=== PATIENT | female | born 1945 | race Caucasian/White ===

== ENCOUNTER 2017-07-07 05:32 | Day surgery (SDC) | payer OTHER ==
[2017-07-04 12:53] VITALS: BMI 31.0
[~2017-07-07] VITALS: Ht 172.7 cm; Wt 91.8 kg
[~2017-07-07 05:32] MED LIST: CITA20TA9 PO; FLUT0.15; LANS30CA12 PO; LEVO112T2 PO; LINA1CAP PO; LISI20TA55 PO; LORA-741 PO; METO50TA7 PO; OMEP20CA9 PO; ONDA8TAB12 PO; POLY335040 PO; VNTHFA/IN INH; WARF5TAB90 PO
[2017-07-07 05:52] VITALS: BP 165/85; PULSE 85; TEMP 36.7; O2SAT 92; Ht 172.7 cm; Wt 91.8 kg
[2017-07-07] MEDS ORDERED: LACTATED RINGER'S 1000ML 1,000 ML IV SCH (06:00)
[2017-07-07 06:28] LABS: INR 1.3 (0.9-1.1); PARTIAL THROMBOPLASTIN RATIO 1.1; PROTHROMBIN TIME (PATIENT) 13.8 SECONDS (9.0-12.0)
[2017-07-07] MEDS ORDERED: PROPOFOL IV EMULSION 10 MG/ML 20 ML VIAL IV ONE (06:51)
[2017-07-07] MEDS ORDERED: MIDAZOLAM HCL 1 MG/ML 2ML VIAL ONE (06:52)
[2017-07-07] MEDS ORDERED: FENTANYL CITRATE INJ 50 MCG/1 ML 2 ML VIAL ONE (06:52)
[2017-07-07] MEDS ORDERED: BUPIVACAINE 0.5 % 5 MG/1 ML MPF 30ML VIAL ONE (07:02)
--- NOTE | 2017-07-07 07:13 | History & Physical Bridge Note ---
H&P Re-Evaluation Bridge Note: I have examined the patient, reviewed the History & Physical and in the interval since the performance of the History & Physical I have noted the following changes of clinical significance: No changes noted
[2017-07-07] MEDS ORDERED: DEXAMETHASONE SOD INJ 4 MG/ML VIAL ONE (07:58)
[2017-07-07] MEDS ORDERED: ONDANSETRON INJ 2 MG/ML 2 ML VIAL ONE (07:58)
[2017-07-07] MEDS ORDERED: SODIUM CHLORIDE 0.9% 1000ML 1,000 ML IV SCH (08:44)
[2017-07-07] MEDS ORDERED: EpHEDrine SULFATE INJ 50 MG/ML AMP IV PRN (08:45)
[2017-07-07] MEDS ORDERED: LABETALOL HCL IV 5 MG/ML 20ML IV PRN (08:45)
[2017-07-07] MEDS ORDERED: ATROPINE SULFATE 0.1 MG/ML 5ML SYR IV PRN (08:45)
[2017-07-07] MEDS ORDERED: FENTANYL CITRATE INJ 50 MCG/1 ML 2 ML VIAL IV PRN (08:45)
[2017-07-07] MEDS ORDERED: MoRPHine SULFATE 4 MG/ML 1 ML CARP\\VIAL IV PRN (08:45)
[2017-07-07] MEDS ORDERED: PROMETHAZINE HCL INJ 12.5 MG in SODIUM CHLORIDE 0.9% 50ML 50 ML IV PRN (08:45)
[2017-07-07] MEDS ORDERED: OXYCODONE/ACETAMINOPHEN 5-325 TAB PO PRN (08:45)
[2017-07-07] MEDS ORDERED: NALOXONE HCL 0.4 MG/1 ML VIAL/CARP IV PRN (08:45)
[2017-07-07] MEDS ORDERED: ONDANSETRON INJ 2 MG/ML 2 ML VIAL IV PRN ×2 (08:45)
[2017-07-07] MEDS ORDERED: FLUMAZENIL 0.1 MG/1 ML 10 ML VIAL IV PRN (08:45)
--- NOTE | 2017-07-07 08:45 | [facility] Post Operative Brief Note ---
Immediate Operative Summary Operative Date Jul 07, 2017. Pre-Operative Diagnosis History of lymphoma, lymphadenopathy inguinal Post-Operative Diagnosis same as pre-operative Procedure(s) Performed Left Excisional Inguinal Lymph Node Biopsy Surgeon Dr. Leonel Anderson Qa Software Tester Surgeon(s) GENIE Hagen Estimated Blood Loss 5ml Findings See dictation Specimens A: Left inguinal lymph node Drains None Anesthesia General Complication(s) None Disposition Recovery Room / PACU
--- NOTE | 2017-07-07 09:00 | OPERATIVE REPORT ---
DATE OF OPERATION: 07/07/2017 PREOPERATIVE DIAGNOSIS: Left inguinal adenopathy. POSTOPERATIVE DIAGNOSIS: Same. PROCEDURE: Excisional biopsy of left inguinal lymph node. SURGEON: Dr. Anderson. EXTENSION WORK INSTRUCTOR: Gloria Gruber PA-C FINDINGS: The patient had a lymph node that measured approximately 4-5 cm x 3-4 cm in the left inguinal area. There were other lymph nodes in the surrounding tissue that were smaller. TECHNIQUE: The patient was given general anesthesia and the area was prepped and draped in the usual sterile fashion. Incision was made over the previously marked area, carried down through the subcutaneous tissue to the lymph node could be palpated. The lymph node was then away from the surrounding tissues. They were densely adherent in some areas to the wall for lymph node. I was able to bluntly dissect it away in some areas, but others areas I had used the LigaSure to divide the attachments, especially the vascular and lymphatic feeding and draining vessels. Once it was completely freed, it was removed. The wound was irrigated. There was one area with some mild oozing that was easily controlled with cautery. The deep tissues were approximated with interrupted 2-0 Vicryl. The deep subcutaneous tissue was closed with running 2-0 Vicryl. The superficial subcutaneous tissue was closed with running 3-0 Vicryl and the skin was closed with 4-0 Monocryl in a running subcuticular fashion. The skin was cleansed, dried after being anesthetized with 0.5% Marcaine. Benzoin was placed and Steri-Strips applied. The estimated blood loss was 5 mL. Sponge, needle and instrument counts were correct prior to closure. The patient tolerated the surgical procedure without complication and was transferred to recovery. I attest to the content of the Intraoperative Record and any orders documented therein. Any exception s are noted below.
--- NOTE | 2017-07-07 09:02 | Discharge Instructions ---
Discharge Instructions Date of Service Jul 07, 2017. Admission Reason for Admission: Lymph Node Enlargement Discharge Discharge Diagnosis / Problem: Same Discharge Goals Goal(s): Decrease discomfort, Diagnostic testing Activity Recommendations Activity Limitations: per Instructions/Follow-up section Exercise/Sports Limitations: as tolerated Shower/Bathe: tomorrow (Shower only) . Instructions / Follow-Up Instructions / Follow-Up ACTIVITY RECOMMENDATIONS: * Walk as much as possible. * No heavy lifting (>10 lbs.) for 1 week. SPECIAL CARE INSTRUCTIONS: * Ice to surgical site on and off until bedtime tonight. * May shower in 24 hours. Let water run over area and pat dry. * Leave steri strips on for one week. * Call the surgeon's office with any questions or concerns - (ex. temperature higher than 101 degrees F, excessive bleeding or pain). MEDICATIONS: Resume previous medications unless instructed otherwise by your surgeon. * Ibuprofen 600 mg every 6 hours with food * Percocet 1 every 4 hours, as needed for pain FOLLOW UP VISIT: If not already scheduled, please call the office to schedule a two week follow- up appointment. Office number Current Hospital Diet Patient's current hospital diet: Discharge Diet Recommended Diet: Regular Diet Procedures Procedures Performed: Left Excisional Inguinal Lymph Node Biopsy Pending Studies Studies pending at discharge: yes List of pending studies: Pathology Medical Emergencies . Who to Call and When: Medical Emergencies: If at any time you feel your situation is an emergency, please call 911 immediately. . Non-Emergent Contact Non-Emergency issues call your: Primary Care Provider, Surgeon Call Non-Emergent contact if: your pain is worsening, wound has increased redness, wound has increased pain . "Provider Documentation" section prepared by Leonel Anderson. . VTE Core Measure Inpt VTE Proph given/why not?: Warfarin (Coumadin) (Resume today)
--- NOTE | 2017-07-07 09:11 | Anesthesiology Progress Note ---
Anesthesia Post Op Note Date & Time Jul 07, 2017 at 09:11 Vital Signs Pain Intensity: 0 Vital Signs Past 12 Hours Date Time Temp Pulse Resp B/P (MAP) Pulse Ox O2 Delivery O2 Flow Rate FiO2 07/07/17 08:55 36.2 62 18 128/67 96 Room Air 07/07/17 08:45 68 18 126/66 92 Room Air 07/07/17 08:35 68 18 125/69 93 Room Air 07/07/17 08:26 36.2 71 20 122/79 93 Room Air 07/07/17 05:52 36.7 85 20 165/85 (111) 92 Room Air Notes Mental Status: alert / awake / arousable, participated in evaluation Pt Amnestic to Procedure: Yes Nausea / Vomiting: adequately controlled Pain: adequately controlled Airway Patency, RR, SpO2: stable & adequate BP & HR: stable & adequate Hydration State: stable & adequate Anesthetic Complications: no major complications apparent
[2017-07-07 09:15] VITALS: BP 126/59; PULSE 62; TEMP 36.6; O2SAT 93
[2017-07-07 09:45] VITALS: BP 143/74; PULSE 68; TEMP 36.7; O2SAT 94
[2017-07-14 09:27] LABS: NEO FISH BCL1(CCND)IgH t(11;14 See Separate Report; NEO FISH IgH BCL2 t(14;18) See Separate Report
== END 2017-07-07 10:17 | disposition home or self-care (01) ==
LOC: C.ACU 05:32
PROVIDERS: ATTEND Surgery
DX: C82.15 Follicular lymphoma grade II, lymph nodes of inguinal region and lower limb (principal); Z85.72 Personal history of non-Hodgkin lymphomas; J44.9 Chronic obstructive pulmonary disease, unspecified; E03.9 Hypothyroidism, unspecified; K31.84 Gastroparesis; M81.0 Age-related osteoporosis without current pathological fracture; Z86.718 Personal history of other venous thrombosis and embolism; Z79.01 Long term (current) use of anticoagulants; Z79.899 Other long term (current) drug therapy

== ENCOUNTER 2019-08-03 13:44 | Inpatient (IN) ==
--- OUTSIDE RECORDS SUMMARY | 2019-08-03 13:47 | External Medical Summary | Continuity of Care Document ---
:1945 Author Name Vladislav Khan Address Unavailable Unavailable , Care Team Providers Name Role Phone Maverick Khan Unavailable [email or web address]. [email or web address] [email or web address] Llanos [email or web address]. Unavailable [email or web address] 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 Refills: 0 Metoclopramide HCl - 10 MG Oral Tablet; TAKE 1 TABLET 30 MINUTES BEFORE MEALS AND AT BEDTIME. Erin Adams Start: 17-Apr-2011 Refills: 0 Zenpep [id number] UNIT CPEP; 2 with meals and before bedtime Erin Adams Start: 17-Apr-2011 Refills: 0 Warfarin Sodium 5 MG Oral Tablet; TAKE 1 AND 1/2 TABLE TS DAILY. Erin Adams Start: 24-Oct-2010 Quantity: 45 Refills: 5 hydroCHLOROthiazide 12.5 MG Oral Tablet; TAKE 1 TABLET DAILY NEEDED. Erin Llanos Start: 07-Oct-2011 Quantity: 90 Refills: 10 Atenolol 50 MG Oral Tablet; TAKE ONE TABLET BY MOUTH E VERY DAY DIRECTED Erin Adams Start: 13-Aug-2011 Quantity: 30 Refills: 12 Omeprazole 20 MG Oral Capsule Delayed Release; TAKE 1 CAPSUL E Daily Refills: 0 LORazepam 0.5 MG Oral Tablet; TAKE 1 TABLET TWICE DAILY N EEDED. 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) Status: Completed History of Sinus Surgery Status: Complet ed Immunizations Immunizations not documented Family History Mother Family history of Malignant Pancreatic Neoplasm Status: Acti ve Father Family history of Malignant Lung Neoplasm (V16.1) Status: Ac tive Unknown Family Member Family history of Hypertension (V17.49) Status: Active Comments: Family History Family history of Diabetes Mellitus (V18.0) Status: Active Comments: Family History Social History - Smoking Status Never smoker Plan of Treatment Planned Observations Planned Goals not documented Results No Known Results Results not documented
[2019-08-03] MEDS ORDERED: SODIUM CHLORIDE 0.9% 1000ML 1,000 ML IV ONE (14:27)
[2019-08-03] MEDS ORDERED: OPTIRAY 320 125ml IV PRN (14:28)
--- NOTE | 2019-08-03 14:34 | CT Scan Report ---
CT head/brain wo con CLINICAL HISTORY: left facial droop HISTORY OF LYMPHOMA COMPARISON STUDY: 01/05/2011 TECHNIQUE: Axial CT of the brain is performed from the vertex to the skull base. IV contrast was not administered for this examination. A dose lowering technique was utilized adhering to the principles of ALARA. CT DOSE: FINDINGS: No intra or extra-axial mass lesions are visualized. There is no CT evidence of acute cortical infarc tion. There is no evidence of midline shift. There is no acute hemorrhage. No calvarial fractures ar e visualized. There are patchy white matter hypodensities likely on a small vessel basis. There is no evidence of pathologic ventricular dilatation. There is a small right mastoid effusion. IMPRESSION: No acute intracranial findings Electronically signed by: Ronnie Lenz M.D. 08/03/2019 2:32 PM
--- NOTE | 2019-08-03 14:44 | CT Scan Report ---
CT angio head w con CLINICAL HISTORY: left facial droop TECHNIQUE: CT angiography of the head was performed in a dynamic helical fashion during intravenous a dministration of 120 cc of Optiray 320. MIP imaging was performed. A dose lowering technique was util ized adhering to the principles of ALARA. CT DOSE: 1063.54 mGy.cm COMPARISON STUDY: No previous studies for comparison. FINDINGS: There are no lesion suspicious for aneurysm. There are no major intracranial branch occlusi ons. The dural venous sinuses appear patent. Note incidental note is made of a mildly expanded sella which appears "empty". IMPRESSION: No significant vascular abnormalities identified Electronically signed by: Ronnie Lenz M.D. 08/03/2019 2:42 PM
--- NOTE | 2019-08-03 14:48 | Emergency Department Note ---
Entered by Stacie Oliver acting as a scribe for Winston Crowell MD History of Present Illness General Chief complaint: Syncope (Near Syncope) Time Seen by Provider: 08/03/19 14:06 Source: patient History of Present Illness Onset (ago): minute(s) (68 minutes) Location: head Pain Consistency: + other (episode) Quality: + other (near-syncopal event) Associated symptoms: + denies other symptoms (changes in speech patterns, difficulty finding words) and + other (bilateral leg weakness, left sided facial droop, decreased sensation in left side of face and left arm, pain in left leg) The patient is a 73 year old female that is presenting to the Emergency Room with complaints of a near syncopal episode that occurred this afternoon around 1300. The patient reports that she was eating lunch when she started to feel weird. She states that she is unsure of the exact time of onset for her symptoms. She notes that she went to the bathroom as she felt she had to have a bowel movement. She states that she had diarrhea at that time. She reports that she then had to grab onto a bar to stand up from the toilet. She states that she started to fall down slowly because she felt weak in her legs and so she sat down on the ground. She denies hitting her head or any other trauma down the fall. The patient states that she lost some control of her bowels during the fall. She reports that she currently feels weak in her bilateral legs. She notes some decreased sensation in the left side of her face but states that it is slowly returning. She reports that the left side of her face feels funny. She states that she has decreased sensation in her left arm. The patient notes some mild left sided facial drooping but states that she has some facial drooping at baseline secondary to bilateral parotid surgeries. She denies any changes in her speech of any difficulty getting her words out. She notes that she was feeling shaky and hot but states that these symptoms have decreased since arriving in the ED. She reports that she has intermittent pain in her left leg while in the ED. She reports that she has tremor on the right side at her baseline. The pat ient states that she has a history of complete parotidectomy on the left side and a partial parotidectomy on the right side. She notes that she was thought to have had a possible stroke after her first surgery but states that it was ruled out via CT. The patient reports that she has a history of blood clots in her leg in 2007 and notes that she takes Coumadin. She notes that her INR was 5.3 yester day and states that she did not take her Coumadin yesterday as a result. She states that she has an IV filter in place. She states that she is unsure if she has a clotting disorder. She reports that she has a history of neuralgia in her left temporal region but she denies that this resembles her current symptoms. Home Medications Home Medications Medication Instructions Recorded Confirmed Type acyclovir 400 mg PO BID 08/03/19 08/03/19 History benzonatate 100 mg PO TID PRN 08/03/19 08/03/19 History cholecalciferol (vitamin D3) 1,000 unit PO DAILY 08/03/19 08/03/19 History cyanocobalamin (vitamin B-12) 100 mcg PO DAILY 08/03/19 08/03/19 History fluticasone propionate [Flonase 2 spray INTRANASAL DAILY 08/03/19 08/03/19 History Allergy Relief] gabapentin 300 mg PO QID 08/03/19 08/03/19 History levothyroxine 112 mcg PO QAM 08/03/19 08/03/19 History losartan-hydrochlorothiazide 1 tab PO DAILY 08/03/19 08/03/19 History metoprolol succinate 100 mg PO DAILY 08/03/19 08/03/19 History oxcarbazepine 150 mg PO HS 08/03/19 08/03/19 History oxcarbazepine 300 mg PO DAILY 08/03/19 08/03/19 History pantoprazole 40 mg PO DAILY 08/03/19 08/03/19 History rosuvastatin 40 mg PO HS 08/03/19 08/03/19 History venlafaxine 75 mg PO DAILY 08/03/19 08/03/19 History warfarin 5 mg PO SUTUWETHSA@1600 08/03/19 08/03/19 History warfarin 7.5 mg PO MOFR@1600 08/03/19 08/03/19 History Allergies Allergy/AdvReac Type Severity Reaction Status Date / Time No Known Allergies Allergy Unverified 08/03/19 14:25 Past Med/Surg History Medical History Thoracic aortic aneurysm without rupture (Chronic) Follicular lymphoma grade I (Chronic) Post-herpetic trigeminal neuralgia (Chronic) CKD (chronic kidney disease), stage III (Chronic) Esophageal reflux (Chronic) COPD (chronic obstructive pulmonary disease) (Chronic) Gastroparesis (Chronic) Hypothyroidism (Chronic) Essential tremor (Chronic) H/O: hysterectomy (Chronic) HLD (hyperlipidemia) (Chronic) HTN (hypertension) (Chronic) Surgical History H/O parotidectomy (Chronic) History of parotid gland removal (Chronic) S/P insertion of IVC (inferior vena caval) filter (Chronic) S/P cholecystectomy (Chronic) Family History Other Cancer Hypertension Social History Preferred Language: Thai Communication Ability: Effective 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 and A total of 10 systems reviewed and were otherwise negative Physical Exam Vital Signs Vital Signs - 24 hr 08/03/19 13:59 08/03/19 14:00 08/03/19 16:02 Temperature 37.1 C Temperature Source Oral Sepsis Recent Fever Within 48 Hours No Sepsis Action Taken by Nursing No Action Required No Action Required Pulse Rate 67 Pulse Rate [Left] 64 Pulse Rhythm Regular Pulse Strength Normal Respiratory Rate 24 18 Respiratory Effort / Characteristics Non-Labored Spontaneous Non-Labored Spontaneous Respiratory Depth Normal Normal Respiratory Pattern Regular Blood Pressure 106/50 L Blood Pressure [Right Arm] 129/74 Blood Pressure Mean 68 Blood Pressure Mean [Right Arm] 92 Blood Pressure Position Sitting Blood Pressure Position [Right Arm] Lying Pulse Oximetry 94 96 Oxygen Delivery Method Room Air Room Air 08/03/19 16:48 Temperature Temperature Source Sepsis Recent Fever Within 48 Hours Sepsis Action Taken by Nursing Pulse Rate Pulse Rate [Left] 67 Pulse Rhythm Pulse Strength Respiratory Rate 18 Respiratory Effort / Characteristics Spontaneous Respiratory Depth Respiratory Pattern Blood Pressure Blood Pressure [Right Arm] 129/74 Blood Pressure Mean Blood Pressure Mean [Right Arm] 92 Blood Pressure Position Blood Pressure Position [Right Arm] Lying Pulse Oximetry 95 Oxygen Delivery Method Room Air GENERAL: Awake, alert, fatigued-appearing, in no distress HENT: Normocephalic, atraumatic. Oropharynx with dry mucous membranes and otherwise unremarkable. EYES: Normal conjunctiva. Sclera non-icteric. EOMI. No nystamgus. PEARRL. NECK: Supple. No nuchal rigidity. FROM. No JVD. RESPIRATORY: CTA bilaterally. CARDIAC: Regular rate, normal rhythm. Extremities warm and well perfused. Pulses equal. ABDOMEN: Soft, non-distended. No tenderness to palpation. No rebound or guarding. No masses. RECTAL: Deferred. MUSCULOSKELETAL: Chest examination reveals no tenderness. The back is symmetrical on inspection without obvious abnormality. There is no CVA tenderness to palpation. No joint edema. LOWER EXTREMITIES: Calves are equal size bilaterally and non-tender. No edema. No discoloration. NEURO: Mild blunting of left labionasal fold. Symmetric face with smile. Intention tremor of bilateral upper extremities with left greater than right. No pronator drift. Slight symmetrical weakness of bilateral lower extremities. Fluent speech. No word finding difficulty. SKIN: No rash or jaundice noted. Course 1408:The patient was evaluated in room B06. A complete history and physical examination was performed. A stroke alert was called at this time and the patient was moved to B01. 1430: I discussed the patient's case with Dr. Glasgow, [facility], who states that she has a low suspicion of a stroke at this time given patient's INR level and her equivocal exam findings. She does not recommend tPA be given. She states that she does not feel an evaluation by her is necessary given her exam findings and recommends an MRI. She will evaluate the MRI and decide on further treatment at that time. 1441: I reviewed the patient's notes from a neurology visit at [facility]. She has a history of parathesias in the bilateral neck and mild difficult with left brow elevation. She has chronic right facial contractions status post the surgery on her paratoid in 2013. Mastoid strength deviates the jaw to the right. 1448: INR is 4.6 at this time. 1453 I reevaluated the patient at this time. She is resting comfortably. 1514: The patient was moved from B01 at this time and stroke alert was removed. 1521: I discussed the patients case with ALBINO Chamorro, who will evaluate the patient for further management and care with Dr. Martel as the attending physician. 1530: Upon reevaluation, the patient is resting comfortably. I discussed laboratory and radiographic results with the patient. She verbalized agreement of the treatment plan. The patient will be evaluated for further management and care. Administered Medications Acetaminophen (Tylenol) 650 mg PO Q4H PRN PRN Reason: Pain or Fever Stop: 09/02/19 17:58 Last Admin: 08/03/19 20:51 Dose: 650 mg Documented by: [id number] Acyclovir (Zovirax) 400 mg PO BID AJAY Stop: 09/02/19 20:59 Last Admin: 08/03/19 20:42 Dose: 400 mg Documented by: [id number] Gabapentin (Neurontin) 300 mg PO QID AJAY Stop: 09/02/19 18:59 Last Admin: 08/03/19 23:14 Dose: Not Given Documented by: [id number] Admin: 08/03/19 20:44 Dose: 300 mg Documented by: [id number] Gadobutrol (Gadavist 65ml) 9 ml IV ONCE PRN PRN Reason: Interaction Checking Stop: 08/07/19 20:19 Last Admin: 08/03/19 20:21 Dose: 9 ml Documented by: [id number] Potassium Chloride 40 meq/ (Sodium Chloride) 1,020 mls @ 60 mls/hr IV .Q17H AJAY Stop: 08/04/19 11:59 Last Infusion: 08/03/19 23:18 Dose: 60 mls/hr Documented by: [id number] Admin: 08/03/19 20:41 Dose: 100 mls/hr Documented by: [id number] Oxcarbazepine (Trileptal) 150 mg PO HS AJAY Stop: 09/02/19 20:59 Last Admin: 08/03/19 20:43 Dose: 150 mg Documented by: [id number] Rosuvastatin Calcium (Crestor) 40 mg PO HS AJAY Stop: 09/02/19 20:59 Last Admin: 08/03/19 20:44 Dose: 40 mg Documented by: [id number] Discontinued Medications Sodium Chloride (Nss 1000ml) 1,000 mls @ 999 mls/hr IV .Q1H1M ONE Stop: 08/03/19 15:27 Last Infusion: 08/03/19 15:53 Dose: 0 mls/hr Documented by: [id number] Admin: 08/03/19 14:51 Dose: 999 mls/hr Documented by: [id number] Magnesium Sulfate/Dextrose (Magnesium Sulfate / D5w) 1 gm in 100 mls @ 100 mls/hr IV ONE ONE Stop: 08/04/19 00:13 Last Infusion: 08/04/19 00:51 Dose: 0 mls/hr Documented by: [id number] Admin: 08/03/19 23:43 Dose: 100 mls/hr Documented by: [id number] Ioversol (Optiray 320 125ml) 120 ml IV ONCE PRN PRN Reason: Interaction Checking Stop: 08/07/19 14:27 Last Admin: 08/03/19 14:29 Dose: 120 ml Documented by: [id number] Potassium Chloride (Klor-Con M20) 40 meq PO NOW STA Stop: 08/03/19 23:15 Last Admin: 08/03/19 23:43 Dose: 40 meq Documented by: [id number] Medical Decision Making Differential Diagnosis Differential diagnosis: Etiologies such as metabolic, infection, hypo/hyperglycemia, electrolyte abnormalities, cardiac sources, intracerebral event, toxicologic, neurologic, as well as others were entertained. Medical Records Attestation: I reviewed the patient's medical records. Home Medications Current Medication List: was personally reviewed by me Laboratory Data Attestation: I reviewed the patient's lab results. Result diagrams: 08/03/19 14:40 08/03/19 21:20 Lab Results 08/03/19 08/03/19 08/03/19 Range/Units 14:37 14:40 14:40 WBC 7.89 (4.8-10.8) K/uL RBC 3.65 L (4.2-5.4) M/uL Hgb 11.1 L (12.0-16.0) g/dL POC Hgb (12.0-16.0) g/dl Hct 30.9 L (37-47) % POC Hct (37-47) % MCV 84.7 (80-100) fL MCH 30.4 (25-34) pg MCHC 35.9 (32-36) g/dL RDW Std Deviation 42.1 (36.4-46.3) fL RDW Coeff of Rosamaria 13.7 (11.5-14.5) % Plt Count 226 (130-400) K/uL MPV 8.5 (7.4-10.4) fL Immature Gran % (Auto) 0.1 % Neut % (Auto) 83.7 % Lymph % (Auto) 7.0 % Graves % (Auto) 8.6 % Eos % (Auto) 0.5 % Baso % (Auto) 0.1 % Immature Gran # (Auto) 0.01 (0.00-0.02) K/uL Neut # (Auto) 6.60 H (1.4-6.5) K/uL Lymph # (Auto) 0.55 L (1.2-3.4) K/uL Graves # (Auto) 0.68 H (0.11-0.59) K/uL Eos # (Auto) 0.04 (0-0.5) K/uL Baso # (Auto) 0.01 (0-0.2) K/uL PT 44.7 H (9.0-12.0) Seconds INR 4.9 H (0.9-1.1) APTT 43.0 H (21.0-31.0) Seconds PTT Ratio 1.6 POC Sodium (135-144) mEq/L Sodium (136-145) mmol/L POC Potassium (3.3-5.0) mEq/L Potassium (3.5-5.1) mmol/L POC Chloride (101-112) mEq/L Chloride (98-107) mmol/L Carbon Dioxide (21-32) mmol/L POC Total CO2 (24-31) mEq/l Anion Gap (3-11) POC Anion Gap (16-25) mmol/L POC BUN (7-18) mg/dl BUN (7-18) mg/dl Creatinine (0.6-1.2) mg/dl POC Creatinine (0.6-1.3) mg/dl Est Cr Clr Drug Dosing ml/min Est GFR ( Amer) Est GFR (Non-Af Amer) BUN/Creatinine Ratio (10-20) Glucose (70-99) mg/dl POC Glucose 136 H (70-99) POC Glucose (other) (70-99) mg/dl Osmolality (280-300) mOsm/kg Calcium (8.5-10.1) mg/dl POC Ioniz Calcium Mike (1.12-1.32) mmol/l Magnesium (1.8-2.4) mg/dl Total Bilirubin (0.2-1) mg/dl AST (15-37) U/L ALT (12-78) U/L Alkaline Phosphatase (45-117) U/L Troponin I (0-0.045) ng/ml Total Protein (6.4-8.2) gm/dl Albumin (3.4-5.0) gm/dl Globulin (2.5-4.0) gm/dl Albumin/Globulin Ratio (0.9-2) Blood Type Antibody Screen 08/03/19 08/03/19 08/03/19 Range/Units 14:40 14:40 14:44 WBC (4.8-10.8) K/uL RBC (4.2-5.4) M/uL Hgb (12.0-16.0) g/dL POC Hgb (12.0-16.0) g/dl Hct (37-47) % POC Hct (37-47) % MCV (80-100) fL MCH (25-34) pg MCHC (32-36) g/dL RDW Std Deviation (36.4-46.3) fL RDW Coeff of Rosamaria (11.5-14.5) % Plt Count (130-400) K/uL MPV (7.4-10.4) fL Immature Gran % (Auto) % Neut % (Auto) % Lymph % (Auto) % Graves % (Auto) % Eos % (Auto) % Baso % (Auto) % Immature Gran # (Auto) (0.00-0.02) K/uL Neut # (Auto) (1.4-6.5) K/uL Lymph # (Auto) (1.2-3.4) K/uL Graves # (Auto) (0.11-0.59) K/uL Eos # (Auto) (0-0.5) K/uL Baso # (Auto) (0-0.2) K/uL PT (9.0-12.0) Seconds INR (0.9-1.1) APTT (21.0-31.0) Seconds PTT Ratio POC Sodium (135-144) mEq/L Sodium 122 L (136-145) mmol/L POC Potassium (3.3-5.0) mEq/L Potassium 3.3 L (3.5-5.1) mmol/L POC Chloride (101-112) mEq/L Chloride 86 L (98-107) mmol/L Carbon Dioxide 27 (21-32) mmol/L POC Total CO2 (24-31) mEq/l Anion Gap 9.0 (3-11) POC Anion Gap (16-25) mmol/L POC BUN (7-18) mg/dl BUN 11 (7-18) mg/dl Creatinine 1.06 (0.6-1.2) mg/dl POC Creatinine (0.6-1.3) mg/dl Est Cr Clr Drug Dosing 57.1 ml/min Est GFR ( Amer) 59.9 Est GFR (Non-Af Amer) 51.7 BUN/Creatinine Ratio 10.3 (10-20) Glucose 123 H (70-99) mg/dl POC Glucose (70-99) POC Glucose (other) (70-99) mg/dl Osmolality 265 L (280-300) mOsm/kg Calcium 8.0 L (8.5-10.1) mg/dl POC Ioniz Calcium Mike (1.12-1.32) mmol/l Magnesium 1.9 (1.8-2.4) mg/dl Total Bilirubin 0.3 (0.2-1) mg/dl AST 14 L (15-37) U/L ALT 20 (12-78) U/L Alkaline Phosphatase 137 H (45-117) U/L Troponin I < 0.015 (0-0.045) ng/ml Total Protein 6.3 L (6.4-8.2) gm/dl Albumin 3.2 L (3.4-5.0) gm/dl Globulin 3.1 (2.5-4.0) gm/dl Albumin/Globulin Ratio 1.0 (0.9-2) Blood Type A Positive Antibody Screen NEGATIVE 08/03/19 Range/Units 14:47 WBC (4.8-10.8) K/uL RBC (4.2-5.4) M/uL Hgb (12.0-16.0) g/dL POC Hgb 10.5 L (12.0-16.0) g/dl Hct (37-47) % POC Hct 31 L (37-47) % MCV (80-100) fL MCH (25-34) pg MCHC (32-36) g/dL RDW Std Deviation (36.4-46.3) fL RDW Coeff of Rosamaria (11.5-14.5) % Plt Count (130-400) K/uL MPV (7.4-10.4) fL Immature Gran % (Auto) % Neut % (Auto) % Lymph % (Auto) % Graves % (Auto) % Eos % (Auto) % Baso % (Auto) % Immature Gran # (Auto) (0.00-0.02) K/uL Neut # (Auto) (1.4-6.5) K/uL Lymph # (Auto) (1.2-3.4) K/uL Graves # (Auto) (0.11-0.59) K/uL Eos # (Auto) (0-0.5) K/uL Baso # (Auto) (0-0.2) K/uL PT (9.0-12.0) Seconds INR (0.9-1.1) APTT (21.0-31.0) Seconds PTT Ratio POC Sodium 121 L (135-144) mEq/L Sodium (136-145) mmol/L POC Potassium 3.6 (3.3-5.0) mEq/L Potassium (3.5-5.1) mmol/L POC Chloride 83 L (101-112) mEq/L Chloride (98-107) mmol/L Carbon Dioxide (21-32) mmol/L POC Total CO2 29 (24-31) mEq/l Anion Gap (3-11) POC Anion Gap 13.0 L (16-25) mmol/L POC BUN 12 (7-18) mg/dl BUN (7-18) mg/dl Creatinine (0.6-1.2) mg/dl POC Creatinine 1.1 (0.6-1.3) mg/dl Est Cr Clr Drug Dosing ml/min Est GFR ( Amer) Est GFR (Non-Af Amer) BUN/Creatinine Ratio (10-20) Glucose (70-99) mg/dl POC Glucose (70-99) POC Glucose (other) 123 H (70-99) mg/dl Osmolality (280-300) mOsm/kg Calcium (8.5-10.1) mg/dl POC Ioniz Calcium Mike 1.05 L (1.12-1.32) mmol/l Magnesium (1.8-2.4) mg/dl Total Bilirubin (0.2-1) mg/dl AST (15-37) U/L ALT (12-78) U/L Alkaline Phosphatase (45-117) U/L Troponin I (0-0.045) ng/ml Total Protein (6.4-8.2) gm/dl Albumin (3.4-5.0) gm/dl Globulin (2.5-4.0) gm/dl Albumin/Globulin Ratio (0.9-2) Blood Type Antibody Screen Imaging Data Radiologist's Impression: Radiology results as stated below per my review and the radiologist's interpretation: CT head/brain wo con CLINICAL HISTORY: left facial droop HISTORY OF LYMPHOMA COMPARISON STUDY: 01/05/2011 TECHNIQUE: Axial CT of the brain is performed from the vertex to the skull base. IV contrast was not administered for this examination. A dose lowering technique was utilized adhering to the principles of ALARA. CT DOSE: FINDINGS: No intra or extra-axial mass lesions are visualized. There is no CT evidence of acute cortical infarction. There is no evidence of midline shift. There is no acute hemorrhage. No calvarial fractures are visualized. There are patchy white matter hypodensities likely on a small vessel basis. There is no evidence of pathologic ventricular dilatation. There is a small right mastoid effusion. IMPRESSION: No acute intracranial findings Electronically signed by: Ronnie Lenz M.D. 08/03/2019 2:[address] angio head w con CLINICAL HISTORY: left facial droop TECHNIQUE: CT angiography of the head was performed in a dynamic helical fashion during intravenous administration of 120 cc of Optiray 320. MIP imaging was performed. A dose lowering technique was utilized adhering to the principles of ALARA. CT DOSE: 1063.54 mGy.cm COMPARISON STUDY: No previous studies for comparison. FINDINGS: There are no lesion suspicious for aneurysm. There are no major intracranial branch occlusions. The dural venous sinuses appear patent. Note incidental note is made of a mildly expanded sella which appears "empty". IMPRESSION: No significant vascular abnormalities identified Electronically signed by: Ronnie Lenz M.D. 08/03/2019 2:[address] angio neck with con CLINICAL HISTORY: left facial droop COMPARISON STUDY: No previous studies for comparison. TECHNIQUE: CT angiography was performed from the aortic arch to the skull base. MIP imaging was performed. The patient was scanned in a dynamic helical fashion during intravenous administration of 120 cc of Optiray 320. A dose lowering technique was utilized adhering to the principles of ALARA. CT DOSE: Technique: CT angiogram of the carotid and vertebral arteries was obtained using intravenous contrast and 3-D reconstruction. NASCET criteria was utilized. Findings: There is a left aortic arch with an aberrant right subclavian artery. The right carotid revealed no evidence of aneurysm and no evidence of dissection. There is no evidence of hemodynamic significant stenosis. The left carotid revealed no evidence of hemodynamic significant stenosis. There is no evidence of aneurysm. There is no evidence of dissection. There is no evidence of hemodynamically significant vertebral stenosis. There is no evidence of vertebral dissection. There is a 70% diameter stenosis of the left subclavian artery origin. IMPRESSION: 1. No evidence of hemodynamically significant carotid or vertebral artery stenosis. No evidence of dissection. 2. 70% diameter stenosis of the left subclavian artery origin 3. Left aortic arch with an aberrant right subclavian artery Electronically signed by: Ronnie Lenz M.D. 08/03/2019 2:50 PM XR chest 1V portable CLINICAL HISTORY: 73 years-old Female presenting with syncope. TECHNIQUE: Portable upright AP view of the chest was obtained. COMPARISON: 07/30/2013. FINDINGS: Atherosclerosis of the aortic arch. Cardiac silhouette mildly enlarged. Mild pul monary vascular prominence. Coarsened lung markings. No focal opacity. No large effusion or pneumothorax. Degenerative changes of the thoracic spine. Upper abdomen normal. IMPRESSION: 1. Mild cardiomegaly and mild volume overload. No advanced congestive change or genaro pulmonary edema. Electronically signed by: Mandeep Paul M.D. 08/03/2019 3:27 PM ECG Data Attestation: I personally reviewed and interpreted this ECG as follows: Indication: weakness Rate (beats per minute): 68 Rhythm: normal sinus Findings: + RBBB; no PAC, no PVC, no ST depression, no ST elevation, no acute ischemic change and no ectopy Comparison ECG Date: from (07/30/2013) Change: the following changes noted (RBBB now present) Blood Pressure Blood Pressure Findings: Low blood pressure MDM Narrative The patient is a pleasant 73-year-old woman with a past medical history of grade 1 follicular lymphoma, COPD, CKD, hypertension, tremor, postherpetic trigeminal neuralgia after zoster in 2018, history of DVT on Coumadin status post IVC filter, chronic constipation, hypothyroidism, gastroparesis, esophageal reflux who presents emergency department after having acute onset generalized weakness that have been after eating lunch today where she reports feeling "unwell" around 1300 subsequently walking to the bathroom to have a bowel movement but was overwhelmed with weakness per hpi. Of note, the patient reports she did have diarrhea. On arrival the patient is fatigued appearing but no acute distress, afebrile stable vital signs. On exam the patient has notable asymmetry to her face at rest for which the patient is very poor historian regarding the chronicity of this despite having bilateral neck surgeries. I showed the patient and image of her on a phone and she initially reported that her face looked like it usually does however when I pointed out the blunting of her left nasolabial fold compared to her right she did feel as though this was a new. On exam the patient has intention tremor of bilateral upper extremities but otherwise no overt pronator drift or upper extremity weakness. She has generalized weakness in the bilateral lower extremities that is symmetric. Despite the patient's facial asymmetry, she does have symmetry with smile and is able to close her lips and blow leaking of air. She has fluent speech and no word finding difficulty. Given patient's equivocal history/exam stroke alert was activated. I did review the case with tele-stroke neurologist Dr. Glasgwo and we agreed that given she had an supratherapeutic INR yesterday of 5, her equivocal exam, and her history of lymphoma she would not be a TPA candidate. She does recommend an MRI for further evaluation of the patient's symptoms and it would be most effective to evaluate the patient at that time with more imaging information. In the interim we were able to obtain outpatient notes from [facility] which does report a neurology visit yesterday where it was documented that the patient likely had a right facial contracture chronically from her neck surgeries and it was commented that she had fluent speech and therefore there were no concerns at that time. EKG without overt acute ischemia. Chest x-ray negative for acute process, unlikely to be overload given lack of respiratory sx and normal saturation on RA. CTA of the head and neck was performed and did not demonstrate any areas of ischemia or ICH. There is 70% stenosis of the left oden bclavian artery at its origin and otherwise no severe narrowing or occlusion of large vessels. However, patient's sx not c/w subclavian steal. WBC within normal limits. H/H 1130.9 without prior values for comparison. Platelets within normal limits. INR supratherapeutic at 4.9. Sodium 124 in the setting of prior value yesterday of 127. Troponin negative/undetectable. UA without evidence of infection. Patient agreeable with admission. Case was discussed with Mike Chamorro PA-C, who evaluate the patient for admission. Impression & Plan Hyponatremia, Near syncope, Generalized weakness, Tremor Discharge Plan Visit Data *Final* Discharge Date/Time: 08/03/19 17:42 Chief Complaint: Syncope (Near Syncope) ED Provider: Winston Crowell Discharge Problem: Hyponatremia, Near syncope, Generalized weakness, Tremor Patient Disposition: Admitted As Inpatient Discharge Instructions Interventions: ED Discharge Assessment Last Done: 08/03/19 17:42 The scribe's documentation has been prepared under my direction and personally reviewed by me in its entirety. I confirm that the note above accurately reflects all work, treatment, procedures, and medical decision making performed by me.
[2019-08-03 14:51] LABS: Basophils # (auto) 0.01 K/uL (0-0.2); Basophils % (auto) 0.1 %; Eosinophils # (auto) 0.04 K/uL (0-0.5); Eosinophils % (auto) 0.5 %; Hematocrit (blood only) 30.9 % (37-47); Hemoglobin 11.1 g/dL (12.0-16.0); Immature Granulocytes # (auto) 0.01 K/uL (0.00-0.02); Immature Granulocytes % (auto) 0.1 %; Lymphocytes # (auto) 0.55 K/uL (1.2-3.4); Mean Corpuscular Hemoglobin 30.4 pg (25-34); Mean Corpuscular Hgb Conc 35.9 g/dL (32-36); Mean Corpuscular Volume 84.7 fL (80-100); Mean Platelet Volume 8.5 fL (7.4-10.4); Monocytes # (auto) 0.68 K/uL (0.11-0.59); Monocytes % (auto) 8.6 %; Neutrophils % (auto) 83.7 %; Platelet Count 226 K/uL (130-400); RDW Coefficient of Variation 13.7 % (11.5-14.5); RDW Standard Deviation 42.1 fL (36.4-46.3); Red Blood Count 3.65 M/uL (4.2-5.4); White Blood Count 7.89 K/uL (4.8-10.8)
--- NOTE | 2019-08-03 14:51 | CT Scan Report ---
CT angio neck with con CLINICAL HISTORY: left facial droop COMPARISON STUDY: No previous studies for comparison. TECHNIQUE: CT angiography was performed from the aortic arch to the skull base. MIP imaging was perfo rmed. The patient was scanned in a dynamic helical fashion during intravenous administration of 120 c c of Optiray 320. A dose lowering technique was utilized adhering to the principles of ALARA. CT DOSE: Technique: CT angiogram of the carotid and vertebral arteries was obtained using intravenous contrast and 3-D reconstruction. NASCET criteria was utilized. Findings: There is a left aortic arch with an aberrant right subclavian artery. The right carotid revealed no evidence of aneurysm and no evidence of dissection. There is no evidenc e of hemodynamic significant stenosis. The left carotid revealed no evidence of hemodynamic significant stenosis. There is no evidence of an eurysm. There is no evidence of dissection. There is no evidence of hemodynamically significant vertebral stenosis. There is no evidence of verte bral dissection. There is a 70% diameter stenosis of the left subclavian artery origin. IMPRESSION: 1. No evidence of hemodynamically significant carotid or vertebral artery stenosis. No evidence of di ssection. 2. 70% diameter stenosis of the left subclavian artery origin 3. Left aortic arch with an aberrant right subclavian artery Electronically signed by: Ronnie Lenz M.D. 08/03/2019 2:50 PM
[2019-08-03 15:02] LABS: iSTAT Creatinine 1.1 mg/dl (0.6-1.3); iSTAT Hemoglobin 10.5 g/dl (12.0-16.0); iSTAT Ionized Calcium 1.05 mmol/l (1.12-1.32); iSTAT Potassium 3.6 mEq/L (3.3-5.0)
[2019-08-03 15:09] LABS: Partial Thromboplastin Ratio 1.6; Prothrombin Time 44.7 Seconds (9.0-12.0)
[2019-08-03 15:12] LABS: Alanine Aminotransferase 20 U/L (12-78); Albumin Level 3.2 gm/dl (3.4-5.0); Aspartate Aminotransferase 14 U/L (15-37); BUN Creatinine Ratio 10.3 (10-20); Blood Urea Nitrogen 11 mg/dl (7-18); Carbon Dioxide 27 mmol/L (21-32); Chloride 86 mmol/L (98-107); Creatinine Clr Calc Pharmacy 57.1 ml/min; Est GFR (African American) 59.9; Est GFR (Non-African American) 51.7; Glucose 123 mg/dl (70-99); Magnesium 1.9 mg/dl (1.8-2.4); Potassium 3.3 mmol/L (3.5-5.1); Sodium 122 mmol/L (136-145)
[2019-08-03 15:17] LABS: Alkaline Phosphatase 137 U/L (45-117); Bilirubin,Total 0.3 mg/dl (0.2-1); Globulin 3.1 gm/dl (2.5-4.0); Total Protein 6.3 gm/dl (6.4-8.2); Troponin I < 0.015 ng/ml (0-0.045)
[2019-08-03 15:22] LABS: INR 4.9 (0.9-1.1)
--- NOTE | 2019-08-03 15:28 | XRay Report ---
XR chest 1V portable CLINICAL HISTORY: 73 years-old Female presenting with syncope. TECHNIQUE: Portable upright AP view of the chest was obtained. COMPARISON: 07/30/2013. FINDINGS: Atherosclerosis of the aortic arch. Cardiac silhouette mildly enlarged. Mild pulmonary vascular promi nence. Coarsened lung markings. No focal opacity. No large effusion or pneumothorax. Degenerative gladys nges of the thoracic spine. Upper abdomen normal. IMPRESSION: 1. Mild cardiomegaly and mild volume overload. No advanced congestive change or genaro pulmonary sabina a. Electronically signed by: Mandeep Paul M.D. 08/03/2019 3:27 PM
--- NOTE | 2019-08-03 17:18 | History & Physical Report ---
Date of Service August 03, 2019 Assessment & Plan (1) Near syncope: This is a 73yo F with a PMH of follicular lymphoma (last chemo in May 2018), post-herpetic trigeminal neuralgia, h/o DVT with IVC filter on coumadin, HTN and HLD who presents after pre-syncopal episode earlier this afternoon. -Pre-syncopal episode following diarrhea, considering vasovagal episode -Also presenting with generalized weakness and left facial droop. Unclear if droop is acute or chronic in setting of chronic facial contracture following surgeries -Strokealert called, telestroke recommending further work-up -CT head, CTA head and neck without acute abnormalities. Neck CTA with 70% diameter stenosis of left subclavian artery -Ordered MRI brain with/without contrast and echo with bubble study for further CVA rule out -Routine neurology consult. PT/OT/speech evaluations, neuro checks -Orthostatic vital repeat, gentle fluid resuscitation, holding losartan/hctz for now (2) Hyponatremia: Sodium of 122 today. Na ~ 127-135 per outpatient lab review -In setting of hctz use, possible SIADH in setting of ongoing follicular lymphoma -Serum osm 265, urine osm pending -Gentle IV fluids. Repeat BMP to monitor sodium (3) Follicular lymphoma grade I: S/p 2 cycles of Rituxin and Bendamustine, last chemo 06/06, s/p bilateral parotidectomy -Follows with Dr. Saucedo. 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 Hold coumadin for now -Daily INR DVT Ppx: Holding coumadin while INR is supratherapeutic Code status: FULL per discussion with patient PCP: Joanne Dispo: Admit to telemetry. Plan to return home once medically stable. Patient seen in collaboration with Dr. Martel. Please see addendum. History of Present Illness Chief Complaint: pre syncopal event Primary Care Provider: Augustina Matthews DO This is a 73yo F with a PMH of follicular lymphoma (last chemo in May 2018), post-herpetic trigeminal neuralgia, h/o DVT with IVC filter on coumadin, HTN and HLD who presents after pre-syncopal episode earlier this afternoon. Patient woke up feeling generally weak but otherwise in normal state of health. Was out to lunch this afternoon around 1300 and had an episode of diarrhea, followed by lightheadedness, sweating and a fall. Denies loss of consciousness or head trauma. Was helped off the ground by a friend. Continued to feel generally weak and was brought to ED for further evaluation by ambulance. Stroke alert was called and tele-stroke recommended further work-up with brain MRI. INR is supratherapeutic at 4.9 so tpa was contraindicated. Currently feeling fatigued and generally weak. Endorsing tingling feeling in left cheek. Denies confusion, difficulty speaking or swallowing or focal weakness or sensory deficits. Has heightened sensation above left eyebrow as a result of postherpetic trigeminal neuralgia for which she follows neurology. Follows with Dr. Saucedo of [facility] for follicular lymphoma with most recent chemo tx in May 2018. Also s/p removal of bilateral parotid glands. Due for PET scan later this week. Denies fever, chills, headache, lightheadedness, visual changes, chest pain, palpitations, shortness of breath, abdominal pain, nausea, vomiting, dysuria or constipation. Allergies Allergy/AdvReac Type Severity Reaction Status Date / Time No Known Allergies Allergy Unverified 08/03/19 14:25 Home Medications Home Medications Medication Instructions Recorded Confirmed Type acyclovir 400 mg PO BID 08/03/19 08/03/19 History benzonatate 100 mg PO TID PRN 08/03/19 08/03/19 History cholecalciferol (vitamin D3) 1,000 unit PO DAILY 08/03/19 08/03/19 History cyanocobalamin (vitamin B-12) 100 mcg PO DAILY 08/03/19 08/03/19 History fluticasone propionate [Flonase 2 spray INTRANASAL DAILY 08/03/19 08/03/19 History Allergy Relief] gabapentin 300 mg PO QID 08/03/19 08/03/19 History levothyroxine 112 mcg PO QAM 08/03/19 08/03/19 History losartan-hydrochlorothiazide 1 tab PO DAILY 08/03/19 08/03/19 History metoprolol succinate 100 mg PO DAILY 08/03/19 08/03/19 History oxcarbazepine 150 mg PO HS 08/03/19 08/03/19 History oxcarbazepine 300 mg PO DAILY 08/03/19 08/03/19 History pantoprazole 40 mg PO DAILY 08/03/19 08/03/19 History rosuvastatin 40 mg PO HS 08/03/19 08/03/19 History venlafaxine 75 mg PO DAILY 08/03/19 08/03/19 History warfarin 5 mg PO SUTUWETHSA@1600 08/03/19 08/03/19 History warfarin 7.5 mg PO MOFR@1600 08/03/19 08/03/19 History Past Med/Surg History Medical History Thoracic aortic aneurysm without rupture (Chronic) Follicular lymphoma grade I (Chronic) Post-herpetic trigeminal neuralgia (Chronic) CKD (chronic kidney disease), stage III (Chronic) Esophageal reflux (Chronic) COPD (chronic obstructive pulmonary disease) (Chronic) Gastroparesis (Chronic) Hypothyroidism (Chronic) Essential tremor (Chronic) H/O: hysterectomy (Chronic) HLD (hyperlipidemia) (Chronic) HTN (hypertension) (Chronic) Surgical History H/O parotidectomy (Chronic) History of parotid gland removal (Chronic) S/P insertion of IVC (inferior vena caval) filter (Chronic) S/P cholecystectomy (Chronic) Family History Other Cancer Hypertension Social History Preferred Language: Urdu Communication Ability: Effective Calculation Clerk Required: No Beliefs That Will Affect Care: None marital status: / Current Living Situation: Alone current occupational status: retired Other Information That Helps Us Care for You: No Feels Safe at Home: Yes Safety Concerns: Feels Safe At This Time Smoking Status: Never smoker Hx Alcohol Use: No Hx Substance Use: No Review of Systems Review of Systems: At least ten systems reviewed and negative except as noted in the HPI. Physical Exam Physical Exam: General Appearance: WD/WN, vitals as above, NAD, sitting up in bed, pleasant, conversing easily Head: normocephalic, atraumatic Eyes: normal inspection, PERRL, conjunctivae normal, anicteric sclerae ENT: external ear and nose normal, oropharynx normal Neck: trachea midline, no thyromegaly normal visual inspection Respiratory: normal respiratory effort, lungs clear to auscultation, no wheeze, rales, rhonchi. Normal insp/exp effort, no accessory muscle use Cardiovascular: regular rate, rhythm, no murmur, normal peripheral pulses. Vessels: no JVD or carotid bruit Chest: normal inspection of chest Abdomen/GI: normal bowel sounds, soft, nontender, no hepatosplenomegaly Extremities/Musculoskelatal: no cyanosis or clubbing, extremities motor strengt h 02/21 Neurologic: PERRL, EOMI, accommodation nl, no dysarthria. + Left sided facial droop, R facial contracture (chronic), CN's II-XI intact bilaterally, + BUE essential tremor, moves all extremities Psychiatric: A+Ox3, euthymic affect Skin: no rashes, normal color, warm/dry Results & Data Vital Signs (Past 12 Hours) Vital Signs Temp Pulse Pulse Resp BP BP Pulse Ox 08/03/19 16:48 67 18 129/74 95 08/03/19 16:02 64 18 129/74 96 08/03/19 14:00 37.1 C 67 24 106/50 L 94 Laboratory Results Short CBC 08/03/19 Range/Units 14:40 WBC 7.89 (4.8-10.8) K/uL Hgb 11.1 L (12.0-16.0) g/dL Hct 30.9 L (37-47) % Plt Count 226 (130-400) K/uL BMP 08/03/19 14:40 Sodium 122 L Potassium 3.3 L Chloride 86 L Carbon Dioxide 27 BUN 11 Creatinine 1.06 Glucose 123 H Calcium 8.0 L Cardiac Enzymes 08/03/19 Range/Units 14:40 Troponin I < 0.015 (0-0.045) ng/ml Liver Function 08/03/19 Range/Units 14:40 Total Bilirubin 0.3 (0.2-1) mg/dl AST 14 L (15-37) U/L ALT 20 (12-78) U/L Alkaline Phosphatase 137 H (45-117) U/L Albumin 3.2 L (3.4-5.0) gm/dl Code Status & VTE Plan VTE Prophylaxis Plan VTE Prophylaxis will be ordered: Yes Supervising Physician Co-Signing Physician Notes HISTORY: Record reviewed. Patient interviewed and examined. Care coordinated with Bria Torres PA-C. Please refer to her documentation for patient's history. Briefly, 73-year-old female with history of lymphoma, hypertension, and other problems noted below. Episode of near syncope in a restaurant today after having loose stools. No associated headache, focal neurologic symptoms, chest pain, palpitations, dyspnea. EXAM: General- no distress Lungs- clear to auscultation; no respiratory distress Cardiovascular- RRR; no murmur; no gallop; no JVD; no pretibial edema Abdomen- + bowel sounds, soft, nontender Extremities- no cyanosis; no calf tenderness Neuro- alert, oriented; PERRL, EOMI; no facial palsy appreciated; tongue midline; no dysarthria or aphasia; motor 5/5 bilat; patellar DTR's 1/2; plantar reflexes downgoing; mild difficulty with left finger to nose which pt attributes to essential tremor Skin- warm & dry DATA: Hemoglobin 11.1, white count 7890, platelet count 226,000. INR 4.9. Sodium 122, potassium 3.3, chloride 86, CO2 22, BUN 11, creatinine 1.06, random glucose 123. Other lab studies as noted. Chest x-ray reviewed the undersigned and formally interpreted by Radiology. Mild cardiomegaly. ? mild volume overload without genaro pulmonary edema. EKG performed at 1353 reviewed and demonstrated normal sinus rhythm at 70/ minute, right bundle branch block. ASSESSMENT AND PLAN: Near syncope and fall after experiencing diarrhea. Brought to the ED for evaluation. Stroke alert and neurology consultation with [facility]-stroke program obtained. Head CT negative for acute vascular event. TPA not administered due to (1) low NH stroke scale (? mild left facial palsy at time of admission) and (2) anticoagulation with warfarin with a supratherapeutic INR. Patient is orthostatic. Episode was preceded by an episode of diarrhea. Suspect that event was secondary to combination of vasovagal episode and orthostasis. MRI of brain pending to rule out acute vascular event. Serum sodium 122. Hyponatremia most likely secondary to diuretic therapy with hydrochlorothiazide, but consider SIADH. Discontinue hydrochlorothiazide, fluid restriction 1500 cc's, follow. Hyperkalemia prior secondary to hydrochlorothiazide. Replace, follow. Follow-up for lymphoma with Hematology/Oncology. History of VTE. On warfarin with supratherapeutic INR. Hold warfarin and titrate dose. Please refer to GENIE Torres's documentation for discussion of other issues.
[2019-08-03] MEDS ORDERED: PHARMACIST DISCHARGE MED REC CONSULT PRN (17:59)
[2019-08-03] MEDS ORDERED: ONDANSETRON INJ 2 MG/ML 2 ML VIAL IV PRN (17:59)
[2019-08-03] MEDS ORDERED: POTASSIUM CHLORIDE 40 MEQ in SODIUM CHLORIDE 0.9% 1000ML 1,000 ML IV SCH (19:00)
[2019-08-03] MEDS ORDERED: GADOBUTROL 65ML VIAL IV PRN (20:20)
[2019-08-03] MEDS: ACYCLOVIR 200 MG CAP PO SCH (20:42)
[2019-08-03] MEDS: GABAPENTIN 300 MG CAP PO SCH ×2 (20:44→23:14)
[2019-08-03] MEDS: ROSUVASTATIN CALCIUM 20 MG TAB PO SCH (20:44)
[2019-08-03] MEDS: ACETAMINOPHEN 325 MG TAB PO PRN (20:51)
[2019-08-03] MEDS ORDERED: OXcarbazepine 150 MG TABLET PO SCH (21:00)
[2019-08-03 21:20] LABS: Appearance Urine Clear (Clear); Bacteria Urine Automated Negative (Negative); Bilirubin Urine Negative (Negative); Blood Urine 1+ (Negative); Color Urine Yellow; Epithelial Cell Urine Auto 20-30 /lpf (0-5); Glucose Urine UA Negative (Negative); Ketones Urine Negative (Negative); Leukocyte Esterase Urine Negative (Negative); Nitrite Urine Negative (Negative); Protein Urine Negative (Negative); Specific Gravity Urine 1.042 (1.000-1.030); Urobilinogen Urine Negative (Negative)
--- NOTE | 2019-08-03 21:44 | Magnetic Resonance Report ---
MR brain wo/w con HISTORY: 73 years-old Female stroke eval acute strokelike symptoms. History of lymphoma. COMPARISON: CT head, CTA head and neck studies of same day, brain MRI 08/09/2013 TECHNIQUE: Multiplanar multisequence MRI of the brain was obtained both with and without the use of 9 .0 mL Gadavist FINDINGS: Residential Sales Associate localizer images demonstrate no gross extracranial abnormality. There is no restricted diffusio n to suggest acute or subacute infarction. The midline structures including the corpus callosum, brai nstem, optic chiasm, pituitary and pineal glands appear unremarkable on the sagittal T1 series. There is no cerebellar tonsillar herniation. Degenerative changes noted about the imaged cervical spine. T here is no acute intracranial hemorrhage, midline shift, abnormal extra-axial collection, hydrocephal us or intracranial mass. Age-related involutional changes. Moderate patchy T2/FLAIR hyperintensities about the white matter of the cerebral hemispheres suggest chronic microvascular ischemic disease, pr ogressively worsened from 2010. There is no abnormal intra-axial or extra-axial enhancement. Major fl ow voids at the level of the skull base appear patent. Mastoid air cells are generally clear. Minimal mucosal thickening of the ethmoid sinuses. The orbits, skull and soft tissues are unremarkable. IMPRESSION: 1. No acute intracranial abnormality, specifically no acute or subacute infarction. 2. No abnormal enhancement. 3. Moderate T2/FLAIR hyperintensities of the white matter suggest chronic microvascular ischemic dise ase, progressively worsened from 2010. The above report was generated using voice recognition software. It may contain grammatical, syntax o r spelling errors. Electronically signed by: Sanchez Rebolledo M.D. 08/03/2019 9:43 PM
[2019-08-03 21:57] LABS: BUN Creatinine Ratio 9.8 (10-20); Creatinine Clr Calc Pharmacy 57.3 ml/min; Est GFR (Non-African American) 53.5; Potassium 3.3 mmol/L (3.5-5.1)
[2019-08-03] MEDS ORDERED: POTASSIUM CHLORIDE 20 MEQ TABCR PO STA (23:14)
[2019-08-03] MEDS ORDERED: MAGNESIUM SULFATE / D5W 1 GM/100 ML BAG IV ONE (23:14)
[2019-08-04 04:29] LABS: Basophils # (auto) 0.01 K/uL (0-0.2); Basophils % (auto) 0.2 %; Eosinophils # (auto) 0.09 K/uL (0-0.5); Eosinophils % (auto) 1.9 %; Hematocrit (blood only) 31.2 % (37-47); Lymphocytes # (auto) 1.14 K/uL (1.2-3.4); Lymphocytes % (auto) 24.6 %; Mean Corpuscular Hemoglobin 30.1 pg (25-34); Mean Corpuscular Hgb Conc 35.3 g/dL (32-36); Mean Corpuscular Volume 85.5 fL (80-100); Mean Platelet Volume 8.5 fL (7.4-10.4); Monocytes # (auto) 0.53 K/uL (0.11-0.59); Monocytes % (auto) 11.4 %; Neutrophils # (auto) 2.86 K/uL (1.4-6.5); Neutrophils % (auto) 61.9 %; Platelet Count 202 K/uL (130-400); RDW Coefficient of Variation 13.9 % (11.5-14.5); RDW Standard Deviation 43.2 fL (36.4-46.3); Red Blood Count 3.65 M/uL (4.2-5.4); White Blood Count 4.63 K/uL (4.8-10.8)
[2019-08-04] MEDS: ACETAMINOPHEN 325 MG TAB PO PRN ×2 (04:37→18:58)
[2019-08-04] MEDS: LEVOTHYROXINE SODIUM 112 MCG TABLET PO SCH (04:38)
[2019-08-04 04:46] LABS: Prothrombin Time 34.2 Seconds (9.0-12.0)
[2019-08-04 04:50] LABS: BUN Creatinine Ratio 10.9 (10-20); Calcium 8.4 mg/dl (8.5-10.1); Creatinine Clr Calc Pharmacy 61.7 ml/min; Est GFR (African American) 67.5; Est GFR (Non-African American) 58.3; Potassium 3.9 mmol/L (3.5-5.1)
[2019-08-04 04:51] LABS: INR 3.7 (0.9-1.1)
[2019-08-04 06:11] LABS: Estimated Average Glucose 126 mg/dl
[2019-08-04] MEDS ORDERED: PERFLUTREN LIPID MICROSPHERE (DEFINITY) IV ONE (07:25)
[2019-08-04] MEDS: VENLAFAXINE HCL XR 75 MG CAPXR PO SCH (08:31)
[2019-08-04] MEDS: METOPROLOL SUCC 50MG EXT REL TAB PO SCH (08:31)
[2019-08-04] MEDS: PANTOprazole 40 MG TAB PO SCH (08:31)
[2019-08-04] MEDS: CYANOCOBALAMIN (VITAMIN B-12) 100 MCG TABLET PO SCH (08:31)
[2019-08-04] MEDS: CHOLECALCIFEROL 1,000 UNITS TAB PO SCH (08:32)
[2019-08-04] MEDS: ACYCLOVIR 200 MG CAP PO SCH ×2 (08:32→20:18)
[2019-08-04] MEDS: GABAPENTIN 300 MG CAP PO SCH ×4 (08:32→20:18)
[2019-08-04] MEDS: FLUTICASONE PROPIONATE NA SPR 16 GM BTL NAE SCH (08:33)
[2019-08-04] MEDS ORDERED: OXcarbazepine 150 MG TABLET PO SCH ×2 (09:00→21:00)
[2019-08-04] MEDS: BENZONATATE 100 MG CAPSULE PO PRN ×2 (11:15→16:52)
--- NOTE | 2019-08-04 15:18 | Neurology Consultation ---
Date of Consultation August 04, 2019 Assessment & Plan (1) Generalized weakness: 1. MRI no stroke 2. CTA head and neck - needs follow up with vascular for 70% L subclavian 3. TTE- 60-65% EF no ASD 4. continue trileptal 300 mg am and 150 mg hs, gabepentin 300 mg QID 5. correct any correctable issues aka sodium, INR 6. follow up with Dr Wagoner as scheduled in out patient will sign off for now. Supervising Physician Co-Signing Physician Notes Patient was seen and examined. Agree with Daphne Bazan PA-C as noted below. A 73 year old woman with Hx of DVT on Coumadin with supratheraputic INR and history of lymphoma admitted with presyncopal or vasovagal episode while using the restroom yesterday. She denies LOC or awareness. Denies weakness, speech changes, or numbness. MRI brain reviewed and shows chronic microvascular ischemic changes. On admission noted to have hyponatremia which is new. Likely related to HCTZ and Trileptal which she takes for post herpetic neuralgia. - I do not believe this patient had a TIA. Presyncopal episode likely micturition induced / vasovagal - Recommend stopping Trileptal due to hyponatremia. Patient agreeable and plans to used CBD oil for pain. - Agree with trending sodium's. Consider nephrology consult if does not improve. Patient can follow up with Dr. Wagoner as outpatient. Please call me with any further questions. History of Present Illness Reason for Consultation: Pre sycnope Requesting Physician: Thea Francisco DO Attending Physician: Thea Francisco DO History of Present Illness Alisha is a 73 year old female with PMH follicular lymphoma (last chemo 05/2018), post herpetic trigeminal neuralgia, h/o DVT with IVC filter on coumadin, HTN, HLD, who presents after a pre-syncopal episode. She was not feeling well but went to [employer] for lunch. She started felling diphoretic and weak hand a episode of diarrhea, light headed and sweating and then fell. She was brought to the ED for stroke alert but no tPa was given due to supra therapeutic INR. She had her normal headache on the left side of her forehead, from her trigeminal neuralgia which she is taking Trileptal and gabepentin. She recently saw Dr Wagoner in neurology for her scheduled appointment. She states she was overall weak denies one sided weakness, numbness tingling, vision changes, CP, SOB, N, V. Allergies Allergy/AdvReac Type Severity Reaction Status Date / Time No Known Allergies Allergy Unverified 08/03/19 14:25 Home Medications Home Medications Medication Instructions Recorded Confirmed Type acyclovir 400 mg PO BID 08/03/19 08/03/19 History benzonatate 100 mg PO TID PRN 08/03/19 08/03/19 History cholecalciferol (vitamin D3) 1,000 unit PO DAILY 08/03/19 08/03/19 History cyanocobalamin (vitamin B-12) 100 mcg PO DAILY 08/03/19 08/03/19 History fluticasone propionate [Flonase 2 spray INTRANASAL DAILY 08/03/19 08/03/19 History Allergy Relief] gabapentin 300 mg PO QID 08/03/19 08/03/19 History levothyroxine 112 mcg PO QAM 08/03/19 08/03/19 History losartan-hydrochlorothiazide 1 tab PO DAILY 08/03/19 08/03/19 History metoprolol succinate 100 mg PO DAILY 08/03/19 08/03/19 History oxcarbazepine 150 mg PO HS 08/03/19 08/03/19 History oxcarbazepine 300 mg PO DAILY 08/03/19 08/03/19 History pantoprazole 40 mg PO DAILY 08/03/19 08/03/19 History rosuvastatin 40 mg PO HS 08/03/19 08/03/19 History venlafaxine 75 mg PO DAILY 08/03/19 08/03/19 History warfarin 5 mg PO SUTUWETHSA@1600 08/03/19 08/03/19 History warfarin 7.5 mg PO MOFR@1600 08/03/19 08/03/19 History Patient History Medical History Thoracic aortic aneurysm without rupture (Chronic) Follicular lymphoma grade I (Chronic) Post-herpetic trigeminal neuralgia (Chronic) CKD (chronic kidney disease), stage III (Chronic) Esophageal reflux (Chronic) COPD (chronic obstructive pulmonary disease) (Chronic) Gastroparesis (Chronic) Hypothyroidism (Chronic) Essential tremor (Chronic) H/O: hysterectomy (Chronic) HLD (hyperlipidemia) (Chronic) HTN (hypertension) (Chronic) Surgical History H/O parotidectomy (Chronic) History of parotid gland removal (Chronic) S/P insertion of IVC (inferior vena caval) filter (Chronic) S/P cholecystectomy (Chronic) Family History Other Cancer Hypertension Social History Preferred Language: Citizen Of [place] Communication Ability: Effective [employer] Required: No Beliefs That Will Affect Care: None marital status: / Current Living Situation: Alone current occupational status: retired Other Information That Helps Us Care for You: No Feels Safe at Home: Yes Safety Concerns: Feels Safe At This Time Smoking Status: Never smoker Hx Alcohol Use: No Hx Substance Use: No Physical Exam Physical Exam: Physical Exam: Constitutional: appearance over nourished, healthy Ears, Nose, Mouth and Throat: mucous membranes moist, no injection and skin normal, eyes normal Cardiovascular: normal S-1 and S-2 and regular rate and rhythm Respiratory: course breath sounds Musculoskeletal: no peripheral edema and good distal pulses Skin: no stigmata of neurocutaneous disease noted and normal and intact Eyes: extraocular muscles intact (EOMI) and pupils equal, round and reactive to light (PERRL) NEUROLOGIC EXAMINATION: Mental status: Alert and interactive Oriented to full date and location Oriented to person Speech fluent with no evidence of aphasia Cranial Nerves slight asymmetry of smile Reflexes: Deep tendon reflexes were symmetrical and graded 2/5. Sensory: hyper sensation to touch to left forehead Coordination: Romberg absent Gait/Stance: Posture normal. Gait normal: with steady with steps, base, turning, tandem gait. Motor: Negative for pronator drift of out stretched arms with eyes closed. Strength: biceps triceps hand claim inspector 5/5, hip flex plantar flex ext 5/5 Results & Data Vital Signs (Past 12 Hours) Vital Signs Temp Pulse Pulse Resp BP Pulse Ox 08/04/19 11:14 36.7 C 64 20 126/76 95 08/04/19 08:30 36.6 C 67 16 131/80 98 08/04/19 06:20 60 08/04/19 03:33 36.5 C 63 18 160/81 H 96 Laboratory Results Abnormal lab results 08/03/19 08/03/19 08/03/19 Range/Units 14:40 14:40 14:40 WBC (4.8-10.8) K/uL RBC (4.2-5.4) M/uL Hgb (12.0-16.0) g/dL Hct (37-47) % Lymph # (Auto) (1.2-3.4) K/uL PT 44.7 H (9.0-12.0) Seconds POC INR (0.9-1.1) INR 4.9 H (0.9-1.1) APTT 43.0 H (21.0-31.0) Seconds Sodium (136-145) mmol/L Potassium (3.5-5.1) mmol/L Chloride (98-107) mmol/L BUN/Creatinine Ratio (10-20) Glucose (70-99) mg/dl Hemoglobin A1c 6.0 H (4.5-5.6) % Osmolality (280-300) mOsm/kg Calcium (8.5-10.1) mg/dl Alkaline Phosphatase 137 H (45-117) U/L Total Protein 6.3 L (6.4-8.2) gm/dl Ur Specific [place] (1.000-1.030) Urine Blood (Negative) Urine RBC (Auto) (0-4) /hpf U Epithel Cells (Auto) (0-5) /lpf Urine Osmolality (500-800) mOsm/kg 08/03/19 08/03/19 08/03/19 Range/Units 14:44 14:44 20:15 WBC (4.8-10.8) K/uL RBC (4.2-5.4) M/uL Hgb (12.0-16.0) g/dL Hct (37-47) % Lymph # (Auto) (1.2-3.4) K/uL PT (9.0-12.0) Seconds POC INR 4.6 H (0.9-1.1) INR (0.9-1.1) APTT (21.0-31.0) Seconds Sodium (136-145) mmol/L Potassium (3.5-5.1) mmol/L Chloride (98-107) mmol/L BUN/Creatinine Ratio (10-20) Glucose (70-99) mg/dl Hemoglobin A1c (4.5-5.6) % Osmolality 265 L (280-300) mOsm/kg Calcium (8.5-10.1) mg/dl Alkaline Phosphatase (45-117) U/L Total Protein (6.4-8.2) gm/dl Ur Specific [place] 1.042 H (1.000-1.030) Urine Blood 1+ H (Negative) Urine RBC (Auto) 5-10 H (0-4) /hpf U Epithel Cells (Auto) 20-30 H (0-5) /lpf Urine Osmolality (500-800) mOsm/kg 08/03/19 08/03/19 08/04/19 Range/Units 20:15 21:20 04:14 WBC 4.63 L (4.8-10.8) K/uL RBC 3.65 L (4.2-5.4) M/uL Hgb 11.0 L (12.0-16.0) g/dL Hct 31.2 L (37-47) % Lymph # (Auto) 1.14 L (1.2-3.4) K/uL PT (9.0-12.0) Seconds POC INR (0.9-1.1) INR (0.9-1.1) APTT (21.0-31.0) Seconds Sodium 124 L (136-145) mmol/L Potassium 3.3 L (3.5-5.1) mmol/L Chloride 89 L (98-107) mmol/L BUN/Creatinine Ratio 9.8 L (10-20) Glucose 112 H (70-99) mg/dl Hemoglobin A1c (4.5-5.6) % Osmolality (280-300) mOsm/kg Calcium (8.5-10.1) mg/dl Alkaline Phosphatase (45-117) U/L Total Protein (6.4-8.2) gm/dl Ur Specific [place] (1.000-1.030) Urine Blood (Negative) Urine RBC (Auto) (0-4) /hpf U Epithel Cells (Auto) (0-5) /lpf Urine Osmolality 378 L (500-800) mOsm/kg 08/04/19 08/04/19 08/04/19 Range/Units 04:14 04:14 10:00 WBC (4.8-10.8) K/uL RBC (4.2-5.4) M/uL Hgb (12.0-16.0) g/dL Hct (37-47) % Lymph # (Auto) (1.2-3.4) K/uL PT 34.2 H (9.0-12.0) Seconds POC INR (0.9-1.1) INR 3.7 H (0.9-1.1) APTT (21.0-31.0) Seconds Sodium 126 L 127 L (136-145) mmol/L Potassium (3.5-5.1) mmol/L Chloride 90 L (98-107) mmol/L BUN/Creatinine Ratio (10-20) Glucose (70-99) mg/dl Hemoglobin A1c (4.5-5.6) % Osmolality (280-300) mOsm/kg Calcium 8.4 L (8.5-10.1) mg/dl Alkaline Phosphatase (45-117) U/L Total Protein (6.4-8.2) gm/dl Ur Specific [place] (1.000-1.030) Urine Blood (Negative) Urine RBC (Auto) (0-4) /hpf U Epithel Cells (Auto) (0-5) /lpf Urine Osmolality (500-800) mOsm/kg Diagnostic Findings CT head- No acute intracranial findings CTA head- No significant vascular abnormalities identified CTA neck- No evidence of hemodynamically significant carotid or vertebral artery stenosis. No evidence of dissection. 70% diameter stenosis of the left subclavian artery origin Left aortic arch with an aberrant right subclavian artery ELISE- 60-65% no ASD
--- NOTE | 2019-08-04 16:05 | Hospitalist Progress Note ---
Date of Service August 04, 2019 Assessment & Plan (1) Vasovagal episode: Related to positional change after episode of diarrhea in the setting of sodium of 121. She is improved today. Telemetry review reveals no evidence of arrhythmias. Neurology has seen her and based on MRI findings and clinical appearance as determined she did not have a stroke. She does have a 70% left subclavian stenosis seen on the head neck CTA that will need to be addressed by vascular surgery as an outpatient. Echo was reviewed and normal. (2) Hyponatremia: IV fluid resuscitation overnight with sodium increasing 121-127. Will take off her fluid restriction and allow her to eat and drink to thirst. Repeat sodium in the morning. Continue to hold lisinopril/HCTZ for now (3) Post-herpetic trigeminal neuralgia: Continue acyclovir, however carbamazepine which was recently increased to 450 mg daily, will be stopped as it can cause dangerous hyponatremia in patients. A review of her outpatient lab work reveals this trend after her being started on this in May 2019. Neurology has now discontinued this medication. She will need to work with them as outpatient for a substitute for persistent trigeminal neuralgia. (4) Follicular lymphoma grade I: S/p 2 cycles of Rituxin and Bendamustine, last chemo 06/06, s/p bilateral parotidectomy -Follows with Dr. Saucedo. Due for PET scan later this week (5) CKD (chronic kidney disease), stage III: Kidney function at baseline -Daily BMP (6) Hypothyroidism: Continue levothyroxine (7) History of DVT (deep vein thrombosis): Status post IVC filter, also on Coumadin with supratherapeutic INR on a dmission. Trend INR daily and hold Coumadin today. (8) DVT prophylaxis: INR therapeutic-no chemoprophylaxis indicated. Full code Disposition-plan for home in a.m. Thea Francisco DO [facility] hospitalist Subjective Doing well overall. Reports a resolution and generalized weakness overnight. Denies nausea, vomiting. She is tolerating p.o. Reports one loose stool today but otherwise no issues. She has some chronic lower abdominal pain which is unchanged but no new abdominal pain present. Review of Systems Review of Systems: All systems reviewed & are unremarkable except as noted in HPI & below Physical Exam Physical Exam: CONSTITUTIONAL: WNWD, vitals as above, generally well- appearing EYES: EOMI bilaterally, PERRL, normal conjunctivae, no scleral icterus ENT: MMM RESPIRATORY: clear to auscultation bilaterally, no crackles, rales or wheezes, normal respiratory effort CARDIOVASCULAR: regular rate and rhythm, S1 and 2 heard without murmurs, gallops or rubs, no JVD, no peripheral edema GASTROINTESTINAL: normal bowel sounds, soft, nontender, nondistended MUSCULOSKELETAL: strength 5/5 throughout, head is normocephalic and atraumatic, neck supple, normal palpation of chest wall without tenderness SKIN: warm and dry NEUROLOGIC: PERRL, EOMI, no facial palsy, no dysarthria. CN 2-12 grossly intact, no sensory deficit, normal cognition, normal speech, no focal deficits. PSYCHIATRIC: alert cooperative and oriented to person, place and time. Results & Data Vital Signs (Past 12 Hours) Vital Signs Temp Pulse Pulse Resp BP Pulse Ox 08/04/19 15:31 36.8 C 66 17 142/71 H 99 08/04/19 15:07 60 08/04/19 11:14 36.7 C 64 20 126/76 95 08/04/19 08:30 36.6 C 67 16 131/80 98 08/04/19 06:20 60 Laboratory Results Short CBC 08/04/19 Range/Units 04:14 WBC 4.63 L (4.8-10.8) K/uL Hgb 11.0 L (12.0-16.0) g/dL Hct 31.2 L (37-47) % Plt Count 202 (130-400) K/uL BMP 08/03/19 08/04/19 08/04/19 21:20 04:14 10:00 Sodium 124 L 126 L 127 L Potassium 3.3 L 3.9 D Chloride 89 L 90 L Carbon Dioxide 30 30 BUN 10 11 Creatinine 1.03 0.96 Glucose 112 H 99 Calcium 9.0 8.4 L Urine 08/03/19 Range/Units 20:15 Urine Color Yellow Urine Appearance Clear (Clear) Urine pH 7.0 (4.5-7.5) Ur Specific [place] 1.042 H (1.000-1.030) Urine Protein Negative (Negative) Urine Glucose (UA) Negative (Negative) Medications Administered Current Inpatient Medications Acetaminophen (Tylenol) 650 mg PO Q4H PRN PRN Reason: Pain or Fever Stop: 09/02/19 17:58 Last Admin: 08/04/19 04:37 Dose: 650 mg Documented by: Acyclovir (Zovirax) 400 mg PO BID [facility] Stop: 09/02/19 20:59 Last Admin: 08/04/19 08:32 Dose: 400 mg Documented by: Benzonatate (Tessalon Perle) 100 mg PO TID PRN PRN Reason: Cough Stop: 09/02/19 17:58 Last Admin: 08/04/19 11:15 Dose: 100 mg Documented by: Cyanocobalamin (Vitamin B-12) 100 mcg PO DAILY [facility] Stop: 09/03/19 08:59 Last Admin: 08/04/19 08:31 Dose: 100 mcg Documented by: Fluticasone Propionate (Flonase) 2 sprays [place]LEY DAILY [facility] Stop: 09/03/19 08:59 Last Admin: 08/04/19 08:33 Dose: 2 sprays Documented by: Gabapentin (Neurontin) 300 mg PO QID [facility] Stop: 09/02/19 18:59 Last Admin: 08/04/19 12:34 Dose: 300 mg Documented by: Gadobutrol (Gadavist 65ml) 9 ml IV ONCE PRN PRN Reason: Interaction Checking Stop: 08/07/19 20:19 Last Admin: 08/03/19 20:21 Dose: 9 ml Documented by: Potassium Chloride 40 meq/ (Sodium Chloride) 1,020 mls @ 60 mls/hr IV .Q17H [facility] Last Infusion: 08/04/19 12:41 Dose: Infused Documented by: Levothyroxine Sodium (Synthroid) [facility] Stop: 09/03/19 06:29 Last Admin: 08/04/19 04:38 Dose: 112 mcg Documented by: Metoprolol Succinate (Toprol Xl) 100 mg PO DAILY [facility] Stop: 09/03/19 08:59 Last Admin: 08/04/19 08:31 Dose: 100 mg Documented by: Miscellaneous Information (Pharmacist Discharge Med Rec Consult) 1 ea N/A UD PRN PRN Reason: Consult Stop: 09/02/19 17:58 Ondansetron HCl (Zofran) 4 mg IV Q6H PRN PRN Reason: Nausea Stop: 09/02/19 17:58 Oxcarbazepine (Trileptal) 150 mg PO BID [facility] Stop: 09/03/19 20:59 Pantoprazole Sodium (Protonix) 40 mg PO DAILY [facility] Stop: 09/03/19 08:59 Last Admin: 08/04/19 08:31 Dose: 40 mg Documented by: Rosuvastatin Calcium (Crestor) 40 mg PO HS [facility] Stop: 09/02/19 20:59 Last Admin: 08/03/19 20:44 Dose: 40 mg Documented by: Venlafaxine HCl (Effexor Extended Release) 75 mg PO DAILY [facility] Stop: 09/03/19 08:59 Last Admin: 08/04/19 08:31 Dose: 75 mg Documented by: Vitamin D (Vitamin D3) 1,000 units PO DAILY [facility] Stop: 09/03/19 08:59 Last Admin: 08/04/19 08:32 Dose: 1,000 units Documented by:
[2019-08-04] MEDS: ROSUVASTATIN CALCIUM 20 MG TAB PO SCH (21:10)
[2019-08-05] MEDS: LEVOTHYROXINE SODIUM 112 MCG TABLET PO SCH (05:49)
[2019-08-05 05:55] LABS: Hematocrit (blood only) 32.8 % (37-47); Hemoglobin 11.4 g/dL (12.0-16.0); Mean Corpuscular Hemoglobin 29.8 pg (25-34); Mean Corpuscular Hgb Conc 34.8 g/dL (32-36); Mean Corpuscular Volume 85.9 fL (80-100); Mean Platelet Volume 8.5 fL (7.4-10.4); Platelet Count 221 K/uL (130-400); RDW Standard Deviation 44.1 fL (36.4-46.3); Red Blood Count 3.82 M/uL (4.2-5.4); White Blood Count 4.71 K/uL (4.8-10.8)
[2019-08-05 06:06] LABS: Prothrombin Time 19.9 Seconds (9.0-12.0)
[2019-08-05 06:27] LABS: BUN Creatinine Ratio 13.8 (10-20); Creatinine Clr Calc Pharmacy 65.2 ml/min; Est GFR (Non-African American) 62.2; Magnesium 2.1 mg/dl (1.8-2.4); Potassium 4.1 mmol/L (3.5-5.1)
[2019-08-05] MEDS: ACETAMINOPHEN 325 MG TAB PO PRN (08:04)
[2019-08-05] MEDS: CYANOCOBALAMIN (VITAMIN B-12) 100 MCG TABLET PO SCH (08:05)
[2019-08-05] MEDS: PANTOprazole 40 MG TAB PO SCH (08:05)
[2019-08-05] MEDS: VENLAFAXINE HCL XR 75 MG CAPXR PO SCH (08:05)
[2019-08-05] MEDS: METOPROLOL SUCC 50MG EXT REL TAB PO SCH (08:05)
[2019-08-05] MEDS: GABAPENTIN 300 MG CAP PO SCH ×2 (08:05→12:28)
[2019-08-05] MEDS: ACYCLOVIR 200 MG CAP PO SCH (08:06)
[2019-08-05] MEDS: FLUTICASONE PROPIONATE NA SPR 16 GM BTL NAE SCH (08:06)
[2019-08-05] MEDS: CHOLECALCIFEROL 1,000 UNITS TAB PO SCH (08:19)
[2019-08-05] MEDS: BENZONATATE 100 MG CAPSULE PO PRN (10:28)
--- NOTE | 2019-08-05 12:06 | Discharge Summary ---
Date of Service August 05, 2019 Admission HPI Per Admitting Provider This is a 73yo F with a PMH of follicular lymphoma (last chemo in May 2018), post-herpetic trigeminal neuralgia, h/o DVT with IVC filter on coumadin, HTN and HLD who presents after pre-syncopal episode earlier this afternoon. Patient woke up feeling generally weak but otherwise in normal state of health. Was out to lunch this afternoon around 1300 and had an episode of diarrhea, followed by lightheadedness, sweating and a fall. Denies loss of consciousness or head trauma. Was helped off the ground by a friend. Continued to feel generally weak and was brought to ED for further evaluation by ambulance. Stroke alert was called and tele-stroke recommended further work-up with brain MRI. INR is supratherapeutic at 4.9 so tpa was contraindicated. Currently feeling fatigued and generally weak. Endorsing tingling feeling in left cheek. Denies confusion, difficulty speaking or swallowing or focal weakness or sensory deficits. Has heightened sensation above left eyebrow as a result of postherpetic trigeminal neuralgia for which she follows neurology. Follows with Dr. Saucedo of [facility] for follicular lymphoma with most recent chemo tx in May 2018. Also s/p removal of bilateral parotid glands. Due for PET scan later this week. Denies fever, chills, headache, lightheadedness, visual changes, chest pain, palpitations, shortness of breath, abdominal pain, nausea, vomiting, dysuria or constipation. Admission Exam Per Admitting Provider General Appearance: WD/WN, vitals as above, NAD, sitting up in bed, pleasant, conversing easily Head: normocephalic, atraumatic Eyes: normal inspection, PERRL, conjunctivae normal, anicteric sclerae ENT: external ear and nose normal, oropharynx normal Neck: trachea midline, no thyromegaly normal visual inspection Respiratory: normal respiratory effort, lungs clear to auscultation, no wheeze, rales, rhonchi. Normal insp/exp effort, no accessory muscle use Cardiovascular: regular rate, rhythm, no murmur, normal peripheral pulses. Vessels: no JVD or carotid bruit Chest: normal inspection of chest Abdomen/GI: normal bowel sounds, soft, nontender, no hepatosplenomegaly Extremities/Musculoskelatal: no cyanosis or clubbing, extremities motor strength 5/5 Neurologic: PERRL, EOMI, accommodation nl, no dysarthria. + Left sided facial droop, R facial contracture (chronic), CN's II-XI intact bilaterally, + BUE essential tremor, moves all extremities Psychiatric: A+Ox3, euthymic affect Skin: no rashes, normal color, warm/dry Principal Diagnosis Hyponatremia Vasovagal presyncope Discharge Data Allergies Allergy/AdvReac Type Severity Reaction Status Date / Time No Known Allergies Allergy Unverified 08/03/19 14:25 Consultations 08/03/19 15:15 ED Decision to Admit Stat 08/03/19 17:59 Consult Case Management - Discharge Planning Routine 08/04/19 08:00 Consult Neurology Routine Ordered Studies 08/03/19 14:23 CT angio head w con Stat CT angio neck with con Stat CT head/brain wo con Stat 08/03/19 17:59 MR brain wo/w con Routine Hospital Course (1) Vasovagal episode: Related to positional change after episode of diarrhea in the setting of sodium of 121. She is improved today. Telemetry review revealed no evidence of arrhythmias throughout her hospitalization. Neurology has seen her and based on MRI findings and clinical appearance as determined she did not have a stroke. She does have a 70% left subclavian stenosis seen on the head neck CTA that will need to be addressed by vascular surgery as an outpatient. Echo was reviewed and normal. (2) Hyponatremia: IV fluid resuscitation with sodium increasing 121-127. Fluids were stopped and fluid restriction was lifted. Na was 130 the following morning. She was feeling well. Expected rise now that she is off Trileptal, and has been counseled to avoid taking lisinopril/HCTZ with her other BP medications, including losartan/HCTZ (3) Post-herpetic trigeminal neuralgia: Continue acyclovir which she was put on at the time of chemotherapy and has continued. Trileptal which was recently increased to 450 mg daily, will be stopped as it can cause dangerous hyponatremia in patients and was thought to contribute to her hyponatremia and event above. A review of her outpatient lab work reveals this trend after her being started on this in May 2019. This was about the same time her blood pressure medications were switched. Of note, she did admit to me that she was still taking her old BP medication in addition to the newly prescribed medications, which is also part of the issue as there is redundancy here. Neurology has now discontinued this medication. She will need to work with them as outpatient for a substitute for persistent trigeminal neuralgia. (4) Follicular lymphoma grade I: S/p 2 cycles of Rituxin and Bendamustine, last chemo 06/06, s/p bilateral parotidectomy -Follows with Dr. Saucedo. Due for PET scan later this week AT time of discharge a face to face examination was performed revealing a hemodynamically stable and afebrile patient in no acute distress. She was ambulating and mentating at baseline and was tolerating food without issue. Skin was warm and dry, she was WNWD. She was neurologically intact without deficits. Lungs were clear to auscultation bilaterally. S1/2 was heard without evidence of murmurs, gallops or rubs. Abdomen was soft, nontender and nondistended. She was sent home in stable condition with close primary care follow-up recommended and vascular surgery consult recommended to address her PAD. Total Time Total Time Spent Total Time Spent (In Minutes): 60 Discharge Plan Discharge Items Patient Disposition: Home - Self-Care Reason For Visit: STROKE WORK UP,HYPONATREMIA Discharge Diagnosis: Hyponatremia Vasovagal presyncope Condition on Discharge: Good Activity: Resume your previous activity Non-emergency contact: Primary Care Provider Call non-emergency contact if: you have any medication questions, your symptoms worsen, your pain is not controlled, your pain is worsening, your pain is unu sual for you, your pain is concerning for you and you have a fever Follow-up/Referrals: Wellington Thibodeaux MD [Physician] - Diet: Heart Healthy Addtl Attending Provider Instructions: Please take all medications as instructed on discharge list below. You are being given a prescription for non-fasting labwork to get early next week. This will monitor your sodium and electrolytes. Please review results with your primary care provider. Please follow-up with your primary care provider within one week of discharge for a repeat BP check, and to review nonfasting labwork. Date & Time 08/11/2019 2:00 PM Provider Wellington Thibodeaux III, MD Department [facility] It was a pleasure taking care of you! Please call if you have any questions or problems. You can reach a [facility] hospitalist on duty at [facility] 24 hours a day by calling [phone]. Take care of yourself. Thea Francisco DO [facility] Hospitalist Pending Studies at Discharge: No Stand-Alone Forms: My [facility] Medications and DC Order Prescriptions: New losartan 100 mg tablet 100 mg PO DAILY Qty: 30 RF: 1 Continued venlafaxine 75 mg capsule,extended release 24hr 75 mg PO DAILY RF: 0 metoprolol succinate 100 mg tablet extended release 24 hr 100 mg PO DAILY RF: 0 pantoprazole 40 mg tablet,delayed release (DR/EC) 40 mg PO DAILY RF: 0 warfarin 5 mg tablet 7.5 mg PO MOFR@1600 RF: 0 levothyroxine 112 mcg tablet 112 mcg PO QAM RF: 0 rosuvastatin 40 mg tablet 40 mg PO HS RF: 0 cyanocobalamin (vitamin B-12) 100 mcg Tablet 100 mcg PO DAILY RF: 0 benzonatate 100 mg capsule 100 mg PO TID PRN (Reason: Cough) RF: 0 warfarin 5 mg Tablet 5 mg PO SUTUWETHSA@1600 RF: 0 gabapentin 300 mg capsule 300 mg PO QID RF: 0 acyclovir 200 mg capsule 400 mg PO BID RF: 0 fluticasone propionate [Flonase Allergy Relief] 50 mcg/actuation [place],Suspension 2 spray INTRANASAL DAILY RF: 0 cholecalciferol (vitamin D3) 1,000 unit Capsule 1,000 unit PO DAILY RF: 0 Discontinued oxcarbazepine 150 mg tablet 300 mg PO DAILY RF: 0 losartan-hydrochlorothiazide 100-25 mg tablet 1 tab PO DAILY RF: 0 oxcarbazepine 150 mg tablet 150 mg PO HS RF: 0 lisinopril-hydrochlorothiazide 20-25 mg Tablet 1 tab PO DAILY RF: 0 Discharge Orders: Discharge Order (Routine); Ordered 08/05/19 Ordered By: Thea Tyler/Other Patient Handouts: Diabetes Healthy Meals, Diabetes Exercise Benefits, Diabetes Manage A1C Test Admission Data Admit Date/Time: 08/03/19 17:14 Attending Provider: Thea Francisco Admit Provider: Wellington Martel Primary Care Provider: Augustina Matthews Other Providers: Wellington Martel ; Carlos Abarca Other Interventions: Discharge Summary Assessment (RN) Last Done: 08/05/19 12:35 DC Date/Time DO NOT enter until pt leaves facility: 08/05/19 14:00
== END 2019-08-05 14:00 | disposition home or self-care (01) | DRG 644 ==
LOC: ED 13:44 → 2S 17:14 → SUATTDRO 17:14 → 2S 17:42 → 4W 08-04 18:36

== ENCOUNTER 2021-07-03 11:52 | Inpatient (IN) ==
--- NOTE | 2021-07-03 12:15 | Emergency Department Note ---
Impression & Plan Pancytopenia, Follicular lymphoma grade I ED Provider Note NAME: KELLIE CHRISTOPHER AGE: 75 SEX: F : 1945 ARRIVES VIA: Walk-In INFORMANT: Patient, ED PROVIDER(S): Melvin May MD Chief Complaint: Low hemoglobin, doctor referral HPI: Patient does present at the behest of her cancer physician Dr. Saucedo who stated that the patient had a low hemoglobin is referred here for further evaluation treatment. The patient does have a history of lymphoma for which she has received radiation treatments but no chemo. The patient does take Coumadin and last took it last evening. The patient denies any dark stools or bright red blood per rectum. Patient denies any nausea vomiting or hematemesis. Patient has received 1 dose of Covid vaccine. Patient denies any chest pains or shortness of breath. Patient take other blood thinners other than the Coumadin. Patient is only had mild abdominal discomfort at the site of her radiation treatment which is in the left lower quadrant. ROS: See HPI for pertinent positives and negatives. A total of 10 systems were reviewed and otherwise negative. Past medical history: See below Surgical history: See below Social history: See below Physical Exam: GENERAL: NAD, wearing a mask, non-toxic. EYE EXAM: Normal conjunctiva. PERRL, no anisocoria and EOM's grossly intact w/o pain. NECK: Supple, no nuchal rigidity, no adenopathy, non-tender. No signs of meningi smus. LUNGS: Clear to auscultation. Normal chest wall mechanics. HEART: NSR, no MRG. ABDOMEN: Abdomen soft, non-tender, normo-active bowel sounds, no masses, no rebound or guarding. BACK: No CVA TTP. SKIN: No rashes and no bruising. Rectal: No obvious anal fissures or bleeding hemorrhoids, no bright red blood per rectum or melenic stool, heme-negative. UPPER EXTREMITIES: Upper extremities are grossly normal. LOWER EXTREMITIES: Grossly normal, no edema. NEURO EXAM: A&O x3, cranial nerves II-XII grossly intact, normal speech, moves all 4 extremities on command w/o issue. Differential diagnoses: Diverticulosis, AVM, coagulopathy, colitis, inflammatory bowel disease, malignancy, Orly-[place] tear, esophagitis, peptic ulcer disease, variceal bleed, gastritis, epistaxis, fissure, hemorrhoids, as well as other pathologies. Course: Patient was seen and evaluated the bedside. Full history physical exam was performed. EKG interpreted by me Normal sinus rhythm, rate of 88, wide QRS, right bundle branch block pattern. Imaging Studies: See Below Cardiac monitoring: An order was placed for continuous cardiac monitoring. The monitor shows a rate of 95 with sinus rhythm. MDM: Patient did present concern for anemia. Patient did have blood work completed along with type and screen was consented for blood in the event that she required it. The patient does have pancytopenia. Patient's hemoglobin is 6.4 with platelet count of 50. Patient was ordered to seize. Patient was heme could have on rectal exam. I did speak with the on-call hospitalist BELINDA Bailey. The patient was admitted by Dr. Santos. 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 Critical Care: I have personally spent 57 minutes of critical care time in direct management of this patient. This includes bedside care, interpretation of diagnostic studies, and testing, discussion with consultants, patient, and family members, and other require inpatient management activities. This 57 minutes is in excess of all separately billable procedures. Past Med/Surg History Medical History Asthma CKD (chronic kidney disease), stage III COPD (chronic obstructive pulmonary disease) Diverticulitis Esophageal reflux Essential tremor Gastroparesis History of DVT (deep vein thrombosis) HLD (hyperlipidemia) HTN (hypertension) Hyponatremia Hypothyroidism Neutropenia Pancreatitis Post-herpetic trigeminal neuralgia Thoracic aortic aneurysm without rupture Surgical History H/O parotidectomy (11/2003) H/O: hysterectomy History of bone marrow biopsy (10/2011) History of colonoscopy (08/15/08) History of colonoscopy (01/11/14) History of colonoscopy (02/16/19) History of cystoscopy (06/02/12) History of ERCP (06/21/08) History of esophagogastroduodenoscopy (EGD) (03/06/16) History of excision of lesion (04/02/21) Right Superficial Parotid S/P cholecystectomy S/P insertion of IVC (inferior vena caval) filter (06/26/12) Jordon Filter Placement Right Groin Dr. Srivastava at [facility] Status post excisional biopsy (07/07/17) Left Inguinal Lymph Node Dr. Anderson at [facility] Status post fine needle aspiration (04/05/21) Left External Iliac Lymph Node under USG Dr. Coreas at [facility] Status post fine needle aspiration (02/08/19) Right Parotid Gland Lesion Family History Grandmother (Maternal) , Passed Age 52 due to Colon Cancer No problems noted. Father , Passed Age 72 due to Lung Cancer, occupation related No problems noted. Mother , Passed Age 84 of unknown cancer No problems noted. Brother , Passed Age 70 of unknown cancer No problems noted. Brother No problems noted. Daughter CLL (chronic lymphocytic leukemia) Son No problems noted. Son No problems noted. Son No problems noted. Aunt , Passed Age 70 due to Breast Cancer No problems noted. Other Cancer Hypertension Social History Smoking Status: Never smoker Hx Alcohol Use: No Hx Substance Use: No Preferred Language: Irish Communication Ability: Effective Visual Impairment: Limited Hearing Ability: Normal Documentation Spec Required: No Beliefs That Will Affect Care: None marital status: / Current Living Situation: Alone current occupational status: retired current occupation: Retired [employer] How many Children do You have: 4 Other Information That Helps Us Care for You: No Feels Safe at Home: Yes Safety Concerns: Feels Safe At This Time Childhood Exposure to Second-Hand Smoke: Yes (father smoked in home) caffeine: Yes (cola daily) during the past year weight has: remained stable Dental Care, Regularly: Yes Physical Activity Frequency: Does not Exercise Assistive Devices: Cane and Glasses Allergies Allergies Allergy/AdvReac Type Severity Reaction Status Date / Time No Known Allergies Allergy Verified 07/03/21 13:44 Home Meds Home Medications Medication Instructions Recorded Confirmed fluticasone propionate 50 2 spray INTRANASAL QAM 08/03/19 07/03/21 mcg/actuation nasal spray,suspension (Flonase Allergy Relief) gabapentin 300 mg capsule 300 mg PO QID 08/03/19 07/03/21 (Neurontin) levothyroxine 112 mcg tablet 112 mcg PO QAM 08/03/19 07/03/21 (Synthroid) metoprolol succinate 100 mg 100 mg PO DAILY 08/03/19 07/03/21 tablet,extended release 24 hr (Toprol XL) pantoprazole 40 mg tablet,delayed 40 mg PO QAM 08/03/19 07/03/21 release (Protonix) rosuvastatin 40 mg tablet (Crestor) 40 mg PO HS 08/03/19 07/03/21 venlafaxine 75 mg capsule,extended 75 mg PO HS 08/03/19 07/03/21 release 24 hr (Effexor XR) diclofenac sodium 1 % topical gel 4 g TOPICAL QID PRN 10/21/19 07/03/21 (Voltaren Arthritis Pain) warfarin 5 mg tablet 5 mg PO MOFR 10/21/19 07/03/21 fluticasone furoate 100 1 inh INHALATION QAM PRN 05/02/21 07/03/21 mcg-vilanterol 25 mcg/dose inhalation powder (Breo Ellipta) losartan 100 mg tablet (Cozaar) 100 mg PO DAILY tab 05/21/21 07/03/21 hydrochlorothiazide 12.5 mg capsule 12.5 mg PO DAILY PRN 07/03/21 07/03/21 warfarin 5 mg tablet 2.5 mg PO SUTUWETHSA 07/03/21 07/03/21 Results & Data (ED) Vital Signs Vital Signs - 24 hr 07/03/21 11:58 07/03/21 12:07 Temperature 36.4 C L Temperature Source Temporal Artery Scan Pulse Rate 97 H 93 H Respiratory Rate 20 19 Respiratory Effort / Characteristics Non-Labored Spontaneous Respiratory Depth Normal Respiratory Pattern Regular Blood Pressure 134/68 133/87 Blood Pressure Mean 90 102 Blood Pressure Position Sitting Pulse Oximetry 97 Oxygen Delivery Method Room Air Sepsis Recent Fever Within 48 Hours No Sepsis New/Unexplained Change in Mental Status N/A Sepsis Action Taken by Nursing No Action Required Home Medications Current Medication List: was personally reviewed by me Laboratory Data Attestation: I reviewed the patient's lab results. Result diagrams: 07/03/21 12:22 07/03/21 12:22 Lab Results 09/14/21 09/14/21 09/14/21 Range/Units 12:22 12:22 12:22 WBC 1.32 L (4.8-10.8) K/uL RBC 2.18 L (4.2-5.4) M/uL Hgb 6.4 L* (12.0-16.0) g/dL Hct 19.1 L* (37-47) % MCV 87.6 (80-100) fL MCH 29.4 (25-34) pg MCHC 33.5 (32-36) g/dL RDW Std Deviation 54.4 H (36.4-46.3) fL RDW Coeff of Rosamaria 17.0 H (11.5-14.5) % Plt Count 50 L (130-400) K/uL MPV 9.8 (7.4-10.4) fL Reticulocyte % (Auto) (0.5-2.0) % Reticulocyte # (0.02-0.10) 10^6/uL Absolute Nucleated RBC 0.02 H (0-0) K/uL Nucleated RBC % (auto) 1.7 % Neutrophils % (Manual) 50.4 % Lymphocytes % (Manual) 34.5 % Monocytes % (Manual) 8.0 % Basophils % (Manual) 3.5 % Myelocytes % (Man) 0.9 % Blast Cells % (Manual) 2.7 % Neutrophils # (Manual) 0.67 L (1.4-6.5) K/uL Total Absolute Neuts 0.67 L* (1.4-6.5) K/uL Lymphocytes # (Manual) 0.46 L (1.2-3.4) K/uL Total Abs Lymphocytes 0.46 L (1.2-3.4) K/uL Monocytes # (Manual) 0.11 (0.11-0.59) K/uL Basophils # (Manual) 0.05 (0-0.2) K/uL Myelocytes # (Manual) 0.01 H (0-0) K/uL Blast Cells # (Man) 0.04 H (0-0) K/uL Blood Smear Review Toxic Granulation 1+ Toxic Vacuolation 1+ Dohle Bodies 1+ Platelet Estimate Decreased L (Normal) PT 12.6 H (9.0-12.0) Seconds INR 1.3 H (0.9-1.1) APTT 23.6 (21.0-31.0) Seconds PTT Ratio 0.9 Sodium (136-145) mmol/L Potassium (3.5-5.1) mmol/L Chloride (98-107) mmol/L Carbon Dioxide (21-32) mmol/L Anion Gap (3-11) BUN (7-18) mg/dl Creatinine (0.6-1.2) mg/dl Est Cr Clr Drug Dosing ml/min Est GFR ( Amer) ml/min Est GFR (Non-Af Amer) ml/min BUN/Creatinine Ratio (10-20) Glucose (70-99) mg/dl Calcium (8.5-10.1) mg/dl Magnesium (1.8-2.4) mg/dl Total Bilirubin (0.2-1) mg/dl AST (15-37) U/L ALT (12-78) U/L Alkaline Phosphatase (45-117) U/L Total Protein (6.4-8.2) gm/dl Albumin (3.4-5.0) gm/dl Globulin (2.5-4.0) gm/dl Albumin/Globulin Ratio (0.9-2) Procalcitonin (0-0.5) ng/ml COVID-19 Eval Order SARS-CoV-2 (PCR) (Negative) Blood Type A Positive Antibody Screen NEGATIVE Crossmatch See Detail 07/03/21 07/03/21 07/03/21 Range/Units 12:22 12:22 12:22 WBC (4.8-10.8) K/uL RBC (4.2-5.4) M/uL Hgb (12.0-16.0) g/dL Hct (37-47) % MCV (80-100) fL MCH (25-34) pg MCHC (32-36) g/dL RDW Std Deviation (36.4-46.3) fL RDW Coeff of Rosamaria (11.5-14.5) % Plt Count (130-400) K/uL MPV (7.4-10.4) fL Reticulocyte % (Auto) 1.4 (0.5-2.0) % Reticulocyte # 0.03 (0.02-0.10) 10^6/uL Absolute Nucleated RBC (0-0) K/uL Nucleated RBC % (auto) % Neutrophils % (Manual) % Lymphocytes % (Manual) % Monocytes % (Manual) % Basophils % (Manual) % Myelocytes % (Man) % Blast Cells % (Manual) % Neutrophils # (Manual) (1.4-6.5) K/uL Total Absolute Neuts (1.4-6.5) K/uL Lymphocytes # (Manual) (1.2-3.4) K/uL Total Abs Lymphocytes (1.2-3.4) K/uL Monocytes # (Manual) (0.11-0.59) K/uL Basophils # (Manual) (0-0.2) K/uL Myelocytes # (Manual) (0-0) K/uL Blast Cells # (Man) (0-0) K/uL Blood Smear Review Toxic Granulation Toxic Vacuolation Dohle Bodies Platelet Estimate (Normal) PT (9.0-12.0) Seconds INR (0.9-1.1) APTT (21.0-31.0) Seconds PTT Ratio Sodium 138 (136-145) mmol/L Potassium 3.3 L (3.5-5.1) mmol/L Chloride 104 (98-107) mmol/L Carbon Dioxide 26 (21-32) mmol/L Anion Gap 9.0 (3-11) BUN 16 (7-18) mg/dl Creatinine 1.17 (0.6-1.2) mg/dl Est Cr Clr Drug Dosing 48.4 ml/min Est GFR ( Amer) 52.4 ml/min Est GFR (Non-Af Amer) 45.2 ml/min BUN/Creatinine Ratio 13.6 (10-20) Glucose 122 H (70-99) mg/dl Calcium 8.8 (8.5-10.1) mg/dl Magnesium (1.8-2.4) mg/dl Total Bilirubin 1.0 (0.2-1) mg/dl AST 9 L (15-37) U/L ALT 15 (12-78) U/L Alkaline Phosphatase 80 (45-117) U/L Total Protein 6.7 (6.4-8.2) gm/dl Albumin 3.8 (3.4-5.0) gm/dl Globulin 2.9 (2.5-4.0) gm/dl Albumin/Globulin Ratio 1.3 (0.9-2) Procalcitonin 0.12 (0-0.5) ng/ml COVID-19 Eval Order SARS-CoV-2 (PCR) (Negative) Blood Type Antibody Screen Crossmatch 07/03/21 07/03/21 07/03/21 Range/Units 12:22 12:45 12:45 WBC (4.8-10.8) K/uL RBC (4.2-5.4) M/uL Hgb (12.0-16.0) g/dL Hct (37-47) % MCV (80-100) fL MCH (25-34) pg MCHC (32-36) g/dL RDW Std Deviation (36.4-46.3) fL RDW Coeff of Rosamaria (11.5-14.5) % Plt Count (130-400) K/uL MPV (7.4-10.4) fL Reticulocyte % (Auto) (0.5-2.0) % Reticulocyte # (0.02-0.10) 10^6/uL Absolute Nucleated RBC (0-0) K/uL Nucleated RBC % (auto) % Neutrophils % (Manual) % Lymphocytes % (Manual) % Monocytes % (Manual) % Basophils % (Manual) % Myelocytes % (Man) % Blast Cells % (Manual) % Neutrophils # (Manual) (1.4-6.5) K/uL Total Absolute Neuts (1.4-6.5) K/uL Lymphocytes # (Manual) (1.2-3.4) K/uL Total Abs Lymphocytes (1.2-3.4) K/uL Monocytes # (Manual) (0.11-0.59) K/uL Basophils # (Manual) (0-0.2) K/uL Myelocytes # (Manual) (0-0) K/uL Blast Cells # (Man) (0-0) K/uL Blood Smear Review Toxic Granulation Toxic Vacuolation Dohle Bodies Platelet Estimate (Normal) PT (9.0-12.0) Seconds INR (0.9-1.1) APTT (21.0-31.0) Seconds PTT Ratio Sodium (136-145) mmol/L Potassium (3.5-5.1) mmol/L Chloride (98-107) mmol/L Carbon Dioxide (21-32) mmol/L Anion Gap (3-11) BUN (7-18) mg/dl Creatinine (0.6-1.2) mg/dl Est Cr Clr Drug Dosing ml/min Est GFR ( Amer) ml/min Est GFR (Non-Af Amer) ml/min BUN/Creatinine Ratio (10-20) Glucose (70-99) mg/dl Calcium (8.5-10.1) mg/dl Magnesium 2.1 (1.8-2.4) mg/dl Total Bilirubin (0.2-1) mg/dl AST (15-37) U/L ALT (12-78) U/L Alkaline Phosphatase (45-117) U/L Total Protein (6.4-8.2) gm/dl Albumin (3.4-5.0) gm/dl Globulin (2.5-4.0) gm/dl Albumin/Globulin Ratio (0.9-2) Procalcitonin (0-0.5) ng/ml COVID-19 Eval Order Covid19 at [facility] SARS-CoV-2 (PCR) NEGATIVE (Negative) Blood Type Antibody Screen Crossmatch Administered Medications Discontinued Medications Ioversol (Optiray 320 100ml) 90 ml IV ONCE ONE Stop: 07/03/21 17:19 Last Admin: 07/03/21 17:19 Dose: 90 ml Documented by: [id number] Potassium Chloride (Potassium Chloride Crtab 20 Meq Tabcr) 40 meq PO ONE STA Stop: 07/03/21 14:55 Last Admin: 07/03/21 15:55 Dose: 40 meq Documented by: [id number] Discharge Plan Visit Data Chief Complaint: Weakness Stated Complaint: SENT BY [facility], LOW HEMOGLOBIN,WEAK ED Provider: Melvin May Discharge Problem: Pancytopenia, Follicular lymphoma grade I Patient Disposition: Admitted As Inpatient Discharge Instructions Interventions: ED Discharge Assessment Last Done: 07/03/21 17:46
[2021-07-03 12:39] LABS: INR 1.3 (0.9-1.1); Partial Thromboplastin Ratio 0.9; Partial Thromboplastin Time 23.6 Seconds (21.0-31.0); Prothrombin Time 12.6 Seconds (9.0-12.0)
[2021-07-03 12:50] LABS: Albumin Level 3.8 gm/dl (3.4-5.0); BUN Creatinine Ratio 13.6 (10-20); Calcium 8.8 mg/dl (8.5-10.1); Creatinine Clr Calc Pharmacy 48.4 ml/min; Est GFR (African American) 52.4 ml/min; Est GFR (Non-African American) 45.2 ml/min; Potassium 3.3 mmol/L (3.5-5.1)
[2021-07-03 12:53] LABS: Albumin Globulin Ratio 1.3 (0.9-2); Globulin 2.9 gm/dl (2.5-4.0); Total Protein 6.7 gm/dl (6.4-8.2)
[2021-07-03 13:12] LABS: Hematocrit (blood only) 19.1 % (37-47); Hemoglobin 6.4 g/dL (12.0-16.0); Mean Corpuscular Hemoglobin 29.4 pg (25-34); Mean Corpuscular Hgb Conc 33.5 g/dL (32-36); Mean Corpuscular Volume 87.6 fL (80-100); Mean Platelet Volume 9.8 fL (7.4-10.4); Nucleated RBC # (auto) 0.02 K/uL (0-0); Nucleated RBC % (auto) 1.7 %; Platelet Count 50 K/uL (130-400); RDW Standard Deviation 54.4 fL (36.4-46.3); Red Blood Count 2.18 M/uL (4.2-5.4); White Blood Count 1.32 K/uL (4.8-10.8)
[2021-07-03 13:13] LABS: Dohle Bodies 1+; Platelet Estimate Decreased (Normal); Toxic Granulation 1+; Toxic Vacuolation 1+
[2021-07-03 13:14] LABS: ALC (manual) 0.46 K/uL (1.2-3.4); ANC (manual) 0.67 K/uL (1.4-6.5); Basophils # (manual) 0.05 K/uL (0-0.2); Basophils % (manual) 3.5 %; Blast # (manual) 0.04 K/uL (0-0); Blast Cells % (manual) 2.7 %; Lymphocytes # (manual) 0.46 K/uL (1.2-3.4); Lymphocytes % (manual) 34.5 %; Monocytes # (manual) 0.11 K/uL (0.11-0.59); Myelocytes # (manual) 0.01 K/uL (0-0); Myelocytes % (manual) 0.9 %; Neutrophils # (manual) 0.67 K/uL (1.4-6.5); Neutrophils % (manual) 50.4 %
[2021-07-03] MEDS ORDERED: SODIUM CHLORIDE 0.9% 250 ML IV PRN ×3 (13:22→18:22)
[2021-07-03] MEDS ORDERED: SODIUM CHLORIDE 0.9% 1000ML 1,000 ML IV STA (14:54)
[2021-07-03] MEDS ORDERED: POTASSIUM CHLORIDE CRTAB 20 MEQ TABCR PO STA (14:54)
[2021-07-03 15:10] LABS: Reticulocyte % 1.4 % (0.5-2.0); Reticulocytes # 0.03 10^6/uL (0.02-0.10)
--- NOTE | 2021-07-03 15:39 | History & Physical Report ---
Date of Service July 03, 2021 Assessment & Plan (1) Pancytopenia: (2) Follicular lymphoma grade I: Plan: -Admit to [facility] -Patient presenting by referral of outpatient oncology office for evaluation of pancytopenia -History of follicular lymphoma, dating back to 2003, s/p left parotidectomy, chemotherapy, radiation. Recently had recurrence of disease in the left pelvis and completed radiation therapy on 06/08/2021 -In the ED, labs show WBC 1.3K, Hgb 6.4, platelet 50 K, ANC 670 -no signs of bleeding or infection -Transfuse 2 unit PRBC -Check reticulocyte count and FOBT -Discussed with patient's oncologist, Dr. Saucedo, who recommends CT chest/ABD/pelvis (3) History of DVT (deep vein thrombosis): Plan: -S/p IVC filter, also anticoagulated Coumadin -INR 1.3 -Patient believes last DVT was ~ 2007 -Given new onset pancytopenia, oncology recommends holding Coumadin for now (4) HTN (hypertension): Plan: -Patient self stopped metoprolol, losartan, HCTZ a couple of months ago after monitoring her BP at home. Reports BP has been well controlled -BP acceptable, continue to hold antihypertensives (5) CKD (chronic kidney disease), stage III: Plan: -Baseline creatinine ~ 1.2 -Creatinine 1.1 today -Monitor renal functions (6) Hypothyroidism: Plan: -Continue levothyroxine (7) DVT prophylaxis: Plan: -SCDs due to anemia/thrombocytopenia History of Present Illness Chief Complaint: Anemia Primary Care Provider: Flor Rubio, 75-year-old female with PMH hypothyroidism, thoracic aortic aneurysm, HTN, GERD, CKD stage III, follicular lymphoma s/p left parotidectomy, chemo and radiation, history of DVT anticoagulated on Coumadin, and other problems listed below who presents to the ED by referral of outpatient oncologist for evaluation of pancytopenia. Patient's initial lymphoma diagnosis dates back to 2003. 02/2021 PET/CT showed progression of disease in left pelvis and patient completed radiation therapy on 06/08/2021. Plan was to start Rituxan. Patient had routine labs as an outpatient today that showed a hemoglobin of 6.3. She was then referred to the ED for further evaluation. Patient reports that for the past couple of weeks, she has felt very fatigued and weak. She has had lightheadedness and dizziness however no syncopal event. Reports LLQ abdominal pain for the past couple weeks as well. No fevers or chills. Reports a poor a ppetite however no nausea, vomiting, diarrhea. She denies urinary symptoms. In the ED, labs show WBC 1.3K, Hgb 6.4, platelet 50 K, ANC 670. Patient was typed and crossed for 2 units PRBC. She is hemodynamically stable. There are no obvious signs of bleeding. Allergies Allergy/AdvReac Type Severity Reaction Status Date / Time No Known Allergies Allergy Verified 07/03/21 13:44 Home Medications Medication Instructions Recorded Confirmed Type fluticasone propionate 50 2 spray INTRANASAL QAM 08/03/19 07/03/21 History mcg/actuation nasal spray,suspension (Flonase Allergy Relief) gabapentin 300 mg capsule 300 mg PO QID 08/03/19 07/03/21 History (Neurontin) levothyroxine 112 mcg tablet 112 mcg PO QAM 08/03/19 07/03/21 History (Synthroid) metoprolol succinate 100 mg 100 mg PO DAILY 08/03/19 07/03/21 History tablet,extended release 24 hr (Toprol XL) pantoprazole 40 mg tablet,delayed 40 mg PO QAM 08/03/19 07/03/21 History release (Protonix) rosuvastatin 40 mg tablet (Crestor) 40 mg PO HS 08/03/19 07/03/21 History venlafaxine 75 mg capsule,extended 75 mg PO HS 08/03/19 07/03/21 History release 24 hr (Effexor XR) diclofenac sodium 1 % topical gel 4 g TOPICAL QID PRN 10/21/19 07/03/21 History (Voltaren Arthritis Pain) warfarin 5 mg tablet 5 mg PO MOFR 10/21/19 07/03/21 History fluticasone furoate 100 1 inh INHALATION QAM PRN 05/02/21 07/03/21 History mcg-vilanterol 25 mcg/dose inhalation powder (Breo Ellipta) losartan 100 mg tablet (Cozaar) 100 mg PO DAILY tab 05/21/21 07/03/21 History hydrochlorothiazide 12.5 mg capsule 12.5 mg PO DAILY PRN 07/03/21 07/03/21 His tory warfarin 5 mg tablet 2.5 mg PO SUTUWETHSA 07/03/21 07/03/21 History Past Med/Surg History Medical History Asthma CKD (chronic kidney disease), stage III COPD (chronic obstructive pulmonary disease) Diverticulitis Esophageal reflux Essential tremor Gastroparesis History of DVT (deep vein thrombosis) HLD (hyperlipidemia) HTN (hypertension) Hyponatremia Hypothyroidism Neutropenia Pancreatitis Post-herpetic trigeminal neuralgia Thoracic aortic aneurysm without rupture Surgical History H/O parotidectomy (11/2003) H/O: hysterectomy History of bone marrow biopsy (10/2011) History of colonoscopy (08/15/08) History of colonoscopy (01/11/14) History of colonoscopy (02/16/19) History of cystoscopy (06/02/12) History of ERCP (06/21/08) History of esophagogastroduodenoscopy (EGD) (03/06/16) History of excision of lesion (04/02/21) Right Superficial Parotid S/P cholecystectomy S/P insertion of IVC (inferior vena caval) filter (06/26/12) [place] Filter Placement Right Groin Dr. Srivastava at [facility] Status post excisional biopsy (07/07/17) Left Inguinal Lymph Node Dr. Anderson at [facility] Status post fine needle aspiration (04/05/21) Left External Iliac Lymph Node under USG Dr. Coreas at [facility] Status post fine needle aspiration (02/08/19) Right Parotid Gland Lesion Family History Grandmother (Maternal) , Passed Age 52 due to Colon Cancer No problems noted. Father , Passed Age 72 due to Lung Cancer, occupation related No problems noted. Mother , Passed Age 84 of unknown cancer No problems noted. Brother , Passed Age 70 of unknown cancer No problems noted. Brother No problems noted. Daughter CLL (chronic lymphocytic leukemia) Son No problems noted. Son No problems noted. Son No problems noted. Aunt , Passed Age 70 due to Breast Cancer No problems noted. 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 How many Children do You have: 4 Feels Safe at Home: Yes Childhood Exposure to Second-Hand Smoke: Yes (father smoked in home) caffeine: Yes (cola daily) during the past year weight has: remained stable Dental Care, Regularly: Yes Physical Activity Frequency: Does not Exercise Assistive Devices: Cane and Glasses Review of Systems Review of Systems: ROS per HPI, all other systems reviewed and negative Physical Exam Constitutional: WD/WN, vitals as above Eyes: PERRL, conjunctivae normal, anicteric sclerae ENMT: external ear and nose normal, oropharynx normal Respiratory: normal respiratory effort, lungs clear to auscultation Cardiovascular: Rate/Rhythm: regular rate and regular rhythm Vessels: normal peripheral pulses Extremities: no edema Gastrointestinal (Abdomen): Inspection/Auscultation: normal bowel sounds Percussion/Palpation: + abdomen tender (LLQ, LUQ) and abdomen soft; no hepatosplenomegaly Musculoskeletal: no cyanosis or clubbing, extremities motor strength 5/5 Skin: no rashes, warm and dry Neurologic: PERRL, EOMI, accommodation nl, no face palsy, no dysarthria Psychiatric: A+Ox3, euthymic affect Results & Data Results & Data ([facility]) Vital Signs (Past 12 Hours) Vital Signs Temp Pulse Resp BP Pulse Ox 07/03/21 12:07 93 H 19 133/87 07/03/21 11:58 36.4 C L 97 H 20 134/68 97 Laboratory Results Short CBC 07/03/21 Range/Units 12:22 WBC 1.32 L (4.8-10.8) K/uL Hgb 6.4 L* (12.0-16.0) g/dL Hct 19.1 L* (37-47) % Plt Count 50 L (130-400) K/uL BMP 07/03/21 12:22 Sodium 138 Potassium 3.3 L Chloride 104 Carbon Dioxide 26 BUN 16 Creatinine 1.17 Glucose 122 H Calcium 8.8 Liver Function 07/03/21 Range/Units 12:22 Total Bilirubin 1.0 (0.2-1) mg/dl AST 9 L (15-37) U/L ALT 15 (12-78) U/L Alkaline Phosphatase 80 (45-117) U/L Albumin 3.8 (3.4-5.0) gm/dl Code Status & VTE Plan Code Status Patient is a full code as per my discussion with her. VTE Prophylaxis Plan VTE Prophylaxis will be ordered: Yes Supervising Physician Co-Signing Physician Notes 75-year-old female with PMH of follicular lymphoma 2003 status post left parotidectomy, chemo and radiation [last radiation June 08] and plan for chemo in coming weeks again, thoracis aortic aneurysm, hypothyroidism, hypertension, GERD, CKD stage III, DVT 2007 on Coumadin was sent to our ED 07/03 by outpatient oncologist for pancytopenia and transfusion of blood. Patient second Covid vaccine was in December 2020 She will receive blood products, continue monitor daily labs. FOBT negative in the ED. CT AP and chest sent. Continue with diet. Upon examination: GENERAL: Alert and oriented x3. NAD, on RA. HEENT: No pallor, no icterus. Pupils equal, round and reactive to light. Oral mucosa moist. NECK: No JVD, no neck masses. HEART: S1 and S2 heard. Regular rate and rhythm. No murmur, no gallop. RESPIRATORY SYSTEM: Normal AP diameter. No accessory muscle use. No wheezing, no crackles. ABDOMEN: Soft, bowel sounds present, LLQ minimally tender, no distention. CENTRAL NERVOUS SYSTEM: Alert and oriented x3. No facial droop. Speech is clear. Obeys simple commands. Moves extremities. EXTREMITIES: 1+ edema, no erythema seen. I have seen and examined the patient and have discussed the case with the provider above. I agree with the assessment and plan as stated.
--- NOTE | 2021-07-03 16:32 | Electrocardiogram Report ---
Test Reason : Blood Pressure : / mmHG Vent. Rate : 088 BPM Atrial Rate : 088 BPM P-R Int : 166 ms QRS Dur : 126 ms QT Int : 410 ms P-R-T Axes : 006 -17 004 degrees QTc Int : 496 ms Poor data quality, interpretation may be adversely affected Normal sinus rhythm Right bundle branch block Abnormal ECG When compared with ECG of 21-OCT-2019 17:39, No significant change was found Confirmed by Juan Atkinson ([id number]) on 07/03/2021 4:32:45 PM Referred By: Confirmed By:Juan Atkinson
[2021-07-03] MEDS ORDERED: OPTIRAY 320 100ml IV ONE (17:18)
--- NOTE | 2021-07-03 17:53 | CT Scan Report ---
CHEST CT WITH CONTRAST; CT ABDOMEN PELVIS WITH IV CONTRAST ONLY CT DOSE: 1289.01 mGy.cm HISTORY: Acute chest and abdominal pain in a patient with history of lymphoma pancytopenia, hx lymph parveen TECHNIQUE: Multiaxial CT images of the disc, abdomen and pelvis were performed following the IV admin istration of 90 cc of Optiray. A dose lowering technique was utilized adhering to the principles of ALARA. COMPARISON: CT chest, abdomen and pelvis October 21, 2019, PET CT from outside facility 03/14/2021 FINDINGS: CT CHEST: Unremarkable thyroid. The heart is normal in size. Mild coronary artery calcifications. Moderate athe rosclerosis of the aorta. Aberrant course of the right subclavian artery. Mild fusiform aneurysm dila tion of the ascending thoracic aorta measuring 4.1 x 4.1 cm is unchanged. No dissection. Mild dilatio n of the pulmonary artery. No pulmonary emboli identified. Indeterminate 1.9 cm mass of the mid superior left breast is similar to comparison. Mildly enlarged 1 0 mm right axillary lymph node on image 112 series 6 appears stable from comparison. No new or progre ssive adenopathy of the chest. No pneumothorax, pleural effusion, airspace consolidation or overt pul monary edema. Subsegmental mild bibasilar atelectasis/scarring. There are no suspicious pulmonary nod ules or masses identified. The central airways are patent. 8 mm groundglass nodule of the apical segm ent right upper lobe appears new from prior. Unremarkable soft tissues. No acute fracture. Chronic T1 2 compression deformity with progressive vertebral body height loss. 5 mm retropulsion previously nuha sured 4 mm. Unchanged probable bone island T5. CT ABDOMEN/PELVIS: No pneumatosis or pneumoperitoneum. The spleen is normal in size. Unremarkable pancreas and adrenal g lands. Cholecystectomy is likely postsurgical. Intrahepatic and extrahepatic biliary ductal dilation. Unremarkable liver. The kidneys are within normal limits. There is no hydronephrosis. Equivocal punc [place] nonobstructing calculi of the inferior pole left kidney. Unremarkable urinary bladder. Hysterect edgar. Atherosclerosis of the aorta without aneurysm. Infrarenal IVC filter. 2.1 x 1.3 cm left iliac ch ain lymph node on image 257 series 7 most recently measured approximately 3.4 x 2.4 cm on the 03/14/20 exam. No new or progressive adenopathy. Varices of the mons pubis. No bowel obstruction or bowel wall thickening. Colonic diverticulosis. No ascites or mesenteric infla mmation. Decompressed right hemicolon. Normal appendix. Unremarkable soft tissues. There is no acute fracture. Chronic T12 compression deformity. No suspicious bone lesions. Chronic T12 pars defects wit h 3 mm anterolisthesis L5 on S1. IMPRESSION: 1. No acute intrathoracic, intra-abdominal or intrapelvic abnormality. 2. Unchanged mildly enlarged right axillary lymph node. Mildly enlarged left iliac chain lymph node h as moderately decreased in size from the 03/14/2021 exam compatible with positive treatment response. No new or progressive adenopathy. 3. The spleen is normal in size. 4. Chronic T12 compression deformity with progressively worsened vertebral body height loss and mild retropulsion. 5. Additional findings as above. ACT 112: Negative or not required by law. Electronically signed by: Stephen Rebolledo M.D. 07/03/2021 5:51 PM
[2021-07-03] MEDS: GABAPENTIN 300 MG CAP PO SCH ×2 (20:26→21:27)
[2021-07-03] MEDS: ACETAMINOPHEN 325 MG TAB PO PRN (20:27)
[2021-07-03] MEDS ORDERED: ROSUVASTATIN CALCIUM 20 MG TAB PO SCH (21:00)
[2021-07-03] MEDS ORDERED: VENLAFAXINE HCL XR 75 MG CAPXR PO SCH (21:00)
[2021-07-03 23:49] LABS: Hemoglobin 7.7 g/dL (12.0-16.0); Mean Corpuscular Hemoglobin 28.8 pg (25-34); Mean Corpuscular Hgb Conc 33.5 g/dL (32-36); Mean Corpuscular Volume 86.1 fL (80-100); Nucleated RBC # (auto) 0.02 K/uL (0-0); Nucleated RBC % (auto) 1.1 %; RDW Coefficient of Variation 15.9 % (11.5-14.5); RDW Standard Deviation 49.6 fL (36.4-46.3); Red Blood Count 2.67 M/uL (4.2-5.4); White Blood Count 1.63 K/uL (4.8-10.8)
[2021-07-04 00:12] LABS: Mean Platelet Volume 9.6 fL (7.4-10.4); Platelet Count 44 K/uL (130-400)
[2021-07-04 06:01] LABS: Hematocrit (blood only) 23.9 % (37-47); Hemoglobin 8.1 g/dL (12.0-16.0); Mean Corpuscular Hemoglobin 28.9 pg (25-34); Mean Corpuscular Hgb Conc 33.9 g/dL (32-36); Mean Corpuscular Volume 85.4 fL (80-100); RDW Coefficient of Variation 16.1 % (11.5-14.5); RDW Standard Deviation 50.4 fL (36.4-46.3); White Blood Count 1.42 K/uL (4.8-10.8)
[2021-07-04 06:04] LABS: Mean Platelet Volume 10.1 fL (7.4-10.4); Platelet Count 51 K/uL (130-400)
[2021-07-04 06:29] LABS: BUN Creatinine Ratio 13.8 (10-20); Calcium 8.1 mg/dl (8.5-10.1); Est GFR (African American) 53.5 ml/min; Est GFR (Non-African American) 46.2 ml/min; Potassium 3.7 mmol/L (3.5-5.1)
[2021-07-04] MEDS ORDERED: LEVOTHYROXINE SODIUM 112 MCG TABLET PO SCH (06:30)
[2021-07-04 07:47] VITALS: BP 121/75; PULSE 75; TEMP 98.1; O2SAT 96
[2021-07-04] MEDS: GABAPENTIN 300 MG CAP PO SCH ×2 (08:09→12:28)
[2021-07-04] MEDS ORDERED: PANTOprazole 40 MG TAB PO SCH (09:00)
[2021-07-04] MEDS: ACETAMINOPHEN 325 MG TAB PO PRN (10:36)
[2021-07-04 11:53] LABS: ALC (manual) 0.67 K/uL (1.2-3.4); ANC (manual) 0.47 K/uL (1.4-6.5); Basophils # (manual) 0.01 K/uL (0-0.2); Basophils % (manual) 0.9 %; Blast # (manual) 0.06 K/uL (0-0); Blast Cells % (manual) 4.4 %; Eosinophils # (manual) 0.01 K/uL (0-0.5); Eosinophils % (manual) 0.9 %; Lymphocytes # (manual) 0.67 K/uL (1.2-3.4); Monocytes % (manual) 13.9 %; Neutrophils # (manual) 0.47 K/uL (1.4-6.5)
--- NOTE | 2021-07-04 15:20 | Discharge Summary ---
Date of Service July 04, 2021 Admission HPI Per Admitting Provider 75-year-old female with PMH hypothyroidism, thoracic aortic aneurysm, HTN, GERD, CKD stage III, follicular lymphoma s/p left parotidectomy, chemo and radiation, history of DVT anticoagulated on Coumadin, and other problems listed below who presents to the ED by referral of outpatient oncologist for evaluation of pancytopenia. Patient's initial lymphoma diagnosis dates back to 2003. 02/2021 PET/CT showed progression of disease in left pelvis and patient completed radiation therapy on 06/08/2021. Plan was to start Rituxan. Patient had routine labs as an outpatient today that showed a hemoglobin of 6.3. She was then referred to the ED for further evaluation. Patient reports that for the past couple of weeks, she has felt very fatigued and weak. She has had lightheadedness and dizziness however no syncopal event. Reports LLQ abdominal pain for the past couple weeks as well. No fevers or chills. Reports a poor appetite however no nausea, vomiting, diarrhea. She denies urinary symptoms. In the ED, labs show WBC 1.3K, Hgb 6.4, platelet 50 K, ANC 670. Patient was typed and crossed for 2 units PRBC. She is hemodynamically stable. There are no obvious signs of bleeding. Admission Exam Per Admitting Provider GENERAL: Alert and oriented x3. NAD, on RA. HEENT: No pallor, no icterus. Pupils equal, round and reactive to light. Oral mucosa moist. NECK: No JVD, no neck masses. HEART: S1 and S2 heard. Regular rate and rhythm. No murmur, no gallop. RESPIRATORY SYSTEM: Normal AP diameter. No accessory muscle use. No wheezing, no crackles. ABDOMEN: Soft, bowel sounds present, LLQ minimally tender, no distention. CENTRAL NERVOUS SYSTEM: Alert and oriented x3. No facial droop. Speech is clear. Obeys simple commands. Moves extremities. EXTREMITIES: 1+ edema, no erythema seen. Principal Diagnosis Pancytopenia Symptomatic anemia Discharge Exam GENERAL: Alert and oriented x3. NAD, on RA. HEENT: No pallor, no icterus. Pupils equal, round and reactive to light. Oral mucosa moist. NECK: No JVD, no neck masses. HEART: S1 and S2 heard. Regular rate and rhythm. No murmur, no gallop. RESPIRATORY SYSTEM: Normal AP diameter. No accessory muscle use. No wheezing, no crackles. ABDOMEN: Soft, bowel sounds present, nontender, no distention. CENTRAL NERVOUS SYSTEM: Alert and oriented x3. No facial droop. Speech is clear. Obeys simple commands. Moves extremities. EXTREMITIES: Trace edema, no erythema seen. Discharge Data Allergies Allergy/AdvReac Type Severity Reaction Status Date / Time No Known Allergies Allergy Verified 07/03/21 13:44 Consultations 07/03/21 13:43 ED Decision to Admit Stat Ordered Studies 07/03/21 15:01 CT abd pelvis IV con only Urgent CT chest diagnostic w con Urgent Hospital Course (1) Pancytopenia: 75-year-old female with PMH of follicular lymphoma 2004 status post left parotidectomy, chemo and radiation [last radiation June 08] and plan for chemo in coming weeks again, thoracis aortic aneurysm, hypothyroidism, hypertension, GERD, CKD stage III, DVT 2007 on Coumadin was sent to our ED 07/03 by outpatient oncologist for pancytopenia and transfusion of blood. Patient second Covid vaccine was in December 2020. Patient received 2 unit of PRBC transfusion while inpatient. Patient remained afebrile and has no identifiable source/any concern of infection. Care was coordinated closely with her outpatient oncology Dr. Saucedo who suggested holding her Coumadin because of her ongoing pancytopenia/thrombocytopenia and is okay with her going. FOBT was negative in the ED. Patient is to get done her CBC with differential and INR in 3 days and have the results forwarded to her PCP or oncology doctor. Patient needs to get in touch with her oncology doctor/PCP for concerns regarding resuming of her Coumadin and transition of Care reevaluation/adjustment. Patient was discharged to home with following instruction at the time discharge: Follow-up with your primary care physician within a week time. Follow-up with your oncology doctor within a week time. Get CBC with differential and INR done in 2 to 3 days and have the results forwarded to your oncology doctor. Take medications as prescribed. Avoid sick contacts. Your warfarin has been held because of ongoing low platelet count. Follow-up with your primary care doctor/oncology with regard to resuming the warfarin within a week time. Total Time Total Time Spent Total Time Spent (In Minutes): 50 Discharge Plan Discharge Items Patient Disposition: Home - Self-Care Reason For Visit: ANEMIA Discharge Diagnosis: Pancytopenia Symptomatic anemia Follicular lymphoma Activity: As commented below Activity Comment: Resume your previous activities, avoid contact with sick people. Non-emergency contact: Primary Care Provider Call non-emergency contact if: you have any medication questions, your symptoms worsen and your rectal temperature is above 100.4 Follow-up/Referrals: Flor Rubio DO [Primary Care Provider] - (Date & Time 07/10/2021 11:00 AM Provider Flor Rubio DO Department Family Practice [facility] ) Walter Saucedo MD [Hospitalist] - (Date & Time 07/10/2021 3:00 PM Provider Walter Saucedo MD Department Hematology/Oncology [facility] ) Diet: Heart Healthy Addtl Attending Provider Instructions: Follow-up with your primary care physician within a week time. Follow-up with your oncology doctor within a week time. Get CBC with differential and INR done in 2 to 3 days and have the results forwarded to your oncology doctor. Take medications as prescribed. Avoid sick contacts. Your warfarin has been held because of ongoing low platelet count. Follow-up with your primary care doctor/oncology with regard to resuming the warfarin within a week time. Pending Studies at Discharge: No Stand-Alone Forms: My [facility] [employer], Smoking Cessation Medications and DC Order Prescriptions: Continued Breo Ellipta 100-25 mcg/dose blister with device 1 inh inhalation QAM PRN (Reason: Shortness Of Breath Or Wheezing) RF: 0 losartan [Cozaar] 100 mg tablet 100 mg PO DAILY RF: 0 venlafaxine [Effexor XR] 75 mg capsule,extended release 24hr 75 mg PO HS RF: 0 metoprolol succinate [Toprol XL] 100 mg tablet extended release 24 hr 100 mg PO DAILY RF: 0 pantoprazole [Protonix] 40 mg tablet,delayed release (DR/EC) 40 mg PO QAM RF: 0 levothyroxine [Synthroid] 112 mcg tablet 112 mcg PO QAM RF: 0 rosuvastatin [Crestor] 40 mg tablet 40 mg PO HS RF: 0 gabapentin [Neurontin] 300 mg capsule 300 mg PO QID RF: 0 fluticasone propionate [Flonase Allergy Relief] 50 mcg/actuation [place],Suspension 2 spray INTRANASAL QAM RF: 0 diclofenac sodium [Voltaren Arthritis Pain] 1 % gel 4 g TOPICAL QID PRN (Reason: Pain) RF: 0 hydrochlorothiazide 12.5 mg capsule 12.5 mg PO DAILY PRN (Reason: Edema) RF: 0 Discontinued warfarin 5 mg tablet 5 mg PO MOFR RF: 0 warfarin 5 mg tablet 2.5 mg PO SUTUWETHSA RF: 0 Discharge Orders: Discharge Order (Routine); Ordered 07/04/21 Ordered By: Teresa Santos Admission Data Admit Date/Time: 07/03/21 13:53 Attending Provider: Teresa Santos Admit Provider: Teresa Santos Primary Care Provider: Flor Rubio Other Providers: Teresa Santos
== END 2021-07-04 16:00 | disposition home or self-care (01) | DRG 809 ==
LOC: ED 11:52 → 3E 13:53

== ENCOUNTER 2021-07-13 14:03 | Inpatient (IN) ==
--- NOTE | 2021-07-13 15:27 | Emergency Department Note ---
Impression & Plan Symptomatic anemia ED Provider Note INFORMANT: Patient ED PROVIDER(S): Wellington Manjarrez MD CHIEF COMPLAINT: Anemia PLAN: Disposition: Admitted Condition: Good Outpatient prescription management: none Referral: None MEDICAL DECISION MAKING: Patient presented because of anemia. Laboratory testing confirmed this. She had hemoglobin of 6.6. Vitals are relatively stable. She was generally weak but otherwise doing well. She was consented for packed red blood cell transfusion. This was ordered and begun in the ER. Patient will need further management in the hospital. Consultation was made with the [facility] hospitalist service. Patient was evaluated in the ER and admitted. Triage Nursing notes reviewed and agree them. Vital Signs: reviewed and remarkable for no significant abnormalities Differential diagnosis: Symptomatic anemia, infection, dehydration, metabolic abnormality, hypo/hyperglycemia, electrolyte disturbance, anemia, hypoxia, cardiac sources, intracerebral event, toxicologic, neurologic, as well as other pathologies. Diagnostics interpreted by me: ECG: none Cardiac Monitoring: Cardiac monitoring ordered by me: The patient was placed on continuous cardiac monitoring and observed. It revealed a normal sinus rhythm at 80 beats per minute without ectopy or evidence of dysrhythmia. Imaging studies: Deferred HPI: The patient is a 75 year old female who presents to the Emergency Room with complaints of anemia. This started with previous labs and is found again today with a hemoglobin of 6.8. The patient was admitted on 03 July for anemia. The patient also notes the following associated symptoms, weakness, fatigue. The patient was directed to the ER by [facility] hematology. The patient has taken no medication for relieving factors. Current pain is rated as 0/10. Patient has a history of lymphoma. Pt denies LOC, headache, fevers, chills, diaphoresis, visual changes, neck pain, chest pain, breathing difficulties, nausea, vomiting, abdominal pain, back pain, melena, hematochezia, urinary symptoms, numbness, lymphadenopathy, rash, or other complaints. ROS: See above HPI for pertinent positives & negatives. A total of 10 systems reviewed and were otherwise negative. PAST MEDICAL HISTORY:See Below , lymphoma, anemia, DVT PAST SURGICAL HISTORY:See Below, FAMILY HISTORY:See Below SOCIAL HISTORY:See Below, non-smoker HOME MEDICATIONS:See Below ALLERGIES:See Below VITALS:See Below PHYSICAL EXAMINATION: GENERAL: Awake, alert, well-appearing, in no distress HENT: Normocephalic, atraumatic. Oropharynx unremarkable. EYES: Pale conjunctiva. Sclera non-icteric. NECK: Inspection normal. Non-tender. Supple. No nuchal rigidity. FROM. No masses. RESPIRATORY: Clear to auscultation. No wheezes. No rales. Normal respiratory effort. CARDIAC: Borderline tachycardic rate. Normal rhythm. Holosystolic murmur. No rubs. Extremities warm and well perfused. Pulses equal. No JVD. GI: Soft, non-distended. No tenderness to palpation. No rebound or guarding. No masses. RECTAL: Deferred. MUSCULOSKELETAL: Atraumatic. Chest examination reveals no tenderness. The back is symmetrical on inspection without obvious abnormality. There is no CVA tenderness to palpation. No joint edema. LOWER EXTREMITIES: Calves are equal size bilaterally and non-tender. Trace edema. Chronic discoloration. NEURO: Normal sensorium. No sensory or motor deficits noted. SKIN: No jaundice noted.Petechiae on the lower legs Wellington Manjarrez MD Past Med/Surg History Medical History Asthma CKD (chronic kidney disease), stage III COPD (chronic obstructive pulmonary disease) Diverticulitis Esophageal reflux Essential tremor Gastroparesis History of DVT (deep vein thrombosis) HLD (hyperlipidemia) HTN (hypertension) Hyponatremia Hypothyroidism Neutropenia Pancreatitis Post-herpetic trigeminal neuralgia Thoracic aortic aneurysm without rupture Surgical History H/O parotidectomy (11/2003) H/O: hysterectomy History of bone marrow biopsy (10/2011) History of colonoscopy (08/15/08) History of colonoscopy (01/11/14) History of colonoscopy (02/16/19) History of cystoscopy (06/02/12) History of ERCP (06/21/08) History of esophagogastroduodenoscopy (EGD) (03/06/16) History of excision of lesion (04/02/21) Right Superficial Parotid S/P cholecystectomy S/P insertion of IVC (inferior vena caval) filter (06/26/12) [place] Filter Placement Right Groin Dr. Srivastava at [facility] Status post excisional biopsy (07/07/17) Left Inguinal Lymph Node Dr. Anderson at [facility] Status post fine needle aspiration (04/05/21) Left External Iliac Lymph Node under [facility] Dr. Coreas at [facility] Status post fine needle aspiration (02/08/19) Right Parotid Gland Lesion Family History Grandmother (Maternal) , Passed Age 52 due to Colon Cancer No problems noted. Father , Passed Age 72 due to Lung Cancer, occupation related No problems noted. Mother , Passed Age 84 of unknown cancer No problems noted. Brother , Passed Age 70 of unknown cancer No problems noted. Brother No problems noted. Daughter CLL (chronic lymphocytic leukemia) Son No problems noted. Son No problems noted. Son No problems noted. Aunt , Passed Age 70 due to Breast Cancer No problems noted. 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 How many Children do You have: 4 Feels Safe at Home: Yes Childhood Exposure to Second-Hand Smoke: Yes (father smoked in home) caffeine: Yes (cola daily) during the past year weight has: remained stable Dental Care, Regularly: Yes Physical Activity Frequency: Does not Exercise Assistive Devices: Cane Allergies Allergies Allergy/AdvReac Type Severity Reaction Status Date / Time No Known Allergies Allergy Verified 07/13/21 15:23 Home Meds Home Medications Medication Instructions Recorded Confirmed fluticasone propionate 50 2 spray INTRANASAL QAM 08/03/19 07/13/21 mcg/actuation nasal spray,suspension (Flonase Allergy Relief) gabapentin 300 mg capsule 300 mg PO QID 08/03/19 07/13/21 (Neurontin) levothyroxine 112 mcg tablet 112 mcg PO QAM 08/03/19 07/13/21 (Synthroid) pantoprazole 40 mg tablet,delayed 40 mg PO QAM 08/03/19 07/13/21 release (Protonix) rosuvastatin 40 mg tablet (Crestor) 40 mg PO HS 08/03/19 07/13/21 venlafaxine 75 mg capsule,extended 75 mg PO HS 08/03/19 07/13/21 release 24 hr (Effexor XR) diclofenac sodium 1 % topical gel 4 g TOPICAL QID PRN 10/21/19 07/13/21 (Voltaren Arthritis Pain) fluticasone furoate 100 1 inh INHALATION QAM PRN 05/02/21 07/13/21 mcg-vilanterol 25 mcg/dose inhalation powder (Breo Ellipta) hydrochlorothiazide 12.5 mg capsule 12.5 mg PO DAILY PRN 07/03/21 07/13/21 Results & Data (ED) Vital Signs Vital Signs - 24 hr 07/13/21 14:15 07/13/21 15:12 07/13/21 17:00 Temperature 36.6 C Temperature Source Oral Pulse Rate 104 H Pulse Rate [Left Finger] 98 H 88 Pulse Rhythm Pulse Strength Respiratory Rate 18 18 20 Respiratory Effort / Characteristics Non-Labored Spontaneous Respiratory Depth Normal Blood Pressure 155/72 H Blood Pressure [Left Arm] 106/67 115/76 Blood Pressure Mean 99 Blood Pressure Mean [Left Arm] 80 89 Blood Pressure Position Sitting Blood Pressure Position [Left Arm] Sitting Pulse Oximetry 95 100 98 Oxygen Delivery Method Room Air Sepsis Recent Fever Within 48 Hours No Sepsis New/Unexplained Change in Mental Status N/A Sepsis Action Taken by Nursing No Action Required 07/13/21 17:18 07/13/21 17:30 07/13/21 17:34 Temperature 36.7 C 36.7 C 36.7 C Temperature Source Oral Oral Oral Pulse Rate 80 83 80 Pulse Rate [Left Finger] Pulse Rhythm Regular Regular Pulse Strength Normal Normal Respiratory Rate 20 20 20 Respiratory Effort / Characteristics Respiratory Depth Blood Pressure 138/56 L 161/73 H 125/53 L Blood Pressure [Left Arm] Blood Pressure Mean 83 102 77 Blood Pressure Mean [Left Arm] Blood Pressure Position Sitting Sitting Sitting Blood Pressure Position [Left Arm] Pulse Oximetry 97 94 99 Oxygen Delivery Method Sepsis Recent Fever Within 48 Hours Sepsis New/Unexplained Change in Mental Status Sepsis Action Taken by Nursing Laboratory Data Result diagrams: 07/13/21 15:12 07/13/21 15:12 Lab Results 07/13/21 07/13/21 07/13/21 Range/Units 15:12 15:12 15:12 WBC 1.11 L (4.8-10.8) K/uL RBC 2.27 L (4.2-5.4) M/uL Hgb 6.6 L* (12.0-16.0) g/dL Hct 20.2 L* (37-47) % MCV 89.0 (80-100) fL MCH 29.1 (25-34) pg MCHC 32.7 (32-36) g/dL RDW Std Deviation 50.7 H (36.4-46.3) fL RDW Coeff of Rosamaria 15.7 H (11.5-14.5) % Plt Count 46 L (130-400) K/uL MPV 8.8 (7.4-10.4) fL Immature Gran % (Auto) 0.0 % Neut % (Auto) 33.3 % Lymph % (Auto) 53.2 % [place] % (Auto) 10.8 % Eos % (Auto) 0.9 % Baso % (Auto) 1.8 % Neut # (Auto) 0.37 L* (1.4-6.5) K/uL Lymph # (Auto) 0.59 L (1.2-3.4) K/uL [place] # (Auto) 0.12 (0.11-0.59) K/uL Eos # (Auto) 0.01 (0-0.5) K/uL Baso # (Auto) 0.02 (0-0.2) K/uL Immature Gran # (Auto) 0.00 (0.00-0.02) K/uL Poikilocytosis Present Ovalocytes 1+ PT 10.3 (9.0-12.0) Seconds INR 1.0 (0.9-1.1) APTT 20.4 L (21.0-31.0) Seconds PTT Ratio 0.8 Sodium 139 (136-145) mmol/L Potassium 3.4 L (3.5-5.1) mmol/L Chloride 107 (98-107) mmol/L Carbon Dioxide 26 (21-32) mmol/L Anion Gap 5.0 (3-11) BUN 16 (7-18) mg/dl Creatinine 1.13 (0.6-1.2) mg/dl Est Cr Clr Drug Dosing 50.3 ml/min Est GFR ( Amer) 54.7 ml/min Est GFR (Non-Af Amer) 47.2 ml/min BUN/Creatinine Ratio 14.2 (10-20) Glucose 148 H (70-99) mg/dl Calcium 8.6 (8.5-10.1) mg/dl Total Bilirubin 0.7 (0.2-1) mg/dl AST 7 L (15-37) U/L ALT 12 (12-78) U/L Alkaline Phosphatase 79 (45-117) U/L Total Protein 6.4 (6.4-8.2) gm/dl Albumin 3.7 (3.4-5.0) gm/dl Globulin 2.7 (2.5-4.0) gm/dl Albumin/Globulin Ratio 1.4 (0.9-2) Procalcitonin (0-0.5) ng/ml COVID-19 Eval Order SARS-CoV-2 (PCR) (Negative) Blood Type Antibody Screen Crossmatch 07/13/21 07/13/21 07/13/21 Range/Units 15:12 15:22 16:52 WBC (4.8-10.8) K/uL RBC (4.2-5.4) M/uL Hgb (12.0-16.0) g/dL Hct (37-47) % MCV (80-100) fL MCH (25-34) pg MCHC (32-36) g/dL RDW Std Deviation (36.4-46.3) fL RDW Coeff of Rosamaria (11.5-14.5) % Plt Count (130-400) K/uL MPV (7.4-10.4) fL Immature Gran % (Auto) % Neut % (Auto) % Lymph % (Auto) % [place] % (Auto) % Eos % (Auto) % Baso % (Auto) % Neut # (Auto) (1.4-6.5) K/uL Lymph # (Auto) (1.2-3.4) K/uL [place] # (Auto) (0.11-0.59) K/uL Eos # (Auto) (0-0.5) K/uL Baso # (Auto) (0-0.2) K/uL Immature Gran # (Auto) (0.00-0.02) K/uL Poikilocytosis Ovalocytes PT (9.0-12.0) Seconds INR (0.9-1.1) APTT (21.0-31.0) Seconds PTT Ratio Sodium (136-145) mmol/L Potassium (3.5-5.1) mmol/L Chloride (98-107) mmol/L Carbon Dioxide (21-32) mmol/L Anion Gap (3-11) BUN (7-18) mg/dl Creatinine (0.6-1.2) mg/dl Est Cr Clr Drug Dosing ml/min Est GFR ( Amer) ml/min Est GFR (Non-Af Amer) ml/min BUN/Creatinine Ratio (10-20) Glucose (70-99) mg/dl Calcium (8.5-10.1) mg/dl Total Bilirubin (0.2-1) mg/dl AST (15-37) U/L ALT (12-78) U/L Alkaline Phosphatase (45-117) U/L Total Protein (6.4-8.2) gm/dl Albumin (3.4-5.0) gm/dl Globulin (2.5-4.0) gm/dl Albumin/Globulin Ratio (0.9-2) Procalcitonin 0.07 (0-0.5) ng/ml COVID-19 Eval Order Covid19 at [facility] SARS-CoV-2 (PCR) (Negative) Blood Type A Positive Antibody Screen NEGATIVE Crossmatch See Detail 07/13/21 Range/Units 16:52 WBC (4.8-10.8) K/uL RBC (4.2-5.4) M/uL Hgb (12.0-16.0) g/dL Hct (37-47) % MCV (80-100) fL MCH (25-34) pg MCHC (32-36) g/dL RDW Std Deviation (36.4-46.3) fL RDW Coeff of Rosamaria (11.5-14.5) % Plt Count (130-400) K/uL MPV (7.4-10.4) fL Immature Gran % (Auto) % Neut % (Auto) % Lymph % (Auto) % [place] % (Auto) % Eos % (Auto) % Baso % (Auto) % Neut # (Auto) (1.4-6.5) K/uL Lymph # (Auto) (1.2-3.4) K/uL [place] # (Auto) (0.11-0.59) K/uL Eos # (Auto) (0-0.5) K/uL Baso # (Auto) (0-0.2) K/uL Immature Gran # (Auto) (0.00-0.02) K/uL Poikilocytosis Ovalocytes PT (9.0-12.0) Seconds INR (0.9-1.1) APTT (21.0-31.0) Seconds PTT Ratio Sodium (136-145) mmol/L Potassium (3.5-5.1) mmol/L Chloride (98-107) mmol/L Carbon Dioxide (21-32) mmol/L Anion Gap (3-11) BUN (7-18) mg/dl Creatinine (0.6-1.2) mg/dl Est Cr Clr Drug Dosing ml/min Est GFR ( Amer) ml/min Est GFR (Non-Af Amer) ml/min BUN/Creatinine Ratio (10-20) Glucose (70-99) mg/dl Calcium (8.5-10.1) mg/dl Total Bilirubin (0.2-1) mg/dl AST (15-37) U/L ALT (12-78) U/L Alkaline Phosphatase (45-117) U/L Total Protein (6.4-8.2) gm/dl Albumin (3.4-5.0) gm/dl Globulin (2.5-4.0) gm/dl Albumin/Globulin Ratio (0.9-2) Procalcitonin (0-0.5) ng/ml COVID-19 Eval Order SARS-CoV-2 (PCR) NEGATIVE (Negative) Blood Type Antibody Screen Crossmatch Administered Medications Discontinued Medications Potassium Chloride (Potassium Chloride Crtab 20 Meq Tabcr) 20 meq PO NOW STA Stop: 07/13/21 18:39 Last Admin: 07/13/21 18:44 Dose: 20 meq Documented by: [id number] Discharge Plan Visit Data Chief Complaint: Abnormal Labs/Diagnostic Testing Stated Complaint: BLOOD TRANSFUSION NEEDED-SENT BY [facility] ED Provider: Wellington Manjarrez Discharge Problem: Symptomatic anemia Forms Stand Alone Forms: My [facility] [employer] Prescriptions Prescriptions: No Action Breo Ellipta 100-25 mcg/dose blister with device 1 inh inhalation QAM PRN (Reason: Shortness Of Breath Or Wheezing) RF: 0 venlafaxine [Effexor XR] 75 mg capsule,extended release 24hr 75 mg PO HS RF: 0 pantoprazole [Protonix] 40 mg tablet,delayed release (DR/EC) 40 mg PO QAM RF: 0 levothyroxine [Synthroid] 112 mcg tablet 112 mcg PO QAM RF: 0 rosuvastatin [Crestor] 40 mg tablet 40 mg PO HS RF: 0 gabapentin [Neurontin] 300 mg capsule 300 mg PO QID RF: 0 fluticasone propionate [Flonase Allergy Relief] 50 mcg/actuation [place],Suspension 2 spray INTRANASAL QAM RF: 0 diclofenac sodium [Voltaren Arthritis Pain] 1 % gel 4 g TOPICAL QID PRN (Reason: Pain) RF: 0 hydrochlorothiazide 12.5 mg capsule 12.5 mg PO DAILY PRN (Reason: Edema) RF: 0 Referrals Referrals: Flor Rubio DO [Primary Care Provider] -
[2021-07-13 15:37] LABS: Partial Thromboplastin Ratio 0.8; Partial Thromboplastin Time 20.4 Seconds (21.0-31.0); Prothrombin Time 10.3 Seconds (9.0-12.0)
[2021-07-13 15:42] LABS: Albumin Level 3.7 gm/dl (3.4-5.0); BUN Creatinine Ratio 14.2 (10-20); Calcium 8.6 mg/dl (8.5-10.1); Creatinine Clr Calc Pharmacy 50.3 ml/min; Est GFR (African American) 54.7 ml/min; Est GFR (Non-African American) 47.2 ml/min; Potassium 3.4 mmol/L (3.5-5.1)
[2021-07-13 15:45] LABS: Albumin Globulin Ratio 1.4 (0.9-2); Bilirubin,Total 0.7 mg/dl (0.2-1); Globulin 2.7 gm/dl (2.5-4.0); Total Protein 6.4 gm/dl (6.4-8.2)
[2021-07-13 15:52] LABS: Hematocrit (blood only) 20.2 % (37-47); Hemoglobin 6.6 g/dL (12.0-16.0); Mean Corpuscular Hemoglobin 29.1 pg (25-34); Mean Corpuscular Hgb Conc 32.7 g/dL (32-36); Mean Platelet Volume 8.8 fL (7.4-10.4); Platelet Count 46 K/uL (130-400); RDW Coefficient of Variation 15.7 % (11.5-14.5); RDW Standard Deviation 50.7 fL (36.4-46.3); Red Blood Count 2.27 M/uL (4.2-5.4); White Blood Count 1.11 K/uL (4.8-10.8)
[2021-07-13] MEDS ORDERED: SODIUM CHLORIDE 0.9% 250 ML IV PRN ×3 (15:55→22:09)
[2021-07-13 16:08] LABS: Basophils # (auto) 0.02 K/uL (0-0.2); Basophils % (auto) 1.8 %; Eosinophils # (auto) 0.01 K/uL (0-0.5); Eosinophils % (auto) 0.9 %; Lymphocytes # (auto) 0.59 K/uL (1.2-3.4); Lymphocytes % (auto) 53.2 %; Monocytes # (auto) 0.12 K/uL (0.11-0.59); Monocytes % (auto) 10.8 %; Neutrophils # (auto) 0.37 K/uL (1.4-6.5); Neutrophils % (auto) 33.3 %; Ovalocytes 1+; Poikilocytosis Present
--- NOTE | 2021-07-13 16:12 | History & Physical Report ---
Date of Service July 13, 2021 Assessment & Plan (1) Symptomatic anemia: (2) Pancytopenia: Plan: Follicular lymphoma H/O follicular lymphoma s/p parotidectomy, chemotherapy, radiation. Recently had recurrence of disease in the left pelvis and completed radiation therapy on 06/08/2021. Is scheduled to have bone marrow biopsy next week Patient presenting to ER for outpatient Hgb: 6.8. Having fatigue past couple of days. 07/03 pancytopenia and s/p 2 units PRBCs Today in ER WBC 1.1 Hgb 6.6, platelet 46, ANC 363 No fever/chills, N/V/D, cough, SOB. No melena, hematochezia, hematuria, epistaxis Transfuse 2 unit PRBC Repeat H&H after transfusion Check FOBT Obtain procalcitonin and blood cultures Discussed with patient's oncologist, Dr. Saucedo History of DVT (deep vein thrombosis): S/P IVC filter Was anticoagulated on Coumadin, however this stopped last week secondary to thrombocytopenia HTN (hypertension): Pt self stopped metoprolol, losartan. Uses HCTZ as needed for BLE edema. Repor ts BP has been well controlled Monitor BP CKD (chronic kidney disease), stage III: Cr: 1.13. Baseline creatinine ~ 1.2 Monitor renal functions Hypothyroidism: Continue levothyroxine DVT prophylaxis: SCDs due to anemia/thrombocytopenia Full Code as per discussion with pt Follows with Dr uRbio for routine care Pt was seen and care coordinated with Dr Santos. See addendum History of Present Illness Chief Complaint: Anemia Primary Care Provider: Flor Rubio, DO Pt is 75 y/o F with PMH follicular lymphoma s/p parotidectomy chemo, radiation, now with recurrent lymphoma of inguinal area and completed radiation therapy on 06/08/2021, h/o DVT anticoagulated on Coumadin, however now off Coumadin secondary to thrombocytopenia, HTN, CKD III, hypothyroidism, thoracic aortic aneurysm presented to ER for anemia. Patient with history admission on 07/03/21 for symptomatic anemia, thrombocytopenia and received 2 units PRBCs at that time. Pt states her fatigue was much improved however past couple of days with fatigue and sensation of increased heart rate. Denies SOB, dizziness, syncope, CP, fall. Today outpatient labs with hemoglobin 6.8, PLT: 51. Patient reports she is scheduled for bone marrow biopsy next week. Pt states has HCTZ to use as needed for BLE edema however felt hasn't needed it, but does state has some BLE edema. Pt is off Coumadin secondary to thrombocytopenia. Denies fever/chills, diaphoresis, N/V/D/C, FUNG, vision changes, neck pain, cough, sore throat, choking, otalgia, rhinorrhea, abdominal pain, paresthesias, weakness, extremity weakness, rashes, urinary symptoms. Allergies Allergy/AdvReac Type Severity Reaction Status Date / Time No Known Allergies Allergy Verified 07/13/21 15:23 Home Medications Medication Instructions Recorded Confirmed Type fluticasone propionate 50 2 spray INTRANASAL QAM 08/03/19 07/13/21 History mcg/actuation nasal spray,suspension (Flonase Allergy Relief) gabapentin 300 mg capsule 300 mg PO QID 08/03/19 07/13/21 History (Neurontin) levothyroxine 112 mcg tablet 112 mcg PO QAM 08/03/19 07/13/21 History (Synthroid) pantoprazole 40 mg tablet,delayed 40 mg PO QAM 08/03/19 07/13/21 History release (Protonix) rosuvastatin 40 mg tablet (Crestor) 40 mg PO HS 08/03/19 07/13/21 History venlafaxine 75 mg capsule,extended 75 mg PO HS 08/03/19 07/13/21 History release 24 hr (Effexor XR) diclofenac sodium 1 % topical gel 4 g TOPICAL QID PRN 10/21/19 07/13/21 History (Voltaren Arthritis Pain) fluticasone furoate 100 1 inh INHALATION QAM PRN 05/02/21 07/13/21 History mcg-vilanterol 25 mcg/dose inhalation powder (Breo Ellipta) hydrochlorothiazide 12.5 mg capsule 12.5 mg PO DAILY PRN 07/03/21 07/13/21 History Past Med/Surg History Medical History Asthma CKD (chronic kidney disease), stage III COPD (chronic obstructive pulmonary disease) Diverticulitis Esophageal reflux Essential tremor Gastroparesis History of DVT (deep vein thrombosis) HLD (hyperlipidemia) HTN (hypertension) Hyponatremia Hypothyroidism Neutropenia Pancreatitis Post-herpetic trigeminal neuralgia Thoracic aortic aneurysm without rupture Surgical History H/O parotidectomy (11/2003) H/O: hysterectomy History of bone marrow biopsy (10/2011) History of colonoscopy (08/15/08) History of colonoscopy (01/11/14) History of colonoscopy (02/16/19) History of cystoscopy (06/02/12) History of ERCP (06/21/08) History of esophagogastroduodenoscopy (EGD) (03/06/16) History of excision of lesion (04/02/21) Right Superficial Parotid S/P cholecystectomy S/P insertion of IVC (inferior vena caval) filter (06/26/12) [place] Filter Placement Right Groin Dr. Srivastava at [facility] Status post excisional biopsy (07/07/17) Left Inguinal Lymph Node Dr. Anderson at [facility] Status post fine needle aspiration (04/05/21) Left External Iliac Lymph Node under [facility] Dr. Coreas at [facility] Status post fine needle aspiration (02/08/19) Right Parotid Gland Lesion Family History Grandmother (Maternal) , Passed Age 52 due to Colon Cancer No problems noted. Father , Passed Age 72 due to Lung Cancer, occupation related No problems noted. Mother , Passed Age 84 of unknown cancer No problems noted. Brother , Passed Age 70 of unknown cancer No problems noted. Brother No problems noted. Daughter CLL (chronic lymphocytic leukemia) Son No problems noted. Son No problems noted. Son No problems noted. Aunt , Passed Age 70 due to Breast Cancer No problems noted. 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 How many Children do You have: 4 Feels Safe at Home: Yes Childhood Exposure to Second-Hand Smoke: Yes (father smoked in home) caffeine: Yes (cola daily) during the past year weight has: remained stable Dental Care, Regularly: Yes Physical Activity Frequency: Does not Exercise Assistive Devices: Cane Review of Systems Review of Systems: All systems reviewed & are unremarkable except as noted in HPI & below Physical Exam Physical Exam: General: no distress, WDWN Head: normocephalic, atraumatic Eyes: PERRL, EOM's intact, conjunctiva pale, anicteric ENT: normal inspection external ears, nose, mucous membranes moist Neck: supple, trachea midline Lungs: clear, no respiratory distress, no wheezing/rhonchi/rales CV: RRR, no murmur, 1+ pretibial edema Abd: normal BS, soft, non-tender Ext: no cyanosis, no calf tenderness Neuro: A&O x 3, no focal deficits noted, normal affect Skin: warm, dry Results & Data Results & Data ([facility]) Vital Signs (Past 12 Hours) Vital Signs Temp Pulse Pulse Resp BP BP Pulse Ox 07/13/21 15:12 98 H 18 106/67 100 07/13/21 14:15 36.6 C 104 H 18 155/72 H 95 Laboratory Results Short CBC 07/13/21 Range/Units 15:12 WBC 1.11 L (4.8-10.8) K/uL Hgb 6.6 L* (12.0-16.0) g/dL Hct 20.2 L* (37-47) % Plt Count 46 L (130-400) K/uL BMP 07/13/21 15:12 Sodium 139 Potassium 3.4 L Chloride 107 Carbon Dioxide 26 BUN 16 Creatinine 1.13 Glucose 148 H Calcium 8.6 Liver Function 07/13/21 Range/Units 15:12 Total Bilirubin 0.7 (0.2-1) mg/dl AST 7 L (15-37) U/L ALT 12 (12-78) U/L Alkaline Phosphatase 79 (45-117) U/L Albumin 3.7 (3.4-5.0) gm/dl Supervising Physician Co-Signing Physician Notes 75 y/o F with PMH follicular lymphoma s/p parothyroidectomy , chemo, radiation, now with recurrent lymphoma of inguinal area and completed radiation therapy on 06/08/2021, h/o DVT anticoagulated on Coumadin, however now off Coumadin secondary to thrombocytopenia, HTN, CKD III, hypothyroidism, thoracic aortic aneurysm presented to ER for symptomatic anemia. Patient with history admission on 07/03/21 for symptomatic anemia, thrombocytopenia and received 2 units PRBCs at that time. Patient is found to have pancytopenia. Pro-Raffi negative. FOBT negative. Patient will receive blood transfusion. Upon examination: GENERAL: Alert and oriented x3. NAD, on RA. HEENT: Pallor, no icterus. Pupils equal, round and reactive to light. Oral mucosa moist. NECK: No JVD, no neck masses. HEART: S1 and S2 heard. Regular rate and rhythm. No murmur, no gallop. RESPIRATORY SYSTEM: Normal AP diameter. No accessory muscle use. No wheezing, no crackles. ABDOMEN: Soft, bowel sounds present, nontender, no distention. CENTRAL NERVOUS SYSTEM: Alert and oriented x3. No facial droop. Speech is clear. Obeys simple commands. Moves extremities. EXTREMITIES: No edema, no erythema seen. I have seen and examined the patient and have discussed the case with the pr gina above. I agree with the assessment and plan as stated.
[2021-07-13] MEDS ORDERED: FUROSEMIDE 40 MG/4 ML VIAL IV SCH (17:30)
[2021-07-13] MEDS ORDERED: POTASSIUM CHLORIDE CRTAB 20 MEQ TABCR PO STA (18:38)
[2021-07-13] MEDS ORDERED: ONDANSETRON INJ 2 MG/ML 2 ML VIAL IV PRN (20:41)
[2021-07-13] MEDS: ACETAMINOPHEN 325 MG TAB PO PRN (21:26)
[2021-07-13] MEDS: GABAPENTIN 300 MG CAP PO SCH (21:26)
[2021-07-13] MEDS: ROSUVASTATIN CALCIUM 20 MG TAB PO SCH (21:26)
[2021-07-13] MEDS: VENLAFAXINE HCL XR 75 MG CAPXR PO SCH (21:26)
[2021-07-13] MEDS ORDERED: FUROSEMIDE 20 MG in SYRINGE 0 ML IV STA (21:39)
[2021-07-14 04:19] LABS: Hemoglobin 8.5 g/dL (12.0-16.0); Mean Corpuscular Hemoglobin 28.9 pg (25-34); RDW Coefficient of Variation 15.2 % (11.5-14.5); RDW Standard Deviation 47.5 fL (36.4-46.3); Red Blood Count 2.94 M/uL (4.2-5.4); White Blood Count 1.31 K/uL (4.8-10.8)
[2021-07-14 04:29] LABS: Platelet Count 41 K/uL (130-400)
[2021-07-14 04:37] LABS: BUN Creatinine Ratio 15.4 (10-20); Calcium 8.5 mg/dl (8.5-10.1); Creatinine Clr Calc Pharmacy 48.8 ml/min; Est GFR (African American) 52.4 ml/min; Est GFR (Non-African American) 45.2 ml/min; Potassium 3.7 mmol/L (3.5-5.1)
[2021-07-14 05:14] LABS: Basophils # (auto) 0.01 K/uL (0-0.2); Basophils % (auto) 0.8 %; Eosinophils # (auto) 0.01 K/uL (0-0.5); Eosinophils % (auto) 0.8 %; Lymphocytes # (auto) 0.76 K/uL (1.2-3.4); Monocytes # (auto) 0.16 K/uL (0.11-0.59); Monocytes % (auto) 12.2 %; Neutrophils # (auto) 0.37 K/uL (1.4-6.5); Neutrophils % (auto) 28.2 %; Ovalocytes 1+
[2021-07-14] MEDS: LEVOTHYROXINE SODIUM 112 MCG TABLET PO SCH (06:00)
[2021-07-14] MEDS: GABAPENTIN 300 MG CAP PO SCH ×4 (09:05→20:48)
[2021-07-14] MEDS: PANTOprazole 40 MG TAB PO SCH (09:05)
[2021-07-14] MEDS: hydroCHLOROthiazide 25 MG TAB PO SCH (09:05)
[2021-07-14] MEDS: FLUTICASONE PROPIONATE NA SPR 16 GM BTL NAE SCH (09:06)
[2021-07-14] MEDS: ACETAMINOPHEN 325 MG TAB PO PRN (13:45)
--- NOTE | 2021-07-14 16:10 | Hospitalist Progress Note ---
Date of Service July 14, 2021 Assessment & Plan (1) Symptomatic anemia: (2) Pancytopenia: Plan: 5 y/o F with PMH follicular lymphoma s/p parothyroidectomy , chemo, radiation, now with recurrent lymphoma of inguinal area and completed radiation therapy on 06/08/2021, h/o DVT anticoagulated on Coumadin, however now off Coumadin secondary to thrombocytopenia, HTN, CKD III, hypothyroidism, thoracic aortic aneurysm presented to ER 07/14 for symptomatic anemia. Patient with history admission on 07/03/21 for symptomatic anemia, thrombocytopenia and received 2 units PRBCs at that time. #. Pancytopenia #. H/o Follicular lymphoma #. Symptomatic anemia Pt presented to ER 07/13 (10 days after recent 2 Unit PRBCs transfusion) with fatigue for few days and found to be pancytopenic and Hb of 6.8. No fever/chills, N/V/D, cough, SOB. No melena, hematochezia, hematuria, epistaxis. Pt pancytopenic, ANC 0.37K, no S/S of infection. 07/13 Procal neg; 07/13 Bl Cx pending s/p 2 unit PRBCs 07/13, Hb 8.5, await FOBT Monitor Hb. watch out for s/s of infection Has OP BM biopsy Friday next week. Discussed case with Dr. Saucedo and Dr. Street at different times. Updated. #. h/o DVT s/p IVC filter Was anticoagulated on Coumadin, however this stopped 07/03 secondary to thrombocytopenia in coordination with Oncology #. HTN Pt self stopped metoprolol, losartan. Uses HCTZ as needed for BLE edema. Reports BP has been well controlled BP under goal. Monitor BP #. CKD, Stage III Cr: 1.13. Baseline creatinine ~ 1.2 Monitor renal functions #. Hypothyroidism: Continue levothyroxine #. DVT prophylaxis: SCDs due to anemia/thrombocytopenia Full Code as per discussion with pt Follows with Dr Rubio for routine care Admission and Anticipated Discharge Date Admission Date: July 13, 2021 Subjective Pt sitting up in bed, RA, NAD, no issues overnight. Pt eating well, hasn't moved bowel. Denies fever/chills/sweats/cough/SOB/other ROS. Physical Exam Physical Exam: GENERAL: Alert and oriented x3. NAD, on RA. HEENT: Pallor improved, no icterus. Pupils equal, round and reactive to light. Oral mucosa moist. NECK: No JVD, no neck masses. HEART: S1 and S2 heard. Regular rate and rhythm. No murmur, no gallop. RESPIRATORY SYSTEM: Normal AP diameter. No accessory muscle use. No wheezing, no crackles. ABDOMEN: Soft, bowel sounds present, nontender, no distention. CENTRAL NERVOUS SYSTEM: Alert and oriented x3. No facial droop. Speech is clear. Obeys simple commands. Moves extremities. EXTREMITIES: No edema, no erythema seen. Results & Data Results & Data ([facility]) Vital Signs (Past 12 Hours) Vital Signs Temp Pulse Resp BP Pulse Ox 07/14/21 06:39 36.8 C 81 18 119/73 93
[2021-07-14] MEDS: VENLAFAXINE HCL XR 75 MG CAPXR PO SCH (20:49)
[2021-07-14] MEDS: ROSUVASTATIN CALCIUM 20 MG TAB PO SCH (20:49)
[2021-07-15] MEDS: LEVOTHYROXINE SODIUM 112 MCG TABLET PO SCH (05:13)
[2021-07-15 07:31] LABS: Hematocrit (blood only) 26.1 % (37-47); Hemoglobin 8.5 g/dL (12.0-16.0); Mean Corpuscular Hemoglobin 28.6 pg (25-34); Mean Corpuscular Hgb Conc 32.6 g/dL (32-36); Mean Corpuscular Volume 87.9 fL (80-100); RDW Coefficient of Variation 15.4 % (11.5-14.5); RDW Standard Deviation 49.1 fL (36.4-46.3); Red Blood Count 2.97 M/uL (4.2-5.4); White Blood Count 1.13 K/uL (4.8-10.8)
[2021-07-15 07:37] LABS: Mean Platelet Volume 9.6 fL (7.4-10.4); Platelet Count 47 K/uL (130-400)
[2021-07-15 08:01] LABS: BUN Creatinine Ratio 19.7 (10-20); Creatinine Clr Calc Pharmacy 59.4 ml/min; Est GFR (African American) 66.6 ml/min; Est GFR (Non-African American) 57.4 ml/min; Magnesium 2.1 mg/dl (1.8-2.4); Potassium 4.1 mmol/L (3.5-5.1)
[2021-07-15 08:08] VITALS: BP 133/74; PULSE 95; TEMP 98.6; O2SAT 95
[2021-07-15] MEDS: GABAPENTIN 300 MG CAP PO SCH ×2 (09:10→12:55)
[2021-07-15] MEDS: FLUTICASONE PROPIONATE NA SPR 16 GM BTL NAE SCH (09:10)
[2021-07-15] MEDS: hydroCHLOROthiazide 25 MG TAB PO SCH (10:32)
[2021-07-15] MEDS: PANTOprazole 40 MG TAB PO SCH (10:33)
[2021-07-15] MEDS ORDERED: MUPIROCIN 2% OINT 22 GM TUBE EXT SCH (10:45)
[2021-07-15] MEDS: ACETAMINOPHEN 325 MG TAB PO PRN (12:54)
--- NOTE | 2021-07-15 16:01 | Discharge Summary ---
Date of Service July 15, 2021 Admission HPI Per Admitting Provider Pt is 75 y/o F with PMH follicular lymphoma s/p parotidectomy chemo, radiation, now with recurrent lymphoma of inguinal area and completed radiation therapy on 06/08/2021, h/o DVT anticoagulated on Coumadin, however now off Coumadin secondary to thrombocytopenia, HTN, CKD III, hypothyroidism, thoracic aortic aneurysm presented to ER for anemia. Patient with history admission on 07/03/21 for symptomatic anemia, thrombocytopenia and received 2 units PRBCs at that time. Pt states her fatigue was much improved however past couple of days with fatigue and sensation of increased heart rate. Denies SOB, dizziness, syncope, CP, fall. Today outpatient labs with hemoglobin 6.8, PLT: 51. Patient reports she is scheduled for bone marrow biopsy next week. Pt states has HCTZ to use as needed for BLE edema however felt hasn't needed it, but does state has some BLE edema. Pt is off Coumadin secondary to thrombocytopenia. Denies fever/chills, diaphoresis, N/V/D/C, FUNG, vision changes, neck pain, cough, sore throat, choking, otalgia, rhinorrhea, abdominal pain, paresthesias, weakness, extremity weakness, rashes, urinary symptoms. Admission Exam Per Admitting Provider GENERAL: Alert and oriented x3. NAD, on RA. HEENT: Pallor, no icterus. Pupils equal, round and reactive to light. Oral mucosa moist. NECK: No JVD, no neck masses. HEART: S1 and S2 heard. Regular rate and rhythm. No murmur, no gallop. RESPIRATORY SYSTEM: Normal AP diameter. No accessory muscle use. No wheezing, no crackles. ABDOMEN: Soft, bowel sounds present, nontender, no distention. CENTRAL NERVOUS SYSTEM: Alert and oriented x3. No facial droop. Speech is clear. Obeys simple commands. Moves extremities. EXTREMITIES: No edema, no erythema seen. Principal Diagnosis Symptomatic anemia Discharge Exam GENERAL: Alert and oriented x3. NAD, on RA. HEENT: Pallor improved, no icterus. Pupils equal, round and reactive to light. Oral mucosa moist. NECK: No JVD, no neck masses. HEART: S1 and S2 heard. Regular rate and rhythm. No murmur, no gallop. RESPIRATORY SYSTEM: Normal AP diameter. No accessory muscle use. No wheezing, no crackles. ABDOMEN: Soft, bowel sounds present, nontender, no distention. CENTRAL NERVOUS SYSTEM: Alert and oriented x3. No facial droop. Speech is clear. Obeys simple commands. Moves extremities. EXTREMITIES: No edema, no erythema seen. Discharge Data Allergies Allergy/AdvReac Type Severity Reaction Status Date / Time No Known Allergies Allergy Verified 07/13/21 15:23 Consultations 07/13/21 16:11 ED Decision to Admit Stat Hospital Course (1) Symptomatic anemia: (2) Pancytopenia: 5 y/o F with PMH follicular lymphoma s/p parothyroidectomy , chemo, radiation, now with recurrent lymphoma of inguinal area and completed radiation therapy on 06/08/2021, h/o DVT anticoagulated on Coumadin, however now off Coumadin secondary to thrombocytopenia, HTN, CKD III, hypothyroidism, thoracic aortic aneurysm presented to ER 07/14 for symptomatic anemia. Patient with history admission on 07/03/21 for symptomatic anemia, thrombocytopenia and received 2 units PRBCs at that time. #. Pancytopenia #. H/o Follicular lymphoma #. Symptomatic anemia Pt presented to ER 07/13 (10 days after recent 2 Unit PRBCs transfusion) with fatigue for few days and found to be pancytopenic and Hb of 6.8. No fever/chills, N/V/D, cough, SOB. No melena, hematochezia, hematuria, epistaxis. Pt pancytopenic, ANC 0.37K, no S/S of infection. 07/13 Procal neg; 07/13 Bl Cx pending at the time of discharge. s/p 2 unit PRBCs 07/13, Hb 8.5, hemoglobin stayed stable. Has OP BM biopsy Friday this week. Discussed case with Dr. Saucedo and Dr. Street at different times. Patient advised to follow-up with her PCP within 1 week time, and advised to keep up her already scheduled bone marrow biopsy. #. h/o DVT s/p IVC filter Was anticoagulated on Coumadin, however this stopped 07/03 secondary to thrombocytopenia in coordination with Oncology #. HTN Pt self stopped metoprolol, losartan. Uses HCTZ as needed for BLE edema. Reports BP has been well controlled BP under goal. Monitor BP #. CKD, Stage III Cr: 1.13. Baseline creatinine ~ 1.2 Monitor renal functions #. Hypothyroidism: Continue levothyroxine #. DVT prophylaxis: SCDs due to anemia/thrombocytopenia Full Code as per discussion with pt Follows with Dr Rubio for routine care Patient developed some erythema over her left medial elbow at the site of IV cannula, IV cannula removed, patient discharged with 5 days worth of mupirocin ointment, patient advised to contact PCP or emergency in case she develops fever or infection in the area. Patient discharged home with following instruction at time of discharge: Follow-up with your primary care physician within a week time as discussed at bedside. Maintain your scheduled bone marrow biopsy coming Friday and follow-up with your hematology/oncology doctor. If you develop any fever/wound, contact your PCP or ER immediately. Take medications as prescribed. Total Time Total Time Spent Total Time Spent (In Minutes): 40 Discharge Plan Discharge Items Patient Disposition: Home - Self-Care Reason For Visit: ANEMIA Discharge Diagnosis: Symptomatic anemia Activity: Resume your previous activity Non-emergency contact: Primary Care Provider Call non-emergency contact if: you have any medication questions, your symptoms worsen and your rectal temperature is above 100.4 Follow-up/Referrals: Flor Rubio DO [Primary Care Provider] - Diet: Regular Addtl Attending Provider Instructions: Follow-up with your primary care physician within a week time as discussed at bedside. Maintain your scheduled bone marrow biopsy coming Friday and follow-up with your hematology/oncology doctor. If you develop any fever/wound, contact your PCP or ER immediately. Take medications as prescribed. Pending Studies at Discharge: Yes (07/13 blood culture final results.) Stand-Alone Forms: My [employer], Smoking Cessation Medications and DC Order Prescriptions: New mupirocin 2 % ointment 1 applic topical BID 5 Days Qty: 15 RF: 0 Continued Breo Ellipta 100-25 mcg/dose blister with device 1 inh inhalation QAM PRN (Reason: Shortness Of Breath Or Wheezing) RF: 0 venlafaxine [Effexor XR] 75 mg capsule,extended release 24hr 75 mg PO HS RF: 0 pantoprazole [Protonix] 40 mg tablet,delayed release (DR/EC) 40 mg PO QAM RF: 0 levothyroxine [Synthroid] 112 mcg tablet 112 mcg PO QAM RF: 0 rosuvastatin [Crestor] 40 mg tablet 40 mg PO HS RF: 0 gabapentin [Neurontin] 300 mg capsule 300 mg PO QID RF: 0 fluticasone propionate [Flonase Allergy Relief] 50 mcg/actuation [place],Suspension 2 spray INTRANASAL QAM RF: 0 diclofenac sodium [Voltaren Arthritis Pain] 1 % gel 4 g TOPICAL QID PRN (Reason: Pain) RF: 0 hydrochlorothiazide 12.5 mg capsule 12.5 mg PO DAILY PRN (Reason: Edema) RF: 0 Discharge Orders: Discharge Order (Routine); Ordered 07/15/21 Ordered By: Teresa Tyler/Other Patient Handouts: Anemia, Anemia During Cancer Admission Data Admit Date/Time: 07/13/21 16:31 Attending Provider: Teresa Santos Admit Provider: Teresa Santos Primary Care Provider: Flor Rubio Other Providers: Teresa Santos Other Interventions: Discharge Summary Assessment (RN) Last Done: 07/15/21 11:07
== END 2021-07-15 13:25 | disposition home or self-care (01) | DRG 809 ==
LOC: ED 14:03 → 3N 16:31

== ENCOUNTER 2021-08-25 14:45 | Inpatient (IN) ==
--- NOTE | 2021-08-25 14:59 | CT Scan Report ---
CT head/brain wo con CLINICAL HISTORY: 75 years-old Female with Stroke Like Symptoms. Acute strokelike symptoms TECHNIQUE: Multiple axial CT images of the head were obtained without contrast. A dose lowering tech nique was utilized adhering to the principles of ALARA. COMPARISON: Head CT 08/03/2019 FINDINGS: No acute intracranial hemorrhage, midline shift, intracranial mass, hydrocephalus, territorial ischem ia or abnormal extra-axial collection. Age-related involutional changes. White matter hypodensities s uggest chronic microvascular ischemic disease. Mildly motion degradation limits evaluation of the pos terior fossa. The calvarium is intact. Trace right mastoid effusion. Left mastoid air cells and paranasal sinuses are clear. Unremarkable soft tissues. Prior bilateral lens repair. IMPRESSION: No acute intracranial abnormality. ACT 112: Negative or not required by law. The above report was generated using voice recognition software. It may contain grammatical, syntax o r spelling errors. Electronically signed by: Stephen Rebolledo M.D. 08/25/2021 2:58 PM
--- NOTE | 2021-08-25 15:00 | Emergency Department Note ---
Impression & Plan Stroke ADMIT ED Provider Note HPI: The patient is a 75-year-old female with history of follicular lymphoma, thrombocytopenia/pancytopenia with anemia, history of DVT no longer on Coumadin secondary to thrombocytopenia, thoracic aortic aneurysm, hypertension, hyperlipidemia, status post port placement in the right internal jugular vein postoperative day #2, presents the emergency department with strokelike symptoms. Per EMS the patient developed some right-sided facial droop that was first noted around 2 PM today, patient's [id number], Laura, later arrived a t the bedside and states that they arrived to the patient's home around noon today, they state that the patient did not seem "right" at that time. Patient reportedly had been very weak, she was having some difficulty with ambulation, she had delayed response to questioning. Family left the house briefly and then returned around 2 PM and the patient was noted to have some right-sided facial droop and right upper extremity weakness. It was unknown when the patient's symptoms actually began. On arrival here to the ED the patient does exhibit some right-sided facial droop, bilateral lower extremity weakness, as well as some right upper extremity drift, she is alert, she is able to follow my commands. She is saturating well on room air however she is noted to be tachycardic in the 180s, EKG appears consistent with atrial fibrillation with RVR. She denies any chest pain, blood pressure stable on arrival. ROS: -Neuro: Strokelike symptoms *10 point review systems was conducted and is otherwise negative unless stated above *Outpatient medications and allergy history reviewed PE: General: Alert, NAD HEENT: Normocephalic, atraumatic, trachea midline Eyes: Extraocular eye movement is intact, no scleral erythema Pulmonary: Clear to auscultation bilaterally, no wheezing Cardio: Tachycardic rate with an irregular rhythm GI: Abdomen is soft, nontender : No suprapubic tenderness MSK: No evidence of trauma or malformation of the extremities, no edema Skin: No evidence of rash Neuro: Alert, right-sided facial droop is noted, there is significant right upper extremity drift with testing against gravity, no drift of the left upper extremity, patient does not have ability to resist against gravity of the bilateral lower extremities, denies any sensory deficits Psychiatric: Cooperative hall monitor: - An order was placed for continuous cardiac monitoring - Patient was noted to be in atrial fibrillation with rate of 181 EKG: Rate: 175 Rhythm: Atrial fibrillation with RVR Intervals: QRS 122 ms, QTC 539 ms, TX unable to assess ST changes: No ST elevation Time: 1511 NIH STROKE SCALE: 1A: Level of consciousness Alert; keenly responsive 0 1B: Ask month and age Both questions right 0 1C: 'Blink eyes' & 'squeeze hands' Performs both tasks 0 2: Horizontal extraocular movements Normal 0 3: Visual bravo No visual loss 0 4: Facial palsy Moderate paralysis (lower face) +2 5A: Left arm motor drift No drift for 10 seconds 0 5B: Right arm motor drift Some effort against gravity +2 6A: Left leg motor drift No effort against gravity +3 6B: Right leg motor drift No effort against gravity +3 7: Limb Ataxia Ataxia in 2 Limbs +2 8: Sensation Normal; no sensory loss 0 9: Language/aphasia Normal; no aphasia 0 10: Dysarthria Normal 0 11: Extinction/inattention No abnormality 0 TOTAL NIH SCORE = 11 Medical Decision Making: Patient presented to the emergency department with symptoms concerning for an acute stroke. On arrival here to the ED the patient does have right-sided facial droop, right upper extremity drift, she has limited movement of the bilateral lower extremities, she is alert, she is saturating well on room air, she has stable blood pressure but she is noted to be tachycardic in the 170s. Patient was taken to CT, CT imaging does not show any evidence of intracranial bleeding, CT angiography does not show any evidence of large vessel occlusion. I discussed the patient's presentation with Dr. Suárez of on-call neurology/stroke [facility], she is in agreement with me that at this time given the patient's history of thrombocytopenia with platelet counts in the 40s she would not be considered a TPA candidate. Patient is noted to be in new onset atrial fibrillation with RVR, blood pressure stable, she was given a bolus of diltiazem and started on a drip with minimal response, she was given 2 separate boluses of metoprolol and then did convert eventually to sinus rhythm with a rate in the 70s. Repeat EKG confirms this. She remained with stable blood pressure throughout. Patient's lab work did resolve and shows a platelet count of 29, she is leukopenic, hemoglobin is 7.0, patient will be transfused and was ordered 2 units packed red blood cells. Chest x-ray does not show any evidence of pneumonia. COVID-19 testing is negative. Patient was febrile on arrival, she is leukopenic, blood cultures were drawn, she was started on broad-spectrum antibiotics with vancomycin and cefepime given her history of leukopenia with fever of unknown origin. I discussed the above findings with the patient and her [id number] at the bedside, patient will be admitted, discussed with the on-call midlevel provider for Bria Mckeon, and patient will be admitted to the service of Dr. Francisco for secondary stroke work-up and MRI imaging. Patient was admitted in stable condition. * Diagnosis: New onset atrial fibrillation with RVR, strokelike episode/symptoms, fever with leukopenia * Disposition: Admission * CRITICAL CARE TIME: 65 min -Management of tachyarrhythmia/atrial fibrillation with RVR requiring multiple rate control medications to be given via IV for stabilization/conversion, time spent at the bedside and management of acute strokelike symptoms requiring NIH stroke scale to be obtained and extra time at the bedside, discussion with other physicians and stroke neurology, arrangement of admission Leonel Juares DO Emergency Medicine Past Med/Surg History Medical History AML (acute myeloblastic leukemia) Asthma Well controlled CKD (chronic kidney disease), stage III COPD (chronic obstructive pulmonary disease) Diverticulitis Hx Esophageal reflux Essential tremor Follicular lymphoma History of DVT (deep vein thrombosis) 2007 > in setting prolonged inactivity from hospital admission HLD (hyperlipidemia) HTN (hypertension) Hypothyroidism Pancreatitis Hx Post-herpetic trigeminal neuralgia Reason for gabapentin Thoracic aortic aneurysm without rupture Ascending thoracic aorta is ectatic up to 4.4 cm (Previously measured 4.1 cm in 2012. Slowly increasing in size) per 06/2020 CTA, under surveillance by Dr. Cohn Surgical History H/O parotidectomy (11/2003) H/O: hysterectomy History of bone marrow biopsy (10/2011) Jul 2021 History of cataract surgery bilat History of colonoscopy (02/16/19) History of cystoscopy (06/02/12) History of dilatation and curettage History of ERCP (06/21/08) History of esophagogastroduodenoscopy (EGD) (03/06/16) History of excision of lesion (04/02/21) Right Superficial Parotid S/P cholecystectomy S/P insertion of IVC (inferior vena caval) filter (06/26/12) 2012 > [place] Filter Placement Right Groin Dr. Srivastava at [facility] Status post excisional biopsy (07/07/17) Left Inguinal Lymph Node Dr. Anderson at [facility] Status post fine needle aspiration (04/05/21) Left External Iliac Lymph Node under US[facility] Dr. Coreas at [facility] Status post fine needle aspiration (02/08/19) Right Parotid Gland Lesion Family History Grandmother (Maternal) , Passed Age 52 due to Colon Cancer No problems noted. Father , Passed Age 72 due to Lung Cancer, occupation related No problems noted. Mother , Passed Age 84 of unknown cancer No problems noted. Brother , Passed Age 70 of unknown cancer No problems noted. Brother No problems noted. Daughter CLL (chronic lymphocytic leukemia) Son No problems noted. Son No problems noted. Son No problems noted. Aunt , Passed Age 70 due to Breast Cancer No problems noted. Other Cancer Hypertension Social History Smoking Status: Never smoker Second Hand Exposure: No; Hx Alcohol Use: No Hx Substance Use: No Preferred Language: Palauan Communication Ability: Effective Visual Impairment: Limited Hearing Ability: Normal Infection Prevention Coordinator Required: No Beliefs That Will Affect Care: None marital status: / Current Living Situation: Alone current occupational status: retired current occupation: Retired [employer] How many Children do You have: 4 Feels Safe at Home: Yes Childhood Exposure to Second-Hand Smoke: Yes (father smoked in home) caffeine: Yes (cola daily) during the past year weight has: remained stable Dental Care, Regularly: Yes Physical Activity Frequency: Does not Exercise Assistive Devices: Cane and Glasses Allergies Allergies Allergy/AdvReac Type Severity Reaction Status Date / Time No Known Allergies Allergy Verified 08/25/21 14:57 Home Meds Home Medications Medication Instructions Recorded Confirmed fluticasone propionate 50 2 spray INTRANASAL QAM 08/03/19 08/25/21 mcg/actuation nasal spray,suspension (Flonase Allergy Relief) gabapentin 300 mg capsule 300 mg PO QID 08/03/19 08/25/21 (Neurontin) levothyroxine 112 mcg tablet 112 mcg PO QAM 08/03/19 08/25/21 (Synthroid) pantoprazole 40 mg tablet,delayed 40 mg PO QAM 08/03/19 08/25/21 release (Protonix) rosuvastatin 40 mg tablet (Crestor) 40 mg PO HS 08/03/19 08/25/21 venlafaxine 75 mg capsule,extended 75 mg PO HS 08/03/19 08/25/21 release 24 hr (Effexor XR) diclofenac sodium 1 % topical gel 4 g TOPICAL QID PRN 10/21/19 08/25/21 (Voltaren Arthritis Pain) fluticasone furoate 100 1 inh INHALATION QAM PRN 05/02/21 08/25/21 mcg-vilanterol 25 mcg/dose inhalation powder (Breo Ellipta) hydrochlorothiazide 12.5 mg capsule 12.5 mg PO DAILY PRN 07/03/21 08/25/21 Previous Rx's Medication Instructions Recorded oxycodone-acetaminophen 5 mg-325 1 tab PO Q6H PRN #14 tab 08/23/21 mg tablet (Percocet) Results & Data (ED) Vital Signs Vital Signs - 24 hr 08/25/21 14:45 08/25/21 15:19 08/25/21 15:25 Temperature 38.7 C H Temperature Source Oral Pulse Rate 181 H 159 H Pulse Rate from SpO2 Sensor 155 H Respiratory Rate 18 42 H Respiratory Depth Normal Blood Pressure 167/82 H Blood Pressure Mean 110 Pulse Oximetry 92 94 100 Oxygen Delivery Method Room Air Nasal Cannula Nasal Cannula Oxygen Flow Rate 2 2 Sepsis Recent Fever Within 48 Hours No Sepsis New/Unexplained Change in Mental Status No Sepsis Action Taken by Nursing Physician Notified 08/25/21 15:30 08/25/21 15:45 08/25/21 15:49 Temperature Temperature Source Pulse Rate 174 H 172 H 170 H Pulse Rate from SpO2 Sensor 165 H 166 H Respiratory Rate 34 H 31 H Respiratory Depth Blood Pressure 154/88 H Blood Pressure Mean Pulse Oximetry 100 97 Oxygen Delivery Method Nasal Cannula Nasal Cannula Oxygen Flow Rate 2 2 Sepsis Recent Fever Within 48 Hours Sepsis New/Unexplained Change in Mental Status Sepsis Action Taken by Nursing 08/25/21 16:00 08/25/21 16:01 08/25/21 16:15 Temperature 40.8 C H Temperature Source Rectal Pulse Rate 147 H 147 H Pulse Rate from SpO2 Sensor 134 H Respiratory Rate 22 26 H Respiratory Depth Blood Pressure Blood Pressure Mean Pulse Oximetry 99 Oxygen Delivery Method Nasal Cannula Oxygen Flow Rate 2 Sepsis Recent Fever Within 48 Hours Sepsis New/Unexplained Change in Mental Status Sepsis Action Taken by Nursing 08/25/21 16:38 08/25/21 16:44 Temperature 36.9 C Temperature Source Oral Pulse Rate 155 H Pulse Rate from SpO2 Sensor Respiratory Rate Respiratory Depth Blood Pressure 119/71 Blood Pressure Mean Pulse Oximetry Oxygen Delivery Method Oxygen Flow Rate Sepsis Recent Fever Within 48 Hours Sepsis New/Unexplained Change in Mental Status Sepsis Action Taken by Nursing Laboratory Data Result diagrams: 08/25/21 16:17 08/25/21 15:15 Lab Results 08/25/21 08/25/21 08/25/21 Range/Units 15:15 15:15 15:15 WBC Cancelled RBC Cancelled Hgb Cancelled Hct Cancelled MCV Cancelled MCH Cancelled MCHC Cancelled RDW Std Deviation Cancelled RDW Coeff of Rosamaria Cancelled Plt Count Cancelled MPV Cancelled Immature Gran % (Auto) Cancelled Neut % (Auto) Cancelled Lymph % (Auto) Cancelled [place] % (Auto) Cancelled Eos % (Auto) Cancelled Baso % (Auto) Cancelled Neut # (Auto) Cancelled Lymph # (Auto) Cancelled [place] # (Auto) Cancelled Eos # (Auto) Cancelled Baso # (Auto) Cancelled Immature Gran # (Auto) Cancelled Absolute Nucleated RBC Cancelled Nucleated RBC % (auto) Cancelled Neutrophils % (Manual) Cancelled Band Neutrophils % Cancelled Lymphocytes % (Manual) Cancelled Prolymphocyte % Cancelled Reactive Lymphs % (Man) Cancelled Monocytes % (Manual) Cancelled Eosinophils % (Manual) Cancelled Basophils % (Manual) Cancelled Metamyelocytes % (Man) Cancelled Myelocytes % (Man) Cancelled Promyelocytes % (Man) Cancelled Blast Cells % (Manual) Cancelled Plasma Cell % (Manual) Cancelled Other Cells % Cancelled Nucleated RBC % Cancelled Neutrophils # (Manual) Cancelled Band Neutrophils # Cancelled Total Absolute Neuts Cancelled Lymphocytes # (Manual) Cancelled Prolymphocyte # Cancelled Reactive Lymphs # Cancelled Total Abs Lymphocytes Cancelled Monocytes # (Manual) Cancelled Eosinophils # (Manual) Cancelled Basophils # (Manual) Cancelled Metamyelocytes # (Man) Cancelled Myelocytes # (Manual) Cancelled Promyelocytes # (Man) Cancelled Blast Cells # (Man) Cancelled Plasma Cell # (Manual) Cancelled Other Cells # Cancelled Nucleated RBCs # (Man) Cancelled Hypersegmented Neuts Cancelled Hyposegmented Neuts Cancelled Hypogranular Neuts Cancelled Large Granular Lymphs Cancelled # Lrg Granular Lymphs Cancelled Hairy Cells Cancelled Smudge Cells Cancelled Toxic Granulation Cancelled Toxic Vacuolation Cancelled Dohle Bodies Cancelled Marek Rods Cancelled Platelet Estimate Cancelled Hypogranular Platelets Cancelled Clumped Platelets Cancelled Giant Platelets Cancelled Platelet Satelliting Cancelled RBC Morphology Cancelled Polychromasia Cancelled Hypochromasia Cancelled Poikilocytosis Cancelled Basophilic Stippling Cancelled Anisocytosis Cancelled Microcytosis Cancelled Macrocytosis Cancelled Spherocytes Cancelled Pappenheimer Bodies Cancelled Sickle Cells Cancelled Target Cells Cancelled Tear Drop Cells Cancelled Ovalocytes Cancelled Stomatocytes Cancelled Aguirre-Mayer Bodies Cancelled Echinocytes Cancelled Acanthocytes (Spur) Cancelled Rouleaux Cancelled RBC Agglutinates Cancelled Schistocytes Cancelled RBC Morph Comment Cancelled Sezary Cell Cancelled PT 12.4 H (9.0-12.0) Seconds INR 1.2 H (0.9-1.1) APTT 23.2 (21.0-31.0) Seconds PTT Ratio 0.9 Sodium (136-145) mmol/L Potassium (3.5-5.1) mmol/L Chloride (98-107) mmol/L Carbon Dioxide (21-32) mmol/L Anion Gap (3-11) BUN (7-18) mg/dl Creatinine (0.6-1.2) mg/dl Est Cr Clr Drug Dosing Est GFR ( Amer) ml/min Est GFR (Non-Af Amer) ml/min BUN/Creatinine Ratio (10-20) Glucose (70-99) mg/dl Lactate (0.4-2.0) mmol/L Calcium (8.5-10.1) mg/dl Magnesium (1.8-2.4) mg/dl Total Bilirubin (0.2-1) mg/dl AST (15-37) U/L ALT (12-78) U/L Alkaline Phosphatase (45-117) U/L Troponin I (0-0.045) ng/ml Total Protein (6.4-8.2) gm/dl Albumin (3.4-5.0) gm/dl Globulin (2.5-4.0) gm/dl Albumin/Globulin Ratio (0.9-2) Urine Color Urine Appearance (Clear) Urine pH (4.5-7.5) Ur Specific [place] (1.000-1.030) Urine Protein (Negative) Urine Glucose (UA) (Negative) Urine Ketones (Negative) Urine Blood (Negative) Urine Nitrite (Negative) Urine Bilirubin (Negative) Urine Urobilinogen (Negative) Ur Leukocyte Esterase (Negative) Urine WBC (Auto) (0-5) /hpf Urine RBC (Auto) (0-4) /hpf U Hyaline Cast (Auto) (0-5) /lpf U Epithel Cells (Auto) (0-5) /lpf Urine Bacteria (Auto) (Negative) COVID-19 Eval Order SARS-CoV-2 (PCR) (Negative) Blood Type A Positive Antibody Screen NEGATIVE Crossmatch See Detail 08/25/21 08/25/21 08/25/21 Range/Units 15:15 15:21 15:21 WBC RBC Hgb Hct MCV MCH MCHC RDW Std Deviation RDW Coeff of Rosamaria Plt Count MPV Immature Gran % (Auto) Neut % (Auto) Lymph % (Auto) [place] % (Auto) Eos % (Auto) Baso % (Auto) Neut # (Auto) Lymph # (Auto) [place] # (Auto) Eos # (Auto) Baso # (Auto) Immature Gran # (Auto) Absolute Nucleated RBC Nucleated RBC % (auto) Neutrophils % (Manual) Band Neutrophils % Lymphocytes % (Manual) Prolymphocyte % Reactive Lymphs % (Man) Monocytes % (Manual) Eosinophils % (Manual) Basophils % (Manual) Metamyelocytes % (Man) Myelocytes % (Man) Promyelocytes % (Man) Blast Cells % (Manual) Plasma Cell % (Manual) Other Cells % Nucleated RBC % Neutrophils # (Manual) Band Neutrophils # Total Absolute Neuts Lymphocytes # (Manual) Prolymphocyte # Reactive Lymphs # Total Abs Lymphocytes Monocytes # (Manual) Eosinophils # (Manual) Basophils # (Manual) Metamyelocytes # (Man) Myelocytes # (Manual) Promyelocytes # (Man) Blast Cells # (Man) Plasma Cell # (Manual) Other Cells # Nucleated RBCs # (Man) Hypersegmented Neuts Hyposegmented Neuts Hypogranular Neuts Large Granular Lymphs # Lrg Granular Lymphs Hairy Cells Smudge Cells Toxic Granulation Toxic Vacuolation Dohle Bodies Marek Rods Platelet Estimate Hypogranular Platelets Clumped Platelets Giant Platelets Platelet Satelliting RBC Morphology Polychromasia Hypochromasia Poikilocytosis Basophilic Stippling Anisocytosis Microcytosis Macrocytosis Spherocytes Pappenheimer Bodies Sickle Cells Target Cells Tear Drop Cells Ovalocytes Stomatocytes Aguirre-Mayer Bodies Echinocytes Acanthocytes (Spur) Rouleaux RBC Agglutinates Schistocytes RBC Morph Comment Sezary Cell PT (9.0-12.0) Seconds INR (0.9-1.1) APTT (21.0-31.0) Seconds PTT Ratio Sodium 134 L (136-145) mmol/L Potassium 3.4 L (3.5-5.1) mmol/L Chloride 101 (98-107) mmol/L Carbon Dioxide 24 (21-32) mmol/L Anion Gap 9.0 (3-11) BUN 15 (7-18) mg/dl Creatinine 1.08 (0.6-1.2) mg/dl Est Cr Clr Drug Dosing Not Reportable Est GFR ( Amer) 57.7 ml/min Est GFR (Non-Af Amer) 49.8 ml/min BUN/Creatinine Ratio 14.1 (10-20) Glucose 132 H (70-99) mg/dl Lactate (0.4-2.0) mmol/L Calcium 8.1 L (8.5-10.1) mg/dl Magnesium 2.1 (1.8-2.4) mg/dl Total Bilirubin 1.6 H (0.2-1) mg/dl AST 12 L (15-37) U/L ALT 11 L (12-78) U/L Alkaline Phosphatase 76 (45-117) U/L Troponin I 0.030 (0-0.045) ng/ml Total Protein 6.0 L (6.4-8.2) gm/dl Albumin 2.8 L (3.4-5.0) gm/dl Globulin 3.2 (2.5-4.0) gm/dl Albumin/Globulin Ratio 0.9 (0.9-2) Urine Color Urine Appearance (Clear) Urine pH (4.5-7.5) Ur Specific [place] (1.000-1.030) Urine Protein (Negative) Urine Glucose (UA) (Negative) Urine Ketones (Negative) Urine Blood (Negative) Urine Nitrite (Negative) Urine Bilirubin (Negative) Urine Urobilinogen (Negative) Ur Leukocyte Esterase (Negative) Urine WBC (Auto) (0-5) /hpf Urine RBC (Auto) (0-4) /hpf U Hyaline Cast (Auto) (0-5) /lpf U Epithel Cells (Auto) (0-5) /lpf Urine Bacteria (Auto) (Negative) COVID-19 Eval Order Covid19 at [facility] SARS-CoV-2 (PCR) NEGATIVE (Negative) Blood Type Antibody Screen Crossmatch 08/25/21 08/25/21 08/25/21 Range/Units 15:31 15:46 16:17 WBC 2.80 L RBC 2.50 L Hgb 7.0 L Hct 20.7 L* MCV 82.8 MCH 28.0 MCHC 33.8 RDW Std Deviation 46.9 H RDW Coeff of Rosamaria 15.5 H Plt Count 29 L* MPV Immature Gran % (Auto) 1.8 Neut % (Auto) 53.5 Lymph % (Auto) 17.9 [place] % (Auto) 26.4 Eos % (Auto) 0.0 Baso % (Auto) 0.4 Neut # (Auto) 1.50 Lymph # (Auto) 0.50 L [place] # (Auto) 0.74 H Eos # (Auto) 0.00 Baso # (Auto) 0.01 Immature Gran # (Auto) 0.05 H Absolute Nucleated RBC Nucleated RBC % (auto) Neutrophils % (Manual) Band Neutrophils % Lymphocytes % (Manual) Prolymphocyte % Reactive Lymphs % (Man) Monocytes % (Manual) Eosinophils % (Manual) Basophils % (Manual) Metamyelocytes % (Man) Myelocytes % (Man) Promyelocytes % (Man) Blast Cells % (Manual) Plasma Cell % (Manual) Other Cells % Nucleated RBC % Neutrophils # (Manual) Band Neutrophils # Total Absolute Neuts Lymphocytes # (Manual) Prolymphocyte # Reactive Lymphs # Total Abs Lymphocytes Monocytes # (Manual) Eosinophils # (Manual) Basophils # (Manual) Metamyelocytes # (Man) Myelocytes # (Manual) Promyelocytes # (Man) Blast Cells # (Man) Plasma Cell # (Manual) Other Cells # Nucleated RBCs # (Man) Hypersegmented Neuts Hyposegmented Neuts Hypogranular Neuts Large Granular Lymphs # Lrg Granular Lymphs Hairy Cells Smudge Cells Toxic Granulation Toxic Vacuolation Dohle Bodies Marek Rods Platelet Estimate Hypogranular Platelets Clumped Platelets Giant Platelets Platelet Satelliting RBC Morphology Polychromasia Hypochromasia Poikilocytosis Basophilic Stippling Anisocytosis Microcytosis Macrocytosis Spherocytes Pappenheimer Bodies Sickle Cells Target Cells Tear Drop Cells Ovalocytes Stomatocytes Aguirre-Mayer Bodies Echinocytes Acanthocytes (Spur) Rouleaux RBC Agglutinates Schistocytes RBC Morph Comment Sezary Cell PT (9.0-12.0) Seconds INR (0.9-1.1) APTT (21.0-31.0) Seconds PTT Ratio Sodium (136-145) mmol/L Potassium (3.5-5.1) mmol/L Chloride (98-107) mmol/L Carbon Dioxide (21-32) mmol/L Anion Gap (3-11) BUN (7-18) mg/dl Creatinine (0.6-1.2) mg/dl Est Cr Clr Drug Dosing Est GFR ( Amer) ml/min Est GFR (Non-Af Amer) ml/min BUN/Creatinine Ratio (10-20) Glucose (70-99) mg/dl Lactate 1.7 (0.4-2.0) mmol/L Calcium (8.5-10.1) mg/dl Magnesium (1.8-2.4) mg/dl Total Bilirubin (0.2-1) mg/dl AST (15-37) U/L ALT (12-78) U/L Alkaline Phosphatase (45-117) U/L Troponin I (0-0.045) ng/ml Total Protein (6.4-8.2) gm/dl Albumin (3.4-5.0) gm/dl Globulin (2.5-4.0) gm/dl Albumin/Globulin Ratio (0.9-2) Urine Color Dark Yellow Urine Appearance Clear (Clear) Urine pH 5.0 (4.5-7.5) Ur Specific [place] 1.023 (1.000-1.030) Urine Protein 2+ H (Negative) Urine Glucose (UA) Negative (Negative) Urine Ketones 1+ H (Negative) Urine Blood 3+ H (Negative) Urine Nitrite Negative (Negative) Urine Bilirubin 1+ H (Negative) Urine Urobilinogen Negative (Negative) Ur Leukocyte Esterase Negative (Negative) Urine WBC (Auto) 1-5 (0-5) /hpf Urine RBC (Auto) 5-10 H (0-4) /hpf U Hyaline Cast (Auto) 5-10 H (0-5) /lpf U Epithel Cells (Auto) 10-20 H (0-5) /lpf Urine Bacteria (Auto) Negative (Negative) COVID-19 Eval Order SARS-CoV-2 (PCR) (Negative) Blood Type Antibody Screen Crossmatch Administered Medications Diltiazem HCl 125 mg/ Dextrose 125 mls @ 10 mls/hr IV .[id number] [facility]; Protocol Stop: 09/24/21 15:29 Last Titration: 08/25/21 15:45 Dose: 10 mg/hr, 10 mls/hr Documented by: [id number] Cosigned by: [id number] Admin: 08/25/21 15:32 Dose: 5 mg/hr, 5 mls/hr Documented by: [id number] Cosigned by: [id number] Discontinued Medications Acetaminophen (Acetaminophen 1000 Mg/100 Ml Iv) 1,000 mg IV ONCE ONE Stop: 08/25/21 15:58 Last Admin: 08/25/21 16:05 Dose: 1,000 mg Documented by: [id number] Diltiazem HCl (Diltiazem Hcl 5 Mg/Ml 5 Ml Vial) Confirm Administered Dose 25 mg IV .STK-MED ONE Stop: 08/25/21 15:14 Last Increment: 08/25/21 15:15 Dose: 15 mg Documented by: [id number] Cosigned by: [id number] Diltiazem HCl (Diltiazem Hcl 5 Mg/Ml 5 Ml Vial) 15 mg IV NOW STA Stop: 08/25/21 15:20 Last Admin: 08/25/21 15:32 Dose: Not Given Documented by: [id number] Sodium Chloride (Nss 1000ml) 1,000 mls @ 999 mls/hr IV .[id number] ONE Stop: 08/25/21 16:19 Last Infusion: 08/25/21 16:24 Dose: 0 mls/hr Documented by: [id number] Admin: 08/25/21 15:32 Dose: 999 mls/hr Documented by: [id number] Cefepime HCl (Maxipime) 2,000 mg in 20 mls @ 5 mls/min IV NOW STA; Protocol Stop: 08/25/21 17:02 Last Admin: 08/25/21 17:21 Dose: 5 mls/min Documented by: [id number] Ioversol (Optiray 320 125ml) 120 ml IV ONCE ONE Stop: 08/25/21 15:08 Last Admin: 08/25/21 15:07 Dose: 120 ml Documented by: [id number] Metoprolol Tartrate (Metoprolol Tartrate 1 Mg/Ml Vial) 5 mg IV NOW STA Stop: 08/25/21 15:46 Last Admin: 08/25/21 15:49 Dose: 5 mg Documented by: [id number] Metoprolol Tartrate (Metoprolol Tartrate 1 Mg/Ml Vial) 5 mg IV NOW STA Stop: 08/25/21 16:26 Last Admin: 08/25/21 16:38 Dose: 5 mg Documented by: [id number] Miscellaneous (Stat Iv Infusion Titration Per Protocol) 1 ea N/A NOW STA Stop: 08/25/21 15:19 Last Admin: 08/25/21 15:50 Dose: 1 ea Documented by: [id number] Imaging Data Radiologist's Impression: Chest X-Ray 08/25/21 14:42 XR chest 1V portable HISTORY: 75 years-old Female Stroke Like Symptoms acute strokelike symptoms COMPARISON: Chest radiograph 08/23/2021 TECHNIQUE: Portable AP view the chest FINDINGS: Cardiac silhouette is enlarged. Right IJ central venous catheter. Pulmonary vascular congestion with decreased interstitial coarsening. Possible trace left pleural effusion. No pneumothorax. Degenerative changes of the shoulders and spine. IMPRESSION: Cardiomegaly with mildly decreased pulmonary edema. ACT 112: Negative or not required by law. The above report was generated using voice recognition software. It may contain grammatical, syntax or spelling errors. Electronically signed by: Stephen Rebolledo M.D. 08/25/2021 3:[address] 08/25/21 14:42 CT head/brain wo con CLINICAL HISTORY: 75 years-old Female with Stroke Like Symptoms. Acute strokelike symptoms TECHNIQUE: Multiple axial CT images of the head were obtained without contrast. A dose lowering technique was utilized adhering to the principles of ALARA. COMPARISON: Head CT 08/03/2019 FINDINGS: No acute intracranial hemorrhage, midline shift, intracranial mass, hydrocephalus, territorial ischemia or abnormal extra-axial collection. Age- related involutional changes. White matter hypodensities suggest chronic microvascular ischemic disease. Mildly motion degradation limits evaluation of the posterior fossa. The calvarium is intact. Trace right mastoid effusion. Left mastoid air cells and paranasal sinuses are clear. Unremarkable soft tissues. Prior bilateral lens repair. IMPRESSION: No acute intracranial abnormality. ACT 112: Negative or not required by law. The above report was generated using voice recognition software. It may contain grammatical, syntax or spelling errors. Electronically signed by: Stephen Rebolledo M.D. 08/25/2021 2:58 PM Head CTA 08/25/21 14:42 CT angio neck with con, CT angio head w con CLINICAL HISTORY: 75 years-old Female with Stroke Like Symptoms. Acute strokelike symptoms COMPARISON STUDY: Head CT of same day, fluoroscopic images 08/23/2021. TECHNIQUE: Following the IV administration of 120 of Optiray, CT angiogram of the head and neck was performed from the aortic arch to the skull apex. Images are reviewed in the axial, sagittal, and coronal planes. 3-D MIPS images are created and assessed. IV contrast was administered without complication. All measurements were calculated based on NASCET criteria. A dose lowering techniqu e was utilized adhering to the principles of ALARA. CT DOSE: 1435.22 mGy.cm FINDINGS: Atherosclerosis of the thoracic aorta with aberrant retroesophageal course of the right subclavian artery. Prominent atherosclerotic plaque at the origin of the left subclavian artery results in approximately 70% stenosis. The innominate and an image right subclavian artery appear patent. Patent common carotid arteries. Moderate atherosclerotic plaque of the left carotid bulb and proximal left ICA without high-grade stenosis. The internal carotid arteries are patent bilaterally. The middle and anterior cerebral arteries are patent. Codominant a nd patent vertebral arteries. The basilar and posterior cerebral arteries are patent. No aneurysm, dissection, high-grade stenosis or arterial occlusion. Cerebral venous sinuses are patent. The lung apices are generally clear. No pneumothorax. Right IJ Xzwvbk-t-Qdyz catheter with surrounding subcutaneous and deep tissue edema. Degenerative changes of the cervical spine. Postoperative changes of the paranasal sinuses. IMPRESSION: 1. Atherosclerotic plaque of the thoracic aortic arch results in high-grade stenosis at the origin of the left subclavian artery. 2. Aberrant course of the right subclavian artery. 3. Otherwise unremarkable CTA of the head and neck. ACT 112: Negative or not required by law. The above report was generated using voice recognition software. It may contain grammatical, syntax or spelling errors. Electronically signed by: Stepehn Rebolledo M.D. 08/25/2021 3:33 PM Neck CTA 08/25/21 14:42 CT angio neck with con, CT angio head w con CLINICAL HISTORY: 75 years-old Female with Stroke Like Symptoms. Acute strokelike symptoms COMPARISON STUDY: Head CT of same day, fluoroscopic images 08/23/2021. TECHNIQUE: Following the IV administration of 120 of Optiray, CT angiogram of the head and neck was performed from the aortic arch to the skull apex. Images are reviewed in the axial, sagittal, and coronal planes. 3-D MIPS images are created and assessed. IV contrast was administered without complication. All measurements were calculated based on NASCET criteria. A dose lowering technique was utilized adhering to the principles of ALARA. CT DOSE: 1435.22 mGy.cm FINDINGS: Atherosclerosis of the thoracic aorta with aberrant retroesophageal course of the right subclavian artery. Prominent atherosclerotic plaque at the origin of the left subclavian artery results in approximately 70% stenosis. The innominate and an image right subclavian artery appear patent. Patent common carotid arteries. Moderate atherosclerotic plaque of the left carotid bulb and proximal left ICA without high-grade stenosis. The internal carotid arteries are patent bilaterally. The middle and anterior cerebral arteries are patent. Codominant and patent vertebral arteries. The basilar and posterior cerebral arteries are patent. No aneurysm, dissection, high-grade stenosis or arterial occlusion. Cerebral venous sinuses are patent. The lung apices are generally clear. No pneumothorax. Right IJ Jajrru-k-Sybq catheter with surrounding subcutaneous and deep tissue edema. Degenerative changes of the cervical spine. Postoperative changes of the paranasal sinuses. IMPRESSION: 1. Atherosclerotic plaque of the thoracic aortic arch results in high-grade stenosis at the origin of the left subclavian artery. 2. Aberrant course of the right subclavian artery. 3. Otherwise unremarkable CTA of the head and neck. ACT 112: Negative or not required by law. The above report was generated using voice recognition software. It may contain grammatical, syntax or spelling errors. Electronically signed by: Stephen Rebolledo M.D. 08/25/2021 3:33 PM Hip/Pelvis X-Ray 08/25/21 16:02 XR hip SCOTT 2v w pelvis HISTORY: 75 years-old Female fall acute pelvic and left hip pain status post fall COMPARISON: CT abdomen and pelvis 07/03/2021 TECHNIQUE: AP view of the pelvis with 2 views of the bilateral hips FINDINGS: Contrast within the urinary bladder with Marroquin catheter. Demineralized appearance of the bones. Moderate to severe left with mild to moderate right hip osteoarthritis. No acute fracture, dislocation or avascular necrosis. IMPRESSION: No acute fracture or dislocation. ACT 112: Negative or not required by law. The above report was generated using voice recognition software. It may contain grammatical, syntax or spelling errors. Electronically signed by: Stephen Rebolledo M.D. 08/25/2021 4:51 PM Knee X-Ray 08/25/21 16:24 XR knee LT 3V HISTORY: 75 years-old Female fall acute left knee pain status post fall COMPARISON: None TECHNIQUE: 3 views of the left knee FINDINGS: Demineralized appearance of the bones. Moderate medial and patellofemoral with minimal lateral compartment osteoarthritis. Spurring of the tibial spines. No acute fracture, dislocation or large joint effusion. Soft tissue swelling is most pronounced anteromedially. IMPRESSION: 1. Soft tissue swelling without acute fracture. 2. Moderate medial and patellofemoral compartment osteoarthritis. ACT 112: Negative or not required by law. The above report was generated using voice recognition software. It may contain grammatical, syntax or spelling errors. Electronically signed by: Stephen Rebolledo M.D. 08/25/2021 4:48 PM Discharge Plan Visit Data Chief Complaint: Stroke Alert ED Provider: Loenel Juaers Discharge Problem: Stroke Forms Stand Alone Forms: [employer] Prescriptions Prescriptions: No Action Breo Ellipta 100-25 mcg/dose blister with device 1 inh inhalation QAM PRN (Reason: Shortness Of Breath Or Wheezing) RF: 0 venlafaxine [Effexor XR] 75 mg capsule,extended release 24hr 75 mg PO HS RF: 0 pantoprazole [Protonix] 40 mg tablet,delayed release (DR/EC) 40 mg PO QAM RF: 0 levothyroxine [Synthroid] 112 mcg tablet 112 mcg PO QAM RF: 0 rosuvastatin [Crestor] 40 mg tablet 40 mg PO HS RF: 0 gabapentin [Neurontin] 300 mg capsule 300 mg PO QID RF: 0 fluticasone propionate [Flonase Allergy Relief] 50 mcg/actuation [place],Suspension 2 spray INTRANASAL QAM RF: 0 diclofenac sodium [Voltaren Arthritis Pain] 1 % gel 4 g TOPICAL QID PRN (Reason: Pain) RF: 0 oxycodone-acetaminophen [Percocet] 5-325 mg tablet 1 tab PO Q6H PRN (Reason: pain) Qty: 14 RF: 0 hydrochlorothiazide 12.5 mg capsule 12.5 mg PO DAILY PRN (Reason: Edema) RF: 0 Referrals Referrals: Flor Rubio DO [Primary Care Provider] - Discharge Problem: Stroke Qualifiers: CVA mechanism: unspecified Qualified Code(s): I63.9 - Cerebral infarction, unspecified
[2021-08-25] MEDS ORDERED: OPTIRAY 320 125ml IV ONE (15:07)
[2021-08-25] MEDS ORDERED: dilTIAZem HCl 5 MG/ML 5 ML VIAL IV ONE (15:13)
[2021-08-25] MEDS ORDERED: STAT IV Infusion **Titration per Protocol STA (15:18)
[2021-08-25] MEDS ORDERED: SODIUM CHLORIDE 0.9% 1000ML 1,000 ML IV ONE (15:19)
[2021-08-25] MEDS ORDERED: dilTIAZem HCl 5 MG/ML 5 ML VIAL IV STA (15:19)
[2021-08-25] MEDS: dilTIAZem HCL 125 MG in DEXTROSE 5% 100 ML IV SCH (15:32)
--- NOTE | 2021-08-25 15:35 | CT Scan Report ---
CT angio neck with con, CT angio head w con CLINICAL HISTORY: 75 years-old Female with Stroke Like Symptoms. Acute strokelike symptoms COMPARISON STUDY: Head CT of same day, fluoroscopic images 08/23/2021. TECHNIQUE: Following the IV administration of 120 of Optiray, CT angiogram of the head and neck was p erformed from the aortic arch to the skull apex. Images are reviewed in the axial, sagittal, and rima nal planes. 3-D MIPS images are created and assessed. IV contrast was administered without complicati on. All measurements were calculated based on NASCET criteria. A dose lowering technique was utilize d adhering to the principles of ALARA. CT DOSE: 1435.22 mGy.cm FINDINGS: Atherosclerosis of the thoracic aorta with aberrant retroesophageal course of the right subclavian ar bonita. Prominent atherosclerotic plaque at the origin of the left subclavian artery results in approxi mately 70% stenosis. The innominate and an image right subclavian artery appear patent. Patent common carotid arteries. Moderate atherosclerotic plaque of the left carotid bulb and proximal left ICA wit hout high-grade stenosis. The internal carotid arteries are patent bilaterally. The middle and anteri or cerebral arteries are patent. Codominant and patent vertebral arteries. The basilar and posterior cerebral arteries are patent. No aneurysm, dissection, high-grade stenosis or arterial occlusion. Cer ebral venous sinuses are patent. The lung apices are generally clear. No pneumothorax. Right IJ Xtnldm-n-Ahgw catheter with surroundin g subcutaneous and deep tissue edema. Degenerative changes of the cervical spine. Postoperative valerio es of the paranasal sinuses. IMPRESSION: 1. Atherosclerotic plaque of the thoracic aortic arch results in high-grade stenosis at the origin of the left subclavian artery. 2. Aberrant course of the right subclavian artery. 3. Otherwise unremarkable CTA of the head and neck. ACT 112: Negative or not required by law. The above report was generated using voice recognition software. It may contain grammatical, syntax o r spelling errors. Electronically signed by: Stephen Rebolledo M.D. 08/25/2021 3:33 PM
--- NOTE | 2021-08-25 15:36 | XRay Report ---
XR chest 1V portable HISTORY: 75 years-old Female Stroke Like Symptoms acute strokelike symptoms COMPARISON: Chest radiograph 08/23/2021 TECHNIQUE: Portable AP view the chest FINDINGS: Cardiac silhouette is enlarged. Right IJ central venous catheter. Pulmonary vascular congestion with decreased interstitial coarsening. Possible trace left pleural effusion. No pneumothorax. Degenerativ e changes of the shoulders and spine. IMPRESSION: Cardiomegaly with mildly decreased pulmonary edema. ACT 112: Negative or not required by law. The above report was generated using voice recognition software. It may contain grammatical, syntax o r spelling errors. Electronically signed by: Stephen Rebolledo M.D. 08/25/2021 3:35 PM
[2021-08-25 15:38] LABS: INR 1.2 (0.9-1.1); Partial Thromboplastin Ratio 0.9; Partial Thromboplastin Time 23.2 Seconds (21.0-31.0); Prothrombin Time 12.4 Seconds (9.0-12.0)
[2021-08-25] MEDS ORDERED: METOPROLOL TARTRATE 1 MG/ML VIAL IV STA ×2 (15:45→16:25)
[2021-08-25 15:55] LABS: Alanine Aminotransferase 11 U/L (12-78); Albumin Level 2.8 gm/dl (3.4-5.0); Aspartate Aminotransferase 12 U/L (15-37); BUN Creatinine Ratio 14.1 (10-20); Blood Urea Nitrogen 15 mg/dl (7-18); Calcium 8.1 mg/dl (8.5-10.1); Carbon Dioxide 24 mmol/L (21-32); Chloride 101 mmol/L (98-107); Est GFR (African American) 57.7 ml/min; Est GFR (Non-African American) 49.8 ml/min; Glucose 132 mg/dl (70-99); Magnesium 2.1 mg/dl (1.8-2.4); Potassium 3.4 mmol/L (3.5-5.1); Sodium 134 mmol/L (136-145)
[2021-08-25 15:57] LABS: Appearance Urine Clear (Clear); Bacteria Urine Automated Negative (Negative); Blood Urine 3+ (Negative); Color Urine Dark Yellow; Glucose Urine UA Negative (Negative); Ketones Urine 1+ (Negative); Leukocyte Esterase Urine Negative (Negative); Nitrite Urine Negative (Negative); Protein Urine 2+ (Negative); Specific Gravity Urine 1.023 (1.000-1.030); Urobilinogen Urine Negative (Negative)
[2021-08-25] MEDS ORDERED: ACETAMINOPHEN 1000 MG/100 ML IV IV ONE (15:57)
[2021-08-25 16:00] LABS: Albumin Globulin Ratio 0.9 (0.9-2); Alkaline Phosphatase 76 U/L (45-117); Bilirubin,Total 1.6 mg/dl (0.2-1); Globulin 3.2 gm/dl (2.5-4.0)
[2021-08-25 16:13] LABS: Bilirubin Urine 1+ (Negative)
--- NOTE | 2021-08-25 16:50 | XRay Report ---
XR knee LT 3V HISTORY: 75 years-old Female fall acute left knee pain status post fall COMPARISON: None TECHNIQUE: 3 views of the left knee FINDINGS: Demineralized appearance of the bones. Moderate medial and patellofemoral with minimal lateral compar tment osteoarthritis. Spurring of the tibial spines. No acute fracture, dislocation or large joint ef fusion. Soft tissue swelling is most pronounced anteromedially. IMPRESSION: 1. Soft tissue swelling without acute fracture. 2. Moderate medial and patellofemoral compartment osteoarthritis. ACT 112: Negative or not required by law. The above report was generated using voice recognition software. It may contain grammatical, syntax o r spelling errors. Electronically signed by: Stephen Rebolledo M.D. 08/25/2021 4:48 PM
[2021-08-25 16:51] LABS: Hematocrit (blood only) 20.7 % (37-47); Mean Corpuscular Hgb Conc 33.8 g/dL (32-36); Mean Corpuscular Volume 82.8 fL (80-100); Platelet Count 29 K/uL (130-400); RDW Coefficient of Variation 15.5 % (11.5-14.5); RDW Standard Deviation 46.9 fL (36.4-46.3)
[2021-08-25 16:52] LABS: Basophils # (auto) 0.01 K/uL (0-0.2); Basophils % (auto) 0.4 %; Immature Granulocytes # (auto) 0.05 K/uL (0.00-0.02); Immature Granulocytes % (auto) 1.8 %; Lymphocytes % (auto) 17.9 %; Monocytes # (auto) 0.74 K/uL (0.11-0.59); Monocytes % (auto) 26.4 %; Neutrophils % (auto) 53.5 %
--- NOTE | 2021-08-25 16:52 | XRay Report ---
XR hip SCOTT 2v w pelvis HISTORY: 75 years-old Female fall acute pelvic and left hip pain status post fall COMPARISON: CT abdomen and pelvis 07/03/2021 TECHNIQUE: AP view of the pelvis with 2 views of the bilateral hips FINDINGS: Contrast within the urinary bladder with Marroquin catheter. Demineralized appearance of the bones. Moder ate to severe left with mild to moderate right hip osteoarthritis. No acute fracture, dislocation or avascular necrosis. IMPRESSION: No acute fracture or dislocation. ACT 112: Negative or not required by law. The above report was generated using voice recognition software. It may contain grammatical, syntax o r spelling errors. Electronically signed by: Stephen Rebolledo M.D. 08/25/2021 4:51 PM
[2021-08-25] MEDS ORDERED: SODIUM CHLORIDE 0.9% 250 ML IV PRN (16:57)
[2021-08-25] MEDS ORDERED: VANCOMYCIN CONSULT ACTIVE PRN (16:59)
[2021-08-25] MEDS ORDERED: CEFEPIME 2,000 MG/20 ML VIAL IV STA (16:59)
[2021-08-25] MEDS ORDERED: VANCOMYCIN HCL 1,000 MG/270 ML BAG IV STA (16:59)
[2021-08-25] MEDS ORDERED: ASPIRIN 300 MG SUPP PR ONE (17:09)
--- NOTE | 2021-08-25 18:26 | History & Physical Report ---
Date of Service August 25, 2021 Assessment & Plan (1) Stroke: Plan: Concerning clinical features consistent with possible stroke. Risk factor would for this would also be atrial fibrillation noted in ER which is new onset. CT head revealed no evidence of stroke. High-grade stenosis at takeoff of left subclavian on CT angiogram. MRI brain ordered overnight. Neurology consult in a.m. echo with bubble study ordered. PT/OT consultations requested. She has significant weakness and should be on fall precautions and aspiration precautions. She is currently remaining n.p.o. for her persistent right facial droop. Speech to evaluate in a.m. (2) Sepsis: Plan: No clear etiology, may not be infectious but rather SIRS syndrome. In setting of neutropenic fever empirically cover with broad-spectrum antibiotics pending culture results and clinical improvement. (3) Atrial fibrillation with rapid ventricular response: Plan: New onset A. fib with rapid ventricular response in setting of high fever, possible CVA, possible sepsis. Pulmonary embolism is a possible cause, however, she would not be able to tolerate a blood thinner with thrombocytopenia and is not working to breathe or reporting chest pain at this time. She is reporting shortness of breath since port placement 2 days ago and will pursue imaging with contrast of the chest if symptoms do not resolve with initial treatment. Again no anticoagulation with ongoing thrombocytopenia. She has converted after diltiazem and metoprolol given in ER and remains in sinus rhythm. If she converts back into atrial fibrillation may consider rate or rhythm strategies as needed overnight. Cardiology consult in a.m. Echocardiogram to rule out structural causes. (4) Neutropenic fever: Plan: ANC around 1500 but may fall. High fever noted. No clear infectious etiology, suspect fever possibly secondary to malignancy, however, empiric antibiotics to cover for sepsis will be given. (5) Follicular lymphoma grade I: Plan: Treatment plan per hematology this week after port placement 2 days ago. This will be delayed and patient is understanding of this. (6) Pancytopenia: Plan: Patient reports being transfusion dependent for the last 2 months. 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 (8) CKD (chronic kidney disease), stage III: Plan: Appears to be at her baseline. Continue to monitor closely (9) Hypothyroidism: Plan: Will obtain TSH with next blood draw. Cont home levothyroxine (10) Symptomatic anemia: Plan: Weakness and palpitations with shortness of breath may be related to anemia. She is currently being transfused 2 units of blood. With evidence of pulmonary edema on CXR, gave Lasix 20mg IV in between units. Monitor lytes and Mg in am. CBC in am. (11) Generalized weakness: Plan: Morbid obesity and generalized deconditioning. Cannot sit up independently in bed. (12) DVT prophylaxis: Plan: SCDs Full Code as discussed with her on admission. 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 She presents with concerns for acute weakness, inability to walk and strokelike symptoms including right facial droop and delayed response to questioning. The patient has a difficult time giving the history but is oriented and answers appropriately. She states that she woke up in her chair this morning with back pain and decided to get into her bed. When she got into her bed she was too weak to get out of her bed and rolled around for a couple of hours per her report. When she finally rolled out of bed she tried walking to the bathroom and subsequently collapsed onto the floor. She reports left hip pain and left knee pain currently. A left knee x- ray revealed soft tissue swelling without acute fracture with osteoarthritis. A bilateral 2 view pelvic x-ray revealed no acute fracture or dislocation. She was able to scoot along the floor to her phone and text her brother who lives 2 doors down. He came over and they called other family members who called EMS. Per ER notes, EMS reports development of right-sided facial droop first noticed around 2 PM. [id number] arrived to patient's home at noon and states she did not seem right at that time. On arrival to the ER she was found to be in atrial fibrillation with rapid ventricular response with a heart rate in the 180s. She was febrile with a rectal temperature of 40.8 C. She reports a recent history of intermittent fevers related to her ongoing cancer. She also reports ongoing night sweats and weight loss. She denies any clear infectious symptoms including no respiratory symptoms or urinary symptoms at this time. She denies any changes in her stools, abdominal pain, chest pain except where her port insertion went in 2 days ago. This is improving. EKG revealed no evidence of ST elevation. The patient denies any palpitations but noticed her heart rate increase in response to the low blood count, and states this is happened before. She was given a bolus of diltiazem and started on a drip with minimal response. She was given 2 separate boluses of metoprolol and then did convert to sinus rhythm with a rate in the 70s. A repeat EKG confirmed this. She remained with stable blood pressure throughout. A head CT was performed revealing no acute intracranial abnormality followed by a CTA of the head and neck which did not reveal evidence of large vessel occlusion. The case was discussed with Dr. Suárez of on-call neurology/stroke [facility]. In light of the ongoing history of thrombocytopenia with a platelet count in the 40s she would not be a TPA candidate. Platelet count in the ER tonight was 29, she is leukopenic and hemoglobin is 7 with a hematocrit of 20. 2 units of blood were ordered and Lasix was given in between these units. COVID-19 testing was negative. In the setting of fever and leukopenia she was given empiric broad-spectrum antibiotics including vancomycin and cefepime. She subsequently is feeling tired but improved. She was scheduled to start chemotherapy treatment on Friday and understands that this will be delayed. Allergies Allergy/AdvReac Type Severity Reaction Status Date / Time No Known Allergies Allergy Verified 08/25/21 14:57 Home Medications Medication Instructions Recorded Confirmed Type fluticasone propionate 50 2 spray INTRANASAL QAM 08/03/19 08/25/21 History mcg/actuation nasal spray,suspension (Flonase Allergy Relief) gabapentin 300 mg capsule 400 mg PO TID 08/03/19 08/25/21 History (Neurontin) levothyroxine 112 mcg tablet 112 mcg PO QAM 08/03/19 08/25/21 History (Synthroid) pantoprazole 40 mg tablet,delayed 40 mg PO QAM 08/03/19 08/25/21 History release (Protonix) rosuvastatin 40 mg tablet (Crestor) 40 mg PO HS 08/03/19 08/25/21 History venlafaxine 75 mg capsule,extended 75 mg PO HS 08/03/19 08/25/21 History release 24 hr (Effexor XR) diclofenac sodium 1 % topical gel 4 g TOPICAL QID PRN 10/21/19 08/25/21 History (Voltaren Arthritis Pain) fluticasone furoate 100 1 inh INHALATION QAM PRN 05/02/21 08/25/21 History mcg-vilanterol 25 mcg/dose inhalation powder (Breo Ellipta) hydrochlorothiazide 12.5 mg capsule 12.5 mg PO DAILY 07/03/21 08/25/21 History oxycodone-acetaminophen 5 mg-325 1 tab PO Q6H PRN #14 tab 08/23/21 08/25/21 Rx mg tablet (Percocet) Past Med/Surg History Medical History AML (acute myeloblastic leukemia) Asthma Well controlled CKD (chronic kidney disease), stage III COPD (chronic obstructive pulmonary disease) Diverticulitis Hx Esophageal reflux Essential tremor Follicular lymphoma History of DVT (deep vein thrombosis) 2007 > in setting prolonged inactivity from hospital admission HLD (hyperlipidemia) HTN (hypertension) Hypothyroidism Pancreatitis Hx Post-herpetic trigeminal neuralgia Reason for gabapentin Thoracic aortic aneurysm without rupture Ascending thoracic aorta is ectatic up to 4.4 cm (Previously measured 4.1 cm in 2012. Slowly increasing in size) per 06/2020 CTA, under surveillance by Dr. Cohn Surgical History H/O parotidectomy (11/2003) H/O: hysterectomy History of bone marrow biopsy (10/2011) Jul 2021 History of cataract surgery bilat History of colonoscopy (02/16/19) History of cystoscopy (06/02/12) History of dilatation and curettage History of ERCP (06/21/08) History of esophagogastroduodenoscopy (EGD) (03/06/16) History of excision of lesion (04/02/21) Right Superficial Parotid S/P cholecystectomy S/P insertion of IVC (inferior vena caval) filter (06/26/12) 2012 > Jordon Filter Placement Right Groin Dr. Srivastava at [facility] Status post excisional biopsy (07/07/17) Left Inguinal Lymph Node Dr. Anderson at [facility] Status post fine needle aspiration (04/05/21) Left External Iliac Lymph Node under USG Dr. Coreas at [facility] Status post fine needle aspiration (02/08/19) Right Parotid Gland Lesion Family History Grandmother (Maternal) , Passed Age 52 due to Colon Cancer No problems noted. Father , Passed Age 72 due to Lung Cancer, occupation related No problems noted. Mother , Passed Age 84 of unknown cancer No problems noted. Brother , Passed Age 70 of unknown cancer No problems noted. Brother No problems noted. Daughter CLL (chronic lymphocytic leukemia) Son No problems noted. Son No problems noted. Son No problems noted. Aunt , Passed Age 70 due to Breast Cancer No problems noted. 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 Physical Exam Physical Exam: CONSTITUTIONAL: WNWD, vitals as above, generally well- appearing EYES: EOMI bilaterally, PERRL, normal conjunctivae, no scleral icterus, +horizontal nystagmus when looking to the left. ENT: external ear and nose normal, oropharynx clear, Right sided facial droop NECK: trachea midline RESPIRATORY: fine crackles on the right lung base, clear on the left, no rales or wheezes, normal respiratory effort CARDIOVASCULAR: regular rate and rhythm, S1 and 2 heard without murmurs, gallops or rubs, no JVD, no peripheral edema CHEST: inspection of chest reveals recent port with fresh IJ site, wound covered with blood-tinged bandage underneath clear dressing. No surrounding erythema. GASTROINTESTINAL: soft, nontender, ND, no guarding MUSCULOSKELETAL: strength 5/5 throughout but generally weak all throughout. No gross focal deficits. Head is NC/AT. SKIN: warm and dry, some TTP of left hip without bruising present. No ecchymosis of the left knee or other evidence of overt trauma. NEUROLOGIC: patellar DTRs could not elicit bilaterally. PERRL, EOMI, +R facial droop, no dysarthria. Touch, pain and proprioception normal. CN 2-12 grossly intact, no sensory deficit, normal cognition, normal speech, slow to respond to questions but can find the right answers with time. no tremor PSYCHIATRIC: alert cooperative and oriented to person, place and time. Results & Data Results & Data ([facility]) Vital Signs (Past 12 Hours) Vital Signs Temp Pulse Resp BP Pulse Ox 08/25/21 18:00 79 16 103/52 L 98 08/25/21 17:00 79 20 112/55 L 98 08/25/21 16:44 36.9 C 08/25/21 16:38 155 H 119/71 08/25/21 16:15 147 H 26 H 99 08/25/21 16:01 40.8 C H 08/25/21 16:00 147 H 22 08/25/21 15:49 170 H 154/88 H 08/25/21 15:45 172 H 31 H 97 08/25/21 15:30 174 H 34 H 100 08/25/21 15:25 100 08/25/21 15:19 159 H 42 H 94 08/25/21 14:45 38.7 C H 181 H 18 167/82 H 92 Laboratory Results Short CBC 08/25/21 08/25/21 Range/Units 15:15 16:17 WBC Cancelled 2.80 L Hgb Cancelled 7.0 L Hct Cancelled 20.7 L* Plt Count Cancelled 29 L* BMP 08/25/21 15:15 Sodium 134 L Potassium 3.4 L Chloride 101 Carbon Dioxide 24 BUN 15 Creatinine 1.08 Glucose 132 H Calcium 8.1 L Cardiac Enzymes 08/25/21 Range/Units 15:15 Troponin I 0.030 (0-0.045) ng/ml Liver Function 08/25/21 Range/Units 15:15 Total Bilirubin 1.6 H (0.2-1) mg/dl AST 12 L (15-37) U/L ALT 11 L (12-78) U/L Alkaline Phosphatase 76 (45-117) U/L Albumin 2.8 L (3.4-5.0) gm/dl Urine 08/25/21 Range/Units 15:46 Urine Color Dark Yellow Urine Appearance Clear (Clear) Urine pH 5.0 (4.5-7.5) Ur Specific Bryan 1.023 (1.000-1.030) Urine Protein 2+ H (Negative) Urine Glucose (UA) Negative (Negative) Diagnostic Findings Chest X-Ray 08/25/21 14:42 XR chest 1V portable HISTORY: 75 years-old Female Stroke Like Symptoms acute strokelike symptoms COMPARISON: Chest radiograph 08/23/2021 TECHNIQUE: Portable AP view the chest FINDINGS: Cardiac silhouette is enlarged. Right IJ central venous catheter. Pulmonary vascular congestion with decreased interstitial coarsening. Possible trace left pleural effusion. No pneumothorax. Degenerative changes of the shoulders and spine. IMPRESSION: Cardiomegaly with mildly decreased pulmonary edema. ACT 112: Negative or not required by law. The above report was generated using voice recognition software. It may contain grammatical, syntax or spelling errors. Electronically signed by: Stephen Rebolledo M.D. 08/25/2021 3:[address] 08/25/21 14:42 CT head/brain wo con CLINICAL HISTORY: 75 years-old Female with Stroke Like Symptoms. Acute strokelike symptoms TECHNIQUE: Multiple axial CT images of the head were obtained without contrast. A dose lowering technique was utilized adhering to the principles of ALARA. COMPARISON: Head CT 08/03/2019 FINDINGS: No acute intracranial hemorrhage, midline shift, intracranial mass, hydrocephalus, territorial ischemia or abnormal extra-axial collection. Age- related involutional changes. White matter hypodensities suggest chronic microvascular ischemic disease. Mildly motion degradation limits evaluation of the posterior fossa. The calvarium is intact. Trace right mastoid effusion. Left mastoid air cells and paranasal sinuses are clear. Unremarkable soft tissues. Prior bilateral lens repair. IMPRESSION: No acute intracranial abnormality. ACT 112: Negative or not required by law. The above report was generated using voice recognition software. It may contain grammatical, syntax or spelling errors. Electronically signed by: Stephen Rebolledo M.D. 08/25/2021 2:58 PM Head CTA 08/25/21 14:42 CT angio neck with con, CT angio head w con CLINICAL HISTORY: 75 years-old Female with Stroke Like Symptoms. Acute strokelike symptoms COMPARISON STUDY: Head CT of same day, fluoroscopic images 08/23/2021. TECHNIQUE: Following the IV administration of 120 of Optiray, CT angiogram of the head and neck was performed from the aortic arch to the skull apex. Images are reviewed in the axial, sagittal, and coronal planes. 3-D MIPS images are created and assessed. IV contrast was administered without complication. All measurements were calculated based on NASCET criteria. A dose lowering technique was utilized adhering to the principles of ALARA. CT DOSE: 1435.22 mGy.cm FINDINGS: Atherosclerosis of the thoracic aorta with aberrant retroesophageal course of the right subclavian artery. Prominent atherosclerotic plaque at the origin of the left subclavian artery results in approximately 70% stenosis. The innominate and an image right subclavian artery appear patent. Patent common carotid arteries. Moderate atherosclerotic plaque of the left carotid bulb and proximal left ICA without high-grade stenosis. The internal carotid arteries are patent bilaterally. The middle and anterior cerebral arteries are patent. Codominant and patent vertebral arteries. The basilar and posterior cerebral arteries are patent. No aneurysm, dissection, high-grade stenosis or arterial occlusion. Cerebral venous sinuses are patent. The lung apices are generally clear. No pneumothorax. Right IJ Igiujs-i-Llbe cat heter with surrounding subcutaneous and deep tissue edema. Degenerative changes of the cervical spine. Postoperative changes of the paranasal sinuses. IMPRESSION: 1. Atherosclerotic plaque of the thoracic aortic arch results in high-grade stenosis at the origin of the left subclavian artery. 2. Aberrant course of the right subclavian artery. 3. Otherwise unremarkable CTA of the head and neck. ACT 112: Negative or not required by law. The above report was generated using voice recognition software. It may contain grammatical, syntax or spelling errors. Electronically signed by: Stephen Rebolledo M.D. 08/25/2021 3:33 PM Neck CTA 08/25/21 14:42 CT angio neck with con, CT angio head w con CLINICAL HISTORY: 75 years-old Female with Stroke Like Symptoms. Acute strokelike symptoms COMPARISON STUDY: Head CT of same day, fluoroscopic images 08/23/2021. TECHNIQUE: Following the IV administration of 120 of Optiray, CT angiogram of the head and neck was performed from the aortic arch to the skull apex. Images are reviewed in the axial, sagittal, and coronal planes. 3-D MIPS images are created and assessed. IV contrast was administered without complication. All measurements were calculated based on NASCET criteria. A dose lowering technique was utilized adhering to the principles of ALARA. CT DOSE: 1435.22 mGy.cm FINDINGS: Atherosclerosis of the thoracic aorta with aberrant retroesophageal course of the right subclavian artery. Prominent atherosclerotic plaque at the origin of the left subclavian artery results in approximately 70% stenosis. The innominate and an image right subclavian artery appear patent. Patent common carotid arteries. Moderate atherosclerotic plaque of the left carotid bulb and proximal left ICA without high-grade stenosis. The internal carotid arteries are patent bilaterally. The middle and anterior cerebral arteries are patent. Codominant and patent vertebral arteries. The basilar and posterior cerebral arteries are patent. No aneurysm, dissection, high-grade stenosis or arterial occlusion. Cerebral venous sinuses are patent. The lung apices are generally clear. No pneumothorax. Right IJ Bcxowf-e-Rljq catheter with surrounding subcutaneous and deep tissue edema. Degenerative changes of the cervical spine. Postoperative changes of the paranasal sinuses. IMPRESSION: 1. Atherosclerotic plaque of the thoracic aortic arch results in high-grade stenosis at the origin of the left subclavian artery. 2. Aberrant course of the right subclavian artery. 3. Otherwise unremarkable CTA of the head and neck. ACT 112: Negative or not required by law. The above report was generated using voice recognition software. It may contain grammatical, syntax or spelling errors. Electronically signed by: Stephen Rebolledo M.D. 08/25/2021 3:33 PM Hip/Pelvis X-Ray 08/25/21 16:02 XR hip SCOTT 2v w pelvis HISTORY: 75 years-old Female fall acute pelvic and left hip pain status post fall COMPARISON: CT abdomen and pelvis 07/03/2021 TECHNIQUE: AP view of the pelvis with 2 views of the bilateral hips FINDINGS: Contrast within the urinary bladder with Marroquin catheter. Demineralized appearance of the bones. Moderate to severe left with mild to moderate right hip osteoarthritis. No acute fracture, dislocation or avascular necrosis. IMPRESSION: No acute fracture or dislocation. ACT 112: Negative or not required by law. The above report was generated using voice recognition software. It may contain grammatical, syntax or spelling errors. Electronically signed by: Stephen Rebolledo M.D. 08/25/2021 4:51 PM Knee X-Ray 08/25/21 16:24 XR knee LT 3V HISTORY: 75 years-old Female fall acute left knee pain status post fall COMPARISON: None TECHNIQUE: 3 views of the left knee FINDINGS: Demineralized appearance of the bones. Moderate medial and patellofemoral with minimal lateral compartment osteoarthritis. Spurring of the tibial spines. No acute fracture, dislocation or large joint effusion. Soft tissue swelling is most pronounced anteromedially. IMPRESSION: 1. Soft tissue swelling without acute fracture. 2. Moderate medial and patellofemoral compartment osteoarthritis. ACT 112: Negative or not required by law. The above report was generated using voice recognition software. It may contain grammatical, syntax or spelling errors. Electronically signed by: Stephen Rebolledo M.D. 08/25/2021 4:48 PM Code Status & VTE Plan Code Status Full code as discussed wtih her on admission. VTE Prophylaxis Plan VTE Prophylaxis will be ordered: Yes (1) Follicular lymphoma grade I Lymphoma site: unspecified region Qualified Code(s): C82.00 - Follicular lymphoma grade I, unspecified site (2) Stroke CVA mechanism: unspecified Qualified Code(s): I63.9 - Cerebral infarction, unspecified
[2021-08-25] MEDS ORDERED: POLYETHYLENE (MIRALAX) 17 GM PACK PO PRN (18:46)
[2021-08-25] MEDS ORDERED: PHARMACIST DISCHARGE MED REC CONSULT PRN (18:46)
[2021-08-25] MEDS ORDERED: PATIENT'S HEIGHT AND/OR WEIGHT NEEDED SCH (19:00)
[2021-08-25] MEDS ORDERED: VANCOMYCIN HCL 1,000 MG/270 ML BAG IV ONE (21:00)
--- NOTE | 2021-08-25 21:02 | Pharmacy Report ---
Pharmacy Vanc AUC Short Note - Date of Service August 25, 2021 - Assessment & Plan Assessment 75 year old F receiving Vancomycin for treatment of empiric therapy. Day # 1 of antimicrobial therapy. Plan Vancomycin * AUC/GLORY is the preferred PK/PD target for vancomycin * AUC guided dosing is effective and associated with decreased risk of nephrotoxicity compared to traditional trough targets * Received 1000mg load 08/25 @ 1742(~10mg/kg), gave additional 1000mg load 08/25 @2100 to equal 20mg/kg load total. * Maintenance dose of 1500mg IV q24h. * Trough level of 15.7 mcg/mL is predicted to achieve target AUC/GLORY of 400-600 mg/L.hr and may be associated with a 11 % risk of nephrotoxicity * Trough level will be ordered if Vanco is to be continued. Pharmacy will continue to follow and will adjust dose/frequency as necessary. Thank you.
[2021-08-25] MEDS ORDERED: FUROSEMIDE 40 MG/4 ML VIAL IV ONE (22:15)
[2021-08-25] MEDS ORDERED: FLUTICASONE/VILANTEROL 100/25MCG 14 PUFFS/INHALER INH PRN (22:43)
[2021-08-25] MEDS ORDERED: CONSULT PHARMACY STA (23:27)
[2021-08-25] MEDS: VENLAFAXINE HCL XR 75 MG CAPXR PO SCH (23:35)
--- NOTE | 2021-08-25 23:40 | Electrocardiogram Report ---
Test Reason : Blood Pressure : / mmHG Vent. Rate : 175 BPM Atrial Rate : 163 BPM P-R Int : 000 ms QRS Dur : 122 ms QT Int : 316 ms P-R-T Axes : 000 -37 022 degrees QTc Int : 539 ms Poor data quality, interpretation may be adversely affected Atrial fibrillation with rapid ventricular response Left axis deviation Right bundle branch block Abnormal ECG When compared with ECG of 03-JUL-2021 12:33, Atrial fibrillation has replaced Sinus rhythm Vent. rate has increased BY [address] now depressed in Anterior leads Confirmed by Joss Pagan ([id number]) on 08/25/2021 11:40:03 PM Referred By: SELF Confirmed By:Joss Pagan
[2021-08-26] MEDS ORDERED: CEFEPIME 2,000 MG in SYRINGE 0 ML IV SCH
[2021-08-26 05:20] LABS: Mean Corpuscular Hgb Conc 34.2 g/dL (32-36)
[2021-08-26 05:37] LABS: BUN Creatinine Ratio 19.1 (10-20); Calcium 8.1 mg/dl (8.5-10.1); Est GFR (African American) 68.3 ml/min; Est GFR (Non-African American) 58.9 ml/min; Magnesium 2.3 mg/dl (1.8-2.4); Potassium 3.3 mmol/L (3.5-5.1)
[2021-08-26] MEDS: CEFEPIME 2,000 MG in SYRINGE 0 ML IV SCH ×2 (05:37→16:57)
[2021-08-26] MEDS: oxyCODONE/ACETAMINOPHEN 5mg/325mg TAB PO PRN ×3 (05:38→21:56)
[2021-08-26 05:48] LABS: Phosphorus 2.5 mg/dl (2.5-4.9); Thyroid Stimulating Hormone 1.64 uIu/ml (0.300-4.500)
[2021-08-26 06:02] LABS: Basophils # (auto) 0.01 K/uL (0-0.2); Basophils % (auto) 0.3 %; Hematocrit (blood only) 26.9 % (37-47); Hemoglobin 9.2 g/dL (12.0-16.0); Immature Granulocytes # (auto) 0.05 K/uL (0.00-0.02); Immature Granulocytes % (auto) 1.5 %; Lymphocytes # (auto) 0.64 K/uL (1.2-3.4); Lymphocytes % (auto) 18.7 %; Mean Corpuscular Hemoglobin 29.1 pg (25-34); Mean Corpuscular Volume 85.1 fL (80-100); Monocytes # (auto) 0.65 K/uL (0.11-0.59); Neutrophils # (auto) 2.08 K/uL (1.4-6.5); Neutrophils % (auto) 60.5 %; Ovalocytes 1+; Platelet Count 35 K/uL (130-400); RDW Coefficient of Variation 15.4 % (11.5-14.5); Red Blood Count 3.16 M/uL (4.2-5.4); White Blood Count 3.43 K/uL (4.8-10.8)
[2021-08-26] MEDS: LEVOTHYROXINE SODIUM 112 MCG TABLET PO SCH (06:18)
[2021-08-26] MEDS: GABAPENTIN 400 MG CAP PO SCH ×3 (08:16→21:54)
[2021-08-26] MEDS: PANTOprazole 40 MG TAB PO SCH (08:16)
[2021-08-26] MEDS: dilTIAZem HCL 125 MG in DEXTROSE 5% 100 ML IV SCH (08:16)
--- NOTE | 2021-08-26 10:13 | Magnetic Resonance Report ---
MRI OF THE BRAIN WITHOUT CONTRAST CLINICAL HISTORY: Stroke like symptoms. Right facial droop.History of lymphoma/leukemia. COMPARISON STUDY: MRI the brain August 03, 2019. Head CT and CTA of the head August 25, 2021. TECHNIQUE: Utilizing a 1.5 Dyana magnet and dedicated coil, multiplanar, multiecho imaging of the bra in was performed without IV contrast. FINDINGS: There are no foci of restricted diffusion to suggest acute infarct. No acute intracranial h emorrhage, midline shift or mass effect is present. Ventricular system is unremarkable. Basal cistern s are patent. There are no extra-axial collections. Flow-voids for the major intracranial vessels are present. No intracranial masses identified on this unenhanced exam. Multiple small white matter T2 h yperintense foci are similar to MRI of August 03, 2019. Note is made of diminished T1 marrow signal within the calvarium, clivus and visualized portions of the cervical spine. This is new since previou s MRI. IMPRESSION: 1. No acute intracranial findings. 2. Interval development of marrow signal abnormality since MRI of August 03, 2019. This is likely co nsistent with the history of lymphoma/leukemia. ACT 112: Negative or not required by law. Electronically signed by: Stevenson Coreas M.D. 08/26/2021 10:12 AM
--- NOTE | 2021-08-26 11:10 | Electrocardiogram Report ---
Test Reason : Blood Pressure : / mmHG Vent. Rate : 078 BPM Atrial Rate : 078 BPM P-R Int : 160 ms QRS Dur : 124 ms QT Int : 412 ms P-R-T Axes : 052 -18 035 degrees QTc Int : 469 ms Poor data quality, interpretation may be adversely affected Normal sinus rhythm Right bundle branch block Abnormal ECG When compared with ECG of 25-AUG-2021 15:11, Sinus rhythm has replaced Atrial fibrillation Vent. rate has decreased BY [address] no longer depressed in Anterior leads Nonspecific T wave abnormality no longer evident in Lateral leads Confirmed by Juan Atkinson ([id number]) on 08/26/2021 11:09:51 AM Referred By: REFERRED SELF Confirmed By:Juan Atkinson
--- NOTE | 2021-08-26 12:11 | Hospitalist Progress Note ---
Date of Service August 26, 2021 Assessment & Plan (1) Stroke: Plan: Ruled out on imaging overnight. Patient is clinically improved. There is clear concern for [employer] involvement of lymphoma causing her symptoms. Consideration for LP should be given. Will defer to neuro for safety of performing this and will need a platelet trasnfusion to >50K prior to performing this. That being said, we do not have the ability to given intrathecal chemotherapy as there is no oncology support here. Transfer to tertiary care is warranted. Initiating transfer request today. Discussed the case with her Oncologist, Dr. Saucedo, who is aware of the situation and agrees with the plan. He understands she will not be present for her scheduled treatment tomorrow. Concerning clinical features consistent with possible stroke. Risk factor would for this would also be atrial fibrillation noted in ER which is new onset. CT head revealed no evidence of stroke. High-grade stenosis at takeoff of left subclavian on CT angiogram. MRI brain ordered overnight. Neurology consult in a.m. echo with bubble study ordered. PT/OT consultations requested. She has significant weakness and should be on fall precautions and aspiration precautions. She is currently remaining n.p.o. for her persistent right facial droop. Speech to evaluate in a.m. (2) Sepsis: Plan: No clear etiology, may not be infectious but rather SIRS syndrome. Concern for possible port infection? as patient felt different after recent placement of this. Pain in surgical site is improved and blood cultures are still pending. In setting of neutropenic fever empirically cover with broad-spectrum antibiotics pending culture results and clinical improvement. Cont Vanc/Cefepime. (3) Atrial fibrillation with rapid ventricular response: Plan: New onset A. fib with rapid ventricular response in setting of high fever, possible CVA, possible sepsis. Pulmonary embolism is a possible cause, however, she would not be able to tolerate a blood thinner with thrombocytopenia and is not working to breathe or reporting chest pain at this time. She is reporting shortness of breath since port placement 2 days ago and will pursue imaging with contrast of the chest if symptoms do not resolve with initial treatment. Again no anticoagulation with ongoing thrombocytopenia. She has converted after diltiazem and metoprolol given in ER and remains in sinus rhythm overnight. If she converts back into atrial fibrillation may consider rate or rhythm strategies as needed overnight. Echocardiogram completed. (4) Neutropenic fever: Plan: ANC improved to 2000. No clear infectious etiology, suspect fever possibly secondary to malignancy, but port may be another cause. Cont Vanc/Cefepime. (5) Follicular lymphoma grade I: Plan: Treatment plan per hematology this week after port placement 2 days ago. This will be delayed and patient is understanding of this. Dr. Saucedo was updated this morning. (6) Pancytopenia: Plan: Patient reports being transfusion dependent for the last 2 months. 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 Hb appropriately responded to blood given. (7) History of DVT (deep vein thrombosis): Plan: Off Coumadin secondary to thrombocytopenia. (8) CKD (chronic kidney disease), stage III: Plan: Appears to be at her baseline. Continue to monitor closely (9) Hypothyroidism: Plan: TSH within normal limits. Cont home levothyroxine (10) Symptomatic anemia: Plan: Transfused 2 units of blood with some improvement but still appears poor clinically. Cont to trend CBC (11) Generalized weakness: Plan: Morbid obesity and generalized deconditioning. Cannot sit up independently in bed. (12) DVT prophylaxis: Plan: SCDs Full Code as discussed with her on admission. Dispo-cont PCU monitoring and consider transfer to [facility] but would like to discuss this with daughter first. Patient is overwhelmed per her report. Thea Francisco DO [facility] Hospitalist Admission and Anticipated Discharge Date Admission Date: August 25, 2021 Subjective 75-year-old female presented with strokelike symptoms including right facial droop and word finding difficulty. She is also generally weak. She continues to go back to the port placement in her chest on 08/23 as the time she started to feel ill. Blood cultures are currently pending and she is remained afebrile on broad-spectrum antibiotics overnight. Her facial droop may be somewhat chronic but has improved to the point she is now passed her speech test and is tolerating p.o. MRI brain was negative overnight. In setting of lymphoma there is concern for [employer] invasion. Discussed this with Dr. Niraj cloud, her current oncologist. LP considered but with risks. Discussed transfer to tertiary care center with patient who is very tremulous and overwhelmed. Prefers to discuss with daughter first. Patient otherwise reporting pain in her left arm IV site. Denies headache, fevers, chills or other symptoms at this time. She was able to eat some lunch today and reports feeling somewhat better. She is generally shaky and anxious appearing. She appears very weak and reports ambulating with a walker at baseline. Again, she cannot independently sit up in bed because of significant weakness. Her cancer is known to be very aggressive and with limited treatment options. Review of Systems Review of Systems: All systems reviewed and negative except as indicated in HPI above Physical Exam Physical Exam: CONSTITUTIONAL: WNWD, vitals as above, generally ill- appearing, tremulous EYES: PERRL, normal conjunctivae, no scleral icterus, normal fundoscopic exam (no pupillary dilation performed so exam limited) ENT: external ear and nose normal, oropharynx clear, Right sided facial droop, improved NECK: trachea midline RESPIRATORY: CTA throughout, no rales or wheezes, normal respiratory effort CARDIOVASCULAR: regular rate and rhythm, S1 and 2 heard without murmurs, gallops or rubs, no JVD, no peripheral edema CHEST: inspection of chest reveals recent port with fresh IJ site, wound covered with blood-tinged bandage underneath clear dressing. GASTROINTESTINAL: soft, nontender, ND, no guarding MUSCULOSKELETAL: Generally weak all throughout. No gross focal deficits. Head is NC/AT. SKIN: warm and dry, NEUROLOGIC: CN 2-12 grossly intact, no sensory deficit, normal cognition, normal speech, slow to respond to questions but can find the right answers with time. no tremor PSYCHIATRIC: alert cooperative and oriented to person, place and time. Results & Data Results & Data ([facility]) Vital Signs (Past 12 Hours) Vital Signs Temp Pulse Pulse Resp BP BP Pulse Ox 08/26/21 10:41 36.8 C 92 H 22 116/64 96 08/26/21 07:57 37.2 C 89 26 H 116/72 95 08/26/21 03:59 36.8 C 93 H 16 131/76 98 08/26/21 02:15 36.8 C 74 14 126/72 96 08/26/21 02:00 73 14 131/73 97 08/26/21 01:00 EST 74 14 125/63 97 Laboratory Results Short CBC 08/25/21 08/25/21 08/26/21 Range/Units 15:15 16:17 04:54 WBC Cancelled 2.80 L 3.43 L Hgb Cancelled 7.0 L 9.2 L Hct Cancelled 20.7 L* 26.9 L Plt Count Cancelled 29 L* 35 L BMP 08/25/21 08/26/21 15:15 04:54 Sodium 134 L 137 Potassium 3.4 L 3.3 L Chloride 101 105 Carbon Dioxide 24 22 BUN 15 18 Creatinine 1.08 0.94 Glucose 132 H 125 H Calcium 8.1 L 8.1 L Cardiac Enzymes 08/25/21 Range/Units 15:15 Troponin I 0.030 (0-0.045) ng/ml Liver Function 08/25/21 Range/Units 15:15 Total Bilirubin 1.6 H (0.2-1) mg/dl AST 12 L (15-37) U/L ALT 11 L (12-78) U/L Alkaline Phosphatase 76 (45-117) U/L Albumin 2.8 L (3.4-5.0) gm/dl Urine 08/25/21 Range/Units 15:46 Urine Color Dark Yellow Urine Appearance Clear (Clear) Urine pH 5.0 (4.5-7.5) Ur Specific [place] 1.023 (1.000-1.030) Urine Protein 2+ H (Negative) Urine Glucose (UA) Negative (Negative) Diagnostic Findings Brain MRI 08/26/21 08:57 MRI OF THE BRAIN WITHOUT CONTRAST CLINICAL HISTORY: Stroke like symptoms. Right facial droop.History of lymphoma/leukemia. COMPARISON STUDY: MRI the brain August 03, 2019. Head CT and CTA of the head August 25, 2021. TECHNIQUE: Utilizing a 1.5 Dyana magnet and dedicated coil, multiplanar, multiecho imaging of the brain was performed without IV contrast. FINDINGS: There are no foci of restricted diffusion to suggest acute infarct. No acute intracranial hemorrhage, midline shift or mass effect is present. Ventricular system is unremarkable. Basal cisterns are patent. There are no extra-axial collections. Flow-voids for the major intracranial vessels are present. No intracranial masses identified on this unenhanced exam. Multiple small white matter T2 hyperintense foci are similar to MRI of August 03, 2019. Note is made of diminished T1 marrow signal within the calvarium, clivus and visualized portions of the cervical spine. This is new since previous MRI. IMPRESSION: 1. No acute intracranial findings. 2. Interval development of marrow signal abnormality since MRI of August 03, 2019. This is likely consistent with the history of lymphoma/leukemia. ACT 112: Negative or not required by law. Electronically signed by: Stevenson Coreas M.D. 08/26/2021 10:12 AM Medications Administered Current Inpatient Medications Acetaminophen (Acetaminophen 325 Mg Tab) 650 mg PO Q4H PRN PRN Reason: Pain or Fever Stop: 09/24/21 18:45 Fluticasone/Vilanterol (Fluticasone/Vilanterol 100/25mcg 14 Puffs/Inhaler) 1 puffs INH QAM PRN PRN Reason: Shortness Of Breath Or Wheezing Stop: 09/24/21 22:42 Gabapentin (Gabapentin 400 Mg Cap) 400 mg PO TID AJAY Stop: 09/25/21 08:59 Last Admin: 08/26/21 08:16 Dose: Not Given Documented by: Diltiazem HCl 125 mg/ Dextrose 125 mls @ 10 mls/hr IV .[id number] AJAY; Protocol Stop: 09/24/21 15:29 Last Admin: 08/26/21 08:16 Dose: Not Given Documented by: Vancomycin HCl 1,500 mg/ (Sodium Chloride) 530 mls @ 200 mls/hr IV Q24H [facility] Stop: 08/28/21 17:59 Cefepime HCl 2,000 mg/ Syringe 20 mls @ 5 mls/min IV Q12H [facility]; Protocol Stop: 08/28/21 04:59 Last Admin: 08/26/21 05:37 Dose: 5 mls/min Documented by: Levothyroxine Sodium (Levothyroxine Sodium 112 Mcg Tablet) 112 mcg PO DAILYBB [facility] Stop: 09/25/21 06:29 Last Admin: 08/26/21 06:18 Dose: 112 mcg Documented by: Miscellaneous Information (Vancomycin Consult Active) 1 ea N/A UD PRN PRN Reason: Consult Stop: 09/24/21 16:58 Miscellaneous Information (Pharmacist Discharge Med Rec Consult) 1 ea N/A UD PRN PRN Reason: Consult Stop: 09/24/21 18:45 Ondansetron HCl (Ondansetron Inj 2 Mg/Ml 2 Ml Vial) 4 mg IV Q6H PRN PRN Reason: Nausea Stop: 09/24/21 18:45 Oxycodone/Acetaminophen (Oxycodone/Acetaminophen 5mg/325mg Tab) 1 tab PO Q6H PRN PRN Reason: pain Stop: 09/08/21 22:42 Last Admin: 08/26/21 05:38 Dose: 1 tab Documented by: Pantoprazole Sodium (Pantoprazole 40 Mg Tab) 40 mg PO QAM [facility] Stop: 09/25/21 08:59 Last Admin: 08/26/21 08:16 Dose: Not Given Documented by: Polyethylene Glycol (Polyethylene (Miralax) 17 Gm Pack) 17 gm PO DAILY PRN PRN Reason: Constipation Stop: 09/24/21 18:45 Rosuvastatin Calcium (Rosuvastatin Calcium 20 Mg Tab) 40 mg PO HS [facility] Stop: 09/25/21 20:59 Venlafaxine HCl (Venlafaxine Hcl Xr 75 Mg Capxr) 75 mg PO HS [facility]AY Stop: 09/24/21 22:59 Last Admin: 08/25/21 23:35 Dose: Not Given Documented by: (1) Follicular lymphoma grade I Lymphoma site: unspecified region Qualified Code(s): C82.00 - Follicular lymphoma grade I, unspecified site (2) Stroke CVA mechanism: unspecified Qualified Code(s): I63.9 - Cerebral infarction, unspecified
[2021-08-26] MEDS: ACETAMINOPHEN 325 MG TAB PO PRN (14:55)
[2021-08-26] MEDS ORDERED: ALPRAZolam 0.5 MG TABLET PO PRN (14:55)
[2021-08-26] MEDS: VANCOMYCIN HCL 1,500 MG in SODIUM CHLORIDE 0.9% 500 ML IV SCH (17:02)
--- NOTE | 2021-08-26 17:53 | Consultation Report ---
NEUROLOGY CONSULTATION DATE OF CONSULTATION: 08/26/2021 CONSULTING PHYSICIAN: Dr. Thea Francisco. CHIEF COMPLAINT: Right facial droop, weakness, altered mental status. HISTORY OF PRESENT ILLNESS: A 75-year-old woman with a history of recurrent follicular lymphoma and transfusion-dependent anemia since 06/2021. She presented to the Emergency Department yesterday for concerns for acute weakness, inability to walk, right facial droop and delayed responses. She woke yesterday morning with back pain and decided to get into her bed. She woke up in a chair. When she got in her bed, she was too weak to get out of her bed and rolled around for a couple of hours, per report. She tried walking to the bathroom and collapsed on the floor. She noted left hip pain and left knee pain. She was able to call her family members who called EMS. EMS reported a right facial droop around 2:00 p.m. [id number] arrived around noon and stated she did not see the right facial droop at that time. On arrival to the Emergency Department, she was found to be in new-onset atrial fibrillation with RVR. Heart rate was in the 180s. She was febrile with a rectal temperature of 40.8. She does report a recent history of intermittent fevers related to ongoing cancer. She also noted having night sweats and weight loss. She had no respiratory or urinary symptoms. She was given diltiazem and started on a drip for RVR. She was then given metoprolol and converted to sinus rhythm with rate in the 70s. Repeat EKG confirmed this. Blood pressures were stable. She underwent CT head imaging, which revealed no evidence of hemorrhage or acute intracranial abnormality. CTA head and neck was also performed and revealed no large vessel occlusion. The case was discussed with Tel[facility] Neurology at [facility]. TPA was not administered due to history of thrombocytopenia and platelet count in the 40s. Hemoglobin was 7 and hematocrit of 20. Platelet count was 29. COVID-19 testing was negative. She was given empiric antibiotics for neutropenic fever. Symptoms had improved. She was scheduled to start chemotherapy this week, which will likely be delayed. The patient was admitted for further stroke evaluation. Neurology was consulted upon admission. ALLERGIES: No known drug allergies. HOME MEDICATIONS: Gabapentin 400 mg 3 times daily, Synthroid, Protonix, Crestor 40 mg daily, Effexor 75 mg nightly, Percocet as needed, hydrochlorothiazide 12.5 mg daily. PAST MEDICAL HISTORY: Acute myeloblastic leukemia, asthma, chronic kidney disease, COPD, diverticulitis, esophageal reflux disease, essential tremor, follicular lymphoma, history of DVT, hyperlipidemia, hypertension, hypothyroidism, pancreatitis, postherpetic trigeminal neuralgia, thoracic aortic aneurysm. PAST SURGICAL HISTORY: Parotidectomy, hysterectomy, bone marrow biopsy, cataract surgery, colonoscopy, cystoscopy, dilation and curettage or D and C, ERCP, EGD, right superficial parotid lesion excision, cholecystectomy, IVC filter, left inguinal lymph node biopsy, status post fine needle aspiration of the lymph node in her left external iliac and status post fine needle aspiration of a right parotid gland. FAMILY HISTORY: Grandmother had no known problems. Father had lung cancer, at the age of 72. Her mother at the age of 84 and had no known history of cancer. Brother had no known history of cancer and at the age of 70. She does have a daughter that has CLL or chronic lymphocytic leukemia. SOCIAL HISTORY: She is a nonsmoker, no alcohol use. 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 She drinks caffeine daily. She uses a cane and has glasses. REVIEW OF SYSTEMS: All systems were reviewed and negative except as noted above in the HPI. PHYSICAL EXAMINATION: VITAL SIGNS: Blood pressure 116/94, pulse is 92, respiratory rate 22, temperature is 36.8 degrees Celsius, oxygen saturation is 96% on room air. GENERAL: The patient appears stated age, in no distress. HEENT: Normocephalic and atraumatic. Normal eyelids. Normal conjunctivae. NECK: Supple, normal respiratory effort. CARDIAC: Pulses are normal. ABDOMEN: Nondistended. SKIN: She has no skin rash. PSYCHIATRIC: Shows normal mood and normal affect. NEUROLOGIC: Awake, alert, oriented to person, place, and time. Attention is normal. Knowledge is appropriate. No aphasia, no dysarthria. Pupils are symmetric. Extraocular muscles are intact. Facial sensation is intact. No facial asymmetry. Intact hearing. Palate is symmetric. Good shoulder shrug. Tongue is midline. Gait evaluation deferred. Essential tremor, sensation is intact. Muscle tone is normal. No focal weakness. Reflexes show no ankle clonus and a negative Marilu sign. DIAGNOSTIC TESTING AND LABORATORY VALUES: WBC 3.43, hemoglobin 9.2, hematocrit 26.9, platelet count is 35. Sodium is 137, potassium 3.3, chloride 105, carbon dioxide 22, BUN is 18, creatinine is 0.94, hemoglobin A1c is pending. Lactate was normal at 1.7, calcium is 8.1, magnesium 2.3. LDL cholesterol was 19, HDL was 33. Urinalysis showed 2+ protein, 1+ ketones, 3+ blood, 1+ bilirubin, negative bacteria. COVID-19 testing was negative. Blood cultures are pending. MRI of the brain without contrast showed no acute intracranial findings. No evidence of acute or subacute ischemic stroke. No intracranial hemorrhage, midline shift or mass effect. Interval development of marrow signal abnormality since MRI of 07/2019. This is likely consistent with history of lymphoma/leukemia. X-ray of the knee showed soft tissue swelling without acute fracture. Moderate medial and patellofemoral compartment osteoarthritis. X-ray of the hip/pelvis showed no acute fracture or dislocation. Head and neck CTA showed atherosclerotic plaque of the thoracic aortic arch resulting in high- grade stenosis at the origin of the left subclavian artery. Aberrant course of the right subclavian artery. Otherwise, unremarkable CT of the head and neck. Head CT noncontrast showed no acute intracranial abnormality. Chest x-ray showed cardiomegaly with mild decreased pulmonary edema. ASSESSMENT AND PLAN: A 75-year-old woman with a history of follicular lymphoma, pancytopenia, and AML admitted with new-onset atrial fibrillation with rapid ventricular response and significant anemia. The patient is noted to have high- grade fever, as well concerning for possible sepsis or systemic inflammatory response syndrome. Started on broad spectrum antibiotics. Emergency medical service noted an intermittent right facial droop. Suspect globalized weakness and ambulatory difficulties likely related to anemia. Patient feeling better today after transfusion. No further fevers Hemoglobin has since improved s/p transfusion. MRI of the brain without contrast is reassuring as there is no evidence of a lacunar infarct. Differential diagnosis of the transient facial droop certainly includes possible transient ischemic attack as new-onset atrial fibrillation with rapid ventricular response is certainly a risk factor. Agree with rate control. Unfortunately, given her severe thrombocytopenia/pancytopenia, the patient is not a candidate for anticoagulation or antiplatelet agent due to risk of hemorrhage. Recommend normotension. We will defer to primary team for infectious/metabolic workup. Transthoracic echocardiogram was also performed today, and there was no evidence of cardiac thrombus. There was a normal ejection fraction. We will defer to Cardiology for assistance with management of atrial fibrillation. Otherwise, no additional neurological workup is necessary at this time. There is some note asymmetry in her facial expression on the left, although this is not forehead sparing, which may be related to her prior parotid surgery. The patient can follow up with neurology on an as-needed basis for now. Job ID: [id number] [id number]
--- NOTE | 2021-08-26 19:41 | Surgery Consultation ---
Date of Consultation August 26, 2021 Assessment & Plan (1) Neutropenic fever: Patient has been admitted on the hospitalist service recommend proceeding as follows: Patient has been initiated on broad-spectrum antibiotics in the form of vancomycin and cefepime which should continue Blood cultures been obtained; will follow for results of these Is uncertain if the patient's a port is indeed infected or if her fever is merely due to her underlying malignancies As Dr. Valladares has placed the patient is a poor we will notify him of patient's admission in the morning and await his input concerning whether port should be removed or not and leave the timing of this to his discretion History of Present Illness Reason for Consultation: Fever, concern for infected a port Attending Physician: Thea Francisco, History of Present Illness This is a 75-year-old female with a history of follicular lymphoma as well as acute myelogenous leukemia. Patient reports being transfusion dependent over the past several weeks. On 08/23/2021 the patient had a right subclavian a port placed by Dr. Valladares. Patient was admitted to [facility] on 08/25/2021 due to concern for stroke. In addition the patient was noted to have neutropenic fever. Patient has had blood cultures sent and has been started on broad-spectrum antibiotics. General surgery has been consulted for possible port infection. Did discuss with the patient and she notes that the port has not been accessed for any chemotherapy administration and has also not been used for blood draws. She does note some mild tenderness at the superior portion of the port that seems to have increased since her surgical procedure. He denies any drainage from the port. She does report that since being initiated on antibiotics in the hospital she feels somewhat better. At the time of interview she is resting comfortably in bed in no distress. Allergies Allergy/AdvReac Type Severity Reaction Status Date / Time No Known Allergies Allergy Verified 08/25/21 14:57 Home Medications Medication Instructions Recorded Confirmed Type fluticasone propionate 50 2 spray INTRANASAL QAM 08/03/19 08/25/21 History mcg/actuation nasal spray,suspension (Flonase Allergy Relief) gabapentin 300 mg capsule 400 mg PO TID 08/03/19 08/25/21 History (Neurontin) levothyroxine 112 mcg tablet 112 mcg PO QAM 08/03/19 08/25/21 History (Synthroid) pantoprazole 40 mg tablet,delayed 40 mg PO QAM 08/03/19 08/25/21 History release (Protonix) rosuvastatin 40 mg tablet (Crestor) 40 mg PO HS 08/03/19 08/25/21 History venlafaxine 75 mg capsule,extended 75 mg PO HS 08/03/19 08/25/21 History release 24 hr (Effexor XR) diclofenac sodium 1 % topical gel 4 g TOPICAL QID PRN 10/21/19 08/25/21 History (Voltaren Arthritis Pain) fluticasone furoate 100 1 inh INHALATION QAM PRN 05/02/21 08/25/21 History mcg-vilanterol 25 mcg/dose inhalation powder (Breo Ellipta) hydrochlorothiazide 12.5 mg capsule 12.5 mg PO DAILY 07/03/21 08/25/21 History oxycodone-acetaminophen 5 mg-325 1 tab PO Q6H PRN #14 tab 08/23/21 08/25/21 Rx mg tablet (Percocet) Patient History Medical History AML (acute myeloblastic leukemia) Asthma Well controlled CKD (chronic kidney disease), stage III COPD (chronic obstructive pulmonary disease) Diverticulitis Hx Esophageal reflux Essential tremor Follicular lymphoma History of DVT (deep vein thrombosis) 2007 > in setting prolonged inactivity from hospital admission HLD (hyperlipidemia) HTN (hypertension) Hypothyroidism Pancreatitis Hx Post-herpetic trigeminal neuralgia Reason for gabapentin Thoracic aortic aneurysm without rupture Ascending thoracic aorta is ectatic up to 4.4 cm (Previously measured 4.1 cm in 2012. Slowly increasing in size) per 06/2020 CTA, under surveillance by Dr. Cohn Surgical History H/O parotidectomy (11/2003) H/O: hysterectomy History of bone marrow biopsy (10/2011) Jul 2021 History of cataract surgery bilat History of colonoscopy (02/16/19) History of cystoscopy (06/02/12) History of dilatation and curettage History of ERCP (06/21/08) History of esophagogastroduodenoscopy (EGD) (03/06/16) History of excision of lesion (04/02/21) Right Superficial Parotid S/P cholecystectomy S/P insertion of IVC (inferior vena caval) filter (06/26/12) 2012 > [place] Filter Placement Right Groin Dr. Srivastava at [facility] Status post excisional biopsy (07/07/17) Left Inguinal Lymph Node Dr. Anderson at [facility] Status post fine needle aspiration (04/05/21) Left External Iliac Lymph Node under [facility] Dr. Coreas at [facility] Status post fine needle aspiration (02/08/19) Right Parotid Gland Lesion Family History Grandmother (Maternal) , Passed Age 52 due to Colon Cancer No problems noted. Father , Passed Age 72 due to Lung Cancer, occupation related No problems noted. Mother , Passed Age 84 of unknown cancer No problems noted. Brother , Passed Age 70 of unknown cancer No problems noted. Brother No problems noted. Daughter CLL (chronic lymphocytic leukemia) Son No problems noted. Son No problems noted. Son No problems noted. Aunt , Passed Age 70 due to Breast Cancer No problems noted. 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 How many Children do You have: 4 Other Information That Helps Us Care for You: No Feels Safe at Home: Yes Childhood Exposure to Second-Hand Smoke: Yes (father smoked in home) caffeine: Yes (cola daily) during the past year weight has: remained stable Dental Care, Regularly: Yes Physical Activity Frequency: Does not Exercise Assistive Devices: Cane and Oxygen - Continuous Review of Systems Constitutional: + fever Eyes: no diplopia Ear, Nose, Mouth, Throat: no hearing loss and no sore throat Respiratory: no cough and no dyspnea Cardiovascular: no chest pain Gastrointestinal: no abdominal pain Genitourinary: no dysuria Musculoskeletal: no back pain Integumentary: + unusual bruising Neurologic: + problem reported (Facial droop) Physical Exam Physical Exam: Patient's right subclavian a port was examined. There is some minor tenderness noted at the superior portion just above the port. There is no purulent drainage noted. There is no crepitus noted in the soft tissue. Constitutional: well developed and well nourished; no acute distress Eyes: no conjunctival abnormality ENMT: Ears: no hearing impairment Neck: trachea midline Respiratory: normal respiratory effort; no respiratory distress and no labored breathing Cardiovascular: Rate/Rhythm: + irregularly irregular Musculoskeletal: Abdomen is soft and nontender numerous areas of ecchymosis noted on arms bilaterally Skin: + ecchymosis Neurologic: moves all extremities Psychiatric: A+Ox3, euthymic affect Results & Data ([facility]) Vital Signs (Past 12 Hours) Vital Signs Temp Pulse Pulse Resp BP Pulse Ox 08/26/21 18:44 37.0 C 91 H 18 105/62 95 08/26/21 16:38 127/44 L 08/26/21 15:59 37.2 C 93 H 21 93 08/26/21 14:53 39.0 C H 08/26/21 10:41 36.8 C 92 H 22 116/64 96 08/26/21 07:57 37.2 C 89 26 H 116/72 95 PG Care Time/CCT Total # of Minutes Spent Total Time Spent with Patient: Total time spent is greater than 50% in coordination of care (as documented) at patient's floor/unit and/or counseling patient: Coding Level of Care Code 13102 Inpt Consult Level 4 Diagnoses Neutropenic fever D70.9; R50.81
[2021-08-26] MEDS: ROSUVASTATIN CALCIUM 20 MG TAB PO SCH (21:54)
[2021-08-26] MEDS: METOPROLOL TARTRATE 25 MG TAB PO SCH (21:54)
[2021-08-26] MEDS: VENLAFAXINE HCL XR 75 MG CAPXR PO SCH (21:54)
[2021-08-26] MEDS ORDERED: STAT IV Infusion **Titration per Protocol STA (22:59)
[2021-08-26] MEDS ORDERED: 0.2 MICRON FILTER SET 1 EA IV ONE (22:59)
[2021-08-26] MEDS ORDERED: AMIODARONE IV BOLUS & DRIP IV STA (22:59)
--- NOTE | 2021-08-26 23:00 | Communication Note ---
Date of Service: August 26, 2021 10:55 PM Patient with sudden onset rapid A. fib, cardiac rate 189, SBP 100s. Patient denies shortness of breath. AP Recurrent A. fib Amiodarone infusion given borderline BP Will relay to AM provider.
[2021-08-26] MEDS ORDERED: AMIODARONE 150MG / 100ML D5W IV ONE (23:04)
[2021-08-26] MEDS ORDERED: AMIODARONE 360MG / 200ML D5W IV ONE (23:11)
[2021-08-26] MEDS ORDERED: AMIODARONE / D5W 150 MG/100 ML BAG IV STA (23:15)
[2021-08-26] MEDS ORDERED: POTASSIUM CHLORIDE CRTAB 20 MEQ TABCR PO STA (23:16)
[2021-08-26] MEDS ORDERED: AMIODARONE / D5W 360 MG/200 ML BAG IV ONE (23:30)
[2021-08-26] MEDS ORDERED: ALBUMIN 25% 100 mL 25 GM/100 ML VIAL IV ONE (23:30)
[2021-08-27] MEDS ORDERED: POTASSIUM CHLORIDE CRTAB 20 MEQ TABCR PO ONE ×2 (01:00→10:25)
[2021-08-27] MEDS ORDERED: AMIODARONE / D5W 150 MG/100 ML BAG IV STA ×2 (02:56→05:38)
[2021-08-27] MEDS ORDERED: 0.2 MICRON FILTER SET 1 EA IV ONE ×2 (03:00→05:32)
[2021-08-27] MEDS ORDERED: ALBUMIN 25% 100 mL 25 GM/100 ML VIAL IV ONE (03:00)
[2021-08-27 03:13] LABS: Partial Thromboplastin Ratio 1.1; Partial Thromboplastin Time 28.6 Seconds (21.0-31.0)
[2021-08-27 03:21] LABS: BUN Creatinine Ratio 15.8 (10-20); Calcium 7.9 mg/dl (8.5-10.1); Creatinine Clr Calc Pharmacy 51.8 ml/min; Est GFR (African American) 57.1 ml/min; Est GFR (Non-African American) 49.3 ml/min; Magnesium 2.1 mg/dl (1.8-2.4); Potassium 3.6 mmol/L (3.5-5.1)
[2021-08-27 03:27] LABS: Hematocrit (blood only) 25.9 % (37-47); Hemoglobin 8.7 g/dL (12.0-16.0); Mean Corpuscular Hemoglobin 28.3 pg (25-34); Mean Corpuscular Hgb Conc 33.6 g/dL (32-36); Mean Corpuscular Volume 84.4 fL (80-100); Platelet Count 25 K/uL (130-400); RDW Coefficient of Variation 15.5 % (11.5-14.5); RDW Standard Deviation 48.5 fL (36.4-46.3); Red Blood Count 3.07 M/uL (4.2-5.4); White Blood Count 2.62 K/uL (4.8-10.8)
[2021-08-27 03:28] LABS: Immature Granulocytes # (auto) 0.09 K/uL (0.00-0.02); Immature Granulocytes % (auto) 3.4 %; Lymphocytes # (auto) 0.64 K/uL (1.2-3.4); Lymphocytes % (auto) 24.4 %; Monocytes # (auto) 0.39 K/uL (0.11-0.59); Monocytes % (auto) 14.9 %; Neutrophils % (auto) 57.3 %
[2021-08-27] MEDS ORDERED: POTASSIUM CHLORIDE CRTAB 20 MEQ TABCR PO STA (03:39)
[2021-08-27] MEDS: CEFEPIME 2,000 MG in SYRINGE 0 ML IV SCH ×2 (04:48→16:38)
[2021-08-27] MEDS: ONDANSETRON INJ 2 MG/ML 2 ML VIAL IV PRN ×2 (04:48→21:27)
[2021-08-27] MEDS: LEVOTHYROXINE SODIUM 112 MCG TABLET PO SCH (04:49)
[2021-08-27] MEDS: AMIODARONE / D5W 360 MG/200 ML BAG IV SCH ×2 (05:04→16:38)
[2021-08-27] MEDS ORDERED: DIGOXIN 250 MCG in SYRINGE 9 ML IV STA (05:39)
[2021-08-27 07:22] LABS: Estimated Average Glucose 126 mg/dl
[2021-08-27 07:41] LABS: Estimated Average Glucose 128 mg/dl; Hemoglobin A1C 6.1 % (4.5-5.6)
[2021-08-27] MEDS: METOPROLOL TARTRATE 25 MG TAB PO SCH ×2 (08:26→21:22)
[2021-08-27] MEDS: GABAPENTIN 400 MG CAP PO SCH ×3 (08:26→21:19)
[2021-08-27] MEDS: PANTOprazole 40 MG TAB PO SCH (08:26)
--- NOTE | 2021-08-27 09:51 | Cardiology Consultation ---
Date of Consultation August 27, 2021 Assessment & Plan (1) Paroxysmal atrial fibrillation with rapid ventricular response: (2) History of DVT (deep vein thrombosis): (3) Pancytopenia: Patient is a very complex 75-year-old female with acute myelo blastic leukemia with pancytopenia who presents with acute weakness with possible neurologic event in association with atrial fibrillation with rapid response Events have been paroxysmal since admission. Recommendations: Agree with IV amiodarone would continue with ultimate conversion to oral. Goal is to maintain sinus rhythm given inability to anticoagulate especially in light of possible recent neurologic event Patient currently in sinus and will have low threshold for adding low-dose beta-maria e to her regimen if heart rates not adequately controlled. Echocardiogram demonstrates hyperdynamic LV function with diastolic dysfunction. Chest x-ray reflects mild increase in intravascular markings multifactorial but mild volume overload suspected with recent transfusions noted. We will give a single dose of IV furosemide with potassium supplement History of Present Illness Reason for Consultation: Atrial fibrillation with rapid response, paroxysmal Requesting Physician: Dr. Hoyt Attending Physician: Walter Hoyt MD History of Present Illness Patient is a complex 75-year-old female with ongoing issues which include 1. Acute myeloblastic leukemia with pancytopenia 2. Prior non-Hodgkin's lymphoma/follicular lymphoma 3. Prior DVT status post IVC filter off anticoagulation due to pancytopenia/bleeding 4. Right bundle branch block 5. Thoracic aortic enlargement Patient is a critically ill patient with recent diagnosis as above acute m yeloblastic leukemia with pancytopenia. Anticoagulation discontinued. She presents this admission with acute weakness, fever and new onset atrial fibrillation with rapid response with possible associated neurologic event. Patient initially responded to IV metoprolol with return to sinus rhythm but relapsed into atrial fibrillation with rapid response overnight. She has begun on IV amiodarone with return to sinus rhythm this morning. Patient notes no prior history of atrial arrhythmias. Was previously anticoagulated due to past DVT now currently contraindicated. Initial neurologic concerns appear to have resolved this morning No chest pains. No prior history of myocardial infarction angina or congestive heart failure. Chest x-rays do appear plethoric on last testings. Currently no acute complaints other than discomfort at sites of hematomas and arm and contusions at recent fall areas. Allergies Allergy/AdvReac Type Severity Reaction Status Date / Time No Known Allergies Allergy Verified 08/25/21 14:57 Home Medications Medication Instructions Recorded Confirmed Type fluticasone propionate 50 2 spray INTRANASAL QAM 08/03/19 08/25/21 History mcg/actuation nasal spray,suspension (Flonase Allergy Relief) gabapentin 300 mg capsule 400 mg PO TID 08/03/19 08/25/21 History (Neurontin) levothyroxine 112 mcg tablet 112 mcg PO QAM 08/03/19 08/25/21 History (Synthroid) pantoprazole 40 mg tablet,delayed 40 mg PO QAM 08/03/19 08/25/21 History release (Protonix) rosuvastatin 40 mg tablet (Crestor) 40 mg PO HS 08/03/19 08/25/21 History venlafaxine 75 mg capsule,extended 75 mg PO HS 08/03/19 08/25/21 History release 24 hr (Effexor XR) diclofenac sodium 1 % topical gel 4 g TOPICAL QID PRN 10/21/19 08/25/21 History (Voltaren Arthritis Pain) fluticasone furoate 100 1 inh INHALATION QAM PRN 05/02/21 08/25/21 History mcg-vilanterol 25 mcg/dose inhalation powder (Breo Ellipta) hydrochlorothiazide 12.5 mg capsule 12.5 mg PO DAILY 07/03/21 08/25/21 History oxycodone-acetaminophen 5 mg-325 1 tab PO Q6H PRN #14 tab 08/23/21 08/25/21 Rx mg tablet (Percocet) Patient History Medical History (Updated 08/27/21 @ 10:12 by Willie Lin MD) AML (acute myeloblastic leukemia) Asthma Well controlled CKD (chronic kidney disease), stage III COPD (chronic obstructive pulmonary disease) Diverticulitis Hx Esophageal reflux Essential tremor Follicular lymphoma History of DVT (deep vein thrombosis) 2007 > in setting prolonged inactivity from hospital admission HLD (hyperlipidemia) HTN (hypertension) Hypothyroidism Pancreatitis Hx Post-herpetic trigeminal neuralgia Reason for gabapentin Thoracic aortic aneurysm without rupture Ascending thoracic aorta is ectatic up to 4.4 cm (Previously measured 4.1 cm in 2012. Slowly increasing in size) per 06/2020 CTA, under surveillance by Dr. Cohn Surgical History H/O parotidectomy (11/2003) H/O: hysterectomy History of bone marrow biopsy (10/2011) Jul 2021 History of cataract surgery bilat History of colonoscopy (02/16/19) History of cystoscopy (06/02/12) History of dilatation and curettage History of ERCP (06/21/08) History of esophagogastroduodenoscopy (EGD) (03/06/16) History of excision of lesion (04/02/21) Right Superficial Parotid S/P cholecystectomy S/P insertion of IVC (inferior vena caval) filter (06/26/12) 2012 > [place] Filter Placement Right Groin Dr. Srivastava at [facility] Status post excisional biopsy (07/07/17) Left Inguinal Lymph Node Dr. Anderson at [facility] Status post fine needle aspiration (04/05/21) Left External Iliac Lymph Node under [facility] Dr. Coreas at [facility] Status post fine needle aspiration (02/08/19) Right Parotid Gland Lesion Family History Grandmother (Maternal) , Passed Age 52 due to Colon Cancer No problems noted. Father , Passed Age 72 due to Lung Cancer, occupation related No problems noted. Mother , Passed Age 84 of unknown cancer No problems noted. Brother , Passed Age 70 of unknown cancer No problems noted. Brother No problems noted. Daughter CLL (chronic lymphocytic leukemia) Son No problems noted. Son No problems noted. Son No problems noted. Aunt , Passed Age 70 due to Breast Cancer No problems noted. 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 How many Children do You have: 4 Other Information That Helps Us Care for You: No Feels Safe at Home: Yes Childhood Exposure to Second-Hand Smoke: Yes (father smoked in home) caffeine: Yes (cola daily) during the past year weight has: remained stable Dental Care, Regularly: Yes Physical Activity Frequency: Does not Exercise Assistive Devices: None Review of Systems Review of Systems: All systems reviewed & are unremarkable except as noted in HPI & below Physical Exam Constitutional: + ill appearing; no acute distress Eyes: PERRL, conjunctivae normal, anicteric sclerae ENMT: external ear and nose normal, oropharynx normal Neck: trachea midline, no thyromegaly Respiratory: Auscultation: + crackles (Right base) Cardiovascular: Rate/Rhythm: regular rate and regular rhythm Heart Sounds: + gallop (S4) and + murmur (Grade 1/6 systolic) Palpation: normal PMI Vessels: no JVD Extremities: no edema Gastrointestinal (Abdomen): normal bowel sounds, soft, nontender, no hepatosplenomegaly Musculoskeletal: Ecchymosis/hematoma left forearm Neurologic: No acute deficit currently Results & Data ([facility]) Vital Signs (Past 12 Hours) Vital Signs Temp Pulse Pulse Resp BP Pulse Ox 08/27/21 07:34 36.5 C 147 H 20 117/79 96 08/27/21 05:44 155 H 08/27/21 05:42 36.5 C 149 H 18 113/71 94 08/27/21 00:36 199 H 08/26/21 23:59 101 H Laboratory Results Laboratory Results - last 24 hr 08/26/21 08/27/21 08/27/21 04:54 02:52 02:52 WBC 2.62 L RBC 3.07 L Hgb 8.7 L Hct 25.9 L MCV 84.4 MCH 28.3 MCHC 33.6 RDW Std Deviation 48.5 H RDW Coeff of Rosamaria 15.5 H Plt Count 25 L* Immature Gran % (Auto) 3.4 Neut % (Auto) 57.3 Lymph % (Auto) 24.4 Moca % (Auto) 14.9 Eos % (Auto) 0.0 Baso % (Auto) 0.0 Neut # (Auto) 1.50 Lymph # (Auto) 0.64 L Moca # (Auto) 0.39 Eos # (Auto) 0.00 Baso # (Auto) 0.00 Immature Gran # (Auto) 0.09 H APTT PTT Ratio Sodium Potassium Chloride Carbon Dioxide Anion Gap BUN Creatinine Est Cr Clr Drug Dosing Est GFR ( Amer) Est GFR (Non-Af Amer) BUN/Creatinine Ratio Glucose Estimat Average Glucose 126 128 Hemoglobin A1c 6.0 H 6.1 H Lactate Calcium Magnesium 08/27/21 08/27/21 08/27/21 02:52 02:52 02:53 WBC RBC Hgb Hct MCV MCH MCHC RDW Std Deviation RDW Coeff of Rosamaria Plt Count Immature Gran % (Auto) Neut % (Auto) Lymph % (Auto) Moca % (Auto) Eos % (Auto) Baso % (Auto) Neut # (Auto) Lymph # (Auto) Moca # (Auto) Eos # (Auto) Baso # (Auto) Immature Gran # (Auto) APTT 28.6 PTT Ratio 1.1 Sodium 133 L Potassium 3.6 Chloride 103 Carbon Dioxide 22 Anion Gap 8.0 BUN 17 Creatinine 1.09 Est Cr Clr Drug Dosing 51.8 Est GFR ( Amer) 57.1 Est GFR (Non-Af Amer) 49.3 BUN/Creatinine Ratio 15.8 Glucose 130 H Estimat Average Glucose Hemoglobin A1c Lactate 1.8 Calcium 7.9 L Magnesium 2.1
[2021-08-27] MEDS ORDERED: FUROSEMIDE INJ 20 MG/2 ML VIAL IV ONE (10:25)
--- NOTE | 2021-08-27 12:13 | Electrocardiogram Report ---
Test Reason : Blood Pressure : / mmHG Vent. Rate : 189 BPM Atrial Rate : 241 BPM P-R Int : 000 ms QRS Dur : 124 ms QT Int : 302 ms P-R-T Axes : 000 -29 030 degrees QTc Int : 535 ms Poor data quality, interpretation may be adversely affected Atrial fibrillation with rapid ventricular response Right bundle branch block T wave abnormality, consider lateral ischemia Abnormal ECG When compared with ECG of 25-AUG-2021 17:02, Atrial fibrillation has replaced Sinus rhythm Vent. rate has increased BY 111 BPM T wave inversion more evident in Anterolateral leads Confirmed by Juan Atkinson ([id number]) on 08/27/2021 12:13:27 PM Referred By: REFERRED SELF Confirmed By:Juan Atkinson
--- NOTE | 2021-08-27 12:22 | Electrocardiogram Report ---
Test Reason : Blood Pressure : / mmHG Vent. Rate : 146 BPM Atrial Rate : 104 BPM P-R Int : 000 ms QRS Dur : 124 ms QT Int : 344 ms P-R-T Axes : 000 -36 009 degrees QTc Int : 536 ms Atrial fibrillation with rapid ventricular response Left axis deviation Right bundle branch block Inferior infarct (cited on or before 26-AUG-2021) Abnormal ECG When compared with ECG of 26-AUG-2021 23:49, (unconfirmed) ST no longer depressed in Anterolateral leads T wave inversion less evident in Anterior leads Confirmed by Juan Atkinson ([id number]) on 08/27/2021 12:21:51 PM Referred By: REFERRED SELF Confirmed By:Juan tAkinson
--- NOTE | 2021-08-27 12:46 | Surgery Progress Note ---
Date of Service August 27, 2021 Assessment & Plan (1) AML (acute myeloblastic leukemia): Plan: S/P port insertion, POD 4 pt is doing better, blood culture negative, plan, continue IV antibiotic, will F/U Admission and Anticipated Discharge Date Admission Date: August 25, 2021 Subjective 75-year-old female presented with strokelike symptoms including right facial droop and word finding difficulty. She is also generally weak. She continues to go back to the port placement in her chest on 08/23 as the time she started to feel ill. Blood cultures are currently pending and she is remained afebrile on broad-spectrum antibiotics overnight. Her facial droop may be somewhat chronic but has improved to the point she is now passed her speech test and is tolerating p.o. MRI brain was negative overnight. 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 Discussed this with Dr. Niraj cloud, her current oncologist. LP considered but with risks. Discussed transfer to tertiary care center with patient who is very tremulous and overwhelmed. Prefers to discuss with daughter first. Patient otherwise reporting pain in her left arm IV site. Denies headache, fevers, chills or other symptoms at this time. She was able to eat some lunch today and reports feeling somewhat better. She is generally shaky and anxious appearing. She appears very weak and reports ambulating with a walker at baseline. Again, she cannot independently sit up in bed because of significant weakness. Her cancer is known to be very aggressive and with limited treatment options. 08/27/2021 12:41PM F/U S/P insertion port, Dr. Valladares, I reviewed pt's H/P, labs with pt, pt feels better, T 37.4, Blood culture negative so far, Physical Exam Constitutional: WD/WN, vitals as above Eyes: PERRL, conjunctivae normal, anicteric sclerae Neck: trachea midline, no thyromegaly Respiratory: normal respiratory effort, lungs clear to auscultation Cardiovascular: RRR, no murmur, no edema Chest (Breasts): Additional Comments: no redness at port site, no drainage, no tenderness, Musculoskeletal: no cyanosis or clubbing, extremities motor strength 5/5 Neurologic: patellar DTR's 2+ bilat, sensation intact Psychiatric: A+Ox3, euthymic affect Results & Data ([facility]) Vital Signs (Past 12 Hours) Vital Signs Temp Pulse Pulse Resp BP Pulse Ox 08/27/21 12:07 37.4 C 81 18 108/68 95 08/27/21 07:34 36.5 C 147 H 20 117/79 96 08/27/21 05:44 155 H 08/27/21 05:42 36.5 C 149 H 18 113/71 94 Laboratory Results Abnormal lab results 08/26/21 08/27/21 08/27/21 Range/Units 04:54 02:52 02:52 WBC 2.62 L (4.8-10.8) K/uL RBC 3.07 L (4.2-5.4) M/uL Hgb 8.7 L (12.0-16.0) g/dL Hct 25.9 L (37-47) % RDW Std Deviation 48.5 H (36.4-46.3) fL RDW Coeff of Rosamaria 15.5 H (11.5-14.5) % Plt Count 25 L* (130-400) K/uL Lymph # (Auto) 0.64 L (1.2-3.4) K/uL Immature Gran # (Auto) 0.09 H (0.00-0.02) K/uL Sodium (136-145) mmol/L Glucose (70-99) mg/dl Hemoglobin A1c 6.0 H 6.1 H (4.5-5.6) % Calcium (8.5-10.1) mg/dl 08/27/21 Range/Units 02:53 WBC (4.8-10.8) K/uL RBC (4.2-5.4) M/uL Hgb (12.0-16.0) g/dL Hct (37-47) % RDW Std Deviation (36.4-46.3) fL RDW Coeff of Rosamaria (11.5-14.5) % Plt Count (130-400) K/uL Lymph # (Auto) (1.2-3.4) K/uL Immature Gran # (Auto) (0.00-0.02) K/uL Sodium 133 L (136-145) mmol/L Glucose 130 H (70-99) mg/dl Hemoglobin A1c (4.5-5.6) % Calcium 7.9 L (8.5-10.1) mg/dl
[2021-08-27] MEDS: ACETAMINOPHEN 325 MG TAB PO PRN (13:53)
--- NOTE | 2021-08-27 16:00 | Hospitalist Progress Note ---
Date of Service August 27, 2021 Assessment & Plan (1) Stroke: Plan: Negative. 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 Neurology evaluation is pending. Decision regarding LP to be determined by neurology. This facility does not have the ability to give intrathecal chemotherapy as there is no oncology support here. However as per my discussion with the patient today she said she prefers to stay here as per the discussion among the team yesterday including the daughter. Discussed the case with her Oncologist, Dr. Saucedo, who is aware of the situation and agrees with the plan. He understands she will not be present for her scheduled treatment tomorrow. CT head revealed no evidence of stroke. High-grade stenosis at takeoff of left subclavian on CT angiogram. MRI of the brain was negative. Awaiting neurology input. Work with PT/OT. (2) Sepsis: Plan: No clear source has been identified, possible port infection. Cultures remain negative thus far. Continue with broad-spectrum antibiotics for neutropenic fever with vancomycin/cefepime. (3) Atrial fibrillation with rapid ventricular response: Plan: New onset A. fib with rapid ventricular response in setting of high fever, possible CVA, possible sepsis. Pulmonary embolism is a possible cause, however, she would not be able to tolerate a blood thinner with thrombocytopenia and is not working to breathe or reporting chest pain at this time. Appreciate cardiology input. Currently patient remains in sinus rhythm after Cardizem Continue with the beta-amria e. Transthoracic echo was obtained. Lasix given today. Monitor ins and outs along with daily weights. (4) Neutropenic fever: Plan: ANC improved to 1500. No clear infectious etiology, suspect fever possibly secondary to malignancy, but port may be another cause. Cont Vanc/Cefepime. (5) Follicular lymphoma grade I: Plan: Treatment plan per hematology this week after port placement 2 days ago. This will be delayed and patient is understanding of this. Dr. Saucedo is aware. (6) Pancytopenia: Plan: Patient reports being transfusion dependent for the last 2 months. 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 Hb appropriately responded to blood given. (7) History of DVT (deep vein thrombosis): Plan: Off Coumadin secondary to thrombocytopenia. (8) CKD (chronic kidney disease), stage III: Plan: Appears to be at her baseline. Continue to monitor closely (9) Hypothyroidism: Plan: TSH within normal limits. Cont home levothyroxine (10) Symptomatic anemia: Plan: Transfused 2 units of blood with some improvement. Hgb today at 8.7. Continue to monitor. (11) Generalized weakness: Plan: Morbid obesity and generalized deconditioning. Cannot sit up independently in bed. (12) DVT prophylaxis: Plan: SCDs Full Code as discussed with her on admission. Dispo-cont PCU monitoring Admission and Anticipated Discharge Date Admission Date: August 25, 2021 Subjective Patient is awake and alert. Appears lethargic. Reports she feels weak and did not get enough sleep. Denies any headache or dizziness. Reports nausea but no vomiting. Denies any chest pain, shortness of breath or any cough. Denies any abdominal pain, diarrhea or dysuria. Review of Systems Review of Systems: All systems reviewed & are unremarkable except as noted in HPI & below Physical Exam Physical Exam: General: A&Ox3, ill-appearing female HENT: NCAT, MMM, EOMI Eyes: PERRLA Neck: Supple, normal range of motion CVS: normal rate and rhythm Resp: b/l good breath sounds, right sided chest port site covered with dressing, no active discharge Abdomen: Soft, ND/NT Extremities: No c/c/e Neuro: face symmetric, no gross focal deficits appreciated Skin: warm and dry, no rashes/lesions/errythema MSK: normal ROM, no joint swelling/erythema Results & Data Results & Data ([facility]) Vital Signs (Past 12 Hours) Vital Signs Temp Pulse Pulse Resp BP Pulse Ox 08/27/21 12:07 37.4 C 81 18 108/68 95 08/27/21 07:34 36.5 C 147 H 20 117/79 96 08/27/21 05:44 155 H 08/27/21 05:42 36.5 C 149 H 18 113/71 94 (1) Follicular lymphoma grade I Lymphoma site: unspecified region Qualified Code(s): C82.00 - Follicular lymphoma grade I, unspecified site (2) Stroke CVA mechanism: unspecified Qualified Code(s): I63.9 - Cerebral infarction, unspecified
[2021-08-27] MEDS: VANCOMYCIN HCL 1,500 MG in SODIUM CHLORIDE 0.9% 500 ML IV SCH (17:17)
[2021-08-27] MEDS: ROSUVASTATIN CALCIUM 20 MG TAB PO SCH (21:21)
[2021-08-27] MEDS: VENLAFAXINE HCL XR 75 MG CAPXR PO SCH (21:22)
[2021-08-28] MEDS: CEFEPIME 2,000 MG in SYRINGE 0 ML IV SCH ×2 (04:47→16:45)
[2021-08-28] MEDS: AMIODARONE / D5W 360 MG/200 ML BAG IV SCH (04:47)
[2021-08-28] MEDS: LEVOTHYROXINE SODIUM 112 MCG TABLET PO SCH (05:56)
[2021-08-28 07:33] LABS: Creatinine Clr Calc Pharmacy 57.5 ml/min; Est GFR (African American) 61.9 ml/min; Est GFR (Non-African American) 53.4 ml/min
[2021-08-28] MEDS: GABAPENTIN 400 MG CAP PO SCH ×3 (08:34→19:55)
[2021-08-28] MEDS: METOPROLOL TARTRATE 25 MG TAB PO SCH ×2 (08:34→19:55)
[2021-08-28] MEDS: PANTOprazole 40 MG TAB PO SCH (08:35)
[2021-08-28] MEDS: ONDANSETRON INJ 2 MG/ML 2 ML VIAL IV PRN ×2 (08:40→18:40)
[2021-08-28] MEDS: ACETAMINOPHEN 325 MG TAB PO PRN ×3 (08:40→19:57)
--- NOTE | 2021-08-28 09:47 | Cardiology Progress Note ---
Date of Service August 28, 2021 Assessment & Plan (1) Paroxysmal atrial fibrillation with rapid ventricular response: (2) History of DVT (deep vein thrombosis): (3) Pancytopenia: (4) AML (acute myeloblastic leukemia): Plan: Patient is a very complex 75-year-old female with acute myelo blastic leukemia with pancytopenia who presented with acute weakness with possible neurologic event question neutropenic sepsis, in association with atrial fibrillation with rapid response Were initially paroxysmal but now controlled in sinus rhythm with IV amiodarone. EKG with chronic right bundle branch block, QT corrected 494 Recommendations: We will change amiodarone to oral initially at 200 mg 3 times per day discontinuing IV infusion when current bag complete. EKG ordered for a.m. Hematology/oncology issues remain a concern Would recommend repeating BMP and CBC Admission and Anticipated Discharge Date Admission Date: August 25, 2021 Subjective Patient was seen and examined, chart, medications, telemetry reviewed. Feels somewhat improved this morning less dyspneic. Sitting out of bed in chair. No atrial arrhythmias overnight on IV amiodarone No acute bleeding difficulties. No back pain or discomfort. Edema of the right arm and diffuse ecchymoses of both antecubital areas. No headache or visual changes. No further neurologic issues per patient Review of Systems Review of Systems: All systems reviewed & are unremarkable except as noted in Subjective Physical Exam Constitutional: + ill appearing; no acute distress Eyes: PERRL, conjunctivae normal, anicteric sclerae ENMT: external ear and nose normal, oropharynx normal Neck: trachea midline, no thyromegaly Respiratory: Auscultation: + crackles (Right base) Cardiovascular: Rate/Rhythm: regular rate and regular rhythm Heart Sounds: + gallop (S4) and + murmur (Grade 1/6 systolic) Palpation: normal PMI Vessels: no JVD Extremities: + edema (Bilateral upper extremity, right greater than left) Gastrointestinal (Abdomen): normal bowel sounds, soft, nontender, no hepatosplenomegaly Results & Data ([facility]) Vital Signs (Past 12 Hours) Vital Signs Temp Pulse Resp BP Pulse Ox 08/28/21 08:06 37.2 C 82 19 121/65 94 08/28/21 04:41 37.0 C 86 20 109/63 98 08/27/21 23:30 37.3 C 90 20 99/62 L 95 Laboratory Results Laboratory Results - last 24 hr 08/28/21 06:46 Creatinine 1.02 Est Cr Clr Drug Dosing 57.5 Est GFR ( Amer) 61.9 Est GFR (Non-Af Amer) 53.4
--- NOTE | 2021-08-28 11:24 | Palliative Care Consultation ---
Date of Consultation August 28, 2021 Assessment & Plan (1) Palliative care encounter: Ms. Link is a medically complex 75 year old female who presented to the [facility] with increased weakness, stroke like symptoms and new on set AF with RVR. 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 On admission, a head CT/CTA was performed and unremarkable and conservative measures recommended by [facility] Neurology after consultation. Due to her thrombocytopenia, including platelets < 50, she was not a candidate for tPa administration. She had a port placed with anticipation of starting chemotherapy under a regimen arranged by ; however the port became infected but has been cleaned out/wash in the OR and is cleared for use. Palliative medicine was consulted to discuss overall goals of care. I spoke with the patient after she returned from [facility]. She was AAOx3 and in no apparent distress. She was able to tell me why she was in the hospital and offered details about starting chemotherapy with Dr. Saucedo on Friday. I asked her how she felt entering her chemotherapy journey and what her goal intensions were. She indicated that spending time with her 10 grandchildren was most important to her. She stated that she loves her brother manas who lives just two doors away from her. She mentioned that she went to [facility] for a second opinion and they indicated that without treatment she had months of life and with life prolonging treatment could extend her life for a few years. She indicated that her granddaughter Laura is getting in 2022 and that is a driving force for her living. We discussed her code status and for now she would like to remain a full code. She did indicate that she has 4 adult children and her daughter Miya is the main decision maker should she not be able to make decisions. She has started legal POA paperwork and an advanced directive, but both of these items are not fully completed. I encouraged the importance of having these items in place in the event she is unreliable for decision making. I was able to talk with her daughter Olga, with Alisha's permission on the phone at [phone]. She lives in [place] but has frequent visits to [place] for her mother. She said that she has not really talked with her mother about what is important to her, but does know that the paperwork has been initiated. She is receptive to having further conversation with her about that and would like that paperwork completed so that further down the line it could be helpful to her and her brothers. For now, plan for chemotherapy to begin on Friday since her port has been cleared for use. Additionally, she is receptive to following, infrequently at first, meeting and establishing a relationship with the Palliative Medicine team in [place] for further guidance as she progresses through her journey. Fareed Recio made aware and will arrange outpatient follow up upon discharge. Thanks again for involving palliative to assist with this patient. (2) AML (acute myeloblastic leukemia): (3) Generalized weakness: (4) Atrial fibrillation with rapid ventricular response: History of Present Illness Reason for Consultation: goals of care Requesting Physician: Dr. Francisco Attending Physician: Walter Hoyt MD History of Present Illness Ms. Link is a medically complex 75 year old female who presented to the [facility] with increased weakness, stroke like symptoms and new on set AF with RVR. 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 On admission, a head CT/CTA was performed and unremarkable and conservative measures recommended by [facility] Neurology after consultation. Due to her thrombocytopenia, including platelets < 50, she was not a candidate for tPa administration. She had a port placed with anticipation of starting chemotherapy under a regimen arranged by ; however the port became infected but has been cleaned out/wash in the OR and is cleared for use. Palliative medicine was consulted to discuss overall goals of care. Please see A/P for further details. Thanks for involving palliative medicine with this unfortunate, yet quite pleasant female. Allergies Allergy/AdvReac Type Severity Reaction Status Date / Time No Known Allergies Allergy Verified 08/25/21 14:57 Home Medications Medication Instructions Recorded Confirmed Type fluticasone propionate 50 2 spray INTRANASAL QAM 08/03/19 08/25/21 History mcg/actuation nasal spray,suspension (Flonase Allergy Relief) gabapentin 300 mg capsule 400 mg PO TID 08/03/19 08/25/21 History (Neurontin) levothyroxine 112 mcg tablet 112 mcg PO QAM 08/03/19 08/25/21 History (Synthroid) pantoprazole 40 mg tablet,delayed 40 mg PO QAM 08/03/19 08/25/21 History release (Protonix) rosuvastatin 40 mg tablet (Crestor) 40 mg PO HS 08/03/19 08/25/21 History venlafaxine 75 mg capsule,extended 75 mg PO HS 08/03/19 08/25/21 History release 24 hr (Effexor XR) diclofenac sodium 1 % topical gel 4 g TOPICAL QID PRN 10/21/19 08/25/21 History (Voltaren Arthritis Pain) fluticasone furoate 100 1 inh INHALATION QAM PRN 05/02/21 08/25/21 History mcg-vilanterol 25 mcg/dose inhalation powder (Breo Ellipta) hydrochlorothiazide 12.5 mg capsule 12.5 mg PO DAILY 07/03/21 08/25/21 History oxycodone-acetaminophen 5 mg-325 1 tab PO Q6H PRN #14 tab 08/23/21 08/25/21 Rx mg tablet (Percocet) Patient History Medical History (Updated 08/28/21 @ 16:02 by BELINDA Bates) AML (acute myeloblastic leukemia) Asthma Well controlled CKD (chronic kidney disease), stage III COPD (chronic obstructive pulmonary disease) Diverticulitis Hx Esophageal reflux Essential tremor Follicular lymphoma History of DVT (deep vein thrombosis) 2007 > in setting prolonged inactivity from hospital admission HLD (hyperlipidemia) HTN (hypertension) Hypothyroidism Palliative care encounter Pancreatitis Hx Post-herpetic trigeminal neuralgia Reason for gabapentin Thoracic aortic aneurysm without rupture Ascending thoracic aorta is ectatic up to 4.4 cm (Previously measured 4.1 cm in 2012. Slowly increasing in size) per 06/2020 CTA, under surveillance by Dr. Cohn Surgical History H/O parotidectomy (11/2003) H/O: hysterectomy History of bone marrow biopsy (10/2011) Jul 2021 History of cataract surgery bilat History of colonoscopy (02/16/19) History of cystoscopy (06/02/12) History of dilatation and curettage History of ERCP (06/21/08) History of esophagogastroduodenoscopy (EGD) (03/06/16) History of excision of lesion (04/02/21) Right Superficial Parotid S/P cholecystectomy S/P insertion of IVC (inferior vena caval) filter (06/26/12) 2012 > [place] Filter Placement Right Groin Dr. Srivastava at [facility] Status post excisional biopsy (07/07/17) Left Inguinal Lymph Node Dr. Anderson at [facility] Status post fine needle aspiration (04/05/21) Left External Iliac Lymph Node under USG Dr. Coreas at [facility] Status post fine needle aspiration (02/08/19) Right Parotid Gland Lesion Family History Grandmother (Maternal) , Passed Age 52 due to Colon Cancer No problems noted. Father , Passed Age 72 due to Lung Cancer, occupation related No problems noted. Mother , Passed Age 84 of unknown cancer No problems noted. Brother , Passed Age 70 of unknown cancer No problems noted. Brother No problems noted. Daughter CLL (chronic lymphocytic leukemia) Son No problems noted. Son No problems noted. Son No problems noted. Aunt , Passed Age 70 due to Breast Cancer No problems noted. 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 How many Children do You have: 4 Other Information That Helps Us Care for You: No Feels Safe at Home: Yes Childhood Exposure to Second-Hand Smoke: Yes (father smoked in home) caffeine: Yes (cola daily) during the past year weight has: remained stable Dental Care, Regularly: Yes Physical Activity Frequency: Does not Exercise Assistive Devices: None Review of Systems Review of Systems: [place] System Assessment Scale: Pain: 0/3 SOB: 0/3 Anxiety: 0/3 Lack of Appetite: 0/3 Nausea: 0/3 Palliative Performance Scale: 50% Physical Exam Constitutional: + frail appearing and comfortable ENMT: Mouth: + dry oral mucous membranes Respiratory: normal respiratory effort Auscultation: + diminished lung sounds Cardiovascular: Rate/Rhythm: regular rate and regular rhythm Heart Sounds: normal S1 and normal S2 Extremities: normal capillary refill and + edema Gastrointestinal (Abdomen): Inspection/Auscultation: abdomen normal to inspection Percussion/Palpation: abdomen soft Skin: + pallor Psychiatric: Orientation: alert and oriented x 3 Insight: good insight Judgement: good judgement Results & Data ([facility]) Vital Signs (Past 12 Hours) Vital Signs Temp Pulse Pulse Resp BP Pulse Ox 08/28/21 10:30 78 08/28/21 08:06 37.2 C 82 19 121/65 94 08/28/21 04:41 37.0 C 86 20 109/63 98 08/27/21 23:30 37.3 C 90 20 99/62 L 95 PG Care Time/CCT Total # of Minutes Spent Total Time Spent with Patient: Total time spent is greater than 50% in coordination of care (as documented) at patient's floor/unit and/or counseling patient: 70 minutes with > 50% of that time spent assessing the pt, discussing goals of care with the patient and family, and collaborating with IDT Coding Level of Care Code 35161 Initial Inpt Care Lvl 3 Diagnoses Palliative care encounter Z51.5 AML (acute myeloblastic leukemia) C92.00 Generalized weakness R53.1 Atrial fibrillation with rapid ventricular response I48.91 Time Spent (min) 70
--- NOTE | 2021-08-28 11:56 | Ultrasound Report ---
US venous doppler UE RT CLINICAL HISTORY: RUE swelling Procedure: Right upper extremity real-time compression venous ultrasound with Duplex and Color Dopple r imaging. Utilizing real-time ultrasonic imaging multiple real time high-resolution ultrasonic images of the de ep venous system were performed from the forearm through the subclavian vein including evaluation of the jugular vein. Compression real time ultrasonic imaging was performed in addition to color Dopple r imaging and duplex Doppler ultrasound with velocity spectral profile analysis. There is normal compressibility of the deep venous system from the forearm through the subclavian vei n. Normal vascular flow is currently identified. No evidence of acute thrombosis is identified. The s uperficial thrombus is seen in the right thumb. Impression: Superficial thrombus in the right thumb without evidence of deep venous thrombus. ACT 112: Negative or not required by law. Electronically signed by: Magno Erickson M.D. 08/28/2021 11:54 AM
--- NOTE | 2021-08-28 12:04 | Ultrasound Report ---
US extremity non-vascular ltd CLINICAL HISTORY: RUE forearm swelling COMPARISON STUDY: No previous studies for comparison. TECHNIQUE: Sonography of the right forearm at site of swelling was performed. FINDINGS: Note is made of subcutaneous fluid of the right forearm and antecubital fossa. No fluid col lection is identified. No mass is identified. IMPRESSION: No right forearm fluid collection. Subcutaneous edema of the right forearm and antecubit al fossa, a nonspecific finding. ACT 112: Negative or not required by law. Electronically signed by: Stevenson Coreas M.D. 08/28/2021 12:03 PM
--- NOTE | 2021-08-28 12:41 | Surgery Progress Note ---
Date of Service August 28, 2021 Assessment & Plan (1) AML (acute myeloblastic leukemia): Plan: S/P port insertion, POD 4 pt is doing better, blood culture negative, plan, continue IV antibiotic, will F/U 08/28/2021 12: 40PM S/P port insertion, POD 5 pt is doing better, blood culture negative, no infection signs on port site, the port can be used any time, sign off today, please call with questions, thanks, Admission and Anticipated Discharge Date Admission Date: August 25, 2021 Subjective Patient was seen and examined, chart, medications, telemetry reviewed. Feels somewhat improved this morning less dyspneic. Sitting out of bed in chair. No atrial arrhythmias overnight on IV amiodarone No acute bleeding difficulties. No back pain or discomfort. Edema of the right arm and diffuse ecchymoses of both antecubital areas. No headache or visual changes. No further neurologic issues per patient 08/28/2021 12:38 PM doing better, no fever, Physical Exam Constitutional: WD/WN, vitals as above Eyes: PERRL, conjunctivae normal, anicteric sclerae Neck: trachea midline, no thyromegaly Respiratory: normal respiratory effort, lungs clear to auscultation Cardiovascular: RRR, no murmur, no edema Chest (Breasts): Additional Comments: port site- no redness, no drainage, Musculoskeletal: no cyanosis or clubbing, extremities motor strength 5/5 Neurologic: patellar DTR's 2+ bilat, sensation intact Psychiatric: A+Ox3, euthymic affect Results & Data ([facility]) Vital Signs (Past 12 Hours) Vital Signs Temp Pulse Pulse Resp BP Pulse Ox 08/28/21 10:30 78 08/28/21 08:06 37.2 C 82 19 121/65 94 08/28/21 04:41 37.0 C 86 20 109/63 98 Laboratory Results Abnormal lab results 08/25/21 Range/Units 15:15 Crossmatch See Detail
--- NOTE | 2021-08-28 13:45 | Electrocardiogram Report ---
Test Reason : Blood Pressure : / mmHG Vent. Rate : 081 BPM Atrial Rate : 081 BPM P-R Int : 160 ms QRS Dur : 124 ms QT Int : 426 ms P-R-T Axes : 054 -20 037 degrees QTc Int : 494 ms Normal sinus rhythm Right bundle branch block Abnormal ECG When compared with ECG of 27-AUG-2021 08:49, Sinus rhythm has replaced Atrial fibrillation Vent. rate has decreased BY 65 BPM Nonspecific T wave abnormality has replaced inverted T waves in Inferior leads Confirmed by Juan Atkinson ([id number]) on 08/28/2021 1:45:09 PM Referred By: REFERRED SELF Confirmed By:Juan Atkinson
[2021-08-28] MEDS: AMIODARONE 200 MG TAB PO SCH ×2 (13:47→19:55)
--- NOTE | 2021-08-28 14:57 | Hospitalist Progress Note ---
Date of Service August 28, 2021 Assessment & Plan (1) Stroke: Plan: Negative. 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 Neurology evaluation is pending. Decision regarding LP to be determined by neurology. This facility does not have the ability to give intrathecal chemotherapy as there is no oncology support here. However as per my discussion with the patient today she said she prefers to stay here as per the discussion among the team yesterday including the daughter. Discussed the case with her Oncologist, Dr. Saucedo, who is aware of the situation and agrees with the plan. He understands she will not be present for her scheduled treatment tomorrow. CT head revealed no evidence of stroke. High-grade stenosis at takeoff of left subclavian on CT angiogram. MRI of the brain was negative. Awaiting neurology input. Work with PT/OT. (2) Sepsis: Plan: No clear source has been identified. Cultures remain negative thus far. Continue with broad-spectrum antibiotics for neutropenic fever with vancomycin/cefepime. (3) Atrial fibrillation with rapid ventricular response: Plan: New onset A. fib with rapid ventricular response in setting of high fever, possible CVA, possible sepsis. Pulmonary embolism is a possible cause, however, she would not be able to tolerate a blood thinner with thrombocytopenia and is not working to breathe or reporting chest pain at this time. Appreciate cardiology input. Currently patient remains in sinus rhythm after Cardizem patient was started on amiodarone. Also remains on Lopressor 12.5 mg twice daily. Transthoracic echo was obtained. Right upper extremity swelling Patient likely had infiltration from the IV. Right upper extremity is more swollen and erythematous along with pain. Will obtain right upper extremity Doppler and nonvascular ultrasound. (4) Neutropenic fever: Plan: ANC improved to 1500. No clear infectious etiology, suspect fever possibly secondary to malignancy, but port may be another cause. Cont Vanc/Cefepime. (5) Follicular lymphoma grade I: Plan: Treatment plan per hematology this week after port placement 2 days ago. This will be delayed and patient is understanding of this. Dr. Saucedo is aware. (6) Pancytopenia: Plan: Patient reports being transfusion dependent for the last 2 months. 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 Hb appropriately responded to blood given. (7) History of DVT (deep vein thrombosis): Plan: Off Coumadin secondary to thrombocytopenia. (8) CKD (chronic kidney disease), stage III: Plan: Appears to be at her baseline. Continue to monitor closely (9) Hypothyroidism: Plan: TSH within normal limits. Cont home levothyroxine (10) Symptomatic anemia: Plan: Transfused 2 units of blood with some improvement. Hgb today at 8.7. Continue to monitor. (11) Generalized weakness: Plan: Morbid obesity and generalized deconditioning. Cannot sit up independently in bed. (12) DVT prophylaxis: Plan: SCDs Full Code as discussed with her on admission. Dispo-cont PCU monitoring Admission and Anticipated Discharge Date Admission Date: August 25, 2021 Subjective Patient is awake and alert, sitting in the recliner. Reports she is feeling better today. Energy is improved. Her appetite is improved. Denies any chest pain, shortness of breath, abdominal pain, diarrhea or dysuria. Nausea persists. No episodes of vomiting. Denies any headache or dizziness. Review of Systems Review of Systems: All systems reviewed & are unremarkable except as noted in HPI & below Physical Exam Physical Exam: General: A&Ox3, ill-appearing female HENT: NCAT, MMM, EOMI Eyes: PERRLA Neck: Supple, normal range of motion CVS: normal rate and rhythm Resp: b/l good breath sounds, right sided chest port site covered with dressing, no active discharge Abdomen: Soft, ND/NT Extremities: Right upper extremity is more swollen as compared to the left Neuro: face symmetric, no gross focal deficits appreciated Skin: warm and dry, no rashes/lesions/errythema MSK: normal ROM, no joint swelling/erythema Results & Data Results & Data ([facility]) Vital Signs (Past 12 Hours) Vital Signs Temp Pulse Pulse Resp BP Pulse Ox 08/28/21 12:00 36.6 C 85 20 111/66 92 08/28/21 10:30 78 08/28/21 08:06 37.2 C 82 19 121/65 94 08/28/21 04:41 37.0 C 86 20 109/63 98 (1) Follicular lymphoma grade I Lymphoma site: unspecified region Qualified Code(s): C82.00 - Follicular lymphoma grade I, unspecified site (2) Stroke CVA mechanism: unspecified Qualified Code(s): I63.9 - Cerebral infarction, unspecified
[2021-08-28 15:28] LABS: Hematocrit (blood only) 24.9 % (37-47); Hemoglobin 8.3 g/dL (12.0-16.0); Mean Corpuscular Hemoglobin 28.8 pg (25-34); Mean Corpuscular Hgb Conc 33.3 g/dL (32-36); Mean Corpuscular Volume 86.5 fL (80-100); Platelet Count 30 K/uL (130-400); RDW Coefficient of Variation 15.7 % (11.5-14.5); RDW Standard Deviation 50.2 fL (36.4-46.3); Red Blood Count 2.88 M/uL (4.2-5.4); White Blood Count 2.71 K/uL (4.8-10.8)
[2021-08-28 15:29] LABS: Basophils # (auto) 0.02 K/uL (0-0.2); Basophils % (auto) 0.7 %; Eosinophils # (auto) 0.02 K/uL (0-0.5); Eosinophils % (auto) 0.7 %; Immature Granulocytes # (auto) 0.02 K/uL (0.00-0.02); Immature Granulocytes % (auto) 0.7 %; Lymphocytes # (auto) 0.46 K/uL (1.2-3.4); Monocytes % (auto) 11.1 %; Neutrophils # (auto) 1.89 K/uL (1.4-6.5); Neutrophils % (auto) 69.8 %
[2021-08-28 15:30] LABS: Albumin Level 2.4 gm/dl (3.4-5.0); BUN Creatinine Ratio 20.3 (10-20); Calcium 8.4 mg/dl (8.5-10.1); Creatinine Clr Calc Pharmacy 55.3 ml/min; Est GFR (African American) 59.1 ml/min; Potassium 3.8 mmol/L (3.5-5.1)
[2021-08-28 15:32] LABS: Albumin Globulin Ratio 0.7 (0.9-2); Bilirubin,Total 0.6 mg/dl (0.2-1); Globulin 3.4 gm/dl (2.5-4.0); Total Protein 5.8 gm/dl (6.4-8.2)
[2021-08-28] MEDS ORDERED: [UNRECOGNIZED DRUG - REMARK] ONE (16:47)
[2021-08-28] MEDS: VANCOMYCIN HCL 1,500 MG in SODIUM CHLORIDE 0.9% 500 ML IV SCH (18:52)
[2021-08-28] MEDS: ROSUVASTATIN CALCIUM 20 MG TAB PO SCH (19:55)
[2021-08-28] MEDS: VENLAFAXINE HCL XR 75 MG CAPXR PO SCH (19:55)
[2021-08-29] MEDS: LEVOTHYROXINE SODIUM 112 MCG TABLET PO SCH (05:33)
[2021-08-29] MEDS: CEFEPIME 2,000 MG in SYRINGE 0 ML IV SCH (05:33)
[2021-08-29] MEDS: AMIODARONE 200 MG TAB PO SCH ×3 (07:25→21:28)
[2021-08-29] MEDS: METOPROLOL TARTRATE 25 MG TAB PO SCH ×2 (07:26→21:28)
[2021-08-29] MEDS: PANTOprazole 40 MG TAB PO SCH (07:28)
[2021-08-29] MEDS: GABAPENTIN 400 MG CAP PO SCH ×3 (07:30→21:28)
[2021-08-29 08:04] LABS: Hematocrit (blood only) 23.9 % (37-47); Hemoglobin 8.1 g/dL (12.0-16.0); Mean Corpuscular Hemoglobin 28.8 pg (25-34); Mean Corpuscular Hgb Conc 33.9 g/dL (32-36); Mean Corpuscular Volume 85.1 fL (80-100); Platelet Count 28 K/uL (130-400); RDW Coefficient of Variation 15.8 % (11.5-14.5); RDW Standard Deviation 49.6 fL (36.4-46.3); Red Blood Count 2.81 M/uL (4.2-5.4); White Blood Count 1.74 K/uL (4.8-10.8)
[2021-08-29 08:05] LABS: Basophils # (auto) 0.01 K/uL (0-0.2); Basophils % (auto) 0.6 %; Eosinophils # (auto) 0.01 K/uL (0-0.5); Eosinophils % (auto) 0.6 %; Hypogranular Neutrophils 1+; Immature Granulocytes # (auto) 0.01 K/uL (0.00-0.02); Immature Granulocytes % (auto) 0.6 %; Lymphocytes # (auto) 0.46 K/uL (1.2-3.4); Lymphocytes % (auto) 26.4 %; Monocytes # (auto) 0.21 K/uL (0.11-0.59); Monocytes % (auto) 12.1 %; Neutrophils # (auto) 1.04 K/uL (1.4-6.5); Neutrophils % (auto) 59.7 %; Platelet Estimate SIGNIFIC DECREASED (Normal); Toxic Vacuolation 1+
[2021-08-29 08:09] LABS: Calcium 8.5 mg/dl (8.5-10.1); Creatinine Clr Calc Pharmacy 56.9 ml/min; Est GFR (African American) 62.9 ml/min; Est GFR (Non-African American) 54.3 ml/min; Potassium 3.8 mmol/L (3.5-5.1)
[2021-08-29] MEDS: ACETAMINOPHEN 325 MG TAB PO PRN ×2 (09:48→21:26)
--- NOTE | 2021-08-29 10:51 | Cardiology Progress Note ---
Date of Service August 29, 2021 Assessment & Plan (1) Paroxysmal atrial fibrillation with rapid ventricular response: (2) History of DVT (deep vein thrombosis): (3) Pancytopenia: (4) AML (acute myeloblastic leukemia): Plan: Patient is a very complex 75-year-old female with acute myelo blastic leukemia with pancytopenia who presented with acute weakness with possible neurologic event question neutropenic sepsis, in association with atrial fibrillation with rapid response Were initially paroxysmal but now controlled in sinus rhythm with IV amiodarone. EKG with chronic right bundle branch block, QT corrected 494 Recommendations: Continue amiodarone 200 mg 3 times daily while in hospital, reduce to twice daily dosing when discharged Add spironolactone 12.5 mg/day in place of hydrochlorothiazide for edema as well as potassium levels Admission and Anticipated Discharge Date Admission Date: August 25, 2021 Subjective Patient was seen and examined, chart, medications, telemetry reviewed. Patient sitting out of bed in chair. No further arrhythmias overnight, no atri al fibrillation or bradycardia arrhythmias Oxygenating well on room air. No fevers chills Review of Systems Review of Systems: All systems reviewed & are unremarkable except as noted in Subjective Physical Exam Constitutional: no acute distress Eyes: PERRL, conjunctivae normal, anicteric sclerae ENMT: external ear and nose normal, oropharynx normal Neck: trachea midline, no thyromegaly Respiratory: Auscultation: lungs clear to auscultation bilaterally Cardiovascular: Rate/Rhythm: regular rate and regular rhythm Heart Sounds: + gallop (S4) and + murmur (Grade 1/6 systolic) Palpation: normal PMI Vessels: no JVD Extremities: + edema (Bilateral upper extremity, right greater than left) Gastrointestinal (Abdomen): normal bowel sounds, soft, nontender, no hepatosplenomegaly Results & Data ([facility]) Vital Signs (Past 12 Hours) Vital Signs Temp Pulse Pulse Pulse Resp BP Pulse Ox 08/29/21 07:47 68 08/29/21 07:42 36.8 C 72 16 102/63 95 08/29/21 06:56 36.7 C 70 18 104/64 96 08/29/21 04:31 36.9 C 71 18 102/58 L 95 08/28/21 23:00 37.5 C 67 67 18 112/67 93 Laboratory Results Laboratory Results - last 24 hr 08/25/21 08/28/21 08/28/21 15:15 15:05 15:05 WBC 2.71 L RBC 2.88 L Hgb 8.3 L Hct 24.9 L MCV 86.5 MCH 28.8 MCHC 33.3 RDW Std Deviation 50.2 H RDW Coeff of Rosamaria 15.7 H Plt Count 30 L Immature Gran % (Auto) 0.7 Neut % (Auto) 69.8 Lymph % (Auto) 17.0 [place] % (Auto) 11.1 Eos % (Auto) 0.7 Baso % (Auto) 0.7 Neut # (Auto) 1.89 Lymph # (Auto) 0.46 L [place] # (Auto) 0.30 Eos # (Auto) 0.02 Baso # (Auto) 0.02 Immature Gran # (Auto) 0.02 Hypogranular Neuts Toxic Vacuolation Platelet Estimate Sodium 133 L Potassium 3.8 Chloride 104 Carbon Dioxide 20 L Anion Gap 9.0 BUN 22 H Creatinine 1.06 Est Cr Clr Drug Dosing 55.3 Est GFR ( Amer) 59.1 Est GFR (Non-Af Amer) 51.0 BUN/Creatinine Ratio 20.3 H Glucose 135 H Calcium 8.4 L Total Bilirubin 0.6 AST 74 H ALT 44 Alkaline Phosphatase 80 Total Protein 5.8 L Albumin 2.4 L Globulin 3.4 Albumin/Globulin Ratio 0.7 L Blood Type A Positive Antibody Screen NEGATIVE Crossmatch See Detail 08/29/21 08/29/21 07:09 07:09 WBC 1.74 L RBC 2.81 L Hgb 8.1 L Hct 23.9 L MCV 85.1 MCH 28.8 MCHC 33.9 RDW Std Deviation 49.6 H RDW Coeff of Rosamaria 15.8 H Plt Count 28 L* Immature Gran % (Auto) 0.6 Neut % (Auto) 59.7 Lymph % (Auto) 26.4 [place] % (Auto) 12.1 Eos % (Auto) 0.6 Baso % (Auto) 0.6 Neut # (Auto) 1.04 L Lymph # (Auto) 0.46 L [place] # (Auto) 0.21 Eos # (Auto) 0.01 Baso # (Auto) 0.01 Immature Gran # (Auto) 0.01 Hypogranular Neuts 1+ Toxic Vacuolation 1+ Platelet Estimate SIGNIFIC DECREASED Sodium 134 L Potassium 3.8 Chloride 105 Carbon Dioxide 22 Anion Gap 6.0 BUN 19 H Creatinine 1.00 Est Cr Clr Drug Dosing 56.9 Est GFR ( Amer) 62.9 Est GFR (Non-Af Amer) 54.3 BUN/Creatinine Ratio 19.0 Glucose 116 H Calcium 8.5 Total Bilirubin AST ALT Alkaline Phosphatase Total Protein Albumin Globulin Albumin/Globulin Ratio Blood Type Antibody Screen Crossmatch
[2021-08-29] MEDS: SPIRONOLACTONE 12.5 MG TAB PO SCH (12:10)
[2021-08-29] MEDS ORDERED: FUROSEMIDE INJ 20 MG/2 ML VIAL IV ONE (16:48)
--- NOTE | 2021-08-29 18:42 | Hospitalist Progress Note ---
Date of Service August 29, 2021 Assessment & Plan (1) Stroke: Plan: per Dr. Hoyt' notes with addendum including the succeeding assessments and plans: Negative. 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 Neurology evaluation is pending. Decision regarding LP to be determined by neurology. This facility does not have the ability to give intrathecal chemotherapy as there is no oncology support here. However as per my discussion with the patient today she said she prefers to stay here as per the discussion among the team yesterday including the daughter. Discussed the case with her Oncologist, Dr. Saucedo, who is aware of the situation and agrees with the plan. He understands she will not be present for her scheduled treatment tomorrow. CT head revealed no evidence of stroke. High-grade stenosis at takeoff of left subclavian on CT angiogram. MRI of the brain was negative. Acute CVA continue ruled out Neurology consulted Strokelike symptoms improving Continue PT and OT evaluation (2) Sepsis: Plan: No clear source has been identified. Port replaced, doing well after procedure Cultures remain negative thus far. Repeat blood cultures today Continue with broad-spectrum antibiotics for neutropenic fever with vancomycin/cefepime. Generalized edema Right upper extremity Doppler study: Negative for DVT Check for Dopplers for left upper extremity and lower extremities bilaterally (3) Atrial fibrillation with rapid ventricular response: Plan: New onset A. fib with rapid ventricular response in setting of high fever, possible CVA, possible sepsis. Pulmonary embolism is a possible cause, however, she would not be able to tolerate a blood thinner with thrombocytopenia and is not working to breathe or reporting chest pain at this time. Has received Cardizem Continue amiodarone and spironolactone for now (4) Neutropenic fever: Plan: ANC 1000 Neutropenic precautions Continue vancomycin and cefepime Repeat blood cultures Monitor (5) Follicular lymphoma grade I: Plan: Treatment plan per hematology this week after port placement 2 days ago. This will be delayed and patient is understanding of this. Dr. Saucedo is aware. (6) Pancytopenia: Plan: Patient reports being transfusion dependent for the last 2 months. 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 Hb appropriately responded to blood given. Continue to monitor (7) History of DVT (deep vein thrombosis): Plan: Off Coumadin secondary to thrombocytopenia. (8) CKD (chronic kidney disease), stage III: Plan: Appears to be at her baseline. Continue to monitor closely (9) Hypothyroidism: Plan: TSH within normal limits. Cont home levothyroxine (10) Symptomatic anemia: Plan: Transfused 2 units of blood with some improvement. Hgb today at 8.1 Continue to monitor. (11) Generalized weakness: Plan: Morbid obesity and generalized deconditioning. Cannot sit up independently in bed. (12) DVT prophylaxis: Plan: SCDs Full Code as discussed with her on admission. Dispo-cont PCU monitoring plan of care discussed with patient and her [id number] in detail and at length all questions answered she is understanding, agreeable, comfortable with the plan of care Admission and Anticipated Discharge Date Admission Date: August 25, 2021 Subjective Follow-up for strokelike symptoms, sepsis, A. fib, recurrent follicular lymphoma, etc. Seen sitting up in bed, with patient starting at the bedside visiting Patient is not in distress, comfortable, pleasant, in good spirits States she feels improved today Was able to walk outside in the hallways with less weakness, had to use walker Ambulation is improving Speech and extremity strength also improving Reports increased swelling of bilateral arms and lower extremities, with some pain Denies fevers or chills, cough, headache, dizziness Abdominal pain, nausea vomiting, problems with urination or bowel movement No other symptoms Review of Systems Review of Systems: all noted and negative except for above Physical Exam Physical Exam: General- oriented x 3, not in distress, speaks in sentences with no effort or accessory muscle use Eyes- anicteric Neck- no JVD Lungs-mild rales at the bases, no wheezing Port in place, dressing in place, no bleeding or discharge Heart- normal rate, regular rhythm; no murmurs Abdomen- normal bowel sounds, nondistended, soft, nontender Extremities-upper extremities: Moderate edema on the left upper extremity, mild on the right, no erythema/warmth/tenderness Bilateral lower extremity edema, grade 1, no erythema/tenderness No calf tenderness Neuro- alert, oriented x 3; no gross focal neurologic deficits Skin- warm & dry Results & Data Results & Data ([facility]) Vital Signs (Past 12 Hours) Vital Signs Temp Pulse Pulse Resp BP Pulse Ox 08/29/21 15:22 84 08/29/21 15:09 36.5 C 73 18 106/65 99 08/29/21 11:48 36.7 C 78 18 127/67 97 08/29/21 07:47 68 08/29/21 07:42 36.8 C 72 16 102/63 95 08/29/21 06:56 36.7 C 70 18 104/64 96 all noted and reviewed including below (1) Stroke CVA mechanism: unspecified Qualified Code(s): I63.9 - Cerebral infarction, unspecified (2) Follicular lymphoma grade I Lymphoma site: unspecified region Qualified Code(s): C82.00 - Follicular lymphoma grade I, unspecified site
--- NOTE | 2021-08-29 20:59 | Ultrasound Report ---
LEFT UPPER EXTREMITY VENOUS DOPPLER ULTRASOUND CLINICAL HISTORY: Left upper extremity edema and pain, r/o dvt COMPARISON STUDY: No previous studies for comparison. TECHNIQUE: Sonography of the deep venous system of the left upper extremity was performed. FINDINGS: The left internal jugular, subclavian, axillary, brachial, radial, ulnar, cephalic and basi lic veins are patent. IMPRESSION: No deep venous thrombus within the left upper extremity. ACT 112: Negative or not required by law. Electronically signed by: Stevenson Coreas M.D. 08/29/2021 8:58 PM
--- NOTE | 2021-08-29 21:01 | Ultrasound Report ---
BILATERAL LOWER EXTREMITY VENOUS DOPPLER CLINICAL HISTORY: edema and pain, r/o dvt COMPARISON STUDY: Bilateral lower extremity venous Doppler ultrasound September 12, 2015. TECHNIQUE: Sonography of the deep venous system of the bilateral lower extremities was performed. Co mpression and augmentation were evaluated. FINDINGS: There is no deep venous thrombus within the right lower extremity. Note is made of nonocclu sive thrombus within the left common femoral and superficial femoral veins as well as the left greate r saphenous vein. Thrombus was shown within these vessels on exam of September 12, 2015. This thrombus is likely chronic. IMPRESSION: 1. No evidence of deep venous thrombus within the right lower extremity. 2. Nonocclusive thrombus within the left common femoral, superficial femoral and greater saphenous ve ins, similar to prior ultrasound. This is likely chronic. ACT 112: Negative or not required by law. Electronically signed by: Stevenson Coreas M.D. 08/29/2021 8:59 PM
[2021-08-29] MEDS: ROSUVASTATIN CALCIUM 20 MG TAB PO SCH (21:28)
[2021-08-29] MEDS: VENLAFAXINE HCL XR 75 MG CAPXR PO SCH (21:29)
[2021-08-30] MEDS: LEVOTHYROXINE SODIUM 112 MCG TABLET PO SCH (05:49)
[2021-08-30] MEDS: ACETAMINOPHEN 325 MG TAB PO PRN ×2 (07:59→20:20)
[2021-08-30] MEDS: METOPROLOL TARTRATE 25 MG TAB PO SCH ×2 (08:00→20:38)
[2021-08-30] MEDS: PANTOprazole 40 MG TAB PO SCH (08:01)
[2021-08-30] MEDS: SPIRONOLACTONE 12.5 MG TAB PO SCH (08:01)
[2021-08-30] MEDS: AMIODARONE 200 MG TAB PO SCH ×3 (08:01→20:35)
[2021-08-30] MEDS: GABAPENTIN 400 MG CAP PO SCH ×3 (08:01→20:37)
[2021-08-30 08:15] LABS: Creatinine Clr Calc Pharmacy 48.6 ml/min; Est GFR (African American) 52.1 ml/min; Est GFR (Non-African American) 44.9 ml/min
[2021-08-30] MEDS ORDERED: VANCOMYCIN CONSULT ACTIVE PRN (10:30)
[2021-08-30 10:42] LABS: Mean Corpuscular Hgb Conc 32.9 g/dL (32-36)
[2021-08-30 10:50] LABS: Hematocrit (blood only) 24.9 % (37-47); Hemoglobin 8.2 g/dL (12.0-16.0); Mean Corpuscular Hemoglobin 28.7 pg (25-34); Mean Corpuscular Volume 87.1 fL (80-100); RDW Standard Deviation 51.8 fL (36.4-46.3); Red Blood Count 2.86 M/uL (4.2-5.4); White Blood Count 1.91 K/uL (4.8-10.8)
[2021-08-30 10:53] LABS: BUN Creatinine Ratio 15.6 (10-20); Calcium 8.2 mg/dl (8.5-10.1); Creatinine Clr Calc Pharmacy 48.6 ml/min; Est GFR (African American) 52.1 ml/min; Est GFR (Non-African American) 44.9 ml/min; Potassium 3.4 mmol/L (3.5-5.1)
[2021-08-30] MEDS ORDERED: DAPTOmycin 400 MG in SYRINGE 0 ML IV ONE (11:00)
[2021-08-30 11:03] LABS: Platelet Count 32 K/uL (130-400)
--- NOTE | 2021-08-30 11:24 | Cardiology Progress Note ---
Date of Service August 30, 2021 Assessment & Plan (1) Paroxysmal atrial fibrillation with rapid ventricular response: (2) History of DVT (deep vein thrombosis): (3) Pancytopenia: (4) AML (acute myeloblastic leukemia): Plan: Patient is a very complex 75-year-old female with acute myelo blastic leukemia with pancytopenia who presented with acute weakness with possible neurologic event question neutropenic sepsis, in association with atrial fibrillation with rapid response Were initially paroxysmal but now controlled in sinus rhythm with amiodarone. EKG with chronic right bundle branch block, QT corrected 494 Recommendations: Continue amiodarone 200 mg 3 times daily while in hospital, reduce to twice daily dosing when discharged EKG in a.m. Continue spironolactone 12.5 mg/day in place of hydrochlorothiazide for edema as well as potassium levels Admission and Anticipated Discharge Date Admission Date: August 25, 2021 Subjective Patient seen and examined, chart, medications, telemetry reviewed. No arrhythmias overnight. Sitting out of bed in chair without acute complaint. Physical Exam Neck: trachea midline, no thyromegaly Respiratory: Auscultation: lungs clear to auscultation bilaterally Cardiovascular: Rate/Rhythm: regular rate and regular rhythm Heart Sounds: + gallop (S4) and + murmur (Grade 1/6 systolic) Palpation: normal PMI Vessels: no JVD Extremities: + edema (Bilateral upper extremity, right greater than left) Gastrointestinal (Abdomen): normal bowel sounds, soft, nontender, no hepatosplenomegaly Results & Data ([facility]) Vital Signs (Past 12 Hours) Vital Signs Temp Pulse Pulse Resp BP BP Pulse Ox 08/30/21 07:49 61 08/30/21 03:11 36.8 C 64 18 123/66 98 08/29/21 23:27 37.4 C 75 17 98/58 L 95 Laboratory Results Laboratory Results - last 24 hr 08/30/21 08/30/21 08/30/21 06:33 06:37 06:37 WBC 1.91 L RBC 2.86 L Hgb 8.2 L Hct 24.9 L MCV 87.1 MCH 28.7 MCHC 32.9 RDW Std Deviation 51.8 H RDW Coeff of Rosamaria 16.0 H Plt Count 32 L Sodium 135 L Potassium 3.4 L Chloride 103 Carbon Dioxide 26 Anion Gap 6.0 BUN 18 Creatinine 1.17 1.17 Est Cr Clr Drug Dosing 48.6 48.6 Est GFR ( Amer) 52.1 52.1 Est GFR (Non-Af Amer) 44.9 44.9 BUN/Creatinine Ratio 15.6 Glucose 106 H Calcium 8.2 L
[2021-08-30] MEDS: CEFEPIME 2,000 MG in SYRINGE 0 ML IV SCH ×2 (11:32→23:59)
[2021-08-30 11:43] LABS: Basophils # (auto) 0.02 K/uL (0-0.2); Eosinophils # (auto) 0.01 K/uL (0-0.5); Eosinophils % (auto) 0.5 %; Immature Granulocytes # (auto) 0.01 K/uL (0.00-0.02); Immature Granulocytes % (auto) 0.5 %; Lymphocytes # (auto) 0.58 K/uL (1.2-3.4); Lymphocytes % (auto) 30.4 %; Monocytes # (auto) 0.32 K/uL (0.11-0.59); Monocytes % (auto) 16.8 %; Neutrophils # (auto) 0.97 K/uL (1.4-6.5); Neutrophils % (auto) 50.8 %; Ovalocytes 1+
[2021-08-30] MEDS ORDERED: POTASSIUM CHLORIDE CRTAB 20 MEQ TABCR PO STA (13:19)
--- NOTE | 2021-08-30 13:19 | Hospitalist Progress Note ---
Date of Service August 30, 2021 Assessment & Plan (1) Stroke: Plan: per Dr. Hoyt' notes with addendum including the succeeding assessments and plans: Negative. 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 Neurology evaluation is pending. Decision regarding LP to be determined by neurology. This facility does not have the ability to give intrathecal chemotherapy as there is no oncology support here. However as per my discussion with the patient today she said she prefers to stay here as per the discussion among the team yesterday including the daughter. Discussed the case with her Oncologist, Dr. Saucedo, who is aware of the situation and agrees with the plan. He understands she will not be present for her scheduled treatment tomorrow. CT head revealed no evidence of stroke. High-grade stenosis at takeoff of left subclavian on CT angiogram. MRI of the brain was negative. Acute CVA continue ruled out Neurology consulted Strokelike symptoms mostly resolved Symptoms most likely secondary to anemia and fever Management per below Continue PT and OT Patient prefers to be discharged to home with home health services upon the time of discharge (2) Sepsis: Plan: No clear source has been identified. Port replaced, doing well after procedure Afebrile times at least 2 to 3 days Cultures remain negative thus far. Repeat blood cultures 08/29/2021 pending Continue with broad-spectrum antibiotics for neutropenic fever with vancomycin/cefepime. ID consulted Generalized edema Right upper extremity Doppler study: Negative for DVT Check for Dopplers for left upper extremity and lower extremities bilaterally: Negative Lasix given yesterday With good response Continue Aldactone 12.5 mg p.o. daily for now Monitor closely (3) Symptomatic anemia: Plan: Transfused 2 units of blood with improvement of symptoms Hgb today at 8.1 Continue to monitor. (4) Atrial fibrillation with rapid ventricular response: Plan: New onset A. fib with rapid ventricular response in setting of high fever, possible CVA, possible sepsis. Pulmonary embolism is a possible cause, however, she would not be able to tolerate a blood thinner with thrombocytopenia and is not working to breathe or reporting chest pain at this time. Has received Cardizem Continue metoprolol, amiodarone and spironolactone for now (5) Neutropenic fever: Plan: ANC 970 Neutropenic precautions Continue vancomycin and cefepime Repeat blood cultures ID consulted (6) Follicular lymphoma grade I: Plan: Treatment plan per hematology this week after port placement 2 days ago. This will be delayed and patient is understanding of this. Dr. Saucedo is aware. (7) Pancytopenia: Plan: Patient reports being transfusion dependent for the last 2 months. 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 Hb appropriately responded to blood given. Continue to monitor (8) History of DVT (deep vein thrombosis): Plan: Off Coumadin secondary to thrombocytopenia. (9) CKD (chronic kidney disease), stage III: Plan: Appears to be at her baseline. Continue to monitor closely (10) Hypothyroidism: Plan: TSH within normal limits. Cont home levothyroxine (11) Generalized weakness: Plan: Improving Continue PT and OT while admitted (12) DVT prophylaxis: Plan: SCDs Full Code as discussed with her on admission. Dispo-patient prefers to be discharged to home when medically stable with home services plan of care discussed with patient in detail and at length all questions answered she is understanding, agreeable, comfortable with the plan of care Admission and Anticipated Discharge Date Admission Date: August 25, 2021 Subjective Follow-up for febrile neutropenia, atrial fibrillation, etc. Seen sitting bedside chair, comfortable, not in distress, in good spirits, smiling States she feels okay overall today Breathing is better Upper extremity and lower extremity swelling and pain improving per patient Ambulating to the bathroom with no problems no chest pain, dyspnea, palpitations, dizziness No headache, cough, abdominal pain, nausea vomiting, problems with urination or bowel movement No other symptoms Review of Systems Review of Systems: all noted and negative except for above Physical Exam Physical Exam: General- oriented x 3, not in distress, speaks in sentences with no effort or accessory muscle use Eyes- anicteric Neck- no JVD Lungs- clear breath sounds bilaterally, no rales/wheezes Port in place: No bleeding or discharge, erythema, hematoma Heart- normal rate, regular rhythm; no murmurs Abdomen- normal bowel sounds, nondistended, soft, nontender Extremities-left upper extremity: Mild to moderate edema, no erythema/warmth/tenderness Right upper extremity: No edema Bilateral lower extremities: Positive mild edema, no erythema/warmth/tenderness Neuro- alert, oriented x 3; no gross focal neurologic deficits Skin- warm & dry Results & Data Results & Data ([facility] [place]) Vital Signs (Past 12 Hours) Vital Signs Temp Pulse Pulse Resp BP Pulse Ox 08/30/21 07:49 61 08/30/21 03:11 36.8 C 64 18 123/66 98 all noted and reviewed including below (1) Stroke CVA mechanism: unspecified Qualified Code(s): I63.9 - Cerebral infarction, unspecified (2) Follicular lymphoma grade I Lymphoma site: unspecified region Qualified Code(s): C82.00 - Follicular lymphoma grade I, unspecified site
[2021-08-30] MEDS: VENLAFAXINE HCL XR 75 MG CAPXR PO SCH (20:35)
[2021-08-30] MEDS: ROSUVASTATIN CALCIUM 20 MG TAB PO SCH (20:37)
[2021-08-31] MEDS: LEVOTHYROXINE SODIUM 112 MCG TABLET PO SCH (06:45)
[2021-08-31 07:17] LABS: Hematocrit (blood only) 23.6 % (37-47); Hemoglobin 7.8 g/dL (12.0-16.0); Mean Corpuscular Hemoglobin 28.9 pg (25-34); Mean Corpuscular Hgb Conc 33.1 g/dL (32-36); Mean Corpuscular Volume 87.4 fL (80-100); RDW Coefficient of Variation 15.9 % (11.5-14.5); White Blood Count 1.19 K/uL (4.8-10.8)
[2021-08-31 07:19] LABS: Mean Platelet Volume 10.2 fL (7.4-10.4); Platelet Count 37 K/uL (130-400)
[2021-08-31 07:37] LABS: Basophils # (auto) 0.02 K/uL (0-0.2); Basophils % (auto) 1.7 %; Eosinophils # (auto) 0.02 K/uL (0-0.5); Eosinophils % (auto) 1.7 %; Monocytes # (auto) 0.22 K/uL (0.11-0.59); Monocytes % (auto) 18.5 %; Neutrophils # (auto) 0.43 K/uL (1.4-6.5); Neutrophils % (auto) 36.1 %; Ovalocytes 1+
[2021-08-31 07:56] LABS: Calcium 8.5 mg/dl (8.5-10.1); Creatinine Clr Calc Pharmacy 55.7 ml/min; Est GFR (African American) 62.9 ml/min; Est GFR (Non-African American) 54.3 ml/min; Potassium 3.7 mmol/L (3.5-5.1)
[2021-08-31] MEDS: METOPROLOL TARTRATE 25 MG TAB PO SCH ×2 (08:18→21:15)
[2021-08-31] MEDS: GABAPENTIN 400 MG CAP PO SCH ×3 (08:18→21:14)
[2021-08-31] MEDS: AMIODARONE 200 MG TAB PO SCH ×2 (08:18→21:14)
[2021-08-31] MEDS: PANTOprazole 40 MG TAB PO SCH (08:19)
[2021-08-31] MEDS: SPIRONOLACTONE 12.5 MG TAB PO SCH (08:19)
--- NOTE | 2021-08-31 10:26 | Cardiology Progress Note ---
Date of Service August 31, 2021 Assessment & Plan (1) Paroxysmal atrial fibrillation with rapid ventricular response: (2) History of DVT (deep vein thrombosis): (3) Pancytopenia: (4) AML (acute myeloblastic leukemia): Plan: Patient is a very complex 75-year-old female with acute myelo blastic leukemia with pancytopenia who presented with acute weakness with possible neurologic event question neutropenic sepsis, in association with atrial fibrillation with rapid response Were initially paroxysmal but now controlled in sinus rhythm with amiodarone. EKG with chronic right bundle branch block, QT corrected 503 Recommendations: Reduce amiodarone to 200 mg twice per day all the medical therapies to be continued Admission and Anticipated Discharge Date Admission Date: August 25, 2021 Subjective Patient was seen and examined, chart, medications, telemetry reviewed. Patient sitting out of bed in chair without difficulty. No arrhythmias on telemetry. Only complaint mild erythema right wrist Review of Systems Review of Systems: All systems reviewed & are unremarkable except as noted in Subjective Physical Exam Constitutional: no acute distress Eyes: PERRL, conjunctivae normal, anicteric sclerae Neck: trachea midline, no thyromegaly Respiratory: Auscultation: lungs clear to auscultation bilaterally Cardiovascular: Rate/Rhythm: regular rate and regular rhythm Heart Sounds: + murmur (Grade 1/6 systolic) Palpation: normal PMI Vessels: no JVD Extremities: + edema (Improved upper extremity edema) Gastrointestinal (Abdomen): normal bowel sounds, soft, nontender, no hepatosplenomegaly Skin: Area of erythema and induration Right wrist new from day prior Psychiatric: A+Ox3, euthymic affect Results & Data ([facility]) Vital Signs (Past 12 Hours) Vital Signs Temp Pulse Resp BP Pulse Ox 08/31/21 08:07 36.7 C 76 18 108/66 94 08/31/21 04:27 36.6 C 64 20 135/75 97 08/31/21 00:10 36.7 C 65 20 136/65 96 Laboratory Results Laboratory Results - last 24 hr 08/30/21 08/30/21 08/31/21 06:37 06:37 06:29 WBC 1.91 L 1.19 L RBC 2.86 L 2.70 L Hgb 8.2 L 7.8 L Hct 24.9 L 23.6 L MCV 87.1 87.4 MCH 28.7 28.9 MCHC 32.9 33.1 RDW Std Deviation 51.8 H 51.0 H RDW Coeff of Rosamaria 16.0 H 15.9 H Plt Count 32 L 37 L MPV 10.2 Immature Gran % (Auto) 0.5 0.0 Neut % (Auto) 50.8 36.1 Lymph % (Auto) 30.4 42.0 Aiken % (Auto) 16.8 18.5 Eos % (Auto) 0.5 1.7 Baso % (Auto) 1.0 1.7 Neut # (Auto) 0.97 L* 0.43 L* Lymph # (Auto) 0.58 L 0.50 L Aiken # (Auto) 0.32 0.22 Eos # (Auto) 0.01 0.02 Baso # (Auto) 0.02 0.02 Immature Gran # (Auto) 0.01 0.00 Ovalocytes 1+ 1+ Sodium 135 L Potassium 3.4 L Chloride 103 Carbon Dioxide 26 Anion Gap 6.0 BUN 18 Creatinine 1.17 Est Cr Clr Drug Dosing 48.6 Est GFR ( Amer) 52.1 Est GFR (Non-Af Amer) 44.9 BUN/Creatinine Ratio 15.6 Glucose 106 H Calcium 8.2 L 08/31/21 06:29 WBC RBC Hgb Hct MCV MCH MCHC RDW Std Deviation RDW Coeff of Rosamaria Plt Count MPV Immature Gran % (Auto) Neut % (Auto) Lymph % (Auto) Aiken % (Auto) Eos % (Auto) Baso % (Auto) Neut # (Auto) Lymph # (Auto) Aiken # (Auto) Eos # (Auto) Baso # (Auto) Immature Gran # (Auto) Ovalocytes Sodium 136 Potassium 3.7 Chloride 104 Carbon Dioxide 27 Anion Gap 5.0 BUN 18 Creatinine 1.00 Est Cr Clr Drug Dosing 55.7 Est GFR ( Amer) 62.9 Est GFR (Non-Af Amer) 54.3 BUN/Creatinine Ratio 18.0 Glucose 103 H Calcium 8.5
[2021-08-31] MEDS: CEFEPIME 2,000 MG in SYRINGE 0 ML IV SCH (11:23)
--- NOTE | 2021-08-31 13:45 | Electrocardiogram Report ---
Test Reason : Blood Pressure : / mmHG Vent. Rate : 065 BPM Atrial Rate : 065 BPM P-R Int : 190 ms QRS Dur : 132 ms QT Int : 484 ms P-R-T Axes : 037 -21 005 degrees QTc Int : 503 ms Normal sinus rhythm Right bundle branch block Inferior infarct , age undetermined Abnormal ECG When compared with ECG of 28-AUG-2021 06:53, No significant change was found Confirmed by Juan Atkinson ([id number]) on 08/31/2021 1:44:42 PM Referred By: REFERRED SELF Confirmed By:Juan Atkinson
--- NOTE | 2021-08-31 14:40 | Hospitalist Progress Note ---
Date of Service August 31, 2021 Assessment & Plan (1) Stroke: Plan: per Dr. Hoyt' notes with addendum including the succeeding assessments and plans: Negative. There is concern for LABEL TACKER involvement of the lymphoma that could be contributing to her symptoms. Neurology evaluation is pending. Decision regarding LP to be determined by neurology. This facility does not have the ability to give intrathecal chemotherapy as there is no oncology support here. However as per my discussion with the patient today she said she prefers to stay here as per the discussion among the team yesterday including the daughter. Discussed the case with her Oncologist, Dr. Saucedo, who is aware of the situation and agrees with the plan. He understands she will not be present for her scheduled treatment tomorrow. CT head revealed no evidence of stroke. High-grade stenosis at takeoff of left subclavian on CT angiogram. MRI of the brain was negative. Acute CVA continue ruled out Neurology consulted Strokelike symptoms mostly resolved Symptoms most likely secondary to anemia and fever Management per below Continue PT and OT Patient prefers to be discharged to home with home health services upon the time of discharge (2) Sepsis: Plan: No clear source has been identified. Port replaced, doing well after procedure Remains afebrile Cultures remain negative thus far. Repeat blood cultures Continue with broad-spectrum antibiotics for neutropenic fever with vancomycin/cefepime. ID consulted Generalized edema Right upper extremity Doppler study: Negative for DVT Check for Dopplers for left upper extremity and lower extremities bilaterally: Negative Improving Continue Aldactone 12.5 mg p.o. daily for now Monitor closely (3) Symptomatic anemia: Plan: Transfused 2 units of blood with improvement of symptoms Hgb 7.8 Continue to monitor. (4) Atrial fibrillation with rapid ventricular response: Plan: New onset A. fib with rapid ventricular response in setting of high fever, possible CVA, possible sepsis. Pulmonary embolism is a possible cause, however, she would not be able to tolerate a blood thinner with thrombocytopenia and is not working to breathe or reporting chest pain at this time. Has received Cardizem Continue metoprolol, amiodarone and spironolactone for now Amiodarone reduced to 200 mg twice daily for QT of 503 Monitor closely (5) Neutropenic fever: Plan: ANC 400 Neutropenic precautions Continue vancomycin and cefepime Repeat blood cultures ID consulted (6) Follicular lymphoma grade I: Plan: Treatment plan per hematology this week after port placement 2 days ago. This will be delayed and patient is understanding of this. Dr. Saucedo is aware. (7) Pancytopenia: Plan: Patient reports being transfusion dependent for the last 2 months. 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 Hb appropriately responded to blood given. --ANC decreasing Will discuss with Dr. Saucedo (8) History of DVT (deep vein thrombosis): Plan: Off Coumadin secondary to thrombocytopenia. Encouraged to ambulate frequently (9) CKD (chronic kidney disease), stage III: Plan: Appears to be at her baseline. Continue to monitor closely (10) Hypothyroidism: Plan: TSH within normal limits. Cont home levothyroxine (11) Generalized weakness: Plan: Improving Continue PT and OT while admitted (12) DVT prophylaxis: Plan: SCDs Full Code as discussed with her on admission. Dispo-patient prefers to be discharged to home when medically stable with home services plan of care discussed with patient in detail and at length all questions answered she is understanding, agreeable, comfortable with the plan of care Admission and Anticipated Discharge Date Admission Date: August 25, 2021 Subjective Follow-up for febrile neutropenia, pancytopenia, A. fib, etc. Seen sitting up at the edge of the bed, in good spirits, smiling, bright and alert States she feels improving day by day Able to ambulate inside her room, no dyspnea Denies fevers or chills, headache, dizziness, chest pain, cough, abdominal pain, nausea vomiting, problems with urination or bowel movement No bleeding Denies other symptoms Review of Systems Review of Systems: all noted and negative except for above Physical Exam Physical Exam: General- oriented x 3, not in distress, speaks in sentences with no effort or accessory muscle use Eyes- anicteric Neck- no JVD Lungs- clear BS bilaterally, no crackles or wheezing Port on the right chest wall in place, no bleeding or discharge Heart- normal rate, regular rhythm; no murmurs Abdomen- normal bowel sounds, nondistended, soft, nontender Extremities-left upper extremity edema continues to improve Left lower extremity edema also improving No erythema/warmth/tenderness Neuro- alert, oriented x 3; no gross focal neurologic deficits Skin- warm & dry Results & Data Results & Data ([facility]) Vital Signs (Past 12 Hours) Vital Signs Temp Pulse Resp BP Pulse Ox 08/31/21 11:56 36.9 C 62 16 127/73 95 08/31/21 08:07 36.7 C 76 18 108/66 94 08/31/21 04:27 36.6 C 64 20 135/75 97 all noted and reviewed including below (1) Stroke CVA mechanism: unspecified Qualified Code(s): I63.9 - Cerebral infarction, unspecified (2) Follicular lymphoma grade I Lymphoma site: unspecified region Qualified Code(s): C82.00 - Follicular lymphoma grade I, unspecified site
[2021-08-31] MEDS: ROSUVASTATIN CALCIUM 20 MG TAB PO SCH (21:15)
[2021-08-31] MEDS: VENLAFAXINE HCL XR 75 MG CAPXR PO SCH (21:15)
[2021-08-31] MEDS ORDERED: HEPARIN 100 UNIT/ML 5ML FLUSH FLUSH PRN (22:57)
[2021-09-01] MEDS: LEVOTHYROXINE SODIUM 112 MCG TABLET PO SCH (06:13)
[2021-09-01] MEDS: METOPROLOL TARTRATE 25 MG TAB PO SCH ×2 (08:22→20:20)
[2021-09-01] MEDS: AMIODARONE 200 MG TAB PO SCH ×2 (08:22→20:20)
[2021-09-01] MEDS: PANTOprazole 40 MG TAB PO SCH (08:23)
[2021-09-01] MEDS: GABAPENTIN 400 MG CAP PO SCH ×3 (08:23→20:19)
[2021-09-01] MEDS: SPIRONOLACTONE 12.5 MG TAB PO SCH (08:23)
[2021-09-01 10:41] LABS: Hematocrit (blood only) 24.1 % (37-47); Hemoglobin 8.1 g/dL (12.0-16.0); Mean Corpuscular Hemoglobin 29.1 pg (25-34); Mean Corpuscular Hgb Conc 33.6 g/dL (32-36); Mean Corpuscular Volume 86.7 fL (80-100); RDW Coefficient of Variation 15.6 % (11.5-14.5); RDW Standard Deviation 50.5 fL (36.4-46.3); Red Blood Count 2.78 M/uL (4.2-5.4); White Blood Count 1.15 K/uL (4.8-10.8)
[2021-09-01 10:45] LABS: Mean Platelet Volume 10.8 fL (7.4-10.4); Platelet Count 48 K/uL (130-400)
[2021-09-01 11:08] LABS: Basophils # (auto) 0.03 K/uL (0-0.2); Basophils % (auto) 2.6 %; Eosinophils # (auto) 0.01 K/uL (0-0.5); Eosinophils % (auto) 0.9 %; Immature Granulocytes # (auto) 0.03 K/uL (0.00-0.02); Immature Granulocytes % (auto) 2.6 %; Lymphocytes # (auto) 0.59 K/uL (1.2-3.4); Lymphocytes % (auto) 51.3 %; Monocytes # (auto) 0.18 K/uL (0.11-0.59); Monocytes % (auto) 15.7 %; Neutrophils # (auto) 0.31 K/uL (1.4-6.5); Neutrophils % (auto) 26.9 %; Ovalocytes 1+
--- NOTE | 2021-09-01 18:25 | Hospitalist Progress Note ---
Date of Service September 01, 2021 Assessment & Plan (1) Stroke: Plan: per Dr. Hoyt' notes with addendum including the succeeding assessments and plans: Negative. 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 Neurology evaluation is pending. Decision regarding LP to be determined by neurology. This facility does not have the ability to give intrathecal chemotherapy as there is no oncology support here. However as per my discussion with the patient today she said she prefers to stay here as per the discussion among the team yesterday including the daughter. Discussed the case with her Oncologist, Dr. Saucedo, who is aware of the situation and agrees with the plan. He understands she will not be present for her scheduled treatment tomorrow. CT head revealed no evidence of stroke. High-grade stenosis at takeoff of left subclavian on CT angiogram. MRI of the brain was negative. Acute CVA continue ruled out Neurology consulted Strokelike symptoms mostly resolved Symptoms most likely secondary to anemia and fever Management per below Continue PT and OT Patient prefers to be discharged to home with home health services upon the time of discharge (2) Sepsis: Plan: No clear source has been identified. Port replaced, doing well after procedure Afebrile Cultures remain negative thus far. Repeat blood cultures: Negative Received IV vancomycin/cefepime. ID consulted-recommend to discontinue IV antibiotics at this point Monitor closely Pancytopenia Neutropenia worsening Discussed with substance abuse specialist Dr. Saucedo, likely secondary to underlying lymphoma, recommend to discharge on prophylactic antibiotics Continue neutropenic precautions Hemoglobin, platelet stable Generalized edema Right upper extremity Doppler study: Negative for DVT Dopplers for left upper extremity and lower extremities bilaterally: Negative Improving daily Continue Aldactone 12.5 mg p.o. daily for now Monitor closely (3) Symptomatic anemia: Plan: Transfused 2 units of blood with improvement of symptoms Hgb 8.1 Continue to monitor. (4) Atrial fibrillation with rapid ventricular response: Plan: New onset A. fib with rapid ventricular response in setting of high fever, possible CVA, possible sepsis. Pulmonary embolism is a possible cause, however, she would not be able to tolerate a blood thinner with thrombocytopenia and is not working to breathe or reporting chest pain at this time. Has received Cardizem Continue metoprolol, amiodarone and spironolactone for now Amiodarone reduced to 200 mg twice daily for QT of 503 Monitor closely (5) Neutropenic fever: Plan: ANC 310 Neutropenic precautions Management per above (6) Follicular lymphoma grade I: Plan: Treatment plan per hematology this week after port placement 2 days ago. This will be delayed and patient is understanding of this. Dr. Suacedo is aware. (7) Pancytopenia: Plan: Patient reports being transfusion dependent for the last 2 months. 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 Hb appropriately responded to blood given. Management per above (8) History of DVT (deep vein thrombosis): Plan: Off Coumadin secondary to thrombocytopenia. Encouraged to ambulate frequently (9) CKD (chronic kidney disease), stage III: Plan: Appears to be at her baseline. Continue to monitor closely (10) Hypothyroidism: Plan: TSH within normal limits. Cont home levothyroxine (11) Generalized weakness: Plan: Improving Continue PT and OT while admitted (12) DVT prophylaxis: Plan: SCDs Full Code as discussed with her on admission. Dispo-patient prefers to be discharged to home when medically stable with home services plan of care discussed with patient in detail and at length all questions answered she is understanding, agreeable, comfortable with the plan of care Admission and Anticipated Discharge Date Admission Date: August 25, 2021 Subjective Follow-up for febrile neutropenia, pancytopenia, etc. Seen sitting up in bed, comfortable, not in distress, in good spirits States she continues to feel improved No fevers or chills, headache, dizziness, cough, abdominal pain, problems with urination or bowel movement Able to ambulate in the room with no problems No other symptoms Review of Systems Review of Systems: all noted and negative except for above Physical Exam Physical Exam: General- oriented x 3, not in distress, speaks in sentences with no effort or accessory muscle use Eyes- anicteric Neck- no JVD Lungs- clear BS bilaterally, no rales noted Heart- normal rate, regular rhythm; no murmurs Abdomen- normal bowel sounds, nondistended, soft, nontender Extremities-bilateral upper extremity edema: Improving, mild Bilateral lower extremity edema improving, mild Neuro- alert, oriented x 3; no gross focal neurologic deficits Skin- warm & dry Results & Data Results & Data ([facility]) Vital Signs (Past 12 Hours) Vital Signs Temp Pulse Pulse Resp BP BP Pulse Ox 09/01/21 15:39 36.7 C 66 16 144/75 H 97 09/01/21 13:11 36.6 C 62 18 125/75 95 09/01/21 08:22 78 16 117/67 98 09/01/21 07:31 68 09/01/21 07:07 36.6 C 66 18 147/77 H 97 all noted and reviewed including below (1) Stroke CVA mechanism: unspecified Qualified Code(s): I63.9 - Cerebral infarction, unspecified (2) Follicular lymphoma grade I Lymphoma site: unspecified region Qualified Code(s): C82.00 - Follicular lymphoma grade I, unspecified site
[2021-09-01] MEDS: ACETAMINOPHEN 325 MG TAB PO PRN (18:40)
[2021-09-01] MEDS: VENLAFAXINE HCL XR 75 MG CAPXR PO SCH (20:19)
[2021-09-01] MEDS: ROSUVASTATIN CALCIUM 20 MG TAB PO SCH (20:19)
[2021-09-01 22:53] VITALS: O2SAT 96
[2021-09-02] MEDS: LEVOTHYROXINE SODIUM 112 MCG TABLET PO SCH (06:31)
[2021-09-02] MEDS: PANTOprazole 40 MG TAB PO SCH (08:28)
[2021-09-02] MEDS: SPIRONOLACTONE 12.5 MG TAB PO SCH (08:28)
[2021-09-02] MEDS: GABAPENTIN 400 MG CAP PO SCH ×2 (08:28→13:23)
[2021-09-02] MEDS: AMIODARONE 200 MG TAB PO SCH (08:28)
[2021-09-02] MEDS: METOPROLOL TARTRATE 25 MG TAB PO SCH (08:29)
[2021-09-02 09:11] LABS: Hematocrit (blood only) 24.9 % (37-47); Hemoglobin 8.2 g/dL (12.0-16.0); Mean Corpuscular Hemoglobin 28.7 pg (25-34); Mean Corpuscular Hgb Conc 32.9 g/dL (32-36); Mean Corpuscular Volume 87.1 fL (80-100); RDW Coefficient of Variation 15.5 % (11.5-14.5); RDW Standard Deviation 49.7 fL (36.4-46.3); Red Blood Count 2.86 M/uL (4.2-5.4); White Blood Count 1.03 K/uL (4.8-10.8)
[2021-09-02 10:10] LABS: Mean Platelet Volume 9.9 fL (7.4-10.4); Platelet Count 50 K/uL (130-400)
[2021-09-02 10:12] LABS: Basophils # (auto) 0.01 K/uL (0-0.2); Immature Granulocytes # (auto) 0.04 K/uL (0.00-0.02); Immature Granulocytes % (auto) 3.9 %; Lymphocytes # (auto) 0.62 K/uL (1.2-3.4); Lymphocytes % (auto) 60.2 %; Monocytes # (auto) 0.14 K/uL (0.11-0.59); Monocytes % (auto) 13.6 %; Neutrophils % (auto) 21.3 %; Ovalocytes 1+
--- NOTE | 2021-09-02 12:22 | Hospitalist Progress Note ---
Date of Service September 02, 2021 Assessment & Plan (1) Stroke: Plan: per Dr. Hoyt' notes with addendum including the succeeding assessments and plans: Negative. 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 Neurology evaluation is pending. Decision regarding LP to be determined by neurology. This facility does not have the ability to give intrathecal chemotherapy as there is no oncology support here. However as per my discussion with the patient today she said she prefers to stay here as per the discussion among the team yesterday including the daughter. Discussed the case with her Oncologist, Dr. Saucedo, who is aware of the situation and agrees with the plan. He understands she will not be present for her scheduled treatment tomorrow. CT head revealed no evidence of stroke. High-grade stenosis at takeoff of left subclavian on CT angiogram. MRI of the brain was negative. Acute CVA continue ruled out Neurology consulted Strokelike symptoms mostly resolved Symptoms most likely secondary to anemia and fever Management per below Continue PT and OT Patient prefers to be discharged to home with home health services -arranged by pillowcase turner (2) Sepsis: Plan: No clear source has been identified. s/p Port removal; replaced, doing well after procedure Remained afebrile Initial blood cultures: Negative Repeat blood cultures: Negative Received IV vancomycin/cefepime times several days ID consulted-recommend to discontinue IV antibiotics at this point Afebrile, asymptomatic x48 hours after antibiotic discontinuation Pancytopenia Neutropenia worsening ANC now 200s Discussed with print binding and finishing worker Dr. Saucedo, likely secondary to underlying lymphoma, recommend to discharge on Augmentin for prophylaxis Continue neutropenic precautions Hemoglobin, platelet stable -Discharged on Augmentin twice daily -Has scheduled follow-up with Dr. Saucedo this coming Saturday, September 04, 2021 -Patient advised to avoid sick contacts, wear mask, frequent handwashing, report to PCP immediately if with fever/chills, weakness, signs of infection Generalized edema Right upper extremity Doppler study: Negative for DVT Dopplers for left upper extremity and lower extremities bilaterally: Negative Improving daily Continue Aldactone 12.5 mg p.o. daily for now Monitor closely (3) Symptomatic anemia: Plan: Transfused 2 units of blood with improvement of symptoms Hgb 8.1 Continue to monitor as an outpatient (4) Atrial fibrillation with rapid ventricular response: Plan: New onset A. fib with rapid ventricular response in setting of high fever, possible CVA, possible sepsis. Pulmonary embolism is a possible cause, however, she would not be able to tolerate a blood thinner with thrombocytopenia and is not working to breathe or reporting chest pain at this time. Has received Cardizem Continue metoprolol, amiodarone and spironolactone for now Amiodarone reduced to 200 mg twice daily for QT of 503 Follow-up with resaw carriage operator in 2 weeks (5) Neutropenic fever: Plan: Management per #2 (6) Follicular lymphoma grade I: Plan: Patient to follow-up with hematology/oncology this 09/04/2021 (7) Pancytopenia: Plan: Patient reports being transfusion dependent for the last 2 months. 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 Hb appropriately responded to blood given. Management per above (8) History of DVT (deep vein thrombosis): Plan: Off Coumadin secondary to thrombocytopenia. Encouraged to ambulate frequently (9) CKD (chronic kidney disease), stage III: Plan: Appears to be at her baseline. Continue to monitor closely (10) Hypothyroidism: Plan: TSH within normal limits. Cont home levothyroxine (11) Generalized weakness: Plan: Much improved Discharge to home health services (12) DVT prophylaxis: Plan: SCDs Full Code as discussed with her on admission. Dispo discharge to home with home health services Follow-up with PCP in 1 week Follow-up with print binding and finishing worker/oncologist in 1 week Follow-up with resaw carriage operator in 2 weeks plan of care discussed with patient in detail and at length all questions answered she is understanding, agreeable, comfortable with the plan of care Admission and Anticipated Discharge Date Admission Date: August 25, 2021 Subjective Follow-up for febrile neutropenia, A. fib, etc. Seen resting in bed, comfortable, not in distress, in good spirits, smiling States she feels much better overall No fevers or chills, abdominal pain, change in urination or bowel movement, headache, No chest pain, palpitation, dizziness States she is feeling stronger, ambulating better, appetite is good No other symptoms States she is ready and would like to be discharged today Review of Systems Review of Systems: all noted and negative except for above Physical Exam Physical Exam: General- oriented x 3, not in distress, speaks in sentences with no effort or accessory muscle use Eyes- anicteric Neck- no JVD Lungs- clear BS bilaterally, no rales/wheezes Heart- normal rate, regular rhythm; no murmurs Abdomen- normal bowel sounds, nondistended, soft, nontender Extremities-mild generalized edema much improved no erythema,/warmth/tenderness, no calf tenderness Neuro- alert, oriented x 3; no gross focal neurologic deficits Skin- warm & dry Results & Data Results & Data ([facility]) Vital Signs (Past 12 Hours) Vital Signs Temp Pulse Resp BP BP Pulse Ox 09/02/21 08:30 36.6 C 63 16 127/77 96 09/02/21 04:00 36.5 C 63 18 135/74 96 all noted and reviewed including below (1) Stroke CVA mechanism: unspecified Qualified Code(s): I63.9 - Cerebral infarction, unspecified (2) Follicular lymphoma grade I Lymphoma site: unspecified region Qualified Code(s): C82.00 - Follicular lymphoma grade I, unspecified site
[2021-09-02 12:41] LABS: Neutrophils # (auto) 0.22 K/uL (1.4-6.5)
[2021-09-02 12:50] VITALS: BP 154/79; TEMP 98.2
--- NOTE | 2021-09-02 12:52 | Discharge Summary ---
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 She presents with concerns for acute weakness, inability to walk and strokelike symptoms including right facial droop and delayed response to questioning. The patient has a difficult time giving the history but is oriented and answers appropriately. She states that she woke up in her chair this morning with back pain and decided to get into her bed. When she got into her bed she was too weak to get out of her bed and rolled around for a couple of hours per her report. When she finally rolled out of bed she tried walking to the bathroom and subsequently collapsed onto the floor. She reports left hip pain and left knee pain currently. A left knee x- ray revealed soft tissue swelling without acute fracture with osteoarthritis. A bilateral 2 view pelvic x-ray revealed no acute fracture or dislocation. She was able to scoot along the floor to her phone and text her brother who lives 2 doors down. He came over and they called other family members who called EMS. Per ER notes, EMS reports development of right-sided facial droop first noticed around 2 PM. [id number] arrived to patient's home at noon and states she did not seem right at that time. On arrival to the ER she was found to be in atrial fibrillation with rapid ventricular response with a heart rate in the 180s. She was febrile with a rectal temperature of 40.8 C. She reports a recent history of intermittent fevers related to her ongoing cancer. She also reports ongoing night sweats and weight loss. She denies any clear infectious symptoms including no respiratory symptoms or urinary symptoms at this time. She denies any changes in her stools, abdominal pain, chest pain except where her port insertion went in 2 days ago. This is improving. EKG revealed no evidence of ST elevation. The patient denies any palpitations but noticed her heart rate increase in response to the low blood count, and states this is happened before. She was given a bolus of diltiazem and started on a drip with minimal response. She was given 2 separate boluses of metoprolol and then did convert to sinus rhythm with a rate in the 70s. A repeat EKG confirmed this. She remained with stable blood pressure throughout. A head CT was performed revealing no acute intracranial abnormality followed by a CTA of the head and neck which did not reveal evidence of large vessel occlusion. The case was discussed with Dr. Suárez of on-call neurology/stroke [facility]. In light of the ongoing history of thrombocytopenia with a platelet count in the 40s she would not be a TPA candidate. Platelet count in the ER tonight was 29, she is leukopenic and hemoglobin is 7 with a hematocrit of 20. 2 units of blood were ordered and Lasix was given in between these units. COVID-19 testing was negative. In the setting of fever and leukopenia she was given empiric broad-spectrum antibiotics including vancomycin and cefepime. She subsequently is feeling tired but improved. She was scheduled to start chemotherapy treatment on Friday and understands that this will be delayed. Admission Exam (Per Admitting) Constitutional CONSTITUTIONAL: WNWD, vitals as above, generally well-appearing EYES: EOMI bilaterally, PERRL, normal conjunctivae, no scleral icterus, +horizontal nystagmus when looking to the left. ENT: external ear and nose normal, oropharynx clear, Right sided facial droop NECK: trachea midline RESPIRATORY: fine crackles on the right lung base, clear on the left, no rales or wheezes, normal respiratory effort CARDIOVASCULAR: regular rate and rhythm, S1 and 2 heard without murmurs, gallops or rubs, no JVD, no peripheral edema CHEST: inspection of chest reveals recent port with fresh IJ site, wound covered with blood-tinged bandage underneath clear dressing. No surrounding erythema. GASTROINTESTINAL: soft, nontender, ND, no guarding MUSCULOSKELETAL: strength 5/5 throughout but generally weak all throughout. No gross focal deficits. Head is NC/AT. SKIN: warm and dry, some TTP of left hip without bruising present. No ecchymosis of the left knee or other evidence of overt trauma. NEUROLOGIC: patellar DTRs could not elicit bilaterally. PERRL, EOMI, +R facial droop, no dysarthria. Touch, pain and proprioception normal. CN 2-12 grossly intact, no sensory deficit, normal cognition, normal speech, slow to respond to questions but can find the right answers with time. no tremor PSYCHIATRIC: alert cooperative and oriented to person, place and time. Discharge Data Consultations 08/25/21 17:20 ED Decision to Admit Stat 08/25/21 18:46 Consult Neurology Routine 08/26/21 14:55 Consult Palliative Care Routine 08/26/21 17:42 Consult General Surgery Routine 08/26/21 17:44 Consult Cardiology Routine 08/29/21 08:52 Consult Neurology Routine 08/30/21 10:44 Consult Infectious Diseases Routine Hospital Course (1) Stroke-like episode: per Dr. Hoyt' notes with addendum including the succeeding assessments and plans: Acute CVA ruled out Neurologist consulted, strokelike symptoms found to be secondary to anemia and fever CT head revealed no evidence of stroke. High-grade stenosis at takeoff of left subclavian on CT angiogram. MRI of the brain was negative Strokelike symptoms resolved Symptoms most likely secondary to anemia and fever Patient prefers to be discharged to home with home health services -arranged by business case analyst (2) Sepsis: Febrile neutropenia No clear source has been identified. Possible prior infection? S/p Port removal; replaced, doing well after procedure Remained afebrile Initial blood cultures: Negative Repeat blood cultures: Negative Received IV vancomycin/cefepime times several days ID consulted-recommend to discontinue IV antibiotics at this point Afebrile, asymptomatic x48 hours after antibiotic discontinuation Pancytopenia Neutropenia worsening ANC now 200s Discussed with [employer] Dr. Saucedo, likely secondary to underlying lymphoma, recommend to discharge on Augmentin for prophylaxis Continue neutropenic precautions -Discharged on Augmentin twice daily -Has scheduled follow-up with Dr. Saucedo this coming Saturday, September 04, 2021 -Patient advised to avoid sick contacts, wear mask, frequent handwashing, report to PCP immediately if with fever/chills, weakness, signs of infection Transfused 2 units of blood with improvement of symptoms Hgb 8.1 Continue to monitor as an outpatient Thrombocytopenia Platelet level 37-50 K No bleeding Monitor as an outpatient Generalized edema Right upper extremity Doppler study: Negative for DVT Doppler ultrasoundfor left upper extremity and lower extremities bilaterally: Negative Improving daily Continue Aldactone 12.5 mg p.o. daily for now Monitor closely (3) Atrial fibrillation with rapid ventricular response: New onset A. fib with rapid ventricular response in setting of high fever, possible CVA, possible sepsis. Pulmonary embolism is a possible cause, however, she would not be able to tolerate a blood thinner with thrombocytopenia and is not working to breathe or reporting chest pain at this time. Has received Cardizem Continue metoprolol, amiodarone and spironolactone for now Amiodarone reduced to 200 mg twice daily for QT of 503 Follow-up with alcohol rubber in 2 weeks Monitor EKG, QT corrected interval while on amiodarone and venlafaxine (4) Follicular lymphoma grade I: Patient to follow-up with hematology/oncology this 09/04/2021 (5) History of DVT (deep vein thrombosis): Off Coumadin secondary to thrombocytopenia. Encouraged to ambulate frequently (6) CKD (chronic kidney disease), stage III: Appears to be at her baseline. Continue to monitor closely (7) Hypothyroidism: TSH within normal limits. Cont home levothyroxine (8) Generalized weakness: Much improved Discharge to home health services (9) DVT prophylaxis: SCDs Full Code as discussed with her on admission. Dispo discharge to home with home health services Follow-up with PCP in 1 week Follow-up with [employer]/oncologist in 1 week Follow-up with alcohol rubber in 2 weeks plan of care discussed with patient in detail and at length all questions answered she is understanding, agreeable, comfortable with the plan of care
[2021-09-02 12:53] VITALS: PULSE 67
--- NOTE | 2021-09-03 05:47 | Electrocardiogram Report ---
Test Reason : Blood Pressure : / mmHG Vent. Rate : 064 BPM Atrial Rate : 064 BPM P-R Int : 196 ms QRS Dur : 132 ms QT Int : 486 ms P-R-T Axes : 035 -36 -02 degrees QTc Int : 501 ms Normal sinus rhythm Left axis deviation Right bundle branch block Abnormal ECG When compared with ECG of 31-AUG-2021 05:53, No significant change was found Confirmed by Joss Pagan [id number]) on 09/03/2021 5:47:16 AM Referred By: REFERRED SELF Confirmed By:Joss Pagan
== END 2021-09-02 16:47 | disposition home health service (06) | DRG 872 ==
LOC: ED 14:45 → EDINP 18:09 → SUATTDRO 18:09 → EDINP 18:45 → 2S 08-26 18:55

== ENCOUNTER 2021-12-30 21:45 | Inpatient (IN) ==
--- NOTE | 2021-12-30 22:15 | Emergency Department Note ---
History of Present Illness General Chief complaint: Illness Stated complaint: has aml, has fever, chills, shakey, Time Seen by Provider: 12/30/21 22:01 Source: patient History of Present Illness Provider complaint: Weakness Onset (ago): hour(s) Location: head Pain Consistency: + constant Quality: + other (Generalized weakness) Relieved By: + none Associated symptoms: + fever/chills, + shortness of breath and + weakness; no chest pain, no cough, no headaches or no nausea/vomiting This is a 76-year-old female who presents with generalized weakness starting this afternoon. She states that she just feels weak all over. She admits that she did not eat anything other than a bagel this morning because she just had no appetite. She did also feel feverish and took her temperature which was 99.7. She did take some Tylenol. She denies any cough or cold symptoms, headache, chest pain, abdominal pain, vomiting or diarrhea. She has had no urinary symptoms. She does state that she is chronically short of breath and this does not feel any different today. 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 She did have a transfusion 6 days ago. She denies any black or bloody stools. Home Medications Medication Instructions Recorded Confirmed Type fluticasone propionate 50 2 spray INTRANASAL QAM 08/03/19 12/30/21 History mcg/actuation nasal spray,suspension (Flonase Allergy Relief) pantoprazole 40 mg tablet,delayed 40 mg PO QAM 08/03/19 12/30/21 History release (Protonix) rosuvastatin 40 mg tablet (Crestor) 40 mg PO HS 08/03/19 12/30/21 History venlafaxine 75 mg capsule,extended 75 mg PO HS 08/03/19 12/30/21 History release 24 hr (Effexor XR) diclofenac sodium 1 % topical gel 4 g TOPICAL QID PRN 10/21/19 12/30/21 History (Voltaren Arthritis Pain) fluticasone furoate 100 1 inh INHALATION QAM PRN 05/02/21 12/30/21 History mcg-vilanterol 25 mcg/dose inhalation powder (Breo Ellipta) oxycodone-acetaminophen 5 mg-325 1 tab PO Q6H PRN #14 tab 08/23/21 12/30/21 Rx mg tablet (Percocet) amiodarone 200 mg tablet 200 mg PO BID 30 Days #60 tab 09/02/21 12/30/21 Rx metoprolol tartrate 25 mg tablet 12.5 mg PO BID 30 Days #30 tab 09/02/21 12/30/21 Rx acyclovir 400 mg tablet 400 mg PO BID 09/17/21 12/30/21 History spironolactone 25 mg tablet 12.5 mg PO DAILY 09/17/21 12/30/21 History (Aldactone) allopurinol 300 mg tablet 300 mg PO DAILY 12/30/21 12/30/21 History cefpodoxime 200 mg tablet 200 mg PO Q12 12/30/21 12/30/21 History isavuconazonium sulfate 186 mg 186 mg PO BID 12/30/21 12/30/21 History capsule (Cresemba) levothyroxine 125 mcg tablet 125 mcg PO DAILYBB 12/30/21 12/30/21 History ondansetron HCl 8 mg tablet 8 mg PO Q8H PRN 12/30/21 12/30/21 History gabapentin 400 mg capsule 400 mg PO TID 12/31/21 12/31/21 History Allergies Allergy/AdvReac Type Severity Reaction Status Date / Time No Known Allergies Allergy Verified 12/30/21 22:33 Past Med/Surg History Medical History AML (acute myeloblastic leukemia) Asthma Well controlled CKD (chronic kidney disease), stage III COPD (chronic obstructive pulmonary disease) Diverticulitis Hx Esophageal reflux Essential tremor Follicular lymphoma History of DVT (deep vein thrombosis) 2007 > in setting prolonged inactivity from hospital admission HLD (hyperlipidemia) HTN (hypertension) Hypothyroidism Palliative care encounter Pancreatitis Hx Post-herpetic trigeminal neuralgia Reason for gabapentin Thoracic aortic aneurysm without rupture Ascending thoracic aorta is ectatic up to 4.4 cm (Previously measured 4.1 cm in 2012. Slowly increasing in size) per 06/2020 CTA, under surveillance by Dr. Cohn Surgical History H/O parotidectomy (11/2003) H/O: hysterectomy History of bone marrow biopsy (10/2011) Jul 2021 History of cataract surgery bilat History of colonoscopy (02/16/19) History of cystoscopy (06/02/12) History of dilatation and curettage History of ERCP (06/21/08) History of esophagogastroduodenoscopy (EGD) (03/06/16) History of excision of lesion (04/02/21) Right Superficial Parotid S/P cholecystectomy S/P insertion of IVC (inferior vena caval) filter (06/26/12) 2012 > [place] Filter Placement Right Groin Dr. Srivastava at [facility] Status post excisional biopsy (07/07/17) Left Inguinal Lymph Node Dr. Anderson at [facility] Status post fine needle aspiration (04/05/21) Left External Iliac Lymph Node under [facility] Dr. Coreas at [facility] Status post fine needle aspiration (02/08/19) Right Parotid Gland Lesion Family History Grandmother (Maternal) , Passed Age 52 due to Colon Cancer No problems noted. Father , Passed Age 72 due to Lung Cancer, occupation related No problems noted. Mother , Passed Age 84 of unknown cancer No problems noted. Brother , Passed Age 70 of unknown cancer No problems noted. Brother No problems noted. Daughter CLL (chronic lymphocytic leukemia) Son No problems noted. Son No problems noted. Son No problems noted. Aunt , Passed Age 70 due to Breast Cancer No problems noted. 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 and A total of 10 systems reviewed and were otherwise negative Physical Exam Vital Signs Vital Signs - 24 hr 12/30/21 21:52 12/30/21 22:44 12/30/21 22:48 Temperature 36.0 C L Temperature Source Temporal Artery Scan Pulse Rate 72 75 Pulse Rate [Apical] Pulse Rhythm Regular Pulse Rhythm [Apical] Pulse Strength [Apical] Respiratory Rate 18 18 18 Respiratory Effort / Characteristics Non-Labored Spontaneous Non-Labored Spontaneous Respiratory Depth Normal Respiratory Pattern Regular Blood Pressure 110/66 Blood Pressure [Right Arm] Blood Pressure Mean 80 Blood Pressure Mean [Right Arm] Blood Pressure Position Sitting Blood Pressure Position [Right Arm] Pulse Oximetry 98 96 96 Oxygen Delivery Method Room Air Room Air Room Air Oxygen Flow Rate 0 Sepsis Recent Fever Within 48 Hours No Sepsis New/Unexplained Change in Mental Status N/A Sepsis Action Taken by Nursing No Action Required 12/30/21 22:49 12/30/21 23:42 Temperature Temperature Source Pulse Rate Pulse Rate [Apical] 65 66 Pulse Rhythm Pulse Rhythm [Apical] Regular Pulse Strength [Apical] Normal Respiratory Rate 18 24 Respiratory Effort / Characteristics Non-Labored Spontaneous Respiratory Depth Normal Respiratory Pattern Regular Blood Pressure Blood Pressure [Right Arm] 120/52 L 126/66 Blood Pressure Mean Blood Pressure Mean [Right Arm] 74 86 Blood Pressure Position Blood Pressure Position [Right Arm] Semi-fowlers Pulse Oximetry 96 97 Oxygen Delivery Method Room Air Room Air Oxygen Flow Rate Sepsis Recent Fever Within 48 Hours Sepsis New/Unexplained Change in Mental Status Sepsis Action Taken by Nursing Constitutional: Vital signs reviewed. Eyes: Pupils are equal round reactive to light. Conjunctiva are noninjected. ENT: Pharynx is clear without erythema or exudate. Mucous membranes are slightly dry. Neck supple without meningeal signs. Respiratory: Clear to auscultation bilaterally. Breath sounds are equal bilaterally. Cardiovascular: Regular rate and rhythm. No rubs or gallops. GI: Soft, nondistended and nontender. Bowel sounds are present. Musculoskeletal: No peripheral edema. No lower extremity tenderness. Integumentary: No cyanosis. or jaundice. Neurological: The patient is awake and alert. No focal deficits. Psychiatric: Normal affect. Not anxious appearing. Course Administered Medications Discontinued Medications Cefepime HCl (Maxipime) 2,000 mg in 20 mls @ 5 mls/min IV NOW STA; Protocol Stop: 12/30/21 23:21 Last Admin: 12/30/21 23:38 Dose: 5 mls/min Documented by: [id number] Medical Decision Making Differential Diagnosis Neutropenia, pancytopenia, sepsis, bacteremia, influenza, COVID-19, pneumonia Medical Records Attestation: I reviewed the patient's medical records. I did perform a limited focused review of portions of the patient's old chart on the electronic medical record. The patient was admitted in August of last year for strokelike symptoms with a negative work-up for stroke including a normal MRI. She also had neutropenic fever with negative cultures. Home Medications Current Medication List: was personally reviewed by me Laboratory Data Attestation: I reviewed the patient's lab results. Result diagrams: 12/30/21 22:33 12/30/21 22:33 Lab Results 12/30/21 12/30/21 12/30/21 Range/Units 22:33 22:33 22:33 WBC 0.27 L* (4.8-10.8) K/uL RBC 2.43 L (4.2-5.4) M/uL Hgb 7.0 L (12.0-16.0) g/dL Hct 21.0 L (37-47) % MCV 86.4 (80-100) fL MCH 28.8 (25-34) pg MCHC 33.3 (32-36) g/dL RDW Std Deviation 46.3 (36.4-46.3) fL RDW Coeff of Rosamaria 14.6 H (11.5-14.5) % Plt Count 17 L* (130-400) K/uL MPV 10.0 (7.4-10.4) fL Immature Gran % (Auto) Cancelled Neut % (Auto) Cancelled Lymph % (Auto) Cancelled Baldwin % (Auto) Cancelled Eos % (Auto) Cancelled Baso % (Auto) Cancelled Neut # (Auto) Cancelled Lymph # (Auto) Cancelled Baldwin # (Auto) Cancelled Eos # (Auto) Cancelled Baso # (Auto) Cancelled Immature Gran # (Auto) Cancelled Neutrophils % (Manual) Cancelled Band Neutrophils % Cancelled Lymphocytes % (Manual) Cancelled Prolymphocyte % Cancelled Reactive Lymphs % (Man) Cancelled Monocytes % (Manual) Cancelled Eosinophils % (Manual) Cancelled Basophils % (Manual) Cancelled Metamyelocytes % (Man) Cancelled Myelocytes % (Man) Cancelled Promyelocytes % (Man) Cancelled Blast Cells % (Manual) Cancelled Plasma Cell % (Manual) Cancelled Other Cells % Cancelled Nucleated RBC % Cancelled Neutrophils # (Manual) Cancelled Band Neutrophils # Cancelled Total Absolute Neuts Cancelled Lymphocytes # (Manual) Cancelled Prolymphocyte # Cancelled Reactive Lymphs # Cancelled Total Abs Lymphocytes Cancelled Monocytes # (Manual) Cancelled Eosinophils # (Manual) Cancelled Basophils # (Manual) Cancelled Metamyelocytes # (Man) Cancelled Myelocytes # (Manual) Cancelled Promyelocytes # (Man) Cancelled Blast Cells # (Man) Cancelled Plasma Cell # (Manual) Cancelled Other Cells # Cancelled Nucleated RBCs # (Man) Cancelled Hypersegmented Neuts Cancelled Hyposegmented Neuts Cancelled Hypogranular Neuts Cancelled Large Granular Lymphs Cancelled # Lrg Granular Lymphs Cancelled Hairy Cells Cancelled Smudge Cells Cancelled Toxic Granulation Cancelled Toxic Vacuolation Cancelled Dohle Bodies Cancelled Marek Rods Cancelled Platelet Estimate SIGNIFIC DECREASED (Normal) Hypogranular Platelets Cancelled Clumped Platelets Cancelled Giant Platelets Cancelled Platelet Satelliting Cancelled RBC Morphology Cancelled Polychromasia Cancelled Hypochromasia Cancelled Poikilocytosis Cancelled Basophilic Stippling Cancelled Anisocytosis Cancelled Microcytosis Cancelled Macrocytosis Cancelled Spherocytes Cancelled Pappenheimer Bodies Cancelled Sickle Cells Cancelled Target Cells Cancelled Tear Drop Cells Cancelled Ovalocytes Cancelled Stomatocytes Cancelled [place] Bodies Cancelled Echinocytes Cancelled Acanthocytes (Spur) Cancelled Rouleaux Cancelled RBC Agglutinates Cancelled Schistocytes Cancelled RBC Morph Comment Cancelled Sezary Cell Cancelled PT 11.5 (9.0-12.0) Seconds INR 1.1 (0.9-1.1) APTT 24.2 (21.0-31.0) Seconds PTT Ratio 0.9 Sodium 133 L (136-145) mmol/L Potassium 3.5 (3.5-5.1) mmol/L Chloride 101 (98-107) mmol/L Carbon Dioxide 24 (21-32) mmol/L Anion Gap 8 (3-11) BUN 19 (6-23) mg/dl Creatinine 0.91 (0.6-1.2) mg/dl Est Cr Clr Drug Dosing 55.7 ml/min Est GFR ( Amer) 70.5 ml/min Est GFR (Non-Af Amer) 60.9 ml/min BUN/Creatinine Ratio 20.9 H (10-20) Glucose 130 H (70-99(Fasting)) mg/dl Lactate (0.4-2.0) mmol/L Calcium 8.9 (8.5-10.1) mg/dl Magnesium 2.0 (1.7-2.4) mg/dl Total Bilirubin 1.1 H (0.2-1.0) mg/dl AST 13 (13-39) U/L ALT 14 (7-52) U/L Alkaline Phosphatase 132 H (34-104) U/L Troponin I 0.04 (0-0.04) ng/ml Total Protein 6.3 (6.0-8.3) gm/dl Albumin 4.1 (3.4-5.0) gm/dl Globulin 2.2 L (2.5-4.0) gm/dl Albumin/Globulin Ratio 1.9 (0.9-2) Procalcitonin (0-0.5) ng/ml SARS-CoV-2 (PCR) (Negative) Influenza Type A (PCR) (Neg) Influenza Type B (PCR) (Neg) RSV (RT-PCR) (Neg) Crossmatch 12/30/21 12/30/21 12/30/21 Range/Units 22:33 22:39 23:44 WBC (4.8-10.8) K/uL RBC (4.2-5.4) M/uL Hgb (12.0-16.0) g/dL Hct (37-47) % MCV (80-100) fL MCH (25-34) pg MCHC (32-36) g/dL RDW Std Deviation (36.4-46.3) fL RDW Coeff of Rosamaria (11.5-14.5) % Plt Count (130-400) K/uL MPV (7.4-10.4) fL Immature Gran % (Auto) Neut % (Auto) Lymph % (Auto) Baldwin % (Auto) Eos % (Auto) Baso % (Auto) Neut # (Auto) Lymph # (Auto) Baldwin # (Auto) Eos # (Auto) Baso # (Auto) Immature Gran # (Auto) Neutrophils % (Manual) Band Neutrophils % Lymphocytes % (Manual) Prolymphocyte % Reactive Lymphs % (Man) Monocytes % (Manual) Eosinophils % (Manual) Basophils % (Manual) Metamyelocytes % (Man) Myelocytes % (Man) Promyelocytes % (Man) Blast Cells % (Manual) Plasma Cell % (Manual) Other Cells % Nucleated RBC % Neutrophils # (Manual) Band Neutrophils # Total Absolute Neuts Lymphocytes # (Manual) Prolymphocyte # Reactive Lymphs # Total Abs Lymphocytes Monocytes # (Manual) Eosinophils # (Manual) Basophils # (Manual) Metamyelocytes # (Man) Myelocytes # (Manual) Promyelocytes # (Man) Blast Cells # (Man) Plasma Cell # (Manual) Other Cells # Nucleated RBCs # (Man) Hypersegmented Neuts Hyposegmented Neuts Hypogranular Neuts Large Granular Lymphs # Lrg Granular Lymphs Hairy Cells Smudge Cells Toxic Granulation Toxic Vacuolation Dohle Bodies Marek Rods Platelet Estimate (Normal) Hypogranular Platelets Clumped Platelets Giant Platelets Platelet Satelliting RBC Morphology Polychromasia Hypochromasia Poikilocytosis Basophilic Stippling Anisocytosis Microcytosis Macrocytosis Spherocytes Pappenheimer Bodies Sickle Cells Target Cells Tear Drop Cells Ovalocytes Stomatocytes [place] Bodies Echinocytes Acanthocytes (Spur) Rouleaux RBC Agglutinates Schistocytes RBC Morph Comment Sezary Cell PT (9.0-12.0) Seconds INR (0.9-1.1) APTT (21.0-31.0) Seconds PTT Ratio Sodium (136-145) mmol/L Potassium (3.5-5.1) mmol/L Chloride (98-107) mmol/L Carbon Dioxide (21-32) mmol/L Anion Gap (3-11) BUN (6-23) mg/dl Creatinine (0.6-1.2) mg/dl Est Cr Clr Drug Dosing ml/min Est GFR ( Amer) ml/min Est GFR (Non-Af Amer) ml/min BUN/Creatinine Ratio (10-20) Glucose (70-99(Fasting)) mg/dl Lactate 1.2 (0.4-2.0) mmol/L Calcium (8.5-10.1) mg/dl Magnesium (1.7-2.4) mg/dl Total Bilirubin (0.2-1.0) mg/dl AST (13-39) U/L ALT (7-52) U/L Alkaline Phosphatase (34-104) U/L Troponin I (0-0.04) ng/ml Total Protein (6.0-8.3) gm/dl Albumin (3.4-5.0) gm/dl Globulin (2.5-4.0) gm/dl Albumin/Globulin Ratio (0.9-2) Procalcitonin 0.08 (0-0.5) ng/ml SARS-CoV-2 (PCR) NEGATIVE (Negative) Influenza Type A (PCR) Negative (Neg) Influenza Type B (PCR) Negative (Neg) RSV (RT-PCR) Negative (Neg) Crossmatch 12/31/21 Range/Units 00:40 WBC (4.8-10.8) K/uL RBC (4.2-5.4) M/uL Hgb (12.0-16.0) g/dL Hct (37-47) % MCV (80-100) fL MCH (25-34) pg MCHC (32-36) g/dL RDW Std Deviation (36.4-46.3) fL RDW Coeff of Rosamaria (11.5-14.5) % Plt Count (130-400) K/uL MPV (7.4-10.4) fL Immature Gran % (Auto) Neut % (Auto) Lymph % (Auto) Baldwin % (Auto) Eos % (Auto) Baso % (Auto) Neut # (Auto) Lymph # (Auto) Baldwin # (Auto) Eos # (Auto) Baso # (Auto) Immature Gran # (Auto) Neutrophils % (Manual) Band Neutrophils % Lymphocytes % (Manual) Prolymphocyte % Reactive Lymphs % (Man) Monocytes % (Manual) Eosinophils % (Manual) Basophils % (Manual) Metamyelocytes % (Man) Myelocytes % (Man) Promyelocytes % (Man) Blast Cells % (Manual) Plasma Cell % (Manual) Other Cells % Nucleated RBC % Neutrophils # (Manual) Band Neutrophils # Total Absolute Neuts Lymphocytes # (Manual) Prolymphocyte # Reactive Lymphs # Total Abs Lymphocytes Monocytes # (Manual) Eosinophils # (Manual) Basophils # (Manual) Metamyelocytes # (Man) Myelocytes # (Manual) Promyelocytes # (Man) Blast Cells # (Man) Plasma Cell # (Manual) Other Cells # Nucleated RBCs # (Man) Hypersegmented Neuts Hyposegmented Neuts Hypogranular Neuts Large Granular Lymphs # Lrg Granular Lymphs Hairy Cells Smudge Cells Toxic Granulation Toxic Vacuolation Dohle Bodies Marek Rods Platelet Estimate (Normal) Hypogranular Platelets Clumped Platelets Giant Platelets Platelet Satelliting RBC Morphology Polychromasia Hypochromasia Poikilocytosis Basophilic Stippling Anisocytosis Microcytosis Macrocytosis Spherocytes Pappenheimer Bodies Sickle Cells Target Cells Tear Drop Cells Ovalocytes Stomatocytes [place] Bodies Echinocytes Acanthocytes (Spur) Rouleaux RBC Agglutinates Schistocytes RBC Morph Comment Sezary Cell PT (9.0-12.0) Seconds INR (0.9-1.1) APTT (21.0-31.0) Seconds PTT Ratio Sodium (136-145) mmol/L Potassium (3.5-5.1) mmol/L Chloride (98-107) mmol/L Carbon Dioxide (21-32) mmol/L Anion Gap (3-11) BUN (6-23) mg/dl Creatinine (0.6-1.2) mg/dl Est Cr Clr Drug Dosing ml/min Est GFR ( Amer) ml/min Est GFR (Non-Af Amer) ml/min BUN/Creatinine Ratio (10-20) Glucose (70-99(Fasting)) mg/dl Lactate (0.4-2.0) mmol/L Calcium (8.5-10.1) mg/dl Magnesium (1.7-2.4) mg/dl Total Bilirubin (0.2-1.0) mg/dl AST (13-39) U/L ALT (7-52) U/L Alkaline Phosphatase (34-104) U/L Troponin I (0-0.04) ng/ml Total Protein (6.0-8.3) gm/dl Albumin (3.4-5.0) gm/dl Globulin (2.5-4.0) gm/dl Albumin/Globulin Ratio (0.9-2) Procalcitonin (0-0.5) ng/ml SARS-CoV-2 (PCR) (Negative) Influenza Type A (PCR) (Neg) Influenza Type B (PCR) (Neg) RSV (RT-PCR) (Neg) Crossmatch See Detail Imaging Data Attestation: I personally reviewed and interpreted this imaging study as follows: My Impression: Chest x-ray per my interpretation shows no acute cardiopulmonary process. ECG Data Attestation: I personally reviewed and interpreted this ECG as follows: Indication: + weakness Rate (beats per minute): 67 Rhythm: + normal sinus ECG Intervals/blocks: + Right Bundle branch block ECG [place]: + Left axis deviation ECG Findings: no PVCs Comparison ECG Date: from (September 02, 2021) Change: no significant change MDM Narrative I did evaluate the patient as noted above. Patient is presenting with malaise and chills with low-grade fevers. She is undergoing chemotherapy for AML. Her port was accessed. I did place an order for continuous cardiac monitoring. The monitor showed sinus rhythm at a rate of 67 bpm. I did order and personally review the patient's 12-lead EKG as described above. She does have a right bundle branch block. I did order and personally reviewed the images of the patient's chest x-ray as described above. She has no evidence of of pneumonia. did order a urine analysis. I did order and review the patient's blood work as noted in the electronic medical record. CBC shows a white count of 0.27. Hemoglobin is 7 and platelet count is 17. Electrolytes demonstrate a sodium 133 but are otherwise unremarkable. Troponin is negative. I did discuss the test r esults with the patient. She will be hospitalized for further care and evaluation. I did treat her with cefepime IV 2 g. I did discuss the case with the hospitalist and disease case manager. Covid, influenza and RSV testing were negative. Impression & Plan Neutropenic fever, Pancytopenia, Hyponatremia Discharge Plan Visit Data Chief Complaint: Illness Stated Complaint: has aml, has fever, chills, shakey, ED Provider: Rudy Sharpe Discharge Problem: Neutropenic fever, Pancytopenia, Hyponatremia Patient Disposition: Being Evaluated by Hospitalist Forms Stand Alone Forms: My [facility] Prescriptions Prescriptions: No Action Breo Ellipta 100-25 mcg/dose blister with device 1 inh inhalation QAM PRN (Reason: Shortness Of Breath Or Wheezing) RF: 0 venlafaxine [Effexor XR] 75 mg capsule,extended release 24hr 75 mg PO HS RF: 0 pantoprazole [Protonix] 40 mg tablet,delayed release (DR/EC) 40 mg PO QAM RF: 0 rosuvastatin [Crestor] 40 mg tablet 40 mg PO HS RF: 0 fluticasone propionate [Flonase Allergy Relief] 50 mcg/actuation [place],Suspension 2 spray INTRANASAL QAM RF: 0 diclofenac sodium [Voltaren Arthritis Pain] 1 % gel 4 g TOPICAL QID PRN (Reason: Pain) RF: 0 spironolactone [Aldactone] 25 mg tablet 12.5 mg PO DAILY RF: 0 acyclovir 400 mg tablet 400 mg PO BID RF: 0 oxycodone-acetaminophen [Percocet] 5-325 mg tablet 1 tab PO Q6H PRN (Reason: pain) Qty: 14 RF: 0 cefpodoxime 200 mg tablet 200 mg PO Q12 RF: 0 levothyroxine 125 mcg tablet 125 mcg PO DAILYBB RF: 0 allopurinol 300 mg tablet 300 mg PO DAILY RF: 0 Cresemba 186 mg capsule 186 mg PO BID RF: 0 ondansetron HCl 8 mg tablet 8 mg PO Q8H PRN (Reason: NAUSEA/VOMITING) RF: 0 gabapentin 400 mg capsule 400 mg PO TID RF: 0 amiodarone 200 mg Tablet 200 mg PO BID 30 Days Qty: 60 RF: 2 metoprolol tartrate 25 mg Tablet 12.5 mg PO BID 30 Days Qty: 30 RF: 2 Referrals Referrals: Flor Rubio DO [Primary Care Provider] -
[2021-12-30 23:07] LABS: INR 1.1 (0.9-1.1); Partial Thromboplastin Ratio 0.9; Partial Thromboplastin Time 24.2 Seconds (21.0-31.0); Prothrombin Time 11.5 Seconds (9.0-12.0)
[2021-12-30 23:09] LABS: Albumin Globulin Ratio 1.9 (0.9-2); Albumin Level 4.1 gm/dl (3.4-5.0); BUN Creatinine Ratio 20.9 (10-20); Bilirubin,Total 1.1 mg/dl (0.2-1.0); Calcium 8.9 mg/dl (8.5-10.1); Creatinine Clr Calc Pharmacy 55.7 ml/min; Est GFR (African American) 70.5 ml/min; Est GFR (Non-African American) 60.9 ml/min; Globulin 2.2 gm/dl (2.5-4.0); Potassium 3.5 mmol/L (3.5-5.1); Total Protein 6.3 gm/dl (6.0-8.3)
[2021-12-30 23:11] LABS: Mean Corpuscular Hemoglobin 28.8 pg (25-34); Mean Corpuscular Hgb Conc 33.3 g/dL (32-36); Mean Corpuscular Volume 86.4 fL (80-100); Platelet Count 17 K/uL (130-400); RDW Coefficient of Variation 14.6 % (11.5-14.5); RDW Standard Deviation 46.3 fL (36.4-46.3); Red Blood Count 2.43 M/uL (4.2-5.4); Troponin I 0.04 ng/ml (0-0.04); White Blood Count 0.27 K/uL (4.8-10.8)
[2021-12-30 23:12] LABS: Platelet Estimate SIGNIFIC DECREASED (Normal)
[2021-12-30] MEDS ORDERED: CEFEPIME 2,000 MG/20 ML VIAL IV STA (23:18)
[2021-12-31] MEDS ORDERED: SODIUM CHLORIDE 0.9% 250 ML IV PRN ×2 (00:21→11:54)
--- NOTE | 2021-12-31 00:25 | History & Physical Report ---
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 (Initiate antibiotic Rx if patient develops fever inpatient.) Appropriate to hold chemotherapy medications for now given progressive pancytopenia DVT prophylaxis. SCDs Re: Thrombocytopenia Full code Text document was generated using [employer] voice recognition software. It may contain grammatical or spelling errors. Kindly contact undersigned for clarification of any documentation item in question. History of Present Illness Chief Complaint: Low-grade fever, shortness of breath on exertion Primary Care Provider: Flor Rubio, DO History obtained from patient, family, and records. Medical history significant for PAF/history DVT status post IVC filter placement not on anticoagulation secondary to thrombocytopenia, history TIA/PVD as per records, COPD as per records, AML ongoing chemotherapy currently on antibiotic/antiviral prophylaxis, recurrent follicular lymphoma status post chemoradiation, parotid cancer status post surgery, hypothyroidism, chronic pancytopenia (baseline hemoglobin 7-8), anxiety disorder. Last confinement August 2021 strokelike symptoms, new onset A. fib. Patient discharged on metoprolol and amiodarone. No anticoagulation secondary to bleeding risk/thrombocytopenia. Yesterday, patient noted generalized weakness at home with low-grade fever. Shortness of breath mostly on exertion. No chest pain, no cough, no abdominal pain, no diarrhea, no dysuria, no headache symptoms. No black/bloody stools. 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 IV cefepime administered at the ER. 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 Allergies Allergy/AdvReac Type Severity Reaction Status Date / Time No Known Allergies Allergy Verified 12/30/21 22:33 Home Medications Medication Instructions Recorded Confirmed Type fluticasone propionate 50 2 spray INTRANASAL QAM 08/03/19 12/30/21 History mcg/actuation nasal spray,suspension (Flonase Allergy Relief) pantoprazole 40 mg tablet,delayed 40 mg PO QAM 08/03/19 12/30/21 History release (Protonix) rosuvastatin 40 mg tablet (Crestor) 40 mg PO HS 08/03/19 12/30/21 History venlafaxine 75 mg capsule,extended 75 mg PO HS 08/03/19 12/30/21 History release 24 hr (Effexor XR) diclofenac sodium 1 % topical gel 4 g TOPICAL QID PRN 10/21/19 12/30/21 History (Voltaren Arthritis Pain) fluticasone furoate 100 1 inh INHALATION QAM PRN 05/02/21 12/30/21 History mcg-vilanterol 25 mcg/dose inhalation powder (Breo Ellipta) oxycodone-acetaminophen 5 mg-325 1 tab PO Q6H PRN #14 tab 08/23/21 12/30/21 Rx mg tablet (Percocet) amiodarone 200 mg tablet 200 mg PO BID 30 Days #60 tab 09/02/21 12/30/21 Rx metoprolol tartrate 25 mg tablet 12.5 mg PO BID 30 Days #30 tab 09/02/2112/18 Rx acyclovir 400 mg tablet 400 mg PO BID 09/17/21 12/30/21 History spironolactone 25 mg tablet 12.5 mg PO DAILY 09/17/21 12/30/21 History (Aldactone) allopurinol 300 mg tablet 300 mg PO DAILY 12/30/21 12/30/21 History cefpodoxime 200 mg tablet 200 mg PO Q12 12/30/21 12/30/21 History isavuconazonium sulfate 186 mg 186 mg PO BID 12/30/21 12/30/21 History capsule (Cresemba) levothyroxine 125 mcg tablet 125 mcg PO DAILYBB 12/30/21 12/30/21 History ondansetron HCl 8 mg tablet 8 mg PO Q8H PRN 12/30/21 12/30/21 History gabapentin 400 mg capsule 400 mg PO TID 12/31/21 12/31/21 History Past Med/Surg History Medical History AML (acute myeloblastic leukemia) Asthma Well controlled CKD (chronic kidney disease), stage III COPD (chronic obstructive pulmonary disease) Diverticulitis Hx Esophageal reflux Essential tremor Follicular lymphoma History of DVT (deep vein thrombosis) 2007 > in setting prolonged inactivity from hospital admission HLD (hyperlipidemia) HTN (hypertension) Hypothyroidism Palliative care encounter Pancreatitis Hx Post-herpetic trigeminal neuralgia Reason for gabapentin Thoracic aortic aneurysm without rupture Ascending thoracic aorta is ectatic up to 4.4 cm (Previously measured 4.1 cm in 2012. Slowly increasing in size) per 06/2020 CTA, under surveillance by Dr. Cohn Surgical History H/O parotidectomy (11/2003) H/O: hysterectomy History of bone marrow biopsy (10/2011) Jul 2021 History of cataract surgery bilat History of colonoscopy (02/16/19) History of cystoscopy (06/02/12) History of dilatation and curettage History of ERCP (06/21/08) History of esophagogastroduodenoscopy (EGD) (03/06/16) History of excision of lesion (04/02/21) Right Superficial Parotid S/P cholecystectomy S/P insertion of IVC (inferior vena caval) filter (06/26/12) 2011 > [place] Filter Placement Right Groin Dr. Srivastava at [facility] Status post excisional biopsy (07/07/17) Left Inguinal Lymph Node Dr. Anderson at [facility] Status post fine needle aspiration (04/05/21) Left External Iliac Lymph Node under USG Dr. Coreas at [facility] Status post fine needle aspiration (02/08/19) Right Parotid Gland Lesion Family History Grandmother (Maternal) , Passed Age 52 due to Colon Cancer No problems noted. Father , Passed Age 72 due to Lung Cancer, occupation related No problems noted. Mother , Passed Age 84 of unknown cancer No problems noted. Brother , Passed Age 70 of unknown cancer No problems noted. Brother No problems noted. Daughter CLL (chronic lymphocytic leukemia) Son No problems noted. Son No problems noted. Son No problems noted. Aunt , Passed Age 70 due to Breast Cancer No problems noted. 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 How many Children do You have: 4 Feels Safe at Home: Yes Childhood Exposure to Second-Hand Smoke: Yes (father smoked in home) caffeine: Yes (cola daily) during the past year weight has: remained stable Dental Care, Regularly: Yes Physical Activity Frequency: Does not Exercise Assistive Devices: None Review of Systems Review of Systems: As per HPI, all 10 systems reviewed, all other ROS negative Physical Exam Physical Exam: GENERAL: Slightly uncomfortable, no respiratory distress SKIN: Pallor , warm HEENT: Pale palpebral conjunctivae, no ptosis, dry buccal mucosa NECK : Supple, no tenderness CHEST : Decreased breath sounds, no tenderness HEART : RRR, no obvious murmurs ABDOMEN: Some distention, nontender EXTREMITIES : No LE swelling/tenderness, no other conspicuous deformities noted NEUROLOGIC : Coherent, no facial asymmetry, no other gross focality Results & Data Results & [facility] ([facility]) Vital Signs (Past 12 Hours) Vital Signs Temp Pulse Pulse Resp BP BP Pulse Ox 12/30/21 23:42 66 24 126/66 97 12/30/21 22:49 65 18 120/52 L 96 12/30/21 22:48 18 96 12/30/21 22:44 75 18 96 12/30/21 21:52 36.0 C L 72 18 110/66 98 Laboratory Results Laboratory Results WBC 0.27 K/uL (4.8-10.8) L* 12/30/21 22:33 RBC 2.43 M/uL (4.2-5.4) L 12/30/21 22:33 Hgb 7.0 g/dL (12.0-16.0) L 12/30/21 22:33 Hct 21.0 % (37-47) L 12/30/21 22:33 MCV 86.4 fL (80-100) 12/30/21 22:33 MCH 28.8 pg (25-34) 12/30/21 22:33 MCHC 33.3 g/dL (32-36) 12/30/21 22:33 RDW Std Deviation 46.3 fL (36.4-46.3) 12/30/21 22: RDW Coeff of Rosamaria 14.6 % (11.5-14.5) H 12/30/21 22:33 Plt Count 17 K/uL (130-400) L* 12/30/21 22:33 MPV 10.0 fL (7.4-10.4) 12/30/21 22:33 Immature Gran % (Auto) Cancelled 12/30/21 22:33 Neut % (Auto) Cancelled 12/30/21 22:33 Lymph % (Auto) Cancelled 12/30/21 22:33 Fleming % (Auto) Cancelled 12/30/21 22:33 Eos % (Auto) Cancelled 12/30/21 22:33 Baso % (Auto) Cancelled 12/30/21 22:33 Neut # (Auto) Cancelled 12/30/21 22:33 Lymph # (Auto) Cancelled 12/30/21 22:33 Fleming # (Auto) Cancelled 12/30/21 22:33 Eos # (Auto) Cancelled 12/30/21 22:33 Baso # (Auto) Cancelled 12/30/21 22:33 Immature Gran # (Auto) Cancelled 12/30/21 22:33 Neutrophils % (Manual) Cancelled 12/30/21 22:33 Band Neutrophils % Cancelled 12/30/21 22:33 Lymphocytes % (Manual) Cancelled 12/30/21 22:33 Prolymphocyte % Cancelled 12/30/21 22:33 Reactive Lymphs % (Man) Cancelled 12/30/21 22:33 Monocytes % (Manual) Cancelled 12/30/21 22:33 Eosinophils % (Manual) Cancelled 12/30/21 22:33 Basophils % (Manual) Cancelled 12/30/21 22:33 Metamyelocytes % (Man) Cancelled 12/30/21 22:33 Myelocytes % (Man) Cancelled 12/30/21 22:33 Promyelocytes % (Man) Cancelled 12/30/21 22:33 Blast Cells % (Manual) Cancelled 12/30/21 22:33 Plasma Cell % (Manual) Cancelled 12/30/21 22:33 Other Cells % Cancelled 12/30/21 22:33 Nucleated RBC % Cancelled 12/30/21 22:33 Neutrophils # (Manual) Cancelled 12/30/21 22:33 Band Neutrophils # Cancelled 12/30/21 22:33 Total Absolute Neuts Cancelled 12/30/21 22:33 Lymphocytes # (Manual) Cancelled 12/30/21 22:33 Prolymphocyte # Cancelled 12/30/21 22:33 Reactive Lymphs # Cancelled 12/30/21 22:33 Total Abs Lymphocytes Cancelled 12/30/21 22:33 Monocytes # (Manual) Cancelled 12/30/21 22:33 Eosinophils # (Manual) Cancelled 12/30/21 22:33 Basophils # (Manual) Cancelled 12/30/21 22:33 Metamyelocytes # (Man) Cancelled 12/30/21 22:33 Myelocytes # (Manual) Cancelled 12/30/21 22:33 Promyelocytes # (Man) Cancelled 12/30/21 22:33 Blast Cells # (Man) Cancelled 12/30/21 22:33 Plasma Cell # (Manual) Cancelled 12/30/21 22:33 Other Cells # Cancelled 12/30/21 22:33 Nucleated RBCs # (Man) Cancelled 12/30/21 22:33 Hypersegmented Neuts Cancelled 12/30/21 22:33 Hyposegmented Neuts Cancelled 12/30/21 22:33 Hypogranular Neuts Cancelled 12/30/21 22:33 Large Granular Lymphs Cancelled 12/30/21 22:33 # Lrg Granular Lymphs Cancelled 12/30/21 22:33 Hairy Cells Cancelled 12/30/21 22:33 Smudge Cells Cancelled 12/30/21 22:33 Toxic Granulation Cancelled 12/30/21 22:33 Toxic Vacuolation Cancelled 12/30/21 22:33 Dohle Bodies Cancelled 12/30/21 22:33 Marek Rods Cancelled 12/30/21 22:33 Platelet Estimate SIGNIFIC DECREASED (Normal) 12/30/21 22:33 Hypogranular Platelets Cancelled 12/30/21 22:33 Clumped Platelets Cancelled 12/30/21 22:33 Giant Platelets Cancelled 12/30/21 22:33 Platelet Satelliting Cancelled 12/30/21 22:33 RBC Morphology Cancelled 12/30/21 22:33 Polychromasia Cancelled 12/30/21 22:33 Hypochromasia Cancelled 12/30/21 22:33 Poikilocytosis Cancelled 12/30/21 22:33 Basophilic Stippling Cancelled 12/30/21 22:33 Anisocytosis Cancelled 12/30/21 22:33 Microcytosis Cancelled 12/30/21 22:33 Macrocytosis Cancelled 12/30/21 22:33 Spherocytes Cancelled 12/30/21 22:33 Pappenheimer Bodies Cancelled 12/30/21 22:33 Sickle Cells Cancelled 12/30/21 22:33 Target Cells Cancelled 12/30/21 22:33 Tear Drop Cells Cancelled 12/30/21 22:33 Ovalocytes Cancelled 12/30/21 22:33 Stomatocytes Cancelled 12/30/21 22:33 [place] Bodies Cancelled 12/30/21 22:33 Echinocytes Cancelled 12/30/21 22:33 Acanthocytes (Spur) Cancelled 12/30/21 22:33 Rouleaux Cancelled 12/30/21 22:33 RBC Agglutinates Cancelled 12/30/21 22:33 Schistocytes Cancelled 12/30/21 22:33 RBC Morph Comment Cancelled 12/30/21 22:33 Sezary Cell Cancelled 12/30/21 22:33 PT 11.5 Seconds (9.0-12.0) 12/30/21 22:33 INR 1.1 (0.9-1.1) 12/30/21 22:33 APTT 24.2 Seconds (21.0-31.0) 12/30/21 22:33 PTT Ratio 0.9 12/30/21 22:33 Sodium 133 mmol/L (136-145) L 12/30/21 22:33 Potassium 3.5 mmol/L (3.5-5.1) 12/30/21 22:33 Chloride 101 mmol/L (98-107) 12/30/21 22:33 Carbon Dioxide 24 mmol/L (21-32) 12/30/21 22:33 Anion Gap 8 (3-11) 12/30/21 22:33 BUN 19 mg/dl (6-23) 12/30/21 22:33 Creatinine 0.91 mg/dl (0.6-1.2) 12/30/21: Est Cr Clr Drug Dosing 55.7 ml/min 12/30/21 22:33 Est GFR ( Amer) 70.5 ml/min 12/30/21 22: Est GFR (Non-Af Amer) 60.9 ml/min 12/30/21: BUN/Creatinine Ratio 20.9 (10-20) H 12/30/21 22:33 Glucose 130 mg/dl (70-99(Fasting)) H 12/30/21 22: Lactate 1.2 mmol/L (0.4-2.0) 12/30/21: Calcium 8.9 mg/dl (8.5-10.1) 12/30/21: Magnesium 2.0 mg/dl (1.7-2.4) 12/30/21: Total Bilirubin 1.1 mg/dl (0.2-1.0) H 12/30/21 22:33 AST 13 U/L (13-39) 12/30/21:33 ALT 14 U/L (7-52) 12/30/21: Alkaline Phosphatase 132 U/L (34-104) H 12/30/21: Troponin I 0.04 ng/ml (0-0.04) 12/30/21:33 Total Protein 6.3 gm/dl (6.0-8.3) 12/30/21: Albumin 4.1 gm/dl (3.4-5.0) 12/30/21: Globulin 2.2 gm/dl (2.5-4.0) L 12/30/21 22:33 Albumin/Globulin Ratio 1.9 (0.9-2) 12/30/21 22:33 Diagnostic Findings Chest x-ray as per my interpretation borderline cardiomegaly, no infiltrate EKG as per my interpretation : Rate 65, NSR, LAD, LAFB, RBBB, diffuse T wave abnormalities
[2021-12-31 00:30] LABS: Influenza A virus by PCR Negative (Neg); Influenza B virus by PCR Negative (Neg); RSV by PCR Negative (Neg); SARS CoV2 RNA(COVID-19) InHosp NEGATIVE (Negative)
[2021-12-31] MEDS ORDERED: GABAPENTIN 300 MG CAP PO SCH (00:30)
[2021-12-31] MEDS ORDERED: GABAPENTIN 400 MG CAP PO STA (01:06)
[2021-12-31] MEDS: METOPROLOL TARTRATE 25 MG TAB PO SCH ×3 (01:19→21:01)
[2021-12-31] MEDS ORDERED: FLUTICASONE/VILANTEROL 100/25MCG 14 PUFFS/INHALER INH PRN (03:04)
[2021-12-31] MEDS ORDERED: oxyCODONE HCL IR 5 MG TAB (IMMEDIATE RELEASE) PO PRN (03:04)
[2021-12-31] MEDS ORDERED: DICLOFENAC SOD 1% GEL 100 GM TUBE EXT PRN (03:04)
[2021-12-31] MEDS ORDERED: PROMETHAZINE HCL 12.5 MG in SODIUM CHLORIDE 0.9% 50 ML IV PRN (03:04)
[2021-12-31] MEDS: LEVOTHYROXINE SODIUM 125 MCG TABLET PO SCH (06:12)
--- NOTE | 2021-12-31 06:47 | Electrocardiogram Report ---
Test Reason : Blood Pressure : / mmHG Vent. Rate : 067 BPM Atrial Rate : 067 BPM P-R Int : 166 ms QRS Dur : 136 ms QT Int : 480 ms P-R-T Axes : 046 -21 024 degrees QTc Int : 507 ms Normal sinus rhythm Right bundle branch block Abnormal ECG When compared with ECG of 02-SEP-2021 12:27, No significant change Confirmed by Joss Pagan [id number]) on 12/31/2021 6:47:19 AM Referred By: REFERRED SELF Confirmed By:Joss Pagan
--- NOTE | 2021-12-31 07:06 | XRay Report ---
XR chest 1V portable CLINICAL HISTORY: SEPSIS COMPARISON STUDY: Chest CT July 03, 2021. Chest radiograph August 25, 2021. FINDINGS: Right internal jugular [id number] remains in place. There is no pneumothorax or pleural effusion. There is no consolidation or evidence for pulmonary edema. Cardiac size is stable. Mediasti nal contours are stable. IMPRESSION: No acute cardiopulmonary findings. ACT 112: Negative or not required by law. Electronically signed by: Stevenson Coreas M.D. 12/31/2021 7:05 AM
[2021-12-31 07:51] LABS: Appearance Urine Clear (Clear); Bacteria Urine Automated Negative (Negative); Bilirubin Urine Negative (Negative); Blood Urine 1+ (Negative); Color Urine Yellow; Epithelial Cell Urine Auto >30 /lpf (0-5); Glucose Urine UA Negative (Negative); Ketones Urine Negative (Negative); Leukocyte Esterase Urine Negative (Negative); Nitrite Urine Negative (Negative); Protein Urine Negative (Negative); Specific Gravity Urine 1.019 (1.000-1.030); Urobilinogen Urine Negative (Negative); pH Urine 5.5 (4.5-7.5)
[2021-12-31 08:00] LABS: Hematocrit (blood only) 20.6 % (37-47); Mean Corpuscular Hemoglobin 28.7 pg (25-34); Mean Corpuscular Volume 84.4 fL (80-100); Mean Platelet Volume 9.7 fL (7.4-10.4); Platelet Count 16 K/uL (130-400); RDW Coefficient of Variation 14.7 % (11.5-14.5); RDW Standard Deviation 46.3 fL (36.4-46.3); Red Blood Count 2.44 M/uL (4.2-5.4); White Blood Count 0.46 K/uL (4.8-10.8)
[2021-12-31 08:09] LABS: BUN Creatinine Ratio 20.2 (10-20); Calcium 7.7 mg/dl (8.5-10.1); Creatinine Clr Calc Pharmacy 58.5 ml/min; Est GFR (African American) 72.5 ml/min; Est GFR (Non-African American) 62.5 ml/min; Potassium 3.7 mmol/L (3.5-5.1)
[2021-12-31] MEDS: FLUTICASONE PROPIONATE NA SPR 16 GM BTL SCH (09:23)
[2021-12-31] MEDS: PANTOprazole 40 MG TAB PO SCH (09:24)
[2021-12-31] MEDS: ACYCLOVIR 400 MG TAB PO SCH ×2 (09:24→21:04)
[2021-12-31] MEDS: GABAPENTIN 400 MG CAP PO SCH ×3 (09:24→21:00)
[2021-12-31] MEDS: allopurinoL 300 MG TAB PO SCH (09:24)
[2021-12-31] MEDS: SPIRONOLACTONE 12.5 MG TAB PO SCH (09:24)
[2021-12-31] MEDS: AMIODARONE 200 MG TAB PO SCH ×2 (09:24→21:03)
[2021-12-31] MEDS: ACETAMINOPHEN 325 MG TAB PO PRN (13:26)
--- NOTE | 2021-12-31 16:46 | Hospitalist Progress Note ---
Date of Service December 31, 2021 Assessment & Plan (1) Symptomatic anemia: Plan: Present on admission with weakness and fatigue with Hgb 7 Hx of Transfusion dependent Type and cross and received 1 unit PRBC last night repeat Hgb this morning 7 Will give another 1 unit PRBC Continue monitor H/H Outpatient follow up with Oncology/Hematology Continue weekly PRBC transfusion Low-grade fever at home No overt sepsis/no obvious source of infection for now Blood cx pending History DVT status post IVC filter placement not on anticoagulation secondary to thrombocytopenia Paroxysmal Afib rate control with amiodarone and metoprolol Currently on NSR not on anticoagulation secondary to thrombocytopenia/anemia Recurrent follicular lymphoma status post chemoradiation parotid cancer status post surgery chronic pancytopenia secondary to AML/chemotherapy Hypothyroidism Will check TSH Continue monitor Levothyroxine DVT prophylaxis. SCDs Re: Thrombocytopenia Full code Admission and Anticipated Discharge Date Admission Date: December 31, 2021 Subjective Pt was seen and examined for follow up of anemia Lying in bed with no acute distress Pt said that she feels much better today She said that she received blood transfusion once a week at the [facility] Her last blood transfusion was 1 week ago Her Hgb this morning was 7 She denies any GI bleed, chest pain, palpitation, dizziness and SOB Review of Systems Review of Systems: All systems reviewed & are unremarkable except as noted in Subjective Physical Exam Physical Exam: General- No acute distress Head- atraumatic Eyes- PERRL, EOMI, ENT- oropharynx clear Neck- supple, no JVD Lungs- clear to auscultation Heart- regular rhythm; no murmur Abdomen- normal bowel sounds, soft, nontender Extremities- no calf tenderness Neuro- alert, oriented x 3; PERRL, EOMI; no facial palsy; no dysarthria Skin- warm & dry Results & Data Results & Data ([facility]) Vital Signs (Past 12 Hours) Vital Signs Temp Pulse Pulse Resp BP BP BP 12/31/21 15:31 64 12/31/21 15:21 36.8 C 68 18 106/68 12/31/21 15:17 36.8 C 72 18 108/62 12/31/21 15:14 36.8 C 72 18 108/62 12/31/21 14:14 36.8 C 68 18 106/63 12/31/21 13:14 36.6 C 63 18 107/68 12/31/21 12:44 37.4 C 63 16 110/62 12/31/21 12:29 36.8 C 64 18 119/58 L 12/31/21 12:12 36.8 C 61 18 102/46 L 12/31/21 10:40 37.0 C 60 15 112/55 L 12/31/21 10:38 36.9 C 58 L 17 112/61 12/31/21 07:10 36.7 C 66 15 108/60 112/60 12/31/21 07:06 84 Pulse Ox 12/31/21 15:31 12/31/21 15:21 99 12/31/21 15:17 100 12/31/21 15:14 100 12/31/21 14:14 95 12/31/21 13:14 100 12/31/21 12:44 100 12/31/21 12:29 95 12/31/21 12:12 12/31/21 10:40 98 12/31/21 10:38 98 12/31/21 07:10 97 12/31/21 07:06
[2021-12-31] MEDS ORDERED: bisacodyL 5 MG TABEC PO ONE (17:00)
[2021-12-31 20:10] LABS: Hematocrit (blood only) 23.6 % (37-47)
[2021-12-31] MEDS ORDERED: VENLAFAXINE HCL XR 75 MG CAPXR PO SCH (21:00)
[2021-12-31] MEDS ORDERED: ROSUVASTATIN CALCIUM 20 MG TAB PO SCH (21:00)
[2021-12-31] MEDS ORDERED: HEPARIN 100 UNIT/ML 5ML FLUSH FLUSH PRN (23:22)
[2022-01-01] MEDS: LEVOTHYROXINE SODIUM 125 MCG TABLET PO SCH (05:59)
[2022-01-01 07:36] VITALS: O2SAT 96
[2022-01-01] MEDS: FLUTICASONE PROPIONATE NA SPR 16 GM BTL SCH (08:16)
[2022-01-01] MEDS: allopurinoL 300 MG TAB PO SCH (08:17)
[2022-01-01] MEDS: GABAPENTIN 400 MG CAP PO SCH ×2 (08:17→13:13)
[2022-01-01] MEDS: ACYCLOVIR 400 MG TAB PO SCH (08:18)
[2022-01-01] MEDS: AMIODARONE 200 MG TAB PO SCH (08:18)
[2022-01-01] MEDS: SPIRONOLACTONE 12.5 MG TAB PO SCH (08:18)
[2022-01-01] MEDS: PANTOprazole 40 MG TAB PO SCH (08:18)
[2022-01-01] MEDS: METOPROLOL TARTRATE 25 MG TAB PO SCH (08:18)
[2022-01-01] MEDS: ACETAMINOPHEN 325 MG TAB PO PRN (08:19)
[2022-01-01 10:06] LABS: Hematocrit (blood only) 23.2 % (37-47); Hemoglobin 7.9 g/dL (12.0-16.0); Mean Corpuscular Hemoglobin 29.2 pg (25-34); Mean Corpuscular Hgb Conc 34.1 g/dL (32-36); Mean Corpuscular Volume 85.6 fL (80-100); Mean Platelet Volume 10.7 fL (7.4-10.4); Platelet Count 17 K/uL (130-400); RDW Coefficient of Variation 14.7 % (11.5-14.5); RDW Standard Deviation 46.3 fL (36.4-46.3); Red Blood Count 2.71 M/uL (4.2-5.4)
[2022-01-01 12:13] VITALS: TEMP 98.1
[2022-01-01 13:38] VITALS: BP 112/55; PULSE 60
--- NOTE | 2022-01-07 23:23 | Discharge Summary ---
Date of Service January 01, 2022 Admission HPI Per Admitting Provider History obtained from patient, family, and records. Medical history significant for PAF/history DVT status post IVC filter placement not on anticoagulation secondary to thrombocytopenia, history TIA/PVD as per records, COPD as per records, AML ongoing chemotherapy currently on antibiotic/antiviral prophylaxis, recurrent follicular lymphoma status post chemoradiation, parotid cancer status post surgery, hypothyroidism, chronic pancytopenia (baseline hemoglobin 7-8), anxiety disorder. Last confinement August 2021 strokelike symptoms, new onset A. fib. Patient discharged on metoprolol and amiodarone. No anticoagulation secondary to bleeding risk/thrombocytopenia. Yesterday, patient noted generalized weakness at home with low-grade fever. Shortness of breath mostly on exertion. No chest pain, no cough, no abdominal pain, no diarrhea, no dysuria, no headache symptoms. No black/bloody stools. [facility] [place] point of care specialist recommended ER evaluation with note of ANC of 0.9 on outpatient blood work last December 27, 2021. IV cefepime administered at the ER. 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 Admission Exam Per Admitting Provider GENERAL: Slightly uncomfortable, no respiratory distress SKIN: Pallor , warm HEENT: Pale palpebral conjunctivae, no ptosis, dry buccal mucosa NECK : Supple, no tenderness CHEST : Decreased breath sounds, no tenderness HEART : RRR, no obvious murmurs ABDOMEN: Some distention, nontender EXTREMITIES : No LE swelling/tenderness, no other conspicuous deformities noted NEUROLOGIC : Coherent, no facial asymmetry, no other gross focality Principal Diagnosis Symptomatic anemia: Low-grade fever at home History DVT Paroxysmal Afib Recurrent follicular lymphoma chronic pancytopenia Hypothyroidism Discharge Exam General- No acute distress Head- atraumatic Eyes- PERRL, EOMI, ENT- oropharynx clear Neck- supple, no JVD Lungs- clear to auscultation Heart- regular rhythm; no murmur Abdomen- normal bowel sounds, soft, nontender Extremities- no calf tenderness Neuro- alert, oriented x 3; PERRL, EOMI; no facial palsy; no dysarthria Skin- warm & dry Discharge Data Allergies Allergy/AdvReac Type Severity Reaction Status Date / Time No Known Allergies Allergy Verified 01/04/22 11:01 Ordered Studies XR chest 1V portable CLINICAL HISTORY: SEPSIS COMPARISON STUDY: Chest CT July 03, 2021. Chest radiograph August 25, 2021. FINDINGS: Right internal jugular [id number] remains in place. There is no pneumothorax or pleural effusion. There is no consolidation or evidence for pulmonary edema. Cardiac size is stable. Mediastinal contours are stable. IMPRESSION: No acute cardiopulmonary findings. ACT 112: Negative or not required by law. Electronically signed by: Stevenson Coreas M.D. 12/31/2021 7:05 AM Dictated:12/31/21703 Transcribed: 12/31/21703 Hospital Course (1) Symptomatic anemia: Present on admission with weakness and fatigue with Hgb 7 Hx of Transfusion dependent during the hospital course repeat Hgb this morning 7.9 Continue monitor H/H Case discussed with Oncology dr. Street Outpatient follow up with Oncology/Hematology Continue weekly PRBC transfusion Pt is schedule on to check her hemoglobin Low-grade fever at home No overt sepsis/no obvious source of infection for now Blood cx pending History DVT status post IVC filter placement not on anticoagulation secondary to thrombocytopenia Paroxysmal Afib rate control with amiodarone and metoprolol Currently on NSR not on anticoagulation secondary to thrombocytopenia/anemia Recurrent follicular lymphoma status post chemoradiation parotid cancer status post surgery chronic pancytopenia secondary to AML/chemotherapy Hypothyroidism Will check TSH Continue monitor Levothyroxine DVT prophylaxis. SCDs Re: Thrombocytopenia Full code Total Time Total Time Spent Total Time Spent (In Minutes): 35 minutes Discharge Plan Discharge Items Patient Disposition: Home - Self-Care Reason For Visit: SYMPTOMATIC ANEMIA Discharge Diagnosis: Symptomatic anemia: Low-grade fever at home History DVT Paroxysmal Afib Recurrent follicular lymphoma chronic pancytopenia Hypothyroidism Activity: Resume your previous activity Non-emergency contact: Primary Care Provider and Oncologist Call non-emergency contact if: you have any medication questions, your symptoms worsen and your temperature is above 101 Follow-up/Referrals: Laboratory Susan Randolph [Other] (Date & Time 01/03/2022 9:30 AM Provider Lab [facility] Department Laboratory [facility] ) Flor Rubio, DO [Primary Care Provider] - (Date & Time 01/07/2022 11:20 AM Provider Flor Rubio DO Department [facility] ) Isabel Carrillo, MSN, REST [facility]OM [facility], [facility] [Outside Practitioners] - (Date & Time 01/07/2022 9:00 AM Provider BELINDA Petersen Department Hematology/Oncology [facility] ) Diet: Heart Healthy Addtl Attending Provider Instructions: Follow up with your primary care provider dr. Rubio on 01/07/2022 @ 11:20 AM at the [facility] Follow up with Oncology/Hematology Dr. Saucedo Check CBC on to monitor your hemoglobin and your platelet Fall precaution Seek medical attention if your symptoms worsening or develop any fever Pending Studies at Discharge: No Stand-Alone Forms: My [facility] [employer], Smoking Cessation Medications and DC Order Prescriptions: Continued Breo Ellipta 100-25 mcg/dose blister with device 1 inh inhalation QAM PRN (Reason: Shortness Of Breath Or Wheezing) RF: 0 venlafaxine [Effexor XR] 75 mg capsule,extended release 24hr 75 mg PO HS RF: 0 pantoprazole [Protonix] 40 mg tablet,delayed release (DR/EC) 40 mg PO QAM RF: 0 fluticasone propionate [Flonase Allergy Relief] 50 mcg/actuation [place],Suspension 2 spray INTRANASAL QAM RF: 0 diclofenac sodium [Voltaren Arthritis Pain] 1 % gel 4 g TOPICAL QID PRN (Reason: Pain) RF: 0 spironolactone [Aldactone] 25 mg tablet 12.5 mg PO DAILY RF: 0 acyclovir 400 mg tablet 400 mg PO BID RF: 0 cefpodoxime 200 mg tablet 200 mg PO Q12 RF: 0 levothyroxine 125 mcg tablet 125 mcg PO DAILYBB RF: 0 allopurinol 300 mg tablet 300 mg PO DAILY RF: 0 Cresemba 186 mg capsule 186 mg PO BID RF: 0 ondansetron HCl 8 mg tablet 8 mg PO Q8H PRN (Reason: NAUSEA/VOMITING) RF: 0 gabapentin 400 mg capsule 400 mg PO TID RF: 0 No Action Venclexta 100 mg tablet 100 mg PO DAILY RF: 0 metoprolol succinate 25 mg tablet extended release 24 hr 25 mg PO DAILY RF: 0 amiodarone 200 mg tablet 200 mg PO DAILY RF: 0 rosuvastatin 20 mg tablet 20 mg PO DAILY RF: 0 Discharge Orders: Discharge Order (Routine); Ordered 01/01/22 Ordered By: Joellen Mccrary Admission Data Admit Date/Time: 12/31/21 00:29 Attending Provider: Joellen Mccrary Admit Provider: Jeferson Ferreira Primary Care Provider: Flor Rubio Other Providers: Walter Saucedo Other Interventions: Discharge Summary Assessment (RN) Last Done: 01/01/22 13:37
== END 2022-01-01 15:39 | disposition home or self-care (01) | DRG 809 ==
LOC: ED 21:45 → 2N 12-31 00:29

== ENCOUNTER 2022-01-05 22:48 | Inpatient (IN) ==
[2022-01-05] MEDS ORDERED: SODIUM CHLORIDE 0.9% 1000ML 1,000 ML IV SCH (23:30)
--- NOTE | 2022-01-05 23:32 | Emergency Department Note ---
Impression & Plan Acute hyponatremia, Pancytopenia, Weakness The patient will be evaluated by the [facility] service ED Provider Note NAME: KELLIE CHRISTOPHER AGE: 76 SEX: F ARRIVES VIA: Ambulance INFORMANT: Patient ED PROVIDER(S): Payal Alcazar DO CHIEF COMPLAINT: Weakness PLAN: Disposition: Evaluation by the [facility] service Condition: Stable MEDICAL DECISION MAKING: This is a 76-year-old female patient with history of AML who presents to the emergency department as she was too weak to get up out of a chair. Patient is noted to be hyponatremic and persistently pancytopenic. She appears to be dehydrated on physical exam. Received IV normal saline solution. She had difficulty passing her urine and was straight cathed for a large amount of urine from her bladder. Patient tells me that she does not believe that she can live on her own anymore. She will need evaluation by case management/social service. Triage Nursing notes reviewed and agree with them. Prior medical records reviewed from her emergency department visit just 6 days ago Vital Signs: reviewed and remarkable for hypertension Differential diagnosis: Dehydration, worsening generalized weakness, pancytopenia, anemia ER treatment provided: IV normal saline bolus Diagnostics interpreted by me: ECG: Normal sinus rhythm at a rate of 79 with a right bundle branch block. There is no ischemia or ectopy. Cardiac Monitoring: Normal sinus rhythm at a rate of 79 Laboratory studies: See below Imaging studies: As per my interpretation Portable chest x-ray: No new pulmonary consolidations or opacities appreciated HPI: 76/F arrives for evaluation of weakness. Patient has history of AML. She has been become increasingly weak and is concerned that she is unable to care for self at home anymore. The patient's son and his family came from [place] to help care for her but left around 7:30 PM this evening to return home he found herself sitting in a chair and unable to get up from the chair. She had called her brother to the house to help her. They called EMS for assistance. The patient currently lives alone and has increasing weakness and believes she may not be able to care for herself anymore. She also complains of some intermittent episodes of shortness of breath. She had also been struggling with hemorrhoids over the past week has resolved constipation but now has loose stools. ROS: See above HPI for pertinent positives & negatives. A total of 10 systems reviewed and were otherwise negative. PAST MEDICAL HISTORY:See Below PAST SURGICAL HISTORY:See Below FAMILY HISTORY:See Below SOCIAL HISTORY:See Below HOME MEDICATIONS:See list ALLERGIES:None VITALS:See Below PHYSICAL EXAMINATION: HEENT: Head - normocephalic and atraumatic. Pupils are equal, round, and reactive to light. Extraocular eye muscles are intact, and sclera are anicteri c. Nose - moist nasal mucosa without discharge. Mouth -extremely dry buccal mucosa. Oropharynx is nonerythematous and there is no tonsillar exudate or edema noted. Neck: Supple; no JVD or cervical lymphadenopathy Heart: Regular rate and rhythm. There is a normal S1 and S2 with no murmurs, clicks, or gallops appreciated. Lungs: Clear to auscultation bilaterally with no wheezes, rales, or rhonchi. Abdomen: Soft, completely nontender, nondistended, with good bowel sounds. There are no palpable pulsatile masses or hepatosplenomegaly. There is no guarding, rigidity, or rebound noted. Extremities: 2+ edema in both lower extremities there are easily palpable peripheral pulses. Skin: Pale, warm and dry with poor turgor and no rashes. ED COURSE: Times/Reassessments: 2315: Patient was evaluated in room B2. A complete history and physical was performed. Previous electronic medical records were reviewed. An order was placed for continuous cardiac monitoring. The patient was in a normal sinus rhythm at a rate of 79. A twelve-lead EKG was obtained as described above. Her port was accessed and labs were drawn as above. The patient was bolused with IV normal saline solution. The patient was unable to pass her urine and she was straight cathed for urine. Chest x-ray was performed as described above. I discussed the case with the [facility] and they will evaluate for further management and involve case management. Payal Alcazar DO Past Med/Surg History Medical History AML (acute myeloblastic leukemia) Asthma Well controlled CKD (chronic kidney disease), stage III COPD (chronic obstructive pulmonary disease) Diverticulitis Hx Esophageal reflux Essential tremor Follicular lymphoma History of DVT (deep vein thrombosis) 2007 > in setting prolonged inactivity from hospital admission HLD (hyperlipidemia) HTN (hypertension) Hypothyroidism Palliative care encounter Pancreatitis Hx Post-herpetic trigeminal neuralgia Reason for gabapentin Thoracic aortic aneurysm without rupture Ascending thoracic aorta is ectatic up to 4.4 cm (Previously measured 4.1 cm in 2012. Slowly increasing in size) per 06/2020 CTA, under surveillance by Dr. Cohn Surgical History H/O parotidectomy (11/2003) H/O: hysterectomy History of bone marrow biopsy (10/2011) Jul 2021 History of cataract surgery bilat History of colonoscopy (02/16/19) History of cystoscopy (06/02/12) History of dilatation and curettage History of ERCP (06/21/08) History of esophagogastroduodenoscopy (EGD) (03/06/16) History of excision of lesion (04/02/21) Right Superficial Parotid S/P cholecystectomy S/P insertion of IVC (inferior vena caval) filter (06/26/12) 2011 > [place] Filter Placement Right Groin Dr. Srivastava at [facility] Status post excisional biopsy (07/07/17) Left Inguinal Lymph Node Dr. Anderson at [facility] Status post fine needle aspiration (04/05/21) Left External Iliac Lymph Node under [facility] Dr. Coreas at [facility] Status post fine needle aspiration (02/08/19) Right Parotid Gland Lesion Family History Grandmother (Maternal) , Passed Age 52 due to Colon Cancer No problems noted. Father , Passed Age 72 due to Lung Cancer, occupation related No problems noted. Mother , Passed Age 84 of unknown cancer No problems noted. Brother , Passed Age 70 of unknown cancer No problems noted. Brother No problems noted. Daughter CLL (chronic lymphocytic leukemia) Son No problems noted. Son No problems noted. Son No problems noted. Aunt , Passed Age 70 due to Breast Cancer No problems noted. 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 How many Children do You have: 4 Feels Safe at Home: Yes Childhood Exposure to Second-Hand Smoke: Yes (father smoked in home) caffeine: Yes (cola daily) during the past year weight has: remained stable Dental Care, Regularly: Yes Physical Activity Frequency: Does not Exercise Assistive Devices: None Allergies Allergies Allergy/AdvReac Type Severity Reaction Status Date / Time No Known Allergies Allergy Verified 01/04/22 11:01 Home Meds Home Medications Medication Instructions Recorded Confirmed fluticasone propionate 50 2 spray INTRANASAL QAM 08/03/19 01/05/22 mcg/actuation nasal spray,suspension (Flonase Allergy Relief) pantoprazole 40 mg tablet,delayed 40 mg PO QAM 08/03/19 01/05/22 release (Protonix) venlafaxine 75 mg capsule,extended 75 mg PO HS 08/03/19 01/05/22 release 24 hr (Effexor XR) diclofenac sodium 1 % topical gel 4 g TOPICAL QID PRN 10/21/19 01/05/22 (Voltaren Arthritis Pain) fluticasone furoate 100 1 inh INHALATION QAM PRN 05/02/21 01/05/22 mcg-vilanterol 25 mcg/dose inhalation powder (Breo Ellipta) acyclovir 400 mg tablet 400 mg PO BID 09/17/21 01/05/22 spironolactone 25 mg tablet 12.5 mg PO DAILY 09/17/21 01/05/22 (Aldactone) allopurinol 300 mg tablet 300 mg PO DAILY 12/30/21 01/05/22 cefpodoxime 200 mg tablet 200 mg PO Q12 12/30/21 01/05/22 isavuconazonium sulfate 186 mg 186 mg PO BID 12/30/21 01/05/22 capsule (Cresemba) levothyroxine 125 mcg tablet 125 mcg PO DAILYBB 12/30/21 01/05/22 ondansetron HCl 8 mg tablet 8 mg PO Q8H PRN 12/30/21 01/05/22 gabapentin 400 mg capsule 400 mg PO TID 12/31/21 01/05/22 amiodarone 200 mg tablet 200 mg PO DAILY 01/05/22 01/05/22 metoprolol succinate 25 mg 25 mg PO DAILY 01/05/22 01/05/22 tablet,extended release 24 hr rosuvastatin 20 mg tablet 20 mg PO DAILY 01/05/22 01/05/22 venetoclax 100 mg tablet 100 mg PO DAILY 01/05/22 01/05/22 (Venclexta) Results & Data (ED) Vital Signs Vital Signs - 24 hr 01/05/22 22:53 01/05/22 23:10 01/06/22 00:16 Temperature 37.5 C Temperature Source Oral Pulse Rate 80 75 Pulse Rate [Right Finger] 79 Pulse Rhythm [Right Finger] Regular Pulse Strength [Right Finger] Normal Respiratory Rate 22 24 19 Respiratory Effort / Characteristics Non-Labored Spontaneous Respiratory Depth Normal Respiratory Pattern Regular Blood Pressure 174/70 H Blood Pressure [Right Arm] 174/70 H Blood Pressure Mean 104 Blood Pressure Mean [Right Arm] 104 Blood Pressure Position Semi-fowlers Blood Pressure Position [Right Arm] Lying Pulse Oximetry 94 99 94 Oxygen Delivery Method Room Air Room Air Room Air Sepsis Recent Fever Within 48 Hours No Sepsis New/Unexplained Change in Mental Status No Sepsis Action Taken by Nursing No Action Required 01/06/22 01:00 Temperature Temperature Source Pulse Rate Pulse Rate [Right Finger] 74 Pulse Rhythm [Right Finger] Regular Pulse Strength [Right Finger] Normal Respiratory Rate 19 Respiratory Effort / Characteristics Non-Labored Spontaneous Respiratory Depth Normal Respiratory Pattern Blood Pressure Blood Pressure [Right Arm] 174/70 H Blood Pressure Mean Blood Pressure Mean [Right Arm] 104 Blood Pressure Position Blood Pressure Position [Right Arm] Pulse Oximetry 94 Oxygen Delivery Method Room Air Sepsis Recent Fever Within 48 Hours Sepsis New/Unexplained Change in Mental Status Sepsis Action Taken by Nursing Laboratory Data Result diagrams: 01/05/22 23:50 01/05/22 23:50 Lab Results 01/05/22 01/05/22 01/05/22 Range/Units 23:50 23:50 23:50 WBC 0.38 L* (4.8-10.8) K/uL RBC 2.67 L (4.2-5.4) M/uL Hgb 7.8 L (12.0-16.0) g/dL Hct 22.5 L (37-47) % MCV 84.3 (80-100) fL MCH 29.2 (25-34) pg MCHC 34.7 (32-36) g/dL RDW Std Deviation 43.7 (36.4-46.3) fL RDW Coeff of Rosamaria 14.0 (11.5-14.5) % Plt Count 20 L* (130-400) K/uL MPV 10.5 H (7.4-10.4) fL Immature Gran % (Auto) Cancelled Neut % (Auto) Cancelled Lymph % (Auto) Cancelled [place] % (Auto) Cancelled Eos % (Auto) Cancelled Baso % (Auto) Cancelled Neut # (Auto) Cancelled Lymph # (Auto) Cancelled [place] # (Auto) Cancelled Eos # (Auto) Cancelled Baso # (Auto) Cancelled Immature Gran # (Auto) Cancelled Neutrophils % (Manual) Cancelled Band Neutrophils % Cancelled Lymphocytes % (Manual) Cancelled Prolymphocyte % Cancelled Reactive Lymphs % (Man) Cancelled Monocytes % (Manual) Cancelled Eosinophils % (Manual) Cancelled Basophils % (Manual) Cancelled Metamyelocytes % (Man) Cancelled Myelocytes % (Man) Cancelled Promyelocytes % (Man) Cancelled Blast Cells % (Manual) Cancelled Plasma Cell % (Manual) Cancelled Other Cells % Cancelled Nucleated RBC % Cancelled Neutrophils # (Manual) Cancelled Band Neutrophils # Cancelled Total Absolute Neuts Cancelled Lymphocytes # (Manual) Cancelled Prolymphocyte # Cancelled Reactive Lymphs # Cancelled Total Abs Lymphocytes Cancelled Monocytes # (Manual) Cancelled Eosinophils # (Manual) Cancelled Basophils # (Manual) Cancelled Metamyelocytes # (Man) Cancelled Myelocytes # (Manual) Cancelled Promyelocytes # (Man) Cancelled Blast Cells # (Man) Cancelled Plasma Cell # (Manual) Cancelled Other Cells # Cancelled Nucleated RBCs # (Man) Cancelled Hypersegmented Neuts Cancelled Hyposegmented Neuts Cancelled Hypogranular Neuts Cancelled Large Granular Lymphs Cancelled # Lrg Granular Lymphs Cancelled Hairy Cells Cancelled Smudge Cells Cancelled Toxic Granulation Cancelled Toxic Vacuolation Cancelled Dohle Bodies Cancelled Marek Rods Cancelled Hypogranular Platelets Cancelled Clumped Platelets Cancelled Giant Platelets Cancelled Platelet Satelliting Cancelled RBC Morphology Cancelled Polychromasia Cancelled Hypochromasia Cancelled Poikilocytosis Cancelled Basophilic Stippling Cancelled Anisocytosis Cancelled Microcytosis Cancelled Macrocytosis Cancelled Spherocytes Cancelled Pappenheimer Bodies Cancelled Sickle Cells Cancelled Target Cells Cancelled Tear Drop Cells Cancelled Ovalocytes Cancelled Stomatocytes Cancelled [place] Bodies Cancelled Echinocytes Cancelled Acanthocytes (Spur) Cancelled Rouleaux Cancelled RBC Agglutinates Cancelled Schistocytes Cancelled RBC Morph Comment Cancelled Sezary Cell Cancelled Sodium 129 L (136-145) mmol/L Potassium 3.2 L (3.5-5.1) mmol/L Chloride 97 L (98-107) mmol/L Carbon Dioxide 24 (21-32) mmol/L Anion Gap 8 (3-11) BUN 13 (6-23) mg/dl Creatinine 0.85 (0.6-1.2) mg/dl Est Cr Clr Drug Dosing 63.1 ml/min Est GFR ( Amer) 76.6 ml/min Est GFR (Non-Af Amer) 66.1 ml/min BUN/Creatinine Ratio 15.3 (10-20) Glucose 125 H (70-99(Fasting)) mg/dl Calcium 8.0 L (8.5-10.1) mg/dl Total Bilirubin 0.6 (0.2-1.0) mg/dl AST 12 L (13-39) U/L ALT 15 (7-52) U/L Alkaline Phosphatase 92 (34-104) U/L Total Protein 5.8 L (6.0-8.3) gm/dl Albumin 3.4 (3.4-5.0) gm/dl Globulin 2.4 L (2.5-4.0) gm/dl Albumin/Globulin Ratio 1.4 (0.9-2) TSH 4.432 (0.300-4.500) uIu/ml Urine Color Urine Appearance (Clear) Urine pH (4.5-7.5) Ur Specific [place] (1.000-1.030) Urine Protein (Negative) Urine Glucose (UA) (Negative) Urine Ketones (Negative) Urine Blood (Negative) Urine Nitrite (Negative) Urine Bilirubin (Negative) Urine Urobilinogen (Negative) Ur Leukocyte Esterase (Negative) Urine WBC (Auto) (0-5) /hpf Urine RBC (Auto) (0-4) /hpf U Hyaline Cast (Auto) (0-5) /lpf U Epithel Cells (Auto) (0-5) /lpf Urine Bacteria (Auto) (Negative) SARS-CoV-2, RNA, NAAT (NEGATIVE) 01/06/22 01/06/22 Range/Units 01:10 01:25 WBC (4.8-10.8) K/uL RBC (4.2-5.4) M/uL Hgb (12.0-16.0) g/dL Hct (37-47) % MCV (80-100) fL MCH (25-34) pg MCHC (32-36) g/dL RDW Std Deviation (36.4-46.3) fL RDW Coeff of Rosamaria (11.5-14.5) % Plt Count (130-400) K/uL MPV (7.4-10.4) fL Immature Gran % (Auto) Neut % (Auto) Lymph % (Auto) [place] % (Auto) Eos % (Auto) Baso % (Auto) Neut # (Auto) Lymph # (Auto) [place] # (Auto) Eos # (Auto) Baso # (Auto) Immature Gran # (Auto) Neutrophils % (Manual) Band Neutrophils % Lymphocytes % (Manual) Prolymphocyte % Reactive Lymphs % (Man) Monocytes % (Manual) Eosinophils % (Manual) Basophils % (Manual) Metamyelocytes % (Man) Myelocytes % (Man) Promyelocytes % (Man) Blast Cells % (Manual) Plasma Cell % (Manual) Other Cells % Nucleated RBC % Neutrophils # (Manual) Band Neutrophils # Total Absolute Neuts Lymphocytes # (Manual) Prolymphocyte # Reactive Lymphs # Total Abs Lymphocytes Monocytes # (Manual) Eosinophils # (Manual) Basophils # (Manual) Metamyelocytes # (Man) Myelocytes # (Manual) Promyelocytes # (Man) Blast Cells # (Man) Plasma Cell # (Manual) Other Cells # Nucleated RBCs # (Man) Hypersegmented Neuts Hyposegmented Neuts Hypogranular Neuts Large Granular Lymphs # Lrg Granular Lymphs Hairy Cells Smudge Cells Toxic Granulation Toxic Vacuolation Dohle Bodies Marek Rods Hypogranular Platelets Clumped Platelets Giant Platelets Platelet Satelliting RBC Morphology Polychromasia Hypochromasia Poikilocytosis Basophilic Stippling Anisocytosis Microcytosis Macrocytosis Spherocytes Pappenheimer Bodies Sickle Cells Target Cells Tear Drop Cells Ovalocytes Stomatocytes [place] Bodies Echinocytes Acanthocytes (Spur) Rouleaux RBC Agglutinates Schistocytes RBC Morph Comment Sezary Cell Sodium (136-145) mmol/L Potassium (3.5-5.1) mmol/L Chloride (98-107) mmol/L Carbon Dioxide (21-32) mmol/L Anion Gap (3-11) BUN (6-23) mg/dl Creatinine (0.6-1.2) mg/dl Est Cr Clr Drug Dosing ml/min Est GFR ( Amer) ml/min Est GFR (Non-Af Amer) ml/min BUN/Creatinine Ratio (10-20) Glucose (70-99(Fasting)) mg/dl Calcium (8.5-10.1) mg/dl Total Bilirubin (0.2-1.0) mg/dl AST (13-39) U/L ALT (7-52) U/L Alkaline Phosphatase (34-104) U/L Total Protein (6.0-8.3) gm/dl Albumin (3.4-5.0) gm/dl Globulin (2.5-4.0) gm/dl Albumin/Globulin Ratio (0.9-2) TSH (0.300-4.500) uIu/ml Urine Color Yellow Urine Appearance Clear (Clear) Urine pH 5.5 (4.5-7.5) Ur Specific [place] 1.018 (1.000-1.030) Urine Protein Trace H (Negative) Urine Glucose (UA) Negative (Negative) Urine Ketones Trace H (Negative) Urine Blood 3+ H (Negative) Urine Nitrite Negative (Negative) Urine Bilirubin Negative (Negative) Urine Urobilinogen Negative (Negative) Ur Leukocyte Esterase Negative (Negative) Urine WBC (Auto) 1-5 (0-5) /hpf Urine RBC (Auto) 5-10 H (0-4) /hpf U Hyaline Cast (Auto) 1-5 (0-5) /lpf U Epithel Cells (Auto) 10-20 H (0-5) /lpf Urine Bacteria (Auto) Negative (Negative) SARS-CoV-2, RNA, NAAT NEGATIVE (NEGATIVE) Administered Medications Discontinued Medications Sodium Chloride (Nss 1000ml) 1,000 mls @ 999 mls/hr IV .Q1H1M AJAY Stop: 01/06/22 00:30 Last Infusion: 01/06/22 01:20 Dose: 0 mls/hr Documented by: [id number] Admin: 01/06/22 00:02 Dose: 999 mls/hr Documented by: [id number] Sodium Chloride (Nss) 500 mls @ 125 mls/hr IV .Q4H AJAY Stop: 02/05/22 01:29 Last Infusion: 01/06/22 04:48 Dose: 0 mls/hr Documented by: [id number] Admin: 01/06/22 01:40 Dose: 125 mls/hr Documented by: [id number] Discharge Plan Visit Data Chief Complaint: Weakness Stated Complaint: SHAKY/WEAK/"WINDED"/ [place]. Discharge Problem: Acute hyponatremia, Pancytopenia, Weakness Patient Disposition: Admitted As Inpatient Discharge Instructions Interventions: ED Discharge Assessment Last Done: 01/06/22 04:42
[2022-01-06 00:20] LABS: Albumin Globulin Ratio 1.4 (0.9-2); Albumin Level 3.4 gm/dl (3.4-5.0); BUN Creatinine Ratio 15.3 (10-20); Bilirubin,Total 0.6 mg/dl (0.2-1.0); Creatinine Clr Calc Pharmacy 63.1 ml/min; Est GFR (African American) 76.6 ml/min; Est GFR (Non-African American) 66.1 ml/min; Globulin 2.4 gm/dl (2.5-4.0); Potassium 3.2 mmol/L (3.5-5.1); Total Protein 5.8 gm/dl (6.0-8.3)
[2022-01-06 00:29] LABS: Hematocrit (blood only) 22.5 % (37-47); Hemoglobin 7.8 g/dL (12.0-16.0); Mean Corpuscular Hemoglobin 29.2 pg (25-34); Mean Corpuscular Hgb Conc 34.7 g/dL (32-36); Mean Corpuscular Volume 84.3 fL (80-100); Mean Platelet Volume 10.5 fL (7.4-10.4); Platelet Count 20 K/uL (130-400); RDW Standard Deviation 43.7 fL (36.4-46.3); Red Blood Count 2.67 M/uL (4.2-5.4); White Blood Count 0.38 K/uL (4.8-10.8)
[2022-01-06 01:23] LABS: Appearance Urine Clear (Clear); Bacteria Urine Automated Negative (Negative); Bilirubin Urine Negative (Negative); Blood Urine 3+ (Negative); Color Urine Yellow; Glucose Urine UA Negative (Negative); Ketones Urine Trace (Negative); Leukocyte Esterase Urine Negative (Negative); Nitrite Urine Negative (Negative); Protein Urine Trace (Negative); Specific Gravity Urine 1.018 (1.000-1.030); Urobilinogen Urine Negative (Negative); pH Urine 5.5 (4.5-7.5)
[2022-01-06] MEDS ORDERED: SODIUM CHLORIDE 0.9% 500 ML IV SCH (01:30)
[2022-01-06] MEDS ORDERED: ONDANSETRON INJ 2 MG/ML 2 ML VIAL IV PRN (05:08)
[2022-01-06] MEDS ORDERED: DICLOFENAC SOD 1% GEL 100 GM TUBE EXT PRN (05:08)
[2022-01-06] MEDS ORDERED: POLYETHYLENE (MIRALAX) 17 GM PACK PO PRN (05:08)
[2022-01-06] MEDS ORDERED: FLUTICASONE/VILANTEROL 100/25MCG 14 PUFFS/INHALER INH PRN (05:08)
[2022-01-06] MEDS: LEVOTHYROXINE SODIUM 125 MCG TABLET PO SCH (06:34)
--- NOTE | 2022-01-06 07:17 | XRay Report ---
XR chest 1V portable CLINICAL HISTORY: weakness COMPARISON STUDY: Chest CT July 03, 2021. Chest radiograph December 30, 2021. FINDINGS: Right internal jugular [id number] is in place. No pneumothorax or pleural effusion is pr esent. Cardiomegaly is noted. There is pulmonary vascular congestion without overt pulmonary edema. N o consolidation is identified. IMPRESSION: Pulmonary vascular congestion without overt pulmonary edema. ACT 112: Negative or not required by law. Electronically signed by: Stevenson Coreas M.D. 01/06/2022 7:15 AM
[2022-01-06 08:20] LABS: BUN Creatinine Ratio 12.8 (10-20); Calcium 7.7 mg/dl (8.5-10.1); Creatinine Clr Calc Pharmacy 67.4 ml/min; Est GFR (Non-African American) 73.3 ml/min; Magnesium 1.9 mg/dl (1.7-2.4)
[2022-01-06 08:21] LABS: Hematocrit (blood only) 20.8 % (37-47); Hemoglobin 7.2 g/dL (12.0-16.0); Mean Corpuscular Hemoglobin 29.4 pg (25-34); Mean Corpuscular Hgb Conc 34.6 g/dL (32-36); Mean Corpuscular Volume 84.9 fL (80-100); RDW Coefficient of Variation 14.1 % (11.5-14.5); RDW Standard Deviation 43.4 fL (36.4-46.3); Red Blood Count 2.45 M/uL (4.2-5.4); White Blood Count 0.46 K/uL (4.8-10.8)
[2022-01-06 08:38] LABS: Mean Platelet Volume 9.2 fL (7.4-10.4)
[2022-01-06 08:39] LABS: Platelet Count 20 K/uL (130-400)
[2022-01-06] MEDS ORDERED: POTASSIUM CHLORIDE CRTAB 20 MEQ TABCR PO STA ×2 (08:39)
[2022-01-06] MEDS: FLUTICASONE PROPIONATE NA SPR 16 GM BTL SCH (08:46)
[2022-01-06] MEDS: AMIODARONE 200 MG TAB PO SCH (08:47)
[2022-01-06] MEDS: GABAPENTIN 400 MG CAP PO SCH ×3 (08:47→20:45)
[2022-01-06] MEDS: METOPROLOL SUCC 25MG EXT REL TAB PO SCH (08:47)
[2022-01-06] MEDS: allopurinoL 300 MG TAB PO SCH (08:48)
[2022-01-06] MEDS: ACYCLOVIR 400 MG TAB PO SCH ×2 (08:48→20:45)
[2022-01-06] MEDS: ROSUVASTATIN CALCIUM 20 MG TAB PO SCH (08:48)
[2022-01-06] MEDS: PANTOprazole 40 MG TAB PO SCH (08:48)
[2022-01-06] MEDS: SPIRONOLACTONE 12.5 MG TAB PO SCH (08:48)
[2022-01-06] MEDS: ACETAMINOPHEN 325 MG TAB PO PRN (08:49)
--- NOTE | 2022-01-06 10:09 | History and Physical Report ---
DATE OF ADMISSION: 01/06/2022. CHIEF COMPLAINT: Weakness. HISTORY OF PRESENT ILLNESS: This is a 76-year-old female with past medical history significant for hypothyroidism, history of hypercholesterolemia, a fib, COPD, chronic rhinitis, thoracic aortic aneurysm, hypertension, history of stenosis of left subclavian artery, gastroparesis, GERD, chronic kidney disease stage III, history of melanoma in situ, history of T12 compression fracture, osteoporosis, history of cerebral infarction, history of postherpetic trigeminal neuralgia, iron deficiency anemia due to chronic blood loss, pancytopenia, history of DVT, status post IVC filter, depression, anxiety, TIA, history of recurrent follicular lymphoma, history of mucoepidermoid carcinoma of the low- grade, status post surgical excision of the lesion on the right superficial parotid region, who lives at her home alone, brother lives a couple of doors away, presents with weakness. The patient states she was able to go to bathroom on her own. Son and family was at home from [place] for a couple of days and they left in the evening. After that the patient was having difficulty getting up from the bed to the chair, she called her brother and was brought in here. Hemodynamically stable, has pancytopenia. Sodium of 129, potassium of 3.2, resting comfortably, hemodynamically stable. Denies any chest pain or headache. No blurred visions, no runny nose, no sore throat, no cough, no fevers. Appetite is down, not eating much. No difficulty swallowing. No shortness of breath, no nausea, no vomiting, no abdominal pain. She says she has some rectal pain from her hemorrhoids and sometimes she gets blood in the stools. Normal bladder movements. ALLERGIES: No known drug allergies. PAST MEDICAL HISTORY: As mentioned above. PAST SURGICAL HISTORY: Bone marrow biopsy, colonoscopies, cystoscopy, EGDs, excisional biopsy of left inguinal lymph node, parotid gland removed, cataracts, total abdominal hysterectomy with removal of tubes, cholecystectomy. MEDICATIONS: The patient is on acyclovir 400 mg p.o. b.i.d., allopurinol 300 mg p.o. daily, amiodarone 200 mg p.o. daily, cefpodoxime 200 mg p.o. b.i.d., Cresemba 186 mg p.o. b.i.d., diclofenac sodium 4 g topical q.i.d. p.r.n., fluticasone and vilanterol one inhalation a.m. p.r.n., Flonase 2 sprays intranasal p.r.n., gabapentin 400 mg p.o. t.i.d., levothyroxine 125 mcg p.o. daily, metoprolol succinate 25 mg p.o. daily, Zofran 8 mg p.o. q. 8 hours p.r.n., Protonix 40 mg p.o. a.m., atorvastatin 20 mg p.o. daily, spironolactone 12.5 mg p.o. daily, Effexor 75 mg p.o. at bedtime. FAMILY HISTORY: Significant for maternal aunt has breast cancer; daughter has leukemia; father has lung cancer; mother has pancreatic cancer; brother has diabetes, hypertension; son has migraines; mother has pacemaker. SOCIAL HISTORY: , lives alone currently. No smoking, no alcohol, no drug use. REVIEW OF SYSTEMS: As per HPI. Rest of review of systems is negative. PHYSICAL EXAMINATION: GENERAL: The patient is of moderate build, not in acute distress. VITAL SIGNS: Temperature 37.5, pulse 77, respiratory rate 18, blood pressure 151/74, oxygen 99% on room air. HEENT: Pupils equal, round and reactive to light. Oral mucosa moist. NECK: No JVD, no neck masses. CARDIOVASCULAR: S1 and S2 heard. Regular rate and rhythm. No murmur, no gallop. RESPIRATORY SYSTEM: Normal AP diameter. No accessory muscle use. No wheezing, no crackles. ABDOMEN: Soft, bowel sounds present, nontender, no distention. CENTRAL NERVOUS SYSTEM: Alert and oriented. Speech is clear. There is no facial droop. Obeys simple commands. Insight is okay. Moves extremities. EXTREMITIES: Mild edema, no erythema seen. LABORATORY DATA: WBC 0.3, hemoglobin 7.8, hematocrit 22.5, platelets 20. Sodium 129, potassium 3.2, chloride 97, bicarbonate 24, BUN 13, creatinine 0.8, serum glucose 125, calcium 8, total bilirubin 0.6, AST 12, ALT 15, alkaline phosphatase 92. TSH 4.4. Urinalysis, +3 blood. SARS-CoV-2 RNA negative. IMAGING DATA: Chest x-ray, no acute findings. ASSESSMENT AND PLAN: This is a 76-year-old female who presents with weakness and ambulatory dysfunction. 1. Weakness, ambulatory dysfunction, PT/OT. The patient has recurrent follicular lymphoma and AML, , PT, OT. The patient lives alone at home. May need more help at home or placement. Monitor in the medical floor. 2. Recurrent follicular lymphoma, acute myeloid leukemia. Recently saw Hem/Onc. Currently chemo is on hold, on prophylaxis cefpodoxime, Cresemba and acyclovir. . Recently bone marrow biopsy done, which showed 18% myeloblasts. Currently, the patient is taking labs twice a week. The patient states the last week she had 3 units of PRBC transfusions. The patient is agreeable for palliative care consult.Followup with heme/onco. 3. Pancytopenia from the chemo and cancer. Blood consent obtained to transfuse PRBC as needed, platelet transfusion for platelets less than 10,000 or active bleeding and platelets less than 50 K. 4. History of deep venous thrombosis, status post IVC filter placement, not on anticoagulation secondary to thrombocytopenia. 5. Paroxysmal atrial fibrillation, rate controlled with amiodarone and metoprolol, not on anticoagulation secondary to thrombocytopenia, anemia. 6. Hypothyroidism, on Synthroid. 7. Deep venous thrombosis prophylaxis: Sequential compression devices for now secondary to thrombocytopenia. 8. Full code as per my discussion with the patient. The patient states her daughter is coming tomorrow and then to re discuss code status. DISPOSITION: PT, OT prior to discharge. Social service to help with discharge planning. Job ID: [id number] [facility]
--- NOTE | 2022-01-06 10:14 | Communication Note ---
Date of Service: January 06, 2022 Patient seen and examined Agree with findings and exam as detailed in H&P by Dr Mojica this morning RN reported patient had urinary retention and needed straight cath on admission. Will monitor Agree with plans as detailed in H&P
[2022-01-06] MEDS: DOCUSATE SODIUM/SENNA 50/8.6MG TAB PO SCH (10:29)
--- NOTE | 2022-01-06 10:29 | Electrocardiogram Report ---
Test Reason : Blood Pressure : / mmHG Vent. Rate : 079 BPM Atrial Rate : 079 BPM P-R Int : 158 ms QRS Dur : 138 ms QT Int : 428 ms P-R-T Axes : 048 -30 044 degrees QTc Int : 490 ms Normal sinus rhythm Left axis deviation Right bundle branch block Abnormal ECG When compared with ECG of 30-DEC-2021 22:39, No significant change was found Confirmed by Matthew Miller ([id number]) on 01/06/2022 10:28:34 AM Referred By: REFERRED SELF Confirmed By:Jose Angel Miller
[2022-01-06] MEDS: ANUSOL SUPP 1 EA PR PRN (12:20)
[2022-01-06] MEDS: VENLAFAXINE HCL XR 75 MG CAPXR PO SCH (20:45)
[2022-01-07] MEDS: LEVOTHYROXINE SODIUM 125 MCG TABLET PO SCH (06:01)
[2022-01-07] MEDS: SPIRONOLACTONE 12.5 MG TAB PO SCH (07:59)
[2022-01-07] MEDS: FLUTICASONE PROPIONATE NA SPR 16 GM BTL SCH (07:59)
[2022-01-07] MEDS: ROSUVASTATIN CALCIUM 20 MG TAB PO SCH (08:00)
[2022-01-07] MEDS: METOPROLOL SUCC 25MG EXT REL TAB PO SCH (08:00)
[2022-01-07] MEDS: GABAPENTIN 400 MG CAP PO SCH ×3 (08:00→21:40)
[2022-01-07] MEDS: allopurinoL 300 MG TAB PO SCH (08:00)
[2022-01-07] MEDS: AMIODARONE 200 MG TAB PO SCH (08:00)
[2022-01-07] MEDS: ACYCLOVIR 400 MG TAB PO SCH ×2 (08:00→21:40)
[2022-01-07] MEDS: DOCUSATE SODIUM/SENNA 50/8.6MG TAB PO SCH (08:00)
[2022-01-07] MEDS: PANTOprazole 40 MG TAB PO SCH (08:01)
[2022-01-07 09:32] LABS: BUN Creatinine Ratio 13.1 (10-20); Calcium 7.9 mg/dl (8.5-10.1); Creatinine Clr Calc Pharmacy 62.6 ml/min; Est GFR (African American) 77.7 ml/min; Potassium 3.6 mmol/L (3.5-5.1)
[2022-01-07] MEDS: ACETAMINOPHEN 325 MG TAB PO PRN ×3 (09:36→21:45)
[2022-01-07 09:40] LABS: Mean Corpuscular Hgb Conc 33.8 g/dL (32-36); Mean Platelet Volume 8.7 fL (7.4-10.4); Platelet Count 19 K/uL (130-400)
[2022-01-07 09:41] LABS: Hematocrit (blood only) 22.2 % (37-47); Hemoglobin 7.5 g/dL (12.0-16.0); Mean Corpuscular Volume 85.7 fL (80-100); RDW Coefficient of Variation 14.4 % (11.5-14.5); RDW Standard Deviation 45.5 fL (36.4-46.3); Red Blood Count 2.59 M/uL (4.2-5.4); White Blood Count 0.61 K/uL (4.8-10.8)
[2022-01-07 10:08] LABS: Toxic Vacuolation 2+
[2022-01-07 10:14] LABS: ALC (manual) 0.29 K/uL (1.2-3.4); ANC (manual) 0.31 K/uL (1.4-6.5); Lymphocytes # (manual) 0.29 K/uL (1.2-3.4); Monocytes # (manual) 0.01 K/uL (0.11-0.59); Neutrophils # (manual) 0.31 K/uL (1.4-6.5)
[2022-01-07] MEDS ORDERED: SODIUM CHLORIDE 0.9% 250 ML IV PRN (10:41)
[2022-01-07] MEDS ORDERED: [UNRECOGNIZED DRUG - OTHER] PO SCH (10:45)
--- NOTE | 2022-01-07 11:16 | Palliative Care Consultation ---
Date of Consultation January 07, 2022 Assessment & Plan (1) Palliative care encounter: Ms. Link is a medically complex 76 year old female who presented to the [facility] with increased weakness. 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 On original admission in August 2021 for which Palliative Medicine was able to have a consultation with her. Further PMH includes: CVA, atrial fibrillation, Fe+ Deficiency Anemia, COPD, Thoracic AAA, Gastroparesis, GERD, CKD3, depression and anxiety. Currently, her chemo regimen is on hold. Her most recent bone marrow biopsy revealed 18% myeloblasts. Palliative medicine was consulted to discuss overall goals of care. I met with the patient at her bedside. As previously mentioned, she was evaluated by Palliative Medicine in August 2021. She spoke of the recent family gathering that she had and expressed that she 'wasn't feeling the greatest leading up to that visit'. During our visit, she was AAOx3 and in no apparent distress. Previously, she stated that her intension with continuing care was to 'keep going for her family'. She indicated that spending time with her 10 grandchildren was most important to her. She was able to see 4 of those grandchildren at this family gathering. She stated that she loves her brother manas who lives just two doors away from her. She mentioned that she went to [facility] [place] second opinion and they indicated that without treatment she had months of life and with life prolonging treatment could extend her life for a few years. She indicated that her granddaughter Laura is getting in 2022 and that is a driving force for her living; however, in speaking with her daughter, she does not feel that her mother will make it to that goal date. She did say that she feels that her days revolve around going to 'appointments and getting blood work'. We talked about what that meant. She said that she feels like she would be giving up if she decided not to pursue treatment. She said for now, she would like to continue with blood transfusions as the benefits outweigh the risks at this point. We discussed her code status and for now she would like to remain a full code. She did indicate that she has 4 adult children and her daughter Miya is the main decision maker should she not be able to make decisions. She has started legal POA paperwork and an advanced directive, back in August, but when I asked abou t these, she said they still are not completed. I encouraged the importance of having these items in place in the event she is unreliable for decision making. I did talk with Miya and Alisha about completing that paperwork while here in the hospital. [place] text and communication order placed for Ronaldo from [facility] to complete such medical decision making paperwork. I was able to talk with her daughter Miya, with Alisha's permission on the phone at [phone]. She does have concerns about her current condition. She said that Plan for a family meeting with Alisha and her daughter Miya on the phone tomorrow, 01/08/2022 at 1300 with palliative medicine to discuss overall goals of care, including code status. I encouraged Miya that we can talk about some difficult concerns and then based on her mother's wishes, can proceed with further discussion regarding placement vs home. Confirmed with patient that she would prefer Miya is the only one of her adult children on the call, no additional siblings at this time. Hospitalist and nursing aware of the above. Remain Full Code for now. Thanks again for involving palliative to assist with this patient. (2) Weakness: Persistent. She had a large family gathering over the past week, which brought her vinay, but also was increasingly tiring. Low Hgb contributing to overall weakness as well from anemic of chronic disease. (3) AML (acute myeloblastic leukemia): Typically sees Dr. Saucedo. Current chemo is on hold. Recent bone marrow biopsy revealed 18% myeloblasts. On prophylactic Cefpodoxine and Cresemba. Current WBC is 0.46 (4) Acute on chronic anemia: Related to AML diagnosis Admission Hgb 7.2. Goal to keep Hgb > 8.0 Planning on 1 UPRB to be infused today. Receives 1-2 UPBC transfusions per week. History of Present Illness Reason for Consultation: Goals of care Requesting Physician: Dr. Mojica Attending Physician: Kimber Kaufman MD History of Present Illness Ms. Link is a medically complex 75 year old female who presented to the [facility] with increased weakness, stroke like symptoms and new on set AF with RVR. 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 Further PMH includes: CVA, atrial fibrillation, Fe+ Deficiency Anemia, COPD, Thoracic AAA, Gastroparesis, GERD, CKD3, depression and anxiety. Palliative medicine was consulted to discuss overall goals of care. Thanks again for involving palliative to assist with this patient. Allergies Allergy/AdvReac Type Severity Reaction Status Date / Time No Known Allergies Allergy Verified 01/04/22 11:01 Home Medications Medication Instructions Recorded Confirmed Type fluticasone propionate 50 2 spray INTRANASAL QAM 08/03/19 01/05/22 History mcg/actuation nasal spray,suspension (Flonase Allergy Relief) pantoprazole 40 mg tablet,delayed 40 mg PO QAM 08/03/19 01/05/22 History release (Protonix) venlafaxine 75 mg capsule,extended 75 mg PO HS 08/03/19 01/05/22 History release 24 hr (Effexor XR) diclofenac sodium 1 % topical gel 4 g TOPICAL QID PRN 10/21/19 01/05/22 History (Voltaren Arthritis Pain) fluticasone furoate 100 1 inh INHALATION QAM PRN 05/02/21 01/05/22 History mcg-vilanterol 25 mcg/dose inhalation powder (Breo Ellipta) acyclovir 400 mg tablet 400 mg PO BID 09/17/21 01/05/22 History spironolactone 25 mg tablet 12.5 mg PO DAILY 09/17/21 01/05/22 History (Aldactone) allopurinol 300 mg tablet 300 mg PO DAILY 12/30/21 01/05/22 History cefpodoxime 200 mg tablet 200 mg PO Q12 12/30/21 01/05/22 History isavuconazonium sulfate 186 mg 186 mg PO BID 12/30/21 01/05/22 History capsule (Cresemba) levothyroxine 125 mcg tablet 125 mcg PO DAILYBB 12/30/21 01/05/22 History ondansetron HCl 8 mg tablet 8 mg PO Q8H PRN 12/30/21 01/05/22 History gabapentin 400 mg capsule 400 mg PO TID 12/31/21 01/05/22 History amiodarone 200 mg tablet 200 mg PO DAILY 01/05/22 01/05/22 History metoprolol succinate 25 mg 25 mg PO DAILY 01/05/22 01/05/22 History tablet,extended release 24 hr rosuvastatin 20 mg tablet 20 mg PO DAILY 01/05/22 01/05/22 History venetoclax 100 mg tablet 100 mg PO DAILY 01/05/22 01/05/22 History (Venclexta) Patient History Medical History (Updated 01/07/22 @ 11:12 by BELINDA Bates) Acute on chronic anemia AML (acute myeloblastic leukemia) Asthma Well controlled CKD (chronic kidney disease), stage III COPD (chronic obstructive pulmonary disease) Diverticulitis Hx Esophageal reflux Essential tremor Follicular lymphoma History of DVT (deep vein thrombosis) 2007 > in setting prolonged inactivity from hospital admission HLD (hyperlipidemia) HTN (hypertension) Hypothyroidism Palliative care encounter Pancreatitis Hx Post-herpetic trigeminal neuralgia Reason for gabapentin Thoracic aortic aneurysm without rupture Ascending thoracic aorta is ectatic up to 4.4 cm (Previously measured 4.1 cm in 2012. Slowly increasing in size) per 06/2020 CTA, under surveillance by Dr. Cohn Surgical History H/O parotidectomy (11/2003) H/O: hysterectomy History of bone marrow biopsy (10/2011) Jul 2021 History of cataract surgery bilat History of colonoscopy (02/16/19) History of cystoscopy (06/02/12) History of dilatation and curettage History of ERCP (06/21/08) History of esophagogastroduodenoscopy (EGD) (03/06/16) History of excision of lesion (04/02/21) Right Superficial Parotid S/P cholecystectomy S/P insertion of IVC (inferior vena caval) filter (06/26/12) 2011 > [place] Filter Placement Right Groin Dr. Srivastava at [facility] Status post excisional biopsy (07/07/17) Left Inguinal Lymph Node Dr. Anderson at [facility] Status post fine needle aspiration (04/05/21) Left External Iliac Lymph Node under USG Dr. Coreas at [facility] Status post fine needle aspiration (02/08/19) Right Parotid Gland Lesion Family History Grandmother (Maternal) , Passed Age 52 due to Colon Cancer No problems noted. Father , Passed Age 72 due to Lung Cancer, occupation related No problems noted. Mother , Passed Age 84 of unknown cancer No problems noted. Brother , Passed Age 70 of unknown cancer No problems noted. Brother No problems noted. Daughter CLL (chronic lymphocytic leukemia) Son No problems noted. Son No problems noted. Son No problems noted. Aunt , Passed Age 70 due to Breast Cancer No problems noted. 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 How many Children do You have: 4 Feels Safe at Home: Yes Safety Concerns: Feels Safe At This Time Childhood Exposure to Second-Hand Smoke: Yes (father smoked in home) caffeine: Yes (cola daily) during the past year weight has: remained stable Dental Care, Regularly: Yes Physical Activity Frequency: Does not Exercise Assistive Devices: None Review of Systems Review of Systems: [place] System Assessment Scale: Pain: 0/3 Tiredness: 2/3 Anxiety: 1/3 SOB: 0/3 Lack of Appetite: 1/3 Palliative Performance Scale: 50% Physical Exam Constitutional: well developed, + frail appearing, cooperative and comfortable ENMT: Mouth: oral mucous membranes not dry Respiratory: normal respiratory effort Auscultation: + diminished lung sounds Cardiovascular: Rate/Rhythm: regular rate and regular rhythm Heart Sounds: normal S1 and normal S2 Extremities: normal capillary refill; no edema Gastrointestinal (Abdomen): Inspection/Auscultation: abdomen normal to inspection Percussion/Palpation: abdomen soft Skin: + pallor Psychiatric: Orientation: alert and oriented x 3 Insight: good insight Judgement: good judgement Results & Data ([facility]) Vital Signs (Past 12 Hours) Vital Signs Temp Pulse Pulse Resp BP BP Pulse Ox 01/07/22 10:46 37.2 C 68 16 112/62 95 01/07/22 07:55 37.1 C 70 16 119/66 95 01/06/22 23:41 37 C 71 16 136/63 94 PG Care Time/CCT Total # of Minutes Spent Total Time Spent with Patient: Total time spent is greater than 50% in coordination of care (as documented) at patient's floor/unit and/or counseling patient: 100 minutes Coding Level of Care Code 40616 Initial Inpt Care Lvl 3 Diagnoses Palliative care encounter Z51.5 Weakness R53.1 AML (acute myeloblastic leukemia) C92.00 Acute on chronic anemia D64.9 Time Spent (min) 100
--- NOTE | 2022-01-07 11:22 | Hospitalist Progress Note ---
Date of Service January 07, 2022 Assessment & Plan (1) Generalized weakness: Plan: Generalized weakness Ambulatory dysfunction Etiology is multifactorial including patient's follicular lymphoma, AML, pancytopenia No obvious sign of infection PT/OT eval (2) Hyponatremia: Plan: Hyponatremia Serum Osm 265, Dana 652, Dana 69 On aldactone at home TSH is 4.4 Likely SIADH +/-med Fluid restriction and monitor (3) Paroxysmal atrial fibrillation with rapid ventricular response: (4) Pancytopenia: (5) Acute on chronic anemia: (6) Follicular lymphoma grade I: Plan: Has recurrent follicular lymphoma, AML Per pt, chemo recently stopped Has pancytopenia Hb is 7s since admission Per outpatient Onc notes, goal is to Keep Hb >8 Patient has been getting frequent transfusions Will give 1 PRBC Neutropenic. No fevers. Continue home cresemba, acyclovir, cefpodoxime (patient reports she will bring hers to hosp) Monitor CBC (7) Hypothyroidism: Plan: TSH 4.4 Continue synthroid (8) History of DVT (deep vein thrombosis): Plan: S/p IVC filter No anticoagulation in view of pancytopenia (9) Urinary retention: Plan: Currently has olson Get Bladder/Kidney USS Will start flomax Will do voiding trial later Admission and Anticipated Discharge Date Admission Date: January 06, 2022 Subjective Patient seen and examined Reports weakness Denied any fevers, chills, nausea, vomiting, abd pain, diarrhea, constipation Had urinary retention and needed olson inserted. Reported she has been having intermittent urinary retention over the past few weeks Denied dysuria, freq, hematuria Reports weakness with some exertion. Denied chest pain, palpitation Physical Exam Constitutional: + well hydrated; no acute distress Eyes: +pallor, PERRL ENMT: external ear and nose normal, oropharynx normal Respiratory: normal respiratory effort, lungs clear to auscultation Cardiovascular: Rate/Rhythm: regular rate and regular rhythm S1 S2 Gastrointestinal (Abdomen): normal bowel sounds, soft, nontender, no hepatosplenomegaly Musculoskeletal: no cyanosis or clubbing, extremities motor strength 5/5 Neurologic: PERRL, EOMI, accommodation nl, no face palsy, no dysarthria Genitourinary: Olson in situ Results & Data Results & Data ([facility]) Vital Signs (Past 12 Hours) Vital Signs Temp Pulse Pulse Resp BP BP Pulse Ox 01/07/22 10:46 37.2 C 68 16 112/62 95 01/07/22 07:55 37.1 C 70 16 119/66 95 01/06/22 23:41 37 C 71 16 136/63 94 Laboratory Results Abnormal lab results 01/07/22 01/07/22 01/07/22 Range/Units 08:02 08:02 09:35 WBC 0.61 L* (4.8-10.8) K/uL RBC 2.59 L (4.2-5.4) M/uL Hgb 7.5 L (12.0-16.0) g/dL Hct 22.2 L (37-47) % Plt Count 19 L* (130-400) K/uL Neutrophils # (Manual) 0.31 L (1.4-6.5) K/uL Total Absolute Neuts 0.31 L* (1.4-6.5) K/uL Lymphocytes # (Manual) 0.29 L (1.2-3.4) K/uL Total Abs Lymphocytes 0.29 L (1.2-3.4) K/uL Monocytes # (Manual) 0.01 L (0.11-0.59) K/uL Sodium 128 L (136-145) mmol/L Chloride 97 L (98-107) mmol/L Glucose 141 H (70-99(Fasting)) mg/dl Osmolality (280-300) mOsm/kg Calcium 7.9 L (8.5-10.1) mg/dl Ionized Calcium 1.06 L (1.12-1.32) mmol/L Crossmatch 01/07/22 01/07/22 Range/Units 09:35 11:10 WBC (4.8-10.8) K/uL RBC (4.2-5.4) M/uL Hgb (12.0-16.0) g/dL Hct (37-47) % Plt Count (130-400) K/uL Neutrophils # (Manual) (1.4-6.5) K/uL Total Absolute Neuts (1.4-6.5) K/uL Lymphocytes # (Manual) (1.2-3.4) K/uL Total Abs Lymphocytes (1.2-3.4) K/uL Monocytes # (Manual) (0.11-0.59) K/uL Sodium (136-145) mmol/L Chloride (98-107) mmol/L Glucose (70-99(Fasting)) mg/dl Osmolality 265 L (280-300) mOsm/kg Calcium (8.5-10.1) mg/dl Ionized Calcium (1.12-1.32) mmol/L Crossmatch See Detail (1) Follicular lymphoma grade I Lymphoma site: unspecified region Qualified Code(s): C82.00 - Follicular lymphoma grade I, unspecified site
[2022-01-07] MEDS: CEFPODOXIME 200 MG PO SCH (21:40)
[2022-01-07] MEDS: VENLAFAXINE HCL XR 75 MG CAPXR PO SCH (21:40)
[2022-01-07] MEDS: TAMSULOSIN HCL 0.4 MG CAP PO SCH (21:40)
[2022-01-07] MEDS: ANUSOL SUPP 1 EA PR PRN (22:31)
[2022-01-08] MEDS: ACETAMINOPHEN 325 MG TAB PO PRN (03:51)
[2022-01-08] MEDS: LEVOTHYROXINE SODIUM 125 MCG TABLET PO SCH (06:24)
--- NOTE | 2022-01-08 07:11 | Ultrasound Report ---
US renal/blad retro comp CLINICAL HISTORY: Urinary retention. COMPARISON: None. TECHNIQUE: Multiple grayscale and color images of the kidneys and bladder. FINDINGS: Right kidney: The kidney is normal in size and echogenicity. There is no evidence for renal calculus or hydronephrosis. There is no evidence for solid renal mass. There is no evidence for medical renal disease. The kidney measures 11.6 cm in greatest length. Left kidney: The kidney is normal in size and echogenicity. There is no evidence for renal calculus o r hydronephrosis. There is no evidence for solid renal mass. There is no evidence for medical renal d isease. The kidney measures 11.0 cm in greatest length. Bladder: Marroquin catheter is present within the bladder. IMPRESSION: Negative renal ultrasound. ACT 112: Negative or not required by law. Electronically signed by: Jonathan Peguero M.D. 01/08/2022 7:09 AM
[2022-01-08] MEDS: DOCUSATE SODIUM/SENNA 50/8.6MG TAB PO SCH (08:36)
[2022-01-08] MEDS: ACYCLOVIR 400 MG TAB PO SCH ×2 (08:39→20:21)
[2022-01-08] MEDS: ROSUVASTATIN CALCIUM 20 MG TAB PO SCH (08:39)
[2022-01-08] MEDS: METOPROLOL SUCC 25MG EXT REL TAB PO SCH (08:39)
[2022-01-08] MEDS: AMIODARONE 200 MG TAB PO SCH (08:39)
[2022-01-08] MEDS: GABAPENTIN 400 MG CAP PO SCH ×3 (08:39→20:19)
[2022-01-08] MEDS: PANTOprazole 40 MG TAB PO SCH (08:39)
[2022-01-08] MEDS: SPIRONOLACTONE 12.5 MG TAB PO SCH (08:39)
[2022-01-08] MEDS: FLUTICASONE PROPIONATE NA SPR 16 GM BTL SCH (08:40)
[2022-01-08] MEDS: CEFPODOXIME 200 MG PO SCH ×2 (08:40→20:20)
[2022-01-08] MEDS: allopurinoL 300 MG TAB PO SCH (08:40)
[2022-01-08 08:55] LABS: Hematocrit (blood only) 22.9 % (37-47); Hemoglobin 7.9 g/dL (12.0-16.0); Mean Corpuscular Hemoglobin 29.2 pg (25-34); Mean Corpuscular Hgb Conc 34.5 g/dL (32-36); Mean Corpuscular Volume 84.5 fL (80-100); Mean Platelet Volume 9.6 fL (7.4-10.4); Platelet Count 15 K/uL (130-400); RDW Coefficient of Variation 14.4 % (11.5-14.5); RDW Standard Deviation 44.7 fL (36.4-46.3); Red Blood Count 2.71 M/uL (4.2-5.4); White Blood Count 0.36 K/uL (4.8-10.8)
[2022-01-08 09:07] LABS: Calcium 7.8 mg/dl (8.5-10.1); Creatinine Clr Calc Pharmacy 70.1 ml/min; Est GFR (African American) 89.1 ml/min; Est GFR (Non-African American) 76.9 ml/min; Potassium 3.6 mmol/L (3.5-5.1)
--- NOTE | 2022-01-08 09:44 | Hospitalist Progress Note ---
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 Hb is 7.9 today With patient reporting feeling better, will hold transfusion for today and monitor Patient has been getting frequent transfusions Neutropenic. No fevers. Continue home acyclovir, cefpodoxime (patient's own med) Monitor CBC (7) Hypothyroidism: Plan: TSH 4.4 Continue synthroid (8) History of DVT (deep vein thrombosis): Plan: S/p IVC filter No anticoagulation in view of pancytopenia (9) Urinary retention: Plan: Currently has olson Bladder/Kidney USS normal Continue flomax RN advised to dc olson and do voiding trial Admission and Anticipated Discharge Date Admission Date: January 06, 2022 Subjective Patient seen and examined Reports she is feeling stronger today. Generalized weakness is improved Denied any fevers, chills, nausea, vomiting, abd pain, diarrhea, constipation Reports chronic hemorrhoidal pain with relief to suppository Had urinary retention 2 nights ago and needed olson was put in Reported she has been having intermittent urinary retention over the past few weeks Denied dysuria, freq, hematuria Denied chest pain, palpitation, cough Physical Exam Constitutional: + well hydrated; no acute distress Eyes: PERRL. Pale ENMT: external ear and nose normal, oropharynx normal Respiratory: normal respiratory effort, lungs clear to auscultation Cardiovascular: Rate/Rhythm: regular rate and regular rhythm S1 S2 Gastrointestinal (Abdomen): normal bowel sounds, soft, nontender, no hepatosplenomegaly Musculoskeletal: no cyanosis or clubbing, extremities motor strength 5/5 Neurologic: PERRL, EOMI, accommodation nl, no face palsy, no dysarthria Genitourinary: Olson in situ Results & Data Results & Data ([facility]) Vital Signs (Past 12 Hours) Vital Signs Temp Pulse Resp BP Pulse Ox 01/08/22 07:04 36.7 C 63 20 119/67 95 01/08/22 06:25 36.7 C 01/07/22 22:50 37.0 C 65 20 118/66 95 Laboratory Results Abnormal lab results 01/07/22 01/08/22 01/08/22 Range/Units 11:10 07:36 07:36 WBC 0.36 L* (4.8-10.8) K/uL RBC 2.71 L (4.2-5.4) M/uL Hgb 7.9 L (12.0-16.0) g/dL Hct 22.9 L (37-47) % Plt Count 15 L* (130-400) K/uL Sodium 128 L (136-145) mmol/L Chloride 97 L (98-107) mmol/L Glucose 111 H (70-99(Fasting)) mg/dl Calcium 7.8 L (8.5-10.1) mg/dl Ionized Calcium (1.12-1.32) mmol/L Crossmatch See Detail 01/08/22 Range/Units 07:36 WBC (4.8-10.8) K/uL RBC (4.2-5.4) M/uL Hgb (12.0-16.0) g/dL Hct (37-47) % Plt Count (130-400) K/uL Sodium (136-145) mmol/L Chloride (98-107) mmol/L Glucose (70-99(Fasting)) mg/dl Calcium (8.5-10.1) mg/dl Ionized Calcium 1.08 L (1.12-1.32) mmol/L Crossmatch (1) Follicular lymphoma grade I Lymphoma site: unspecified region Qualified Code(s): C82.00 - Follicular lymphoma grade I, unspecified site
--- NOTE | 2022-01-08 11:23 | Palliative Care Progress Note ---
Date of Service January 08, 2022 Assessment & Plan (1) Palliative care encounter: Plan: I met with the patient at her bedside. She remains AAOx3. She received one UPRBC in the afternoon yesterday and her Hgb went from 7.2-7.9. She reports having more energy and feels ' good'. She continues to be willing to have our previously arranged conversation with her daughter Gwen at 1:00, which we did have. Previously, she stated that her intension with continuing care was to 'keep going for her family'. She indicated that spending time with her 10 grandchildren was most important to her. She continued to say that she feels that her days revolve around going to 'appointments and getting blood work'. We talked about what that meant. She said that she feels like she would be giving up if she decided not to pursue treatment, but after opening up the opportunity for discussion, she was about to voice that she is starting to get tired. She said for now, she would like to continue with blood transfusions as the benefits outweigh the risks at this point and she feels she does have vinay in each of her days. We discussed her code status in detail on the zoom call with her daughter and after discussion, both are in agreement for a transition to DNR/DNI which is now reflected in the computer. Medical POA paperwork was initiated by Ronaldo Cárdenas with [employer] and Agnes Whatley, the automobile service advisor Nurse and Nya, one of the secretaries was able to be witness to signing a medical POA, her daughter Miya. For now, continue current treatment plan, including transfusions, understanding her dependance on them. The patient has been seen by PT/OT, but has declined in seeing one or both services over the past few days. Both patient and her daughter are receptive to short term rehabilitation at a SNF with an eventual transition home with additional caregiver (daughter) support, or a full transition of moving the patient to [place] to live with her daughter. I had started to complete a POLST form; however, the patient was quite tired and we agreed to complete POLST prior to discharge. Palliative will follow. (2) Weakness: Plan: Persistent. She had a large family gathering over the past week, which brought her vinay, but also was increasingly tiring. Low Hgb contributing to overall weakness as well from anemic of chronic disease. (3) AML (acute myeloblastic leukemia): Plan: Typically sees Dr. Saucedo. Current chemo is on hold. Recent bone marrow biopsy revealed 18% myeloblasts. On prophylactic Cefpodoxine and Cresemba. Current WBC is 0.46 (4) Acute on chronic anemia: Plan: Related to AML diagnosis Received 1 UPRBC yesterday. Hgb 7.2--> 7.9 after transfusion. Goal to keep Hgb > 8.0 Receives 1-2 UPBC transfusions per week. Admission and Anticipated Discharge Date Admission Date: January 06, 2022 Subjective Pt had one unit of PRBC infused yesterday afternoon Pt feeling more energetic today, but this has not lasted long, as she is quite tired after conversation today. She did participate in OT, but declined PT today. Pt denies pain, SOB, lack of appetite. Review of Systems Review of Systems: [place]field System Assessment Scale: Pain: 0/3 Tiredness: 2/3 Anxiety: 1/3 SOB: 0/3 Lack of Appetite: 1/3 Palliative Performance Scale: 50% Physical Exam Constitutional: well developed, + frail appearing, cooperative and comfortable ENMT: Mouth: oral mucous membranes not dry Respiratory: normal respiratory effort Auscultation: + diminished lung sounds Cardiovascular: Rate/Rhythm: regular rate and regular rhythm Heart Sounds: normal S1 and normal S2 Extremities: normal capillary refill; no edema Gastrointestinal (Abdomen): Inspection/Auscultation: abdomen normal to inspection Percussion/Palpation: abdomen soft Skin: + pallor Psychiatric: Orientation: alert and oriented x 3 Insight: good insight Judgement: good judgement Results & Data ([facility]) Vital Signs (Past 12 Hours) Vital Signs Temp Pulse Resp BP Pulse Ox 01/08/22 07:04 36.7 C 63 20 119/67 95 01/08/22 06:25 36.7 C PG Care Time/CCT Total # of Minutes Spent Total Time Spent with Patient: Total time spent is greater than 50% in coordination of care (as documented) at patient's floor/unit and/or counseling patient: 45 minutes Coding Level of Care Code 06084 Subseq Hosp Care Lvl 3 Diagnoses Palliative care encounter Z51.5 Weakness R53.1 AML (acute myeloblastic leukemia) C92.00 Acute on chronic anemia D64.9 Time Spent (min) 45
[2022-01-08] MEDS: SODIUM CHLORIDE 0.9% 1000ML 1,000 ML IV SCH (13:04)
[2022-01-08] MEDS: FUROSEMIDE INJ 20 MG/2 ML VIAL IV SCH ×2 (13:05→20:20)
[2022-01-08] MEDS: UREA (UREA-NA) 15 GM PACK PO SCH ×2 (14:30→20:21)
--- NOTE | 2022-01-08 14:33 | Consultation Report ---
NEPHROLOGY CONSULTATION NOTE REASON FOR CONSULTATION: Hyponatremia. HISTORY OF PRESENT ILLNESS: The patient is a 76-year-old female with advanced AML, currently chemotherapy is on hold. She presented to the hospital because of extreme weakness 2 days ago. She has not been eating well and she is only eating about 1 meal a day, but she was still drinking lots of liquid. As an outpatient, she takes spironolactone 12.5 daily, but otherwise no other diuretics. I have been consulted for hyponatremia management. Her serum sodium was 130 as an outpatient on 01/04/2022, but prior to that used to be normal. Since admission, serum sodium has been in the 128 range. Urine osmolarity is very inappropriately high at 652. However, sodium is not dropping, but it is not improving either. She also has significant pancytopenia at this point with a platelet count of 15K and severe neutropenia as well as anemia. She was also complaining of urinary retention and ultrasound was done and was unremarkable. Palliative medicine has also been involved at this point. Her hemodynamic status and vital signs appear to be acceptable. PAST MEDICAL AND SURGICAL HISTORY: Include history of recurrent follicular lymphoma with AML, chronic kidney disease stage III, history of melanoma, history of T12 compression fracture, osteoporosis, history of stroke, history of stenosis of left subclavian artery, gastroparesis, GERD, hypertension, thoracic aortic aneurysm, atrial fibrillation, COPD, chronic rhinitis, history of diastolic heart failure, chronic blood loss anemia, pancytopenia, history of DVT status post IVC filter, depression, anxiety, TIA, history of mucoepidermoid carcinoma of the low-grade, status post surgical excision, cystoscopy, endoscopies, excisional biopsies, cataract surgery, total abdominal hysterectomy, cholecystectomy. ALLERGIES: None. MEDICATIONS: At home was reviewed in detail and is as per the reconciliation list. Special interest to nephrology, she was on spironolactone 12.5 daily. FAMILY HISTORY: Significant for breast cancer. No renal disease or dialysis. SOCIAL HISTORY: She is a , lives alone currently. No smoking, no alcohol, no drugs. REVIEW OF SYSTEMS: As detailed in HPI. However, other than extreme weakness, she does not have any localizing symptoms at this point. PHYSICAL EXAMINATION: GENERAL: Elderly white female who appears to be weak and somewhat frail. She is not in any overt respiratory distress, but is very weak. Normal speech and was able to give a pretty detailed account of her medical history, following all commands. Normal speech. VITAL SIGNS: Blood pressure 145/74, pulse rate 75, temperature 36.8, 98% on room air. HEENT: Mucous membranes are moist. NECK: Supple. No jugular venous distention. CHEST: Bilaterally clear to auscultation. CARDIOVASCULAR: S1 and S2, regular. ABDOMEN: Soft, nontender. EXTREMITIES: Show no edema. SKIN: Shows no rashes. LABORATORY TESTS: Reviewed. Sodium 128, potassium 3.6, BUN 12, creatinine 0.75, ionized calcium 1.08, phosphorus 3, magnesium 2. Urine osmolarity inappropriately high at 652. Urine sodium 69. Renal ultrasound unremarkable. ASSESSMENT AND PLAN: A 76-year-old female with a very extensive medical problem list including advanced lymphoma/leukemia, now admitted with weakness with no other localizing symptoms. I have been consulted for hyponatremia, which appears to be new onset. Hyponatremia: She has euvolemic hyponatremia with a very high urine osmolarity. This is a case of SIADH, which tends to be quite common in people with cancer. At this point, for inpatient, I will give her normal saline 500 mL, but also give Lasix 20 IV twice daily to lower the urine osmolarity. Also give urea 15 grams twice daily. However, what we will do as an outpatient will depend on the input from the palliative medicine. It is worth noting that in lot of patients with advanced cancer, slightly low serum sodium is not uncommon and does not really cause any symptoms. I doubt the low sodium is the cause of the weakness, but it certainly adds to the problem. At this point, will do BMP once daily. Job ID: [id number] [facility]
[2022-01-08] MEDS: TAMSULOSIN HCL 0.4 MG CAP PO SCH (20:20)
[2022-01-08] MEDS: VENLAFAXINE HCL XR 75 MG CAPXR PO SCH (20:22)
[2022-01-09] MEDS: SODIUM CHLORIDE 0.9% 1000ML 1,000 ML IV SCH ×2 (01:46→14:08)
[2022-01-09] MEDS: LEVOTHYROXINE SODIUM 125 MCG TABLET PO SCH (05:32)
[2022-01-09] MEDS: UREA (UREA-NA) 15 GM PACK PO SCH (09:04)
[2022-01-09] MEDS: FUROSEMIDE INJ 20 MG/2 ML VIAL IV SCH (09:04)
[2022-01-09] MEDS: FLUTICASONE PROPIONATE NA SPR 16 GM BTL SCH (09:04)
[2022-01-09] MEDS: DOCUSATE SODIUM/SENNA 50/8.6MG TAB PO SCH (09:04)
[2022-01-09] MEDS: ACYCLOVIR 400 MG TAB PO SCH ×2 (09:05→20:55)
[2022-01-09] MEDS: AMIODARONE 200 MG TAB PO SCH (09:06)
[2022-01-09] MEDS: allopurinoL 300 MG TAB PO SCH (09:06)
[2022-01-09] MEDS: GABAPENTIN 400 MG CAP PO SCH ×3 (09:07→20:55)
[2022-01-09] MEDS: PANTOprazole 40 MG TAB PO SCH (09:09)
[2022-01-09] MEDS: CEFPODOXIME 200 MG PO SCH ×2 (09:09→20:55)
[2022-01-09] MEDS: ROSUVASTATIN CALCIUM 20 MG TAB PO SCH (09:10)
[2022-01-09] MEDS: SPIRONOLACTONE 12.5 MG TAB PO SCH (09:10)
[2022-01-09] MEDS: METOPROLOL SUCC 25MG EXT REL TAB PO SCH (09:11)
[2022-01-09] MEDS: ACETAMINOPHEN 325 MG TAB PO PRN (09:17)
--- NOTE | 2022-01-09 11:10 | Nephrology Progress Note ---
Date of Service January 09, 2022 Assessment & Plan Admission and Anticipated Discharge Date Admission Date: January 06, 2022 Subjective S---feeling weak. No acute symtpoms otherwise. GENERAL: Elderly white female who appears to be weak and somewhat frail. She is not in any overt respiratory distress, but is very weak. Normal speech and was able to give a pretty detailed account of her medical history, following all commands. Normal speech. HEENT: Mucous membranes are moist. NECK: Supple. No jugular venous distention. CHEST: Bilaterally clear to auscultation. CARDIOVASCULAR: S1 and S2, regular. ABDOMEN: Soft, nontender. EXTREMITIES: Show no edema. SKIN: Shows no rashes. LABORATORY TESTS: Reviewed. Sodium 128, potassium 3.6, BUN 12, creatinine 0.75, ionized calcium 1.08, phosphorus 3, magnesium 2. Urine osmolarity inappropriately high at 652. Urine sodium 69. Renal ultrasound unremarkable. labs today pending ASSESSMENT AND PLAN: A 76-year-old female with a very extensive medical problem list including advanced lymphoma/leukemia, now admitted with weakness with no other localizing symptoms. I have been consulted for hyponatremia, which appears to be new onset. Hyponatremia: She has euvolemic hyponatremia with a very high urine osmolarity. This is a case of SIADH, which tends to be quite common in people with cancer. At this point, for inpatient, I will give her normal saline 500 mL, but also give Lasix 20 IV twice daily to lower the urine osmolarity. Also give urea 15 grams twice daily. However, what we will do as an outpatient will depend on the input from the palliative medicine. It is worth noting that in lot of patients with advanced cancer, slightly low serum sodium is not uncommon and does not really cause any symptoms. I doubt the low sodium is the cause of the weakness, but it certainly adds to the problem. No labs today so will do urgently. At this point, will do BMP once daily. Further management after lab results from today Results & Data ([facility]) Vital Signs (Past 12 Hours) Vital Signs Temp Pulse Resp BP Pulse Ox 01/09/22 07:02 37.0 C 74 20 126/68 94
[2022-01-09 13:36] LABS: Mean Corpuscular Hemoglobin 29.3 pg (25-34); Mean Corpuscular Hgb Conc 34.8 g/dL (32-36); Mean Corpuscular Volume 84.2 fL (80-100); Mean Platelet Volume 10.4 fL (7.4-10.4); Platelet Count 13 K/uL (130-400); Platelet Estimate SIGNIFIC DECREASED (Normal); RDW Coefficient of Variation 14.1 % (11.5-14.5); RDW Standard Deviation 43.3 fL (36.4-46.3); Red Blood Count 2.73 M/uL (4.2-5.4); White Blood Count 0.28 K/uL (4.8-10.8)
--- NOTE | 2022-01-09 13:38 | Hospitalist Progress Note ---
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 Last was 2 days ago Repeat CBC pending (5) Acute on chronic anemia: (6) Follicular lymphoma grade I: Plan: Has recurrent follicular lymphoma, AML Per pt, chemo recently stopped Has pancytopenia Hb is 7s since admission Per outpatient Onc notes, goal is to Keep Hb >/=8 Got 1 PRBC 01/07. Hb is 7.9 01/08, repeat is pending Continue home acyclovir, cefpodoxime (patient's own med) (7) Hypothyroidism: Plan: TSH 4.4 Continue synthroid (8) History of DVT (deep vein thrombosis): Plan: S/p IVC filter No anticoagulation in view of pancytopenia (9) Urinary retention: Plan: Bladder/Kidney US normal Continue flomax RN advised to dc olson and do voiding trial Plan: Disposition- Evaluated by OT and SNF recommended, PT evaluation pending Admission and Anticipated Discharge Date Admission Date: January 06, 2022 Subjective felt weak earlier in the day but currently feels better Denies fever/chills, nausea/vomiting Physical Exam Physical Exam: Laying in bed, no acute distress Respiratory: breathing comfortably on room air, no wheezing/rhonchi/rales Cardiovascular: regular rate and rhythm, no murmurs/rubs/gallops Gastrointestinal (Abdomen): soft, non tender Musculoskeletal: no edema Neurologic: awake, alert, spontaneously moving extremities Results & Data Results & Data ([facility]) Vital Signs (Past 12 Hours) Vital Signs Temp Pulse Resp BP Pulse Ox 01/09/22 12:26 36.7 C 58 L 18 104/54 L 95 01/09/22 07:02 37.0 C 74 20 126/68 94 Laboratory Results Pending Medications Administered Current Inpatient Medications Acetaminophen (Acetaminophen 325 Mg Tab) 650 mg PO Q4H PRN PRN Reason: pain/fever Stop: 02/05/22 05:07 Last Admin: 01/09/22 09:17 Dose: 650 mg Documented by: Acyclovir (Acyclovir 400 Mg Tab) 400 mg PO BID AJAY Stop: 02/05/22 08:59 Last Admin: 01/09/22 09:05 Dose: 400 mg Documented by: Allopurinol (Allopurinol 300 Mg Tab) 300 mg PO DAILY AJAY Stop: 02/05/22 08:59 Last Admin: 01/09/22 09:06 Dose: 300 mg Documented by: Amiodarone HCl (Amiodarone 200 Mg Tab) 200 mg PO DAILY AJAY Stop: 02/05/22 08:59 Last Admin: 01/09/22 09:06 Dose: 200 mg Documented by: Diclofenac Sodium (Diclofenac Sod 1% Gel 100 Gm Tube) 4 gm EXT QID PRN PRN Reason: Pain Stop: 02/05/22 05:07 Fluticasone Propionate (Fluticasone Propionate Na Spr 16 Gm Btl) 2 sprays NA QAM AJAY Stop: 02/05/22 08:59 Last Admin: 01/09/22 09:04 Dose: 2 sprays Documented by: Fluticasone/Vilanterol (Fluticasone/Vilanterol 100/25mcg 14 Puffs/Inhaler) 1 puffs INH QAM PRN PRN Reason: Shortness Of Breath Or Wheezing Stop: 02/05/22 05:07 Last Admin: 01/08/22 08:38 Dose: 1 puffs Documented by: Furosemide (Furosemide Inj 20 Mg/2 Ml Vial) 20 mg IV BID AJAY Stop: 02/07/22 12:59 Last Admin: 01/09/22 09:04 Dose: 20 mg Documented by: Gabapentin (Gabapentin 400 Mg Cap) 400 mg PO TID AJAY Stop: 02/05/22 08:59 Last Admin: 01/09/22 09:07 Dose: 400 mg Documented by: Heparin Sodium (Porcine) (Heparin 100 Unit/Ml 5ml Flush) 5 ml FLUSH PRN PRN PRN Reason: Flush Stop: 02/05/22 23:01 Sodium Chloride (Nss 1000ml) 1,000 mls @ 80 mls/hr IV .[id number] [facility] Stop: 02/07/22 12:59 Last Admin: 01/09/22 01:46 Dose: 80 mls/hr Documented by: Levothyroxine Sodium (Levothyroxine Sodium 125 Mcg Tablet) 125 mcg PO DAILYBB [facility] Stop: 02/05/22 06:29 Last Admin: 01/09/22 05:32 Dose: 125 mcg Documented by: Metoprolol Succinate (Metoprolol Succ 25mg Ext Rel Tab) 25 mg PO DAILY [facility] Stop: 02/05/22 08:59 Last Admin: 01/09/22 09:11 Dose: 25 mg Documented by: Cefpodoxime 200mg Tab: Non Formulary Pt Own Med 1 ea PO Q12 [facility] Stop: 02/06/22 20:59 Last Admin: 01/09/22 09:09 Dose: 1 cap Documented by: Ondansetron HCl (Ondansetron Inj 2 Mg/Ml 2 Ml Vial) 4 mg IV Q6H PRN PRN Reason: Nausea Stop: 02/05/22 05:07 Pantoprazole Sodium (Pantoprazole 40 Mg Tab) 40 mg PO QAM [facility] Stop: 02/05/22 08:59 Last Admin: 01/09/22 09:09 Dose: 40 mg Documented by: Phenylephrine HCl (Anusol Supp 1 Ea) 1 ea AR DAILY PRN PRN Reason: Hemorrhoids Stop: 02/05/22 11:10 Last Admin: 01/07/22 22:31 Dose: 1 ea Documented by: Polyethylene Glycol (Polyethylene (Miralax) 17 Gm Pack) 17 gm PO DAILY PRN PRN Reason: Constipation Stop: 02/05/22 05:07 Rosuvastatin Calcium (Rosuvastatin Calcium 20 Mg Tab) 20 mg PO DAILY [facility] Stop: 02/05/22 08:59 Last Admin: 01/09/22 09:10 Dose: 20 mg Documented by: Senna/Docusate Sodium (Docusate Sodium/Senna 50/8.6mg Tab) 1 tab PO QAM [facility] Stop: 02/05/22 10:14 Last Admin: 01/09/22 09:04 Dose: 1 tab Documented by: Spironolactone (Spironolactone 12.5 Mg Tab) 12.5 mg PO DAILY [facility] Stop: 02/05/22 08:59 Last Admin: 01/09/22 09:10 Dose: 12.5 mg Documented by: Tamsulosin HCl (Tamsulosin Hcl 0.4 Mg Cap) 0.4 mg PO [facility] Stop: 02/06/22 20:59 Last Admin: 01/08/22 20:20 Dose: 0.4 mg Documented by: Urea (Urea (Urea-Na) 15 Gm Pack) 15 gm PO BID AJAY Stop: 02/07/22 12:59 Last Admin: 01/09/22 09:04 Dose: 15 gm Documented by: Venlafaxine HCl (Venlafaxine Hcl Xr 75 Mg Capxr) 75 mg PO [facility] Stop: 02/05/22 20:59 Last Admin: 01/08/22 20:22 Dose: 75 mg Documented by: (1) Follicular lymphoma grade I Lymphoma site: unspecified region Qualified Code(s): C82.00 - Follicular lymphoma grade I, unspecified site
[2022-01-09 13:41] LABS: BUN Creatinine Ratio 44.9 (10-20); Calcium 7.8 mg/dl (8.5-10.1); Creatinine Clr Calc Pharmacy 67.4 ml/min; Est GFR (Non-African American) 73.3 ml/min; Potassium 3.2 mmol/L (3.5-5.1)
[2022-01-09] MEDS: POTASSIUM CHLORIDE CRTAB 20 MEQ TABCR PO SCH ×2 (14:09→20:55)
[2022-01-09] MEDS: VENLAFAXINE HCL XR 75 MG CAPXR PO SCH (20:55)
[2022-01-09] MEDS: FUROSEMIDE 40 MG/4 ML VIAL IV SCH (20:55)
[2022-01-09] MEDS: TAMSULOSIN HCL 0.4 MG CAP PO SCH (20:55)
[2022-01-10] MEDS: SODIUM CHLORIDE 0.9% 1000ML 1,000 ML IV SCH ×2 (03:11→18:12)
[2022-01-10] MEDS: LEVOTHYROXINE SODIUM 125 MCG TABLET PO SCH (05:55)
[2022-01-10] MEDS: ANUSOL SUPP 1 EA PR PRN (08:14)
[2022-01-10 08:35] LABS: Calcium 7.7 mg/dl (8.5-10.1); Est GFR (African American) 92.1 ml/min; Est GFR (Non-African American) 79.4 ml/min; Magnesium 1.8 mg/dl (1.7-2.4); Potassium 3.6 mmol/L (3.5-5.1)
[2022-01-10 08:45] LABS: Hematocrit (blood only) 21.5 % (37-47); Hemoglobin 7.3 g/dL (12.0-16.0); Mean Corpuscular Hemoglobin 28.5 pg (25-34); Mean Platelet Volume 8.7 fL (7.4-10.4); Nucleated RBC # (auto) 0.05 K/uL (0-0); Nucleated RBC % (auto) 20.9 %; Platelet Count 10 K/uL (130-400); RDW Coefficient of Variation 14.1 % (11.5-14.5); RDW Standard Deviation 43.8 fL (36.4-46.3); Red Blood Count 2.56 M/uL (4.2-5.4); White Blood Count 0.23 K/uL (4.8-10.8)
[2022-01-10] MEDS: FUROSEMIDE 40 MG/4 ML VIAL IV SCH ×2 (09:00→21:47)
[2022-01-10] MEDS: DOCUSATE SODIUM/SENNA 50/8.6MG TAB PO SCH (09:00)
[2022-01-10] MEDS: FLUTICASONE PROPIONATE NA SPR 16 GM BTL SCH (09:00)
[2022-01-10] MEDS: POTASSIUM CHLORIDE CRTAB 20 MEQ TABCR PO SCH ×3 (09:00→21:40)
[2022-01-10] MEDS: CEFPODOXIME 200 MG PO SCH (09:00)
[2022-01-10] MEDS ORDERED: SODIUM CHLORIDE 0.9% 250 ML IV PRN (09:33)
[2022-01-10] MEDS: ACETAMINOPHEN 325 MG TAB PO PRN ×2 (10:19→17:40)
[2022-01-10] MEDS: ROSUVASTATIN CALCIUM 20 MG TAB PO SCH (11:23)
[2022-01-10] MEDS: allopurinoL 300 MG TAB PO SCH (11:25)
[2022-01-10] MEDS: ACYCLOVIR 400 MG TAB PO SCH ×2 (11:26→21:40)
[2022-01-10] MEDS: AMIODARONE 200 MG TAB PO SCH (11:26)
[2022-01-10] MEDS: PANTOprazole 40 MG TAB PO SCH (11:28)
[2022-01-10] MEDS: GABAPENTIN 400 MG CAP PO SCH ×3 (11:28→21:38)
[2022-01-10] MEDS: METOPROLOL SUCC 25MG EXT REL TAB PO SCH (11:28)
--- NOTE | 2022-01-10 11:34 | Nephrology Progress Note ---
Date of Service January 10, 2022 Assessment & Plan Admission and Anticipated Discharge Date Admission Date: January 06, 2022 Subjective Subjective S---feeling weak. No acute symptoms otherwise. GENERAL: Elderly white female who appears to be weak and somewhat frail. She is not in any overt respiratory distress, but is very weak. Normal speech and was able to give a pretty detailed account of her medical history, following all commands. Normal speech. HEENT: Mucous membranes are moist. NECK: Supple. No jugular venous distention. CHEST: Bilaterally clear to auscultation. CARDIOVASCULAR: S1 and S2, regular. ABDOMEN: Soft, nontender. EXTREMITIES: Show no edema. SKIN: Shows no rashes. LABORATORY TESTS: Reviewed. Sodium 130 today. normal bun and creat. ASSESSMENT AND PLAN: A 76-year-old female with a very extensive medical problem list including advanced lymphoma/leukemia, now admitted with weakness with no other localizing symptoms. I have been consulted for hyponatremia, which appears to be new onset. Hyponatremia: She has euvolemic hyponatremia with a very high urine osmolarity. This is a case of SIADH, which tends to be quite common in people with cancer. At this point, for inpatient, I will give her normal saline 500 mL, but also give Lasix 40 IV twice daily to lower the urine osmolarity. However, what we will do as an outpatient will depend on the input from the palliative medicine. It is worth noting that in lot of patients with advanced cancer, slightly low serum sodium is not uncommon and does not really cause any symptoms. I doubt the low sodium is the cause of the weakness, but it certainly adds to the problem. At this point, will do BMP once daily. Continue lasix 40 iv bid ( to lower urine osm) and NS at 80 per hr. Urea stopped for hard to take FFR 1200 ml per day. severe Pancytopenia--defer to primary team. Results & Data ([facility]) Vital Signs (Past 12 Hours) Vital Signs Temp Pulse Pulse Resp BP BP Pulse Ox 01/10/22 10:58 36.9 C 67 18 114/60 96 01/10/22 06:49 36.7 C 71 20 113/60 95
--- NOTE | 2022-01-10 14:22 | Hospitalist Progress Note ---
Date of Service January 10, 2022 Assessment & Plan (1) Generalized weakness: Plan: Generalized weakness Ambulatory dysfunction Etiology is multifactorial including patient's follicular lymphoma, AML, pancytopenia No obvious sign of infection Will appreciate PT/OT eval--recommending SNF, however patient would like to return home. Her daughter, Gwen, will be moving in with her starting on Friday and depending on how things go, may remain there or have patient come back with her to [place]. In the interim, I have asked Gwen to coordinate with her other family members so that patient is not alone in next couple days until Gwen arrives. CM was messaged to arrange for home care services and to coordiate with family (2) Hyponatremia: Plan: Hyponatremia Serum Osm 265, Dana 652, Dana 69 On aldactone at home TSH is 4.4 Likely SIADH +/-med IV lasix and NSS, management per Nephrology (3) Paroxysmal atrial fibrillation with rapid ventricular response: Plan: -Currently in sinus rhythm, on Toprol 25mg daily and amiodarone -not on AC due to pancytopenia (4) Pancytopenia: Plan: Gets twice weekly labwork and weekly transfusion. Recently transfusion frequency has increased to twice a week s/p 1 uni pRBC 01/07 1 unit RBC and 1 unit platelet today (5) Acute on chronic anemia: (6) Follicular lymphoma grade I: Plan: Has recurrent follicular lymphoma, AML Per pt, chemo recently stopped Has pancytopenia Hb is 7s since admission Per outpatient Onc notes, goal is to Keep Hb >/=8 Continue home acyclovir, cefpodoxime (patient's own med) (7) Hypothyroidism: Plan: TSH 4.4 Continue synthroid (8) History of DVT (deep vein thrombosis): Plan: S/p IVC filter No anticoagulation in view of pancytopenia (9) Urinary retention: Plan: Bladder/Kidney US normal continue flomax Plan: Disposition- Evaluated by OT and SNF recommended, but patient wants to return home. CM contacted to help coordinate with family and make arrangements. Admission and Anticipated Discharge Date Admission Date: January 06, 2022 Subjective Feeling very weak, cold Getting 1 unit platelet and 1 unit RBC today Patient does not want to go to SNF. Wants to return home. I discussed with Gwen, her daughter, at her request Physical Exam Physical Exam: Appears pale, weak, no acute distress Respiratory: breathing comfortably on room air, no wheezing/rhonchi/rales Cardiovascular: regular rate and rhythm, no murmurs/rubs/gallops Gastrointestinal (Abdomen): soft, non tender Musculoskeletal: no edema Neurologic: awake, alert, spontaneously moving extremities Results & Data Results & Data ([facility]) Vital Signs (Past 12 Hours) Vital Signs Temp Pulse Pulse Resp BP BP Pulse Ox 01/10/22 14:00 36.7 C 81 17 122/57 L 97 01/10/22 13:45 36.5 C 69 16 107/64 96 01/10/22 13:24 36.3 C L 69 16 88/50 L 96 01/10/22 12:30 36.7 C 69 16 93/51 L 95 01/10/22 12:15 36.7 C 71 18 102/54 L 94 01/10/22 12:00 36.7 C 67 16 102/52 L 95 01/10/22 11:30 36.7 C 67 16 107/58 L 95 01/10/22 11:15 37.3 C 64 18 113/58 L 95 01/10/22 11:00 36.9 C 67 18 114/60 96 01/10/22 10:58 36.9 C 67 18 114/60 96 01/10/22 06:49 36.7 C 71 20 113/60 95 Laboratory Results Short CBC 01/10/22 Range/Units 07:50 WBC 0.23 L* (4.8-10.8) K/uL Hgb 7.3 L (12.0-16.0) g/dL Hct 21.5 L (37-47) % Plt Count 10 L* (130-400) K/uL BMP 01/10/22 07:52 Sodium 130 L Potassium 3.6 Chloride 97 L Carbon Dioxide 28 BUN 19 Creatinine 0.73 Glucose 113 H Calcium 7.7 L Medications Administered Current Inpatient Medications Acetaminophen (Acetaminophen 325 Mg Tab) 650 mg PO Q4H PRN PRN Reason: pain/fever Stop: 02/05/22 05:07 Last Admin: 01/10/22 10:19 Dose: 650 mg Documented by: Acyclovir (Acyclovir 400 Mg Tab) 400 mg PO BID AJAY Stop: 02/05/22 08:59 Last Admin: 01/10/22 11:26 Dose: 400 mg Documented by: Allopurinol (Allopurinol 300 Mg Tab) 300 mg PO DAILY AJAY Stop: 02/05/22 08:59 Last Admin: 01/10/22 11:25 Dose: 300 mg Documented by: Amiodarone HCl (Amiodarone 200 Mg Tab) 200 mg PO DAILY AJAY Stop: 02/05/22 08:59 Last Admin: 01/10/22 11:26 Dose: 200 mg Documented by: Diclofenac Sodium (Diclofenac Sod 1% Gel 100 Gm Tube) 4 gm EXT QID PRN PRN Reason: Pain Stop: 02/05/22 05:07 Fluticasone Propionate (Fluticasone Propionate Na Spr 16 Gm Btl) 2 sprays NA QAM AJAY Stop: 02/05/22 08:59 Last Admin: 01/10/22 09:00 Dose: 2 sprays Documented by: Fluticasone/Vilanterol (Fluticasone/Vilanterol 100/25mcg 14 Puffs/Inhaler) 1 puffs INH QAM PRN PRN Reason: Shortness Of Breath Or Wheezing Stop: 02/05/22 05:07 Last Admin: 01/08/22 08:38 Dose: 1 puffs Documented by: Furosemide (Furosemide 40 Mg/4 Ml Vial) 40 mg IV BID AJAY Stop: 02/08/22 20:59 Last Admin: 01/10/22 09:00 Dose: 40 mg Documented by: Gabapentin (Gabapentin 400 Mg Cap) 400 mg PO TID JAAY Stop: 02/05/22 08:59 Last Admin: 01/10/22 11:28 Dose: 400 mg Documented by: Heparin Sodium (Porcine) (Heparin 100 Unit/Ml 5ml Flush) 5 ml FLUSH PRN PRN PRN Reason: Flush Stop: 02/05/22 23:01 Sodium Chloride (Nss 1000ml) 1,000 mls @ 80 mls/hr IV .[id number] AJAY Stop: 02/07/22 12:59 Last Admin: 01/10/22 03:11 Dose: 80 mls/hr Documented by: Sodium Chloride (Nss) 250 mls @ 15 mls/hr IV .[id number] PRN PRN Reason: For Transfusion Stop: 01/10/22 19:33 Levothyroxine Sodium (Levothyroxine Sodium 125 Mcg Tablet) 125 mcg PO DAILYBB [facility] Stop: 02/05/22 06:29 Last Admin: 01/10/22 05:55 Dose: 125 mcg Documented by: Metoprolol Succinate (Metoprolol Succ 25mg Ext Rel Tab) 25 mg PO DAILY [facility] Stop: 02/05/22 08:59 Last Admin: 01/10/22 11:28 Dose: 25 mg Documented by: Cefpodoxime 200mg Tab: Non Formulary Pt Own Med 1 ea PO Q12 [facility] Stop: 02/06/22 20:59 Last Admin: 01/10/22 09:00 Dose: 1 cap Documented by: Ondansetron HCl (Ondansetron Inj 2 Mg/Ml 2 Ml Vial) 4 mg IV Q6H PRN PRN Reason: Nausea Stop: 02/05/22 05:07 Pantoprazole Sodium (Pantoprazole 40 Mg Tab) 40 mg PO QAM [facility] Stop: 02/05/22 08:59 Last Admin: 01/10/22 11:28 Dose: 40 mg Documented by: Phenylephrine HCl (Anusol Supp 1 Ea) 1 ea AR DAILY PRN PRN Reason: Hemorrhoids Stop: 02/05/22 11:10 Last Admin: 01/10/22 08:14 Dose: 1 ea Documented by: Polyethylene Glycol (Polyethylene (Miralax) 17 Gm Pack) 17 gm PO DAILY PRN PRN Reason: Constipation Stop: 02/05/22 05:07 Potassium Chloride (Potassium Chloride Crtab 20 Meq Tabcr) 20 meq PO TID [facility] Stop: 01/11/22 09:01 Last Admin: 01/10/22 13:18 Dose: 20 meq Documented by: Rosuvastatin Calcium (Rosuvastatin Calcium 20 Mg Tab) 20 mg PO DAILY [facility] Stop: 02/05/22 08:59 Last Admin: 01/10/22 11:23 Dose: 20 mg Documented by: Senna/Docusate Sodium (Docusate Sodium/Senna 50/8.6mg Tab) 1 tab PO QAM [facility] Stop: 02/05/22 10:14 Last Admin: 01/10/22 09:00 Dose: Not Given Documented by: Tamsulosin HCl (Tamsulosin Hcl 0.4 Mg Cap) 0.4 mg PO HS [facility] Stop: 02/06/22 20:59 Last Admin: 01/09/22 20:55 Dose: 0.4 mg Documented by: Venlafaxine HCl (Venlafaxine Hcl Xr 75 Mg Capxr) 75 mg PO HS AJAY Stop: 02/05/22 20:59 Last Admin: 01/09/22 20:55 Dose: 75 mg Documented by: (1) Follicular lymphoma grade I Lymphoma site: unspecified region Qualified Code(s): C82.00 - Follicular lymphoma grade I, unspecified site
[2022-01-10] MEDS ORDERED: LORazepam 2 MG/1 ML VIAL IV STA (14:56)
[2022-01-10] MEDS ORDERED: diphenhydrAMINE 50 MG/ML VIAL IV STA (14:58)
[2022-01-10] MEDS ORDERED: diphenhydrAMINE 50 MG/ML VIAL ONE (15:00)
--- NOTE | 2022-01-10 15:27 | XRay Report ---
XR chest 1V portable CLINICAL HISTORY: shortness of breath COMPARISON STUDY: Chest radiograph January 05, 2022. FINDINGS: Right internal jugular [id number] is in place. No pneumothorax or pleural effusion. No c onsolidation. Pulmonary vascular congestion has progressed. There may be mild pulmonary edema. Cardio megaly is unchanged. Mediastinal contours are stable. IMPRESSION: Progression of pulmonary vascular congestion with possible mild pulmonary edema. ACT 112: Negative or not required by law. Electronically signed by: Stevenson Coreas M.D. 01/10/2022 3:25 PM
[2022-01-10 15:34] LABS: Fibrinogen 477 mg/dl (184-400)
[2022-01-10 15:35] LABS: Albumin Globulin Ratio 1.3 (0.9-2); Albumin Level 3.4 gm/dl (3.4-5.0); Bilirubin,Total 5.4 mg/dl (0.2-1.0); Creatinine Clr Calc Pharmacy 59.7 ml/min; Est GFR (African American) 73.5 ml/min; Est GFR (Non-African American) 63.4 ml/min; Globulin 2.6 gm/dl (2.5-4.0); Potassium 3.9 mmol/L (3.5-5.1)
[2022-01-10 15:51] LABS: Hematocrit (blood only) 23.4 % (37-47); Hemoglobin 7.9 g/dL (12.0-16.0); Mean Corpuscular Hemoglobin 29.3 pg (25-34); Mean Corpuscular Hgb Conc 33.8 g/dL (32-36); Mean Corpuscular Volume 86.7 fL (80-100); Mean Platelet Volume 8.6 fL (7.4-10.4); Platelet Count 32 K/uL (130-400); RDW Coefficient of Variation 14.3 % (11.5-14.5)
[2022-01-10 15:56] LABS: Platelet Estimate Decreased (Normal)
[2022-01-10] MEDS ORDERED: PIPERACILL/TAZOBAC CONSULT ACTIVE PRN (16:01)
[2022-01-10] MEDS ORDERED: PIPERACILLIN/TAZOBACTAM 3.375 GM in DEXTROSE 5% 100 ML IV ONE (16:30)
[2022-01-10] MEDS ORDERED: OPTIRAY 320 100ml IV ONE (16:51)
--- NOTE | 2022-01-10 17:12 | CT Scan Report ---
CT OF THE ABDOMEN AND PELVIS WITH CONTRAST CLINICAL HISTORY: Sepsis, biliary source suspected. COMPARISON STUDY: CT of the abdomen and pelvis July 03, 2021. Renal ultrasound January 10, 2022. TECHNIQUE: Following IV administration of 93 mL of Optiray, axial images of the abdomen and pelvis we re obtained from the lung bases to the proximal femurs. Images were reviewed in the axial, sagittal, and coronal planes. IV contrast was administered without complication. Automated exposure control wa s utilized for the study. A dose lowering technique was utilized adhering to the principles of ALARA . CT DOSE: 860.90 mGycm FINDINGS: Lung bases are unremarkable. This exam is mildly compromised by motion artifact. Mild bilia ry ductal dilatation is unchanged since CT of July 03, 2021 and likely related to cholecystectom y. There are no suspicious hepatic lesions. Focal fat along the falciform ligament is present. IVC fi lter is in place. The spleen, adrenal glands, left kidney and pancreas are unremarkable. Probable rig ht renal cyst is present. There is no hydronephrosis. No peripancreatic infiltration. There is no maxi dence for a bowel obstruction. Sigmoid diverticulosis is noted without evidence for acute diverticuli tis. Presacral stranding is present. Note is made of a rim-enhancing 2 x 1.8 cm posterior perirectal fluid collection consistent with an abscess. This abscess is along the posterior wall of the inferior rectum. There may be an associated fistula which extends to the medial fold of the right buttock. Pe lvic collaterals are chronic. No additional fluid collections are present. There is no soft tissue ga s. Old T12 compression deformity is unchanged. No acute fracture within visualized skeletal structure s. IMPRESSION: 1. 2 x 1.8 cm rim-enhancing fluid collection along the posterior wall of the rectum with possible ass ociated fistula which extends toward the medial fold of the right buttock. This is consistent with a perirectal abscess. 2. Presacral stranding which is nonspecific although could be treatment related. 3. No bowel obstruction. Colonic diverticulosis without evidence for acute diverticulitis. 4. No change in mild biliary ductal dilatation since CT of July 03, 2021. This is probably relat ed to cholecystectomy. ACT 112: Negative or not required by law. Electronically signed by: Stevenson Coreas M.D. 01/10/2022 5:10 PM
[2022-01-10 21:22] LABS: Appearance Urine Clear (Clear); Bacteria Urine Automated 4+ (Negative); Blood Urine 2+ (Negative); Color Urine Orange; Epithelial Cell Urine Auto >30 /lpf (0-5); Glucose Urine UA Negative (Negative); Ketones Urine Negative (Negative); Leukocyte Esterase Urine Trace (Negative); Nitrite Urine Positive (Negative); Protein Urine Trace (Negative); Specific Gravity Urine > 1.045 (1.000-1.030); Urobilinogen Urine Negative (Negative); pH Urine 5.5 (4.5-7.5)
[2022-01-10 21:23] LABS: Bilirubin Urine 1+ (Negative)
[2022-01-10 21:25] LABS: Blood Urine 2+ (Negative)
[2022-01-10] MEDS: PIPERACILLIN/TAZOBACTAM 3.375 GM in DEXTROSE 5% 100 ML IV SCH (21:38)
[2022-01-10] MEDS: VENLAFAXINE HCL XR 75 MG CAPXR PO SCH (21:47)
[2022-01-10] MEDS: TAMSULOSIN HCL 0.4 MG CAP PO SCH (21:48)
[2022-01-11] MEDS: LEVOTHYROXINE SODIUM 125 MCG TABLET PO SCH (05:58)
[2022-01-11] MEDS: PIPERACILLIN/TAZOBACTAM 3.375 GM in DEXTROSE 5% 100 ML IV SCH ×2 (05:58→15:58)
--- NOTE | 2022-01-11 06:03 | Surgery Consultation ---
Date of Consultation January 11, 2022 Assessment & Plan (1) Adeline-rectal abscess: pt is a 76 year-old female who had CT scan -finding adeline-rectal abscess, IMP: base on Plt count low 32, Hgb 7.9 with BP 88/48, pt needs to transfusion one unit blood and 2 unit plt, idea plt count >50, possible do I/D perirectal abscess at bedside under local anesthesia, D/w benefits, risks and alternatives of the surgery, pt understood, other option continue iv antibiotic, re-exam in 1-2 days, if worse, need I/D , if pt feels better, may continue conservative treatment, pt also has UTI, History of Present Illness Reason for Consultation: adeline-rectal abscess Requesting Physician: Nury Dewey MD Attending Physician: Nury Dewey MD History of Present Illness CHIEF COMPLAINT: Weakness. HISTORY OF PRESENT ILLNESS: This is a 76-year-old female with past medical history significant for hypothyroidism, history of hypercholesterolemia, a fib, COPD, chronic rhinitis, thoracic aortic aneurysm, hypertension, history of stenosis of left subclavian artery, gastroparesis, GERD, chronic kidney disease stage III, history of melanoma in situ, history of T12 compression fracture, osteoporosis, history of cerebral infarction, history of postherpetic trigeminal neuralgia, iron deficiency anemia due to chronic blood loss, pancytopenia, history of DVT, status post IVC filter, depression, anxiety, TIA, history of recurrent follicular lymphoma, history of mucoepidermoid carcinoma of the low- grade, status post surgical excision of the lesion on the right superficial parotid region, who lives at her home alone, brother lives a couple of doors away, presents with weakness. The patient states she was able to go to bathroom on her own. Son and family was at home from [place] for a couple of days and they left in the evening. After that the patient was having difficulty getting up from the bed to the chair, she called her brother and was brought in here. Hemodynamically stable, has pancytopenia. Sodium of 129, potassium of 3.2, resting comfortably, hemodynamically stable. Denies any chest pain or headache. No blurred visions, no runny nose, no sore throat, no cough, no fevers. Appetite is down, not eating much. No difficulty swallowing. No shortness of breath, no nausea, no vomiting, no abdominal pain. She says she has some rectal pain from her hemorrhoids and sometimes she gets blood in the stools. Normal bladder movements. I ( Elan Valladares MD ) was asked for consult adeline-rectal abscess, I reviewed pt's H/P, labs, CT scan with pt, pt has been rectal pain for 2 days, pt denies fever, no rectal bleeding, no abdominal pain, ALLERGIES: No known drug allergies. PAST MEDICAL HISTORY: As mentioned above. PAST SURGICAL HISTORY: Bone marrow biopsy, colonoscopies, cystoscopy, EGDs, excisional biopsy of left inguinal lymph node, parotid gland removed, cataracts, total abdominal hysterectomy with removal of tubes, cholecystectomy. MEDICATIONS: The patient is on acyclovir 400 mg p.o. b.i.d., allopurinol 300 mg p.o. daily, amiodarone 200 mg p.o. daily, cefpodoxime 200 mg p.o. b.i.d., Cresemba 186 mg p.o. b.i.d., diclofenac sodium 4 g topical q.i.d. p.r.n., fluticasone and vilanterol one inhalation a.m. p.r.n., Flonase 2 sprays intrana margaret p.r.n., gabapentin 400 mg p.o. t.i.d., levothyroxine 125 mcg p.o. daily, metoprolol succinate 25 mg p.o. daily, Zofran 8 mg p.o. q. 8 hours p.r.n., Protonix 40 mg p.o. a.m., atorvastatin 20 mg p.o. daily, spironolactone 12.5 mg p.o. daily, Effexor 75 mg p.o. at bedtime. FAMILY HISTORY: Significant for maternal aunt has breast cancer; daughter has leukemia; father has lung cancer; mother has pancreatic cancer; brother has diabetes, hypertension; son has migraines; mother has pacemaker. SOCIAL HISTORY: , lives alone currently. No smoking, no alcohol, no drug use. REVIEW OF SYSTEMS: As per HPI. Rest of review of systems is negative. Allergies Allergy/AdvReac Type Severity Reaction Status Date / Time No Known Allergies Allergy Verified 01/04/22 11:01 Home Medications Medication Instructions Recorded Confirmed Type fluticasone propionate 50 2 spray INTRANASAL QAM 08/03/19 01/05/22 History mcg/actuation nasal spray,suspension (Flonase Allergy Relief) pantoprazole 40 mg tablet,delayed 40 mg PO QAM 08/03/19 01/05/22 History release (Protonix) venlafaxine 75 mg capsule,extended 75 mg PO HS 08/03/19 01/05/22 History release 24 hr (Effexor XR) diclofenac sodium 1 % topical gel 4 g TOPICAL QID PRN 10/21/19 01/05/22 History (Voltaren Arthritis Pain) fluticasone furoate 100 1 inh INHALATION QAM PRN 05/02/21 01/05/22 History mcg-vilanterol 25 mcg/dose inhalation powder (Breo Ellipta) acyclovir 400 mg tablet 400 mg PO BID 09/17/21 01/05/22 History spironolactone 25 mg tablet 12.5 mg PO DAILY 09/17/21 01/05/22 History (Aldactone) allopurinol 300 mg tablet 300 mg PO DAILY 12/30/21 01/05/22 History cefpodoxime 200 mg tablet 200 mg PO Q12 12/30/21 01/05/22 History isavuconazonium sulfate 186 mg 186 mg PO BID 12/30/21 01/05/22 History capsule (Cresemba) levothyroxine 125 mcg tablet 125 mcg PO DAILYBB 12/30/21 01/05/22 History ondansetron HCl 8 mg tablet 8 mg PO Q8H PRN 12/30/21 01/05/22 History gabapentin 400 mg capsule 400 mg PO TID 12/31/21 01/05/22 History amiodarone 200 mg tablet 200 mg PO DAILY 01/05/22 01/05/22 History metoprolol succinate 25 mg 25 mg PO DAILY 01/05/22 01/05/22 History tablet,extended release 24 hr rosuvastatin 20 mg tablet 20 mg PO DAILY 01/05/22 01/05/22 History venetoclax 100 mg tablet 100 mg PO DAILY 01/05/22 01/05/22 History (Venclexta) Patient History Medical History (Updated 01/11/22 @ 06:05 by Elan Valladares MD) Acute on chronic anemia AML (acute myeloblastic leukemia) Asthma Well controlled CKD (chronic kidney disease), stage III COPD (chronic obstructive pulmonary disease) Diverticulitis Hx Esophageal reflux Essential tremor Follicular lymphoma History of DVT (deep vein thrombosis) 2007 > in setting prolonged inactivity from hospital admission HLD (hyperlipidemia) HTN (hypertension) Hypothyroidism Palliative care encounter Pancreatitis Hx Post-herpetic trigeminal neuralgia Reason for gabapentin Thoracic aortic aneurysm without rupture Ascending thoracic aorta is ectatic up to 4.4 cm (Previously measured 4.1 cm in 2012. Slowly increasing in size) per 06/2020 CTA, under surveillance by Dr. Cohn Surgical History H/O parotidectomy (11/2003) H/O: hysterectomy History of bone marrow biopsy (10/2011) Jul 2021 History of cataract surgery bilat History of colonoscopy (02/16/19) History of cystoscopy (06/02/12) History of dilatation and curettage History of ERCP (06/21/08) History of esophagogastroduodenoscopy (EGD) (03/06/16) History of excision of lesion (04/02/21) Right Superficial Parotid S/P cholecystectomy S/P insertion of IVC (inferior vena caval) filter (06/26/12) 2011 > Jordon Filter Placement Right Groin Dr. Srivastava at [facility] Status post excisional biopsy (07/07/17) Left Inguinal Lymph Node Dr. Anderson at [facility] Status post fine needle aspiration (04/05/21) Left External Iliac Lymph Node under USG Dr. Coreas at [facility] Status post fine needle aspiration (02/08/19) Right Parotid Gland Lesion Family History Grandmother (Maternal) , Passed Age 52 due to Colon Cancer No problems noted. Father , Passed Age 72 due to Lung Cancer, occupation related No problems noted. Mother , Passed Age 84 of unknown cancer No problems noted. Brother , Passed Age 70 of unknown cancer No problems noted. Brother No problems noted. Daughter CLL (chronic lymphocytic leukemia) Son No problems noted. Son No problems noted. Son No problems noted. Aunt , Passed Age 70 due to Breast Cancer No problems noted. Other Cancer Hypertension Social History Smoking Status: Never smoker Second Hand Exposure: No; Do You Dip or Chew Tobacco: No; Tobacco Cessation Education Requested by Patient: No Hx Alcohol Use: No Hx Substance Use: No Preferred Language: Tajik Communication Ability: Effective Visual Impairment: Limited Hearing Ability: Normal Product Marketing Coordinator Required: No Beliefs That Will Affect Care: None marital status: / Current Living Situation: Alone Current Living Situation Comment: lives home alone needs either rehab or [place] [facility] current occupational status: retired 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 How many Children do You have: 4 Feels Safe at Home: Yes Safety Concerns: Feels Safe At This Time Childhood Exposure to Second-Hand Smoke: Yes (father smoked in home) caffeine: Yes (cola daily) during the past year weight has: remained stable Dental Care, Regularly: Yes Physical Activity Frequency: Does not Exercise Assistive Devices: Walker Physical Exam Constitutional: WD/WN, vitals as above no distress Eyes: PERRL, conjunctivae normal, anicteric sclerae Neck: trachea midline, no thyromegaly Cardiovascular: RRR, no murmur, no edema Gastrointestinal (Abdomen): soft, NT, Nd , BS +, rectal exam, nurse at bedside, mild tenderness at right buttock area, with redness, no drainage, external hemorrhoid, Neurologic: patellar DTR's 2+ bilat, sensation intact Psychiatric: A+Ox3, euthymic affect Results & Data ([facility]) Vital Signs (Past 12 Hours) Vital Signs Temp Pulse Resp BP BP Pulse Ox 01/10/22 22:58 36.5 C 54 L 20 84/47 L 88/48 L 97 01/10/22 18:34 38.4 C H 80 20 85/61 L 102/43 L 93 Laboratory Results Abnormal lab results 01/10/22 01/10/22 01/10/22 Range/Units 07:50 07:52 09:55 WBC 0.23 L* (4.8-10.8) K/uL RBC 2.56 L (4.2-5.4) M/uL Hgb 7.3 L (12.0-16.0) g/dL Hct 21.5 L (37-47) % Plt Count 10 L* (130-400) K/uL Absolute Nucleated RBC 0.05 H (0-0) K/uL Platelet Estimate (Normal) Fibrinogen (184-400) mg/dl Sodium 130 L (136-145) mmol/L Chloride 97 L (98-107) mmol/L BUN/Creatinine Ratio 26.0 H (10-20) Glucose 113 H (70-99(Fasting)) mg/dl POC Glucose (70-99) mg/dl Calcium 7.7 L (8.5-10.1) mg/dl Total Bilirubin (0.2-1.0) mg/dl AST (13-39) U/L ALT (7-52) U/L Alkaline Phosphatase (34-104) U/L Ur Specific Wever (1.000-1.030) Urine Protein (Negative) Urine Blood (Negative) Urine Nitrite (Negative) Urine Bilirubin (Negative) Ur Leukocyte Esterase (Negative) Urine RBC (Auto) (0-4) /hpf U Epithel Cells (Auto) (0-5) /lpf Urine Bacteria (Auto) (Negative) Crossmatch See Detail 01/10/22 01/10/22 01/10/22 Range/Units 14:41 14:57 14:57 WBC 0.80 L* (4.8-10.8) K/uL RBC 2.70 L (4.2-5.4) M/uL Hgb 7.9 L (12.0-16.0) g/dL Hct 23.4 L (37-47) % Plt Count 32 L D (130-400) K/uL Absolute Nucleated RBC (0-0) K/uL Platelet Estimate Decreased L (Normal) Fibrinogen (184-400) mg/dl Sodium 130 L (136-145) mmol/L Chloride 94 L (98-107) mmol/L BUN/Creatinine Ratio 25.0 H (10-20) Glucose 138 H (70-99(Fasting)) mg/dl POC Glucose 154 H (70-99) mg/dl Calcium 8.0 L (8.5-10.1) mg/dl Total Bilirubin 5.4 H (0.2-1.0) mg/dl AST 72 H (13-39) U/L ALT 76 H (7-52) U/L Alkaline Phosphatase 134 H (34-104) U/L Ur Specific Wever (1.000-1.030) Urine Protein (Negative) Urine Blood (Negative) Urine Nitrite (Negative) Urine Bilirubin (Negative) Ur Leukocyte Esterase (Negative) Urine RBC (Auto) (0-4) /hpf U Epithel Cells (Auto) (0-5) /lpf Urine Bacteria (Auto) (Negative) Crossmatch 01/10/22 01/10/22 01/10/22 Range/Units 14:57 20:55 21:00 WBC (4.8-10.8) K/uL RBC (4.2-5.4) M/uL Hgb (12.0-16.0) g/dL Hct (37-47) % Plt Count (130-400) K/uL Absolute Nucleated RBC (0-0) K/uL Platelet Estimate (Normal) Fibrinogen 477 H (184-400) mg/dl Sodium (136-145) mmol/L Chloride (98-107) mmol/L BUN/Creatinine Ratio (10-20) Glucose (70-99(Fasting)) mg/dl POC Glucose (70-99) mg/dl Calcium (8.5-10.1) mg/dl Total Bilirubin (0.2-1.0) mg/dl AST (13-39) U/L ALT (7-52) U/L Alkaline Phosphatase (34-104) U/L Ur Specific Wever > 1.045 H (1.000-1.030) Urine Protein Trace H (Negative) Urine Blood 2+ H 2+ H (Negative) Urine Nitrite Positive A (Negative) Urine Bilirubin 1+ H (Negative) Ur Leukocyte Esterase Trace H (Negative) Urine RBC (Auto) 5-10 H 5-10 H (0-4) /hpf U Epithel Cells (Auto) >30 H (0-5) /lpf Urine Bacteria (Auto) 4+ H (Negative) Crossmatch 01/10/22 Range/Units 21:11 WBC (4.8-10.8) K/uL RBC (4.2-5.4) M/uL Hgb (12.0-16.0) g/dL Hct (37-47) % Plt Count (130-400) K/uL Absolute Nucleated RBC (0-0) K/uL Platelet Estimate (Normal) Fibrinogen (184-400) mg/dl Sodium (136-145) mmol/L Chloride (98-107) mmol/L BUN/Creatinine Ratio (10-20) Glucose (70-99(Fasting)) mg/dl POC Glucose (70-99) mg/dl Calcium (8.5-10.1) mg/dl Total Bilirubin 2.5 H D (0.2-1.0) mg/dl AST (13-39) U/L ALT (7-52) U/L Alkaline Phosphatase (34-104) U/L Ur Specific Wever (1.000-1.030) Urine Protein (Negative) Urine Blood (Negative) Urine Nitrite (Negative) Urine Bilirubin (Negative) Ur Leukocyte Esterase (Negative) Urine RBC (Auto) (0-4) /hpf U Epithel Cells (Auto) (0-5) /lpf Urine Bacteria (Auto) (Negative) Crossmatch Diagnostic Findings CT OF THE ABDOMEN AND PELVIS WITH CONTRAST CLINICAL HISTORY: Sepsis, biliary source suspected. COMPARISON STUDY: CT of the abdomen and pelvis July 03, 2021. Renal ultrasound January 10, 2022. TECHNIQUE: Following IV administration of 93 mL of Optiray, axial images of the abdomen and pelvis were obtained from the lung bases to the proximal femurs. Images were reviewed in the axial, sagittal, and coronal planes. IV contrast was administered without complication. Automated exposure control was utilized for the study. A dose lowering technique was utilized adhering to the principles of ALARA. CT DOSE: 860.90 mGycm FINDINGS: Lung bases are unremarkable. This exam is mildly compromised by motion artifact. Mild biliary ductal dilatation is unchanged since CT of July 03, 2021 and likely related to cholecystectomy. There are no suspicious hepatic lesions. Focal fat along the falciform ligament is present. IVC filter is in place. The spleen, adrenal glands, left kidney and pancreas are unremarkable. Probable right renal cyst is present. There is no hydronephrosis. No peripancreatic infiltration. There is no evidence for a bowel obstruction. Sigmoid diverticulosis is noted without evidence for acute diverticulitis. Presacral stranding is present. Note is made of a rim-enhancing 2 x 1.8 cm posterior perirectal fluid collection consistent with an abscess. This abscess is along the posterior wall of the inferior rectum. There may be an associated fistula which extends to the medial fold of the right buttock. Pelvic collaterals are chronic. No additional fluid collections are present. There is no soft tissue gas. Old T12 compression deformity is unchanged. No acute fracture within visualized skeletal structures. IMPRESSION: 1. 2 x 1.8 cm rim-enhancing fluid collection along the posterior wall of the rectum with possible associated fistula which extends toward the medial fold of the right buttock. This is consistent with a perirectal abscess. 2. Presacral stranding which is nonspecific although could be treatment related. 3. No bowel obstruction. Colonic diverticulosis without evidence for acute diverticulitis. 4. No change in mild biliary ductal dilatation since CT of July 03, 2021. This is probably related to cholecystectomy.
[2022-01-11] MEDS: AMIODARONE 200 MG TAB PO SCH (08:21)
[2022-01-11] MEDS: POTASSIUM CHLORIDE CRTAB 20 MEQ TABCR PO SCH (08:21)
[2022-01-11] MEDS: PANTOprazole 40 MG TAB PO SCH (08:21)
[2022-01-11] MEDS: allopurinoL 300 MG TAB PO SCH (08:21)
[2022-01-11] MEDS: METOPROLOL SUCC 25MG EXT REL TAB PO SCH (08:22)
[2022-01-11] MEDS: DOCUSATE SODIUM/SENNA 50/8.6MG TAB PO SCH (08:22)
[2022-01-11] MEDS: FLUTICASONE PROPIONATE NA SPR 16 GM BTL SCH (08:23)
[2022-01-11] MEDS: FUROSEMIDE 40 MG/4 ML VIAL IV SCH ×2 (08:23→21:28)
[2022-01-11] MEDS: ROSUVASTATIN CALCIUM 20 MG TAB PO SCH (08:23)
[2022-01-11] MEDS: ACYCLOVIR 400 MG TAB PO SCH (08:24)
[2022-01-11] MEDS: GABAPENTIN 400 MG CAP PO SCH (08:24)
[2022-01-11 08:54] LABS: Platelet Count 23 K/uL (130-400)
[2022-01-11 09:05] LABS: Hematocrit (blood only) 19.2 % (37-47); Hemoglobin 6.6 g/dL (12.0-16.0); Mean Corpuscular Hemoglobin 29.3 pg (25-34); Mean Corpuscular Hgb Conc 34.4 g/dL (32-36); Mean Corpuscular Volume 85.3 fL (80-100); Mean Platelet Volume 9.2 fL (7.4-10.4); Platelet Estimate SIGNIFIC DECREASED (Normal); RDW Coefficient of Variation 14.4 % (11.5-14.5); RDW Standard Deviation 45.3 fL (36.4-46.3); Red Blood Count 2.25 M/uL (4.2-5.4); White Blood Count 0.37 K/uL (4.8-10.8)
[2022-01-11 09:09] LABS: Calcium 7.7 mg/dl (8.5-10.1); Creatinine Clr Calc Pharmacy 54.8 ml/min; Est GFR (African American) 66.1 ml/min; Magnesium 1.8 mg/dl (1.7-2.4); Potassium 3.7 mmol/L (3.5-5.1)
[2022-01-11 09:34] LABS: Platelet Count 20 K/uL (130-400)
[2022-01-11 09:35] LABS: Hematocrit (blood only) 19.5 % (37-47); Hemoglobin 6.6 g/dL (12.0-16.0); Mean Corpuscular Hemoglobin 29.1 pg (25-34); Mean Corpuscular Hgb Conc 33.8 g/dL (32-36); Mean Corpuscular Volume 85.9 fL (80-100); Mean Platelet Volume 9.4 fL (7.4-10.4); RDW Coefficient of Variation 14.5 % (11.5-14.5); RDW Standard Deviation 45.7 fL (36.4-46.3); Red Blood Count 2.27 M/uL (4.2-5.4); White Blood Count 0.31 K/uL (4.8-10.8)
[2022-01-11] MEDS ORDERED: diphenhydrAMINE Capsule 25 MG CAP PO ONE (10:40)
[2022-01-11] MEDS ORDERED: SODIUM CHLORIDE 0.9% 250 ML IV PRN (10:40)
[2022-01-11] MEDS ORDERED: diphenhydrAMINE 50 MG/ML VIAL IV PRN (10:41)
--- NOTE | 2022-01-11 10:52 | Hospitalist Progress Note ---
Date of Service January 11, 2022 Assessment & Plan (1) Generalized weakness: (2) Hyponatremia: Plan: Hyponatremia Serum Osm 265, Dana 652, Dana 69 On aldactone at home TSH is 4.4 Likely SIADH +/-med continue IV lasix, NSS held due to pulmonary edema (3) Paroxysmal atrial fibrillation with rapid ventricular response: Plan: -Currently in sinus rhythm, on Toprol 25mg daily and amiodarone -not on AC due to pancytopenia (4) Pancytopenia: Plan: Gets twice weekly labwork and weekly transfusion. Recently transfusion frequency has increased to twice a week s/p 1 uni pRBC 01/07 01/10- received 1 unit platelet (tolerated) and during 1 unit RBC transfusion she developed shaking rigors so transfusion was stopped, she received 25mg IV benadryl and zofran 4mg IV. Her blood was retyped and she does NOT have alloantibodies and transfusion reaction was non-hemolytic. 01/11-Hb down to 6.6 today. Will give 1 unit pRBC, premedicate with benadryl and acetaminophen. Discussed with Blood bank (5) Acute on chronic anemia: (6) Follicular lymphoma grade I: Plan: Has recurrent follicular lymphoma, AML Per pt, chemo recently stopped Has pancytopenia Hb is 7s since admission Per outpatient Onc notes, goal is to Keep Hb >/=8 Continue home acyclovir (patient's own med) Hold Vantin while she is on zosyn (7) Hypothyroidism: Plan: TSH 4.4 Continue synthroid (8) History of DVT (deep vein thrombosis): Plan: S/p IVC filter No anticoagulation in view of pancytopenia (9) Urinary retention: Plan: Bladder/Kidney US normal continue flomax (10) Pulmonary edema: Plan: Seen on CXR IVF discontinued Continue Lasix 40mg IV BID Doing well on 2L NC currently (11) Adeline-rectal abscess: Plan: Seen on CT Scan 01/10 Currently on zosyn. Monitor WBC while on zosyn, if drops further--> will need to switch to cefepime+flagyl Appreciate Surgery input After discussing with patient, we will try 1-2 days of IV antibiotics, will repeat CT A/P tomorrow to evaluate abscess size to see if she needs I/D. If I/D is needed, she will need transfusion to achieve Hb >8 and Platelet>50K. Secure message sent to Surgical team Plan: Disposition- Evaluated by OT and SNF recommended, but patient wants to return home. CM contacted to help coordinate with family and make arrangements. Admission and Anticipated Discharge Date Admission Date: January 06, 2022 Subjective Yesterday developed shaking rigors during her unit of RBC (she tolerated platelet well) Then later had a fever CT A/P shows perirectal abscess Physical Exam Physical Exam: Appears weak but no acute distress, non toxic Respiratory: crackles at bases, breathing comfortably on 2L NC Cardiovascular: regular rate and rhythm, no murmurs/rubs/gallops Gastrointestinal (Abdomen): soft, non tender Musculoskeletal: no edema Neurologic: awake, alert, spontaneously moving extremities Results & Data Results & Data ([facility]) Vital Signs (Past 12 Hours) Vital Signs Temp Pulse Pulse Resp BP BP Pulse Ox 01/11/22 08:06 36.7 C 60 17 90/50 L 99 01/11/22 04:05 62 16 92/50 L 113/58 L 98 01/10/22 22:58 36.5 C 54 L 20 84/47 L 88/48 L 97 Laboratory Results Short CBC 01/10/22 01/11/22 01/11/22 Range/Units 14:57 08:03 09:11 WBC 0.80 L* 0.37 L* 0.31 L* (4.8-10.8) K/uL Hgb 7.9 L 6.6 L* 6.6 L* (12.0-16.0) g/dL Hct 23.4 L 19.2 L* 19.5 L* (37-47) % Plt Count 32 L D 23 L* 20 L* (130-400) K/uL BMP 01/10/22 01/11/22 14:57 08:03 Sodium 130 L 131 L Potassium 3.9 3.7 Chloride 94 L 96 L Carbon Dioxide 26 28 BUN 22 24 H Creatinine 0.88 0.96 Glucose 138 H 114 H Calcium 8.0 L 7.7 L Liver Function 01/10/22 01/10/22 Range/Units 14:57 21:11 Total Bilirubin 5.4 H 2.5 H D (0.2-1.0) mg/dl AST 72 H (13-39) U/L ALT 76 H (7-52) U/L Alkaline Phosphatase 134 H (34-104) U/L Albumin 3.4 (3.4-5.0) gm/dl Urine 01/10/22 Range/Units 20:55 Urine Color Lewis Urine Appearance Clear (Clear) Urine pH 5.5 (4.5-7.5) Ur Specific West > 1.045 H (1.000-1.030) Urine Protein Trace H (Negative) Urine Glucose (UA) Negative (Negative) Medications Administered Current Inpatient Medications Acetaminophen (Acetaminophen 325 Mg Tab) 650 mg PO Q4H PRN PRN Reason: pain/fever Stop: 02/05/22 05:07 Last Admin: 01/10/22 17:40 Dose: 650 mg Documented by: Acyclovir (Acyclovir 400 Mg Tab) 400 mg PO BID AJAY Stop: 02/05/22 08:59 Last Admin: 01/11/22 08:24 Dose: 400 mg Documented by: Allopurinol (Allopurinol 300 Mg Tab) 300 mg PO DAILY [facility] Stop: 02/05/22 08:59 Last Admin: 01/11/22 08:21 Dose: 300 mg Documented by: Amiodarone HCl (Amiodarone 200 Mg Tab) 200 mg PO DAILY AJAY Stop: 02/05/22 08:59 Last Admin: 01/11/22 08:21 Dose: 200 mg Documented by: Diclofenac Sodium (Diclofenac Sod 1% Gel 100 Gm Tube) 4 gm EXT QID PRN PRN Reason: Pain Stop: 02/05/22 05:07 Diphenhydramine HCl (Diphenhydramine Capsule 25 Mg Cap) 25 mg PO PRE-TREAT ONE Stop: 01/11/22 18:40 Diphenhydramine HCl (Diphenhydramine 50 Mg/Ml Vial) 25 mg IV Q8 PRN PRN Reason: Allergy Symptoms Stop: 02/10/22 10:40 Fluticasone Propionate (Fluticasone Propionate Na Spr 16 Gm Btl) 2 sprays NA QAM AJAY Stop: 02/05/22 08:59 Last Admin: 01/11/22 08:23 Dose: 2 sprays Documented by: Fluticasone/Vilanterol (Fluticasone/Vilanterol 100/25mcg 14 Puffs/Inhaler) 1 puffs INH QAM PRN PRN Reason: Shortness Of Breath Or Wheezing Stop: 02/05/22 05:07 Last Admin: 01/08/22 08:38 Dose: 1 puffs Documented by: Furosemide (Furosemide 40 Mg/4 Ml Vial) 40 mg IV BID [facility] Stop: 02/08/22 20:59 Last Admin: 01/11/22 08:23 Dose: 40 mg Documented by: Gabapentin (Gabapentin 400 Mg Cap) 400 mg PO TID [facility] Stop: 02/05/22 08:59 Last Admin: 01/11/22 08:24 Dose: 400 mg Documented by: Heparin Sodium (Porcine) (Heparin 100 Unit/Ml 5ml Flush) 5 ml FLUSH PRN PRN PRN Reason: Flush Stop: 02/05/22 23:01 Piperacillin Sod/Tazobactam (Sod 3.375 gm/ Dextrose) 115 mls @ 28.75 mls/hr IV Q8H [facility]; Protocol Stop: 01/12/22 21:59 Last Infusion: 01/11/22 10:00 Dose: Infused Documented by: Sodium Chloride (Nss) 250 mls @ 15 mls/hr IV .[id number] PRN PRN Reason: For Transfusion Stop: 01/11/22 20:41 Levothyroxine Sodium (Levothyroxine Sodium 125 Mcg Tablet) 125 mcg PO DAILYBB [facility] Stop: 02/05/22 06:29 Last Admin: 01/11/22 05:58 Dose: 125 mcg Documented by: Metoprolol Succinate (Metoprolol Succ 25mg Ext Rel Tab) 25 mg PO DAILY [facility] Stop: 02/05/22 08:59 Last Admin: 01/11/22 08:22 Dose: Not Given Documented by: Miscellaneous Information (Piperacill/Tazobac Consult Active) 1 ea N/A UD PRN PRN Reason: Consult Stop: 02/09/22 16:00 Cefpodoxime 200mg Tab: Non Formulary Pt Own Med 1 ea PO Q12 AJAY Stop: 02/06/22 20:59 Last Admin: 01/10/22 09:00 Dose: 1 cap Documented by: Ondansetron HCl (Ondansetron Inj 2 Mg/Ml 2 Ml Vial) 4 mg IV Q6H PRN PRN Reason: Nausea Stop: 02/05/22 05:07 Last Admin: 01/10/22 14:30 Dose: 4 mg Documented by: Pantoprazole Sodium (Pantoprazole 40 Mg Tab) 40 mg PO QAM [facility] Stop: 02/05/22 08:59 Last Admin: 01/11/22 08:21 Dose: 40 mg Documented by: Phenylephrine HCl (Anusol Supp 1 Ea) 1 ea NC DAILY PRN PRN Reason: Hemorrhoids Stop: 02/05/22 11:10 Last Admin: 01/10/22 08:14 Dose: 1 ea Documented by: Polyethylene Glycol (Polyethylene (Miralax) 17 Gm Pack) 17 gm PO DAILY PRN PRN Reason: Constipation Stop: 02/05/22 05:07 Rosuvastatin Calcium (Rosuvastatin Calcium 20 Mg Tab) 20 mg PO DAILY [facility] Stop: 02/05/22 08:59 Last Admin: 01/11/22 08:23 Dose: 20 mg Documented by: Senna/Docusate Sodium (Docusate Sodium/Senna 50/8.6mg Tab) 1 tab PO QAM [facility] Stop: 02/05/22 10:14 Last Admin: 01/11/22 08:22 Dose: 1 tab Documented by: Tamsulosin HCl (Tamsulosin Hcl 0.4 Mg Cap) 0.4 mg PO [facility] Stop: 02/06/22 20:59 Last Admin: 01/10/22 21:48 Dose: 0.4 mg Documented by: Venlafaxine HCl (Venlafaxine Hcl Xr 75 Mg Capxr) 75 mg PO [facility] Stop: 02/05/22 20:59 Last Admin: 01/10/22 21:47 Dose: 75 mg Documented by: (1) Follicular lymphoma grade I Lymphoma site: unspecified region Qualified Code(s): C82.00 - Follicular lymphoma grade I, unspecified site
[2022-01-11] MEDS ORDERED: ACETAMINOPHEN 325 MG TAB PO ONE (10:54)
--- NOTE | 2022-01-11 11:21 | Nephrology Progress Note ---
Date of Service January 11, 2022 Assessment & Plan Admission and Anticipated Discharge Date Admission Date: January 06, 2022 Subjective Subjective S---feeling weak. had SOB and CXR showed Pulm edema. GENERAL: Elderly white female who appears to be weak and somewhat frail. She is not in any overt respiratory distress, but is very weak. Normal speech and was able to give a pretty detailed account of her medical history, following all commands. Normal speech. HEENT: Mucous membranes are moist. NECK: Supple. No jugular venous distention. CHEST: Bilaterally clear to auscultation. CARDIOVASCULAR: S1 and S2, regular. ABDOMEN: Soft, nontender. EXTREMITIES: Show no edema. SKIN: Shows no rashes. LABORATORY TESTS: Reviewed. Sodium 130+ today. normal bun and creat. ASSESSMENT AND PLAN: A 76-year-old female with a very extensive medical problem list including advanced lymphoma/leukemia, now admitted with weakness with no other localizing symptoms. I have been consulted for hyponatremia, which appears to be new onset. Hyponatremia: She has euvolemic hyponatremia with a very high urine osmolarity. This is a case of SIADH, which tends to be quite common in people with cancer. At this point, for inpatient, I will give her normal saline 500 mL, but also give Lasix 40 IV twice daily to lower the urine osmolarity. However, what we will do as an outpatient will depend on the input from the palliative medicine. It is worth noting that in lot of patients with advanced cancer, slightly low serum sodium is not uncommon and does not really cause any symptoms. I doubt the low sodium is the cause of the weakness, but it certainly adds to the problem. At this point, will do BMP once daily. Continue lasix 40 iv bid ( to lower urine osm and shehas Pulm edema. Stop ivf. FFR 1200 ml per day. severe Pancytopenia--defer to primary team. Transfusion dependent. Also now has Perirectal Abscess. Consider palliative med. Will sign off . Call if new issues. Results & Data ([facility]) Vital Signs (Past 12 Hours) Vital Signs Temp Pulse Pulse Resp BP BP Pulse Ox 01/11/22 10:53 36.5 C 62 14 96/56 L 95 01/11/22 08:06 36.7 C 60 17 90/50 L 99 01/11/22 04:05 62 16 92/50 L 113/58 L 98
[2022-01-11] MEDS: ACETAMINOPHEN 325 MG TAB PO PRN ×2 (15:59→21:26)
[2022-01-11] MEDS: TAMSULOSIN HCL 0.4 MG CAP PO SCH (21:28)
[2022-01-11] MEDS: CEFEPIME 2,000 MG in SYRINGE 0 ML IV SCH (21:29)
[2022-01-11] MEDS: metroNIDAZOLE 500 MG TAB PO SCH (21:29)
[2022-01-11] MEDS: HEPARIN 100 UNIT/ML 5ML FLUSH FLUSH PRN (21:33)
[2022-01-12] MEDS: ACETAMINOPHEN 325 MG TAB PO PRN ×2 (01:43→18:32)
[2022-01-12] MEDS: metroNIDAZOLE 500 MG TAB PO SCH ×3 (05:10→21:07)
--- NOTE | 2022-01-12 06:17 | Surgery Progress Note ---
Date of Service January 12, 2022 Assessment & Plan (1) Adeline-rectal abscess: Plan: Patient has been admitted on the hospitalist service: Patient is noted to have pancytopenia and has received transfusion of packed red blood cells as well as platelets A.m. labs are pending Concerning patient's perirectal abscess: Maintain patient on antibiotics in the form of Zosyn No surgical intervention planned for the present time due to pancytopenia we will monitor the patient's clinical progress with timing of surgery to be determined Admission and Anticipated Discharge Date Admission Date: January 06, 2022 Supervising Physician Co-Signing Physician Notes I personally saw and evaluated the patient with Carlos Faulkner PA-C and agree with the assessment and plan. 76-year-old female with pancytopenia and a small 2 cm perirectal abscess Continue IV antibiotics Labs are pending for this morning but no plans for drainage at this point We will continue to monitor the patient's progress on IV antibiotics, I&D still may be indicated if she worsens We will follow Subjective Patient denies any fevers, shakes, chills. She denies any nausea vomiting. She denies any worsening rectal pain. Physical Exam Gastrointestinal (Abdomen): Soft, nondistended, nontender Results & Data ([facility]) Vital Signs (Past 12 Hours) Vital Signs Temp Pulse Pulse Resp BP Pulse Ox 01/11/22 22:55 36.7 C 62 18 117/62 97 01/11/22 22:19 62 PG Care Time/CCT Total # of Minutes Spent Total Time Spent with Patient: Total time spent is greater than 50% in coordination of care (as documented) at patient's floor/unit and/or counseling patient: Coding Level of Care Code 56462 Subseq Hosp Care Lvl 1 Diagnoses Adeline-rectal abscess K61.1
[2022-01-12] MEDS: FUROSEMIDE 40 MG/4 ML VIAL IV SCH (08:40)
[2022-01-12] MEDS: DOCUSATE SODIUM/SENNA 50/8.6MG TAB PO SCH (08:40)
[2022-01-12] MEDS: HEPARIN 100 UNIT/ML 5ML FLUSH FLUSH PRN ×2 (09:19→21:08)
[2022-01-12 10:00] LABS: Hematocrit (blood only) 25.8 % (37-47); Hemoglobin 8.8 g/dL (12.0-16.0); Mean Corpuscular Hemoglobin 28.9 pg (25-34); Mean Corpuscular Hgb Conc 34.1 g/dL (32-36); Mean Corpuscular Volume 84.6 fL (80-100); Mean Platelet Volume 9.1 fL (7.4-10.4); Platelet Count 19 K/uL (130-400); RDW Coefficient of Variation 14.4 % (11.5-14.5); RDW Standard Deviation 45.1 fL (36.4-46.3); Red Blood Count 3.05 M/uL (4.2-5.4); White Blood Count 0.36 K/uL (4.8-10.8)
[2022-01-12] MEDS: CEFEPIME 2,000 MG in SYRINGE 0 ML IV SCH ×2 (11:08→21:07)
[2022-01-12 11:10] LABS: BUN Creatinine Ratio 22.6 (10-20); Calcium 7.9 mg/dl (8.5-10.1); Creatinine Clr Calc Pharmacy 56.5 ml/min; Est GFR (African American) 68.7 ml/min; Est GFR (Non-African American) 59.3 ml/min; Magnesium 1.8 mg/dl (1.7-2.4); Potassium 3.3 mmol/L (3.5-5.1)
[2022-01-12] MEDS ORDERED: POTASSIUM CHLORIDE CRTAB 20 MEQ TABCR PO STA (11:29)
[2022-01-12 11:47] LABS: Platelet Estimate SIGNIFIC DECREASED (Normal)
--- NOTE | 2022-01-12 11:49 | Hospitalist Progress Note ---
Date of Service January 12, 2022 Assessment & Plan (1) Generalized weakness: (2) Hyponatremia: Plan: Hyponatremia Serum Osm 265, Dana 652, Dana 69 On aldactone at home TSH is 4.4 Likely SIADH +/-med continue IV lasix--will reduce to lasix 40mg IV daily, NSS held due to pulmonary edema (3) Paroxysmal atrial fibrillation with rapid ventricular response: Plan: -Currently in sinus rhythm, on Toprol 25mg daily and amiodarone -not on AC due to pancytopenia (4) Pancytopenia: Plan: Gets twice weekly labwork and weekly transfusion. Recently transfusion frequency has increased to twice a week s/p 1 uni pRBC 01/07 01/10- received 1 unit platelet (tolerated) and during 1 unit RBC transfusion she developed shaking rigors so transfusion was stopped, she received 25mg IV benadryl and zofran 4mg IV. Her blood was retyped and she does NOT have alloantibodies and transfusion reaction was non-hemolytic. 01/11-Hb down to 6.6 today. Will give 1 unit pRBC, premedicate with benadryl and acetaminophen. Discussed with Blood bank 01/12- H/H and platelets remains stable. Does not need transfusion today (5) Acute on chronic anemia: (6) Follicular lymphoma grade I: Plan: Has recurrent follicular lymphoma, AML Per pt, chemo recently stopped Has pancytopenia, transfusion dependent Per outpatient Onc notes, goal is to Keep Hb >/=8 Continue home acyclovir (patient's own med) Hold Vantin while she is on IV antibiotics (7) Hypothyroidism: Plan: TSH 4.4 Continue synthroid (8) History of DVT (deep vein thrombosis): Plan: S/p IVC filter No anticoagulation in view of pancytopenia (9) Urinary retention: Plan: Bladder/Kidney US normal continue flomax (10) Pulmonary edema: Plan: Seen on CXR IVF discontinued Continue Lasix 40mg IV BID--> will reduce to lasix 40mg IV daily. Repeat CXR today Doing well on 2L NC currently (11) Adeline-rectal abscess: Plan: Seen on CT Scan 01/10 S/p zosyn but with worsening pancytopenia so discontinued. Started cefepime and Flagyl 01/11. Appreciate Surgery input Will repeat CT A/P with contrast tomorrow. If abscess is persistent, will transfuse Platelet (goal >50K) in anticipation of I/D on Friday Plan: Disposition- Evaluated by OT and SNF recommended, but patient wants to return home. CM contacted to help coordinate with family and make arrangements. Admission and Anticipated Discharge Date Admission Date: January 06, 2022 Subjective Patient reports rectal pain when passing gas No BM in several days but with poor oral intake Remains afebrile feels less short of breath Physical Exam Physical Exam: chronically ill appearing, generalized weakness but non toxic Respiratory: diminished at bases, but no wheezing/rhonchi Cardiovascular: regular rate and rhythm, no murmurs/rubs/gallops Gastrointestinal (Abdomen): soft,non distended Musculoskeletal: no edema Neurologic: awake, alert, spontaneously moving extremities Results & Data Results & Data ([facility]) Vital Signs (Past 12 Hours) Vital Signs Temp Pulse Pulse Resp BP Pulse Ox 01/12/22 11:23 63 01/12/22 07:16 36.7 C 64 18 136/72 98 Laboratory Results Short CBC 01/12/22 Range/Units 09:16 WBC 0.36 L* (4.8-10.8) K/uL Hgb 8.8 L (12.0-16.0) g/dL Hct 25.8 L (37-47) % Plt Count 19 L* (130-400) K/uL BMP 01/12/22 09:16 Sodium 131 L Potassium 3.3 L Chloride 94 L Carbon Dioxide 28 BUN 21 Creatinine 0.93 Glucose 140 H Calcium 7.9 L Medications Administered Current Inpatient Medications Acetaminophen (Acetaminophen 325 Mg Tab) 650 mg PO Q4H PRN PRN Reason: pain/fever Stop: 02/05/22 05:07 Last Admin: 01/12/22 01:43 Dose: 650 mg Documented by: Diphenhydramine HCl (Diphenhydramine 50 Mg/Ml Vial) 25 mg IV Q8 PRN PRN Reason: Allergy Symptoms Stop: 02/10/22 10:40 Furosemide (Furosemide 40 Mg/4 Ml Vial) 40 mg IV DAILY [facility]AY Stop: 02/12/22 08:59 Heparin Sodium (Porcine) (Heparin 100 Unit/Ml 5ml Flush) 5 ml FLUSH PRN PRN PRN Reason: Flush Stop: 02/05/22 23:01 Last Admin: 01/12/22 09:19 Dose: 5 ml Documented by: Cefepime HCl 2,000 mg/ Syringe 20 mls @ 5 mls/min IV Q12H [facility]; Protocol Stop: 01/21/22 21:59 Last Admin: 01/12/22 11:08 Dose: 5 mls/min Documented by: Metronidazole (Metronidazole 500 Mg Tab) 500 mg PO Q8 [facility] Stop: 01/21/22 21:59 Last Admin: 01/12/22 05:10 Dose: 500 mg Documented by: Cefpodoxime 200mg Tab: Non Formulary Pt Own Med 1 ea PO Q12 [facility] Stop: 02/06/22 20:59 Last Admin: 01/10/22 09:00 Dose: 1 cap Documented by: Ondansetron HCl (Ondansetron Inj 2 Mg/Ml 2 Ml Vial) 4 mg IV Q6H PRN PRN Reason: Nausea Stop: 02/05/22 05:07 Last Admin: 01/10/22 14:30 Dose: 4 mg Documented by: Polyethylene Glycol (Polyethylene (Miralax) 17 Gm Pack) 17 gm PO DAILY PRN PRN Reason: Constipation Stop: 02/05/22 05:07 Senna/Docusate Sodium (Docusate Sodium/Senna 50/8.6mg Tab) 1 tab PO QAM [facility] Stop: 02/05/22 10:14 Last Admin: 01/12/22 08:40 Dose: 1 tab Documented by: Tamsulosin HCl (Tamsulosin Hcl 0.4 Mg Cap) 0.4 mg PO HS [facility] Stop: 02/06/22 20:59 Last Admin: 01/11/22 21:28 Dose: 0.4 mg Documented by: (1) Follicular lymphoma grade I Lymphoma site: unspecified region Qualified Code(s): C82.00 - Follicular lymp risa grade I, unspecified site
--- NOTE | 2022-01-12 14:05 | XRay Report ---
XR chest 1V portable CLINICAL HISTORY: follow up pulmonary edema. COMPARISON STUDY: 01/10/2022 TECHNIQUE: 1 view of the chest FINDINGS: Single frontal view of the chest demonstrates the cardiomediastinal silhouette to be within normal li mits. Compared to previous examination, there has been resolution of pulmonary edema and interval dec rease in central vascular congestion. A Port-A-Cath is in place. There is no evidence for pleural eff usion. No confluent alveolar opacities are seen. There is no acute osseous pathology. IMPRESSION: 1. Interval resolution of pulmonary edema with mild residual central vascular congestion. ACT 112: Negative or not required by law. Electronically signed by: Jonathan Peguero M.D. 01/12/2022 2:04 PM
[2022-01-12] MEDS: GABAPENTIN 400 MG CAP PO SCH ×2 (15:04→21:06)
[2022-01-12] MEDS ORDERED: BACLOFEN 10 MG TAB PO PRN (18:38)
[2022-01-12] MEDS ORDERED: MoRPHine SULFATE 2 MG/ML CARP IV PRN (18:39)
[2022-01-12] MEDS: TAMSULOSIN HCL 0.4 MG CAP PO SCH (21:06)
[2022-01-13] MEDS: metroNIDAZOLE 500 MG TAB PO SCH ×3 (05:48→21:27)
--- NOTE | 2022-01-13 06:04 | Surgery Progress Note ---
Date of Service January 13, 2022 Assessment & Plan (1) Adeline-rectal abscess: Plan: Patient has been admitted on the hospitalist service: Patient noted to be pancytopenic and has required transfusion of 3 units of packed red blood cells and 1 unit of platelets thus far Labs this morning are pending Concerning patient's perirectal abscess: Maintain patient on antibiotics in the form of Zosyn Would ideally like to defer surgical invention until pancytopenia is improved Continue to monitor the patient clinically she does not appear to be septic at this time Admission and Anticipated Discharge Date Admission Date: January 06, 2022 Supervising Physician Co-Signing Physician Notes I personally saw and evaluated the patient with Carlos Faulkner PA-C and agree with the assessment and plan. 76-year-old female with pancytopenia and a small 2 cm perirectal abscess Continue IV antibiotics We will continue to monitor the patient's progress on IV antibiotics, I&D still may be indicated if she worsens We will follow Subjective Patient denies any fevers, shakes, chills. She continues to have on/off rectal pain that is similar to what was noted at time of admission but she notes that this is no worse. Results & Data ([facility]) Vital Signs (Past 12 Hours) Vital Signs Temp Pulse Pulse Pulse Resp BP Pulse Ox 01/13/22 03:02 36.4 C L 60 18 145/63 H 98 01/12/22 22:59 36.5 C 61 18 151/68 H 98 01/12/22 22:18 58 L 01/12/22 18:45 36.7 C 67 18 135/71 98 PG Care Time/CCT Total # of Minutes Spent Total Time Spent with Patient: Total time spent is greater than 50% in coordination of care (as documented) at patient's floor/unit and/or counseling patient: Coding Level of Care Code 52809 Subseq Hosp Care Lvl 1 Diagnoses Adeline-rectal abscess K61.1
[2022-01-13] MEDS: HEPARIN 100 UNIT/ML 5ML FLUSH FLUSH PRN ×2 (07:19→08:24)
[2022-01-13 07:50] LABS: Albumin Globulin Ratio 1.2 (0.9-2); BUN Creatinine Ratio 23.7 (10-20); Bilirubin,Total 0.9 mg/dl (0.2-1.0); Calcium 8.2 mg/dl (8.5-10.1); Creatinine Clr Calc Pharmacy 67.6 ml/min; Est GFR (African American) 87.7 ml/min; Est GFR (Non-African American) 75.7 ml/min; Globulin 2.5 gm/dl (2.5-4.0); Magnesium 2.1 mg/dl (1.7-2.4); Potassium 3.9 mmol/L (3.5-5.1); Total Protein 5.5 gm/dl (6.0-8.3)
[2022-01-13 08:03] LABS: Hematocrit (blood only) 26.7 % (37-47); Mean Corpuscular Hemoglobin 28.8 pg (25-34); Mean Corpuscular Hgb Conc 33.7 g/dL (32-36); Mean Corpuscular Volume 85.3 fL (80-100); Platelet Count 16 K/uL (130-400); RDW Coefficient of Variation 14.2 % (11.5-14.5); RDW Standard Deviation 44.2 fL (36.4-46.3); Red Blood Count 3.13 M/uL (4.2-5.4); White Blood Count 0.47 K/uL (4.8-10.8)
[2022-01-13] MEDS: GABAPENTIN 400 MG CAP PO SCH ×3 (08:20→20:02)
[2022-01-13] MEDS: DOCUSATE SODIUM/SENNA 50/8.6MG TAB PO SCH (08:21)
[2022-01-13] MEDS ORDERED: FUROSEMIDE 40 MG/4 ML VIAL IV SCH (09:00)
--- NOTE | 2022-01-13 10:29 | Hospitalist Progress Note ---
Date of Service January 13, 2022 Assessment & Plan (1) Generalized weakness: (2) Hyponatremia: Plan: Hyponatremia Serum Osm 265, Dana 652, Dana 69 On aldactone at home TSH is 4.4 Likely SIADH +/-med -García has improved -Will hold further doses of IV lasix (3) Paroxysmal atrial fibrillation with rapid ventricular response: Plan: -Currently in sinus rhythm, on Toprol 25mg daily and amiodarone -not on AC due to pancytopenia (4) Pancytopenia: Plan: Gets twice weekly labwork and weekly transfusion. Recently transfusion frequency has increased to twice a week s/p 1 uni pRBC 01/07 01/10- received 1 unit platelet (tolerated) and during 1 unit RBC transfusion she developed shaking rigors so transfusion was stopped, she received 25mg IV benadryl and zofran 4mg IV. Her blood was retyped and she does NOT have alloantibodies and transfusion reaction was non-hemolytic. 01/11-Hb down to 6.6 today. Will give 1 unit pRBC, premedicate with benadryl and acetaminophen. Discussed with Blood bank 01/12- H/H and platelets remains stable. Does not need transfusion today (5) Acute on chronic anemia: (6) Follicular lymphoma grade I: Plan: Has recurrent follicular lymphoma, AML Per pt, chemo recently stopped Has pancytopenia, transfusion dependent Per outpatient Onc notes, goal is to Keep Hb >/=8 Continue home acyclovir (patient's own med) Hold Vantin while she is on IV antibiotics (7) Hypothyroidism: Plan: TSH 4.4 Continue synthroid (8) History of DVT (deep vein thrombosis): Plan: S/p IVC filter No anticoagulation in view of pancytopenia (9) Urinary retention: Plan: Bladder/Kidney US normal continue flomax (10) Pulmonary edema: Plan: Seen on CXR IVF discontinued Continue Lasix 40mg IV BID--> will reduce to lasix 40mg IV daily. Repeat CXR 01/12--resolved pulmonary edema 99% on 1L NC. Will discontinue oxygen all together (11) Adeline-rectal abscess: Plan: Seen on CT Scan 01/10 S/p zosyn but with worsening pancytopenia so discontinued. Started cefepime and Flagyl 01/11. Appreciate Surgery input Will repeat CT A/P with PO and IV contrast today. If abscess is persistent, will transfuse Platelet (goal >50K) in anticipation of I/D on Friday Plan: Disposition- Evaluated by OT and SNF recommended, but patient wants to return home. CM contacted to help coordinate with family and make arrangements. Admission and Anticipated Discharge Date Admission Date: January 06, 2022 Subjective 2 BM this morning Remains afebrile Denies shortness of breath "I don't know why I still have oxygen on" Pain is controlled Physical Exam Physical Exam: No acute distress, non toxic Respiratory: Breathing comfortably on 1L NC, no wheezing/rhonchi/rales Cardiovascular: regular rate and rhythm, +systolic murmur Gastrointestinal (Abdomen): soft, non tender Musculoskeletal: No edema Neurologic: awake, alert, spontaneously moving extremities Results & Data Results & Data ([facility]) Vital Signs (Past 12 Hours) Vital Signs Temp Pulse Pulse Resp BP Pulse Ox 01/13/22 07:22 36.6 C 68 18 158/73 H 99 01/13/22 07:02 64 01/13/22 03:02 36.4 C L 60 18 145/63 H 98 01/12/22 22:59 36.5 C 61 18 151/68 H 98 Laboratory Results Short CBC 01/13/22 Range/Units 07:09 WBC 0.47 L* (4.8-10.8) K/uL Hgb 9.0 L (12.0-16.0) g/dL Hct 26.7 L (37-47) % Plt Count 16 L* (130-400) K/uL BMP 01/12/22 01/13/22 09:16 07:09 Sodium 131 L 132 L Potassium 3.3 L 3.9 Chloride 94 L 96 L Carbon Dioxide 28 29 BUN 21 18 Creatinine 0.93 0.76 Glucose 140 H 100 H Calcium 7.9 L 8.2 L Liver Function 01/13/22 Range/Units 07:09 Total Bilirubin 0.9 (0.2-1.0) mg/dl AST 17 (13-39) U/L ALT 37 (7-52) U/L Alkaline Phosphatase 119 H (34-104) U/L Albumin 3.0 L (3.4-5.0) gm/dl Medications Administered Current Inpatient Medications Acetaminophen (Acetaminophen 325 Mg Tab) 650 mg PO Q4H PRN PRN Reason: pain/fever Stop: 04/19/22 05:07 Last Admin: 01/12/22 18:32 Dose: 650 mg Documented by: Baclofen (Baclofen 10 Mg Tab) 10 mg PO TID PRN PRN Reason: Muscle Spasm Stop: 02/11/22 20:59 Diphenhydramine HCl (Diphenhydramine 50 Mg/Ml Vial) 25 mg IV Q8 PRN PRN Reason: Allergy Symptoms Stop: 02/10/22 10:40 Furosemide (Furosemide 40 Mg/4 Ml Vial) 40 mg IV DAILY [facility] Stop: 02/12/22 08:59 Last Admin: 01/13/22 08:21 Dose: 40 mg Documented by: Gabapentin (Gabapentin 400 Mg Cap) 400 mg PO TID [facility] Stop: 02/11/22 13:59 Last Admin: 01/13/22 08:20 Dose: 400 mg Documented by: Heparin Sodium (Porcine) (Heparin 100 Unit/Ml 5ml Flush) 5 ml FLUSH PRN PRN PRN Reason: Flush Stop: 02/05/22 23:01 Last Admin: 01/13/22 08:24 Dose: 5 ml Documented by: Cefepime HCl 2,000 mg/ Syringe 20 mls @ 5 mls/min IV Q12H [facility]; Protocol Stop: 01/21/22 21:59 Last Admin: 01/12/22 21:07 Dose: 5 mls/min Documented by: Metronidazole (Metronidazole 500 Mg Tab) 500 mg PO Q8 [facility] Stop: 01/21/22 21:59 Last Admin: 01/13/22 05:48 Dose: 500 mg Documented by: Morphine Sulfate (Morphine Sulfate 2 Mg/Ml Carp) 2 mg IV Q6 PRN PRN Reason: Pain Stop: 01/26/22 18:38 Cefpodoxime 200mg Tab: Non Formulary Pt Own Med 1 ea PO Q12 [facility] Stop: 02/06/22 20:59 Last Admin: 01/10/22 09:00 Dose: 1 cap Documented by: Ondansetron HCl (Ondansetron Inj 2 Mg/Ml 2 Ml Vial) 4 mg IV Q6H PRN PRN Reason: Nausea Stop: 02/05/22 05:07 Last Admin: 01/10/22 14:30 Dose: 4 mg Documented by: Oxycodone HCl (Oxycodone Hcl Ir 5 Mg Tab (Immediate Release)) 5 mg PO Q6 PRN PRN Reason: Pain Stop: 01/26/22 18:37 Polyethylene Glycol (Polyethylene (Miralax) 17 Gm Pack) 17 gm PO DAILY PRN PRN Reason: Constipation Stop: 02/05/22 05:07 Senna/Docusate Sodium (Docusate Sodium/Senna 50/8.6mg Tab) 1 tab PO QAM [facility] Stop: 02/05/22 10:14 Last Admin: 01/13/22 08:21 Dose: 1 tab Documented by: Tamsulosin HCl (Tamsulosin Hcl 0.4 Mg Cap) 0.4 mg PO HS [facility] Stop: 02/06/22 20:59 Last Admin: 01/12/22 21:06 Dose: 0.4 mg Documented by: (1) Follicular lymphoma grade I Lymphoma site: unspecified region Qualified Code(s): C82.00 - Follicular lymphoma grade I, unspecified site
[2022-01-13] MEDS: CEFEPIME 2,000 MG in SYRINGE 0 ML IV SCH ×2 (10:33→18:11)
[2022-01-13] MEDS ORDERED: OPTIRAY 320 100ml IV ONE (12:00)
--- NOTE | 2022-01-13 12:27 | CT Scan Report ---
CT abd pelvis oral and IV con CLINICAL HISTORY: perirectal abscess re-eval TECHNIQUE: Helical axial images of the abdomen and pelvis were obtained and displayed. Automated dose lowering techniques and/or adjustment according to patient size were utilized for this exam. This e xam was performed with intravenous contrast. COMPARISON: Comparison is made to CT abdomen pelvis 01/10/2022 FINDINGS: Lower chest: Biatrial enlargement is seen. Liver: Unremarkable. No focal lesions are seen. Gallbladder and biliary tree: Patient is status post cholecystectomy. Physiologic prominence of the b iliary ducts is noted. Pneumobilia is noted. Pancreas: Unremarkable, no focal lesions. Spleen: Unremarkable. Adrenals: Unremarkable. Kidneys and ureters: 1 cm cyst is seen on the right. Bladder: Unremarkable. Reproductive organs: Unremarkable. Bowel: Diverticulosis is seen without evidence of diverticulitis. Interval stability of perirectal ab scess measuring 19 x 20 mm with associated perirectal stranding. Lymph nodes Retroperitoneal: Unremarkable. Mesenteric: Unremarkable. Pelvic: Unremarkable. Peritoneum: Normal. Vessels: Atherosclerotic calcifications are seen. IVC filter seen. Abdominal wall: Unremarkable. Bones: Vertebral plana of T12 is again seen. Pars defect is seen at L5-S1 bilaterally with grade 1 an terolisthesis. IMPRESSION: 1. Stable appearance of perirectal abscess with associated perirectal stranding. Additional findings as above. 2. Physiologic bile duct dilation and pneumobilia which is likely related to cholecystectomy. ACT 112: Negative or not required by law. Electronically signed by: Magno Erickson M.D. 01/13/2022 12:25 PM
[2022-01-13] MEDS: oxyCODONE HCL IR 5 MG TAB (IMMEDIATE RELEASE) PO PRN (15:51)
[2022-01-13] MEDS ORDERED: SODIUM CHLORIDE 0.9% 250 ML IV PRN (19:31)
[2022-01-13] MEDS ORDERED: ACETAMINOPHEN 325 MG TAB PO ONE (19:31)
[2022-01-13] MEDS ORDERED: diphenhydrAMINE Capsule 25 MG CAP PO ONE (19:33)
[2022-01-13] MEDS ORDERED: FUROSEMIDE 40 MG/4 ML VIAL IV ONE ×2 (19:34→23:09)
[2022-01-13] MEDS: TAMSULOSIN HCL 0.4 MG CAP PO SCH (20:03)
[2022-01-14] MEDS: CEFEPIME 2,000 MG in SYRINGE 0 ML IV SCH ×3 (01:33→21:48)
[2022-01-14] MEDS: HEPARIN 100 UNIT/ML 5ML FLUSH FLUSH PRN ×2 (01:34→07:23)
[2022-01-14] MEDS: metroNIDAZOLE 500 MG TAB PO SCH ×3 (05:21→21:48)
[2022-01-14] MEDS: oxyCODONE HCL IR 5 MG TAB (IMMEDIATE RELEASE) PO PRN ×2 (07:29→16:46)
[2022-01-14] MEDS: GABAPENTIN 400 MG CAP PO SCH ×3 (07:29→20:27)
[2022-01-14] MEDS: DOCUSATE SODIUM/SENNA 50/8.6MG TAB PO SCH (07:30)
[2022-01-14 07:59] LABS: Hematocrit (blood only) 25.9 % (37-47); Hemoglobin 8.7 g/dL (12.0-16.0); Mean Corpuscular Hemoglobin 28.6 pg (25-34); Mean Corpuscular Hgb Conc 33.6 g/dL (32-36); Mean Corpuscular Volume 85.2 fL (80-100); Mean Platelet Volume 9.8 fL (7.4-10.4); Platelet Count 53 K/uL (130-400); RDW Standard Deviation 43.9 fL (36.4-46.3); Red Blood Count 3.04 M/uL (4.2-5.4); White Blood Count 0.49 K/uL (4.8-10.8)
[2022-01-14 08:09] LABS: INR 1.1 (0.9-1.1); Prothrombin Time 11.9 Seconds (9.0-12.0)
[2022-01-14 08:17] LABS: BUN Creatinine Ratio 19.1 (10-20); Calcium 8.1 mg/dl (8.5-10.1); Creatinine Clr Calc Pharmacy 53.6 ml/min; Est GFR (African American) 67.8 ml/min; Est GFR (Non-African American) 58.5 ml/min; Potassium 3.3 mmol/L (3.5-5.1)
[2022-01-14] MEDS: ACETAMINOPHEN 325 MG TAB PO PRN ×2 (12:32→20:27)
--- NOTE | 2022-01-14 14:20 | Hospitalist Progress Note ---
Date of Service January 14, 2022 Assessment & Plan (1) Generalized weakness: (2) Hyponatremia: Plan: Hyponatremia Serum Osm 265, Dana 652, Dana 69 On aldactone at home TSH is 4.4 Likely SIADH +/-med -García has improved -Can give additional IV lasix PRN (3) Paroxysmal atrial fibrillation with rapid ventricular response: Plan: -Currently in sinus rhythm, on Toprol 25mg daily and amiodarone -not on AC due to pancytopenia (4) Pancytopenia: Plan: Gets twice weekly labwork and weekly transfusion. Recently transfusion frequency has increased to twice a week s/p 1 uni pRBC 01/07 01/10- received 1 unit platelet (tolerated) and during 1 unit RBC transfusion she developed shaking rigors so transfusion was stopped, she received 25mg IV benadryl and zofran 4mg IV. Her blood was retyped and she does NOT have alloantibodies and transfusion reaction was non-hemolytic. 01/11-Hb down to 6.6 today. Will give 1 unit pRBC, premedicate with benadryl and acetaminophen. Discussed with Blood bank 01/12- H/H and platelets remains stable. Does not need transfusion today 01/13- received 2 units platelets in anticipation of bedside I/D the following day (5) Acute on chronic anemia: (6) Follicular lymphoma grade I: Plan: Has recurrent follicular lymphoma, AML Per pt, chemo recently stopped Has pancytopenia, transfusion dependent Per outpatient Onc notes, goal is to Keep Hb >/=8 Continue home acyclovir (patient's own med) Hold Vantin while she is on IV antibiotics Per daughter's request, I notified Dr Saucedo that patient is in the hospital. (7) Hypothyroidism: Plan: TSH 4.4 Continue synthroid (8) History of DVT (deep vein thrombosis): Plan: S/p IVC filter No anticoagulation in view of pancytopenia (9) Urinary retention: Plan: Bladder/Kidney US normal continue flomax (10) Pulmonary edema: Plan: Seen on CXR IVF discontinued Continue Lasix 40mg IV BID--> will reduce to lasix 40mg IV daily. Repeat CXR 01/12--resolved pulmonary edema 99% on 1L NC. Will discontinue oxygen all together (11) Adeline-rectal abscess: Plan: Seen on CT Scan 01/10 S/p zosyn but with worsening pancytopenia so discontinued. Started cefepime and Flagyl 01/11. Appreciate Surgery input Repeat CT A/P with PO and IV contrast showed stable abscess. Plan for bedside I/D today with surgery Plan: Disposition- Evaluated by OT and SNF recommended, but patient wants to return home. CM contacted to help coordinate with family and make arrangements. Admission and Anticipated Discharge Date Admission Date: January 06, 2022 Subjective Received 2 units platelets yesterday Remains afebrile Less abdominal/rectal cramping after she had her BM several days ago She is still adamant about returning home eventually rather than SNF. Her daughter is coming in [facility] today Physical Exam Physical Exam: Pleasant, comfortable, no acute distress Respiratory: Breathing comfortably on room air, no wheezing/rhonchi/rales Cardiovascular: Regular rate and rhythm, no murmurs/rubs/gallops Gastrointestinal (Abdomen): Soft, non tender, non distended Musculoskeletal: No edema Neurologic: Awake, alert, generalized weakness Results & Data Results & Data ([facility]) Vital Signs (Past 12 Hours) Vital Signs Temp Pulse Pulse Resp BP BP Pulse Ox 01/14/22 11:14 36.6 C 69 18 130/71 97 01/14/22 07:35 62 01/14/22 07:11 36.6 C 66 18 129/71 96 01/14/22 03:28 36.5 C 60 16 101/65 94 01/14/22 02:45 36.7 C 65 18 119/70 97 Laboratory Results Short CBC 01/14/22 Range/Units 07:12 WBC 0.49 L* (4.8-10.8) K/uL Hgb 8.7 L (12.0-16.0) g/dL Hct 25.9 L (37-47) % Plt Count 53 L D (130-400) K/uL BMP 01/14/22 07:12 Sodium 133 L Potassium 3.3 L Chloride 93 L Carbon Dioxide 32 BUN 18 Creatinine 0.94 Glucose 107 H Calcium 8.1 L Medications Administered Current Inpatient Medications Acetaminophen (Acetaminophen 325 Mg Tab) 650 mg PO Q4H PRN PRN Reason: pain/fever Stop: 02/05/22 05:07 Last Admin: 01/14/22 12:32 Dose: 650 mg Documented by: Baclofen (Baclofen 10 Mg Tab) 10 mg PO TID PRN PRN Reason: Muscle Spasm Stop: 02/11/22 20:59 Diphenhydramine HCl (Diphenhydramine 50 Mg/Ml Vial) 25 mg IV Q8 PRN PRN Reason: Allergy Symptoms Stop: 02/10/22 10:40 Furosemide (Furosemide 40 Mg/4 Ml Vial) 40 mg IV DAILY AJAY Stop: 02/12/22 08:59 Last Admin: 01/13/22 08:21 Dose: 40 mg Documented by: Gabapentin (Gabapentin 400 Mg Cap) 400 mg PO TID AJAY Stop: 02/11/22 13:59 Last Admin: 01/14/22 13:15 Dose: 400 mg Documented by: Heparin Sodium (Porcine) (Heparin 100 Unit/Ml 5ml Flush) 5 ml FLUSH PRN PRN PRN Reason: Flush Stop: 02/05/22 23:01 Last Admin: 01/14/22 07:23 Dose: 5 ml Documented by: Cefepime HCl 2,000 mg/ Syringe 20 mls @ 5 mls/min IV Q12 [facility]; Protocol Stop: 01/21/22 21:59 Metronidazole (Metronidazole 500 Mg Tab) 500 mg PO Q8 [facility] Stop: 01/21/22 21:59 Last Admin: 01/14/22 13:15 Dose: 500 mg Documented by: Morphine Sulfate (Morphine Sulfate 2 Mg/Ml Carp) 2 mg IV Q6 PRN PRN Reason: Pain Stop: 01/26/22 18:38 Cefpodoxime 200mg Tab: Non Formulary Pt Own Med 1 ea PO Q12 [facility] Stop: 02/06/22 20:59 Last Admin: 01/10/22 09:00 Dose: 1 cap Documented by: Ondansetron HCl (Ondansetron Inj 2 Mg/Ml 2 Ml Vial) 4 mg IV Q6H PRN PRN Reason: Nausea Stop: 02/05/22 05:07 Last Admin: 01/10/22 14:30 Dose: 4 mg Documented by: Oxycodone HCl (Oxycodone Hcl Ir 5 Mg Tab (Immediate Release)) 5 mg PO Q6 PRN PRN Reason: Pain Stop: 01/26/22 18:37 Last Admin: 01/14/22 07:29 Dose: 5 mg Documented by: Polyethylene Glycol (Polyethylene (Miralax) 17 Gm Pack) 17 gm PO DAILY PRN PRN Reason: Constipation Stop: 02/05/22 05:07 Senna/Docusate Sodium (Docusate Sodium/Senna 50/8.6mg Tab) 1 tab PO QAM [facility] Stop: 02/05/22 10:14 Last Admin: 01/14/22 07:30 Dose: 1 tab Documented by: Tamsulosin HCl (Tamsulosin Hcl 0.4 Mg Cap) 0.4 mg PO HS [facility] Stop: 02/06/22 20:59 Last Admin: 01/13/22 20:03 Dose: 0.4 mg Documented by: (1) Follicular lymphoma grade I Lymphoma site: unspecified region Qualified Code(s): C82.00 - Follicular lymphoma grade I, unspecified site
[2022-01-14] MEDS ORDERED: POTASSIUM CHLORIDE CRTAB 20 MEQ TABCR PO STA (14:24)
--- NOTE | 2022-01-14 16:53 | Surgery Progress Note ---
Date of Service January 14, 2022 Assessment & Plan (1) Juan-rectal abscess: Plan: pt is a 76 year-old female who had CT scan -finding juan-rectal abscess, IMP: base on Plt count low 32, Hgb 7.9 with BP 88/48, pt needs to transfusion one unit blood and 2 unit plt, idea plt count >50, possible do I/D perirectal abscess at bedside under local anesthesia, D/w benefits, risks and alternatives of the surgery, pt understood, other option continue iv antibiotic, re-exam in 1-2 days, if worse, need I/D , if pt feels better, may continue conservative treatment, pt also has UTI, 01/14/2022 4:50PM, DR. Valladares F/Sania perirectal abscess, pt is doing better, perirectal abscess resolved, may stop IV antibiotic, change po bactrim tomorrow, for 10 days, will F/U, Admission and Anticipated Discharge Date Admission Date: January 06, 2022 Supervising Physician Co-Signing Physician Notes I personally saw and evaluated the patient with Carlos Faulkner PA-C and agree with the assessment and plan. 76-year-old female with pancytopenia and a small 2 cm perirectal abscess Continue IV antibiotics We will continue to monitor the patient's progress on IV antibiotics, I&D still may be indicated if she worsens We will follow Subjective Received 2 units platelets yesterday Remains afebrile Less abdominal/rectal cramping after she had her BM several days ago She is still adamant about returning home eventually rather than SNF. Her daughter is coming in from [place] today 01/14/2022 4:48PM, Dr. Valladares F/U perirectal abscess, pt is doing better, no rectal pain, no fever, Physical Exam Constitutional: WD/WN, vitals as above Eyes: PERRL, conjunctivae normal, anicteric sclerae Neck: trachea midline, no thyromegaly Cardiovascular: RRR, no murmur, no edema Gastrointestinal (Abdomen): soft, NT, ND, rectal exam: no tenderness and redness at rectal area, no palpable mass on rectal area, Neurologic: patellar DTR's 2+ bilat, sensation intact Psychiatric: A+Ox3, euthymic affect Results & Data ([facility]) Vital Signs (Past 12 Hours) Vital Signs Temp Pulse Pulse Resp BP Pulse Ox 03/28/22 14:55 73 01/14/22 14:50 36.6 C 65 20 116/66 95 01/14/22 11:14 36.6 C 69 18 130/71 97 01/14/22 07:35 62 01/14/22 07:11 36.6 C 66 18 129/71 96 Laboratory Results Abnormal lab results 01/10/22 01/14/22 01/14/22 Range/Units 09:55 07:12 07:12 WBC 0.49 L* (4.8-10.8) K/uL RBC 3.04 L (4.2-5.4) M/uL Hgb 8.7 L (12.0-16.0) g/dL Hct 25.9 L (37-47) % Plt Count 53 L D (130-400) K/uL Sodium 133 L (136-145) mmol/L Potassium 3.3 L (3.5-5.1) mmol/L Chloride 93 L (98-107) mmol/L Glucose 107 H (70-99(Fasting)) mg/dl Calcium 8.1 L (8.5-10.1) mg/dl Crossmatch See Detail
[2022-01-14] MEDS: TAMSULOSIN HCL 0.4 MG CAP PO SCH (20:27)
[2022-01-15] MEDS: oxyCODONE HCL IR 5 MG TAB (IMMEDIATE RELEASE) PO PRN (01:32)
[2022-01-15] MEDS: metroNIDAZOLE 500 MG TAB PO SCH ×2 (06:07→14:35)
[2022-01-15] MEDS: ACETAMINOPHEN 325 MG TAB PO PRN ×2 (06:08→11:27)
[2022-01-15 06:27] LABS: Calcium 8.2 mg/dl (8.5-10.1); Creatinine Clr Calc Pharmacy 67.4 ml/min; Est GFR (African American) 89.1 ml/min; Est GFR (Non-African American) 76.9 ml/min; Magnesium 2.3 mg/dl (1.7-2.4)
[2022-01-15 06:56] LABS: Hematocrit (blood only) 24.8 % (37-47); Hemoglobin 8.4 g/dL (12.0-16.0); Mean Corpuscular Hemoglobin 28.9 pg (25-34); Mean Corpuscular Hgb Conc 33.9 g/dL (32-36); Mean Corpuscular Volume 85.2 fL (80-100); Mean Platelet Volume 8.8 fL (7.4-10.4); Platelet Count 35 K/uL (130-400); RDW Standard Deviation 43.8 fL (36.4-46.3); Red Blood Count 2.91 M/uL (4.2-5.4); White Blood Count 0.52 K/uL (4.8-10.8)
[2022-01-15 07:42] LABS: Giant Platelets 1+; Platelet Estimate Decreased (Normal); Toxic Granulation 1+; Toxic Vacuolation 1+
[2022-01-15 07:50] LABS: ALC (manual) 0.25 K/uL (1.2-3.4); ANC (manual) 0.21 K/uL (1.4-6.5); Basophils % (manual) 0.9 %; Eosinophils % (manual) 0.4 %; Lymphocytes # (manual) 0.25 K/uL (1.2-3.4); Lymphocytes % (manual) 48.9 %; Monocytes # (manual) 0.05 K/uL (0.11-0.59); Monocytes % (manual) 10.2 %; Neutrophils # (manual) 0.21 K/uL (1.4-6.5); Neutrophils % (manual) 39.6 %
[2022-01-15] MEDS: CEFEPIME 2,000 MG in SYRINGE 0 ML IV SCH (09:33)
[2022-01-15] MEDS: GABAPENTIN 400 MG CAP PO SCH ×2 (09:34→14:35)
[2022-01-15] MEDS: DOCUSATE SODIUM/SENNA 50/8.6MG TAB PO SCH (09:34)
--- NOTE | 2022-01-15 09:58 | Discharge Summary ---
Date of Service January 15, 2022 Admission HPI Per Admitting Provider This is a 76-year-old female with past medical history significant for hypothyroidism, history of hypercholesterolemia, a fib, COPD, chronic rhinitis, thoracic aortic aneurysm, hypertension, history of stenosis of left subclavian artery, gastroparesis, GERD, chronic kidney disease stage III, history of melanoma in situ, history of T12 compression fracture, osteoporosis, history of cerebral infarction, history of postherpetic trigeminal neuralgia, iron deficiency anemia due to chronic blood loss, pancytopenia, history of DVT, status post IVC filter, depression, anxiety, TIA, history of recurrent follicular lymphoma, history of mucoepidermoid carcinoma of the low-grade, status post surgical excision of the lesion on the right superficial parotid region, who lives at her home alone, brother lives a couple of doors away, presents with weakness. The patient states she was able to go to bathroom on her own. Son and family was at home from [place] for a couple of days and they left in the evening. After that the patient was having difficulty getting up from the bed to the chair, she called her brother and was brought in here. Hemodynamically stable, has pancytopenia. Sodium of 129, potassium of 3.2, r esting comfortably, hemodynamically stable. Denies any chest pain or headache. No blurred visions, no runny nose, no sore throat, no cough, no fevers. Appetite is down, not eating much. No difficulty swallowing. No shortness of breath, no nausea, no vomiting, no abdominal pain. She says she has some rectal pain from her hemorrhoids and sometimes she gets blood in the stools. Normal bladder movements. Principal Diagnosis Perirectal Abscess Chronic pancytopenia, transfusion dependent Sepsis, treated and resolved Chronic Hyponatremia Transfusion reaction Discharge Exam Feels much better, stronger. Reports that she ambulated from bed to her commode across the room twice already this morning. Excited to return home. On exam, appears well, bright, engaging. Breathing comfortably on room air, no wheezing/rhonchi/rales Abd soft non tender Regular rate and rhythm No leg swelling Discharge Data Allergies Allergy/AdvReac Type Severity Reaction Status Date / Time No Known Allergies Allergy Verified 01/04/22 11:01 Consultations 01/06/22 01:18 ED Decision to Admit Stat 01/07/22 08:00 Consult Palliative Care Routine 01/08/22 09:30 Consult Nephrology Routine 01/10/22 17:46 Consult General Surgery Routine Ordered Studies 01/07/22 10:45 US renal/blad retro comp Urgent 01/10/22 16:02 CT abd pelvis IV con only Urgent 01/13/22 08:29 CT abd pelvis oral and IV con Routine Hospital Course Mrs Alisha Link is a 76 year old female with history of transfusion dependent pancytopenia, AML, lymphoma (sees Dr Saucedo), history of DVT with IVC filter (no AC due to thrombocytopenia), CKD stage 3 and remaining medical history per H&P was admitted 01/06/2022 from home for progressive weakness which was initially believed to be from her anemia. She was also noted to have chronic hyponatremia with a Na of 131. While here, she received multiple packed RBC for her transfusion dependent anemia (total 5 units). And she also received a total of 3 units platelet. She was also seen by Nephrology for her hyponatremia and started on IV fluid and lasix. On 01/10 she received 1 unit platelet with no reaction but while receiving 1 unit pRBC she developed shaking rigors, fever and shortness of breath. Labwork revealed transaminitis and a CT A/P with contrast revealed a 2cm perirectal abscess. She met sepsis criteria with fever, neutropenia and hypotension. Upon further evaluation, patient reports several weeks of rectal pain which she attributed to hemorrhoids. CXR revealed pulmonary edema so her IVF was discontinued and she continued to receive lasix. Subsequent CXR several days later confirmed resolution of pulmonary edema and patient was 100% on RA at discharge. She was placed on zosyn which was later changed to cefepime and flagyl due to her worsening pancytopenia. She was evaluated by Surgery and it was recommended trial of conservative management. She was seen again by Surgery on 01/14 and it was felt that her perirectal abscess is healing and she does not need I/D. She will be discharged on Bactrim for 10 days and will follow up with Dr Valladares in 2 weeks to evaluate her perirectal abscess. She was initially evaluated by PT and it was recommended she go to SNF which she is adamantly opposed to. With the treatment of her abscess, she felt much stronger and has been able to ambulate in her room using a walker. She plans to return home with her daughter who has moved in with her temporarily and CM was contacted to arrange for home care services (PT, RN) She gets twice weekly CBC and gets weekly transfusion through Dr Saucedo's office, she will continue this regimen at discharge. While on Bactrim, she will need weekly BMP to monitor Cr and lytes. With results to her PCP. Labwork will be drawn by visiting nurse While on Bactrim, she does not need to take her Cefpodoxime. She can resume her Cefpodoxime after she completes her Bactrim course. This was explained to her All questions were answered. Detailed discharge instructions and explanations provided to patient and included in her discharge instruction. Home Health Attestation I certify that this patient is under my care and that I, or a physicians evaluation assistant working with me, had a face to-face encounter that meets the home health [id number] encounter requirements with this patient. The encounter with the patient was in whole, or in part, for the following medical condition, which is the primary reason for home health care (list medical condition): I certify that, based on my findings, the following services are medically necessary home health services: My clinical findings support the need for the above services because: Further, I certify that my clinical findings support that this patient is homebound (i.e. absences from home require considerable and taxing effort and are for medical reasons or shinto services or infrequently or of short duration when for other reasons) because: Certification for Home Health Services: Based on the above findings, I certify that this patient is confined to the home and needs intermittent long-term care, physical therapy and/or speech therapy or continues to need occupational therapy. The patient is under my care, and I have initiated the establishment of the plan of care. This patient will be followed by a physician who will periodically review the plan of care. Total Time Total Time Spent Total Time Spent (In Minutes): 40 Discharge Plan Discharge Items Patient Disposition: Home - Home Health Services Reason For Visit: WEAKNESS Discharge Diagnosis: Perirectal Abscess Chronic pancytopenia, transfusion dependent Sepsis, treated and resolved Hyponatremia Transfusion reaction Condition on Discharge: Good Activity: Resume your previous activity Non-emergency contact: Primary Care Provider and Surgeon Call non-emergency contact if: you have any medication questions, your symptoms worsen and you have a fever Follow-up/Referrals: Flor Rubio DO [Primary Care Provider] - Elan Valladares MD [Physician] - (Follow up in 2 weeks) Walter Saucedo MD [Hospitalist] - Diet: Regular Addtl Attending Provider Instructions: You will be discharged on Bactrim for 10 days. While you are on Bactrim, you do NOT need to also take your Cefpodoxime (Vantin). Please follow up with Dr Valladares in 2 weeks to evaluate your rectal abscess Avoid constipation, take a stool softener or laxative as needed to achieve a bowel movement every 2 days (at least) Your Visiting Nurse will draw your CBC twice weekly--> Results to be sent to Dr Saucedo, his office will contact you if you need a blood transfusion. Your next blood draw will be 01/17. While on the Bactrim, you should also have weekly BMP (to monitor your kidney function and electrolytes). Every Friday: CBC (ongoing--> results to Dr Saucedo), BMP (only while taking Bactrim--> results to PCP) Every : CBC (ongoing--> results to Dr Saucedo) Pending Studies at Discharge: No Stand-Alone Forms: My Naver[employer], Smoking Cessation Medications and DC Order Prescriptions: New acetaminophen 325 mg Tablet 650 mg PO Q6H PRN (Reason: pain) Qty: 30 RF: 0 sennosides-docusate sodium [Senokot-S] 8.6-50 mg Tablet 1 tab PO QAM PRN (Reason: constipation) Qty: 30 RF: 0 sulfamethoxazole-trimethoprim [Bactrim DS] 800-160 mg tablet 1 tab PO BID Qty: 20 RF: 0 Continued Breo Ellipta 100-25 mcg/dose blister with device 1 inh inhalation QAM PRN (Reason: Shortness Of Breath Or Wheezing) RF: 0 venlafaxine [Effexor XR] 75 mg capsule,extended release 24hr 75 mg PO HS RF: 0 pantoprazole [Protonix] 40 mg tablet,delayed release (DR/EC) 40 mg PO QAM RF: 0 fluticasone propionate [Flonase Allergy Relief] 50 mcg/actuation Porum,S uspension 2 spray INTRANASAL QAM RF: 0 diclofenac sodium [Voltaren Arthritis Pain] 1 % gel 4 g TOPICAL QID PRN (Reason: Pain) RF: 0 spironolactone [Aldactone] 25 mg tablet 12.5 mg PO DAILY RF: 0 acyclovir 400 mg tablet 400 mg PO BID RF: 0 cefpodoxime 200 mg tablet 200 mg PO Q12 RF: 0 levothyroxine 125 mcg tablet 125 mcg PO DAILYBB RF: 0 allopurinol 300 mg tablet 300 mg PO DAILY RF: 0 Cresemba 186 mg capsule 186 mg PO BID RF: 0 ondansetron HCl 8 mg tablet 8 mg PO Q8H PRN (Reason: NAUSEA/VOMITING) RF: 0 gabapentin 400 mg capsule 400 mg PO TID RF: 0 Venclexta 100 mg tablet 100 mg PO DAILY RF: 0 metoprolol succinate 25 mg tablet extended release 24 hr 25 mg PO DAILY RF: 0 amiodarone 200 mg tablet 200 mg PO DAILY RF: 0 rosuvastatin 20 mg tablet 20 mg PO DAILY RF: 0 Discharge Orders: Discharge Order (Routine); Ordered 01/15/22 Ordered By: Nury Dewey Admission Data Admit Date/Time: 01/06/22 02:53 Attending Provider: Nury Dewey Admit Provider: Hemal Mojica Primary Care Provider: Flor Rubio Other Providers: Kimber Kaufman I. ; Lita Dickens [facility] ; [facility] ; [facility] ; [place] ; Hemal Mojica ; Karie Caldera ; Elan Valladares
[2022-01-15 11:16] VITALS: TEMP 97.7
--- NOTE | 2022-01-15 11:18 | Surgery Progress Note ---
Date of Service January 15, 2022 Assessment & Plan (1) Adeline-rectal abscess: Plan: pt is a 76 year-old female who had CT scan -finding adeline-rectal abscess, IMP: base on Plt count low 32, Hgb 7.9 with BP 88/48, pt needs to transfusion one unit blood and 2 unit plt, idea plt count >50, possible do I/D perirectal abscess at bedside under local anesthesia, D/w benefits, risks and alternatives of the surgery, pt understood, other option continue iv antibiotic, re-exam in 1-2 days, if worse, need I/D , if pt feels better, may continue conservative treatment, pt also has UTI, 01/14/2022 4:50PM, DR. Blaine Ferguson/Sania perirectal abscess, pt is doing better, perirectal abscess resolved, may stop IV antibiotic, change po bactrim tomorrow, for 10 days, will F/U, 01/15/2022 11:17AM, DR. Blaine Arevalo perirectal abscess, pt is doing better, perirectal abscess resolved, may stop IV antibiotic, change po bactrim tomorrow, for 10 days, sign off today, F/U il 2 weeks, please call with questions, Thanks, Admission and Anticipated Discharge Date Admission Date: January 06, 2022 Supervising Physician Co-Signing Physician Notes I personally saw and evaluated the patient with Carlos Faulkner PA-C and agree with the assessment and plan. 76-year-old female with pancytopenia and a small 2 cm perirectal abscess Continue IV antibiotics We will continue to monitor the patient's progress on IV antibiotics, I&D still may be indicated if she worsens We will follow Subjective Received 2 units platelets yesterday Remains afebrile Less abdominal/rectal cramping after she had her BM several days ago She is still adamant about returning home eventually rather than SNF. Her daughter is coming in from [place] today 01/14/2022 4:48PM, Dr. Blaine Arevalo perirectal abscess, pt is doing better, no rectal pain, no fever, 01/15/2022 11:15AM, Dr. Blaine Arevalo perirectal abscess, pt is doing better, no rectal pain, no fever, Physical Exam Constitutional: WD/WN, vitals as above Eyes: PERRL, conjunctivae normal, anicteric sclerae Neck: trachea midline, no thyromegaly Cardiovascular: RRR, no murmur, no edema Gastrointestinal (Abdomen): soft, NT, ND, no tenderness at rectal area, Neurologic: patellar DTR's 2+ bilat, sensation intact Psychiatric: A+Ox3, euthymic affect Results & Data ([facility]) Vital Signs (Past 12 Hours) Vital Signs Temp Pulse Pulse Resp BP BP Pulse Ox 01/15/22 11:12 36.6 C 60 20 127/56 L 113/62 100 01/15/22 07:25 36.6 C 60 20 127/56 L 100 01/15/22 06:20 62 01/15/22 03:50 36.7 C 61 20 125/67 99 Laboratory Results Abnormal lab results 01/15/22 01/15/22 Range/Units 05:55 05:55 WBC 0.52 L* (4.8-10.8) K/uL RBC 2.91 L (4.2-5.4) M/uL Hgb 8.4 L (12.0-16.0) g/dL Hct 24.8 L (37-47) % Plt Count 35 L (130-400) K/uL Neutrophils # (Manual) 0.21 L (1.4-6.5) K/uL Total Absolute Neuts 0.21 L* (1.4-6.5) K/uL Lymphocytes # (Manual) 0.25 L (1.2-3.4) K/uL Total Abs Lymphocytes 0.25 L (1.2-3.4) K/uL Monocytes # (Manual) 0.05 L (0.11-0.59) K/uL Platelet Estimate Decreased L (Normal) Sodium 134 L (136-145) mmol/L Chloride 97 L (98-107) mmol/L BUN/Creatinine Ratio 24.0 H (10-20) Glucose 100 H (70-99(Fasting)) mg/dl Calcium 8.2 L (8.5-10.1) mg/dl
[2022-01-15] MEDS: HEPARIN 100 UNIT/ML 5ML FLUSH FLUSH PRN (12:07)
[2022-01-15 14:42] VITALS: BP 135/71; O2SAT 97
[2022-01-15 16:13] VITALS: PULSE 69
--- NOTE | 2022-01-21 15:16 | Coding Query ---
SEPSIS To promote full compliance with coding requirements relating to patient care, physician participation is requested in all cases of hoop maker helper machine uncertainty. Please assist us with the question(s) below: In responding to this query, please exercise your independent professional judgement. The fact that a question is asked does not imply that any particular answer is desired or expected. We appreciate your clarification on this issue. Throughout the medical record, you have clearly documented a localized infection and your patient has clinical evidence of a generalized sepsis or severe sepsis. The term urosepsis is a nonspecific entity and is coded as an UTI. If the patient has sepsis, severe sepsis, from an urinary source or some other source, please clarify in your response below. The medical record reflects the following clinical findings: DS mentions pt transfused 1 PRBC's; after receiving transfusion patient experienced shaking chills, fever and SoB. Patient met Sepsis critieria. Pt also diagnosed with perirectal abscess which she had been experiencing for several weeks. Seeking to determine the etiology of the Sepsis. Please complete below & thank you ! Dorian Valle, [facility] ____ ( x Sepsis Specify Organism Specify Associated Condition/Diagnosis ( ) Present on Admission ( ) Not present on admission ( ) Unable to clinically determine (x) The Etiology of the Sepsis is : perirectal abscess : MTDD
--- NOTE | 2022-01-29 05:46 | Coding Query ---
CODING QUERY To promote full compliance with coding requirements relating to patient care, provider participation is requested in all cases of research anthropologist uncertainty. Please assist us with the question(s) below: Coding Question(s): Discharge Summary documented perirectal abscess as cause of Sepsis . Please check below the phrase that specifies if Sepsis was present on admission. Thanks for your help. Dorian Valle [facility] Physician's Response(s): Sepsis was Present on Admission Sepsis was not Present on Admission ___x Cannot clinically determine if Sepsis was Present on Admission Other: please document: Principal Diagnosis: "that condition established after study, to be chiefly responsible for occasioning the admission of the patient to the hospital for care." Co-Existing Principal Diagnosis: "when two or more diagnoses equally meet the criteria for principal diagnosis as determined by the circumstances of admission, diagnostic work up, and/or therapy provided, and the Alphabetic Index, Tabular List, or another coding guideline does not provide sequencing direction, any one of the diagnoses may be sequenced first." "When the physician has documented what appears to be a current diagnosis in the body of the record, but has not included the diagnosis in the final diagnostic statement, the physician should be asked whether the diagnosis should be added." ([facility] 2 QTR90. p3-4) AVINASH
== END 2022-01-15 15:45 | disposition home health service (06) | DRG 834 ==
LOC: ED 22:48 → 2W 01-06 02:53 → SUATTDRO 01-06 02:53 → 2W 01-06 04:42

== ENCOUNTER 2022-01-29 15:09 | Inpatient (IN) ==
[2022-01-29] MEDS ORDERED: MoRPHine SULFATE 4 MG/ML 1 ML CARP\\VIAL IV PRN (15:31)
[2022-01-29] MEDS ORDERED: SODIUM CHLORIDE 0.9% 1000ML 1,000 ML IV ONE (15:31)
[2022-01-29] MEDS ORDERED: ONDANSETRON INJ 2 MG/ML 2 ML VIAL IV STA (15:31)
--- NOTE | 2022-01-29 15:41 | Emergency Department Note ---
Impression & Plan Adeline-rectal abscess, Pancytopenia, Rigors ED Provider Note NAME: KELLIE CHRISTOPHER AGE: 76 SEX: F : 1945 ARRIVES VIA: Walk-In INFORMANT: Patient, ED PROVIDER(S): Juan Godinez DO CHIEF COMPLAINT: Fever HPI: The patient is a 76-year-old female who presented to the emergency department for an evaluation of fever and chills. The patient is a history of a perirectal abscess. This was treated medically. Its been draining and she has been feeling better from this. The patient was feeling constipated and gave herself an enema last evening. Today she awoke with chills and weakness. She went to see her oncologist today for her chemotherapy injection and when they saw that she was not feeling well she was sent to the emergency department for further evaluation. The patient is also been noticing back pain which she notices by her tailbone. She denies having any abdominal pain. She has had no nausea or vomiting. She also noted some right-sided flank pain. She denies having any dysuria or frequency. Patient states she did not take any medications other than her prescription medications today. ROS: See above HPI for pertinent positives & negatives. A total of 10 systems reviewed and were otherwise negative. PAST MEDICAL HISTORY: See Below PAST SURGICAL HISTORY: See Below FAMILY HISTORY: See Below SOCIAL HISTORY: See Below HOME MEDICATIONS: See Below ALLERGIES: See Below VITALS: See Below PHYSICAL EXAMINATION: GENERAL: Patient is awake and alert. The patient is somewhat anxious appearing. EYES: The conjunctivae are clear. The pupils are round and reactive. EARS, NOSE, MOUTH AND THROAT: The nose is without any evidence of any deformity. NECK: The neck is nontender and supple. RESPIRATORY: Normal respiratory effort is noted there is no evidence of wheezing rhonchi or rales CARDIOVASCULAR: Regular rate and rhythm noted there no murmurs rubs or gallops normal S1 normal S2. GASTROINTESTINAL: The abdomen is soft. Abdomen is nontender. There is an area on the left buttocks that is draining. There is tenderness but no swelling or erythema. BACK: No midline tenderness was noted to palpation. Right CVA tenderness was noted to percussion. MUSCULOSKELETAL/EXTREMITIES: There is no evidence of gross deformity full range of motion is noted in the hips and shoulders. SKIN: Trace pedal edema was noted bilaterally. NEUROLOGIC: Patient is awake alert and oriented x3. MEDICAL DECISION MAKING: The patient is a 76-year-old female who presented to the emergency department with chills. The patient was noted to have low back pain especially over her sacrum and coccyx region. She has a history of a recently treated perirectal abscess. Radiographic studies were obtained and show that this area is resolving but given the patient's symptoms and pancytopenia she was treated with IV antibiotics. I discussed her condition with the on-call general surgical group. The patient was evaluated in the emergency department. At this time she does not appear to require surgical intervention and she is also pancytopenic. I discussed her case with the on-call [facility] hospitalist. They have agreed to evaluate the patient in the emergency department for further management and disposition. Triage Nursing notes reviewed. Prior medical records reviewed Vital Signs: reviewed and remarkable for no significant abnormalities Differential diagnosis: Viral syndrome, otitis, pharyngitis, pneumonia, influenza, meningitis, urinary tract infection, sepsis, bacteremia, as well as other pathologies. ER treatment provided: See below Diagnostics interpreted by me: ECG: KG was obtained in the emergency department. My interpretation is normal sinus rhythm at 73 bpm. Right bundle branch block pattern was noted. There were no PVCs. This was compared to a tracing from January 052021. No changes were noted. Cardiac Monitoring: An order was placed for continuous cardiac monitoring. The monitor shows a rate of 70 bpm with sinus rhythm. Laboratory studies: As stated above and show below. Imaging studies: See below Consultation(s): I discussed this case with Marlon Faulkner who is on-call for general surgery. I discussed this case with Dr. Mojica is on-call for the [facility] group. Past Med/Surg History Medical History Acute on chronic anemia AML (acute myeloblastic leukemia) Asthma Well controlled CKD (chronic kidney disease), stage III COPD (chronic obstructive pulmonary disease) Diverticulitis Hx Esophageal reflux Essential tremor Follicular lymphoma History of DVT (deep vein thrombosis) 2007 > in setting prolonged inactivity from hospital admission HLD (hyperlipidemia) HTN (hypertension) Hypothyroidism Palliative care encounter Pancreatitis Hx Post-herpetic trigeminal neuralgia Reason for gabapentin Thoracic aortic aneurysm without rupture Ascending thoracic aorta is ectatic up to 4.4 cm (Previously measured 4.1 cm in 2012. Slowly increasing in size) per 06/2020 CTA, under surveillance by Dr. Cohn Surgical History H/O parotidectomy (11/2003) H/O: hysterectomy History of bone marrow biopsy (10/2011) Jul 2021 History of cataract surgery bilat History of colonoscopy (02/16/19) History of cystoscopy (06/02/12) History of dilatation and curettage History of ERCP (06/21/08) History of esophagogastroduodenoscopy (EGD) (03/06/16) History of excision of lesion (04/02/21) Right Superficial Parotid S/P cholecystectomy S/P insertion of IVC (inferior vena caval) filter (06/26/12) 2012 > [place] Filter Placement Right Groin Dr. Srivastava at [facility] Status post excisional biopsy (07/07/17) Left Inguinal Lymph Node Dr. Anderson at [facility] Status post fine needle aspiration (04/05/21) Left External Iliac Lymph Node under USG Dr. Coreas at [facility] Status post fine needle aspiration (02/08/19) Right Parotid Gland Lesion Family History Grandmother (Maternal) , Passed Age 52 due to Colon Cancer No problems noted. Father , Passed Age 72 due to Lung Cancer, occupation related No problems noted. Mother , Passed Age 84 of unknown cancer No problems noted. Brother , Passed Age 70 of unknown cancer No problems noted. Brother No problems noted. Daughter CLL (chronic lymphocytic leukemia) Son No problems noted. Son No problems noted. Son No problems noted. Aunt , Passed Age 70 due to Breast Cancer No problems noted. 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 How many Children do You have: 4 Feels Safe at Home: Yes Safety Concerns: Feels Safe At This Time Childhood Exposure to Second-Hand Smoke: Yes (father smoked in home) caffeine: Yes (cola daily) during the past year weight has: remained stable Dental Care, Regularly: Yes Physical Activity Frequency: Does not Exercise Assistive Devices: Cane and Walker Allergies Allergies Allergy/AdvReac Type Severity Reaction Status Date / Time No Known Allergies Allergy Verified 01/22/22 09:04 Home Meds Home Medications Medication Instructions Recorded Confirmed fluticasone propionate 50 2 spray INTRANASAL QAM 08/03/19 01/29/22 mcg/actuation nasal spray,suspension (Flonase Allergy Relief) pantoprazole 40 mg tablet,delayed 40 mg PO QAM 08/03/19 01/29/22 release (Protonix) venlafaxine 75 mg capsule,extended 75 mg PO HS 08/03/19 01/29/22 release 24 hr (Effexor XR) diclofenac sodium 1 % topical gel 4 g TOPICAL QID PRN 10/21/19 01/29/22 (Voltaren Arthritis Pain) fluticasone furoate 100 1 inh INHALATION QAM PRN 05/02/21 01/29/22 mcg-vilanterol 25 mcg/dose inhalation powder (Breo Ellipta) acyclovir 400 mg tablet 400 mg PO BID 09/17/21 01/29/22 allopurinol 300 mg tablet 300 mg PO DAILY 12/30/21 01/29/22 cefpodoxime 200 mg tablet 200 mg PO Q12 12/30/21 01/29/22 isavuconazonium sulfate 186 mg 186 mg PO BID 12/30/21 01/29/22 capsule (Cresemba) levothyroxine 125 mcg tablet 125 mcg PO DAILYBB 12/30/21 01/29/22 ondansetron HCl 8 mg tablet 8 mg PO Q8H PRN 12/30/21 01/29/22 amiodarone 200 mg tablet 200 mg PO DAILY 01/05/22 01/29/22 metoprolol succinate 25 mg 12.5 mg PO DAILY 01/05/22 01/29/22 tablet,extended release 24 hr rosuvastatin 20 mg tablet 20 mg PO DAILY 01/05/22 01/29/22 venetoclax 100 mg tablet 100 mg PO DAILY 01/05/22 01/29/22 (Venclexta) gabapentin 300 mg capsule 300 mg PO QID 01/29/22 01/29/22 spironolactone 25 mg tablet 12.5 mg PO DAILY 01/29/22 01/29/22 Previous Rx's Medication Instructions Recorded acetaminophen 325 mg tablet 650 mg PO Q6H PRN #30 tab 01/15/22 sennosides 8.6 mg-docusate sodium 1 tab PO QAM PRN #30 tab 01/15/22 50 mg tablet (Senokot-S) Results & Data (ED) Vital Signs Vital Signs - 24 hr 01/29/22 16:00 01/29/22 18:00 01/29/22 20:00 Pulse Rate [Apical] 72 71 68 Respiratory Rate 19 20 18 Respiratory Depth Normal Blood Pressure [Right Arm] 135/78 108/48 L 115/52 L Blood Pressure Mean [Right Arm] 97 68 73 Pulse Oximetry 98 92 98 Oxygen Delivery Method Room Air Room Air Room Air Home Medications Current Medication List: was personally reviewed by me Laboratory Data Attestation: I reviewed the patient's lab results. Result diagrams: 01/30/22 05:25 01/30/22 05:25 Lab Results 01/29/22 01/29/22 01/29/22 Range/Units 16:04 16:04 16:04 WBC 2.94 L (4.8-10.8) K/uL RBC 2.68 L (4.2-5.4) M/uL Hgb 7.7 L (12.0-16.0) g/dL Hct 23.2 L (37-47) % MCV 86.6 (80-100) fL MCH 28.7 (25-34) pg MCHC 33.2 (32-36) g/dL RDW Std Deviation 46.2 (36.4-46.3) fL RDW Coeff of Rosamaria 14.7 H (11.5-14.5) % Plt Count 87 L (130-400) K/uL MPV 9.1 (7.4-10.4) fL Immature Gran % (Auto) 0.3 % Neut % (Auto) 72.9 % Lymph % (Auto) 12.9 % [place] % (Auto) 13.9 % Eos % (Auto) 0.0 % Baso % (Auto) 0.0 % Neut # (Auto) 2.14 (1.4-6.5) K/uL Lymph # (Auto) 0.38 L (1.2-3.4) K/uL [place] # (Auto) 0.41 (0.11-0.59) K/uL Eos # (Auto) 0.00 (0-0.5) K/uL Baso # (Auto) 0.00 (0-0.2) K/uL Immature Gran # (Auto) 0.01 (0.00-0.02) K/uL PT 11.1 (9.0-12.0) Seconds INR 1.0 (0.9-1.1) APTT 52.8 H* (21.0-31.0) Seconds PTT Ratio 1.9 Sodium 132 L (136-145) mmol/L Potassium 4.0 (3.5-5.1) mmol/L Chloride 100 (98-107) mmol/L Carbon Dioxide 26 (21-32) mmol/L Anion Gap 6 (3-11) BUN 17 (6-23) mg/dl Creatinine 1.03 (0.6-1.2) mg/dl Est Cr Clr Drug Dosing Not Reportable Est GFR ( Amer) 60.7 ml/min Est GFR (Non-Af Amer) 52.4 ml/min BUN/Creatinine Ratio 16.5 (10-20) Glucose 110 H (70-99(Fasting)) mg/dl Calcium 8.5 (8.5-10.1) mg/dl Total Bilirubin 0.4 (0.2-1.0) mg/dl AST 13 (13-39) U/L ALT 23 (7-52) U/L Alkaline Phosphatase 112 H (34-104) U/L Total Protein 6.2 (6.0-8.3) gm/dl Albumin 3.9 (3.4-5.0) gm/dl Globulin 2.3 L (2.5-4.0) gm/dl Albumin/Globulin Ratio 1.7 (0.9-2) Urine Color Urine Appearance (Clear) Urine pH (4.5-7.5) Ur Specific [place] (1.000-1.030) Urine Protein (Negative) Urine Glucose (UA) (Negative) Urine Ketones (Negative) Urine Blood (Negative) Urine Nitrite (Negative) Urine Bilirubin (Negative) Urine Urobilinogen (Negative) Ur Leukocyte Esterase (Negative) SARS-CoV-2, RNA, NAAT (NEGATIVE) 01/29/22 01/29/22 Range/Units 18:15 20:34 WBC (4.8-10.8) K/uL RBC (4.2-5.4) M/uL Hgb (12.0-16.0) g/dL Hct (37-47) % MCV (80-100) fL MCH (25-34) pg MCHC (32-36) g/dL RDW Std Deviation (36.4-46.3) fL RDW Coeff of Rosamaria (11.5-14.5) % Plt Count (130-400) K/uL MPV (7.4-10.4) fL Immature Gran % (Auto) % Neut % (Auto) % Lymph % (Auto) % [place] % (Auto) % Eos % (Auto) % Baso % (Auto) % Neut # (Auto) (1.4-6.5) K/uL Lymph # (Auto) (1.2-3.4) K/uL [place] # (Auto) (0.11-0.59) K/uL Eos # (Auto) (0-0.5) K/uL Baso # (Auto) (0-0.2) K/uL Immature Gran # (Auto) (0.00-0.02) K/uL PT (9.0-12.0) Seconds INR (0.9-1.1) APTT (21.0-31.0) Seconds PTT Ratio Sodium (136-145) mmol/L Potassium (3.5-5.1) mmol/L Chloride (98-107) mmol/L Carbon Dioxide (21-32) mmol/L Anion Gap (3-11) BUN (6-23) mg/dl Creatinine (0.6-1.2) mg/dl Est Cr Clr Drug Dosing Est GFR ( Amer) ml/min Est GFR (Non-Af Amer) ml/min BUN/Creatinine Ratio (10-20) Glucose (70-99(Fasting)) mg/dl Calcium (8.5-10.1) mg/dl Total Bilirubin (0.2-1.0) mg/dl AST (13-39) U/L ALT (7-52) U/L Alkaline Phosphatase (34-104) U/L Total Protein (6.0-8.3) gm/dl Albumin (3.4-5.0) gm/dl Globulin (2.5-4.0) gm/dl Albumin/Globulin Ratio (0.9-2) Urine Color Yellow Urine Appearance Clear (Clear) Urine pH 5.0 (4.5-7.5) Ur Specific [place] 1.023 (1.000-1.030) Urine Protein Negative (Negative) Urine Glucose (UA) Negative (Negative) Urine Ketones Negative (Negative) Urine Blood Negative (Negative) Urine Nitrite Negative (Negative) Urine Bilirubin Negative (Negative) Urine Urobilinogen Negative (Negative) Ur Leukocyte Esterase Negative (Negative) SARS-CoV-2, RNA, NAAT NEGATIVE (NEGATIVE) Administered Medications Acetaminophen (Acetaminophen 325 Mg Tab) 650 mg PO Q4H PRN PRN Reason: Pain or Fever Stop: 02/28/22 22:38 Last Admin: 01/30/22 05:48 Dose: 650 mg Documented by: [id number] Acyclovir (Acyclovir 400 Mg Tab) 400 mg PO BID [facility]; Protocol Stop: 03/01/22 08:59 Last Admin: 01/30/22 07:26 Dose: 400 mg Documented by: [id number] Allopurinol (Allopurinol 300 Mg Tab) 300 mg PO DAILY [facility] Stop: 03/01/22 08:59 Last Admin: 01/30/22 07:22 Dose: 300 mg Documented by: [id number] Amiodarone HCl (Amiodarone 200 Mg Tab) 200 mg PO DAILY [facility] Stop: 03/01/22 08:59 Last Admin: 01/30/22 07:23 Dose: 200 mg Documented by: [id number] Cyclobenzaprine HCl (Cyclobenzaprine Hcl 5 Mg Tab) 5 mg PO BID PRN PRN Reason: muscle spasms Last Admin: 01/30/22 10:22 Dose: 5 mg Documented by: [id number] Diclofenac Sodium (Diclofenac Sod 1% Gel 100 Gm Tube) 4 gm EXT QID PRN PRN Reason: Pain Stop: 02/28/22 22:38 Last Admin: 01/30/22 10:22 Dose: 4 gm Documented by: [id number] Fluticasone Propionate (Fluticasone Propionate Na Spr 16 Gm Btl) 2 sprays NA QA M AJAY Stop: 03/01/22 08:59 Last Admin: 01/30/22 07:21 Dose: 2 sprays Documented by: [id number] Gabapentin (Gabapentin 300 Mg Cap) 300 mg PO QID [facility] Stop: 03/01/22 08:59 Last Admin: 01/30/22 13:24 Dose: 300 mg Documented by: [id number] Admin: 01/30/22 07:22 Dose: 300 mg Documented by: [id number] Hydromorphone HCl (Hydromorphone Inj 0.5 Mg/0.5 Ml Syr) 0.5 mg IV Q4H PRN PRN Reason: Pain Stop: 02/12/22 22:38 Last Admin: 01/30/22 13:29 Dose: 0.5 mg Documented by: [id number] Admin: 01/30/22 09:03 Dose: 0.5 mg Documented by: [id number] Admin: 01/30/22 01:50 Dose: 0.5 mg Documented by: [id number] Sodium Chloride (Nss 1000ml) 1,000 mls @ 50 mls/hr IV .Q20H [facility] Stop: 01/30/22 18:38 Last Admin: 01/29/22 23:10 Dose: 50 mls/hr Documented by: [id number] Piperacillin Sod/Tazobactam (Sod 3.375 gm/ Dextrose) 115 mls @ 28.75 mls/hr IV Q8H [facility]; Protocol Stop: 02/09/22 07:59 Last Infusion: 01/30/22 15:22 Dose: 0 mls/hr Documented by: [id number] Infusion: 01/30/22 13:58 Dose: 28.8 mls/hr Documented by: [id number] Infusion: 01/30/22 11:14 Dose: 0 mls/hr Documented by: [id number] Admin: 01/30/22 08:06 Dose: 28.8 mls/hr Documented by: [id number] Levothyroxine Sodium (Levothyroxine Sodium 125 Mcg Tablet) 125 mcg PO DAILYBB [facility] Stop: 03/01/22 06:29 Last Admin: 01/30/22 05:28 Dose: 125 mcg Documented by: [id number] Metoprolol Succinate (Metoprolol Succ 25mg Ext Rel Tab) 12.5 mg PO DAILY [facility] Stop: 03/01/22 08:59 Last Admin: 01/30/22 07:25 Dose: Not Given Documented by: [id number] Cefpodoxime 200mg Tab~Non-Formulary Patient's Own Med 1 ea PO Q12 AJAY Stop: 03/01/22 10:59 Last Admin: 01/30/22 10:23 Dose: 1 tab Documented by: [id number] Isavuconazonium Suflate 186 Mg Cap ( Cresemba)~Non- Formulary Patient's Own Med 1 ea PO BID AJAY Stop: 03/01/22 10:59 Last Admin: 01/30/22 10:23 Dose: 1 cap Documented by: [id number] Pantoprazole Sodium (Pantoprazole 40 Mg Tab) 40 mg PO QAM [facility] Stop: 03/01/22 08:59 Last Admin: 01/30/22 07:22 Dose: 40 mg Documented by: [id number] Rosuvastatin Calcium (Rosuvastatin Calcium 20 Mg Tab) 20 mg PO DAILY [facility] Stop: 03/01/22 08:59 Last Admin: 01/30/22 07:22 Dose: 20 mg Documented by: [id number] Spironolactone (Spironolactone 12.5 Mg Tab) 12.5 mg PO DAILY [facility] Stop: 03/01/22 08:59 Last Admin: 01/30/22 07:22 Dose: 12.5 mg Documented by: [id number] Venetoclax (Venetoclax) 1 ea PO DAILY AJAY Stop: 03/01/22 10:59 Last Admin: 01/30/22 10:23 Dose: 1 ea Documented by: [id number] Cosigned by: [id number] Discontinued Medications Acetaminophen (Acetaminophen 500 Mg Tab) 1,000 mg PO NOW STA Stop: 01/29/22 21:07 Last Admin: 01/29/22 21:11 Dose: Not Given Documented by: [id number] Acetaminophen (Acetaminophen 500 Mg Tab) Confirm Administered Dose 1,000 mg .ROUTE .STK-MED ONE Stop: 01/29/22 21:08 Last Admin: 01/29/22 21:11 Dose: 1,000 mg Documented by: [id number] Acetaminophen (Acetaminophen 325 Mg Tab) 650 mg PO NOW ONE Stop: 01/30/22 07:31 Last Admin: 01/30/22 08:19 Dose: Not Given Documented by: [id number] Acetaminophen (Acetaminophen 325 Mg Tab) 650 mg PO NOW ONE Stop: 01/30/22 08:15 Last Admin: 01/30/22 09:44 Dose: 650 mg Documented by: [id number] Diphenhydramine HCl (Diphenhydramine Capsule 25 Mg Cap) 25 mg PO NOW ONE Stop: 01/30/22 08:13 Last Admin: 01/30/22 09:44 Dose: 25 mg Documented by: [id number] Furosemide (Furosemide Inj 20 Mg/2 Ml Vial) 20 mg IV ONE ONE Stop: 01/30/22 10:01 Last Admin: 01/30/22 13:35 Dose: Not Given Documented by: [id number] Furosemide (Furosemide Inj 20 Mg/2 Ml Vial) Confirm Administered Dose 20 mg IV .STK-MED ONE Stop: 01/30/22 13:29 Last Admin: 01/30/22 13:36 Dose: 20 mg Documented by: [id number] Sodium Chloride (Nss 1000ml) 1,000 mls @ 999 mls/hr IV .Q1H1M ONE Stop: 01/29/22 16:31 Last Infusion: 01/29/22 21:12 Dose: 0 mls/hr Documented by: [id number] Admin: 01/29/22 16:53 Dose: 999 mls/hr Documented by: [id number] Piperacillin Sod/Tazobactam Sod (Zosyn) 4.5 gm in 120 mls @ 240 mls/hr IV NOW ONE Stop: 01/29/22 18:10 Last Infusion: 01/29/22 21:12 Dose: 0 mls/hr Documented by: [id number] Infusion: 01/29/22 21:12 Dose: 0 mls/hr Documented by: [id number] Admin: 01/29/22 18:40 Dose: 240 mls/hr Documented by: [id number] Piperacillin Sod/Tazobactam (Sod 4.5 gm/ Dextrose) 120 mls @ 30 mls/hr IV Q8H [facility]; Protocol Stop: 02/09/22 00:00 Last Infusion: 01/30/22 08:07 Dose: 0 mls/hr Documented by: [id number] Admin: 01/30/22 07:36 Dose: 30 mls/hr Documented by: [id number] Infusion: 01/30/22 04:46 Dose: 0 mls/hr Documented by: [id number] Admin: 01/30/22 00:24 Dose: 30 mls/hr Documented by: [id number] Ioversol (Optiray 320 100ml) 93 ml IV ONCE ONE Stop: 01/29/22 17:31 Last Admin: 01/29/22 17:32 Dose: 93 ml Documented by: [id number] Miscellaneous (Venetoclax [Venclexta]: Order Awaiting Action) 1 ea N/A QS AJAY Stop: 03/01/22 07:59 Last Admin: 01/30/22 07:26 Dose: Not Given Documented by: [id number] Miscellaneous (Cefpodoxime: Order Awaiting Action) 1 ea N/A QS AJAY Stop: 03/01/22 07:59 Last Admin: 01/30/22 07:25 Dose: Not Given Documented by: [id number] Miscellaneous (Isavuconazonium Sulfate [Cresemba]: Order Awaiting Action) 1 ea N/A QS AJAY Stop: 03/01/22 07:59 Last Admin: 01/30/22 07:25 Dose: Not Given Documented by: [id number] Morphine Sulfate (Morphine Sulfate 4 Mg/Ml 1 Ml Carp\Vial) 4 mg IV Q15M PRN PRN Reason: Pain Stop: 02/12/22 15:30 Last Admin: 01/29/22 16:53 Dose: 4 mg Documented by: [id number] Ondansetron HCl (Ondansetron Inj 2 Mg/Ml 2 Ml Vial) 4 mg IV NOW STA Stop: 01/29/22 15:32 Last Admin: 01/29/22 16:53 Dose: 4 mg Documented by: [id number] Imaging Data Radiologist's Impression: Abdomen/Pelvis CT 01/29/22 15:31 CT abd pelvis IV con only CLINICAL HISTORY: recent abscess TECHNIQUE: Helical axial images of the abdomen and pelvis were obtained and displayed. Automated dose lowering techniques and/or adjustment according to patient size were utilized for this exam. This exam was performed with intravenous contrast. COMPARISON: Comparison is made to CT abdomen pelvis 01/13/2022 FINDINGS: Lower chest: No acute abnormality Liver: Unremarkable. No focal lesions are seen. Gallbladder and biliary tree: Patient is status post cholecystectomy. Physiologic prominence of the biliary ducts is noted. Trace pneumobilia is again seen. Pancreas: Unremarkable, no focal lesions. Spleen: Unremarkable. Adrenals: Unremarkable. Kidneys and ureters: A small right renal cyst is unchanged. Bladder: Unremarkable. Reproductive organs: Patient is status post hysterectomy. Bowel: Diverticulosis is seen without evidence of diverticulitis. Previously noted perirectal abscess is no longer seen, residual soft tissue stranding/thickening is seen about the rectum. Lymph nodes Retroperitoneal: Unremarkable. Mesenteric: Unremarkable. Pelvic: Unremarkable. Peritoneum: Normal. Vessels: IVC filter is seen. Atherosclerotic calcifications are seen. Varices are noted in the pelvic soft tissues. Abdominal wall: Unremarkable. Bones: Degenerative changes in the visualized spine. T12 compression deformity is unchanged. Pars defect is seen at L5-S1. IMPRESSION: Interval improvement in previously noted perirectal abscess. No drainable fluid collection is seen although residual soft tissue stranding is noted. ACT 112: Negative or not required by law. Electronically signed by: Magno Erickson M.D. 01/29/2022 5:58 PM Discharge Plan Visit Data Chief Complaint: Referred by Doctor Stated Complaint: ROMERO, THINKS SHE HAS AN INFECTION ED Provider: Juan Godinez Discharge Problem: Adeline-rectal abscess, Pancytopenia, Rigors Patient Disposition: Admitted As Inpatient Discharge Instructions Interventions: ED Discharge Assessment Last Done: 01/29/22 21:55
[2022-01-29 16:28] LABS: Hematocrit (blood only) 23.2 % (37-47); Hemoglobin 7.7 g/dL (12.0-16.0); Mean Corpuscular Hemoglobin 28.7 pg (25-34); Mean Corpuscular Hgb Conc 33.2 g/dL (32-36); Mean Corpuscular Volume 86.6 fL (80-100); Mean Platelet Volume 9.1 fL (7.4-10.4); Platelet Count 87 K/uL (130-400); RDW Coefficient of Variation 14.7 % (11.5-14.5); RDW Standard Deviation 46.2 fL (36.4-46.3); Red Blood Count 2.68 M/uL (4.2-5.4); White Blood Count 2.94 K/uL (4.8-10.8)
[2022-01-29 16:46] LABS: Alanine Aminotransferase 23 U/L (7-52); Albumin Globulin Ratio 1.7 (0.9-2); Albumin Level 3.9 gm/dl (3.4-5.0); Alkaline Phosphatase 112 U/L (34-104); Anion Gap 6 (3-11); Aspartate Aminotransferase 13 U/L (13-39); BUN Creatinine Ratio 16.5 (10-20); Bilirubin,Total 0.4 mg/dl (0.2-1.0); Blood Urea Nitrogen 17 mg/dl (6-23); Calcium 8.5 mg/dl (8.5-10.1); Carbon Dioxide 26 mmol/L (21-32); Chloride 100 mmol/L (98-107); Est GFR (African American) 60.7 ml/min; Est GFR (Non-African American) 52.4 ml/min; Globulin 2.3 gm/dl (2.5-4.0); Glucose 110 mg/dl (70-99(Fasting)); Partial Thromboplastin Ratio 1.9; Prothrombin Time 11.1 Seconds (9.0-12.0); Sodium 132 mmol/L (136-145); Total Protein 6.2 gm/dl (6.0-8.3)
[2022-01-29 16:47] LABS: Partial Thromboplastin Time 52.8 Seconds (21.0-31.0)
[2022-01-29 16:58] LABS: Immature Granulocytes # (auto) 0.01 K/uL (0.00-0.02); Immature Granulocytes % (auto) 0.3 %; Lymphocytes # (auto) 0.38 K/uL (1.2-3.4); Lymphocytes % (auto) 12.9 %; Monocytes # (auto) 0.41 K/uL (0.11-0.59); Monocytes % (auto) 13.9 %; Neutrophils # (auto) 2.14 K/uL (1.4-6.5); Neutrophils % (auto) 72.9 %
[2022-01-29] MEDS ORDERED: OPTIRAY 320 100ml IV ONE (17:30)
[2022-01-29] MEDS ORDERED: PIPERACILLIN/TAZOBACTAM 4.5 GM/120 ML BAG IV ONE (17:41)
[2022-01-29] MEDS ORDERED: PIPERACILL/TAZOBAC CONSULT ACTIVE PRN (17:41)
--- NOTE | 2022-01-29 18:00 | CT Scan Report ---
CT abd pelvis IV con only CLINICAL HISTORY: recent abscess TECHNIQUE: Helical axial images of the abdomen and pelvis were obtained and displayed. Automated dose lowering techniques and/or adjustment according to patient size were utilized for this exam. This e xam was performed with intravenous contrast. COMPARISON: Comparison is made to CT abdomen pelvis 01/13/2022 FINDINGS: Lower chest: No acute abnormality Liver: Unremarkable. No focal lesions are seen. Gallbladder and biliary tree: Patient is status post cholecystectomy. Physiologic prominence of the b iliary ducts is noted. Trace pneumobilia is again seen. Pancreas: Unremarkable, no focal lesions. Spleen: Unremarkable. Adrenals: Unremarkable. Kidneys and ureters: A small right renal cyst is unchanged. Bladder: Unremarkable. Reproductive organs: Patient is status post hysterectomy. Bowel: Diverticulosis is seen without evidence of diverticulitis. Previously noted perirectal abscess is no longer seen, residual soft tissue stranding/thickening is seen about the rectum. Lymph nodes Retroperitoneal: Unremarkable. Mesenteric: Unremarkable. Pelvic: Unremarkable. Peritoneum: Normal. Vessels: IVC filter is seen. Atherosclerotic calcifications are seen. Varices are noted in the pelvic soft tissues. Abdominal wall: Unremarkable. Bones: Degenerative changes in the visualized spine. T12 compression deformity is unchanged. Pars def ect is seen at L5-S1. IMPRESSION: Interval improvement in previously noted perirectal abscess. No drainable fluid collection is seen al though residual soft tissue stranding is noted. ACT 112: Negative or not required by law. Electronically signed by: Magno Erickson M.D. 01/29/2022 5:58 PM
[2022-01-29 18:31] LABS: Appearance Urine Clear (Clear); Bilirubin Urine Negative (Negative); Blood Urine Negative (Negative); Color Urine Yellow; Glucose Urine UA Negative (Negative); Ketones Urine Negative (Negative); Leukocyte Esterase Urine Negative (Negative); Nitrite Urine Negative (Negative); Protein Urine Negative (Negative); Specific Gravity Urine 1.023 (1.000-1.030); Urobilinogen Urine Negative (Negative)
--- NOTE | 2022-01-29 20:38 | Surgery Consultation ---
Date of Consultation January 29, 2022 Assessment & Plan (1) Adeline-rectal abscess: Due to the patient's underlying malignancy and pancytopenia and her clinical presentation she is being admitted on the hospitalist service.: At this time there is no drainable perirectal abscess I discussed with the medical service as well as emergency room doctor and have recommended admission to the hospital for broad-spectrum antibiotics appropriate cultures We can follow the patient clinically for redevelopment of perirectal abscess and if this occurs consideration be given to drainage at that time but will likely be dependent on her blood counts. Supervising Physician Co-Signing Physician Notes Dr. Jaimespatient admitted with chills and fever history of neutropenia from chemotherapy Chronically ill-appearing female-says when she gets up to go to the bathroom she gets very dizzy and has some lower back pain There is no evidence of her most recent CT scan of fluid collection in the perirectal area She did have evidence on the last 2 CTs of fluid which apparently has resolved with medical management No plan for surgical intervention-we will continue to monitor History of Present Illness Reason for Consultation: History of perirectal abscess History of Present Illness This is a 76-year-old female with an underlying history of AML. She was previously admitted to [facility] from 01/06/2022 to 01/15/2022. During this admission patient was noted to have pancytopenia and also had a perirectal abscess. She was seen by Dr. Valladares of [facility] general surgery due to her perirectal abscess.CT scan of the abdomen pelvis on 01/10/2022 showed a 2 x 1.8 cm rim-enhancing fluid collection along the posterior wall of the rectum consistent with a perirectal abscess. Patient underwent repeat CT scan on 01/13/2022 that showed a stable appearance of the previously noted perirectal ab scess. Due to the patient's underlying hematologic condition and pancytopenia drainage of the perirectal abscess was not pursued as it was not felt to be in her best interest. She was treated with broad-spectrum antibiotics and was ultimately discharged home. The patient noted that she was initially doing well at home with improvement of her rectal pain. Patient says that she underwent chemotherapy yesterday and again today and after her session today although she did not have any fevers she developed some shakes, chills, and rigors and her oncologist felt it was in her best interest to report to the emergency department. Patient does report some back pain in her sacral area. She denies any nausea vomiting. She denies any sore throat. She denies any pain at her a port site. She denies any epistaxis or bleeding gums. She denies any abdominal pain. She denies any diarrhea or rectal bleeding. She denies any dysuria. She does note that she has some pain in her rectal area similar to what she noted during previous admission although admits that this is improved. Today in the emergency department patient had labs and imaging which I independent reviewed. Her white blood cell count was 2.9 with a neutrophil count of 2.1. Her hemoglobin and hematocrit were 7.7 and 23.2. Platelet count was 87,000. Chemistry profile showed sodium was 132. Potassium, BUN, and creatinine were all normal. Urinalysis was not indicative of infection. CT scan of the abdomen and pelvis was undertaken or patient was noted to have improvement of the previously noted perirectal abscess and no drainable fluid collections were noted. There was some residual soft tissue stranding noted. At the time of my interview she was resting comfortably in bed and she was in no distress. Allergies Allergy/AdvReac Type Severity Reaction Status Date / Time No Known Allergies Allergy Verified 01/22/22 09:04 Home Medications Medication Instructions Recorded Confirmed Type fluticasone propionate 50 2 spray INTRANASAL QAM 08/03/19 01/29/22 History mcg/actuation nasal spray,suspension (Flonase Allergy Relief) pantoprazole 40 mg tablet,delayed 40 mg PO QAM 08/03/19 01/29/22 History release (Protonix) venlafaxine 75 mg capsule,extended 75 mg PO HS 08/03/19 01/29/22 History release 24 hr (Effexor XR) diclofenac sodium 1 % topical gel 4 g TOPICAL QID PRN 10/21/19 01/29/22 History (Voltaren Arthritis Pain) fluticasone furoate 100 1 inh INHALATION QAM PRN 05/02/21 01/29/22 History mcg-vilanterol 25 mcg/dose inhalation powder (Breo Ellipta) acyclovir 400 mg tablet 400 mg PO BID 09/17/21 01/29/22 History allopurinol 300 mg tablet 300 mg PO DAILY 12/30/21 01/29/22 History cefpodoxime 200 mg tablet 200 mg PO Q12 12/30/21 01/29/22 History isavuconazonium sulfate 186 mg 186 mg PO BID 12/30/21 01/29/22 History capsule (Cresemba) levothyroxine 125 mcg tablet 125 mcg PO DAILYBB 12/30/21 01/29/22 History ondansetron HCl 8 mg tablet 8 mg PO Q8H PRN 12/30/21 01/29/22 History amiodarone 200 mg tablet 200 mg PO DAILY 01/05/22 01/29/22 History metoprolol succinate 25 mg 12.5 mg PO DAILY 01/05/22 01/29/22 History tablet,extended release 24 hr rosuvastatin 20 mg tablet 20 mg PO DAILY 01/05/22 01/29/22 History venetoclax 100 mg tablet 100 mg PO DAILY 01/05/22 01/29/22 History (Venclexta) acetaminophen 325 mg tablet 650 mg PO Q6H PRN #30 tab 01/15/22 01/29/22 Rx sennosides 8.6 mg-docusate sodium 1 tab PO QAM PRN #30 tab 01/15/22 01/29/22 Rx 50 mg tablet (Senokot-S) gabapentin 300 mg capsule 300 mg PO QID 01/29/22 01/29/22 History spironolactone 25 mg tablet 12.5 mg PO DAILY 01/29/22 01/29/22 History Patient History Medical History Acute on chronic anemia AML (acute myeloblastic leukemia) Asthma Well controlled CKD (chronic kidney disease), stage III COPD (chronic obstructive pulmonary disease) Diverticulitis Hx Esophageal reflux Essential tremor Follicular lymphoma History of DVT (deep vein thrombosis) 2007 > in setting prolonged inactivity from hospital admission HLD (hyperlipidemia) HTN (hypertension) Hypothyroidism Palliative care encounter Pancreatitis Hx Post-herpetic trigeminal neuralgia Reason for gabapentin Thoracic aortic aneurysm without rupture Ascending thoracic aorta is ectatic up to 4.4 cm (Previously measured 4.1 cm in 2012. Slowly increasing in size) per 06/2020 CTA, under surveillance by Dr. Cohn Surgical History H/O parotidectomy (11/2003) H/O: hysterectomy History of bone marrow biopsy (10/2011) Jul 2021 History of cataract surgery bilat History of colonoscopy (02/16/19) History of cystoscopy (06/02/12) History of dilatation and curettage History of ERCP (06/21/08) History of esophagogastroduodenoscopy (EGD) (03/06/16) History of excision of lesion (04/02/21) Right Superficial Parotid S/P cholecystectomy S/P insertion of IVC (inferior vena caval) filter (06/26/12) 2012 > [place] Filter Placement Right Groin Dr. Srivastava at [facility] Status post excisional biopsy (07/07/17) Left Inguinal Lymph Node Dr. Anderson at [facility] Status post fine needle aspiration (04/05/21) Left External Iliac Lymph Node under USG Dr. Coreas at [facility] Status post fine needle aspiration (02/08/19) Right Parotid Gland Lesion Family History Grandmother (Maternal) , Passed Age 52 due to Colon Cancer No problems noted. Father , Passed Age 72 due to Lung Cancer, occupation related No problems noted. Mother , Passed Age 84 of unknown cancer No problems noted. Brother , Passed Age 70 of unknown cancer No problems noted. Brother No problems noted. Daughter CLL (chronic lymphocytic leukemia) Son No problems noted. Son No problems noted. Son No problems noted. Aunt , Passed Age 70 due to Breast Cancer No problems noted. 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 How many Children do You have: 4 Feels Safe at Home: Yes Safety Concerns: Feels Safe At This Time Childhood Exposure to Second-Hand Smoke: Yes (father smoked in home) caffeine: Yes (cola daily) during the past year weight has: remained stable Dental Care, Regularly: Yes Physical Activity Frequency: Does not Exercise Assistive Devices: Cane and Walker Review of Systems Constitutional: + chills; no fever Eyes: no diplopia Ear, Nose, Mouth, Throat: no ear pain and no sore throat Respiratory: no cough and no dyspnea Cardiovascular: no chest pain Gastrointestinal: as per Subjective / HPI; no abdominal pain, no nausea, no vomiting and no diarrhea/loose stools Genitourinary: no dysuria Musculoskeletal: + back pain (Sacral pain) Integumentary: no rash Neurologic: no localized weakness Physical Exam Physical Exam: With a female nurse senior property manager present I examined the patient's rectum. There are no discrete areas of fluctuance or induration. There are no open areas or draining areas. To the right of patient's rectum at approximately the 3 o'clock position there is some slight tenderness. There is no crepitus noted in the soft tissue. The sacrum was examined and there are no open areas or sacral wounds. There is no erythema of the sacral tissue. There is no crepitus in the soft tissue. The sacrum was not painful to palpation Constitutional: WD/WN, vitals as above Eyes: Wears glasses ENMT: Ears: no hearing impairment and no external ear abnormality No evidence of mucositis or pharyngitis Neck: trachea midline Respiratory: normal respiratory effort; no respiratory distress and no labored breathing Cardiovascular: Rate/Rhythm: regular rate and regular rhythm Gastrointestinal (Abdomen): Soft, nontender, nondistended Musculoskeletal: No calf tenderness, no foot wounds Skin: no rashes Neurologic: moves all extremities Psychiatric: A+Ox3, euthymic affect Results & Data ([facility]) Vital Signs (Past 12 Hours) Vital Signs Temp Pulse Pulse Resp BP BP Pulse Ox 01/29/22 18:00 71 20 108/48 L 92 01/29/22 16:00 72 19 135/78 98 01/29/22 15:20 36.9 C 76 16 110/48 L 100 PG Care Time/CCT Total # of Minutes Spent Total Time Spent with Patient: Total time spent is greater than 50% in coordination of care (as documented) at patient's floor/unit and/or counseling patient: Coding Level of Care Code 81110 Inpt Consult Level 5 Diagnoses Adeline-rectal abscess K61.1
[2022-01-29] MEDS ORDERED: ACETAMINOPHEN 500 MG TAB PO STA (21:06)
[2022-01-29] MEDS ORDERED: ACETAMINOPHEN 500 MG TAB ONE (21:07)
[2022-01-29] MEDS ORDERED: ONDANSETRON 4 MG OD TAB PO PRN (22:39)
[2022-01-29] MEDS ORDERED: FLUTICASONE/VILANTEROL 100/25MCG 14 PUFFS/INHALER INH PRN (22:39)
[2022-01-29] MEDS ORDERED: POLYETHYLENE (MIRALAX) 17 GM PACK PO PRN (22:39)
[2022-01-29] MEDS ORDERED: SODIUM CHLORIDE 0.9% 1000ML 1,000 ML IV SCH (22:39)
[2022-01-29] MEDS ORDERED: ONDANSETRON INJ 2 MG/ML 2 ML VIAL IV PRN (22:39)
[2022-01-29] MEDS ORDERED: NITROGLYCERIN SL 0.4 MG/TAB TAB SL PRN (22:39)
[2022-01-29] MEDS ORDERED: DOCUSATE SODIUM/SENNA 50/8.6MG TAB PO PRN (22:39)
--- NOTE | 2022-01-30 | History and Physical Report ---
DATE OF ADMISSION: 01/29/2022. CHIEF COMPLAINT: Rectal pain and chills. HISTORY OF PRESENT ILLNESS: A 76-year-old female with past medical history significant for history of recurrent follicular lymphoma, currently on chemo; history of mucoepidermoid carcinoma, low-grade, status post surgical excision of the lesion of the right superficial parotid region; history of hypothyroidism; history of hypercholesterolemia; history of atrial fibrillation; history of COPD; chronic rhinitis; thoracic aortic aneurysm; hypertension; history of stenosis of left subclavian artery; gastroparesis; GERD; chronic kidney disease stage III; history of melanoma in situ; history of T12 compression fracture; osteoporosis; history of cerebral infarction; history of postherpetic trigeminal neuralgia; history of iron deficiency anemia due to chronic blood loss; history of pancytopenia; history of DVT, status post IVC filter; depression; anxiety; TIA, who lives alone, brother lives a couple of doors from her, presents with rectal pain and chills. The patient was recently in the hospital for weakness and during the hospital stay she was found to have hyponatremia, treated with IV fluids and Lasix, and also she received 5 units of PRBCs and 3 units of platelets, and during one of the blood transfusions, she developed shaking rigors, fevers, and shortness of breath. CT of abdomen and pelvis showed a 2 cm perirectal abscess. She was treated with IV antibiotics. She also had pulmonary edema at that time, and that was improved. Seen by surgery, and felt that perirectal abscess is healing and does not need I and D. At the time of discharge, she was discharged on Bactrim for 10 days. Supposed to follow up with in two weeks. The patient says last 2 to 3 days, again she is having rectal pain and back pain going down through the legs and today she was having shaking chills. That is the reason she came here. Currently, hemodynamically stable. Her CT scan showed no obvious abscess to drain. Afebrile. WBC 2.9, hemoglobin 7.7, platelets are 87, creatinine 1. Urinalysis negative. Denies any headache. No blurred visions, no earache, no runny nose, no sore throat, no cough. Appetite is okay. No difficulty swallowing. No chest pain, no shortness of breath, no nausea. Has abdominal discomfort. She was constipated, but moved her bowels thrice today, but there was no blood in stools or black stools. Normal bladder movements. Ambulates with a cane. ALLERGIES: No known drug allergies. PAST MEDICAL HISTORY: As mentioned above. PAST SURGICAL HISTORY: Bone marrow biopsy, colonoscopy, EGDs, IVC filter placement, excisional biopsy of the left inguinal lymph node, nasal endoscopy, puncture and drainage of the breast cyst, parotid tumor removed, cataracts, cholecystectomy, total abdominal hysterectomy with removal of tubes. MEDICATIONS: The patient is on Tylenol 650 mg p.o. q. 6 hours p.r.n., acyclovir 400 mg p.o. b.i.d., allopurinol 300 mg p.o. daily, amiodarone 200 mg p.o. daily, cefpodoxime 200 mg p.o. b.i.d., Cresemba 186 mg p.o. b.i.d., diclofenac sodium 4 g topical q.i.d. p.r.n., fluticasone/vilanterol 1 puff in the a.m. p.r.n., Flonase 2 sprays intranasal a.m., gabapentin 300 mg p.o. q.i.d., levothyroxine 125 mcg p.o. daily, metoprolol succinate 12.5 mg p.o. daily, Zofran 8 mg p.o. q. 8 hours p.r.n., Protonix 40 mg p.o. a.m., lovastatin 20 mg p.o. daily, Senokot S 1 tablet p.o. a.m. p.r.n., spironolactone 12.5 mg p.o. daily, Venclexta 100 mg p.o. daily, Effexor XR 75 mg p.o. at bedtime. FAMILY HISTORY: Significant for maternal aunt has breast cancer, mother has pacemaker, son has migraines, brother has hypertension and diabetes, mother has pancreatic cancer, father has lung cancer, daughter has leukemia. SOCIAL HISTORY: . No alcohol, no drug use. REVIEW OF SYSTEMS: As per HPI. Rest of review of systems is negative. PHYSICAL EXAMINATION: GENERAL: The patient is of moderate build, not in acute distress. VITAL SIGNS: Temperature 36.9, pulse 71, respiratory rate 20, blood pressure 108/48, oxygen 92% on room air. HEENT: Pupils equal, round and reactive to light. Oral mucosa moist. NECK: No JVD, no neck masses. CARDIOVASCULAR: S1 and S2 heard. Regular rate and rhythm. No murmur, no gallop. RESPIRATORY SYSTEM: Normal AP diameter. No accessory muscle use. No wheezing, no crackles. ABDOMEN: Soft, bowel sounds present. Mild discomfort. No guarding, no rigidity, no distention. CENTRAL NERVOUS SYSTEM: Cranial nerves II-XII are grossly intact, nonfocal. EXTREMITIES: Trace pedal edema, no erythema seen. LABORATORY DATA: WBC 2.9, hemoglobin 7.7, hematocrit 23.2, platelets 87. PT 11.1, INR 1, APTT 52.8. Sodium 132, potassium 4, chloride 100, bicarbonate 26, BUN 17, creatinine 1, serum glucose 110, calcium 8.5, total bilirubin 0.4, AST 13, ALT 23, alkaline phosphatase 112. Urinalysis negative. SARS-CoV-2 rapid test negative. IMAGING DATA: CT abdomen and pelvis, IV contrast only, interval improvement in previously noted perirectal abscesses. No drainable fluid collection seen, although residual soft tissue stranding is noted. EKG: Normal sinus rhythm, right bundle-branch block, left anterior fascicular block, at the rate of 73, no significant change was found. ASSESSMENT AND PLAN: This 76-year-old female presents with shaking chills and rectal pain. 1. Rectal pain and shaking chills: Recent History of perirectal abscess. On the imaging study, no obvious abscess seen. Recently treated for perirectal abscess in the hospital with IV antibiotics and discharged on 10 days of Bactrim. She was discharged on 01/15/2022. ER started on IV Zosyn, which will be continued. Surgical consultation is placed. She says she has some chills and rigors, possible early sepsis. Will monitor closely in the med tele. Gentle fluids. Follow the repeat labs in the a.m. 2. History of recurrent follicular lymphoma: Had multiple chemotherapies in the past. Current chemo as per hem/onc. 3. History of mucoepidermoid carcinoma, low-grade: She is status post surgical excision of the right superficial parotid region, follow with hem/onc. 4. Pancytopenia: Secondary to chemo and from the cancer. Hemoglobin is 7.7. Want to wait until am labs for transfusion . Will follow the repeat labs in the a.m. Follow up with hem/onc. 5. History of deep venous thrombosis: Status post IVC filter, but not on anticoagulation secondary to thrombocytopenia. 6. History of paroxysmal atrial fibrillation, rate controlled with amiodarone and metoprolol, not on anticoagulation secondary to thrombocytopenia. 7. History of hypothyroidism: On Synthroid. 8. Deep venous thrombosis: On sequential compression devices. CODE STATUS: Full code as per my discussion today with the patient. DISPOSITION: Admit to med [facility]. PT/OT prior to discharge. Social service to help with discharge planning. Job ID: [id number] [facility] HOSPITALDiego
[2022-01-30] MEDS: PIPERACILLIN/TAZOBACTAM 4.5 GM in DEXTROSE 5% 100 ML IV SCH ×2 (00:24→07:36)
[2022-01-30] MEDS: HYDROmorphone INJ 0.5 MG/0.5 ML SYR IV PRN ×5 (01:50→23:52)
[2022-01-30] MEDS: LEVOTHYROXINE SODIUM 125 MCG TABLET PO SCH (05:28)
[2022-01-30] MEDS: ACETAMINOPHEN 325 MG TAB PO PRN ×2 (05:48→16:35)
[2022-01-30 06:25] LABS: BUN Creatinine Ratio 13.4 (10-20); Calcium 8.1 mg/dl (8.5-10.1); Creatinine Clr Calc Pharmacy 43.9 ml/min; Est GFR (African American) 54.9 ml/min; Est GFR (Non-African American) 47.3 ml/min; Magnesium 2.1 mg/dl (1.7-2.4); Potassium 4.2 mmol/L (3.5-5.1)
[2022-01-30 06:27] LABS: Hemoglobin 6.9 g/dL (12.0-16.0); Mean Corpuscular Hemoglobin 28.5 pg (25-34); Mean Corpuscular Hgb Conc 32.9 g/dL (32-36); Mean Corpuscular Volume 86.8 fL (80-100); Mean Platelet Volume 9.3 fL (7.4-10.4); Platelet Count 75 K/uL (130-400); RDW Coefficient of Variation 14.8 % (11.5-14.5); RDW Standard Deviation 47.4 fL (36.4-46.3); Red Blood Count 2.42 M/uL (4.2-5.4)
[2022-01-30] MEDS ORDERED: SODIUM CHLORIDE 0.9% 250 ML IV PRN (06:49)
[2022-01-30 07:13] LABS: Eosinophils # (auto) 0.02 K/uL (0-0.5); Immature Granulocytes # (auto) 0.01 K/uL (0.00-0.02); Immature Granulocytes % (auto) 0.5 %; Lymphocytes # (auto) 0.62 K/uL (1.2-3.4); Monocytes # (auto) 0.24 K/uL (0.11-0.59); Neutrophils # (auto) 1.11 K/uL (1.4-6.5); Neutrophils % (auto) 55.5 %; RBC Morphology Unremarkable
[2022-01-30] MEDS: FLUTICASONE PROPIONATE NA SPR 16 GM BTL SCH (07:21)
[2022-01-30] MEDS: allopurinoL 300 MG TAB PO SCH (07:22)
[2022-01-30] MEDS: GABAPENTIN 300 MG CAP PO SCH ×4 (07:22→20:32)
[2022-01-30] MEDS: SPIRONOLACTONE 12.5 MG TAB PO SCH (07:22)
[2022-01-30] MEDS: PANTOprazole 40 MG TAB PO SCH (07:22)
[2022-01-30] MEDS: ROSUVASTATIN CALCIUM 20 MG TAB PO SCH (07:22)
[2022-01-30] MEDS: AMIODARONE 200 MG TAB PO SCH (07:23)
[2022-01-30] MEDS: METOPROLOL SUCC 25MG EXT REL TAB PO SCH (07:25)
[2022-01-30] MEDS: ACYCLOVIR 400 MG TAB PO SCH ×2 (07:26→20:32)
[2022-01-30] MEDS ORDERED: ACETAMINOPHEN 325 MG TAB PO ONE ×2 (07:30→08:14)
[2022-01-30] MEDS: PIPERACILLIN/TAZOBACTAM 3.375 GM in DEXTROSE 5% 100 ML IV SCH ×2 (08:06→22:30)
[2022-01-30] MEDS ORDERED: diphenhydrAMINE Capsule 25 MG CAP PO ONE (08:12)
[2022-01-30] MEDS: DICLOFENAC SOD 1% GEL 100 GM TUBE EXT PRN ×2 (10:22→16:36)
[2022-01-30] MEDS: CYCLOBENZAPRINE HCL 5 MG TAB PO PRN ×2 (10:22→22:32)
[2022-01-30] MEDS: ISAVUCONAZONIUM 186 MG PO SCH ×2 (10:23→20:35)
[2022-01-30] MEDS: CEFPODOXIME 200 MG PO SCH ×2 (10:23→20:39)
[2022-01-30] MEDS: VENETOCLAX PO SCH (10:23)
--- NOTE | 2022-01-30 11:43 | Hospitalist Progress Note ---
Date of Service January 30, 2022 Assessment & Plan (1) Rigors: (2) Pancytopenia: Plan: Rectal pain Shaking chills Recent rectal abscess that was treated medically CT abd/P this admission did not show any drainable fluid collection although residual soft tissue stranding is noted Surgery evaluation noted Continue IV antibiotics Follow up blood cultures Pancytopenia H/o recurrent follicular lymphoma Hb is 6.9 today. Will get 1 PRBC H/o pAF H/o DVT (left leg) S/p IVC filter Not on anticoagulation due to anemia and thrombocytopenia Encourage activity. SCD Continue home amiodarone and metoprolol Continue levothyroxine for hypothyroidism Admission and Anticipated Discharge Date Admission Date: January 29, 2022 Subjective 76-year-old woman with history of recurrent follicular lymphoma on chemo with thyroidism, A. fib COPD, thoracic aortic aneurysm, hypertension and a host of other medical problems who presented with chills, leg pains and rectal pain. Was recently diagnosed with rectal abscess that was managed medically 2 weeks ago. Patient seen and examined. Patient reports pains in the legs associated with spasms that go up to the lower trunk, associated with diaphoresis. Reports improving rectal pains. Denied any bloody bowel movements. Reported some nausea earlier that is resolved. Denies any headache, dizziness Denies any cough, chest pain, breath Denies any dysuria, frequency or urgency Reports some left leg soreness. Has chronic left leg swelling from DVT Physical Exam Constitutional: + well hydrated; no acute distress Eyes: PERRL, conjunctivae normal, anicteric sclerae ENMT: external ear and nose normal, oropharynx normal Respiratory: normal respiratory effort, lungs clear to auscultation Cardiovascular: Rate/Rhythm: regular rate and regular rhythm S1 S2 Gastrointestinal (Abdomen): normal bowel sounds, soft, nontender, no h epatosplenomegaly Musculoskeletal: Left leg edema Neurologic: PERRL, EOMI, accommodation nl, no face palsy, no dysarthria Psychiatric: A+Ox3, euthymic affect Results & Data Results & Data ([facility]) Vital Signs (Past 12 Hours) Vital Signs Temp Pulse Pulse Resp BP BP BP 01/30/22 11:24 36.7 C 65 18 95/52 L 01/30/22 11:09 36.6 C 62 18 104/61 01/30/22 10:50 36.5 C 63 18 89/53 L 01/30/22 07:31 37.0 C 65 92/52 L 01/30/22 03:05 69 01/30/22 02:58 36.5 C 72 18 105/69 Pulse Ox 01/30/22 11:24 99 01/30/22 11:09 93 01/30/22 10:50 95 01/30/22 07:31 97 01/30/22 03:05 01/30/22 02:58 95 Laboratory Results Abnormal lab results 01/29/22 01/29/22 01/29/22 Range/Units 16:04 16:04 16:04 WBC 2.94 L (4.8-10.8) K/uL RBC 2.68 L (4.2-5.4) M/uL Hgb 7.7 L (12.0-16.0) g/dL Hct 23.2 L (37-47) % RDW Std Deviation (36.4-46.3) fL RDW Coeff of Rosamaria 14.7 H (11.5-14.5) % Plt Count 87 L (130-400) K/uL Neut # (Auto) (1.4-6.5) K/uL Lymph # (Auto) 0.38 L (1.2-3.4) K/uL APTT 52.8 H* (21.0-31.0) Seconds Sodium 132 L (136-145) mmol/L Glucose 110 H (70-99(Fasting)) mg/dl Calcium (8.5-10.1) mg/dl Alkaline Phosphatase 112 H (34-104) U/L Globulin 2.3 L (2.5-4.0) gm/dl Crossmatch 01/30/22 01/30/22 01/30/22 Range/Units 05:25 05:25 07:32 WBC 2.00 L (4.8-10.8) K/uL RBC 2.42 L (4.2-5.4) M/uL Hgb 6.9 L* (12.0-16.0) g/dL Hct 21.0 L (37-47) % RDW Std Deviation 47.4 H (36.4-46.3) fL RDW Coeff of Rosamaria 14.8 H (11.5-14.5) % Plt Count 75 L (130-400) K/uL Neut # (Auto) 1.11 L (1.4-6.5) K/uL Lymph # (Auto) 0.62 L (1.2-3.4) K/uL APTT (21.0-31.0) Seconds Sodium 134 L (136-145) mmol/L Glucose 104 H (70-99(Fasting)) mg/dl Calcium 8.1 L (8.5-10.1) mg/dl Alkaline Phosphatase (34-104) U/L Globulin (2.5-4.0) gm/dl Crossmatch See Detail
[2022-01-30] MEDS ORDERED: FUROSEMIDE INJ 20 MG/2 ML VIAL IV ONE (13:28)
[2022-01-30] MEDS: FUROSEMIDE INJ 20 MG/2 ML VIAL IV ONE ×2 (13:29→13:35)
[2022-01-30] MEDS ORDERED: Nursing to Pharmacy Communication SCH (15:00)
[2022-01-30] MEDS: VENLAFAXINE HCL XR 75 MG CAPXR PO SCH (20:36)
[2022-01-31] MEDS ORDERED: CYCLOBENZAPRINE HCL 5 MG TAB PO STA (03:02)
[2022-01-31] MEDS: PIPERACILLIN/TAZOBACTAM 3.375 GM in DEXTROSE 5% 100 ML IV SCH ×3 (04:41→21:40)
[2022-01-31] MEDS: HYDROmorphone INJ 0.5 MG/0.5 ML SYR IV PRN (05:36)
[2022-01-31] MEDS: LEVOTHYROXINE SODIUM 125 MCG TABLET PO SCH (05:37)
--- NOTE | 2022-01-31 05:44 | Electrocardiogram Report ---
Test Reason : Blood Pressure : / mmHG Vent. Rate : 073 BPM Atrial Rate : 073 BPM P-R Int : 184 ms QRS Dur : 140 ms QT Int : 442 ms P-R-T Axes : 051 -58 034 degrees QTc Int : 486 ms Normal sinus rhythm Right bundle branch block Left anterior fascicular block Bifascicular block Abnormal ECG When compared with ECG of 05-JAN-2022 23:12, No significant change was found Confirmed by Joss Pagan ([id number] on 01/31/2022 5:44:29 AM Referred By: Walter Saucedo Confirmed By:Joss Pagan
[2022-01-31] MEDS: HEPARIN 100 UNIT/ML 5ML FLUSH FLUSH PRN ×2 (06:02→08:12)
[2022-01-31 06:20] LABS: Hematocrit (blood only) 28.7 % (37-47); Hemoglobin 9.7 g/dL (12.0-16.0); Mean Corpuscular Hemoglobin 28.7 pg (25-34); Mean Corpuscular Hgb Conc 33.8 g/dL (32-36); Mean Corpuscular Volume 84.9 fL (80-100); RDW Coefficient of Variation 15.1 % (11.5-14.5); RDW Standard Deviation 46.9 fL (36.4-46.3); Red Blood Count 3.38 M/uL (4.2-5.4); White Blood Count 3.52 K/uL (4.8-10.8)
[2022-01-31 06:24] LABS: Mean Platelet Volume 9.9 fL (7.4-10.4); Platelet Count 78 K/uL (130-400)
[2022-01-31 06:47] LABS: Calcium 8.3 mg/dl (8.5-10.1); Creatinine Clr Calc Pharmacy 33.7 ml/min; Est GFR (African American) 39.8 ml/min; Est GFR (Non-African American) 34.4 ml/min; Potassium 4.1 mmol/L (3.5-5.1)
--- NOTE | 2022-01-31 07:56 | Surgery Progress Note ---
Date of Service January 31, 2022 Assessment & Plan (1) Adeline-rectal abscess: Plan: No evidence of recurrent or worsening perirectal abscess No plan for surgical intervention No specific etiology for source of an infection Admission and Anticipated Discharge Date Admission Date: January 29, 2022 Subjective Patient is in bed awake and alert She has been having dizziness and near syncopal episodes Apparently at bedrest She does apparently develop thigh pain which radiates up into the lower back No perirectal/perianal pain Review of Systems Review of Systems: All systems reviewed & are unremarkable except as noted in HPI & below Physical Exam Physical Exam: Patient is awake and alert Constitutional: + ill appearing; no acute distress Eyes: + anicteric sclerae Respiratory: normal respiratory effort; no respiratory distress Cardiovascular: Rate/Rhythm: not tachycardic Gastrointestinal (Abdomen): Inspection/Auscultation: abdomen not distended Musculoskeletal: Head/Neck/Chest: head atraumatic Skin: no rashes, warm and dry Neurologic: awake Psychiatric: Orientation: alert Results & Data ([facility]) Vital Signs (Past 12 Hours) Vital Signs Temp Pulse Pulse Resp BP BP Pulse Ox 01/31/22 07:49 36.5 C 70 20 108/64 93 01/31/22 07:20 67 01/31/22 03:00 36.8 C 63 20 133/65 100 01/31/22 00:18 70 01/30/22 21:25 37 C 70 16 104/67 98 01/30/22 21:23 36.7 C 77 20 103/67 95 01/30/22 20:23 36.6 C 74 20 95/62 L 90 PG Care Time/CCT Total # of Minutes Spent Total Time Spent with Patient: Total time spent is greater than 50% in coordination of care (as documented) at patient's floor/unit and/or counseling patient: Coding Level of Care Code 59658 Inpt Consult Level 3 Diagnoses Adeline-rectal abscess K61.1
[2022-01-31] MEDS: ACETAMINOPHEN 325 MG TAB PO PRN ×3 (08:03→21:31)
[2022-01-31] MEDS: GABAPENTIN 300 MG CAP PO SCH ×4 (08:04→21:33)
[2022-01-31] MEDS: ACYCLOVIR 400 MG TAB PO SCH ×2 (08:04→21:33)
[2022-01-31] MEDS: AMIODARONE 200 MG TAB PO SCH (08:05)
[2022-01-31] MEDS: ROSUVASTATIN CALCIUM 20 MG TAB PO SCH (08:05)
[2022-01-31] MEDS: METOPROLOL SUCC 25MG EXT REL TAB PO SCH (08:05)
[2022-01-31] MEDS: allopurinoL 300 MG TAB PO SCH (08:05)
[2022-01-31] MEDS: PANTOprazole 40 MG TAB PO SCH (08:06)
[2022-01-31] MEDS: ISAVUCONAZONIUM 186 MG PO SCH ×2 (08:07→21:37)
[2022-01-31] MEDS: CEFPODOXIME 200 MG PO SCH (08:07)
[2022-01-31] MEDS: VENETOCLAX PO SCH (08:07)
[2022-01-31] MEDS: FLUTICASONE PROPIONATE NA SPR 16 GM BTL SCH (08:08)
[2022-01-31] MEDS: DICLOFENAC SOD 1% GEL 100 GM TUBE EXT PRN ×3 (08:17→21:36)
--- NOTE | 2022-01-31 10:18 | Hospitalist Progress Note ---
Date of Service January 31, 2022 Assessment & Plan (1) Rigors: (2) Pancytopenia: Plan: Rectal pain Shaking chills Recent rectal abscess that was treated medically CT abd/P this admission did not show any drainable fluid collection although residual soft tissue stranding is noted Surgery evaluation noted Continue IV antibiotics Blood cultures negative so far Pancytopenia H/o recurrent follicular lymphoma, AML, chemotherapy Got 2 PRBC yesterday. Hb is 9.7 today H/o pAF H/o DVT (left leg) S/p IVC filter Not on anticoagulation due to anemia and thrombocytopenia SCD Continue home amiodarone and metoprolol Continue levothyroxine for hypothyroidism Encourage activity today PT/OT evaluation Has mild IBIS today with Cr 1.46 Encourage fluid intake. Home spironolactone held this morning. Will repeat BMP this afternoon Admission and Anticipated Discharge Date Admission Date: January 29, 2022 Subjective 76-year-old woman with history of recurrent follicular lymphoma on chemo with thyroidism, A. fib COPD, thoracic aortic aneurysm, hypertension and a host of other medical problems who presented with chills, leg pains and rectal pain. Was recently diagnosed with rectal abscess that was managed medically 2 weeks ago. Patient seen and examined. Patient reported pains in the thighs associated with spasms that go up to tail bone. RN reported some improvement with flexeril Had a near syncopal episode yesterday while walking back from bathroom after urinating. Did not fall or pass out Reports feeling better today Denied any bloody BM Denies any headache, dizziness Denies any cough, chest pain, breath Denies any dysuria, frequency or urgency Physical Exam Constitutional: + well hydrated; no acute distress Eyes: PERRL, conjunctivae normal, anicteric sclerae ENMT: external ear and nose normal, oropharynx normal Respiratory: normal respiratory effort, lungs clear to auscultation Cardiovascular: Rate/Rhythm: regular rate and regular rhythm S1 S2 Gastrointestinal (Abdomen): normal bowel sounds, soft, nontender, no hepatosplenomegaly Musculoskeletal: Trace left leg edema Neurologic: PERRL, EOMI, accommodation nl, no face palsy, no dysarthria Psychiatric: A+Ox3, euthymic affect Results & Data Results & Data ([facility]) Vital Signs (Past 12 Hours) Vital Signs Temp Pulse Pulse Resp BP Pulse Ox 01/31/22 07:49 36.5 C 70 20 108/64 93 01/31/22 07:20 67 01/31/22 03:00 36.8 C 63 20 133/65 100 01/31/22 00:18 70 Laboratory Results Abnormal lab results 01/30/22 01/31/22 01/31/22 Range/Units 07:32 05:56 05:56 WBC 3.52 L (4.8-10.8) K/uL RBC 3.38 L (4.2-5.4) M/uL Hgb 9.7 L (12.0-16.0) g/dL Hct 28.7 L (37-47) % RDW Std Deviation 46.9 H (36.4-46.3) fL RDW Coeff of Rosamaria 15.1 H (11.5-14.5) % Plt Count 78 L (130-400) K/uL Sodium 131 L (136-145) mmol/L Creatinine 1.46 H D (0.6-1.2) mg/dl Glucose 136 H (70-99(Fasting)) mg/dl Calcium 8.3 L (8.5-10.1) mg/dl Crossmatch See Detail
[2022-01-31] MEDS: CYCLOBENZAPRINE HCL 5 MG TAB PO PRN (11:25)
[2022-01-31 15:51] LABS: BUN Creatinine Ratio 14.8 (10-20); Calcium 7.9 mg/dl (8.5-10.1); Creatinine Clr Calc Pharmacy 36.5 ml/min; Est GFR (African American) 43.8 ml/min; Est GFR (Non-African American) 37.8 ml/min; Potassium 4.5 mmol/L (3.5-5.1)
[2022-01-31] MEDS: oxyCODONE HCL IR 5 MG TAB (IMMEDIATE RELEASE) PO PRN (17:07)
[2022-01-31] MEDS: VENLAFAXINE HCL XR 75 MG CAPXR PO SCH (21:34)
[2022-02-01] MEDS: oxyCODONE HCL IR 5 MG TAB (IMMEDIATE RELEASE) PO PRN ×2 (01:01→21:11)
[2022-02-01] MEDS: PIPERACILLIN/TAZOBACTAM 3.375 GM in DEXTROSE 5% 100 ML IV SCH ×3 (05:00→21:22)
[2022-02-01] MEDS: CYCLOBENZAPRINE HCL 5 MG TAB PO PRN ×3 (05:17→21:12)
[2022-02-01] MEDS: LEVOTHYROXINE SODIUM 125 MCG TABLET PO SCH (06:19)
[2022-02-01] MEDS: ACYCLOVIR 400 MG TAB PO SCH ×2 (07:57→21:13)
[2022-02-01] MEDS: ROSUVASTATIN CALCIUM 20 MG TAB PO SCH (07:57)
[2022-02-01] MEDS: GABAPENTIN 300 MG CAP PO SCH ×4 (07:57→21:13)
[2022-02-01] MEDS: PANTOprazole 40 MG TAB PO SCH (07:57)
[2022-02-01] MEDS: METOPROLOL SUCC 25MG EXT REL TAB PO SCH (07:57)
[2022-02-01] MEDS: allopurinoL 300 MG TAB PO SCH (07:58)
[2022-02-01] MEDS: AMIODARONE 200 MG TAB PO SCH (07:58)
[2022-02-01] MEDS: FLUTICASONE PROPIONATE NA SPR 16 GM BTL SCH (08:05)
[2022-02-01 08:37] LABS: Hematocrit (blood only) 26.7 % (37-47); Hemoglobin 8.9 g/dL (12.0-16.0); Mean Corpuscular Hemoglobin 28.4 pg (25-34); Mean Corpuscular Hgb Conc 33.3 g/dL (32-36); Mean Corpuscular Volume 85.3 fL (80-100); RDW Coefficient of Variation 15.4 % (11.5-14.5); RDW Standard Deviation 48.2 fL (36.4-46.3); Red Blood Count 3.13 M/uL (4.2-5.4); White Blood Count 2.62 K/uL (4.8-10.8)
[2022-02-01 09:05] LABS: Mean Platelet Volume 9.7 fL (7.4-10.4); Platelet Count 71 K/uL (130-400)
[2022-02-01 09:08] LABS: Eosinophils # (auto) 0.01 K/uL (0-0.5); Eosinophils % (auto) 0.4 %; Immature Granulocytes # (auto) 0.01 K/uL (0.00-0.02); Immature Granulocytes % (auto) 0.4 %; Lymphocytes # (auto) 0.42 K/uL (1.2-3.4); Monocytes # (auto) 0.18 K/uL (0.11-0.59); Monocytes % (auto) 6.9 %; Neutrophils % (auto) 76.3 %
[2022-02-01] MEDS: ACETAMINOPHEN 325 MG TAB PO PRN (09:17)
[2022-02-01 09:18] LABS: BUN Creatinine Ratio 16.4 (10-20); Creatinine Clr Calc Pharmacy 44.7 ml/min; Est GFR (African American) 56.1 ml/min; Est GFR (Non-African American) 48.4 ml/min; Potassium 4.3 mmol/L (3.5-5.1)
[2022-02-01] MEDS: ISAVUCONAZONIUM 186 MG PO SCH ×2 (09:18→17:35)
[2022-02-01] MEDS: VENETOCLAX PO SCH ×2 (09:18→17:33)
--- NOTE | 2022-02-01 10:08 | Hospitalist Progress Note ---
Date of Service February 01, 2022 Assessment & Plan (1) Rigors: (2) Pancytopenia: Plan: Presented with chills, Rectal pain Recent rectal abscess that was treated medically CT abd/P this admission did not show any drainable fluid collection although residual soft tissue stranding is noted Surgery evaluation noted Continue IV antibiotics. Plan to treat for 7 days Blood cultures negative so far Pancytopenia H/o recurrent follicular lymphoma, AML, chemotherapy Got 2 PRBC on 01/30/22. Hb is 8.9 today H/o pAF H/o DVT (left leg) S/p IVC filter Not on anticoagulation due to anemia and thrombocytopenia SCD Continue home amiodarone and metoprolol Continue levothyroxine for hypothyroidism Encourage activity today Awaiting PT/OT evaluation Mild IBIS with Cr 1.46 yesterday Hyponatremia, chronic Now resolved Resume home spironolactone Admission and Anticipated Discharge Date Admission Date: January 29, 2022 Subjective 76-year-old woman with history of recurrent follicular lymphoma on chemo with thyroidism, A. fib COPD, thoracic aortic aneurysm, hypertension and a host of other medical problems who presented with chills, leg pains and rectal pain. Was recently diagnosed with rectal abscess that was managed medically 2 weeks prior. Patient seen and examined. Still reports spasms in medial thighs that go up to tail bone. Reports some muscle soreness with that. Reports some relief with flexeril Report constipation. Yet to have a BM but passing flatus Denied abd pain, nausea, vomiting Denies any headache, dizziness Denies any cough, chest pain, breath Denies any dysuria, frequency or urgency Physical Exam Constitutional: + well hydrated; no acute distress Eyes: PERRL, conjunctivae normal, anicteric sclerae ENMT: external ear and nose normal, oropharynx normal Respiratory: normal respiratory effort, lungs clear to auscultation Cardiovascular: Rate/Rhythm: regular rate and regular rhythm S1 S2 Gastrointestinal (Abdomen): normal bowel sounds, soft, nontender, no hepatosplenomegaly Musculoskeletal: Trace left leg edema Neurologic: PERRL, EOMI, accommodation nl, no face palsy, no dysarthria Psychiatric: A+Ox3, euthymic affect Results & Data Results & Data ([facility]) Vital Signs (Past 12 Hours) Vital Signs Temp Pulse Pulse Resp BP Pulse Ox 02/01/22 07:45 36.5 C 62 18 121/72 95 04/15/22 03:19 36.5 C 60 16 101/62 96 01/31/22 23:11 60 01/31/22 23:10 36.5 C 61 18 108/59 L 96 Laboratory Results Abnormal lab results 01/31/22 02/01/22 02/01/22 Range/Units 15:12 08:04 08:04 WBC 2.62 L (4.8-10.8) K/uL RBC 3.13 L (4.2-5.4) M/uL Hgb 8.9 L (12.0-16.0) g/dL Hct 26.7 L (37-47) % RDW Std Deviation 48.2 H (36.4-46.3) fL RDW Coeff of Rosamaria 15.4 H (11.5-14.5) % Plt Count 71 L (130-400) K/uL Lymph # (Auto) 0.42 L (1.2-3.4) K/uL Sodium 129 L 131 L (136-145) mmol/L Chloride 97 L (98-107) mmol/L Creatinine 1.35 H (0.6-1.2) mg/dl Glucose 141 H 142 H (70-99(Fasting)) mg/dl Calcium 7.9 L 8.0 L (8.5-10.1) mg/dl
[2022-02-01] MEDS: VENLAFAXINE HCL XR 75 MG CAPXR PO SCH (21:14)
[2022-02-01] MEDS: DICLOFENAC SOD 1% GEL 100 GM TUBE EXT PRN (21:14)
[2022-02-02] MEDS: oxyCODONE HCL IR 5 MG TAB (IMMEDIATE RELEASE) PO PRN ×3 (05:42→21:54)
[2022-02-02] MEDS: LEVOTHYROXINE SODIUM 125 MCG TABLET PO SCH (05:42)
[2022-02-02 05:50] LABS: Hematocrit (blood only) 28.3 % (37-47); Hemoglobin 9.2 g/dL (12.0-16.0); Mean Corpuscular Hgb Conc 32.5 g/dL (32-36); RDW Coefficient of Variation 15.2 % (11.5-14.5); Red Blood Count 3.29 M/uL (4.2-5.4); White Blood Count 2.79 K/uL (4.8-10.8)
[2022-02-02] MEDS: PIPERACILLIN/TAZOBACTAM 3.375 GM in DEXTROSE 5% 100 ML IV SCH ×3 (05:55→21:58)
[2022-02-02] MEDS: CYCLOBENZAPRINE HCL 5 MG TAB PO PRN ×2 (06:02→18:21)
[2022-02-02 06:08] LABS: Mean Platelet Volume 8.9 fL (7.4-10.4); Platelet Count 66 K/uL (130-400)
[2022-02-02 06:09] LABS: Platelet Estimate Decreased (Normal)
[2022-02-02 06:12] LABS: BUN Creatinine Ratio 14.5 (10-20); Calcium 8.3 mg/dl (8.5-10.1); Est GFR (African American) 52.1 ml/min; Est GFR (Non-African American) 44.9 ml/min; Potassium 4.1 mmol/L (3.5-5.1)
[2022-02-02] MEDS: ACETAMINOPHEN 325 MG TAB PO PRN ×2 (08:36→17:14)
[2022-02-02] MEDS: allopurinoL 300 MG TAB PO SCH (08:37)
[2022-02-02] MEDS: SPIRONOLACTONE 12.5 MG TAB PO SCH (08:37)
[2022-02-02] MEDS: PANTOprazole 40 MG TAB PO SCH (08:37)
[2022-02-02] MEDS: METOPROLOL SUCC 25MG EXT REL TAB PO SCH (08:37)
[2022-02-02] MEDS: AMIODARONE 200 MG TAB PO SCH (08:37)
[2022-02-02] MEDS: DICLOFENAC SOD 1% GEL 100 GM TUBE EXT PRN (08:37)
[2022-02-02] MEDS: ACYCLOVIR 400 MG TAB PO SCH ×2 (08:37→21:54)
[2022-02-02] MEDS: ROSUVASTATIN CALCIUM 20 MG TAB PO SCH (08:37)
[2022-02-02] MEDS: FLUTICASONE PROPIONATE NA SPR 16 GM BTL SCH (08:37)
[2022-02-02] MEDS: GABAPENTIN 300 MG CAP PO SCH ×4 (08:38→21:55)
[2022-02-02] MEDS: POLYETHYLENE (MIRALAX) 17 GM PACK PO SCH (08:41)
[2022-02-02] MEDS: DOCUSATE SODIUM/SENNA 50/8.6MG TAB PO SCH (08:42)
--- NOTE | 2022-02-02 10:24 | Hospitalist Progress Note ---
Date of Service February 02, 2022 Assessment & Plan (1) Rigors: (2) Pancytopenia: Plan: Presented with chills, Rectal pain Recent rectal abscess that was treated medically CT abd/P this admission did not show any drainable fluid collection although residual soft tissue stranding is noted Surgery evaluation noted Continue IV antibiotics. Plan to treat for 7 days Blood cultures negative so far Continue flexeril prn muscle spasm Miralax scheduled Continue senokot. Pancytopenia H/o recurrent follicular lymphoma, AML, chemotherapy Got 2 PRBC on 01/30/22. Hb is 9.2 today H/o pAF H/o DVT (left leg) S/p IVC filter Not on anticoagulation due to anemia and thrombocytopenia SCD Continue home amiodarone and metoprolol Continue levothyroxine for hypothyroidism Encourage activity today Awaiting PT/OT evaluation Mild IBIS, resolved Hyponatremia, chronic Possible dc in 24-48h Admission and Anticipated Discharge Date Admission Date: January 29, 2022 Subjective 76-year-old woman with history of recurrent follicular lymphoma on chemo with thyroidism, A. fib COPD, thoracic aortic aneurysm, hypertension and a host of other medical problems who presented with chills, leg pains and rectal pain. Was recently diagnosed with rectal abscess that was managed medically 2 weeks prior. Patient seen and examined. Still reports spasms in medial thighs but improved with flexeril Denied any rectal pain today Still has constipation. Yet to have a BM but passing flatus Denied abd pain, nausea, vomiting Denies any headache, dizziness Denies any cough, chest pain, breath Denies any dysuria, frequency or urgency Physical Exam Constitutional: + well hydrated; no acute distress Eyes: PERRL, conjunctivae normal, anicteric sclerae ENMT: external ear and nose normal, oropharynx normal Respiratory: normal respiratory effort, lungs clear to auscultation Cardiovascular: Rate/Rhythm: regular rate and regular rhythm S1 S2 Gastrointestinal (Abdomen): normal bowel sounds, soft, nontender, no hepatosplenomegaly Musculoskeletal: no cyanosis or clubbing, extremities motor strength 5/5 Neurologic: PERRL, EOMI, accommodation nl, no face palsy, no dysarthria Psychiatric: A+Ox3, euthymic affect Results & Data Results & Data ([facility]) Vital Signs (Past 12 Hours) Vital Signs Temp Pulse Pulse Resp BP Pulse Ox 02/02/22 07:31 37.0 C 65 18 123/69 94 02/02/22 03:59 36.5 C 66 18 130/75 94 02/01/22 23:28 37 C 65 18 130/71 96 02/01/22 23:02 63 Laboratory Results Abnormal lab results 02/02/22 02/02/22 Range/Units 05:38 05:38 WBC 2.79 L (4.8-10.8) K/uL RBC 3.29 L (4.2-5.4) M/uL Hgb 9.2 L (12.0-16.0) g/dL Hct 28.3 L (37-47) % RDW Std Deviation 48.0 H (36.4-46.3) fL RDW Coeff of Rosamraia 15.2 H (11.5-14.5) % Plt Count 66 L (130-400) K/uL Platelet Estimate Decreased L (Normal) Sodium 132 L (136-145) mmol/L Glucose 128 H (70-99(Fasting)) mg/dl Calcium 8.3 L (8.5-10.1) mg/dl
[2022-02-02] MEDS: ISAVUCONAZONIUM 186 MG PO SCH (17:16)
[2022-02-02] MEDS: VENETOCLAX PO SCH (17:17)
[2022-02-02] MEDS: VENLAFAXINE HCL XR 75 MG CAPXR PO SCH (21:54)
[2022-02-03] MEDS: LEVOTHYROXINE SODIUM 125 MCG TABLET PO SCH (05:21)
[2022-02-03] MEDS: PIPERACILLIN/TAZOBACTAM 3.375 GM in DEXTROSE 5% 100 ML IV SCH (05:21)
[2022-02-03 06:16] LABS: Hematocrit (blood only) 25.4 % (37-47); Hemoglobin 8.4 g/dL (12.0-16.0); Mean Corpuscular Hemoglobin 28.7 pg (25-34); Mean Corpuscular Hgb Conc 33.1 g/dL (32-36); Mean Corpuscular Volume 86.7 fL (80-100); RDW Coefficient of Variation 15.2 % (11.5-14.5); RDW Standard Deviation 48.6 fL (36.4-46.3); Red Blood Count 2.93 M/uL (4.2-5.4); White Blood Count 1.97 K/uL (4.8-10.8)
[2022-02-03 06:44] LABS: BUN Creatinine Ratio 15.5 (10-20); Calcium 8.2 mg/dl (8.5-10.1); Creatinine Clr Calc Pharmacy 51.3 ml/min; Est GFR (African American) 65.3 ml/min; Est GFR (Non-African American) 56.3 ml/min; Potassium 4.4 mmol/L (3.5-5.1)
[2022-02-03 06:46] LABS: Mean Platelet Volume 9.3 fL (7.4-10.4); Platelet Count 60 K/uL (130-400); Platelet Estimate Decreased (Normal)
[2022-02-03] MEDS: FLUTICASONE PROPIONATE NA SPR 16 GM BTL SCH (08:10)
[2022-02-03] MEDS: METOPROLOL SUCC 25MG EXT REL TAB PO SCH (08:11)
[2022-02-03] MEDS: ACYCLOVIR 400 MG TAB PO SCH (08:11)
[2022-02-03] MEDS: GABAPENTIN 300 MG CAP PO SCH (08:11)
[2022-02-03] MEDS: CYCLOBENZAPRINE HCL 5 MG TAB PO PRN (08:11)
[2022-02-03] MEDS: SPIRONOLACTONE 12.5 MG TAB PO SCH (08:12)
[2022-02-03] MEDS: DOCUSATE SODIUM/SENNA 50/8.6MG TAB PO SCH (08:12)
[2022-02-03] MEDS: POLYETHYLENE (MIRALAX) 17 GM PACK PO SCH (08:12)
[2022-02-03] MEDS: allopurinoL 300 MG TAB PO SCH (08:12)
[2022-02-03] MEDS: PANTOprazole 40 MG TAB PO SCH (08:12)
[2022-02-03] MEDS: AMIODARONE 200 MG TAB PO SCH (08:12)
[2022-02-03] MEDS: ACETAMINOPHEN 325 MG TAB PO PRN (09:14)
[2022-02-03] MEDS: ROSUVASTATIN CALCIUM 20 MG TAB PO SCH (09:15)
[2022-02-03] MEDS: HEPARIN 100 UNIT/ML 5ML FLUSH FLUSH PRN (09:16)
[2022-02-03 11:50] VITALS: TEMP 98.2; O2SAT 96
--- NOTE | 2022-02-03 12:12 | Discharge Summary ---
Date of Service February 03, 2022 Admission HPI Per Admitting Provider A 76-year-old female with past medical history significant for history of recurrent follicular lymphoma, currently on chemo; history of mucoepidermoid carcinoma, low-grade, status post surgical excision of the lesion of the right superficial parotid region; history of hypothyroidism; history of hypercholesterolemia; history of atrial fibrillation; history of COPD; chronic rhinitis; thoracic aortic aneurysm; hypertension; history of stenosis of left subclavian artery; gastroparesis; GERD; chronic kidney disease stage III; history of melanoma in situ; history of T12 compression fracture; osteoporosis; history of cerebral infarction; history of postherpetic trigeminal neuralgia; history of iron deficiency anemia due to chronic blood loss; history of pancytopenia; history of DVT, status post IVC filter; depression; anxiety; TIA, who lives alone, brother lives a couple of doors from her, presents with rectal pain and chills. The patient was recently in the hospital for weakness and during the hospital stay she was found to have hyponatremia, treated with IV fluids and Lasix, and also she received 5 units of PRBCs and 3 units of platelets, and during one of the blood transfusions, she developed shaking rigors, fevers, and shortness of breath. CT of abdomen and pelvis showed a 2 cm perirectal abscess. She was treated with IV antibiotics. She also had pulmonary edema at that time, and that was improved. Seen by surgery, and felt that perirectal abscess is healing and does not need I and D. At the time of discharge, she was discharged on Bactrim for 10 days. Supposed to follow up with in two weeks. The patient says last 2 to 3 days, again she is having rectal pain and back pain going down through the legs and today she was having shaking chills. That is the reason she came here. Currently, hemodynamically stable. Her CT scan showed no obvious abscess to drain. Afebrile. WBC 2.9, hemoglobin 7.7, platelets are 87, creatinine 1. Urinalysis negative. Denies any headache. No blurred visions, no earache, no runny nose, no sore throat, no cough. Appetite is okay. No difficulty swallowing. No chest pain, no shortness of breath, no nausea. Has abdominal discomfort. She was constipated, but moved her bowels thrice today, but there was no blood in stools or black stools. Normal bladder movements. Ambulates with a cane. Admission Exam Per Admitting Provider GENERAL: The patient is of moderate build, not in acute distress. VITAL SIGNS: Temperature 36.9, pulse 71, respiratory rate 20, blood pressure 108/48, oxygen 92% on room air. HEENT: Pupils equal, round and reactive to light. Oral mucosa moist. NECK: No JVD, no neck masses. CARDIOVASCULAR: S1 and S2 heard. Regular rate and rhythm. No murmur, no gallop. RESPIRATORY SYSTEM: Normal AP diameter. No accessory muscle use. No wheezing, no crackles. ABDOMEN: Soft, bowel sounds present. Mild discomfort. No guarding, no ri gidity, no distention. CENTRAL NERVOUS SYSTEM: Cranial nerves II-XII are grossly intact, nonfocal. EXTREMITIES: Trace pedal edema, no erythema seen. Principal Diagnosis Recent juan-rectal abscess Discharge Exam Constitutional + well hydrated; no acute distress Eyes PERRL, conjunctivae normal, anicteric sclerae ENMT external ear and nose normal, oropharynx normal Respiratory normal respiratory effort, lungs clear to auscultation Cardiovascular Rate/Rhythm: regular rate and regular rhythm S1 S2 Gastrointestinal (Abdomen) normal bowel sounds, soft, nontender, no hepatosplenomegaly Musculoskeletal no cyanosis or clubbing, extremities motor strength 5/5 Neurologic PERRL, EOMI, accommodation nl, no face palsy, no dysarthria Psychiatric A+Ox3, euthymic affect Discharge Data Allergies Allergy/AdvReac Type Severity Reaction Status Date / Time No Known Allergies Allergy Verified 01/22/22 09:04 Consultations 01/29/22 19:56 ED Decision to Admit Stat 01/29/22 22:39 Consult General Surgery Routine Ordered Studies 01/29/22 15:31 CT abd pelvis IV con only Stat Lower chest: No acute abnormality Liver: Unremarkable. No focal lesions are seen. Gallbladder and biliary tree: Patient is status post cholecystectomy. Physiologic prominence of the biliary ducts is noted. Trace pneumobilia is again seen. Pancreas: Unremarkable, no focal lesions. Spleen: Unremarkable. Adrenals: Unremarkable. Kidneys and ureters: A small right renal cyst is unchanged. Bladder: Unremarkable. Reproductive organs: Patient is status post hysterectomy. Bowel: Diverticulosis is seen without evidence of diverticulitis. Previously noted perirectal abscess is no longer seen, residual soft tissue stranding/thickening is seen about the rectum. Lymph nodes Retroperitoneal: Unremarkable. Mesenteric: Unremarkable. Pelvic: Unremarkable. Peritoneum: Normal. Vessels: IVC filter is seen. Atherosclerotic calcifications are seen. Varices are noted in the pelvic soft tissues. Abdominal wall: Unremarkable. Bones: Degenerative changes in the visualized spine. T12 compression deformity is unchanged. Pars defect is seen at L5-S1. IMPRESSION: Interval improvement in previously noted perirectal abscess. No drainable fluid collection is seen although residual soft tissue stranding is noted. Hospital Course (1) Rigors: (2) Pancytopenia: Presented with chills, Rectal pain Recent rectal abscess that was treated medically CT abd/P this admission did not show any drainable fluid collection although residual soft tissue stranding is noted Was started on IV zosyn Blood cultures were negative Patient has muscle spasms involving medial thigh/perineal area with some rectal pain Spasms was managed with flexeril Rectal pain resolved Patient was discharged on 2 more days of augmentin to complete treatment She reports she has miralax and senokot at home to take as needed for constipation Pancytopenia H/o recurrent follicular lymphoma, AML, chemotherapy Got 2 PRBC on 01/30/22 for Hb of 6.9 Hb is 8.4 today H/o pAF H/o DVT (left leg) S/p IVC filter Not on anticoagulation due to anemia and thrombocytopenia SCD Continue home amiodarone and metoprolol Continue levothyroxine for hypothyroidism Total Time Total Time Spent Total Time Spent (In Minutes): 40 Total Time Includes: Examination of the Patient, Discharge Planning and Medication Reconciliation Discharge Plan Discharge Items Patient Disposition: Home - Self-Care Reason For Visit: RECTAL PAIN, CHILLS Discharge Diagnosis: Recent juan-rectal abscess Activity: Resume your previous activity Non-emergency contact: Primary Care Provider Call non-emergency contact if: you have any medication questions Follow-up/Referrals: Flor Rubio, [Primary Care Provider] - Diet: Heart Healthy Addtl Attending Provider Instructions: Mrs Link You came to the hospital complaining of weakness, chills, thigh pains and rectal pain. You were recently treated for perirectal abscess. Repeat CT abdomen did not show abscess but signs of perirectal inflammation. You were treated with antibiotics. You are being discharged on 2 more days of antibiotics. You can resume your home chronic antibiotic (cefpodoxime) once you complete prescribed antibiotics. You are being discharged home. Please continue your home stool softeners as we discussed. Please ensure follow up with your Primary Doctor and Oncologist. It was a pleasure taking care of you. Pending Studies at Discharge: No Stand-Alone Forms: My [facility], Smoking Cessation Medications and DC Order Prescriptions: New cyclobenzaprine 5 mg Tablet 5 mg PO BID PRN (Reason: muscle spasm) Qty: 6 RF: 0 amoxicillin-pot clavulanate 875-125 mg tablet 1 tab PO BID 2 Days Qty: 4 RF: 0 Continued Breo Ellipta 100-25 mcg/dose blister with device 1 inh inhalation QAM PRN (Reason: Shortness Of Breath Or Wheezing) RF: 0 venlafaxine [Effexor XR] 75 mg capsule,extended release 24hr 75 mg PO HS RF: 0 pantoprazole [Protonix] 40 mg tablet,delayed release (DR/EC) 40 mg PO QAM RF: 0 fluticasone propionate [Flonase Allergy Relief] 50 mcg/actuation [place],Suspension 2 spray INTRANASAL QAM RF: 0 diclofenac sodium [Voltaren Arthritis Pain] 1 % gel 4 g TOPICAL QID PRN (Reason: Pain) RF: 0 acyclovir 400 mg tablet 400 mg PO BID RF: 0 cefpodoxime 200 mg tablet 200 mg PO Q12 RF: 0 levothyroxine 125 mcg tablet 125 mcg PO DAILYBB RF: 0 allopurinol 300 mg tablet 300 mg PO DAILY RF: 0 Cresemba 186 mg capsule 372 mg PO DAILY RF: 0 ondansetron HCl 8 mg tablet 8 mg PO Q8H PRN (Reason: NAUSEA/VOMITING) RF: 0 Venclexta 100 mg tablet 100 mg PO DAILY RF: 0 metoprolol succinate 25 mg tablet extended release 24 hr 12.5 mg PO DAILY RF: 0 amiodarone 200 mg tablet 200 mg PO DAILY RF: 0 rosuvastatin 20 mg tablet 20 mg PO DAILY RF: 0 acetaminophen 325 mg Tablet 650 mg PO Q6H PRN (Reason: pain) Qty: 30 RF: 0 sennosides-docusate sodium [Senokot-S] 8.6-50 mg Tablet 1 tab PO QAM PRN (Reason: constipation) Qty: 30 RF: 0 gabapentin 300 mg capsule 300 mg PO QID RF: 0 spironolactone 25 mg tablet 12.5 mg PO DAILY RF: 0 Discharge Orders: Discharge Order (Routine); Ordered 02/03/22 Ordered By: Kimber Kaufman Admission Data Admit Date/Time: 01/29/22 21:18 Attending Provider: Kimber Kaufman I. Admit Provider: Hemal Mojica Primary Care Provider: Flor Rubio Other Providers: Hemal Mojica ; Nico Jaimes ; Anna,Home Care Other Interventions: Discharge Summary Assessment (RN) Last Done: 02/03/22 13:21
[2022-02-03 13:22] VITALS: BP 119/68; PULSE 72
== END 2022-02-03 14:14 | disposition home health service (06) | DRG 393 ==
LOC: ED 15:09 → 2N 21:18

== ENCOUNTER 2022-02-11 09:36 | Inpatient (IN) ==
[2022-02-11] MEDS ORDERED: ONDANSETRON INJ 2 MG/ML 2 ML VIAL IV STA (09:49)
--- NOTE | 2022-02-11 10:18 | XRay Report ---
XR chest 1V portable CLINICAL HISTORY: SEPSIS. COMPARISON STUDY: 01/12/2022 TECHNIQUE: 1 view of the chest FINDINGS: Single frontal view of the chest demonstrates the cardiomediastinal silhouette to be within normal li mits. A Port-A-Cath is in place. The lungs are clear of alveolar opacities. There is no evidence for pleural effusion. There is no evidence for vascular congestion. There is no acute osseous pathology. IMPRESSION: 1. No acute cardiopulmonary disease. ACT 112: Negative or not required by law. Electronically signed by: Jonathan Peguero M.D. 02/11/2022 10:17 AM
[2022-02-11] MEDS: MoRPHine SULFATE 4 MG/ML 1 ML CARP\\VIAL IV PRN ×2 (10:32→13:10)
--- NOTE | 2022-02-11 10:40 | Emergency Department Note ---
Impression & Plan Pancytopenia, Cellulitis of left leg, Anemia ED Provider Note NAME: KELLIE CHRISTOPHER AGE: 76 SEX: F : 1945 ARRIVES VIA: Walk-In INFORMANT: Patient, ED PROVIDER(S): Juan Godinez DO CHIEF COMPLAINT: Pain HPI: The patient is a 76-year-old female who presented to the emergency department for an evaluation of pain. The patient describes generalized pain but mostly in her long bones. She states that she has had similar episodes in the past whenever she has had leukemia problems. She did have chemotherapy last week. She was admitted to our facility recently for different complaints which included a perirectal infection as well as cellulitis. She was discharged on doxycycline. The patient states that she has been compliant with her outpatient medications. Over the last few days she has been noticing worsening symptoms of pain in her back and her arms and her legs. Denies having any fevers. She does notice some nosebleeds. She notices that her left leg is erythematous but this is not new she notices upon discharge from our facility last week. ROS: See above HPI for pertinent positives & negatives. A total of 10 systems reviewed and were otherwise negative. PAST MEDICAL HISTORY: See Below PAST SURGICAL HISTORY: See Below FAMILY HISTORY: See Below SOCIAL HISTORY: See Below HOME MEDICATIONS: See Below ALLERGIES: See Below VITALS: See Below PHYSICAL EXAMINATION: GENERAL: The patient is awake and alert. She does appear to be uncomfortable. EYES: The conjunctivae are clear. The pupils are round and reactive. EARS, NOSE, MOUTH AND THROAT: The nose is without any evidence of any deformity.. NECK: The neck is nontender and supple. RESPIRATORY: Normal respiratory effort is noted there is no evidence of wheezing rhonchi or rales CARDIOVASCULAR: Regular rate and rhythm noted there no murmurs rubs or gallops normal S1 normal S2. GASTROINTESTINAL: The abdomen is soft. Abdomen is nontender. MUSCULOSKELETAL/EXTREMITIES: There is no evidence of gross deformity full range of motion is noted in the hips and shoulders. SKIN: There is erythema noted in the left leg. Pedal edema was noted bilaterally. NEUROLOGIC: Patient is awake alert and oriented x3. MEDICAL DECISION MAKING: The patient is a 76-year-old female who presented to the emergency department for an evaluation of generalized weakness. The patient has a history of leukemia. She did receive chemotherapy last week. Her condition has been worsening especially over the last few days. She was admitted to our facility because of other symptoms recently. She was diagnosed with cellulitis of her left leg when she was discharged home. Patient has been experiencing significant pain as well as epistaxis. She notes that this usually occurs whenever she has problems with her acute leukemia. The patient was found to have pancytopenia. She has continued signs of cellulitis. It is possible that given her pancytopenia she is not doing well with the cellulitis and was started on antibiotics in the emergency department. I discussed the patient's laborat ory and radiographic studies with her. She was reevaluated multiple times. Given her findings I discussed her case with the on-call [facility] hospitalist. They have agreed to evaluate the patient in the emergency department for further management and disposition. Triage Nursing notes reviewed. Prior medical records reviewed Vital Signs: reviewed and remarkable for elevated blood pressure. Differential diagnosis: Infection, dehydration, metabolic abnormality, hypo/hyperglycemia, electrolyte disturbance, anemia, hypoxia, cardiac sources, intracerebral event, toxicologic, neurologic, as well as other pathologies. ER treatment provided: See below Diagnostics interpreted by me: ECG: EKG was obtained in the emergency department. My interpretation is normal sinus rhythm at 72 bpm. There is no ectopy. Right bundle branch block pattern was noted. This was compared to a tracing from January 29, 2022. No changes were noted. Cardiac Monitoring: An order was placed for continuous cardiac monitoring. The monitor shows a rate of 75 bpm with sinus rhythm. Laboratory studies: As stated above and show below. Imaging studies: See below Consultation(s): I discussed this case with [facility]. Past Med/Surg History Medical History Acute hyponatremia Acute on chronic anemia AML (acute myeloblastic leukemia) Asthma Well controlled CKD (chronic kidney disease), stage III COPD (chronic obstructive pulmonary disease) Diverticulitis Hx Esophageal reflux Essential tremor Follicular lymphoma History of DVT (deep vein thrombosis) 2007 > in setting prolonged inactivity from hospital admission HLD (hyperlipidemia) HTN (hypertension) Hypothyroidism Pancreatitis Hx Pancytopenia Pancytopenia Post-herpetic trigeminal neuralgia Reason for gabapentin Thoracic aortic aneurysm without rupture Ascending thoracic aorta is ectatic up to 4.4 cm (Previously measured 4.1 cm in 2012. Slowly increasing in size) per 06/2020 CTA, under surveillance by Dr. Cohn Surgical History H/O parotidectomy (11/2003) H/O: hysterectomy History of bone marrow biopsy (10/2011) Jul 2021 History of cataract surgery bilat History of colonoscopy (02/16/19) History of cystoscopy (06/02/12) History of dilatation and curettage History of ERCP (06/21/08) History of esophagogastroduodenoscopy (EGD) (03/06/16) History of excision of lesion (04/02/21) Right Superficial Parotid S/P cholecystectomy S/P insertion of IVC (inferior vena caval) filter (06/26/12) 2012 > [place] Filter Placement Right Groin Dr. Srivastava at [facility] Status post excisional biopsy (07/07/17) Left Inguinal Lymph Node Dr. Anderson at [facility] Status post fine needle aspiration (04/05/21) Left External Iliac Lymph Node under [facility] Dr. Coreas at [facility] Status post fine needle aspiration (02/08/19) Right Parotid Gland Lesion Family History Grandmother (Maternal) , Passed Age 52 due to Colon Cancer No problems noted. Father , Passed Age 72 due to Lung Cancer, occupation related No problems noted. Mother , Passed Age 84 of unknown cancer No problems noted. Brother , Passed Age 70 of unknown cancer No problems noted. Brother No problems noted. Daughter CLL (chronic lymphocytic leukemia) Son No problems noted. Son No problems noted. Son No problems noted. Aunt , Passed Age 70 due to Breast Cancer No problems noted. 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 How many Children do You have: 4 Other Information That Helps Us Care for You: No Feels Safe at Home: Yes Safety Concerns: Feels Safe At This Time Childhood Exposure to Second-Hand Smoke: Yes (father smoked in home) caffeine: Yes (cola daily) during the past year weight has: remained stable Dental Care, Regularly: Yes Physical Activity Frequency: Does not Exercise Assistive Devices: Cane and Walker Allergies Allergies Allergy/AdvReac Type Severity Reaction Status Date / Time No Known Allergies Allergy Verified 01/22/22 09:04 Home Meds Home Medications Medication Instructions Recorded Confirmed fluticasone propionate 50 2 spray INTRANASAL QAM 08/03/19 02/11/22 mcg/actuation nasal spray,suspension (Flonase Allergy Relief) pantoprazole 40 mg tablet,delayed 40 mg PO QAM 08/03/19 02/11/22 release (Protonix) venlafaxine 75 mg capsule,extended 75 mg PO HS 08/03/19 02/11/22 release 24 hr (Effexor XR) diclofenac sodium 1 % topical gel 4 g TOPICAL QID PRN 10/21/19 02/11/22 (Voltaren Arthritis Pain) fluticasone furoate 100 1 inh INHALATION QAM PRN 05/02/21 02/11/22 mcg-vilanterol 25 mcg/dose inhalation powder (Breo Ellipta) acyclovir 400 mg tablet 400 mg PO BID 09/17/21 02/11/22 allopurinol 300 mg tablet 300 mg PO DAILY 12/30/21 02/11/22 cefpodoxime 200 mg tablet 200 mg PO Q12 12/30/21 02/11/22 isavuconazonium sulfate 186 mg 372 mg PO DAILY 12/30/21 02/11/22 capsule (Cresemba) levothyroxine 125 mcg tablet 125 mcg PO DAILYBB 12/30/21 02/11/22 ondansetron HCl 8 mg tablet 8 mg PO Q8H PRN 12/30/21 02/11/22 amiodarone 200 mg tablet 200 mg PO DAILY 01/05/22 02/11/22 metoprolol succinate 25 mg 12.5 mg PO DAILY 01/05/22 02/11/22 tablet,extended release 24 hr rosuvastatin 20 mg tablet 20 mg PO DAILY 01/05/22 02/11/22 venetoclax 100 mg tablet 100 mg PO DAILY 01/05/22 02/11/22 (Venclexta) gabapentin 300 mg capsule 300 mg PO 5XD 01/29/22 02/11/22 spironolactone 25 mg tablet 12.5 mg PO DAILY 01/29/22 02/11/22 Previous Rx's Medication Instructions Recorded acetaminophen 325 mg tablet 650 mg PO Q6H PRN #30 tab 01/15/22 sennosides 8.6 mg-docusate sodium 1 tab PO QAM PRN #30 tab 01/15/22 50 mg tablet (Senokot-S) cyclobenzaprine 5 mg tablet 5 mg PO BID PRN #6 tab 02/03/22 Results & Data (ED) Vital Signs Vital Signs - 24 hr 02/11/22 09:40 02/11/22 10:10 02/11/22 11:10 Temperature 36.1 C L Temperature Source Temporal Artery Scan Pulse Rate 78 Pulse Rate [Left Finger] 76 Pulse Rhythm Regular Pulse Rhythm [Left Finger] Regular Pulse Strength Normal Pulse Strength [Left Finger] Normal Respiratory Rate 20 18 20 Respiratory Effort / Characteristics Non-Labored Spontaneous Non-Labored Spontaneous Normal for Patient Non-Labored Spontaneous Respiratory Depth Normal Normal Respiratory Pattern Regular Regular Blood Pressure 191/78 H Blood Pressure [Left Arm] 170/78 H Blood Pressure Mean 115 Blood Pressure Mean [Left Arm] 108 Blood Pressure Position Sitting Blood Pressure Position [Left Arm] Sitting Pulse Oximetry 100 98 98 Oxygen Delivery Method Room Air Room Air Room Air Sepsis Recent Fever Within 48 Hours No Sepsis New/Unexplained Change in Mental Status No Sepsis Action Taken by Nursing No Action Required Home Medications Current Medication List: was personally reviewed by me Laboratory Data Attestation: I reviewed the patient's lab results. Result diagrams: 02/12/22 05:54 02/12/22 05:54 Lab Results 02/11/22 02/11/22 02/11/22 Range/Units 10:19 10:19 10:19 WBC 4.08 L (4.8-10.8) K/uL RBC 2.30 L (4.2-5.4) M/uL Hgb 6.5 L* (12.0-16.0) g/dL Hct 19.3 L* (37-47) % MCV 83.9 (80-100) fL MCH 28.3 (25-34) pg MCHC 33.7 (32-36) g/dL RDW Std Deviation 45.8 (36.4-46.3) fL RDW Coeff of Rosamaria 14.8 H (11.5-14.5) % Plt Count 23 L* (130-400) K/uL MPV 9.6 (7.4-10.4) fL Immature Gran % (Auto) 0.2 % Neut % (Auto) 80.0 % Lymph % (Auto) 11.5 % [place] % (Auto) 8.3 % Eos % (Auto) 0.0 % Baso % (Auto) 0.0 % Neut # (Auto) 3.26 (1.4-6.5) K/uL Lymph # (Auto) 0.47 L (1.2-3.4) K/uL [place] # (Auto) 0.34 (0.11-0.59) K/uL Eos # (Auto) 0.00 (0-0.5) K/uL Baso # (Auto) 0.00 (0-0.2) K/uL Immature Gran # (Auto) 0.01 (0.00-0.02) K/uL Platelet Estimate SIGNIFIC DECREASED (Normal) Giant Platelets 1+ ESR 37 H (0-30) mm/hr PT (9.0-12.0) Seconds INR (0.9-1.1) APTT (21.0-31.0) Seconds PTT Ratio Sodium (136-145) mmol/L Potassium (3.5-5.1) mmol/L Chloride (98-107) mmol/L Carbon Dioxide (21-32) mmol/L Anion Gap (3-11) BUN (6-23) mg/dl Creatinine (0.6-1.2) mg/dl Est Cr Clr Drug Dosing Est GFR ( Amer) ml/min Est GFR (Non-Af Amer) ml/min BUN/Creatinine Ratio (10-20) Glucose (70-99(Fasting)) mg/dl Lactate (0.4-2.0) mmol/L Calcium (8.5-10.1) mg/dl Magnesium (1.7-2.4) mg/dl Total Bilirubin (0.2-1.0) mg/dl AST (13-39) U/L ALT (7-52) U/L Alkaline Phosphatase (34-104) U/L Troponin I High Sens 14.6 H (0-14) pg/ml C-Reactive Protein (0-0.5) mg/dl Total Protein (6.0-8.3) gm/dl Albumin (3.4-5.0) gm/dl Globulin (2.5-4.0) gm/dl Albumin/Globulin Ratio (0.9-2) Procalcitonin (0-0.5) ng/ml 02/11/22 02/11/22 02/11/22 Range/Units 10:19 10:19 10:19 WBC (4.8-10.8) K/uL RBC (4.2-5.4) M/uL Hgb (12.0-16.0) g/dL Hct (37-47) % MCV (80-100) fL MCH (25-34) pg MCHC (32-36) g/dL RDW Std Deviation (36.4-46.3) fL RDW Coeff of Rosamaria (11.5-14.5) % Plt Count (130-400) K/uL MPV (7.4-10.4) fL Immature Gran % (Auto) % Neut % (Auto) % Lymph % (Auto) % [place] % (Auto) % Eos % (Auto) % Baso % (Auto) % Neut # (Auto) (1.4-6.5) K/uL Lymph # (Auto) (1.2-3.4) K/uL [place] # (Auto) (0.11-0.59) K/uL Eos # (Auto) (0-0.5) K/uL Baso # (Auto) (0-0.2) K/uL Immature Gran # (Auto) (0.00-0.02) K/uL Platelet Estimate (Normal) Giant Platelets ESR (0-30) mm/hr PT 12.4 H (9.0-12.0) Seconds INR 1.2 H (0.9-1.1) APTT 52.7 H* (21.0-31.0) Seconds PTT Ratio 1.9 Sodium 131 L (136-145) mmol/L Potassium 3.8 (3.5-5.1) mmol/L Chloride 97 L (98-107) mmol/L Carbon Dioxide 24 (21-32) mmol/L Anion Gap 10 (3-11) BUN 16 (6-23) mg/dl Creatinine 0.99 (0.6-1.2) mg/dl Est Cr Clr Drug Dosing Not Reportable Est GFR ( Amer) 63.7 ml/min Est GFR (Non-Af Amer) 55.0 ml/min BUN/Creatinine Ratio 16.2 (10-20) Glucose 117 H (70-99(Fasting)) mg/dl Lactate (0.4-2.0) mmol/L Calcium 8.7 (8.5-10.1) mg/dl Magnesium 2.1 (1.7-2.4) mg/dl Total Bilirubin 0.5 (0.2-1.0) mg/dl AST 9 L (13-39) U/L ALT 8 (7-52) U/L Alkaline Phosphatase 105 H (34-104) U/L Troponin I High Sens (0-14) pg/ml C-Reactive Protein 8.99 H (0-0.5) mg/dl Total Protein 6.2 (6.0-8.3) gm/dl Albumin 3.5 (3.4-5.0) gm/dl Globulin 2.7 (2.5-4.0) gm/dl Albumin/Globulin Ratio 1.3 (0.9-2) Procalcitonin 0.66 H (0-0.5) ng/ml 02/11/22 Range/Units 10:59 WBC (4.8-10.8) K/uL RBC (4.2-5.4) M/uL Hgb (12.0-16.0) g/dL Hct (37-47) % MCV (80-100) fL MCH (25-34) pg MCHC (32-36) g/dL RDW Std Deviation (36.4-46.3) fL RDW Coeff of Rosamaria (11.5-14.5) % Plt Count (130-400) K/uL MPV (7.4-10.4) fL Immature Gran % (Auto) % Neut % (Auto) % Lymph % (Auto) % [place] % (Auto) % Eos % (Auto) % Baso % (Auto) % Neut # (Auto) (1.4-6.5) K/uL Lymph # (Auto) (1.2-3.4) K/uL [place] # (Auto) (0.11-0.59) K/uL Eos # (Auto) (0-0.5) K/uL Baso # (Auto) (0-0.2) K/uL Immature Gran # (Auto) (0.00-0.02) K/uL Platelet Estimate (Normal) Giant Platelets ESR (0-30) mm/hr PT (9.0-12.0) Seconds INR (0.9-1.1) APTT (21.0-31.0) Seconds PTT Ratio Sodium (136-145) mmol/L Potassium (3.5-5.1) mmol/L Chloride (98-107) mmol/L Carbon Dioxide (21-32) mmol/L Anion Gap (3-11) BUN (6-23) mg/dl Creatinine (0.6-1.2) mg/dl Est Cr Clr Drug Dosing Est GFR ( Amer) ml/min Est GFR (Non-Af Amer) ml/min BUN/Creatinine Ratio (10-20) Glucose (70-99(Fasting)) mg/dl Lactate 1.6 (0.4-2.0) mmol/L Calcium (8.5-10.1) mg/dl Magnesium (1.7-2.4) mg/dl Total Bilirubin (0.2-1.0) mg/dl AST (13-39) U/L ALT (7-52) U/L Alkaline Phosphatase (34-104) U/L Troponin I High Sens (0-14) pg/ml C-Reactive Protein (0-0.5) mg/dl Total Protein (6.0-8.3) gm/dl Albumin (3.4-5.0) gm/dl Globulin (2.5-4.0) gm/dl Albumin/Globulin Ratio (0.9-2) Procalcitonin (0-0.5) ng/ml Administered Medications Acyclovir (Acyclovir 400 Mg Tab) 400 mg PO BID AJAY Stop: 03/13/22 20:59 Last Admin: 02/12/22 08:24 Dose: 400 mg Documented by: [id number] Admin: 02/11/22 21:18 Dose: 400 mg Documented by: [id number] Allopurinol (Allopurinol 300 Mg Tab) 300 mg PO DAILY [facility] Stop: 03/14/22 08:59 Last Admin: 02/12/22 08:24 Dose: 300 mg Documented by: [id number] Amiodarone HCl (Amiodarone 200 Mg Tab) 200 mg PO DAILY AJAY Stop: 03/14/22 08:59 Last Admin: 02/12/22 08:24 Dose: 200 mg Documented by: [id number] Docusate Sodium (Docusate Sodium 100 Mg Cap) 100 mg PO BID [facility] Stop: 02/25/22 20:59 Last Admin: 02/12/22 08:24 Dose: 100 mg Documented by: [id number] Admin: 02/11/22 21:22 Dose: Not Given Documented by: [id number] Fluticasone Propionate (Fluticasone Propionate Na Spr 16 Gm Btl) 2 sprays NA QAM [facility] Stop: 03/14/22 08:59 Last Admin: 02/12/22 08:25 Dose: 2 sprays Documented by: [id number] Gabapentin (Gabapentin 300 Mg Cap) 300 mg PO QID@0800,1200,1700,2100 [facility] Stop: 03/13/22 20:59 Last Admin: 02/12/22 08:23 Dose: 300 mg Documented by: [id number] Admin: 02/11/22 21:23 Dose: 300 mg Documented by: [id number] Hydromorphone HCl (Hydromorphone [facility] 30 Mg/30 Ml) 30 mg IV PRN PRN; Protocol PRN Reason: CMS EXPERT Pain Titration Stop: 02/25/22 18:45 Last Admin: 02/11/22 22:26 Dose: 30 mg Documented by: [id number] Cosigned by: [id number] Sodium Chloride (Nss 1000ml) 1,000 mls @ 15 mls/hr IV .Q24H [facility] Stop: 02/25/22 18:46 Last Admin: 02/11/22 22:26 Dose: 15 mls/hr Documented by: [id number] Levothyroxine Sodium (Levothyroxine Sodium 125 Mcg Tablet) 125 mcg PO DAILYBB [facility] Stop: 03/14/22 06:29 Last Admin: 02/12/22 06:02 Dose: 125 mcg Documented by: [id number] Metoprolol Succinate (Metoprolol Succ 25mg Ext Rel Tab) 12.5 mg PO DAILY [facility] Stop: 03/14/22 08:59 Last Admin: 02/12/22 08:25 Dose: 12.5 mg Documented by: [id number] Miscellaneous (Venclexta~Order Awaiting Action) 1 ea N/A QS AJAY Stop: 03/13/22 15:59 Last Admin: 02/12/22 03:23 Dose: Not Given Documented by: [id number] Admin: 02/11/22 18:00 Dose: Not Given Documented by: [id number] Miscellaneous (Cresemba~Order Awaiting Action) 1 ea N/A QS [facility] Stop: 03/13/22 15:59 Last Admin: 02/12/22 03:23 Dose: Not Given Documented by: [id number] Admin: 02/11/22 17:59 Dose: Not Given Documented by: [id number] Pantoprazole Sodium (Pantoprazole 40 Mg Tab) 40 mg PO QAM [facility] Stop: 03/14/22 08:59 Last Admin: 02/12/22 08:25 Dose: 40 mg Documented by: [id number] Rosuvastatin Calcium (Rosuvastatin Calcium 20 Mg Tab) 20 mg PO DAILY AJAY Stop: 03/14/22 08:59 Last Admin: 02/12/22 08:25 Dose: 20 mg Documented by: [id number] Senna/Docusate Sodium (Docusate Sodium/Senna 50/8.6mg Tab) 1 tab PO QAM [facility] Stop: 03/14/22 08:59 Last Admin: 02/12/22 08:24 Dose: 1 tab Documented by: [id number] Spironolactone (Spironolactone 12.5 Mg Tab) 12.5 mg PO DAILY [facility] Stop: 03/14/22 08:59 Last Admin: 02/12/22 08:23 Dose: 12.5 mg Documented by: [id number] Venlafaxine HCl (Venlafaxine Hcl Xr 75 Mg Capxr) 75 mg PO HS [facility] Stop: 03/13/22 20:59 Last Admin: 02/11/22 21:21 Dose: 75 mg Documented by: [id number] Discontinued Medications Acetaminophen (Acetaminophen 500 Mg Tab) 500 mg PO ONE ONE Stop: 02/11/22 13:54 Last Admin: 02/11/22 15:37 Dose: 500 mg Documented by: [id number] Acyclovir (Acyclovir 400 Mg Tab) 400 mg PO NOW STA Stop: 02/11/22 13:57 Last Admin: 02/11/22 15:19 Dose: 400 mg Documented by: [id number] Amiodarone HCl (Amiodarone 200 Mg Tab) 200 mg PO NOW ONE Stop: 02/11/22 13:55 Last Admin: 02/11/22 15:18 Dose: 200 mg Documented by: [id number] Diphenhydramine HCl (Diphenhydramine Capsule 25 Mg Cap) 12.5 mg PO ONE ONE Stop: 02/11/22 13:54 Last Admin: 02/11/22 17:02 Dose: 12.5 mg Documented by: [id number] Furosemide (Furosemide 40 Mg/4 Ml Vial) 40 mg IV ONE ONE Stop: 02/11/22 13:54 Last Admin: 02/11/22 15:27 Dose: 40 mg Documented by: [id number] Hydromorphone HCl (Hydromorphone Inj 0.5 Mg/0.5 Ml Syr) 0.5 mg IV Q30M PRN PRN Reason: severe pain Stop: 02/25/22 14:59 Last Admin: 02/11/22 17:47 Dose: 0.5 mg Documented by: [id number] Admin: 02/11/22 15:38 Dose: 0.5 mg Documented by: [id number] Ceftriaxone Sodium (Rocephin) 1,000 mg in 50 mls @ 100 mls/hr IV NOW STA Stop: 02/11/22 12:47 Last Infusion: 02/11/22 14:51 Dose: 0 mls/hr Documented by: [id number] Admin: 02/11/22 12:54 Dose: 100 mls/hr Documented by: [id number] Levothyroxine Sodium (Levothyroxine Sodium 125 Mcg Tablet) 125 mcg PO NOW STA Stop: 02/11/22 13:56 Last Admin: 02/11/22 15:19 Dose: 125 mcg Documented by: [id number] Metoprolol Succinate (Metoprolol Succ 50mg Ext Rel Tab) 12.5 mg PO NOW STA Stop: 02/11/22 13:55 Last Admin: 02/11/22 15:18 Dose: 37.5 mg Documented by: [id number] Miscellaneous (Gabapentin~Order Awaiting Action) 1 ea N/A QS AJAY Stop: 03/13/22 15:59 Last Admin: 02/12/22 01:23 Dose: Not Given Documented by: [id number] Morphine Sulfate (Morphine Sulfate 4 Mg/Ml 1 Ml Carp\Vial) 4 mg IV Q30M PRN PRN Reason: Pain Stop: 02/25/22 09:48 Last Admin: 02/11/22 13:10 Dose: 4 mg Documented by: [id number] Admin: 02/11/22 10:32 Dose: 4 mg Documented by: [id number] Ondansetron HCl (Ondansetron Inj 2 Mg/Ml 2 Ml Vial) 4 mg IV NOW STA Stop: 02/11/22 09:50 Last Admin: 02/11/22 10:31 Dose: 4 mg Documented by: [id number] Imaging Data Radiologist's Impression: Chest X-Ray 02/11/22 09:49 XR chest 1V portable CLINICAL HISTORY: SEPSIS. COMPARISON STUDY: 01/12/2022 TECHNIQUE: 1 view of the chest FINDINGS: Single frontal view of the chest demonstrates the cardiomediastinal silhouette to be within normal limits. A Port-A-Cath is in place. The lungs are clear of alveolar opacities. There is no evidence for pleural effusion. There is no evidence for vascular congestion. There is no acute osseous pathology. IMPRESSION: 1. No acute cardiopulmonary disease. ACT 112: Negative or not required by law. Electronically signed by: Jonathan Peguero M.D. 02/11/2022 10:17 AM Discharge Plan Visit Data Chief Complaint: Weakness Stated Complaint: PAIN IN ARMS AND LEGS, WEAKNESS, NOSE BLEEDS ED Provider: Juan Godinez Discharge Problem: Pancytopenia, Cellulitis of left leg, Anemia Patient Disposition: Admitted As Inpatient Discharge Instructions Interventions: ED Discharge Assessment Last Done: 02/11/22 13:53 Discharge Problem: Anemia Qualifiers: Anemia type: unspecified type Qualified Code(s): D64.9 - Anemia, unspecified
[2022-02-11 10:53] LABS: Giant Platelets 1+; Hematocrit (blood only) 19.3 % (37-47); Hemoglobin 6.5 g/dL (12.0-16.0); Immature Granulocytes # (auto) 0.01 K/uL (0.00-0.02); Immature Granulocytes % (auto) 0.2 %; Lymphocytes # (auto) 0.47 K/uL (1.2-3.4); Lymphocytes % (auto) 11.5 %; Mean Corpuscular Hemoglobin 28.3 pg (25-34); Mean Corpuscular Hgb Conc 33.7 g/dL (32-36); Mean Corpuscular Volume 83.9 fL (80-100); Mean Platelet Volume 9.6 fL (7.4-10.4); Monocytes # (auto) 0.34 K/uL (0.11-0.59); Monocytes % (auto) 8.3 %; Neutrophils # (auto) 3.26 K/uL (1.4-6.5); Platelet Count 23 K/uL (130-400); Platelet Estimate SIGNIFIC DECREASED (Normal); RDW Coefficient of Variation 14.8 % (11.5-14.5); RDW Standard Deviation 45.8 fL (36.4-46.3); White Blood Count 4.08 K/uL (4.8-10.8)
[2022-02-11 10:55] LABS: Alanine Aminotransferase 8 U/L (7-52); Albumin Globulin Ratio 1.3 (0.9-2); Albumin Level 3.5 gm/dl (3.4-5.0); Alkaline Phosphatase 105 U/L (34-104); Anion Gap 10 (3-11); Aspartate Aminotransferase 9 U/L (13-39); BUN Creatinine Ratio 16.2 (10-20); Bilirubin,Total 0.5 mg/dl (0.2-1.0); Blood Urea Nitrogen 16 mg/dl (6-23); C Reactive Protein 8.99 mg/dl (0-0.5); Calcium 8.7 mg/dl (8.5-10.1); Carbon Dioxide 24 mmol/L (21-32); Chloride 97 mmol/L (98-107); Est GFR (African American) 63.7 ml/min; Globulin 2.7 gm/dl (2.5-4.0); Glucose 117 mg/dl (70-99(Fasting)); INR 1.2 (0.9-1.1); Magnesium 2.1 mg/dl (1.7-2.4); Partial Thromboplastin Ratio 1.9; Potassium 3.8 mmol/L (3.5-5.1); Prothrombin Time 12.4 Seconds (9.0-12.0); Sodium 131 mmol/L (136-145); Total Protein 6.2 gm/dl (6.0-8.3)
[2022-02-11 11:11] LABS: Partial Thromboplastin Time 52.7 Seconds (21.0-31.0)
[2022-02-11] MEDS ORDERED: cefTRIAXone SODIUM 1,000 MG/50 ML BAG IV STA (12:18)
--- NOTE | 2022-02-11 13:31 | Communication Note ---
Date of Service: February 11, 2022 76 yo F recently admitted to [facility] for non-surgical treatment of perirectal abscess, discharged on 02/03, presents today with bone pain and found to be anem ic in need of a transfusion. She reports a history of bone pain and was having bone pain prior to her recent chemotherapy infusions on 01/29. Review of systems reveals an episode of epistaxis followed by report of coughing up blood the following day likely related to postnasal drip. She has had a 2 g hemoglobin drop in the last couple days since outpatient blood work was performed. She reports chest pain substernally and shortness of breath with exertion consistent with symptomatic anemia. She came in because she overall felt more weak in the last couple of days and although walking with her walker this morning, reports being almost too weak to move. She has some shaking but denies any chills. Pain was not controlled with morphine 4 mg IV given in ER. Trial of Dilaudid now. Since discharge she completed Augmentin x 2 days. Followup with her PCP was on 02/08 and she was diagnosed with a left leg cellulitis and placed on doxycycline for 10 days. A LLE doppler was negative at that time. She suffers from a history of recurrent follicular lymphoma with recent development of pancytopenia with a bone marrow sample revealing 18% myeloblasts. 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 She is on treatment with venetoclax 100mg PO daily, and Vidaza was added recently. A side effect of this medication is bone pain. Lab work includes CBC with white blood cell count of 4 and no evidence of neutropenia, hemoglobin 6.5 hematocrit 19.3 and platelet of 23. INR is 1.2 and PTT is slightly elevated at 53. BMP reveals sodium of 131 potassium 3.8 and normal creatinine with normal glucose. Lactate is 1.6. The patient does not appear septic. Liver function studies are within normal limits. Highly sensitive troponin is mildly elevated at 14.6 but repeat is 13.7 which is reassuring this is not related to ACS. CRP and ESR elevated with CRP of 9. Procalcitonin mildly elevated 0.66 urinalysis reveals no evidence of infection. MRSA screen of the nares nares is negative. On physical exam she is generally weak and ill-appearing. She is mentating normally and has no gross neurologic deficits. She is unable to sit up independently in bed without assistance. Cardiac exam reveals regular rate and rhythm with a 3 out of 6 systolic ejection murmur at the left sternal border. Lungs are clear to auscultation throughout. Abdomen is soft nontender and nondistended. She has mild swelling without edema in her lower extremities bilaterally. Her left lower extremity there is evidence of cellulitis from the mid tibia anteriorly down to the ankle not including the foot. There is no evidence of wound or drainage. Warmth is evident on the left leg compared to right. EKG with normal sinus rhythm and bifascicular block which is chronic. Imaging including a CT of the abdomen pelvis without contrast reveals no evidence of perirectal abscess. Chest x-ray with no acute cardiopulmonary disease. Overall this is an immunosuppressed patient presenting with generalized weakness which is multifactorial in etiology including pancytopenia with symptomatic anemia and ongoing chemotherapy and left lower leg infection. As mentioned above she is not septic, however, she is not tolerating p.o. well and we will switch doxycycline that she was taking as outpatient to Rocephin inpatient. Agree with plan to give her 2 units of blood. As she is not having any active bleeding will not give her platelets until less than 10, or if she begins bleeding she will receive platelet transfusion if platelets are less than 20. This was confirmed with her outpatient oncologist, Dr. Street who also is fine with her continuing her daily chemo medicine. Bone pain will be treated with Di laudid with likely conversion to [employer] for patient comfort. Monitor for clinical improvement on PCU with repeat CBC in a.m. Thea Francisco DO [facility]
[2022-02-11] MEDS ORDERED: SODIUM CHLORIDE 0.9% 250 ML IV PRN ×2 (13:42→14:09)
[2022-02-11] MEDS ORDERED: diphenhydrAMINE Capsule 25 MG CAP PO ONE (13:53)
[2022-02-11] MEDS ORDERED: FUROSEMIDE 40 MG/4 ML VIAL IV ONE (13:53)
[2022-02-11] MEDS ORDERED: ACETAMINOPHEN 500 MG TAB PO ONE (13:53)
[2022-02-11] MEDS ORDERED: AMIODARONE 200 MG TAB PO ONE (13:54)
[2022-02-11] MEDS ORDERED: METOPROLOL SUCC 50MG EXT REL TAB PO STA (13:54)
[2022-02-11] MEDS ORDERED: LEVOTHYROXINE SODIUM 125 MCG TABLET PO STA (13:55)
[2022-02-11] MEDS ORDERED: ACYCLOVIR 400 MG TAB PO STA (13:56)
--- NOTE | 2022-02-11 14:02 | History & Physical Report ---
Date of Service February 11, 2022 Assessment & Plan (1) Cellulitis of left leg: (2) Symptomatic anemia: (3) AML (acute myeloblastic leukemia): (4) HTN (hypertension): (5) Hypothyroidism: (6) Pancytopenia due to antineoplastic chemotherapy: (7) Follicular lymphoma: (8) Immunosuppressed status: Plan: This is a 76-year-old female who has significant past medical history of AML, recurrent follicular lymphoma, history of mucoepidermoid carcinoma, pancytopenia, PAF, HTN, HLD, CKD stage III, thoracic aortic aneurysm, history of DVT status post IVCF, depression with anxiety who presents to ED secondary to bone pain x2 to 3 weeks. Pt does not meet SIRS/SEPSIS criteria on admission. Symptomatic anemia Pancytopenia in setting of AML, hx of Recurrent Follicular Lymphoma, recent bone marrow bx showed 18% myeloblasts Thrombocytopenia Admit to PCU Hemodynamically stable, transfer 2 units of PRBC with 40 mg of IV Lasix in between Transfer 2 units in setting of symptomatic anemia, reduction in hemoglobin from 9.2-6.5 since 02/07 and expected need Discussed with Dr. Street given epistaxis, given no active bleeding no need to transfuse platelets at this time; otherwise transfuse platelets if less than 10 Follow CBC and monitor for further transfusion Can discuss with patient's primary oncologist Dr. Saucedo or on-call Dr. Street Currently on venetoclax daily, last chemo 01/29 Continue with acyclovir and Cresemba Hold cefpodoxime while on antibiotics ESR 37, CRP 8.99 Left lower extremity cellulitis Area marked with skin marker Continue IV Rocephin, MRSA swab pending Procalcitonin mildly elevated blood cultures pending PAF Continue with amiodarone and metoprolol Currently normal sinus rhythm Off anticoagulants in setting of pancytopenia Bilateral lower extremity edema Lungs and chest x-ray clear will give 40 mg IV Lasix in between units continue metoprolol and aldactone pt may require additional diuretic bnp ordered, last echo 09/2017 EF 55-60% with grade I diastolic dysfunction per epic Elevated High Sensitivity troponin pt denies CP, no EKG changes, likely in setting of anemia Initial 14.6, repeat 13.7, will trend x 1 this evening CKD 3 cr at baseline, monitor avoid nephrotoxic agents Dispo: PCU FULL CODE PCP: [facility] Pt was seen and examined in collaboration with Dr. Francisco, please see addendum Per Dr. Saucedo progress note on 01/24/22 regarding pt hx of malignancy: "Diagnosed with a Stage I E grade 3/03 follicular center cell lymphoma of a lymph gland in the left parotid in 10/23. She then underwent left parotidectomy in 11/23. She then received 4 cycles of R-CHOP and 50 Gy of external beam radiation therapy in 06/23. She then experienced relapse on her left forehead/ eyelid in 2007 and was treated with Rituxan which had to be stopped due to the development of pancreatitis. She then had a relapse again on her forehead/eyelid in 08/30. She then had a bone marrow done in 10/31 which was negative for non-Hodgkin lymphoma. She then was treated with one dose of Rituxan followed by Zevalin at [place]. She has recurrent disease on 07/17/2017 and had excisionallymph node biopsy from the inguinal area which was consistent with grade 1-2 follicular lymphoma. She was treated with a 2 cycles of bendamustine and rituximab. Last chemotherapy was in May of 2018. She hasachievedcomplete remission. The chemotherapy was discontinued because of the recurrent episodes of shingles/ H zosteron the forehead." History of Present Illness Chief Complaint: bone pain x 2-3 weeks. Primary Care Provider: Flor Rubio, This is a 76-year-old female who has significant past medical history of AML, recurrent follicular lymphoma, history of mucoepidermoid carcinoma, pancy topenia, HTN, HLD, CKD stage III, thoracic aortic aneurysm, history of DVT status post IVCF, depression with anxiety who presents to ED secondary to bone pain x2 to 3 weeks. Of significance patient was recently hospitalized 01/29/2017 secondary to rectal pain. There was concern for perirectal abscess. She was treated with IV antibiotics and transition to oral Augmentin. Patient admits that prior to being discharged home she noticed redness to her left lower extremity. She also noticed increased lower extremity edema. She was seen in outpatient setting by PCP. She was felt to have a left lower extremity cellulitis and started on doxycycline. She also had a left lower extremity venous Doppler which was negative for DVT. Overall she feels her redness has improved while on doxycycline; however, she admits to intermittent fevers over the past week. Her T-max was 100 and was last evening. She also notes to increased Long bone pain which she attributes to when her blood counts are low. She specifically complains of pain in her humerus, femur as well as feet. She admits to difficulty time walking secondary to pain. She further admits to 2 episodes of epistaxis. She admits to approximately a tablespoon for each time. These stopped spontaneously. In regards to her AML her last transfusion was during her hospitalization in which she required 2 units of PRBC. She recently had blood work on 02/07 showed hemoglobin of 9.2 and a platelet count of 37. Patient further is concerned about a questionable, "boil on her buttocks." She states she noticed bloody drainage on her brief approximately 2 days ago. She denies any rectal pain that was present in previous in regards to the pararectal abscess. Patient admits to chills of her spine, but denies sweats. Denies lightheadedness, dizziness, syncope, chest pain, shortness breath at rest, hemoptysis, hematemesis, nausea, vomiting, melena hematochezia, hematuria, dysuria, increased urgency or frequency with urination. She does admit to dyspnea on exertion. In ED patient remained hemodynamically stable. Her hemoglobin and hematocrit was 6.5 and 19.3 respectively. Her platelet count was 23 WBC 4.08. She was not neutropenic. She did have elevated ESR and CRP at 37 and 8.99 respectively. Her procalcitonin was elevated at 166. Her initial high-sensitivity troponin was elevated at 14. She was started on IV Rocephin due to concern for left lower extremity cellulitis. Allergies Allergy/AdvReac Type Severity Reaction Status Date / Time No Known Allergies Allergy Verified 01/22/22 09:04 Home Medications Medication Instructions Recorded Confirmed Type fluticasone propionate 50 2 spray INTRANASAL QAM 08/03/19 02/11/22 History mcg/actuation nasal spray,suspension (Flonase Allergy Relief) pantoprazole 40 mg tablet,delayed 40 mg PO QAM 08/03/19 02/11/22 History release (Protonix) venlafaxine 75 mg capsule,extended 75 mg PO HS 08/03/19 02/11/22 History release 24 hr (Effexor XR) diclofenac sodium 1 % topical gel 4 g TOPICAL QID PRN 10/21/19 02/11/22 History (Voltaren Arthritis Pain) fluticasone furoate 100 1 inh INHALATION QAM PRN 05/02/21 02/11/22 History mcg-vilanterol 25 mcg/dose inhalation powder (Breo Ellipta) acyclovir 400 mg tablet 400 mg PO BID 09/17/21 02/11/22 History allopurinol 300 mg tablet 300 mg PO DAILY 12/30/21 02/11/22 History cefpodoxime 200 mg tablet 200 mg PO Q12 12/30/21 02/11/22 History isavuconazonium sulfate 186 mg 372 mg PO DAILY 12/30/21 02/11/22 History capsule (Cresemba) levothyroxine 125 mcg tablet 125 mcg PO DAILYBB 12/30/21 02/11/22 History ondansetron HCl 8 mg tablet 8 mg PO Q8H PRN 12/30/21 02/11/22 History amiodarone 200 mg tablet 200 mg PO DAILY 01/05/22 02/11/22 History metoprolol succinate 25 mg 12.5 mg PO DAILY 01/05/22 02/11/22 History tablet,extended release 24 hr rosuvastatin 20 mg tablet 20 mg PO DAILY 01/05/22 02/11/22 History venetoclax 100 mg tablet 100 mg PO DAILY 01/05/22 02/11/22 History (Venclexta) acetaminophen 325 mg tablet 650 mg PO Q6H PRN #30 tab 01/15/22 02/11/22 Rx sennosides 8.6 mg-docusate sodium 1 tab PO QAM PRN #30 tab 01/15/22 02/11/22 Rx 50 mg tablet (Senokot-S) gabapentin 300 mg capsule 300 mg PO 5XD 01/29/22 02/11/22 History spironolactone 25 mg tablet 12.5 mg PO DAILY 01/29/22 02/11/22 History cyclobenzaprine 5 mg tablet 5 mg PO BID PRN #6 tab 02/03/22 02/11/22 Rx Past Med/Surg History Medical History Acute hyponatremia Acute on chronic anemia AML (acute myeloblastic leukemia) Asthma Well controlled CKD (chronic kidney disease), stage III COPD (chronic obstructive pulmonary disease) Diverticulitis Hx Esophageal reflux Essential tremor Follicular lymphoma History of DVT (deep vein thrombosis) 2007 > in setting prolonged inactivity from hospital admission HLD (hyperlipidemia) HTN (hypertension) Hypothyroidism Pancreatitis Hx Pancytopenia Pancytopenia Post-herpetic trigeminal neuralgia Reason for gabapentin Thoracic aortic aneurysm without rupture Ascending thoracic aorta is ectatic up to 4.4 cm (Previously measured 4.1 cm in 2012. Slowly increasing in size) per 06/2020 CTA, under surveillance by Dr. Cohn Surgical History H/O parotidectomy (11/2003) H/O: hysterectomy History of bone marrow biopsy (10/2011) Jul 2021 History of cataract surgery bilat History of colonoscopy (02/16/19) History of cystoscopy (06/02/12) History of dilatation and curettage History of ERCP (06/21/08) History of esophagogastroduodenoscopy (EGD) (03/06/16) History of excision of lesion (04/02/21) Right Superficial Parotid S/P cholecystectomy S/P insertion of IVC (inferior vena caval) filter (06/26/12) 2011 > [place] Filter Placement Right Groin Dr. Srivastava at [facility] Status post excisional biopsy (07/07/17) Left Inguinal Lymph Node Dr. Anderson at [facility] Status post fine needle aspiration (04/05/21) Left External Iliac Lymph Node under USG Dr. Coreas at [facility] Status post fine needle aspiration (02/08/19) Right Parotid Gland Lesion Family History Grandmother (Maternal) , Passed Age 52 due to Colon Cancer No problems noted. Father , Passed Age 72 due to Lung Cancer, occupation related No problems noted. Mother , Passed Age 84 of unknown cancer No problems noted. Brother , Passed Age 70 of unknown cancer No problems noted. Brother No problems noted. Daughter CLL (chronic lymphocytic leukemia) Son No problems noted. Son No problems noted. Son No problems noted. Aunt , Passed Age 70 due to Breast Cancer No problems noted. 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 How many Children do You have: 4 Other Information That Helps Us Care for You: No Feels Safe at Home: Yes Safety Concerns: Feels Safe At This Time Childhood Exposure to Second-Hand Smoke: Yes (father smoked in home) caffeine: Yes (cola daily) during the past year weight has: remained stable Dental Care, Regularly: Yes Physical Activity Frequency: Does not Exercise Assistive Devices: Cane and Walker Review of Systems Review of Systems: All systems reviewed & are unremarkable except as noted in HPI & below Physical Exam Physical Exam: Constitutional: WD/WN, ill-appearing female, pale, vitals as above, NAD, sitting up in bed, pleasant, conversing easily Head: Normocephalic, Atraumatic Eyes: PERRL, conjunctivae normal, anicteric sclerae ENMT: external ear and nose normal, oropharynx normal Neck: trachea midline, no thyromegaly normal visual inspection Respiratory: normal respiratory effort, lungs clear to auscultation, no wheeze, rales, rhonchi. Normal insp/exp effort, no accessory muscle use Cardiovascular: RRR, no murmur, bilateral lower extremity edema, left lower extremity pretibial erythema and warmth Vessels: no JVD or carotid bruit Chest: normal inspection of chest Abdomen: normal bowel sounds, soft, nontender, no hepatosplenomegaly Musculoskeletal: no cyanosis or clubbing, active range of motion x4 Skin: no rashes, warm and dry normal turgor Neurologic: PERRL, EOMI, accommodation nl, no face palsy, no dysarthria CN's II-XI intact bilaterally and moves all extremities Psychiatric: A+Ox3, euthymic affect Lymphatic: no cervical or axillary lymphadenopathy : Visual inspection reveals nonthrombosed external hemorrhoids, no evidence of abscess or fistula Results & Data Results & Data ([facility]) Vital Signs (Past 12 Hours) Vital Signs Temp Pulse Pulse Resp BP BP Pulse Ox 02/11/22 13:00 77 20 177/78 H 98 02/11/22 11:10 76 20 170/78 H 98 02/11/22 10:10 18 98 02/11/22 09:40 36.1 C L 78 20 191/78 H 100 Diagnostic Findings Chest X-Ray 02/11/22 09:49 XR chest 1V portable CLINICAL HISTORY: SEPSIS. COMPARISON STUDY: 01/12/2022 TECHNIQUE: 1 view of the chest FINDINGS: Single frontal view of the chest demonstrates the cardiomediastinal silhouette to be within normal limits. A Port-A-Cath is in place. The lungs are clear of alveolar opacities. There is no evidence for pleural effusion. There is no evidence for vascular congestion. There is no acute osseous pathology. IMPRESSION: 1. No acute cardiopulmonary disease. ACT 112: Negative or not required by law. Electronically signed by: Jonathan Peguero M.D. 02/11/2022 10:[address] a/p IMPRESSION: 1. No perirectal abscess identified although sensitivity for detection of small abscesses diminished on this unenhanced exam. 2. Colonic diverticulosis. No evidence for acute diverticulitis. No bowel obstruction. 3. Biliary ductal dilatation. This may be related to cholecystectomy however could be correlated with liver function tests. 4. Slight increase in presacral stranding. No associated fluid collection. Medications Administered Medication List Morphine Sulfate (Morphine Sulfate 4 Mg/Ml 1 Ml Carp\\Vial) 4 mg IV Q30M PRN PRN Reason: Pain Stop: 02/25/22 09:48 Last Admin: 02/11/22 13:10 Dose: 4 mg Documented by: [id number] Admin: 02/11/22 10:32 Dose: 4 mg Documented by: [id number] Discontinued Medications Ceftriaxone Sodium (Rocephin) 1,000 mg in 50 mls @ 100 mls/hr IV NOW STA Stop: 02/11/22 12:47 Last Admin: 02/11/22 12:54 Dose: 100 mls/hr Documented by: [id number] Ondansetron HCl (Ondansetron Inj 2 Mg/Ml 2 Ml Vial) 4 mg IV NOW STA Stop: 02/11/22 09:50 Last Admin: 02/11/22 10:31 Dose: 4 mg Documented by: [id number] ECG Rate (beats per minute): 72 Rhythm: normal sinus Findings: + LAFB and + RBBB COVID-19 Results Results COVID-19 Adm Lab Results: RBC 2.30 M/uL (4.2-5.4) L 02/11/22 WBC 4.08 K/uL (4.8-10.8) L 02/11/22 Hgb 6.5 g/dL (12.0-16.0) L* 02/11/22 Hct 19.3 % (37-47) L* 02/11/22 Plt Count 23 K/uL (130-400) L* 02/11/22 Neutrophils (%) (Auto) 80.0 % 02/11/22 Lymphocytes (%) (Auto) 11.5 % 02/11/22 Monocytes # (Auto) 0.34 K/uL (0.11-0.59) 02/11/22 Eosinophils # (Auto) 0.00 K/uL (0-0.5) 02/11/22 Immature Granulocyte % (Auto) 0.2 % 02/11/22 Neutrophils # (Auto) 3.26 K/uL (1.4-6.5) 02/11/22 Lymphocytes # (Auto) 0.47 K/uL (1.2-3.4) L 02/11/22 Monocytes # (Auto) 0.34 K/uL (0.11-0.59) 02/11/22 Eosinophils # (Auto) 0.00 K/uL (0-0.5) 02/11/22 Basophils # (Auto) 0.00 K/uL (0-0.2) 02/11/22 Immature Granulocyte # (Auto) 0.01 K/uL (0.00-0.02) 02/11/22 Giant Platelets 1+ 02/11/22 Na 131 mmol/L (136-145) L 02/11/22 K 3.8 mmol/L (3.5-5.1) 02/11/22 Cl 97 mmol/L (98-107) L 02/11/22 CO2 24 mmol/L (21-32) 02/11/22 Anion Gap 10 (3-11) 02/11/22 BUN 16 mg/dl (6-23) 02/11/22 Creatinine 0.99 mg/dl (0.6-1.2) 02/11/22 BUN/Creatinine Ratio 16.2 (10-20) 02/11/22 Glucose Level 117 mg/dl (70-99(Fasting)) H 02/11/22 Ca 8.7 mg/dl (8.5-10.1) 02/11/22 Total Bilirubin 0.5 mg/dl (0.2-1.0) 02/11/22 AST/SGOT 9 U/L (13-39) L 02/11/22 ALT/SGPT 8 U/L (7-52) 02/11/22 Alkaline Phosphatase 105 U/L (34-104) H 02/11/22 Total Protein 6.2 gm/dl (6.0-8.3) 02/11/22 Albumin 3.5 gm/dl (3.4-5.0) 02/11/22 Globulin 2.7 gm/dl (2.5-4.0) 02/11/22 Albumin/Globulin Ratio 1.3 (0.9-2) 02/11/22 CRP 8.99 mg/dl (0-0.5) H 02/11/22 Procalcitonin 0.66 ng/ml (0-0.5) H 02/11/22 PTT 52.7 Seconds (21.0-31.0) H* 02/11/22 INR 1.2 (0.9-1.1) H 02/11/22 SARS-CoV-2, RNA, NAAT NEGATIVE (NEGATIVE) 02/11/22 Chest X-Ray 02/11/22 Code Status & VTE Plan Code Status FULL CODE VTE Prophylaxis Plan VTE Prophylaxis will be ordered: No Supervising Physician Co-Signing Physician Notes I have seen and examined the patient and have discussed the case with the provider above. I agree with the assessment and plan as stated 76 yo F recently admitted to [facility] for non-surgical treatment of perirectal abscess, discharged on 02/03, presents today with bone pain and found to be anemic in need of a transfusion. She reports a history of bone pain and was having bone pain prior to her recent chemotherapy infusions on 01/29. Review of systems reveals an episode of epistaxis followed by report of coughing up blood the following day likely related to postnasal drip. She has had a 2 g hemoglobin drop in the last couple days since outpatient blood work was performed. She reports chest pain substernally and shortness of breath with exertion consistent with symptomatic anemia. She came in because she overall felt more weak in the last couple of days and although walking with her walker this morning, reports being almost too weak to move. She has some shaking but denies any chills. Pain was not controlled with morphine 4 mg IV given in ER. Trial of Dilaudid now. Since discharge she completed Augmentin x 2 days. Followup with her PCP was on 02/08 and she was diagnosed with a left leg cellulitis and placed on doxycycline for 10 days. A LLE doppler was negative at that time. She suffers from a history of recurrent follicular lymphoma with recent development of pancytopenia with a bone marrow sample revealing 18% myeloblasts. 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 She is on treatment with venetoclax 100mg PO daily, and Vidaza was added recently. A side effect of this medication is bone pain. Lab work includes CBC with white blood cell count of 4 and no evidence of neutropenia, hemoglobin 6.5 hematocrit 19.3 and platelet of 23. INR is 1.2 and PTT is slightly elevated at 53. BMP reveals sodium of 131 potassium 3.8 and normal creatinine with normal glucose. Lactate is 1.6. The patient does not appear septic. Liver function studies are within normal limits. Highly sensitive troponin is mildly elevated at 14.6 but repeat is 13.7 which is reassuring this is not related to ACS. CRP and ESR elevated with CRP of 9. Procalcitonin mildly elevated 0.66 urinalysis reveals no evidence of infection. MRSA screen of the nares nares is negative. On physical exam she is generally weak and ill-appearing. She is mentating normally and has no gross neurologic deficits. She is unable to sit up independently in bed without assistance. Cardiac exam reveals regular rate and rhythm with a 3 out of 6 systolic ejection murmur at the left sternal border. Lungs are clear to auscultation throughout. Abdomen is soft nontender and nondistended. She has mild swelling without edema in her lower extremities bilaterally. Her left lower extremity there is evidence of cellulitis from the mid tibia anteriorly down to the ankle not including the foot. There is no evidence of wound or drainage. Warmth is evident on the left leg compared to right. EKG with normal sinus rhythm and bifascicular block which is chronic. Imaging including a CT of the abdomen pelvis without contrast reveals no evidence of perirectal abscess. Chest x-ray with no acute cardiopulmonary disease. Overall this is an immunosuppressed patient presenting with generalized weakness which is multifactorial in etiology including pancytopenia with symptomatic anemia and ongoing chemotherapy and left lower leg infection. As mentioned above she is not septic, however, she is not tolerating p.o. well and we will switch doxycycline that she was taking as outpatient to Rocephin inpatient. Agree with plan to give her 2 units of blood. As she is not having any active bleeding will not give her platelets until less than 10, or if she begins bleeding she will receive platelet transfusion if platelets are less than 20. This was confirmed with her outpatient oncologist, Dr. Street who also is fine with her continuing her daily chemo medicine. Bone pain will be treated with Dilaudid with likely conversion to ICT SALES ASSISTANT for patient comfort. Monitor for clinical improvement on PCU with repeat CBC in kristopher Francisco DO
--- NOTE | 2022-02-11 14:45 | CT Scan Report ---
CT OF THE ABDOMEN AND PELVIS WITHOUT CONTRAST CLINICAL HISTORY: Previous rectal abscess. COMPARISON STUDY: CT of the abdomen and pelvis January 29, 2022. TECHNIQUE: Axial images of the abdomen and pelvis were obtained without IV contrast. Images were revi ewed in the axial, sagittal, and coronal planes. Automated exposure control was utilized for the jillian dy. A dose lowering technique was utilized adhering to the principles of ALARA. FINDINGS: Lung bases are unremarkable. Evaluation of the abdomen and pelvis is suboptimal on this une nhanced exam. Moderate biliary ductal dilatation is similar to CT of January 29, 2022 but increased sin ce earlier CT of January 10, 2022. The gallbladder is surgically absent. IVC filter is in place. Minima l pneumobilia is again noted. Unenhanced images of the spleen, adrenal glands and pancreas are unrema rkable. There is no peripancreatic infiltration. No peripancreatic fluid collection is present. There are suspected punctate left renal calculi. There is no hydronephrosis. No ureteral calculi are ident ified. There is no evidence for a bowel obstruction. Colonic diverticulosis is noted without evidence for acute diverticulitis. Presacral stranding is again noted. This is increased when compared to CT of January 29, 2022. No perirectal abscess is identified although sensitivity for detection of a small abscess is diminished on this unenhanced exam. Pelvic collaterals are again noted. Old T12 compressio n fracture is noted. No pneumatosis, free air or portal venous gas is present. IMPRESSION: 1. No perirectal abscess identified although sensitivity for detection of small abscesses diminished on this unenhanced exam. 2. Colonic diverticulosis. No evidence for acute diverticulitis. No bowel obstruction. 3. Biliary ductal dilatation. This may be related to cholecystectomy however could be correlated with liver function tests. 4. Slight increase in presacral stranding. No associated fluid collection. ACT 112: Negative or not required by law. Electronically signed by: Stveenson Coreas M.D. 02/11/2022 2:44 PM
[2022-02-11] MEDS ORDERED: MAGNESIUM HYDROXIDE SUSP 30 ML UDC PO PRN (14:49)
[2022-02-11] MEDS ORDERED: POLYETHYLENE (MIRALAX) 17 GM PACK PO PRN (14:49)
[2022-02-11] MEDS ORDERED: oxyCODONE HCL IR 5 MG TAB (IMMEDIATE RELEASE) PO PRN (14:49)
[2022-02-11] MEDS ORDERED: MoRPHine SULFATE 2 MG/ML CARP IV PRN (14:49)
[2022-02-11] MEDS ORDERED: ALUMINUM/MAGNESIUM SUSP 30 ML UDC PO PRN (14:49)
[2022-02-11] MEDS: HYDROmorphone INJ 0.5 MG/0.5 ML SYR IV PRN ×2 (15:38→17:47)
--- NOTE | 2022-02-11 15:47 | Electrocardiogram Report ---
Test Reason : Blood Pressure : / mmHG Vent. Rate : 072 BPM Atrial Rate : 072 BPM P-R Int : 172 ms QRS Dur : 138 ms QT Int : 468 ms P-R-T Axes : 043 -57 033 degrees QTc Int : 512 ms Normal sinus rhythm Right bundle branch block Left anterior fascicular block Bifascicular block Abnormal ECG When compared with ECG of 29-JAN-2022 16:04, No significant change was found Confirmed by Juan Atkinson ([id number]) on 02/11/2022 3:46:54 PM Referred By: REFERRED SELF Confirmed By:Juan Atkinson
[2022-02-11 15:55] LABS: Appearance Urine Clear (Clear); Bacteria Urine Automated Negative (Negative); Bilirubin Urine Negative (Negative); Blood Urine Trace (Negative); Color Urine Yellow; Epithelial Cell Urine Auto >30 /lpf (0-5); Glucose Urine UA Negative (Negative); Ketones Urine Negative (Negative); Leukocyte Esterase Urine Negative (Negative); Nitrite Urine Negative (Negative); Protein Urine Negative (Negative); RBC Urine Automated 0-4 /hpf (0-4); Specific Gravity Urine 1.017 (1.000-1.030); Urobilinogen Urine Negative (Negative)
[2022-02-11] MEDS ORDERED: GABAPENTIN~ORDER AWAITING ACTION SCH (16:00)
[2022-02-11] MEDS: [UNRECOGNIZED DRUG - OTHER] SCH (17:59)
[2022-02-11] MEDS ORDERED: Nursing to Pharmacy Communication SCH (18:30)
[2022-02-11] MEDS ORDERED: NALOXONE HCL 0.4 MG/1 ML VIAL/CARP IV PRN (18:46)
[2022-02-11] MEDS ORDERED: HYDROmorphone PCA 30 MG/30 ML IV PRN (18:46)
[2022-02-11] MEDS: ACYCLOVIR 400 MG TAB PO SCH (21:18)
[2022-02-11] MEDS: VENLAFAXINE HCL XR 75 MG CAPXR PO SCH (21:21)
[2022-02-11] MEDS: DOCUSATE SODIUM 100 MG CAP PO SCH (21:22)
[2022-02-11] MEDS: GABAPENTIN 300 MG CAP PO SCH (21:23)
[2022-02-11 21:49] LABS: Hematocrit (blood only) 25.6 % (37-47); Hemoglobin 8.6 g/dL (12.0-16.0); Mean Corpuscular Hemoglobin 28.8 pg (25-34); Mean Corpuscular Hgb Conc 33.6 g/dL (32-36); Mean Corpuscular Volume 85.6 fL (80-100); Mean Platelet Volume 10.1 fL (7.4-10.4); Platelet Count 17 K/uL (130-400); RDW Coefficient of Variation 14.7 % (11.5-14.5); RDW Standard Deviation 46.1 fL (36.4-46.3); Red Blood Count 2.99 M/uL (4.2-5.4); White Blood Count 2.61 K/uL (4.8-10.8)
[2022-02-11 21:51] LABS: Platelet Estimate SIGNIFIC DECREASED (Normal)
[2022-02-11] MEDS: SODIUM CHLORIDE 0.9% 1000ML 1,000 ML IV SCH (22:26)
[2022-02-12] MEDS: [UNRECOGNIZED DRUG - OTHER] SCH ×3 (03:23→20:11)
[2022-02-12] MEDS: LEVOTHYROXINE SODIUM 125 MCG TABLET PO SCH (06:02)
[2022-02-12 07:06] LABS: Albumin Globulin Ratio 1.3 (0.9-2); Albumin Level 3.1 gm/dl (3.4-5.0); BUN Creatinine Ratio 15.5 (10-20); Bilirubin,Total 0.5 mg/dl (0.2-1.0); Calcium 8.2 mg/dl (8.5-10.1); Creatinine Clr Calc Pharmacy 47.1 ml/min; Est GFR (African American) 56.1 ml/min; Est GFR (Non-African American) 48.4 ml/min; Globulin 2.4 gm/dl (2.5-4.0); Magnesium 1.9 mg/dl (1.7-2.4); Potassium 3.9 mmol/L (3.5-5.1); Total Protein 5.5 gm/dl (6.0-8.3)
[2022-02-12 07:13] LABS: Hematocrit (blood only) 27.6 % (37-47); Hemoglobin 9.5 g/dL (12.0-16.0); Mean Corpuscular Hemoglobin 29.3 pg (25-34); Mean Corpuscular Hgb Conc 34.4 g/dL (32-36); Mean Corpuscular Volume 85.2 fL (80-100); Platelet Count 13 K/uL (130-400); RDW Coefficient of Variation 14.7 % (11.5-14.5); RDW Standard Deviation 46.1 fL (36.4-46.3); Red Blood Count 3.24 M/uL (4.2-5.4); White Blood Count 2.41 K/uL (4.8-10.8)
[2022-02-12 07:43] LABS: Microcytosis Present
[2022-02-12 07:45] LABS: ALC (manual) 0.31 K/uL (1.2-3.4); ANC (manual) 2.01 K/uL (1.4-6.5); Blast # (manual) 0.06 K/uL (0-0); Blast Cells % (manual) 2.6 %; Lymphocytes # (manual) 0.31 K/uL (1.2-3.4); Monocytes # (manual) 0.02 K/uL (0.11-0.59); Monocytes % (manual) 0.9 %; Neutrophils # (manual) 2.01 K/uL (1.4-6.5); Neutrophils % (manual) 83.5 %
[2022-02-12] MEDS: GABAPENTIN 300 MG CAP PO SCH ×4 (08:23→20:25)
[2022-02-12] MEDS: SPIRONOLACTONE 12.5 MG TAB PO SCH (08:23)
[2022-02-12] MEDS: allopurinoL 300 MG TAB PO SCH (08:24)
[2022-02-12] MEDS: ACYCLOVIR 400 MG TAB PO SCH ×2 (08:24→20:24)
[2022-02-12] MEDS: DOCUSATE SODIUM 100 MG CAP PO SCH ×2 (08:24→20:23)
[2022-02-12] MEDS: AMIODARONE 200 MG TAB PO SCH (08:24)
[2022-02-12] MEDS: DOCUSATE SODIUM/SENNA 50/8.6MG TAB PO SCH (08:24)
[2022-02-12] MEDS: PANTOprazole 40 MG TAB PO SCH (08:25)
[2022-02-12] MEDS: FLUTICASONE PROPIONATE NA SPR 16 GM BTL SCH (08:25)
[2022-02-12] MEDS: ROSUVASTATIN CALCIUM 20 MG TAB PO SCH (08:25)
[2022-02-12] MEDS: METOPROLOL SUCC 25MG EXT REL TAB PO SCH (08:25)
[2022-02-12] MEDS: cefTRIAXone SODIUM 2,000 MG in DEXTROSE 5% 50 ML IV SCH (12:46)
--- NOTE | 2022-02-12 17:03 | Hospitalist Progress Note ---
Date of Service February 12, 2022 Assessment & Plan (1) Cellulitis of left leg: (2) Symptomatic anemia: (3) AML (acute myeloblastic leukemia): (4) HTN (hypertension): (5) Hypothyroidism: (6) Pancytopenia due to antineoplastic chemotherapy: (7) Follicular lymphoma: (8) Immunosuppressed status: Plan: Patient is a 76 yr female with H/O AML, recurrent follicular lymphoma, history of mucoepidermoid carcinoma, pancytopenia, PAF, HTN, HLD, CKD stage III, thoracic aortic aneurysm, history of DVT status post IVCF, depression with anxiety who presents to ED secondary to bone pain x2 to 3 weeks. Pt does not meet SIRS/SEPSIS criteria on admission. Symptomatic anemia Pancytopenia in setting of AML, hx of Recurrent Follicular Lymphoma, recent bone marrow bx showed 18% myeloblasts Thrombocytopenia S/P 2 units PRBCs Monitor CBC Follows with [facility] oncology as outpatient Plan to transfuse platelets if less than 10K or any acute bleeding Currently on venetoclax daily, last chemo 01/29 Continue with acyclovir and Cresemba Hold cefpodoxime while on antibiotics Continue current medications Left lower extremity cellulitis Blood cultures pending Negative MRSA Continue IV Rocephin Improving PAF Continue amiodarone and metoprolol Currently normal sinus rhythm Off anticoagulants in setting of pancytopenia Bilateral lower extremity edema Received 40 mg IV Lasix continue metoprolol and Aldactone Last echo was suggestive of grade 2 diastolic dysfunction Diuresis as needed No signs of acute decompensation Elevated High Sensitivity troponin Likely demand ischemia in setting of anemia, infection CKD III Cr at baseline monitor avoid nephrotoxic agents DVT Px: SCDs for now Code Status FULL CODE PCP: Joanne Admission and Anticipated Discharge Date Admission Date: February 11, 2022 Subjective Patient is seen and examined at bedside Left leg redness, pain, swelling slowly improving No acute bleeding issues Epistaxis resolved Bone pain under control while on pain pump Denies any chest pain, shortness of breath, dizziness, nausea, abdominal pain Review of Systems Review of Systems: All systems reviewed & are unremarkable except as noted in Subjective Physical Exam Physical Exam: Physical Exam: Vitals signs as noted above General Appearance:Moderately built and nourished, no apparent distress Head: normocephalic, Atraumatic Eyes: normal inspection, EOMI Neck: supple, Trachea midline Respiratory/Chest: Normal breath sounds, CTA, No accessory muscle use Cardiovascular: S1, S2, No murmur Abdomen/GI:Soft, Non tender, Bowel sounds present Extremities/Musculoskeletal:normal inspection, +LE edema, left lower extremity erythema improving Neurologic/Psych:AAOX3, grossly no focal neurological deficits Skin: normal color, warm Results & Data Results & Data ([facility]) Vital Signs (Past 12 Hours) Vital Signs Temp Pulse Pulse Resp BP Pulse Ox 02/12/22 15:10 36.7 C 67 17 123/82 97 02/12/22 15:00 66 02/12/22 10:53 36.7 C 61 19 102/55 L 93 02/12/22 09:27 62 02/12/22 06:57 36.5 C 61 16 122/58 L 95 Laboratory Results Short CBC 02/11/22 02/12/22 Range/Units 20:45 05:54 WBC 2.61 L 2.41 L (4.8-10.8) K/uL Hgb 8.6 L 9.5 L (12.0-16.0) g/dL Hct 25.6 L 27.6 L (37-47) % Plt Count 17 L* 13 L* (130-400) K/uL BMP 02/12/22 05:54 Sodium 131 L Potassium 3.9 Chloride 97 L Carbon Dioxide 28 BUN 17 Creatinine 1.10 Glucose 92 Calcium 8.2 L Liver Function 02/12/22 Range/Units 05:54 Total Bilirubin 0.5 (0.2-1.0) mg/dl AST 10 L (13-39) U/L ALT 9 (7-52) U/L Alkaline Phosphatase 152 H (34-104) U/L Albumin 3.1 L (3.4-5.0) gm/dl
[2022-02-12] MEDS: CRESEMBA PO SCH (17:22)
[2022-02-12] MEDS: VENLAFAXINE HCL XR 75 MG CAPXR PO SCH (20:25)
[2022-02-12] MEDS: SODIUM CHLORIDE 0.9% 1000ML 1,000 ML IV SCH (22:02)
[2022-02-12] MEDS: SODIUM CHLORIDE 0.9% 500 ML IV SCH (22:04)
[2022-02-13] MEDS: LEVOTHYROXINE SODIUM 125 MCG TABLET PO SCH (05:58)
[2022-02-13 08:07] LABS: Albumin Globulin Ratio 1.3 (0.9-2); BUN Creatinine Ratio 21.2 (10-20); Bilirubin,Total 0.3 mg/dl (0.2-1.0); Calcium 8.5 mg/dl (8.5-10.1); Creatinine Clr Calc Pharmacy 52.5 ml/min; Est GFR (African American) 63.7 ml/min; Globulin 2.4 gm/dl (2.5-4.0); Magnesium 1.9 mg/dl (1.7-2.4); Potassium 4.1 mmol/L (3.5-5.1); Total Protein 5.4 gm/dl (6.0-8.3)
--- NOTE | 2022-02-13 08:35 | Pain Management Consultation ---
Date of Consultation February 13, 2022 Assessment & Plan (1) Follicular lymphoma: (2) Pancytopenia: (3) Cellulitis of left leg: (4) AML (acute myeloblastic leukemia): 1. I have emphasized the importance to use the oral Oxycodone 5-10 mg x 6 hours for pain. 2. The Dilaudid POWER ELECTRONICS ENGINEER will remain as backup for today. Only use if needed for breakthrough pain. 3. Recommend discontinuation of the Dilaudid POWER ELECTRONICS ENGINEER tomorrow and provide Dilaudid 0.5mg IV x 3 hours PRN. Plan has been discussed with the patient and she is understanding. History of Present Illness Attending Physician: Juwan Hogue MD History of Present Illness Mrs. Link is a 76 year old female that presented to the [facility] for long bone pain x 3 weeks. History of AML, recurrent follicular lymphoma, and recent bone marrow dx showing 18% myeloblasts. She does have a cellulitis of the left leg. She has been receiving Dilaudid POWER ELECTRONICS ENGINEER and used 9.5mg over the last 24 hours with adequate relief of pain. Patient does have Oxycodone ordered which she has not yet tried. She denies any side effects from the medication. No confusion, constipation, drowsiness. Pain Assessment Full Body Front + Back: 2 1. Pain scale - at its best (0-10): 2 Pain scale - at its worst (0-10): 8 Allergies Allergy/AdvReac Type Severity Reaction Status Date / Time No Known Allergies Allergy Verified 01/22/22 09:04 Home Medications Medication Instructions Recorded Confirmed Type fluticasone propionate 50 2 spray INTRANASAL QAM 08/03/19 02/11/22 History mcg/actuation nasal spray,suspension (Flonase Allergy Relief) pantoprazole 40 mg tablet,delayed 40 mg PO QAM 08/03/19 02/11/22 History release (Protonix) venlafaxine 75 mg capsule,extended 75 mg PO HS 08/03/19 02/11/22 History release 24 hr (Effexor XR) diclofenac sodium 1 % topical gel 4 g TOPICAL QID PRN 10/21/19 02/11/22 History (Voltaren Arthritis Pain) fluticasone furoate 100 1 inh INHALATION QAM PRN 05/02/21 02/11/22 History mcg-vilanterol 25 mcg/dose inhalation powder (Breo Ellipta) acyclovir 400 mg tablet 400 mg PO BID 09/17/21 02/11/22 History allopurinol 300 mg tablet 300 mg PO DAILY 12/30/21 02/11/22 History cefpodoxime 200 mg tablet 200 mg PO Q12 12/30/21 02/11/22 History isavuconazonium sulfate 186 mg 372 mg PO DAILY 12/30/21 02/11/22 History capsule (Cresemba) levothyroxine 125 mcg tablet 125 mcg PO DAILYBB 12/30/21 02/11/22 History ondansetron HCl 8 mg tablet 8 mg PO Q8H PRN 12/30/21 02/11/22 History amiodarone 200 mg tablet 200 mg PO DAILY 01/05/22 02/11/22 History metoprolol succinate 25 mg 12.5 mg PO DAILY 01/05/22 02/11/22 History tablet,extended release 24 hr rosuvastatin 20 mg tablet 20 mg PO DAILY 01/05/22 02/11/22 History venetoclax 100 mg tablet 100 mg PO DAILY 01/05/22 02/11/22 History (Venclexta) acetaminophen 325 mg tablet 650 mg PO Q6H PRN #30 tab 01/15/22 02/11/22 Rx sennosides 8.6 mg-docusate sodium 1 tab PO QAM PRN #30 tab 01/15/22 02/11/22 Rx 50 mg tablet (Senokot-S) gabapentin 300 mg capsule 300 mg PO 5XD 01/29/22 02/11/22 History spironolactone 25 mg tablet 12.5 mg PO DAILY 01/29/22 02/11/22 History cyclobenzaprine 5 mg tablet 5 mg PO BID PRN #6 tab 02/03/22 02/11/22 Rx Pain History Pain Intensity Pain scale - at its best (0-10): 2 Pain scale - at its worst (0-10): 8 Patient History Medical History Acute hyponatremia Acute on chronic anemia AML (acute myeloblastic leukemia) Asthma Well controlled CKD (chronic kidney disease), stage III COPD (chronic obstructive pulmonary disease) Diverticulitis Hx Esophageal reflux Essential tremor Follicular lymphoma History of DVT (deep vein thrombosis) 2007 > in setting prolonged inactivity from hospital admission HLD (hyperlipidemia) HTN (hypertension) Hypothyroidism Pancreatitis Hx Pancytopenia Pancytopenia Post-herpetic trigeminal neuralgia Reason for gabapentin Thoracic aortic aneurysm without rupture Ascending thoracic aorta is ectatic up to 4.4 cm (Previously measured 4.1 cm in 2012. Slowly increasing in size) per 06/2020 CTA, under surveillance by Dr. Cohn Surgical History H/O parotidectomy (11/2003) H/O: hysterectomy History of bone marrow biopsy (10/2011) Jul 2021 History of cataract surgery bilat History of colonoscopy (02/16/19) History of cystoscopy (06/02/12) History of dilatation and curettage History of ERCP (06/21/08) History of esophagogastroduodenoscopy (EGD) (03/06/16) History of excision of lesion (04/02/21) Right Superficial Parotid S/P cholecystectomy S/P insertion of IVC (inferior vena caval) filter (06/26/12) 2011 > Jordon Filter Placement Right Groin Dr. Srivastava at [facility] Status post excisional biopsy (07/07/17) Left Inguinal Lymph Node Dr. Anderson at [facility] Status post fine needle aspiration (04/05/21) Left External Iliac Lymph Node under USG Dr. Coreas at [facility] Status post fine needle aspiration (02/08/19) Right Parotid Gland Lesion Family History Grandmother (Maternal) , Passed Age 52 due to Colon Cancer No problems noted. Father , Passed Age 72 due to Lung Cancer, occupation related No problems noted. Mother , Passed Age 84 of unknown cancer No problems noted. Brother , Passed Age 70 of unknown cancer No problems noted. Brother No problems noted. Daughter CLL (chronic lymphocytic leukemia) Son No problems noted. Son No problems noted. Son No problems noted. Aunt , Passed Age 70 due to Breast Cancer No problems noted. 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 She is resting comfortably in the hospital bed eating breakfast. HEAD/FACE: Normocephalic and atraumatic. EYES: No drainage or conjunctival injection. ENT: Nose without bleeding or discharge. Oral mucosa moist. NECK: Full ROM without apparent pain. No swelling or masses noted. RESPIRATORY: Patient with unlabored breathing. No signs of respiratory distress. CHEST/AXILLA: Chest movement symmetrical. No deformities noted. ABDOMEN/GI: No distension BACK: Moves without difficulty SKIN: + LLE erythema. MS/EXTREMITY: Moving extremities appropriately. NEURO: Alert and appears oriented. Speech is fluent. Cranial Nerves are grossly intact. PSYCH: Alert, pleasant, affect is calm
[2022-02-13 08:48] LABS: Hematocrit (blood only) 27.5 % (37-47); Hemoglobin 9.2 g/dL (12.0-16.0); Mean Corpuscular Hemoglobin 28.3 pg (25-34); Mean Corpuscular Hgb Conc 33.5 g/dL (32-36); Mean Corpuscular Volume 84.6 fL (80-100); Mean Platelet Volume 10.2 fL (7.4-10.4); Platelet Count 11 K/uL (130-400); RDW Coefficient of Variation 14.9 % (11.5-14.5); RDW Standard Deviation 46.4 fL (36.4-46.3); Red Blood Count 3.25 M/uL (4.2-5.4); White Blood Count 2.58 K/uL (4.8-10.8)
[2022-02-13 09:14] LABS: Eosinophils # (auto) 0.01 K/uL (0-0.5); Eosinophils % (auto) 0.4 %; Lymphocytes # (auto) 0.61 K/uL (1.2-3.4); Lymphocytes % (auto) 23.6 %; Monocytes # (auto) 0.21 K/uL (0.11-0.59); Monocytes % (auto) 8.1 %; Neutrophils # (auto) 1.75 K/uL (1.4-6.5); Neutrophils % (auto) 67.9 %; Platelet Estimate SIGNIFIC DECREASED (Normal)
[2022-02-13] MEDS: ACYCLOVIR 400 MG TAB PO SCH ×2 (09:23→20:25)
[2022-02-13] MEDS: METOPROLOL SUCC 25MG EXT REL TAB PO SCH (09:23)
[2022-02-13] MEDS: DOCUSATE SODIUM 100 MG CAP PO SCH ×2 (09:23→20:25)
[2022-02-13] MEDS: GABAPENTIN 300 MG CAP PO SCH ×4 (09:23→20:26)
[2022-02-13] MEDS: SPIRONOLACTONE 12.5 MG TAB PO SCH (09:23)
[2022-02-13] MEDS: PANTOprazole 40 MG TAB PO SCH (09:24)
[2022-02-13] MEDS: ROSUVASTATIN CALCIUM 20 MG TAB PO SCH (09:24)
[2022-02-13] MEDS: allopurinoL 300 MG TAB PO SCH (09:24)
[2022-02-13] MEDS: VENETOCLAX PO SCH (09:24)
[2022-02-13] MEDS: FLUTICASONE PROPIONATE NA SPR 16 GM BTL SCH (09:24)
[2022-02-13] MEDS: DOCUSATE SODIUM/SENNA 50/8.6MG TAB PO SCH (09:24)
[2022-02-13] MEDS: AMIODARONE 200 MG TAB PO SCH (09:24)
[2022-02-13] MEDS: cefTRIAXone SODIUM 2,000 MG in DEXTROSE 5% 50 ML IV SCH (12:35)
[2022-02-13] MEDS: oxyCODONE HCL IR 5 MG TAB (IMMEDIATE RELEASE) PO PRN ×2 (15:27→23:38)
[2022-02-13] MEDS: CRESEMBA PO SCH (17:30)
--- NOTE | 2022-02-13 18:47 | Hospitalist Progress Note ---
Date of Service February 13, 2022 delayed entry date of service noted above Assessment & Plan (1) Cellulitis of left leg: (2) Symptomatic anemia: (3) AML (acute myeloblastic leukemia): (4) HTN (hypertension): (5) Hypothyroidism: (6) Pancytopenia due to antineoplastic chemotherapy: (7) Follicular lymphoma: (8) Immunosuppressed status: Plan: per Dr. Wilkinson's notes with addendum: Patient is a 76 yr female with H/O AML, recurrent follicular lymphoma, history of mucoepidermoid carcinoma, pancytopenia, PAF, HTN, HLD, CKD stage III, thoracic aortic aneurysm, history of DVT status post IVCF, depression with anxiety who presents to ED secondary to bone pain x2 to 3 weeks. Pt does not meet SIRS/SEPSIS criteria on admission. Symptomatic anemia Pancytopenia in setting of AML, hx of Recurrent Follicular Lymphoma, recent bone marrow bx showed 18% myeloblasts Thrombocytopenia S/P 2 units PRBCs Monitor CBC Follows with [facility] oncology as outpatient Plan to transfuse platelets if less than 10K or any acute bleeding Currently on venetoclax daily, last chemo 01/29 Continue with acyclovir and Cresemba Hold cefpodoxime while on antibiotics Continue current medications 02/13 Plt 9k 1 unit Plt ordered Left lower extremity cellulitis Blood cultures pending Negative MRSA Continue IV Rocephin Improving PAF Continue amiodarone and metoprolol Currently normal sinus rhythm Off anticoagulants in setting of pancytopenia Bilateral lower extremity edema Received 40 mg IV Lasix continue metoprolol and Aldactone Last echo was suggestive of grade 2 diastolic dysfunction Diuresis as needed Elevated High Sensitivity troponin Likely demand ischemia in setting of anemia, infection CKD III Cr at baseline monitor avoid nephrotoxic agents DVT Px: SCDs for now Code Status FULL CODE PCP: Joanne Admission and Anticipated Discharge Date Admission Date: February 11, 2022 Subjective ff up for pancytopenia, AML, etc seen resting in bed, comfortable appears weak but smiling, pleasant states she feels ok overall no chest pain, dyspnea, palpitations, dizziness no bleeding no other symptoms Review of Systems Review of Systems: all noted and negative except for above Physical Exam Physical Exam: General- oriented x 3, not in distress, speaks in sentences with no effort or accessory muscle use somewhat weak Head- atraumatic Eyes- PERRL, EOMI, anicteric ENT- oropharynx clear Neck- supple, no JVD, no adenopathy, no thyromegaly; carotids +2/2, no bruits appreciated Lungs- clear to auscultation bilaterally, no rales/wheezes Heart- normal rate, regular rhythm; no murmur, no gallop, no rub appreciated Abdomen- normal bowel sounds, nondistended, soft, nontender, no masses or hepatosplenomegaly Extremities- trace pretibial edema, no calf tenderness; peripheral pulses intact (+) mild erythema on the left lower leg- receding from the demarcation line Neuro- alert, oriented x 3; CN 2-12 grossly intact; motor 5/5 bilaterally;s ensation 100% on all extremities; no other gross focal neurologic deficits Skin- warm & dry Results & Data Results & Data ([facility]) Vital Signs (Past 12 Hours) Vital Signs Temp Pulse Pulse Resp BP Pulse Ox Pulse Ox 02/13/22 15:07 36.9 C 77 18 118/54 L 96 02/13/22 15:00 81 02/13/22 14:00 94 02/13/22 11:02 36.6 C 70 18 123/59 L 95 02/13/22 08:00 68 02/13/22 07:00 36.6 C 77 16 120/57 L 94 all noted and reviewed including below
[2022-02-13 18:51] LABS: Mean Corpuscular Hgb Conc 34.6 g/dL (32-36); Mean Platelet Volume 10.4 fL (7.4-10.4); Platelet Count 9 K/uL (130-400)
[2022-02-13 18:53] LABS: Eosinophils # (auto) 0.01 K/uL (0-0.5); Eosinophils % (auto) 0.4 %; Hemoglobin 9.7 g/dL (12.0-16.0); Immature Granulocytes # (auto) 0.01 K/uL (0.00-0.02); Immature Granulocytes % (auto) 0.4 %; Lymphocytes # (auto) 0.62 K/uL (1.2-3.4); Lymphocytes % (auto) 22.9 %; Mean Corpuscular Hemoglobin 29.1 pg (25-34); Mean Corpuscular Volume 84.1 fL (80-100); Monocytes # (auto) 0.14 K/uL (0.11-0.59); Monocytes % (auto) 5.2 %; Neutrophils # (auto) 1.93 K/uL (1.4-6.5); Neutrophils % (auto) 71.1 %; Poikilocytosis Present; RDW Coefficient of Variation 14.7 % (11.5-14.5); RDW Standard Deviation 45.6 fL (36.4-46.3); Red Blood Count 3.33 M/uL (4.2-5.4); White Blood Count 2.71 K/uL (4.8-10.8)
[2022-02-13 19:54] LABS: Fibrinogen 566 mg/dl (184-400)
[2022-02-13] MEDS: VENLAFAXINE HCL XR 75 MG CAPXR PO SCH (20:25)
[2022-02-13 20:27] LABS: D Dimer 1640 ug/L FEU (0-500)
[2022-02-13] MEDS: SODIUM CHLORIDE 0.9% 500 ML IV SCH (23:33)
[2022-02-14] MEDS: LEVOTHYROXINE SODIUM 125 MCG TABLET PO SCH (05:59)
[2022-02-14 07:08] LABS: Hematocrit (blood only) 24.4 % (37-47); Hemoglobin 8.5 g/dL (12.0-16.0); Mean Corpuscular Hemoglobin 29.4 pg (25-34); Mean Corpuscular Hgb Conc 34.8 g/dL (32-36); Mean Corpuscular Volume 84.4 fL (80-100); Mean Platelet Volume 8.7 fL (7.4-10.4); Platelet Count 23 K/uL (130-400); RDW Coefficient of Variation 14.7 % (11.5-14.5); RDW Standard Deviation 45.9 fL (36.4-46.3); Red Blood Count 2.89 M/uL (4.2-5.4); White Blood Count 2.05 K/uL (4.8-10.8)
[2022-02-14 07:28] LABS: Eosinophils # (auto) 0.01 K/uL (0-0.5); Eosinophils % (auto) 0.5 %; Immature Granulocytes # (auto) 0.01 K/uL (0.00-0.02); Immature Granulocytes % (auto) 0.5 %; Lymphocytes # (auto) 0.55 K/uL (1.2-3.4); Lymphocytes % (auto) 26.8 %; Monocytes # (auto) 0.14 K/uL (0.11-0.59); Monocytes % (auto) 6.8 %; Neutrophils # (auto) 1.34 K/uL (1.4-6.5); Neutrophils % (auto) 65.4 %; Platelet Estimate SIGNIFIC DECREASED (Normal)
[2022-02-14 07:29] LABS: BUN Creatinine Ratio 20.2 (10-20); Calcium 8.6 mg/dl (8.5-10.1); Creatinine Clr Calc Pharmacy 59.2 ml/min; Est GFR (African American) 72.5 ml/min; Est GFR (Non-African American) 62.5 ml/min; Potassium 4.3 mmol/L (3.5-5.1)
--- NOTE | 2022-02-14 08:34 | Pain Management Progress Note ---
Date of Service February 14, 2022 Assessment & Plan (1) Cellulitis of left leg: Plan: * For long acting pain relief I have added a Fentanyl Patch to the patient's pain regimen. * Continue Oxycodone 5-10mg x 6 hours PRN pain. * Dilaudid UPHOLSTERER ASSEMBLY LINE has been discontinued. * Dilaudid 0.5mg x 4 hours if the above medications are not providing adequate pain relief. * Will check on the patient's progress tomorrow. Admission and Anticipated Discharge Date Admission Date: February 11, 2022 Albert Brito is a 76 year old female that is reporting mild improvement in leg pain since yesterday. She has taken the Oxycodone 10mg twice yesterday with moderate relief. She did continue to use the Dilaudid UPHOLSTERER ASSEMBLY LINE at 9.5 mg over the last 24 hours. Patient denies any side effects to the medication. No constipation, drowsiness, confusion. Physical Exam Physical Exam: GENERAL: This is a 76 year old female that appears in no acute distress. She is resting comfortably in the hospital bed eating breakfast. HEAD/FACE: Normocephalic and atraumatic. EYES: No drainage or conjunctival injection. ENT: Nose without bleeding or discharge. Oral mucosa moist. NECK: Full ROM without apparent pain. No swelling or masses noted. RESPIRATORY: Patient with unlabored breathing. No signs of respiratory distress. CHEST/AXILLA: Chest movement symmetrical. No deformities noted. ABDOMEN/GI: No distension BACK: Moves without difficulty SKIN: + LLE erythema. MS/EXTREMITY: Moving extremities appropriately. NEURO: Alert and appears oriented. Speech is fluent. Cranial Nerves are grossly intact. PSYCH: Alert, pleasant, affect is calm
[2022-02-14] MEDS ORDERED: fentaNYL 12 MCG/HR TDSY TD SCH (09:00)
[2022-02-14] MEDS: DOCUSATE SODIUM 100 MG CAP PO SCH ×2 (09:03→21:27)
[2022-02-14] MEDS: PANTOprazole 40 MG TAB PO SCH (09:03)
[2022-02-14] MEDS: GABAPENTIN 300 MG CAP PO SCH ×4 (09:03→21:26)
[2022-02-14] MEDS: ROSUVASTATIN CALCIUM 20 MG TAB PO SCH (09:04)
[2022-02-14] MEDS: ACYCLOVIR 400 MG TAB PO SCH ×2 (09:04→21:26)
[2022-02-14] MEDS: METOPROLOL SUCC 25MG EXT REL TAB PO SCH (09:04)
[2022-02-14] MEDS: SPIRONOLACTONE 12.5 MG TAB PO SCH (09:04)
[2022-02-14] MEDS: FLUTICASONE PROPIONATE NA SPR 16 GM BTL SCH (09:04)
[2022-02-14] MEDS: DOCUSATE SODIUM/SENNA 50/8.6MG TAB PO SCH (09:04)
[2022-02-14] MEDS: AMIODARONE 200 MG TAB PO SCH (09:04)
[2022-02-14] MEDS: allopurinoL 300 MG TAB PO SCH (09:04)
[2022-02-14] MEDS: VENETOCLAX PO SCH (09:05)
[2022-02-14] MEDS: cefTRIAXone SODIUM 2,000 MG in DEXTROSE 5% 50 ML IV SCH (11:31)
[2022-02-14] MEDS: oxyCODONE HCL IR 5 MG TAB (IMMEDIATE RELEASE) PO PRN ×2 (11:52→17:36)
[2022-02-14] MEDS ORDERED: FUROSEMIDE 40 MG/4 ML VIAL IV ONE (15:39)
[2022-02-14] MEDS: ACETAMINOPHEN 325 MG TAB PO PRN ×2 (15:44→21:28)
[2022-02-14] MEDS: CHECK fentaNYL PATCH PLACEMENT SCH (15:45)
[2022-02-14] MEDS: CRESEMBA PO SCH (15:46)
--- NOTE | 2022-02-14 16:45 | Hospitalist Progress Note ---
Date of Service February 14, 2022 Assessment & Plan (1) Cellulitis of left leg: (2) Symptomatic anemia: (3) AML (acute myeloblastic leukemia): (4) HTN (hypertension): (5) Hypothyroidism: (6) Pancytopenia due to antineoplastic chemotherapy: (7) Follicular lymphoma: (8) Immunosuppressed status: Plan: per Dr. Wilkinson's notes with addendum: Patient is a 76 yr female with H/O AML, recurrent follicular lymphoma, history of mucoepidermoid carcinoma, pancytopenia, PAF, HTN, HLD, CKD stage III, thoracic aortic aneurysm, history of DVT status post IVCF, depression with anxiety who presents to ED secondary to bone pain x2 to 3 weeks. Pt does not meet SIRS/SEPSIS criteria on admission. Symptomatic anemia Pancytopenia in setting of AML, hx of Recurrent Follicular Lymphoma, recent bone marrow bx showed 18% myeloblasts Thrombocytopenia S/P 2 units PRBCs Monitor CBC Follows with [facility] oncology as outpatient Plan to transfuse platelets if less than 10K or any acute bleeding Currently on venetoclax daily, last chemo 01/29 Continue with acyclovir and Cresemba Hold cefpodoxime while on antibiotics Continue current medications 02/14 1 unit plt given plt improved to 23 from 8 Hg slighlty lower peripheral smear: (+) blasts DIC work up: LDH negative Fibrinogen 566, Fibrin products <10, D dimer 1640 no signs of infection repeat CBC tomorrow Lasix 40mg IV today Left lower extremity cellulitis Blood cultures : negative Negative MRSA Continue IV Rocephin Improving PAF Continue amiodarone and metoprolol Currently normal sinus rhythm Off anticoagulants in setting of pancytopenia Bilateral lower extremity edema Grade 2 Diastolic CHF Received 40 mg IV Lasix continue metoprolol and Aldactone Last echo was suggestive of grade 2 diastolic dysfunction Lasix 40mg IV today monitor Elevated High Sensitivity troponin Likely demand ischemia in setting of anemia, infection CKD III Cr at baseline monitor avoid nephrotoxic agents DVT Px: SCDs for now Code Status FULL CODE PCP: Joanne plan of care discussed with patient in detail and at length all questions answered she is understanding, agreeable, comfortable with the plan of care Admission and Anticipated Discharge Date Admission Date: February 11, 2022 Subjective ff up for pancytopenia, AML, etc seen resting in bed, comfortable smiling states pain is well controlled so far, even off INFORMATION TECHNOLOGY TECHNICIAN pump no chest pain, dyspnea, palpitations, dizziness no bleeding no abdominal/pain, cough, feve/chills no other symptoms Review of Systems Review of Systems: all noted and negative except for above Physical Exam Physical Exam: General- oriented x 3, not in distress, speaks in sentences with no effort or accessory muscle use Eyes- anicteric Neck- no JVD Lungs- clear breath sounds bilaterally, no rales/wheezes Heart- normal rate, regular rhythm; no murmurs Abdomen- normal bowel sounds, nondistended, soft, nontender Extremities- mild lower extremity edema, no calf tenderness Neuro- alert, oriented x 3; no gross focal neurologic deficits Skin- warm & dry Results & Data Results & Data ([facility]) Vital Signs (Past 12 Hours) Vital Signs Temp Pulse Pulse Resp BP Pulse Ox 02/14/22 15:03 36.4 C L 80 14 151/63 H 94 02/14/22 11:56 36.5 C 75 18 135/50 L 93 02/14/22 10:43 67 02/14/22 07:03 36.6 C 73 14 131/82 99 all noted and reviewed including below
[2022-02-14] MEDS: SODIUM CHLORIDE 0.9% 500 ML IV SCH (18:30)
[2022-02-14] MEDS: VENLAFAXINE HCL XR 75 MG CAPXR PO SCH (21:26)
[2022-02-15] MEDS: oxyCODONE HCL IR 5 MG TAB (IMMEDIATE RELEASE) PO PRN ×6 (00:19→22:04)
[2022-02-15] MEDS: CHECK fentaNYL PATCH PLACEMENT SCH ×4 (00:19→23:59)
[2022-02-15] MEDS: LEVOTHYROXINE SODIUM 125 MCG TABLET PO SCH (05:37)
[2022-02-15] MEDS: ONDANSETRON INJ 2 MG/ML 2 ML VIAL IV PRN (05:38)
[2022-02-15 06:23] LABS: BUN Creatinine Ratio 20.9 (10-20); Calcium 8.7 mg/dl (8.5-10.1); Creatinine Clr Calc Pharmacy 57.2 ml/min; Est GFR (African American) 70.5 ml/min; Est GFR (Non-African American) 60.9 ml/min; Potassium 4.3 mmol/L (3.5-5.1)
[2022-02-15 06:46] LABS: Hematocrit (blood only) 26.6 % (37-47); Hemoglobin 8.8 g/dL (12.0-16.0); Mean Corpuscular Hemoglobin 28.7 pg (25-34); Mean Corpuscular Hgb Conc 33.1 g/dL (32-36); Mean Corpuscular Volume 86.6 fL (80-100); Mean Platelet Volume 10.6 fL (7.4-10.4); Platelet Count 16 K/uL (130-400); RDW Coefficient of Variation 14.8 % (11.5-14.5); RDW Standard Deviation 47.2 fL (36.4-46.3); Red Blood Count 3.07 M/uL (4.2-5.4); White Blood Count 2.01 K/uL (4.8-10.8)
[2022-02-15 06:48] LABS: Lymphocytes % (auto) 29.9 %; Monocytes # (auto) 0.06 K/uL (0.11-0.59); Neutrophils # (auto) 1.35 K/uL (1.4-6.5); Neutrophils % (auto) 67.1 %; RBC Morphology Unremarkable
[2022-02-15] MEDS: DOCUSATE SODIUM 100 MG CAP PO SCH ×2 (07:16→21:42)
[2022-02-15] MEDS: DOCUSATE SODIUM/SENNA 50/8.6MG TAB PO SCH (07:17)
[2022-02-15] MEDS: METOPROLOL SUCC 25MG EXT REL TAB PO SCH (07:17)
[2022-02-15] MEDS: AMIODARONE 200 MG TAB PO SCH (07:17)
[2022-02-15] MEDS: ROSUVASTATIN CALCIUM 20 MG TAB PO SCH (07:17)
[2022-02-15] MEDS: ACYCLOVIR 400 MG TAB PO SCH ×2 (07:17→21:43)
[2022-02-15] MEDS: FLUTICASONE PROPIONATE NA SPR 16 GM BTL SCH (07:18)
[2022-02-15] MEDS: SPIRONOLACTONE 12.5 MG TAB PO SCH (07:18)
[2022-02-15] MEDS: PANTOprazole 40 MG TAB PO SCH (07:18)
[2022-02-15] MEDS: GABAPENTIN 300 MG CAP PO SCH ×4 (07:18→21:42)
[2022-02-15] MEDS: allopurinoL 300 MG TAB PO SCH (07:18)
[2022-02-15] MEDS: VENETOCLAX PO SCH (07:19)
--- NOTE | 2022-02-15 08:53 | Pain Management Progress Note ---
Date of Service February 15, 2022 Assessment & Plan (1) Cellulitis of left leg: Plan: * Continue Fentanyl Patch 12mcg/hr for long acting pain relief. * Oxycodone 5-10mg was switched from x 6 hours to x 4 hours PRN pain. * Dilaudid 0.5mg x 4 hours if the above medications are not providing adequate pain relief. * Will sign off on the patient. Please contact with any questions or concerns. Admission and Anticipated Discharge Date Admission Date: February 11, 2022 Albert Brito is a 76 year old female that is reporting moderate improvement in bone and leg pain since yesterday. Fentanyl patch 12mcg/hr was added and she used Oxycodone 10mg twice yesterday. She has not required IV dilaudid. Patient does find that the Oxycodone is providing relief for about 4 hours at a time and was ordered at every 6. She denies nay side effects. Patient denies any side effects to the medications. No constipation, drowsiness, confusion. Physical Exam Physical Exam: GENERAL: This is a 76 year old female that appears in no acute distress. She is resting comfortably in the hospital bed eating breakfast. HEAD/FACE: Normocephalic and atraumatic. EYES: No drainage or conjunctival injection. ENT: Nose without bleeding or discharge. Oral mucosa moist. NECK: Full ROM without apparent pain. No swelling or masses noted. RESPIRATORY: Patient with unlabored breathing. No signs of respiratory distress. CHEST/AXILLA: Chest movement symmetrical. No deformities noted. ABDOMEN/GI: No distension BACK: Moves without difficulty SKIN: + LLE erythema. MS/EXTREMITY: Moving extremities appropriately. NEURO: Alert and appears oriented. Speech is fluent. Cranial Nerves are grossly intact. PSYCH: Alert, pleasant, affect is calm
[2022-02-15] MEDS: cefTRIAXone SODIUM 2,000 MG in DEXTROSE 5% 50 ML IV SCH (11:08)
[2022-02-15] MEDS: CRESEMBA PO SCH (16:42)
--- NOTE | 2022-02-15 19:13 | Hospitalist Progress Note ---
Date of Service February 15, 2022 Assessment & Plan (1) Cellulitis of left leg: (2) Symptomatic anemia: (3) AML (acute myeloblastic leukemia): (4) HTN (hypertension): (5) Hypothyroidism: (6) Pancytopenia due to antineoplastic chemotherapy: (7) Follicular lymphoma: (8) Immunosuppressed status: Plan: per Dr. Wilkinson's notes with addendum: Patient is a 76 yr female with H/O AML, recurrent follicular lymphoma, history of mucoepidermoid carcinoma, pancytopenia, PAF, HTN, HLD, CKD stage III, thoracic aortic aneurysm, history of DVT status post IVCF, depression with anxiety who presents to ED secondary to bone pain x2 to 3 weeks. Pt does not meet SIRS/SEPSIS criteria on admission. Symptomatic anemia Pancytopenia in setting of AML, hx of Recurrent Follicular Lymphoma, recent bone marrow bx showed 18% myeloblasts Thrombocytopenia S/P 2 units PRBCs Monitor CBC Follows with [facility] oncology as outpatient Plan to transfuse platelets if less than 10K or any acute bleeding Currently on venetoclax daily, last chemo 01/29 Continue with acyclovir and Cresemba Hold cefpodoxime while on antibiotics Continue current medications 02/15 1 unit plt given plt improved to 23 from 8 Hg slighlty lower peripheral smear: (+) blasts DIC work up: LDH negative Fibrinogen 566, Fibrin products <10, D dimer 1640 no signs of infection repeat CBC tomorrow Lasix 40mg IV today 02/15 Plt down to 16 again today no bleeding monitor CBC no signs of DIC discussed with Dr. Saucedo Left lower extremity cellulitis Blood cultures : negative Negative MRSA Continue IV Rocephin Improving 1 dose IV lasix tomorrow PAF Continue amiodarone and metoprolol Currently normal sinus rhythm Off anticoagulants in setting of pancytopenia Bilateral lower extremity edema Grade 2 Diastolic CHF Received 40 mg IV Lasix continue metoprolol and Aldactone Last echo was suggestive of grade 2 diastolic dysfunction Lasix 40mg IV tomorrow monitor Elevated High Sensitivity troponin Likely demand ischemia in setting of anemia, infection CKD III Cr at baseline monitor avoid nephrotoxic agents DVT Px: SCDs for now Code Status FULL CODE PCP: Joanne plan of care discussed with patient in detail and at length all questions answered she is understanding, agreeable, comfortable with the plan of care Admission and Anticipated Discharge Date Admission Date: February 11, 2022 Subjective ff up for pain, in the setting of AML, etc seen resting in bed, comfortable sitting up states her pain level increased again today Oxycodone providing relief no chest pain, dyspnea, palpitations, dizziness no fever/chills appetite good no other symptoms Review of Systems Review of Systems: all noted and negative except for above Physical Exam Physical Exam: General- oriented x 3, not in distress, speaks in sentences with no effort or accessory muscle use Eyes- anicteric Neck- no JVD Lungs- clear BS bilaterally, no rales/wheezes Heart- normal rate, regular rhythm; no murmurs Abdomen- normal bowel sounds, nondistended, soft, nontender Extremities- mild lower leg edema, no calf tenderness LLE: erythema continues to recede Neuro- alert, oriented x 3; no gross focal neurologic deficits Skin- warm & dry Results & Data Results & [facility] ([facility]) Vital Signs (Past 12 Hours) Vital Signs Temp Pulse Pulse Resp BP Pulse Ox 02/15/22 18:24 71 02/15/22 16:00 36.6 C 80 17 118/52 L 96 02/15/22 10:42 36.6 C 73 16 110/54 L 98 02/15/22 08:00 70 02/15/22 07:53 36.6 C 74 17 126/52 L 97 all noted and reviewed including below
[2022-02-15] MEDS: ACETAMINOPHEN 325 MG TAB PO PRN (19:45)
[2022-02-15] MEDS: VENLAFAXINE HCL XR 75 MG CAPXR PO SCH (21:43)
[2022-02-15] MEDS: SODIUM CHLORIDE 0.9% 500 ML IV SCH (21:45)
[2022-02-16] MEDS: oxyCODONE HCL IR 5 MG TAB (IMMEDIATE RELEASE) PO PRN ×4 (02:14→21:09)
[2022-02-16] MEDS: LEVOTHYROXINE SODIUM 125 MCG TABLET PO SCH (06:09)
[2022-02-16] MEDS: ACETAMINOPHEN 325 MG TAB PO PRN (06:09)
[2022-02-16] MEDS ORDERED: FUROSEMIDE 40 MG/4 ML VIAL IV ONE (08:00)
[2022-02-16] MEDS: CHECK fentaNYL PATCH PLACEMENT SCH ×4 (08:14→23:38)
[2022-02-16] MEDS: ROSUVASTATIN CALCIUM 20 MG TAB PO SCH (08:14)
[2022-02-16] MEDS: PANTOprazole 40 MG TAB PO SCH (08:15)
[2022-02-16] MEDS: SPIRONOLACTONE 12.5 MG TAB PO SCH (08:15)
[2022-02-16] MEDS: GABAPENTIN 300 MG CAP PO SCH ×4 (08:15→21:06)
[2022-02-16] MEDS: METOPROLOL SUCC 25MG EXT REL TAB PO SCH (08:15)
[2022-02-16] MEDS: AMIODARONE 200 MG TAB PO SCH (08:15)
[2022-02-16] MEDS: DOCUSATE SODIUM/SENNA 50/8.6MG TAB PO SCH (08:16)
[2022-02-16] MEDS: FLUTICASONE PROPIONATE NA SPR 16 GM BTL SCH (08:16)
[2022-02-16] MEDS: ACYCLOVIR 400 MG TAB PO SCH ×2 (08:16→21:06)
[2022-02-16] MEDS: DOCUSATE SODIUM 100 MG CAP PO SCH ×2 (08:16→21:07)
[2022-02-16] MEDS: VENETOCLAX PO SCH (08:17)
[2022-02-16] MEDS: allopurinoL 300 MG TAB PO SCH (08:18)
[2022-02-16 10:01] LABS: Hematocrit (blood only) 26.5 % (37-47); Hemoglobin 8.7 g/dL (12.0-16.0); Immature Granulocytes # (auto) 0.01 K/uL (0.00-0.02); Immature Granulocytes % (auto) 0.4 %; Lymphocytes # (auto) 0.75 K/uL (1.2-3.4); Lymphocytes % (auto) 33.2 %; Mean Corpuscular Hemoglobin 28.4 pg (25-34); Mean Corpuscular Hgb Conc 32.8 g/dL (32-36); Mean Corpuscular Volume 86.6 fL (80-100); Mean Platelet Volume 10.5 fL (7.4-10.4); Monocytes % (auto) 4.4 %; Platelet Estimate SIGNIFIC DECREASED (Normal); RDW Standard Deviation 47.7 fL (36.4-46.3); Red Blood Count 3.06 M/uL (4.2-5.4); White Blood Count 2.26 K/uL (4.8-10.8)
[2022-02-16 10:06] LABS: BUN Creatinine Ratio 21.7 (10-20); Calcium 8.9 mg/dl (8.5-10.1); Creatinine Clr Calc Pharmacy 62.9 ml/min; Est GFR (African American) 78.8 ml/min; Potassium 4.7 mmol/L (3.5-5.1)
[2022-02-16 11:44] LABS: Platelet Count 20 K/uL (130-400)
[2022-02-16] MEDS: cefTRIAXone SODIUM 2,000 MG in DEXTROSE 5% 50 ML IV SCH (12:45)
[2022-02-16] MEDS: HYDROmorphone INJ 0.5 MG/0.5 ML SYR IV PRN (15:41)
--- NOTE | 2022-02-16 17:20 | Hospitalist Progress Note ---
Date of Service February 16, 2022 Assessment & Plan (1) Cellulitis of left leg: (2) Symptomatic anemia: (3) AML (acute myeloblastic leukemia): (4) HTN (hypertension): (5) Hypothyroidism: (6) Pancytopenia due to antineoplastic chemotherapy: (7) Follicular lymphoma: (8) Immunosuppressed status: Plan: per Dr. Wilkinson's notes with addendum: Patient is a 76 yr female with H/O AML, recurrent follicular lymphoma, history of mucoepidermoid carcinoma, pancytopenia, PAF, HTN, HLD, CKD stage III, thoracic aortic aneurysm, history of DVT status post IVCF, depression with anxiety who presents to ED secondary to bone pain x2 to 3 weeks. Pt does not meet SIRS/SEPSIS criteria on admission. Symptomatic anemia Pancytopenia in setting of AML, hx of Recurrent Follicular Lymphoma, recent bone marrow bx showed 18% myeloblasts Thrombocytopenia S/P 2 units PRBCs Monitor CBC Follows with [facility] oncology as outpatient Plan to transfuse platelets if less than 10K or any acute bleeding Currently on venetoclax daily, last chemo 01/29 Continue with acyclovir and Cresemba Hold cefpodoxime while on antibiotics Continue current medications 02/15 1 unit plt given plt improved to 23 from 8 Hg slighlty lower peripheral smear: (+) blasts DIC work up: LDH negative Fibrinogen 566, Fibrin products <10, D dimer 1640 no signs of infection repeat CBC tomorrow Lasix 40mg IV today 02/16 Plt stable at 20 CBC stable overall Left lower extremity cellulitis Blood cultures : negative Negative MRSA Continue IV Rocephin Improving Lasix 20mg IV tomorrow AM PAF Continue amiodarone and metoprolol Currently normal sinus rhythm Off anticoagulants in setting of pancytopenia Bilateral lower extremity edema Grade 2 Diastolic CHF Received 40 mg IV Lasix continue metoprolol and Aldactone Last echo was suggestive of grade 2 diastolic dysfunction Lasix 20mg IV tomorrow monitor Elevated High Sensitivity troponin Likely demand ischemia in setting of anemia, infection CKD III Cr at baseline monitor avoid nephrotoxic agents DVT Px: SCDs for now Code Status FULL CODE PCP: Joanne plan of care discussed with patient in detail and at length all questions answered she is understanding, agreeable, comfortable with the plan of care Admission and Anticipated Discharge Date Admission Date: February 11, 2022 Subjective ff up for AML, etc seen resting in bed, not in distress reports pain increased today, 9 at worse no chest pain, dyspnea, palpitations, dizziness no bleeding no other symptoms Review of Systems Review of Systems: all noted and negative except for above Physical Exam Physical Exam: General- oriented x 3, not in distress, speaks in sentences with no effort or accessory muscle use Eyes- anicteric Neck- no JVD Lungs- clear BS bilaterally, no rales/wheezes Heart- normal rate, regular rhythm; no murmurs Abdomen- normal bowel sounds, nondistended, soft, nontender Extremities- mild pretibial edema, no calf tenderness Neuro- alert, oriented x 3; no gross focal neurologic deficits Skin- warm & dry Results & Data Results & Data ([facility]) Vital Signs (Past 12 Hours) Vital Signs Temp Pulse Pulse Resp BP Pulse Ox 02/16/22 14:59 37.0 C 90 18 147/72 H 93 02/16/22 11:36 36.8 C 75 18 114/57 L 97 02/16/22 08:00 73 02/16/22 07:49 36.7 C 75 18 104/59 L 91 all noted and reviewed including below
[2022-02-16] MEDS: fentaNYL 25 MCG/HR TDSY TD SCH (17:21)
[2022-02-16] MEDS: POLYETHYLENE (MIRALAX) 17 GM PACK PO SCH (17:24)
[2022-02-16] MEDS: CRESEMBA PO SCH (17:25)
[2022-02-16] MEDS: VENLAFAXINE HCL XR 75 MG CAPXR PO SCH (21:07)
[2022-02-16] MEDS: SODIUM CHLORIDE 0.9% 500 ML IV SCH (23:37)
[2022-02-17] MEDS: oxyCODONE HCL IR 5 MG TAB (IMMEDIATE RELEASE) PO PRN ×5 (01:19→20:18)
[2022-02-17] MEDS: LEVOTHYROXINE SODIUM 125 MCG TABLET PO SCH (05:19)
[2022-02-17 06:18] LABS: BUN Creatinine Ratio 19.8 (10-20); Calcium 8.9 mg/dl (8.5-10.1); Creatinine Clr Calc Pharmacy 60.8 ml/min; Est GFR (African American) 75.5 ml/min; Est GFR (Non-African American) 65.2 ml/min; Potassium 4.6 mmol/L (3.5-5.1)
[2022-02-17 06:26] LABS: Hematocrit (blood only) 24.6 % (37-47); Hemoglobin 8.3 g/dL (12.0-16.0); Immature Granulocytes # (auto) 0.02 K/uL (0.00-0.02); Immature Granulocytes % (auto) 0.9 %; Lymphocytes # (auto) 0.64 K/uL (1.2-3.4); Lymphocytes % (auto) 27.6 %; Mean Corpuscular Hemoglobin 28.4 pg (25-34); Mean Corpuscular Hgb Conc 33.7 g/dL (32-36); Mean Corpuscular Volume 84.2 fL (80-100); Mean Platelet Volume 9.3 fL (7.4-10.4); Monocytes # (auto) 0.09 K/uL (0.11-0.59); Monocytes % (auto) 3.9 %; Neutrophils # (auto) 1.57 K/uL (1.4-6.5); Neutrophils % (auto) 67.6 %; Platelet Count 10 K/uL (130-400); Platelet Estimate SIGNIFIC DECREASED (Normal); RDW Coefficient of Variation 14.8 % (11.5-14.5); RDW Standard Deviation 46.4 fL (36.4-46.3); Red Blood Count 2.92 M/uL (4.2-5.4); White Blood Count 2.32 K/uL (4.8-10.8)
[2022-02-17] MEDS: GABAPENTIN 300 MG CAP PO SCH ×4 (08:15→20:22)
[2022-02-17] MEDS: CHECK fentaNYL PATCH PLACEMENT SCH ×2 (08:15→16:28)
[2022-02-17] MEDS: ACYCLOVIR 400 MG TAB PO SCH ×2 (08:15→20:22)
[2022-02-17] MEDS: PANTOprazole 40 MG TAB PO SCH (08:15)
[2022-02-17] MEDS: DOCUSATE SODIUM 100 MG CAP PO SCH ×2 (08:15→20:22)
[2022-02-17] MEDS: METOPROLOL SUCC 25MG EXT REL TAB PO SCH (08:16)
[2022-02-17] MEDS: ROSUVASTATIN CALCIUM 20 MG TAB PO SCH (08:16)
[2022-02-17] MEDS: SPIRONOLACTONE 12.5 MG TAB PO SCH (08:16)
[2022-02-17] MEDS: allopurinoL 300 MG TAB PO SCH (08:16)
[2022-02-17] MEDS: FUROSEMIDE INJ 20 MG/2 ML VIAL IV SCH (08:16)
[2022-02-17] MEDS: AMIODARONE 200 MG TAB PO SCH (08:16)
[2022-02-17] MEDS: VENETOCLAX PO SCH (08:17)
[2022-02-17] MEDS: FLUTICASONE PROPIONATE NA SPR 16 GM BTL SCH (08:17)
[2022-02-17] MEDS: POLYETHYLENE (MIRALAX) 17 GM PACK PO SCH (08:18)
--- NOTE | 2022-02-17 10:29 | Hospitalist Progress Note ---
Date of Service February 17, 2022 Assessment & Plan (1) Cellulitis of left leg: (2) Symptomatic anemia: (3) AML (acute myeloblastic leukemia): (4) HTN (hypertension): (5) Hypothyroidism: (6) Pancytopenia due to antineoplastic chemotherapy: (7) Follicular lymphoma: (8) Immunosuppressed status: Plan: per Dr. Wilkinson's notes with addendum: Patient is a 76 yr female with H/O AML, recurrent follicular lymphoma, history of mucoepidermoid carcinoma, pancytopenia, PAF, HTN, HLD, CKD stage III, thoracic aortic aneurysm, history of DVT status post IVCF, depression with anxiety who presents to ED secondary to bone pain x2 to 3 weeks. Pt does not meet SIRS/SEPSIS criteria on admission. Symptomatic anemia Pancytopenia in setting of AML, hx of Recurrent Follicular Lymphoma, recent bone marrow bx showed 18% myeloblasts Thrombocytopenia S/P 2 units PRBCs Monitor CBC Follows with [facility] oncology as outpatient Plan to transfuse platelets if less than 10K or any acute bleeding Currently on venetoclax daily, last chemo 01/29 Continue with acyclovir and Cresemba Hold cefpodoxime while on antibiotics Continue current medications 02/15 1 unit plt given plt improved to 23 from 8 Hg slighlty lower peripheral smear: (+) blasts DIC work up: LDH negative Fibrinogen 566, Fibrin products <10, D dimer 1640 no signs of infection repeat CBC tomorrow Lasix 40mg IV today 02/17 Plt at 10 k again 1 unit Plt ordered WBC and Hg stable so far Left lower extremity cellulitis Blood cultures : negative Negative MRSA Continue IV Rocephin Improving Lasix 20mg IV Bilateral lower extremity edema Grade 2 Diastolic CHF Received 40 mg IV Lasix continue metoprolol and Aldactone Last echo was suggestive of grade 2 diastolic dysfunction Lasix 20mg IV monitor PAF Continue amiodarone and metoprolol Currently normal sinus rhythm Off anticoagulants in setting of pancytopenia Elevated High Sensitivity troponin Likely demand ischemia in setting of anemia, infection CKD III Cr at baseline monitor avoid nephrotoxic agents DVT Px: SCDs for now due to thrombocytopenia Code Status FULL CODE PCP: Joanne plan of care discussed with patient in detail and at length all questions answered she is understanding, agreeable, comfortable with the plan of care Admission and Anticipated Discharge Date Admission Date: February 11, 2022 Subjective ff up for pain, AML, leg cellulitis, etc seen resting in bed, comfortable states increased Fentanyl patch is helping, pain is less this morning no chest pain, dyspnea, palpitations, dizziness no bleeding no other new symptoms Review of Systems Review of Systems: all noted and negative except for above Physical Exam Physical Exam: General- oriented x 2, not in distress, speaks in sentences with no effort or accessory muscle use Eyes- anicteric Neck- no JVD Lungs- clear BS BL Heart- normal rate, regular rhythm; no murmurs Abdomen- normal bowel sounds, nondistended, soft, nontender Extremities-mild lower leg edema, no calf tenderness LLE: erythema further improving Neuro- alert, oriented x 3; no gross focal neurologic deficits Skin- warm & dry Results & Data Results & Data ([facility]) Vital Signs (Past 12 Hours) Vital Signs Temp Pulse Pulse Resp BP BP Pulse Ox 02/17/22 09:38 37.1 C 67 16 140/72 97 02/17/22 09:17 37 C 67 16 127/72 97 02/17/22 08:22 36.7 C 86 18 124/54 L 91 02/17/22 04:07 37.2 C 85 16 117/63 92 02/16/22 23:41 37.1 C 91 H 18 126/69 93 all noted and reviewed including below
[2022-02-17] MEDS: cefTRIAXone SODIUM 2,000 MG in DEXTROSE 5% 50 ML IV SCH (13:21)
[2022-02-17] MEDS: CRESEMBA PO SCH (16:28)
[2022-02-17] MEDS: VENLAFAXINE HCL XR 75 MG CAPXR PO SCH (20:22)
[2022-02-17] MEDS: SODIUM CHLORIDE 0.9% 500 ML IV SCH (20:33)
[2022-02-18] MEDS: oxyCODONE HCL IR 5 MG TAB (IMMEDIATE RELEASE) PO PRN ×6 (00:45→21:54)
[2022-02-18] MEDS: CHECK fentaNYL PATCH PLACEMENT SCH ×3 (00:47→17:26)
[2022-02-18] MEDS: LEVOTHYROXINE SODIUM 125 MCG TABLET PO SCH (05:47)
[2022-02-18 06:40] LABS: BUN Creatinine Ratio 23.8 (10-20); Calcium 8.7 mg/dl (8.5-10.1); Creatinine Clr Calc Pharmacy 62.5 ml/min; Est GFR (African American) 77.7 ml/min; Potassium 4.7 mmol/L (3.5-5.1)
[2022-02-18 06:45] LABS: Mean Corpuscular Hgb Conc 33.3 g/dL (32-36); Mean Platelet Volume 9.3 fL (7.4-10.4); Platelet Count 14 K/uL (130-400)
[2022-02-18 07:02] LABS: Hematocrit (blood only) 22.8 % (37-47); Hemoglobin 7.6 g/dL (12.0-16.0); Mean Corpuscular Volume 84.1 fL (80-100); RDW Coefficient of Variation 15.1 % (11.5-14.5); RDW Standard Deviation 47.1 fL (36.4-46.3); Red Blood Count 2.71 M/uL (4.2-5.4); White Blood Count 1.41 K/uL (4.8-10.8)
[2022-02-18 07:04] LABS: ALC (manual) 0.27 K/uL (1.2-3.4); ANC (manual) 1.12 K/uL (1.4-6.5); Blast # (manual) 0.01 K/uL (0-0); Blast Cells % (manual) 0.9 %; Lymphocytes # (manual) 0.27 K/uL (1.2-3.4); Lymphocytes % (manual) 19.1 %; Monocytes # (manual) 0.01 K/uL (0.11-0.59); Monocytes % (manual) 0.9 %; Neutrophils # (manual) 1.12 K/uL (1.4-6.5); Neutrophils % (manual) 79.1 %
[2022-02-18] MEDS: VENETOCLAX PO SCH (08:44)
[2022-02-18] MEDS: ACYCLOVIR 400 MG TAB PO SCH ×2 (08:45→21:54)
[2022-02-18] MEDS: FLUTICASONE PROPIONATE NA SPR 16 GM BTL SCH (08:45)
[2022-02-18] MEDS: AMIODARONE 200 MG TAB PO SCH (08:46)
[2022-02-18] MEDS: SPIRONOLACTONE 12.5 MG TAB PO SCH (08:46)
[2022-02-18] MEDS: DOCUSATE SODIUM 100 MG CAP PO SCH ×2 (08:46→21:55)
[2022-02-18] MEDS: METOPROLOL SUCC 25MG EXT REL TAB PO SCH (08:46)
[2022-02-18] MEDS: GABAPENTIN 300 MG CAP PO SCH ×4 (08:46→21:54)
[2022-02-18] MEDS: FUROSEMIDE INJ 20 MG/2 ML VIAL IV SCH (08:46)
[2022-02-18] MEDS: PANTOprazole 40 MG TAB PO SCH (08:46)
[2022-02-18] MEDS: ROSUVASTATIN CALCIUM 20 MG TAB PO SCH (08:46)
[2022-02-18] MEDS: allopurinoL 300 MG TAB PO SCH (08:46)
[2022-02-18] MEDS: POLYETHYLENE (MIRALAX) 17 GM PACK PO SCH (08:46)
[2022-02-18] MEDS: HYDROmorphone INJ 0.5 MG/0.5 ML SYR IV PRN (10:43)
[2022-02-18] MEDS ORDERED: ALUMINUM/MAGNESIUM SUSP 30 ML UDC PO STA (12:19)
[2022-02-18] MEDS ORDERED: ALUMINUM/MAGNESIUM SUSP 30 ML UDC PO PRN (12:19)
[2022-02-18] MEDS: cefTRIAXone SODIUM 2,000 MG in DEXTROSE 5% 50 ML IV SCH (12:39)
[2022-02-18] MEDS ORDERED: SODIUM CHLORIDE 0.9% 250 ML IV PRN ×2 (13:02→14:11)
--- NOTE | 2022-02-18 17:22 | Hospitalist Progress Note ---
Date of Service February 18, 2022 Assessment & Plan (1) Cellulitis of left leg: (2) Symptomatic anemia: (3) AML (acute myeloblastic leukemia): (4) HTN (hypertension): (5) Hypothyroidism: (6) Pancytopenia due to antineoplastic chemotherapy: (7) Follicular lymphoma: (8) Immunosuppressed status: Plan: per Dr. Wilkinson's notes with addendum: Patient is a 76 yr female with H/O AML, recurrent follicular lymphoma, history of mucoepidermoid carcinoma, pancytopenia, PAF, HTN, HLD, CKD stage III, thoracic aortic aneurysm, history of DVT status post IVCF, depression with anxiety who presents to ED secondary to bone pain x2 to 3 weeks. Pt does not meet SIRS/SEPSIS criteria on admission. Symptomatic anemia Pancytopenia in setting of AML, hx of Recurrent Follicular Lymphoma, recent bone marrow bx showed 18% myeloblasts Thrombocytopenia S/P 2 units PRBCs Monitor CBC Follows with [facility] oncology as outpatient Plan to transfuse platelets if less than 10K or any acute bleeding Currently on venetoclax daily, last chemo 01/29 Continue with acyclovir and Cresemba Hold cefpodoxime while on antibiotics Continue current medications 02/15 1 unit plt given plt improved to 23 from 8 Hg slighlty lower peripheral smear: (+) blasts DIC work up: LDH negative Fibrinogen 566, Fibrin products <10, D dimer 1640 no signs of infection repeat CBC tomorrow Lasix 40mg IV today 02/18 Plt 14 Hg 7.6, 1 unit ordered of pRBC WBC trending down Discussed with Dr. Saucedo Continue supportive care,. Transfusions Overall picture suggesting progression of AML Continue pain control Left lower extremity cellulitis Blood cultures : negative Negative MRSA Continue IV Rocephin Improving Lasix 20mg IV Bilateral lower extremity edema Grade 2 Diastolic CHF Received 40 mg IV Lasix continue metoprolol and Aldactone Last echo was suggestive of grade 2 diastolic dysfunction Lasix 20mg IV monitor PAF Continue amiodarone and metoprolol Currently normal sinus rhythm Off anticoagulants in setting of pancytopenia Elevated High Sensitivity troponin Likely demand ischemia in setting of anemia, infection CKD III Cr at baseline monitor avoid nephrotoxic agents DVT Px: SCDs for now due to thrombocytopenia Code Status FULL CODE PCP: Keiter plan of care discussed with patient in detail and at length all questions answered she is understanding, agreeable, comfortable with the plan of care Admission and Anticipated Discharge Date Admission Date: February 11, 2022 Subjective Follow-up for AML, etc. Seen resting in bed, not in distress Appears weak, somewhat drowsy Reporting chest pain earlier, given Maalox and oxycodone, chest pain improving EKG no signs of acute ischemia Having significant pain today as per RN Has mild shortness of breath Denies any other symptoms Review of Systems Review of Systems: all noted and negative except for above Physical Exam Physical Exam: General- oriented x 3, not in distress, speaks in sentences with no effort or accessory muscle use Eyes- anicteric Neck- no JVD Lungs- clear breath sounds bilaterally Heart- normal rate, regular rhythm; no murmurs Abdomen- normal bowel sounds, nondistended, soft, no tenderness Extremities- no pretibial edema, no calf tenderness Neuro- alert, oriented x 3; no gross focal neurologic deficits Skin- warm & dry Results & Data Results & Data ([facility]) Vital Signs (Past 12 Hours) Vital Signs Temp Pulse Pulse Resp BP BP Pulse Ox 02/18/22 16:03 37 C 75 16 128/62 97 02/18/22 15:47 37 C 72 16 108/54 L 97 02/18/22 12:10 75 16 110/57 L 97 02/18/22 11:45 36.4 C L 74 16 108/54 L 100 02/18/22 08:00 73 02/18/22 07:41 36.6 C 77 18 118/56 L 97 all noted and reviewed including below
[2022-02-18] MEDS: CRESEMBA PO SCH (17:26)
[2022-02-18] MEDS: ACETAMINOPHEN 325 MG TAB PO PRN (21:55)
[2022-02-18] MEDS: VENLAFAXINE HCL XR 75 MG CAPXR PO SCH (21:55)
[2022-02-19 00:43] LABS: Hematocrit (blood only) 25.2 % (37-47); Hemoglobin 8.6 g/dL (12.0-16.0)
[2022-02-19] MEDS ORDERED: HYDROmorphone INJ 0.5 MG/0.5 ML SYR IV STA (01:44)
[2022-02-19] MEDS: SODIUM CHLORIDE 0.9% 500 ML IV SCH (03:56)
[2022-02-19] MEDS: CHECK fentaNYL PATCH PLACEMENT SCH ×3 (03:57→18:07)
[2022-02-19] MEDS: LEVOTHYROXINE SODIUM 125 MCG TABLET PO SCH (05:55)
[2022-02-19 07:13] LABS: BUN Creatinine Ratio 25.9 (10-20); Calcium 8.9 mg/dl (8.5-10.1); Creatinine Clr Calc Pharmacy 61.8 ml/min; Est GFR (African American) 76.6 ml/min; Est GFR (Non-African American) 66.1 ml/min; Potassium 4.8 mmol/L (3.5-5.1)
[2022-02-19 08:22] LABS: Hematocrit (blood only) 26.5 % (37-47); Hemoglobin 9.1 g/dL (12.0-16.0); Mean Corpuscular Hemoglobin 28.7 pg (25-34); Mean Corpuscular Volume 83.6 fL (80-100); Mean Platelet Volume 8.2 fL (7.4-10.4); Platelet Count 7 K/uL (130-400); RDW Coefficient of Variation 14.9 % (11.5-14.5); RDW Standard Deviation 46.3 fL (36.4-46.3); Red Blood Count 3.17 M/uL (4.2-5.4); White Blood Count 2.08 K/uL (4.8-10.8)
[2022-02-19 08:33] LABS: Mean Corpuscular Hgb Conc 34.3 g/dL (32-36)
[2022-02-19 08:34] LABS: ALC (manual) 0.31 K/uL (1.2-3.4); ANC (manual) 1.66 K/uL (1.4-6.5); Lymphocytes # (manual) 0.31 K/uL (1.2-3.4); Lymphocytes % (manual) 14.8 %; Monocytes # (manual) 0.05 K/uL (0.11-0.59); Monocytes % (manual) 2.6 %; Neutrophils # (manual) 1.66 K/uL (1.4-6.5); Platelet Estimate SIGNIFIC DECREASED (Normal); Spherocytes 1+
[2022-02-19 08:36] LABS: Blast Cells % (manual) 2.6 %
[2022-02-19 08:37] LABS: Blast # (manual) 0.05 K/uL (0-0)
[2022-02-19] MEDS: VENETOCLAX PO SCH (08:39)
[2022-02-19] MEDS: FLUTICASONE PROPIONATE NA SPR 16 GM BTL SCH (08:39)
[2022-02-19] MEDS: oxyCODONE HCL IR 5 MG TAB (IMMEDIATE RELEASE) PO PRN ×4 (08:39→22:13)
[2022-02-19] MEDS: ACYCLOVIR 400 MG TAB PO SCH ×2 (08:40→21:12)
[2022-02-19] MEDS: SPIRONOLACTONE 12.5 MG TAB PO SCH (08:40)
[2022-02-19] MEDS: GABAPENTIN 300 MG CAP PO SCH ×4 (08:40→21:12)
[2022-02-19] MEDS: METOPROLOL SUCC 25MG EXT REL TAB PO SCH (08:40)
[2022-02-19] MEDS: AMIODARONE 200 MG TAB PO SCH (08:40)
[2022-02-19] MEDS: FUROSEMIDE INJ 20 MG/2 ML VIAL IV SCH (08:41)
[2022-02-19] MEDS: POLYETHYLENE (MIRALAX) 17 GM PACK PO SCH (08:41)
[2022-02-19] MEDS: ROSUVASTATIN CALCIUM 20 MG TAB PO SCH (08:41)
[2022-02-19] MEDS: PANTOprazole 40 MG TAB PO SCH (08:41)
[2022-02-19] MEDS: DOCUSATE SODIUM 100 MG CAP PO SCH ×2 (08:41→21:12)
[2022-02-19] MEDS: allopurinoL 300 MG TAB PO SCH (08:41)
[2022-02-19] MEDS: fentaNYL 25 MCG/HR TDSY TD SCH (18:04)
[2022-02-19] MEDS: CRESEMBA PO SCH (18:07)
[2022-02-19] MEDS: VENLAFAXINE HCL XR 75 MG CAPXR PO SCH (21:12)
[2022-02-19] MEDS: ACETAMINOPHEN 325 MG TAB PO PRN (22:14)
[2022-02-20] MEDS: SODIUM CHLORIDE 0.9% 500 ML IV SCH ×2 (02:09→23:52)
[2022-02-20] MEDS: CHECK fentaNYL PATCH PLACEMENT SCH ×4 (02:29→23:59)
[2022-02-20] MEDS: LEVOTHYROXINE SODIUM 125 MCG TABLET PO SCH (05:58)
[2022-02-20 06:35] LABS: Hematocrit (blood only) 24.1 % (37-47); Hemoglobin 8.3 g/dL (12.0-16.0); Mean Corpuscular Hgb Conc 34.4 g/dL (32-36); Mean Corpuscular Volume 84.3 fL (80-100); Mean Platelet Volume 9.2 fL (7.4-10.4); Platelet Count 14 K/uL (130-400); RDW Coefficient of Variation 15.1 % (11.5-14.5); RDW Standard Deviation 46.6 fL (36.4-46.3); Red Blood Count 2.86 M/uL (4.2-5.4); White Blood Count 1.31 K/uL (4.8-10.8)
[2022-02-20 06:43] LABS: Platelet Estimate SIGNIFIC DECREASED (Normal); RBC Morphology Unremarkable
[2022-02-20] MEDS: ACETAMINOPHEN 325 MG TAB PO PRN ×2 (08:47→21:51)
[2022-02-20] MEDS: GABAPENTIN 300 MG CAP PO SCH ×4 (08:48→21:53)
[2022-02-20] MEDS: oxyCODONE HCL IR 5 MG TAB (IMMEDIATE RELEASE) PO PRN ×4 (08:48→22:24)
[2022-02-20] MEDS: allopurinoL 300 MG TAB PO SCH (08:48)
[2022-02-20] MEDS: DOCUSATE SODIUM 100 MG CAP PO SCH ×2 (08:49→21:53)
[2022-02-20] MEDS: VENETOCLAX PO SCH (08:49)
[2022-02-20] MEDS: ACYCLOVIR 400 MG TAB PO SCH ×2 (08:49→21:53)
[2022-02-20] MEDS: PANTOprazole 40 MG TAB PO SCH (08:49)
[2022-02-20] MEDS: METOPROLOL SUCC 25MG EXT REL TAB PO SCH (08:49)
[2022-02-20] MEDS: SPIRONOLACTONE 12.5 MG TAB PO SCH (08:49)
[2022-02-20] MEDS: ROSUVASTATIN CALCIUM 20 MG TAB PO SCH (08:49)
[2022-02-20 09:01] LABS: ANC (manual) 1.13 K/uL (1.4-6.5); Lymphocytes # (manual) 0.14 K/uL (1.2-3.4); Monocytes # (manual) 0.03 K/uL (0.11-0.59); Myelocytes # (manual) 0.01 K/uL (0-0); Neutrophils # (manual) 1.13 K/uL (1.4-6.5)
[2022-02-20 09:03] LABS: ALC (manual) 0.14 K/uL (1.2-3.4)
[2022-02-20] MEDS: AMIODARONE 200 MG TAB PO SCH (10:10)
[2022-02-20] MEDS: FUROSEMIDE INJ 20 MG/2 ML VIAL IV SCH (10:10)
[2022-02-20] MEDS: CEFDINIR 300 MG CAP PO SCH ×2 (10:10→21:52)
[2022-02-20] MEDS: FLUTICASONE PROPIONATE NA SPR 16 GM BTL SCH (10:10)
[2022-02-20] MEDS: POLYETHYLENE (MIRALAX) 17 GM PACK PO SCH (10:11)
[2022-02-20] MEDS ORDERED: bisacodyL 5 MG TABEC PO PRN (12:59)
[2022-02-20] MEDS: SENNA 8.6 MG TAB PO SCH (14:05)
--- NOTE | 2022-02-20 14:35 | Electrocardiogram Report ---
Test Reason : Blood Pressure : / mmHG Vent. Rate : 077 BPM Atrial Rate : 077 BPM P-R Int : 172 ms QRS Dur : 134 ms QT Int : 416 ms P-R-T Axes : 055 -55 014 degrees QTc Int : 470 ms Normal sinus rhythm Right bundle branch block Left anterior fascicular block Bifascicular block Abnormal ECG When compared with ECG of 11-FEB-2022 10:09, No significant change was found Confirmed by Duncan Trivedi ([id number]) on 02/20/2022 2:34:15 PM Referred By: REFERRED SELF Confirmed By:Duncan Trivedi
--- NOTE | 2022-02-20 15:39 | Hospitalist Progress Note ---
Date of Service February 20, 2022 Assessment & Plan (1) Cellulitis of left leg: (2) Symptomatic anemia: (3) AML (acute myeloblastic leukemia): (4) HTN (hypertension): (5) Hypothyroidism: (6) Pancytopenia due to antineoplastic chemotherapy: (7) Follicular lymphoma: (8) Immunosuppressed status: Plan: Patient is a 76 yr female with H/O AML, recurrent follicular lymphoma, history of mucoepidermoid carcinoma, pancytopenia, PAF, HTN, HLD, CKD stage III, thoracic aortic aneurysm, history of DVT status post IVCF, depression with anxiety who presents to ED secondary to bone pain x2 to 3 weeks. Pt does not meet SIRS/SEPSIS criteria on admission. Symptomatic anemia Pancytopenia in setting of AML, hx of Recurrent Follicular Lymphoma, recent bone marrow bx showed 18% myeloblasts Thrombocytopenia S/P 3 units PRBCs S/P 3 units Platelets Monitor CBC Peripheral smear: (+) blasts DIC work up: LDH negative Fibrinogen 566, Fibrin products <10, D dimer 1640 Follows with [facility] oncology as outpatient Plan to transfuse platelets if less than 10K or any acute bleeding Currently on venetoclax daily, last chemo 01/29 Continue with acyclovir and Cresemba Overall picture suggesting progression of AML Needs follow up with Oncology upon discharge Continue pain control Left lower extremity cellulitis Blood cultures : negative Negative MRSA Continue IV Rocephin>>Cefdinir Improved Bilateral lower extremity edema Grade 2 Diastolic CHF Received 40 mg IV Lasix continue metoprolol and Aldactone Last echo was suggestive of grade 2 diastolic dysfunction Continue Lasix 20mg IV monitor Hyponatremia Likely due to diuretics Monitor PAF Continue amiodarone and metoprolol Currently normal sinus rhythm Off anticoagulants in setting of pancytopenia Elevated High Sensitivity troponin Likely demand ischemia in setting of anemia, Infection CKD III Cr at baseline monitor Avoid nephrotoxic agents DVT Px: SCDs Re:Thrombocytopenia Code Status FULL CODE PCP: Joanne Admission and Anticipated Discharge Date Admission Date: February 11, 2022 Subjective Patient is seen and examined at bedside States having bone pain predominantly lower back, leg pain Also reports constipated Denies chest pain, dyspnea, dizziness, nausea, abdominal pain Offers no other complaints Review of Systems Review of Systems: All systems reviewed & are unremarkable except as noted in Subjective Physical Exam Physical Exam: Physical Exam: Vitals signs as noted above General Appearance:Moderately built and nourished, no apparent distress Head: normocephalic, Atraumatic Eyes: normal inspection, EOMI Neck: supple, Trachea midline Respiratory/Chest: Normal breath sounds, CTA, No accessory muscle use, R port Cardiovascular: S1, S2, +murmur Abdomen/GI:Soft, Non tender, Bowel sounds present Extremities/Musculoskeletal:normal inspection, +LE edema, left lower extremity erythema improved Neurologic/Psych:AAOX3, grossly no focal neurological deficits Skin: normal color, warm Results & Data Results & Data ([facility]) Vital Signs (Past 12 Hours) Vital Signs Temp Pulse Pulse Resp BP Pulse Ox 02/20/22 11:24 36.6 C 80 18 126/57 L 92 02/20/22 08:42 65 02/20/22 07:06 36.6 C 66 18 108/55 L 92 02/20/22 03:55 36.5 C 71 18 96/58 L 95 Laboratory Results Short CBC 02/20/22 Range/Units 05:26 WBC 1.31 L (4.8-10.8) K/uL Hgb 8.3 L (12.0-16.0) g/dL Hct 24.1 L (37-47) % Plt Count 14 L* D (130-400) K/uL
[2022-02-20] MEDS: CRESEMBA PO SCH (16:25)
[2022-02-20] MEDS: VENLAFAXINE HCL XR 75 MG CAPXR PO SCH (21:53)
[2022-02-21] MEDS: oxyCODONE HCL IR 5 MG TAB (IMMEDIATE RELEASE) PO PRN ×5 (03:17→20:54)
[2022-02-21] MEDS: LEVOTHYROXINE SODIUM 125 MCG TABLET PO SCH (06:23)
[2022-02-21 06:52] LABS: BUN Creatinine Ratio 26.1 (10-20); Calcium 8.7 mg/dl (8.5-10.1); Creatinine Clr Calc Pharmacy 56.7 ml/min; Est GFR (African American) 69.6 ml/min; Est GFR (Non-African American) 60.1 ml/min; Potassium 4.5 mmol/L (3.5-5.1)
[2022-02-21 07:10] LABS: Hemoglobin 8.3 g/dL (12.0-16.0); Lymphocytes # (auto) 0.46 K/uL (1.2-3.4); Lymphocytes % (auto) 34.6 %; Mean Corpuscular Hemoglobin 29.1 pg (25-34); Mean Corpuscular Hgb Conc 34.6 g/dL (32-36); Mean Corpuscular Volume 84.2 fL (80-100); Mean Platelet Volume 8.7 fL (7.4-10.4); Monocytes # (auto) 0.02 K/uL (0.11-0.59); Monocytes % (auto) 1.5 %; Neutrophils # (auto) 0.85 K/uL (1.4-6.5); Neutrophils % (auto) 63.9 %; Platelet Count 8 K/uL (130-400); RDW Coefficient of Variation 15.1 % (11.5-14.5); RDW Standard Deviation 47.2 fL (36.4-46.3); Red Blood Count 2.85 M/uL (4.2-5.4); White Blood Count 1.33 K/uL (4.8-10.8)
[2022-02-21] MEDS: ACETAMINOPHEN 325 MG TAB PO PRN ×2 (08:27→22:57)
[2022-02-21] MEDS: CHECK fentaNYL PATCH PLACEMENT SCH ×3 (08:30→23:04)
[2022-02-21] MEDS: GABAPENTIN 300 MG CAP PO SCH ×4 (08:30→21:00)
[2022-02-21] MEDS: allopurinoL 300 MG TAB PO SCH (08:31)
[2022-02-21] MEDS: METOPROLOL SUCC 25MG EXT REL TAB PO SCH (08:33)
[2022-02-21] MEDS: CEFDINIR 300 MG CAP PO SCH ×2 (08:33→21:00)
[2022-02-21] MEDS: PANTOprazole 40 MG TAB PO SCH (08:34)
[2022-02-21] MEDS: SENNA 8.6 MG TAB PO SCH (08:34)
[2022-02-21] MEDS: SPIRONOLACTONE 12.5 MG TAB PO SCH (08:34)
[2022-02-21] MEDS: ACYCLOVIR 400 MG TAB PO SCH ×2 (08:34→21:00)
[2022-02-21] MEDS: ROSUVASTATIN CALCIUM 20 MG TAB PO SCH (08:34)
[2022-02-21] MEDS: AMIODARONE 200 MG TAB PO SCH (08:34)
[2022-02-21] MEDS: VENETOCLAX PO SCH (08:35)
[2022-02-21] MEDS: DOCUSATE SODIUM 100 MG CAP PO SCH ×2 (08:35→21:01)
[2022-02-21] MEDS: FLUTICASONE PROPIONATE NA SPR 16 GM BTL SCH (08:35)
[2022-02-21] MEDS: POLYETHYLENE (MIRALAX) 17 GM PACK PO SCH (08:36)
--- NOTE | 2022-02-21 11:18 | XRay Report ---
KUB HISTORY: constipation COMPARISON: Abdomen and pelvis CT 02/11/2022. KUB 06/26/2012. FINDINGS: An IVC filter is unchanged in position. Prior cholecystectomy. Large amount well-formed sto ol seen throughout the colon. No evidence for bowel obstruction. Right Port-A-Cath terminates at the SVC. No renal calculi. No ureteral calculi. No pneumoperitoneum or pneumatosis. IMPRESSION: Large amount of well-formed stool seen throughout the colon. No evidence for bowel obstruction. ACT 112: Negative or not required by law. Electronically signed by: Malick Do M.D. 02/21/2022 11:16 AM
[2022-02-21] MEDS: CRESEMBA PO SCH (16:10)
--- NOTE | 2022-02-21 17:14 | Hospitalist Progress Note ---
Date of Service February 21, 2022 Assessment & Plan (1) Cellulitis of left leg: (2) Symptomatic anemia: (3) AML (acute myeloblastic leukemia): (4) HTN (hypertension): (5) Hypothyroidism: (6) Pancytopenia due to antineoplastic chemotherapy: (7) Follicular lymphoma: (8) Immunosuppressed status: Plan: Patient is a 76 yr female with H/O AML, recurrent follicular lymphoma, history of mucoepidermoid carcinoma, pancytopenia, PAF, HTN, HLD, CKD stage III, thoracic aortic aneurysm, history of DVT status post IVCF, depression with anxiety who presents to ED secondary to bone pain x2 to 3 weeks. Pt does not meet SIRS/SEPSIS criteria on admission. Symptomatic anemia Pancytopenia in setting of AML, hx of Recurrent Follicular Lymphoma, recent bone marrow bx showed 18% myeloblasts Thrombocytopenia S/P 3 units PRBCs S/P 3 units Platelets Monitor CBC Peripheral smear: (+) blasts DIC work up: LDH negative Fibrinogen 566, Fibrin products <10, D dimer 1640 Follows with [facility] oncology as outpatient Plan to transfuse platelets if less than 10K or any acute bleeding Currently on venetoclax daily, last chemo 01/29 Continue with acyclovir and Cresemba Overall picture suggesting progression of AML Needs follow up with Oncology upon discharge Continue pain control Will transfuse 2 units PRBCs today No bleeding issues Left lower extremity cellulitis Blood cultures : negative Negative MRSA Continue IV Rocephin>>Cefdinir Improved Bilateral lower extremity edema Grade 2 Diastolic CHF Received 40 mg IV Lasix continue metoprolol and Aldactone Last echo was suggestive of grade 2 diastolic dysfunction Hold Lasix as Hyponatremia worsening monitor Hyponatremia Likely due to diuretics Monitor Held diuretics Constipation Continue bowel regimen Enema today PAF Continue amiodarone and metoprolol Currently normal sinus rhythm Off anticoagulants in setting of pancytopenia Elevated High Sensitivity troponin Likely demand ischemia in setting of anemia, Infection CKD III Cr at baseline monitor Avoid nephrotoxic agents DVT Px: SCDs Re:Thrombocytopenia Code Status FULL CODE PCP: Joanne Admission and Anticipated Discharge Date Admission Date: February 11, 2022 Subjective Patient is seen and examined at bedside States feeling tired No BM today lower back, leg pain is better today Denies chest pain, dyspnea, dizziness, nausea, abdominal pain Platelet count dropped today Review of Systems Review of Systems: All systems reviewed & are unremarkable except as noted in Subjective Physical Exam Physical Exam: Physical Exam: Vitals signs as noted above General Appearance:Moderately built and nourished, no apparent distress Head: normocephalic, Atraumatic Eyes: normal inspection, EOMI Neck: supple, Trachea midline Respiratory/Chest: Normal breath sounds, CTA, No accessory muscle use, R port Cardiovascular: S1, S2, +murmur Abdomen/GI:Soft, Non tender, Bowel sounds present Extremities/Musculoskeletal:normal inspection, +LE edema, left lower extremity erythema improved Neurologic/Psych:AAOX3, grossly no focal neurological deficits Skin: normal color, warm Results & Data Results & Data ([facility]) Vital Signs (Past 12 Hours) Vital Signs Temp Pulse Pulse Resp BP BP Pulse Ox 02/21/22 15:09 76 02/21/22 14:49 36.6 C 77 18 129/58 L 97 02/21/22 11:49 74 14 115/55 L 95 02/21/22 11:01 73 14 125/61 94 02/21/22 10:31 72 14 112/57 L 91 02/21/22 10:16 36.7 C 75 74 H 114/55 L 93 02/21/22 09:54 36.7 C 78 16 116/58 L 93 02/21/22 07:55 36.8 C 78 18 130/56 L 96 02/21/22 07:54 69 Laboratory Results Short CBC 02/21/22 Range/Units 05:40 WBC 1.33 L (4.8-10.8) K/uL Hgb 8.3 L (12.0-16.0) g/dL Hct 24.0 L (37-47) % Plt Count 8 L* (130-400) K/uL BMP 02/21/22 05:40 Sodium 128 L Potassium 4.5 Chloride 92 L Carbon Dioxide 31 BUN 24 H Creatinine 0.92 Glucose 108 H Calcium 8.7
[2022-02-21] MEDS: VENLAFAXINE HCL XR 75 MG CAPXR PO SCH (21:00)
[2022-02-21] MEDS: SODIUM CHLORIDE 0.9% 500 ML IV SCH (22:33)
[2022-02-21] MEDS: DICLOFENAC SOD 1% GEL 100 GM TUBE EXT PRN (23:52)
[2022-02-22] MEDS: oxyCODONE HCL IR 5 MG TAB (IMMEDIATE RELEASE) PO PRN ×6 (01:00→21:54)
[2022-02-22 06:17] LABS: BUN Creatinine Ratio 26.4 (10-20); Calcium 8.7 mg/dl (8.5-10.1); Creatinine Clr Calc Pharmacy 57.7 ml/min; Est GFR (African American) 70.5 ml/min; Est GFR (Non-African American) 60.9 ml/min; Potassium 4.6 mmol/L (3.5-5.1)
[2022-02-22 06:19] LABS: ALC (manual) 0.22 K/uL (1.2-3.4); ANC (manual) 1.17 K/uL (1.4-6.5); Basophilic Stippling 1+; Blast # (manual) 0.01 K/uL (0-0); Blast Cells % (manual) 0.9 %; Hematocrit (blood only) 22.4 % (37-47); Hemoglobin 7.7 g/dL (12.0-16.0); Lymphocytes # (manual) 0.22 K/uL (1.2-3.4); Lymphocytes % (manual) 15.8 %; Mean Corpuscular Hemoglobin 28.7 pg (25-34); Mean Corpuscular Hgb Conc 34.4 g/dL (32-36); Mean Corpuscular Volume 83.6 fL (80-100); Monocytes # (manual) 0.01 K/uL (0.11-0.59); Monocytes % (manual) 0.9 %; Platelet Count 21 K/uL (130-400); Platelet Estimate SIGNIFIC DECREASED (Normal); RDW Coefficient of Variation 15.1 % (11.5-14.5); RDW Standard Deviation 46.6 fL (36.4-46.3); Red Blood Count 2.68 M/uL (4.2-5.4); White Blood Count 1.42 K/uL (4.8-10.8)
[2022-02-22] MEDS: LEVOTHYROXINE SODIUM 125 MCG TABLET PO SCH (06:41)
[2022-02-22] MEDS ORDERED: bisacodyL 10 MG SUPP PR PRN (07:55)
[2022-02-22] MEDS: CHECK fentaNYL PATCH PLACEMENT SCH ×3 (09:23→23:15)
[2022-02-22] MEDS: ACYCLOVIR 400 MG TAB PO SCH ×2 (09:24→19:52)
[2022-02-22] MEDS: allopurinoL 300 MG TAB PO SCH (09:25)
[2022-02-22] MEDS: GABAPENTIN 300 MG CAP PO SCH ×4 (09:25→19:24)
[2022-02-22] MEDS: AMIODARONE 200 MG TAB PO SCH (09:25)
[2022-02-22] MEDS: DOCUSATE SODIUM 100 MG CAP PO SCH ×2 (09:25→19:22)
[2022-02-22] MEDS: SENNA 8.6 MG TAB PO SCH (09:25)
[2022-02-22] MEDS: METOPROLOL SUCC 25MG EXT REL TAB PO SCH (09:26)
[2022-02-22] MEDS: FLUTICASONE PROPIONATE NA SPR 16 GM BTL SCH (09:26)
[2022-02-22] MEDS: VENETOCLAX PO SCH (09:27)
[2022-02-22] MEDS: ROSUVASTATIN CALCIUM 20 MG TAB PO SCH (09:27)
[2022-02-22] MEDS: POLYETHYLENE (MIRALAX) 17 GM PACK PO SCH (09:27)
[2022-02-22] MEDS: PANTOprazole 40 MG TAB PO SCH (09:27)
[2022-02-22] MEDS: SPIRONOLACTONE 12.5 MG TAB PO SCH (09:28)
[2022-02-22] MEDS: CEFDINIR 300 MG CAP PO SCH ×2 (09:28→19:52)
[2022-02-22] MEDS: ACETAMINOPHEN 325 MG TAB PO PRN (11:58)
[2022-02-22] MEDS: fentaNYL 25 MCG/HR TDSY TD SCH (16:23)
[2022-02-22] MEDS: CRESEMBA PO SCH (16:27)
--- NOTE | 2022-02-22 16:55 | Hospitalist Progress Note ---
Date of Service February 22, 2022 Assessment & Plan (1) Cellulitis of left leg: (2) Symptomatic anemia: (3) AML (acute myeloblastic leukemia): (4) HTN (hypertension): (5) Hypothyroidism: (6) Pancytopenia due to antineoplastic chemotherapy: (7) Follicular lymphoma: (8) Immunosuppressed status: Plan: Patient is a 76 yr female with H/O AML, recurrent follicular lymphoma, history of mucoepidermoid carcinoma, pancytopenia, PAF, HTN, HLD, CKD stage III, thoracic aortic aneurysm, history of DVT status post IVCF, depression with anxiety who presents to ED secondary to bone pain x2 to 3 weeks. Pt does not meet SIRS/SEPSIS criteria on admission. Symptomatic anemia Pancytopenia in setting of AML, hx of Recurrent Follicular Lymphoma, recent bone marrow bx showed 18% myeloblasts Thrombocytopenia S/P 3 units PRBCs S/P 5 units Platelets Monitor CBC Peripheral smear: (+) blasts DIC work up: LDH negative Fibrinogen 566, Fibrin products <10, D dimer 1640 Follows with [facility] oncology as outpatient Plan to transfuse platelets if less than 10K or any acute bleeding Currently on venetoclax daily, last chemo 01/29 Continue with acyclovir and Cresemba Overall picture suggesting progression of AML Needs follow up with Oncology upon discharge Continue pain control Had minimal Hemorrhoidal bleed as per patient Hb 7.7 today Monitor daily CBC Left lower extremity cellulitis Blood cultures : negative Negative MRSA Continue IV Rocephin>>Cefdinir Improved Bilateral lower extremity edema Grade 2 Diastolic CHF Received 40 mg IV Lasix continue metoprolol and Aldactone Last echo was suggestive of grade 2 diastolic dysfunction Hold Lasix as Hyponatremia worsening monitor Hyponatremia Likely due to diuretics Monitor Held diuretics Sodium 128 today Constipation Continue bowel regimen Encourage to ambulate Enema as needed PAF Continue amiodarone and metoprolol Currently normal sinus rhythm Off anticoagulants in setting of pancytopenia Elevated High Sensitivity troponin Likely demand ischemia in setting of anemia, Infection CKD III Cr at baseline monitor Avoid nephrotoxic agents DVT Px: SCDs Re:Thrombocytopenia Code Status FULL CODE PCP: Joanne Admission and Anticipated Discharge Date Admission Date: February 11, 2022 Subjective Patient is seen and examined at bedside Reports mild headache this morning Constant bone pain Nausea earlier today which resolved Still has constipated Denies chest pain, dyspnea, dizziness, abdominal pain Review of Systems Review of Systems: All systems reviewed & are unremarkable except as noted in Subjective Physical Exam Physical Exam: Physical Exam: Vitals signs as noted above General Appearance:Moderately built and nourished, no apparent distress Head: normocephalic, Atraumatic Eyes: normal inspection, EOMI Neck: supple, Trachea midline Respiratory/Chest: Normal breath sounds, CTA, No accessory muscle use, R port Cardiovascular: S1, S2, +murmur Abdomen/GI:Soft, Non tender, Bowel sounds present Extremities/Musculoskeletal:normal inspection, +LE edema, left lower extremity erythema improved Neurologic/Psych:AAOX3, grossly no focal neurological deficits Skin: normal color, warm Results & Data Results & Data ([facility]) Vital Signs (Past 12 Hours) Vital Signs Temp Pulse Pulse Resp BP Pulse Ox 02/22/22 16:42 36.6 C 77 20 145/71 H 92 02/22/22 14:54 70 02/22/22 10:43 74 02/22/22 08:35 36.6 C 79 16 137/70 95 Laboratory Results Short CBC 02/22/22 Range/Units 05:27 WBC 1.42 L (4.8-10.8) K/uL Hgb 7.7 L (12.0-16.0) g/dL Hct 22.4 L (37-47) % Plt Count 21 L* D (130-400) K/uL BMP 02/22/22 05:27 Sodium 128 L Potassium 4.6 Chloride 92 L Carbon Dioxide 30 BUN 24 H Creatinine 0.91 Glucose 115 H Calcium 8.7
[2022-02-22] MEDS: VENLAFAXINE HCL XR 75 MG CAPXR PO SCH (19:52)
[2022-02-22] MEDS: SODIUM CHLORIDE 0.9% 500 ML IV SCH (21:54)
[2022-02-23] MEDS: LEVOTHYROXINE SODIUM 125 MCG TABLET PO SCH (05:37)
--- NOTE | 2022-02-23 07:03 | XRay Report ---
KUB CLINICAL HISTORY: Constipation. COMPARISON STUDY: CT of the abdomen and pelvis February 11, 2022. KUB February 21, 2022. FINDINGS: IVC filter and cholecystectomy clips are noted. There is no evidence for a bowel obstructio n. There is no fluid within the rectum. Moderate amount of stool within the colon is present. This retana s slightly decreased since prior exam. IMPRESSION: 1. No evidence for a bowel obstruction. 2. Moderate amount of stool within the colon. ACT 112: Negative or not required by law. Electronically signed by: Stevenson Coreas M.D. 02/23/2022 7:01 AM
[2022-02-23 07:43] LABS: Hematocrit (blood only) 20.5 % (37-47); Hemoglobin 7.1 g/dL (12.0-16.0); Mean Corpuscular Hemoglobin 28.9 pg (25-34); Mean Corpuscular Hgb Conc 34.6 g/dL (32-36); Mean Corpuscular Volume 83.3 fL (80-100); Mean Platelet Volume 9.2 fL (7.4-10.4); Platelet Count 11 K/uL (130-400); RDW Coefficient of Variation 15.1 % (11.5-14.5); RDW Standard Deviation 46.6 fL (36.4-46.3); Red Blood Count 2.46 M/uL (4.2-5.4)
[2022-02-23 07:45] LABS: ALC (manual) 0.32 K/uL (1.2-3.4); ANC (manual) 0.86 K/uL (1.4-6.5); Anisocytosis Present; Blast # (manual) 0.01 K/uL (0-0); Blast Cells % (manual) 0.9 %; Lymphocytes # (manual) 0.32 K/uL (1.2-3.4); Lymphocytes % (manual) 26.5 %; Monocytes # (manual) 0.01 K/uL (0.11-0.59); Monocytes % (manual) 0.9 %; Neutrophils # (manual) 0.86 K/uL (1.4-6.5); Neutrophils % (manual) 71.7 %
[2022-02-23] MEDS ORDERED: SODIUM CHLORIDE 0.9% 250 ML IV PRN (07:48)
[2022-02-23] MEDS ORDERED: FUROSEMIDE INJ 20 MG/2 ML VIAL IV ONE ×2 (07:49→13:30)
[2022-02-23 07:52] LABS: BUN Creatinine Ratio 33.3 (10-20); Calcium 8.4 mg/dl (8.5-10.1); Creatinine Clr Calc Pharmacy 70.1 ml/min; Est GFR (African American) 89.1 ml/min; Est GFR (Non-African American) 76.9 ml/min; Magnesium 1.9 mg/dl (1.7-2.4); Potassium 4.4 mmol/L (3.5-5.1)
[2022-02-23] MEDS: oxyCODONE HCL IR 5 MG TAB (IMMEDIATE RELEASE) PO PRN ×4 (08:24→21:09)
[2022-02-23] MEDS: CHECK fentaNYL PATCH PLACEMENT SCH ×2 (08:25→15:26)
[2022-02-23] MEDS: ACETAMINOPHEN 325 MG TAB PO PRN ×4 (08:25→21:08)
[2022-02-23] MEDS: GABAPENTIN 300 MG CAP PO SCH ×4 (08:25→19:56)
[2022-02-23] MEDS: FLUTICASONE PROPIONATE NA SPR 16 GM BTL SCH (08:27)
[2022-02-23] MEDS: ACYCLOVIR 400 MG TAB PO SCH ×2 (08:55→19:55)
[2022-02-23] MEDS: allopurinoL 300 MG TAB PO SCH (08:55)
[2022-02-23] MEDS: METOPROLOL SUCC 25MG EXT REL TAB PO SCH (08:56)
[2022-02-23] MEDS: DOCUSATE SODIUM 100 MG CAP PO SCH ×2 (08:56→19:54)
[2022-02-23] MEDS: AMIODARONE 200 MG TAB PO SCH (08:56)
[2022-02-23] MEDS: PANTOprazole 40 MG TAB PO SCH (08:57)
[2022-02-23] MEDS: POLYETHYLENE (MIRALAX) 17 GM PACK PO SCH (08:57)
[2022-02-23] MEDS: SPIRONOLACTONE 12.5 MG TAB PO SCH (08:58)
[2022-02-23] MEDS: SENNA 8.6 MG TAB PO SCH (08:58)
[2022-02-23] MEDS: VENETOCLAX PO SCH (08:58)
[2022-02-23] MEDS: ROSUVASTATIN CALCIUM 20 MG TAB PO SCH (08:58)
--- NOTE | 2022-02-23 10:17 | CT Scan Report ---
ABDOMEN AND PELVIS CT WITHOUT CONTRAST CT DOSE: 520.81 mGy.cm HISTORY: Acute generalized abdominal pain R/O Retroperitoneal bleed TECHNIQUE: Multiaxial CT images of the abdomen and pelvis were performed without contrast. A dose lo wering technique was utilized adhering to the principles of ALARA. COMPARISON STUDY: CT abdomen and pelvis 02/11/2022 FINDINGS: Cardiomegaly with coronary artery calcifications. Decreased attenuation of the cardiac blood pool sug gestive of anemia. Subsegmental bibasilar atelectasis. There is no pneumatosis or pneumoperitoneum. T he unenhanced spleen is mildly enlarged at 13.5 cm. The pancreas and adrenal glands are unremarkable. Cholecystectomy with unchanged moderate biliary ductal dilation. Unremarkable unenhanced liver. Punctate nonobstructing left renal calculi redemonstrated. No ureteral calculi or hydronephrosis. Non specific urinary bladder wall thickening. Hysterectomy. Atherosclerosis of the aorta. No lymphadenopa thy. Infrahepatic IVC filter. No bowel obstruction. Moderate fecal retention. There is persistent per irectal and presacral inflammatory stranding. No abscess. Colonic diverticulosis. Moderate fecal rete ntion. Noninflamed appendix. Mild generalized body wall edema. No retroperitoneal hematoma. Pelvic co llaterals redemonstrated. Chronic T12 compression deformity. L3 vertebral body hemangioma. Chronic L5 pars defects. IMPRESSION: 1. Unchanged perirectal and presacral inflammatory stranding. No fluid collection to suggest abscess. 2. Colonic diverticulosis without acute diverticulitis. 3. Moderate fecal retention. 4. Punctate nonobstructing left nephrolithiasis. 5. No retroperitoneal hematoma identified. 6. Additional findings as above. ACT 112: Negative or not required by law. The above report was generated using voice recognition software. It may contain grammatical, syntax o r spelling errors. Electronically signed by: Stephen Rebolledo M.D. 02/23/2022 10:14 AM
[2022-02-23] MEDS ORDERED: SOD PHOSPHATE/SOD BIPHOSPHATE ENEMA 132 ML BTL PR ONE (14:00)
--- NOTE | 2022-02-23 14:43 | Hospitalist Progress Note ---
Date of Service February 23, 2022 Assessment & Plan (1) Cellulitis of left leg: (2) Symptomatic anemia: (3) AML (acute myeloblastic leukemia): (4) HTN (hypertension): (5) Hypothyroidism: (6) Pancytopenia due to antineoplastic chemotherapy: (7) Follicular lymphoma: (8) Immunosuppressed status: Plan: Patient is a 76 yr female with H/O AML, recurrent follicular lymphoma, history of mucoepidermoid carcinoma, pancytopenia, PAF, HTN, HLD, CKD stage III, thoracic aortic aneurysm, history of DVT status post IVCF, depression with anxiety who presents to ED secondary to bone pain x2 to 3 weeks. Pt does not meet SIRS/SEPSIS criteria on admission. Symptomatic anemia Pancytopenia in setting of AML, hx of Recurrent Follicular Lymphoma, recent bone marrow bx showed 18% myeloblasts Thrombocytopenia S/P 3 units PRBCs S/P 5 units Platelets Monitor CBC Peripheral smear: (+) blasts DIC work up: LDH negative Fibrinogen 566, Fibrin products <10, D dimer 1640 Follows with [facility] oncology as outpatient Plan to transfuse platelets if less than 10K or any acute bleeding Currently on venetoclax daily, last chemo 01/29 Continue with acyclovir and Cresemba Overall picture suggesting progression of AML Needs follow up with Oncology upon discharge Continue pain control Had minimal Hemorrhoidal bleed as per patient Hb dropped to 7.1 and platelet counts dropped to 11K today Will transfuse 2 units PRBCs Discussed with Oncology today CT abd showed no signs of retroperitoneal bleed Will recheck LDH, Retic count Palliative care consulted to address goals of care Left lower extremity cellulitis Blood cultures : negative Negative MRSA Continue IV Rocephin>>Cefdinir--completed course Bilateral lower extremity edema Grade 2 Diastolic CHF Received 40 mg IV Lasix continue metoprolol and Aldactone Last echo was suggestive of grade 2 diastolic dysfunction Hold Lasix as Hyponatremia worsening monitor Hyponatremia Likely due to diuretics Monitor Held diuretics Sodium 129 today Constipation Continue bowel regimen Encourage to ambulate Enema as needed PAF Continue amiodarone and metoprolol Currently normal sinus rhythm Off anticoagulants in setting of pancytopenia Elevated High Sensitivity troponin Likely demand ischemia in setting of anemia, Infection CKD III Cr at baseline monitor Avoid nephrotoxic agents DVT Px: SCDs Re:Thrombocytopenia Code Status FULL CODE PCP: Joanne Admission and Anticipated Discharge Date Admission Date: February 11, 2022 Subjective Patient is seen and examined at bedside States feeling "Shaky" earlier today which later resolved Persistent generalized bone pain Discussed with Oncology today Denies chest pain, dyspnea, dizziness, abdominal pain Patient prefers to discuss with palliative care Review of Systems Review of Systems: All systems reviewed & are unremarkable except as noted in Subjective Physical Exam Physical Exam: Physical Exam: Vitals signs as noted above General Appearance:Moderately built and nourished, no apparent distress Head: normocephalic, Atraumatic Eyes: normal inspection, EOMI Neck: supple, Trachea midline Respiratory/Chest: Normal breath sounds, CTA, No accessory muscle use, R port Cardiovascular: S1, S2, +murmur Abdomen/GI:Soft, Non tender, Bowel sounds present Extremities/Musculoskeletal:normal inspection, +LE edema, left lower extremity erythema improved Neurologic/Psych:AAOX3, grossly no focal neurological deficits Skin: normal color, warm Results & Data Results & Data ([facility]) Vital Signs (Past 12 Hours) Vital Signs Temp Pulse Pulse Resp BP BP Pulse Ox 02/23/22 14:17 36.7 C 75 18 104/47 L 96 02/23/22 13:12 36.7 C 75 18 104/47 L 96 02/23/22 12:40 36.8 C 74 18 107/55 L 93 02/23/22 11:40 36.6 C 72 18 130/55 L 93 02/23/22 11:27 72 02/23/22 11:10 36.7 C 70 18 109/56 L 94 02/23/22 10:55 36.8 C 72 18 106/50 L 95 02/23/22 10:34 36.8 C 72 18 109/54 L 96 02/23/22 10:29 36.8 C 72 18 109/54 L 96 02/23/22 08:25 36.8 C 84 24 136/61 94 02/23/22 04:45 36.8 C 75 18 129/70 93 Laboratory Results Short CBC 02/23/22 Range/Units 06:36 WBC 1.20 L (4.8-10.8) K/uL Hgb 7.1 L (12.0-16.0) g/dL Hct 20.5 L* (37-47) % Plt Count 11 L* (130-400) K/uL BMP 02/23/22 06:36 Sodium 129 L Potassium 4.4 Chloride 94 L Carbon Dioxide 30 BUN 25 H Creatinine 0.75 Glucose 106 H Calcium 8.4 L
[2022-02-23] MEDS: CRESEMBA PO SCH (17:04)
[2022-02-23] MEDS: VENLAFAXINE HCL XR 75 MG CAPXR PO SCH (19:56)
[2022-02-23] MEDS: SODIUM CHLORIDE 0.9% 500 ML IV SCH (23:00)
[2022-02-24] MEDS: CHECK fentaNYL PATCH PLACEMENT SCH ×4 (00:20→23:01)
[2022-02-24] MEDS: ACETAMINOPHEN 325 MG TAB PO PRN ×5 (02:33→20:05)
[2022-02-24] MEDS: oxyCODONE HCL IR 5 MG TAB (IMMEDIATE RELEASE) PO PRN ×5 (02:35→20:05)
[2022-02-24 04:55] LABS: BUN Creatinine Ratio 30.2 (10-20); Calcium 8.7 mg/dl (8.5-10.1); Creatinine Clr Calc Pharmacy 61.2 ml/min; Est GFR (African American) 75.5 ml/min; Est GFR (Non-African American) 65.2 ml/min; Potassium 4.7 mmol/L (3.5-5.1)
[2022-02-24] MEDS: LEVOTHYROXINE SODIUM 125 MCG TABLET PO SCH (05:17)
[2022-02-24 05:21] LABS: ALC (manual) 0.31 K/uL (1.2-3.4); ANC (manual) 1.08 K/uL (1.4-6.5); Blast # (manual) 0.05 K/uL (0-0); Blast Cells % (manual) 3.5 %; Hematocrit (blood only) 27.9 % (37-47); Hemoglobin 9.7 g/dL (12.0-16.0); Lymphocytes # (manual) 0.31 K/uL (1.2-3.4); Lymphocytes % (manual) 21.7 %; Mean Corpuscular Hemoglobin 29.1 pg (25-34); Mean Corpuscular Hgb Conc 34.8 g/dL (32-36); Mean Corpuscular Volume 83.8 fL (80-100); Mean Platelet Volume 9.7 fL (7.4-10.4); Neutrophils # (manual) 1.08 K/uL (1.4-6.5); Neutrophils % (manual) 74.8 %; Platelet Count 10 K/uL (130-400); RBC Morphology Unremarkable; RDW Coefficient of Variation 14.6 % (11.5-14.5); RDW Standard Deviation 45.4 fL (36.4-46.3); Red Blood Count 3.33 M/uL (4.2-5.4); White Blood Count 1.44 K/uL (4.8-10.8)
[2022-02-24 05:23] LABS: Reticulocyte % < 0.5 % (0.5-2.0); Reticulocytes # < 0.02 10^6/uL (0.02-0.10)
[2022-02-24] MEDS: GABAPENTIN 300 MG CAP PO SCH ×4 (09:32→20:11)
[2022-02-24] MEDS: ROSUVASTATIN CALCIUM 20 MG TAB PO SCH (09:33)
[2022-02-24] MEDS: allopurinoL 300 MG TAB PO SCH (09:33)
[2022-02-24] MEDS: AMIODARONE 200 MG TAB PO SCH (09:33)
[2022-02-24] MEDS: FLUTICASONE PROPIONATE NA SPR 16 GM BTL SCH (09:34)
[2022-02-24] MEDS: METOPROLOL SUCC 25MG EXT REL TAB PO SCH (09:34)
[2022-02-24] MEDS: ACYCLOVIR 400 MG TAB PO SCH ×2 (09:34→20:12)
[2022-02-24] MEDS: DOCUSATE SODIUM 100 MG CAP PO SCH ×2 (09:34→20:10)
[2022-02-24] MEDS: PANTOprazole 40 MG TAB PO SCH (09:35)
[2022-02-24] MEDS: VENETOCLAX PO SCH (09:36)
[2022-02-24] MEDS: POLYETHYLENE (MIRALAX) 17 GM PACK PO SCH (09:36)
[2022-02-24] MEDS: SPIRONOLACTONE 12.5 MG TAB PO SCH (09:36)
[2022-02-24] MEDS: SENNA 8.6 MG TAB PO SCH (09:36)
[2022-02-24] MEDS: HYDROmorphone INJ 0.5 MG/0.5 ML SYR IV PRN ×3 (09:50→22:18)
[2022-02-24] MEDS: LACTULOSE SYRUP 20 GM/30 ML UDC PO SCH (09:50)
[2022-02-24] MEDS: DICLOFENAC SOD 1% GEL 100 GM TUBE EXT PRN ×2 (10:47→20:12)
[2022-02-24] MEDS: CRESEMBA PO SCH (16:26)
--- NOTE | 2022-02-24 17:04 | Hospitalist Progress Note ---
Date of Service February 24, 2022 Assessment & Plan (1) Cellulitis of left leg: (2) Symptomatic anemia: (3) AML (acute myeloblastic leukemia): (4) HTN (hypertension): (5) Hypothyroidism: (6) Pancytopenia due to antineoplastic chemotherapy: (7) Follicular lymphoma: (8) Immunosuppressed status: Plan: Patient is a 76 yr female with H/O AML, recurrent follicular lymphoma, history of mucoepidermoid carcinoma, pancytopenia, PAF, HTN, HLD, CKD stage III, thoracic aortic aneurysm, history of DVT status post IVCF, depression with anxiety who presents to ED secondary to bone pain x2 to 3 weeks. Pt does not meet SIRS/SEPSIS criteria on admission. Symptomatic anemia Pancytopenia in setting of AML, hx of Recurrent Follicular Lymphoma, recent bone marrow bx showed 18% myeloblasts Thrombocytopenia S/P 5 units PRBCs S/P 5 units Platelets Monitor CBC Peripheral smear: (+) blasts DIC work up: LDH normal Fibrinogen 566, Fibrin products <10, D dimer 1640, Retic Count <0.02 Follows with [facility] oncology as outpatient Discussed with Oncology on 02/23/22 CT abd showed no signs of retroperitoneal bleed Plan to transfuse platelets if less than 10K or any acute bleeding Currently on venetoclax daily, last chemo 01/29 Continue with acyclovir and Cresemba Overall picture suggesting progression of AML, Poor Prognosis Needs follow up with Oncology upon discharge Continue pain control No acute bleeding issues Hemoglobin 9.7, platelet 10K today Palliative care consulted to address goals of care Clinically deteriorating Left lower extremity cellulitis Blood cultures : negative Negative MRSA Continue IV Rocephin>>Cefdinir--completed course Bilateral lower extremity edema Grade 2 Diastolic CHF Received 40 mg IV Lasix continue metoprolol and Aldactone Last echo was suggestive of grade 2 diastolic dysfunction Hold Lasix as Hyponatremia worsening monitor Hyponatremia Likely due to diuretics Monitor Held diuretics Sodium 129 today Constipation Continue bowel regimen Encourage to ambulate Enema as needed Started on Lactulose as well KUB in AM PAF Continue amiodarone and metoprolol Currently normal sinus rhythm Off anticoagulants in setting of pancytopenia Elevated High Sensitivity troponin Likely demand ischemia in setting of anemia, Infection CKD III Cr at baseline monitor Avoid nephrotoxic agents DVT Px: SCDs Re:Thrombocytopenia Code Status FULL CODE PCP: Joanne Admission and Anticipated Discharge Date Admission Date: February 11, 2022 Subjective Patient is seen and examined at bedside States having significant bone pain today No new complaints Denies chest pain, dyspnea, dizziness, abdominal pain, nausea/vomiting Review of Systems Review of Systems: All systems reviewed & are unremarkable except as noted in Subjective Physical Exam Physical Exam: Physical Exam: Vitals signs as noted above General Appearance:Moderately built and nourished, no apparent distress Head: normocephalic, Atraumatic Eyes: normal inspection, EOMI Neck: supple, Trachea midline Respiratory/Chest: Normal breath sounds, CTA, No accessory muscle use, R port Cardiovascular: S1, S2, +murmur Abdomen/GI:Soft, Non tender, Bowel sounds present Extremities/Musculoskeletal:normal inspection, +LE edema, left lower extremity erythema improved Neurologic/Psych:AAOX3, grossly no focal neurological deficits Skin: normal color, warm Results & Data Results & Data ([facility]) Vital Signs (Past 12 Hours) Vital Signs Temp Pulse Pulse Resp BP Pulse Ox 02/24/22 16:06 36.9 C 70 16 118/57 L 94 02/24/22 14:48 73 02/24/22 12:56 36.5 C 70 16 117/57 L 92 02/24/22 07:37 36.5 C 68 16 122/62 93 02/24/22 07:04 66 Laboratory Results Short CBC 02/24/22 Range/Units 03:41 WBC 1.44 L (4.8-10.8) K/uL Hgb 9.7 L (12.0-16.0) g/dL Hct 27.9 L (37-47) % Plt Count 10 L* (130-400) K/uL BMP 02/24/22 03:41 Sodium 129 L Potassium 4.7 Chloride 93 L Carbon Dioxide 31 BUN 26 H Creatinine 0.86 Glucose 117 H Calcium 8.7
[2022-02-24] MEDS: VENLAFAXINE HCL XR 75 MG CAPXR PO SCH (20:10)
[2022-02-24] MEDS: SODIUM CHLORIDE 0.9% 500 ML IV SCH (20:13)
[2022-02-25] MEDS: ACETAMINOPHEN 325 MG TAB PO PRN ×2 (03:05→15:31)
[2022-02-25] MEDS: oxyCODONE HCL IR 5 MG TAB (IMMEDIATE RELEASE) PO PRN ×4 (03:05→20:27)
[2022-02-25] MEDS: LEVOTHYROXINE SODIUM 125 MCG TABLET PO SCH (05:05)
[2022-02-25] MEDS: HYDROmorphone INJ 0.5 MG/0.5 ML SYR IV PRN ×2 (05:05→11:18)
[2022-02-25 06:24] LABS: BUN Creatinine Ratio 28.6 (10-20); Calcium 8.7 mg/dl (8.5-10.1); Creatinine Clr Calc Pharmacy 62.3 ml/min; Est GFR (African American) 77.7 ml/min; Potassium 4.9 mmol/L (3.5-5.1)
[2022-02-25 06:41] LABS: Hematocrit (blood only) 28.5 % (37-47); Hemoglobin 9.8 g/dL (12.0-16.0); Mean Corpuscular Hemoglobin 29.4 pg (25-34); Mean Corpuscular Hgb Conc 34.4 g/dL (32-36); Mean Corpuscular Volume 85.6 fL (80-100); Mean Platelet Volume 8.9 fL (7.4-10.4); Platelet Count 5 K/uL (130-400); RDW Coefficient of Variation 14.8 % (11.5-14.5); RDW Standard Deviation 46.6 fL (36.4-46.3); Red Blood Count 3.33 M/uL (4.2-5.4); White Blood Count 1.16 K/uL (4.8-10.8)
[2022-02-25 06:43] LABS: RBC Morphology Unremarkable
[2022-02-25 06:44] LABS: ALC (manual) 0.35 K/uL (1.2-3.4); ANC (manual) 0.74 K/uL (1.4-6.5); Blast # (manual) 0.05 K/uL (0-0); Blast Cells % (manual) 4.3 %; Eosinophils # (manual) 0.01 K/uL (0-0.5); Eosinophils % (manual) 0.9 %; Lymphocytes # (manual) 0.35 K/uL (1.2-3.4); Lymphocytes % (manual) 30.2 %; Monocytes # (manual) 0.01 K/uL (0.11-0.59); Monocytes % (manual) 0.9 %; Neutrophils # (manual) 0.74 K/uL (1.4-6.5); Neutrophils % (manual) 63.7 %
--- NOTE | 2022-02-25 07:04 | XRay Report ---
KUB HISTORY: Acute generalized abdominal pain with constipation constipation COMPARISON: CT abdomen and pelvis 02/23/2022 FINDINGS: Nonobstructive bowel gas pattern. Cardiomegaly. IVC filter. Cholecystectomy. Moderate to ex tensive fecal retention has mildly progressed from prior study. No renal calculi. No ureteral calcul i. No pneumoperitoneum or pneumatosis. Degenerative changes of the spine, pelvis and hips. No fractur e. IMPRESSION: 1. Nonobstructive bowel gas pattern. 2. Moderate to extensive fecal retention. ACT 112: Negative or not required by law. The above report was generated using voice recognition software. It may contain grammatical, syntax o r spelling errors. Electronically signed by: Stephen Rebolledo M.D. 02/25/2022 7:03 AM
[2022-02-25] MEDS: CHECK fentaNYL PATCH PLACEMENT SCH ×2 (08:11→18:13)
[2022-02-25] MEDS: METOPROLOL SUCC 25MG EXT REL TAB PO SCH (08:36)
[2022-02-25] MEDS: POLYETHYLENE (MIRALAX) 17 GM PACK PO SCH ×4 (08:37→20:25)
[2022-02-25] MEDS: FLUTICASONE PROPIONATE NA SPR 16 GM BTL SCH (08:37)
[2022-02-25] MEDS: DOCUSATE SODIUM 100 MG CAP PO SCH (08:38)
[2022-02-25] MEDS: GABAPENTIN 300 MG CAP PO SCH ×4 (08:38→20:30)
[2022-02-25] MEDS: VENETOCLAX PO SCH (08:39)
--- NOTE | 2022-02-25 08:49 | Gastrointestinal Consultation ---
Date of Consultation February 25, 2022 Assessment & Plan (1) Constipation: This is a 76 y/o female with AML, chronic pancytopenia requiring transfusions, admitted 02/11/22 with bone pain and lower leg cellulitis. She has received multiple rounds of blood and platelet transfusions and is currently getting another transfusion of platelets this morning. We are consulted for constipation. She reports no real BM in approx 3 weeks since prior to her admission. Imaging w/ moderate-large stool burden and perirectal stranding but no evidence of obstruction or abscess (history of perirectal abscess in December). Likely contributing factors are narcotic analgesia and limited ambulation/ongoing fatigue. On exam abd is soft, she's tolerating a regular diet. Recommend the following adjustments to her bowel regimen: - Given her blood counts recommend avoiding treatments CO including enemas, sup positories - Will recommend tx w/ Miralax 3-4 x a day to help clear the excess stool - Ok to continue Lactulose daily - Colace BID - Will re-evaluate her and assess need for additional therapies pending response - Would aim to keep K > 4 and Mg > 2 for bowel motility. - Appreciate primary team mgmt of her other co-morbidities Thank you for allowing us to participate in the care of this patient. Please call with any acute changes, questions or concerns. Please see addendum below with additional recommendation from my supervising physician. Supervising Physician Co-Signing Physician Notes Attending attestation I have seen, examined this patient, and agree with the findings and above by our mid-level provider Juju Jimenez with the following additions: Patient with AML and complications including pancytopenia Now with likely opioid induced constipation Will attempt oral osmotic laxatives a bit more aggressively, no signs of obstruction Would avoid rectal therapy given WBC ct If failed may need medication such as movantik History of Present Illness Reason for Consultation: Constipation Requesting Physician: Dr. Wilkisnon Attending Physician: Marlo Wilkinson MD History of Present Illness This is a 76 y/o female w/ PMHx AML, recurrent follicular lymphoma, mucoepidermoid carcinoma, pancytopenia requiring transfusions, PAF, HTN, HLD, CKD stage III, thoracic aortic aneurysm, history of DVT status post IVCF, depression with anxiety, CHF, admitted since 02/11/22 after presenting with bone pain, lower leg cellulitis. She has completed ABX for the cellulitis and has been started on narcotic analgesia for the bone pain. She has pancytopenia, recent bone marrow bx showed 18% myeloblasts. Has received pRBC x 5 and platelet transfusion x 5 here so far. Today getting another transfusion of platelets; plt is 5k. She is on venetoclax daily. H/o radiation to the right inguinal area completed 06/08/2021. History of colonic polyps - last colonoscopy in 2018 - TA - repeat 3 years. We are consulted for constipation. She tells me she hasn't moved her bowels in 3 weeks. Nursing notes she had a small loose stool the other day after an enema. Noncontrast CTAP done 02/23 w/ no obstruction; moderate stool burden, stranding in the perirectal region but no apparent abscess. KUB today w/ no obstruction, moderate to extensive fecal retention. She is on Miralax 1 capful daily + Senna once daily along with Colace 100 mg BID. She has received a few tap water enemas and a Fleets enema, also got 1 dose of Lactulose 20 mg. She is passing flatus. Has some generalized abd bloating but no pain. No n/v, she is eating regular foods. Prior to her developing constipation, she had BMs every 2-3 days, formed, no history of such constipation. Denies rectal pain. No fever, chills, CP, SOB. Her potassium and magnesium are generally within normal range. She is feeling weak; not ambulating much. Colonoscopy 2019: - The examined portion of the ileum was normal. - One 15 mm polyp in the cecum, removed with a hot snare. Resected and retrieved. - One 5 mm polyp in the descending colon, removed with a cold snare. Resected and retrieved. - Mild diverticulosis in the sigmoid colon. - Internal hemorrhoids. - The examination was otherwise normal. Allergies Allergy/AdvReac Type Severity Reaction Status Date / Time No Known Allergies Allergy Verified 01/22/22 09:04 Home Medications Medication Instructions Recorded Confirmed Type fluticasone propionate 50 2 spray INTRANASAL QAM 08/03/19 02/11/22 History mcg/actuation nasal spray,suspension (Flonase Allergy Relief) pantoprazole 40 mg tablet,delayed 40 mg PO QAM 08/03/19 02/11/22 History release (Protonix) venlafaxine 75 mg capsule,extended 75 mg PO HS 08/03/19 02/11/22 History release 24 hr (Effexor XR) diclofenac sodium 1 % topical gel 4 g TOPICAL QID PRN 10/21/19 02/11/22 History (Voltaren Arthritis Pain) fluticasone furoate 100 1 inh INHALATION QAM PRN 05/02/21 02/11/22 History mcg-vilanterol 25 mcg/dose inhalation powder (Breo Ellipta) acyclovir 400 mg tablet 400 mg PO BID 09/17/21 02/11/22 History allopurinol 300 mg tablet 300 mg PO DAILY 12/30/21 02/11/22 History cefpodoxime 200 mg tablet 200 mg PO Q12 12/30/21 02/11/22 History isavuconazonium sulfate 186 mg 372 mg PO DAILY 12/30/21 02/11/22 History capsule (Cresemba) levothyroxine 125 mcg tablet 125 mcg PO DAILYBB 12/30/21 02/11/22 History ondansetron HCl 8 mg tablet 8 mg PO Q8H PRN 12/30/21 02/11/22 History amiodarone 200 mg tablet 200 mg PO DAILY 01/05/22 02/11/22 History metoprolol succinate 25 mg 12.5 mg PO DAILY 01/05/22 02/11/22 History tablet,extended release 24 hr rosuvastatin 20 mg tablet 20 mg PO DAILY 01/05/22 02/11/22 History venetoclax 100 mg tablet 100 mg PO DAILY 01/05/22 02/11/22 History (Venclexta) acetaminophen 325 mg tablet 650 mg PO Q6H PRN #30 tab 01/15/22 02/11/22 Rx sennosides 8.6 mg-docusate sodium 1 tab PO QAM PRN #30 tab 01/15/22 02/11/22 Rx 50 mg tablet (Senokot-S) gabapentin 300 mg capsule 300 mg PO 5XD 01/29/22 02/11/22 History spironolactone 25 mg tablet 12.5 mg PO DAILY 01/29/22 02/11/22 History cyclobenzaprine 5 mg tablet 5 mg PO BID PRN #6 tab 02/03/22 02/11/22 Rx Patient History Medical History Acute hyponatremia Acute on chronic anemia AML (acute myeloblastic leukemia) Asthma Well controlled CKD (chronic kidney disease), stage III COPD (chronic obstructive pulmonary disease) Diverticulitis Hx Esophageal reflux Essential tremor Follicular lymphoma History of DVT (deep vein thrombosis) 2007 > in setting prolonged inactivity from hospital admission HLD (hyperlipidemia) HTN (hypertension) Hypothyroidism Pancreatitis Hx Pancytopenia Pancytopenia Post-herpetic trigeminal neuralgia Reason for gabapentin Thoracic aortic aneurysm without rupture Ascending thoracic aorta is ectatic up to 4.4 cm (Previously measured 4.1 cm in 2012. Slowly increasing in size) per 06/2020 CTA, under surveillance by Dr. Cohn Surgical History H/O parotidectomy (11/2003) H/O: hysterectomy History of bone marrow biopsy (10/2011) Jul 2021 History of cataract surgery bilat History of colonoscopy (02/16/19) History of cystoscopy (06/02/12) History of dilatation and curettage History of ERCP (06/21/08) History of esophagogastroduodenoscopy (EGD) (03/06/16) History of excision of lesion (04/02/21) Right Superficial Parotid S/P cholecystectomy S/P insertion of IVC (inferior vena caval) filter (06/26/12) 2012 > Jordon Filter Placement Right Groin Dr. Srivastava at [facility] Status post excisional biopsy (07/07/17) Left Inguinal Lymph Node Dr. Anderson at [facility] Status post fine needle aspiration (04/05/21) Left External Iliac Lymph Node under USG Dr. Coreas at [facility] Status post fine needle aspiration (02/08/19) Right Parotid Gland Lesion Family History Grandmother (Maternal) , Passed Age 52 due to Colon Cancer No problems noted. Father , Passed Age 72 due to Lung Cancer, occupation related No problems noted. Mother , Passed Age 84 of unknown cancer No problems noted. Brother , Passed Age 70 of unknown cancer No problems noted. Brother No problems noted. Daughter CLL (chronic lymphocytic leukemia) Son No problems noted. Son No problems noted. Son No problems noted. Aunt , Passed Age 70 due to Breast Cancer No problems noted. 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 How many Children do You have: 4 Other Information That Helps Us Care for You: No Feels Safe at Home: Yes Safety Concerns: Feels Safe At This Time Childhood Exposure to Second-Hand Smoke: Yes (father smoked in home) caffeine: Yes (cola daily) during the past year weight has: remained stable Dental Care, Regularly: Yes Physical Activity Frequency: Does not Exercise Assistive Devices: Cane Review of Systems Review of Systems: All systems reviewed & are unremarkable except as noted in HPI & below Physical Exam Constitutional: WD/WN, vitals as above (Chronically ill, no acute distress ) Eyes: PERRL, conjunctivae normal, anicteric sclerae Neck: trachea midline, no thyromegaly Respiratory: normal respiratory effort, lungs clear to auscultation Cardiovascular: Heart Sounds: normal S1 and normal S2 + mild bilateral pretibial edema, nonpitting Gastrointestinal (Abdomen): normal bowel sounds, soft, nontender, no hepatosplenomegaly nondistended Skin: no rashes, warm and dry Psychiatric: A+Ox3, euthymic affect Results & Data ([facility]) Vital Signs (Past 12 Hours) Vital Signs Temp Pulse Resp BP Pulse Ox 02/25/22 07:11 36.6 C 66 17 130/62 95 02/25/22 03:17 36.7 C 70 16 127/57 L 97 02/24/22 22:23 36.7 C 69 18 118/56 L 94 Laboratory Results 02/25/22 02/25/22 02/23/22 Range/Units 05:32 05:32 08:10 WBC 1.16 L (4.8-10.8) K/uL RBC 3.33 L (4.2-5.4) M/uL Hgb 9.8 L (12.0-16.0) g/dL Hct 28.5 L (37-47) % MCV 85.6 (80-100) fL MCH 29.4 (25-34) pg MCHC 34.4 (32-36) g/dL RDW Std Deviation 46.6 H (36.4-46.3) fL RDW Coeff of Rosamaria 14.8 H (11.5-14.5) % Plt Count 5 L* (130-400) K/uL MPV 8.9 (7.4-10.4) fL Neutrophils % (Manual) 63.7 % Lymphocytes % (Manual) 30.2 % Monocytes % (Manual) 0.9 % Eosinophils % (Manual) 0.9 % Blast Cells % (Manual) 4.3 % Neutrophils # (Manual) 0.74 L (1.4-6.5) K/uL Total Absolute Neuts 0.74 L* (1.4-6.5) K/uL Lymphocytes # (Manual) 0.35 L (1.2-3.4) K/uL Total Abs Lymphocytes 0.35 L (1.2-3.4) K/uL Monocytes # (Manual) 0.01 L (0.11-0.59) K/uL Eosinophils # (Manual) 0.01 (0-0.5) K/uL Blast Cells # (Man) 0.05 H (0-0) K/uL RBC Morphology Unremarkable Sodium 129 L (136-145) mmol/L Potassium 4.9 (3.5-5.1) mmol/L Chloride 93 L (98-107) mmol/L Carbon Dioxide 31 (21-32) mmol/L Anion Gap 5 (3-11) BUN 24 H (6-23) mg/dl Creatinine 0.84 (0.6-1.2) mg/dl Est Cr Clr Drug Dosing 62.3 ml/min Est GFR ( Amer) 77.7 ml/min Est GFR (Non-Af Amer) 67.0 ml/min BUN/Creatinine Ratio 28.6 H (10-20) Glucose 105 H (70-99(Fasting)) mg/dl Calcium 8.7 (8.5-10.1) mg/dl Blood Type A Positive Antibody Screen NEGATIVE Crossmatch See Detail Diagnostic Findings KUB FINDINGS: Nonobstructive bowel gas pattern. Cardiomegaly. IVC filter. Cholecystectomy. Moderate to extensive fecal retention has mildly progressed from prior study. No renal calculi. No ureteral calculi. No pneumoperitoneum or pneumatosis. Degenerative changes of the spine, pelvis and hips. No fracture. IMPRESSION: 1. Nonobstructive bowel gas pattern. 2. Moderate to extensive fecal retention. CTAP Noncontrast 02/23/22: Cardiomegaly with coronary artery calcifications. Decreased attenuation of the cardiac blood pool suggestive of anemia. Subsegmental bibasilar atelectasis. There is no pneumatosis or pneumoperitoneum. The unenhanced spleen is mildly enlarged at 13.5 cm. The pancreas and adrenal glands are unremarkable. Cholecystectomy with unchanged moderate biliary ductal dilation. Unremarkable unenhanced liver. Punctate nonobstructing left renal calculi redemonstrated. No ureteral calculi or hydronephrosis. Nonspecific urinary bladder wall thickening. Hysterectomy. Atherosclerosis of the aorta. No lymphadenopathy. Infrahepatic IVC filter. No bowel obstruction. Moderate fecal retention. There is persistent perirectal and presacral inflammatory stranding. No abscess. Colonic diverticulosis. Moderate fecal retention. Noninflamed appendix. Mild generalized body wall edema. No retroperitoneal hematoma. Pelvic collaterals redemonstrated. Chronic T12 compression deformity. L3 vertebral body hemangioma. Chronic L5 pars defects. IMPRESSION: 1. Unchanged perirectal and presacral inflammatory stranding. No fluid collection to suggest abscess. 2. Colonic diverticulosis without acute diverticulitis. 3. Moderate fecal retention. 4. Punctate nonobstructing left nephrolithiasis. 5. No retroperitoneal hematoma identified. 6. Additional findings as above.
[2022-02-25] MEDS: allopurinoL 300 MG TAB PO SCH (10:14)
[2022-02-25] MEDS: ACYCLOVIR 400 MG TAB PO SCH ×2 (10:14→20:30)
[2022-02-25] MEDS: LACTULOSE SYRUP 20 GM/30 ML UDC PO SCH (10:14)
[2022-02-25] MEDS: SENNA 8.6 MG TAB PO SCH (10:15)
[2022-02-25] MEDS: PANTOprazole 40 MG TAB PO SCH (10:15)
[2022-02-25] MEDS: AMIODARONE 200 MG TAB PO SCH (10:15)
[2022-02-25] MEDS: ROSUVASTATIN CALCIUM 20 MG TAB PO SCH (10:15)
[2022-02-25] MEDS: BENZOCAINE 20% (ORAJEL) 11.9 GM TUBE MT SCH ×2 (13:06→20:31)
[2022-02-25] MEDS ORDERED: PIPERACILL/TAZOBAC CONSULT ACTIVE PRN (15:55)
[2022-02-25] MEDS ORDERED: PIPERACILLIN/TAZOBACTAM 3.375 GM in DEXTROSE 5% 100 ML IV STA (16:09)
--- NOTE | 2022-02-25 16:20 | Hospitalist Progress Note ---
Date of Service February 25, 2022 Assessment & Plan (1) Cellulitis of left leg: (2) Symptomatic anemia: (3) AML (acute myeloblastic leukemia): (4) HTN (hypertension): (5) Hypothyroidism: (6) Pancytopenia due to antineoplastic chemotherapy: (7) Follicular lymphoma: (8) Immunosuppressed status: Plan: Patient is a 76 yr female with H/O AML, recurrent follicular lymphoma, history of mucoepidermoid carcinoma, pancytopenia, PAF, HTN, HLD, CKD stage III, thoracic aortic aneurysm, history of DVT status post IVCF, depression with anxiety who presents to ED secondary to bone pain x2 to 3 weeks. Pt does not meet SIRS/SEPSIS criteria on admission. Symptomatic anemia Pancytopenia in setting of AML, hx of Recurrent Follicular Lymphoma, recent bone marrow bx showed 18% myeloblasts Thrombocytopenia S/P 5 units PRBCs S/P 7 units Platelets Monitor CBC Peripheral smear: (+) blasts DIC work up: LDH normal Fibrinogen 566, Fibrin products <10, D dimer 1640, Retic Count <0.02 Follows with [facility] oncology as outpatient Discussed with Oncology on 02/23/22 CT abd showed no signs of retroperitoneal bleed Plan to transfuse platelets if less than 10K or any acute bleeding Currently on venetoclax daily, last chemo 01/29 Continue with acyclovir and Cresemba Overall picture suggesting progression of AML, Poor Prognosis Needs follow up with Oncology upon discharge Continue pain control No acute bleeding issues Hemoglobin 9.7, platelet 5K today Palliative care consulted to address goals of care--pending consult Clinically deteriorating 02/25/22 Discussed with patient and patient's POA- Gwen Whatley (Daughter):Goal is comfort Patient unable to currently discuss about code status as very lethargic Discussed with patient's POA, who recommends the patient to be transitioned to DNI/DNR status as patient expressed has expressed to her on multiple occasions that she wouldn't want any aggressive/heroic measures Had fever, lethargy today--recheck labs, obtain blood cultures, empirically start on Zosyn, close hemodynamic monitoring Continue Neutropenic precautions Hold Opioids for excess sedation Repeat blood work pending Left lower extremity cellulitis Blood cultures : negative Negative MRSA Continue IV Rocephin>>Cefdinir--completed course Bilateral lower extremity edema Grade 2 Diastolic CHF Received 40 mg IV Lasix continue metoprolol and Aldactone Last echo was suggestive of grade 2 diastolic dysfunction Hold Lasix as Hyponatremia worsening monitor Hyponatremia Likely due to diuretics Monitor Held diuretics Sodium 129 today Constipation Continue bowel regimen Encourage to ambulate on Lactulose as well Appreciate GI Input Avoid Enemas, rectal suppositories due to thrombocytopenia Monitor electrolytes and replace as needed PAF Continue amiodarone and metoprolol Currently normal sinus rhythm Off anticoagulants in setting of pancytopenia Elevated High Sensitivity troponin Likely demand ischemia in setting of anemia, Infection CKD III Cr at baseline monitor Avoid nephrotoxic agents DVT Px: SCDs Re:Thrombocytopenia Code Status DNI/DNR as per my discussion with Patient/Patient's POA Admission and Anticipated Discharge Date Admission Date: February 11, 2022 Subjective Patient is seen and examined at bedside Reports persistent pain this morning Discussed with GI today Reports constipation Denies chest pain, dyspnea, dizziness, abdominal pain, nausea/vomiting Drowsy, shaky and has chills this afternoon- noted by RN Discussed with patient's daughter over the phone Review of Systems Review of Systems: All systems reviewed & are unremarkable except as noted in Subjective Physical Exam Physical Exam: Physical Exam: Vitals signs as noted above General Appearance:Moderately built and nourished, no apparent distress Head: normocephalic, Atraumatic Eyes: normal inspection, EOMI Neck: supple, Trachea midline Respiratory/Chest: Normal breath sounds, CTA, No accessory muscle use, R port Cardiovascular: S1, S2, +murmur Abdomen/GI:Soft, Non tender, Bowel sounds present Extremities/Musculoskeletal:normal inspection, +LE edema, left lower extremity erythema improved Neurologic/Psych:AAOX3, grossly no focal neurological deficits Skin: normal color, warm Results & Data Results & Data ([facility]) Vital Signs (Past 12 Hours) Vital Signs Temp Pulse Pulse Resp BP BP Pulse Ox 02/25/22 15:21 37.9 C H 93 H 19 150/92 H 93 02/25/22 11:09 37 C 66 18 97/68 L 97 02/25/22 10:30 36.7 C 66 18 102/48 L 95 02/25/22 10:21 36.9 C 69 16 125/48 L 95 02/25/22 09:30 36.7 C 67 16 130/55 L 02/25/22 09:00 36.9 C 70 18 130/57 L 02/25/22 08:00 63 02/25/22 07:11 36.6 C 66 17 130/62 95 Laboratory Results Short CBC 02/25/22 Range/Units 05:32 WBC 1.16 L (4.8-10.8) K/uL Hgb 9.8 L (12.0-16.0) g/dL Hct 28.5 L (37-47) % Plt Count 5 L* (130-400) K/uL BMP 02/25/22 05:32 Sodium 129 L Potassium 4.9 Chloride 93 L Carbon Dioxide 31 BUN 24 H Creatinine 0.84 Glucose 105 H Calcium 8.7
[2022-02-25 16:57] LABS: Albumin Globulin Ratio 1.2 (0.9-2); Albumin Level 3.3 gm/dl (3.4-5.0); BUN Creatinine Ratio 35.1 (10-20); Bilirubin,Total 0.7 mg/dl (0.2-1.0); Calcium 8.6 mg/dl (8.5-10.1); Est GFR (African American) 86.3 ml/min; Est GFR (Non-African American) 74.5 ml/min; Globulin 2.8 gm/dl (2.5-4.0); Potassium 4.9 mmol/L (3.5-5.1); Total Protein 6.1 gm/dl (6.0-8.3)
[2022-02-25 17:08] LABS: Hemoglobin 10.6 g/dL (12.0-16.0); Mean Corpuscular Hemoglobin 28.6 pg (25-34); Mean Corpuscular Hgb Conc 34.2 g/dL (32-36); Mean Corpuscular Volume 83.6 fL (80-100); Mean Platelet Volume 10.3 fL (7.4-10.4); Platelet Count 20 K/uL (130-400); RDW Coefficient of Variation 14.9 % (11.5-14.5); RDW Standard Deviation 45.7 fL (36.4-46.3); Red Blood Count 3.71 M/uL (4.2-5.4)
--- NOTE | 2022-02-25 17:10 | XRay Report ---
XR chest 1V portable HISTORY: Hypoxia COMPARISON: Chest 02/11/2022. FINDINGS: Slightly rotated study. No pneumothorax. No pleural effusions. The cardiac silhouette remai ns mildly enlarged. There is a mildly tortuous thoracic aorta, unchanged. Right jugular Port-A-Cath t erminates at the SVC. There is mild central pulmonary vascular congestion without overt edema. No new focal lung consolidations to suggest pneumonia. IMPRESSION: Cardiomegaly with mild central pulmonary vascular congestion without overt edema. ACT 112: Negative or not required by law. Electronically signed by: Malick Do M.D. 02/25/2022 5:09 PM
[2022-02-25] MEDS ORDERED: FUROSEMIDE INJ 20 MG/2 ML VIAL IV ONE (17:13)
[2022-02-25 17:36] LABS: Base Excess VBG 4.6 mEq/L; Oxygen Saturation VBG 68.4 %; pH VBG 7.46 (7.36-7.41)
[2022-02-25] MEDS: fentaNYL 25 MCG/HR TDSY TD SCH (18:12)
[2022-02-25] MEDS: CRESEMBA PO SCH (18:12)
[2022-02-25 18:52] LABS: RBC Morphology Unremarkable
[2022-02-25 19:03] LABS: ALC (manual) 0.13 K/uL (1.2-3.4); ANC (manual) 0.68 K/uL (1.4-6.5); Blast Cells % (manual) 10.6 %; Lymphocytes # (manual) 0.13 K/uL (1.2-3.4); Lymphocytes % (manual) 14.2 %; Neutrophils # (manual) 0.68 K/uL (1.4-6.5); Neutrophils % (manual) 75.2 %
[2022-02-25] MEDS: VENLAFAXINE HCL XR 75 MG CAPXR PO SCH (20:30)
[2022-02-25] MEDS: PIPERACILLIN/TAZOBACTAM 3.375 GM in DEXTROSE 5% 100 ML IV SCH (20:35)
[2022-02-25] MEDS: SODIUM CHLORIDE 0.9% 500 ML IV SCH (20:41)
[2022-02-26] MEDS: CHECK fentaNYL PATCH PLACEMENT SCH ×4 (00:43→23:49)
[2022-02-26] MEDS: oxyCODONE HCL IR 5 MG TAB (IMMEDIATE RELEASE) PO PRN ×5 (03:28→22:17)
[2022-02-26] MEDS: ACETAMINOPHEN 325 MG TAB PO PRN ×2 (05:44→19:47)
[2022-02-26] MEDS: LEVOTHYROXINE SODIUM 125 MCG TABLET PO SCH (05:45)
[2022-02-26] MEDS: PIPERACILLIN/TAZOBACTAM 3.375 GM in DEXTROSE 5% 100 ML IV SCH ×3 (06:03→21:09)
[2022-02-26 06:23] LABS: Hematocrit (blood only) 28.1 % (37-47); Hemoglobin 9.8 g/dL (12.0-16.0); Mean Corpuscular Hemoglobin 29.2 pg (25-34); Mean Corpuscular Hgb Conc 34.9 g/dL (32-36); Mean Corpuscular Volume 83.6 fL (80-100); Mean Platelet Volume 9.7 fL (7.4-10.4); Platelet Count 16 K/uL (130-400); RDW Coefficient of Variation 14.7 % (11.5-14.5); RDW Standard Deviation 45.3 fL (36.4-46.3); Red Blood Count 3.36 M/uL (4.2-5.4); White Blood Count 1.45 K/uL (4.8-10.8)
[2022-02-26 06:33] LABS: RBC Morphology Unremarkable
[2022-02-26 06:38] LABS: BUN Creatinine Ratio 31.8 (10-20); Calcium 8.6 mg/dl (8.5-10.1); Creatinine Clr Calc Pharmacy 61.1 ml/min; Est GFR (African American) 76.6 ml/min; Est GFR (Non-African American) 66.1 ml/min; Potassium 4.4 mmol/L (3.5-5.1)
[2022-02-26 06:39] LABS: ANC (manual) 0.73 K/uL (1.4-6.5); Blast # (manual) 0.06 K/uL (0-0); Blast Cells % (manual) 4.4 %; Eosinophils # (manual) 0.03 K/uL (0-0.5); Eosinophils % (manual) 1.8 %; Lymphocytes % (manual) 41.2 %; Monocytes # (manual) 0.04 K/uL (0.11-0.59); Monocytes % (manual) 2.6 %; Neutrophils # (manual) 0.73 K/uL (1.4-6.5)
[2022-02-26] MEDS: SENNA 8.6 MG TAB PO SCH (08:50)
[2022-02-26] MEDS: allopurinoL 300 MG TAB PO SCH (08:51)
[2022-02-26] MEDS: POLYETHYLENE (MIRALAX) 17 GM PACK PO SCH ×3 (08:51→21:09)
[2022-02-26] MEDS: PANTOprazole 40 MG TAB PO SCH (08:51)
[2022-02-26] MEDS: GABAPENTIN 300 MG CAP PO SCH ×4 (08:51→21:08)
[2022-02-26] MEDS: ACYCLOVIR 400 MG TAB PO SCH ×2 (08:51→21:08)
[2022-02-26] MEDS: LACTULOSE SYRUP 20 GM/30 ML UDC PO SCH (08:51)
[2022-02-26] MEDS: METOPROLOL SUCC 25MG EXT REL TAB PO SCH (08:52)
[2022-02-26] MEDS: AMIODARONE 200 MG TAB PO SCH (08:52)
[2022-02-26] MEDS: ROSUVASTATIN CALCIUM 20 MG TAB PO SCH (08:53)
[2022-02-26] MEDS: BENZOCAINE 20% (ORAJEL) 11.9 GM TUBE MT SCH ×3 (08:53→21:09)
[2022-02-26] MEDS: FLUTICASONE PROPIONATE NA SPR 16 GM BTL SCH (08:55)
[2022-02-26] MEDS: VENETOCLAX PO SCH (08:55)
[2022-02-26] MEDS: fentaNYL 25 MCG/HR TDSY TD SCH (11:18)
--- NOTE | 2022-02-26 16:15 | Hospitalist Progress Note ---
Date of Service February 26, 2022 Assessment & Plan (1) Cellulitis of left leg: (2) Symptomatic anemia: (3) AML (acute myeloblastic leukemia): (4) HTN (hypertension): (5) Hypothyroidism: (6) Pancytopenia due to antineoplastic chemotherapy: (7) Follicular lymphoma: (8) Immunosuppressed status: Plan: Patient is a 76 yr female with H/O AML, recurrent follicular lymphoma, history of mucoepidermoid carcinoma, pancytopenia, PAF, HTN, HLD, CKD stage III, thoracic aortic aneurysm, history of DVT status post IVCF, depression with anxiety who presents to ED secondary to bone pain x2 to 3 weeks. Pt does not meet SIRS/SEPSIS criteria on admission. Symptomatic anemia Pancytopenia in setting of AML, hx of Recurrent Follicular Lymphoma, recent bone marrow bx showed 18% myeloblasts Thrombocytopenia S/P 5 units PRBCs S/P 7 units Platelets Monitor CBC Peripheral smear: (+) blasts DIC work up: LDH normal Fibrinogen 566, Fibrin products <10, D dimer 1640, Retic Count <0.02 Follows with [facility] oncology as outpatient Discussed with Oncology on 02/23/22 CT abd showed no signs of retroperitoneal bleed Plan to transfuse platelets if less than 10K or any acute bleeding Currently on venetoclax daily, last chemo 01/29 Continue with acyclovir and Cresemba Overall picture suggesting progression of AML, Poor Prognosis Needs follow up with Oncology upon discharge Continue pain control No acute bleeding issues Hemoglobin 9.8, platelet 16K today Palliative care consulted to address goals of care--pending consult Clinically deteriorating 02/25/22 Discussed with patient and patient's POA- Gwen Whatley (Daughter):Goal is comfort Patient's mental Patient expressed (02/26/22) that she would prefer to transitioned to comfort measures eventually but plans to discuss with family before making her decision Family planning to travel from [place] this weakened. She prefers to remain DNI/DNR for now and continue current management Acute Metabolic Encephalopathy Febrile Neutropenia Repeat Blood Cx pending Empirically on Zosyn Mental status back to baseline On Neutropenic precautions Left lower extremity cellulitis Blood cultures : negative Negative MRSA Continue IV Rocephin>>Cefdinir--completed course Bilateral lower extremity edema Grade II Diastolic CHF Received 40 mg IV Lasix continue metoprolol and Aldactone Last echo was suggestive of grade 2 diastolic dysfunction Hold Lasix as Hyponatremia worsening monitor Hyponatremia Likely due to diuretics Monitor Resume diuretics as able Sodium 130 today Constipation Continue bowel regimen Encourage to ambulate on Lactulose as well Appreciate GI Input Avoid Enemas, rectal suppositories due to thrombocytopenia Monitor electrolytes and replace as needed Titrate bowel regimen as needed PAF Continue amiodarone and metoprolol Currently normal sinus rhythm Off anticoagulants in setting of pancytopenia Elevated High Sensitivity troponin Likely demand ischemia in setting of anemia, Infection CKD III Cr at baseline monitor Avoid nephrotoxic agents DVT Px: SCDs Re:Thrombocytopenia Code Status DNI/DNR as per my discussion with Patient/Patient's POA Admission and Anticipated Discharge Date Admission Date: February 11, 2022 Subjective Patient is seen and examined at bedside States feeling better today Had large BM today per RN Reports persistent bone pain Denies chest pain, dyspnea, dizziness, abdominal pain, nausea/vomiting Review of Systems Review of Systems: All systems reviewed & are unremarkable except as noted in Subjective Physical Exam Physical Exam: Physical Exam: Vitals signs as noted above General Appearance:Moderately built and nourished, no apparent distress Head: normocephalic, Atraumatic Eyes: normal inspection, EOMI Neck: supple, Trachea midline Respiratory/Chest: Normal breath sounds, CTA, No accessory muscle use, R port Cardiovascular: S1, S2, +murmur Abdomen/GI:Soft, Non tender, Bowel sounds present Extremities/Musculoskeletal:normal inspection, +LE edema, left LE venous stasis changes Neurologic/Psych:AAOX3, grossly no focal neurological deficits Skin: normal color, warm Results & Data Results & Data ([facility]) Vital Signs (Past 12 Hours) Vital Signs Temp Pulse Pulse Resp BP Pulse Ox 02/26/22 15:47 67 02/26/22 15:26 36.8 C 71 17 120/62 97 02/26/22 12:29 36.7 C 75 18 137/66 97 02/26/22 08:00 70 02/26/22 07:46 37.0 C 70 18 125/63 95 Laboratory Results Short CBC 02/25/22 02/26/22 Range/Units 16:05 05:27 WBC 0.90 L* 1.45 L (4.8-10.8) K/uL Hgb 10.6 L 9.8 L (12.0-16.0) g/dL Hct 31.0 L 28.1 L (37-47) % Plt Count 20 L* D 16 L* (130-400) K/uL BMP 02/25/22 02/26/22 16:05 05:27 Sodium 128 L 130 L Potassium 4.9 4.4 Chloride 92 L 93 L Carbon Dioxide 27 30 BUN 27 H 27 H Creatinine 0.77 0.85 Glucose 143 H 115 H Calcium 8.6 8.6 Liver Function 02/25/22 Range/Units 16:05 Total Bilirubin 0.7 (0.2-1.0) mg/dl AST 22 (13-39) U/L ALT 23 (7-52) U/L Alkaline Phosphatase 207 H (34-104) U/L Albumin 3.3 L (3.4-5.0) gm/dl
[2022-02-26] MEDS: CRESEMBA PO SCH (16:51)
[2022-02-26] MEDS: VENLAFAXINE HCL XR 75 MG CAPXR PO SCH (21:08)
[2022-02-26] MEDS: SODIUM CHLORIDE 0.9% 500 ML IV SCH (22:17)
[2022-02-27] MEDS: ACETAMINOPHEN 325 MG TAB PO PRN ×5 (03:22→23:28)
[2022-02-27] MEDS: PIPERACILLIN/TAZOBACTAM 3.375 GM in DEXTROSE 5% 100 ML IV SCH ×2 (05:52→13:07)
[2022-02-27] MEDS: LEVOTHYROXINE SODIUM 125 MCG TABLET PO SCH (05:52)
[2022-02-27 06:23] LABS: BUN Creatinine Ratio 27.1 (10-20); Calcium 8.4 mg/dl (8.5-10.1); Creatinine Clr Calc Pharmacy 61.6 ml/min; Est GFR (African American) 76.6 ml/min; Est GFR (Non-African American) 66.1 ml/min; Potassium 4.3 mmol/L (3.5-5.1)
[2022-02-27 06:38] LABS: Hematocrit (blood only) 26.8 % (37-47); Hemoglobin 8.9 g/dL (12.0-16.0); Mean Corpuscular Hemoglobin 28.6 pg (25-34); Mean Corpuscular Hgb Conc 33.2 g/dL (32-36); Mean Corpuscular Volume 86.2 fL (80-100); Mean Platelet Volume 9.3 fL (7.4-10.4); Platelet Count 10 K/uL (130-400); RDW Coefficient of Variation 14.7 % (11.5-14.5); RDW Standard Deviation 46.7 fL (36.4-46.3); Red Blood Count 3.11 M/uL (4.2-5.4); White Blood Count 0.76 K/uL (4.8-10.8)
[2022-02-27 06:40] LABS: Giant Platelets 1+
[2022-02-27 06:41] LABS: ALC (manual) 0.28 K/uL (1.2-3.4); ANC (manual) 0.41 K/uL (1.4-6.5); Blast # (manual) 0.04 K/uL (0-0); Blast Cells % (manual) 5.3 %; Lymphocytes # (manual) 0.28 K/uL (1.2-3.4); Lymphocytes % (manual) 36.8 %; Monocytes # (manual) 0.02 K/uL (0.11-0.59); Monocytes % (manual) 2.6 %; Myelocytes # (manual) 0.01 K/uL (0-0); Myelocytes % (manual) 0.9 %; Neutrophils # (manual) 0.41 K/uL (1.4-6.5); Neutrophils % (manual) 54.4 %
[2022-02-27] MEDS: ACYCLOVIR 400 MG TAB PO SCH ×2 (07:44→21:20)
[2022-02-27] MEDS: GABAPENTIN 300 MG CAP PO SCH ×4 (07:44→21:21)
[2022-02-27] MEDS: METOPROLOL SUCC 25MG EXT REL TAB PO SCH (07:44)
[2022-02-27] MEDS: AMIODARONE 200 MG TAB PO SCH (07:45)
[2022-02-27] MEDS: SENNA 8.6 MG TAB PO SCH (07:45)
[2022-02-27] MEDS: allopurinoL 300 MG TAB PO SCH (07:45)
[2022-02-27] MEDS: PANTOprazole 40 MG TAB PO SCH (07:45)
[2022-02-27] MEDS: BENZOCAINE 20% (ORAJEL) 11.9 GM TUBE MT SCH ×3 (07:46→21:17)
[2022-02-27] MEDS: ROSUVASTATIN CALCIUM 20 MG TAB PO SCH (07:46)
[2022-02-27] MEDS: POLYETHYLENE (MIRALAX) 17 GM PACK PO SCH ×2 (07:46→21:18)
[2022-02-27] MEDS: FLUTICASONE PROPIONATE NA SPR 16 GM BTL SCH (07:47)
[2022-02-27] MEDS: VENETOCLAX PO SCH (07:47)
[2022-02-27] MEDS: CHECK fentaNYL PATCH PLACEMENT SCH ×2 (07:50→15:53)
[2022-02-27] MEDS: oxyCODONE HCL IR 5 MG TAB (IMMEDIATE RELEASE) PO PRN ×3 (08:49→21:19)
--- NOTE | 2022-02-27 09:57 | Hospitalist Progress Note ---
Date of Service February 27, 2022 Assessment & Plan (1) Cellulitis of left leg: (2) Symptomatic anemia: (3) AML (acute myeloblastic leukemia): (4) HTN (hypertension): (5) Hypothyroidism: (6) Pancytopenia due to antineoplastic chemotherapy: (7) Follicular lymphoma: (8) Immunosuppressed status: Plan: 76 yr female with H/O AML, recurrent follicular lymphoma, history of mucoepidermoid carcinoma, pancytopenia, PAF, HTN, HLD, CKD stage III, thoracic aortic aneurysm, history of DVT status post IVCF, depression with anxiety who presents to ED secondary to bone pain x2 to 3 weeks. Pt did not meet SIRS/SEPSIS criteria on admission. Symptomatic anemia Pancytopenia in setting of AML, Hx of Recurrent Follicular Lymphoma, recent bone marrow bx showed 18% myeloblasts Thrombocytopenia S/P 6 units PRBCs S/P 7 units Platelets Peripheral smear: (+) blasts DIC work up: LDH normal Fibrinogen 566, Fibrin products <10, D dimer 1640, Retic Count <0.02 Follows with [facility] oncology as outpatient Dr Wilkinson discussed pt with Oncology on 02/23/22 CT abd showed no signs of retroperitoneal bleed Plan to transfuse platelets if less than 10K or any acute bleeding Currently on venetoclax daily, last chemo 01/29 Continue with acyclovir and Cresemba Overall picture suggesting progression of AML, Poor Prognosis Continue pain control No acute bleeding issues Today, hemoglobin is 8.9, platelet is 10,000 Ongoing goals of care. Discussed with patient today. She reinforced that her CODE STATUS is DNR. She plans to have conversation with family daughter coming to visit over the weekend prior to determining next course of action. She stated that she would likely proceed with comfort measures afterwards. She wants to continue active management for now until then. Acute Metabolic Encephalopathy Febrile Neutropenia Last fever was on 02/25/2022 with a peak of 39.4. Blood culture collected that day's is negative 24 hours. Empirically on Zosyn. If negative tomorrow, will stop Zosyn. Mental status back to baseline On Neutropenic precautions Left lower extremity cellulitis Was reported to have left lower extremity cellulitis on presentation. Blood cultures : negative Negative MRSA Completed antibiotics [IV Rocephin>>Cefdinir] Bilateral lower extremity edema Grade II Diastolic CHF Received 40 mg IV Lasix Last echo was suggestive of grade 2 diastolic dysfunction Diuretics held due to worsening Hyponatremia Hyponatremia Likely due to diuretics vs hypervolemia Monitor Sodium 130 today If stable tomorrow, resume home aldactone Constipation Continue bowel regimen Encourage to ambulate On Lactulose as well Avoid Enemas, rectal suppositories if possible due to thrombocytopenia Monitor electrolytes and replace as needed Titrate bowel regimen as needed PAF Continue amiodarone and metoprolol Currently normal sinus rhythm Not on anticoagulants in setting of pancytopenia Elevated High Sensitivity troponin Likely demand ischemia in setting of anemia, Infection CKD III Cr at baseline Avoid nephrotoxic agents DVT Px: SCDs Re:Thrombocytopenia Code Status DNI/DNR as per my discussion with Patient Admission and Anticipated Discharge Date Admission Date: February 11, 2022 Subjective Patient seen and examined. Reports feeling better today. Had another large bowel movement today this morning. Reports persistent pain in the bones of the legs and back. Denies any fevers, chills, nausea, vomiting, abdominal pain Denies chest pain, cough, shortness of breath at rest, sore throat Denies dysuria, frequency or urgency Physical Exam Constitutional: + well hydrated; no acute distress Eyes: PERRL, mild pallor ENMT: external ear and nose normal, oropharynx normal Respiratory: normal respiratory effort, lungs clear to auscultation Cardiovascular: Rate/Rhythm: regular rate and regular rhythm S1-S2 Gastrointestinal (Abdomen): normal bowel sounds, soft, nontender, no hepatosplenomegaly Musculoskeletal: Pedal edema, slightly more on the left with stasis changes on the left leg Neurologic: PERRL, EOMI, accommodation nl, no face palsy, no dysarthria Psychiatric: A+Ox3, euthymic affect Results & Data Results & Data ([facility]) Vital Signs (Past 12 Hours) Vital Signs Temp Pulse Pulse Resp BP BP Pulse Ox 02/27/22 07:37 68 02/27/22 06:59 36.6 C 74 14 130/64 94 02/27/22 02:58 37.1 C 68 16 126/53 L 92 02/26/22 23:51 36.8 C 67 16 97/68 L 93 02/26/22 22:55 36.8 C 69 16 113/60 93 02/26/22 22:30 73 Laboratory Results Abnormal lab results 05/11/22 05/11/22 Range/Units 05:39 05:39 WBC 0.76 L* (4.8-10.8) K/uL RBC 3.11 L (4.2-5.4) M/uL Hgb 8.9 L (12.0-16.0) g/dL Hct 26.8 L (37-47) % RDW Std Deviation 46.7 H (36.4-46.3) fL RDW Coeff of Rosamaria 14.7 H (11.5-14.5) % Plt Count 10 L* (130-400) K/uL Neutrophils # (Manual) 0.41 L (1.4-6.5) K/uL Total Absolute Neuts 0.41 L* (1.4-6.5) K/uL Lymphocytes # (Manual) 0.28 L (1.2-3.4) K/uL Total Abs Lymphocytes 0.28 L (1.2-3.4) K/uL Monocytes # (Manual) 0.02 L (0.11-0.59) K/uL Myelocytes # (Manual) 0.01 H (0-0) K/uL Blast Cells # (Man) 0.04 H (0-0) K/uL Sodium 130 L (136-145) mmol/L Chloride 94 L (98-107) mmol/L BUN/Creatinine Ratio 27.1 H (10-20) Glucose 121 H (70-99(Fasting)) mg/dl Calcium 8.4 L (8.5-10.1) mg/dl
--- NOTE | 2022-02-27 10:00 | XRay Report ---
KUB HISTORY: Acute generalized abdominal pain with constipation constipation COMPARISON: KUB 02/25/2022 FINDINGS: Cholecystectomy clips. IVC filter is noted at the level of T12-L1. Moderate to extensive fe virgie retention is not simply changed from the prior study. The renal shadows are obscured by bowel gas . No renal calculi. No ureteral calculi. No pneumoperitoneum or pneumatosis. No fracture. IMPRESSION: 1. Nonobstructive bowel gas pattern. 2. Moderate to extensive fecal retention. ACT 112: Negative or not required by law. The above report was generated using voice recognition software. It may contain grammatical, syntax o r spelling errors. Electronically signed by: Stephen Rebolledo M.D. 02/27/2022 9:58 AM
[2022-02-27] MEDS: CRESEMBA PO SCH (16:37)
[2022-02-27] MEDS: VENLAFAXINE HCL XR 75 MG CAPXR PO SCH (21:21)
[2022-02-28] MEDS: CHECK fentaNYL PATCH PLACEMENT SCH ×4 (00:55→23:52)
[2022-02-28] MEDS: oxyCODONE HCL IR 5 MG TAB (IMMEDIATE RELEASE) PO PRN ×5 (03:16→21:53)
[2022-02-28] MEDS: ACETAMINOPHEN 325 MG TAB PO PRN ×2 (05:54→20:06)
[2022-02-28] MEDS: LEVOTHYROXINE SODIUM 125 MCG TABLET PO SCH (05:55)
[2022-02-28 06:25] LABS: BUN Creatinine Ratio 29.6 (10-20); Calcium 8.5 mg/dl (8.5-10.1); Creatinine Clr Calc Pharmacy 73.7 ml/min; Est GFR (African American) 95.2 ml/min; Est GFR (Non-African American) 82.2 ml/min; Potassium 4.4 mmol/L (3.5-5.1)
[2022-02-28 06:38] LABS: Hemoglobin 9.2 g/dL (12.0-16.0); Mean Corpuscular Hemoglobin 28.8 pg (25-34); Mean Corpuscular Hgb Conc 34.1 g/dL (32-36); Mean Corpuscular Volume 84.4 fL (80-100); Platelet Count 5 K/uL (130-400); Platelet Estimate SIGNIFIC DECREASED (Normal); RDW Coefficient of Variation 14.8 % (11.5-14.5); RDW Standard Deviation 46.2 fL (36.4-46.3); White Blood Count 0.92 K/uL (4.8-10.8)
[2022-02-28] MEDS: SODIUM CHLORIDE 0.9% 500 ML IV SCH ×2 (08:13→22:47)
[2022-02-28] MEDS: ACYCLOVIR 400 MG TAB PO SCH ×2 (08:14→20:07)
[2022-02-28] MEDS: GABAPENTIN 300 MG CAP PO SCH ×4 (08:14→20:07)
[2022-02-28] MEDS: allopurinoL 300 MG TAB PO SCH (08:15)
[2022-02-28] MEDS: PANTOprazole 40 MG TAB PO SCH (08:15)
[2022-02-28] MEDS: ROSUVASTATIN CALCIUM 20 MG TAB PO SCH (08:15)
[2022-02-28] MEDS: SENNA 8.6 MG TAB PO SCH (08:15)
[2022-02-28] MEDS: FLUTICASONE PROPIONATE NA SPR 16 GM BTL SCH (08:15)
[2022-02-28] MEDS: METOPROLOL SUCC 25MG EXT REL TAB PO SCH (08:15)
[2022-02-28] MEDS: AMIODARONE 200 MG TAB PO SCH (08:15)
[2022-02-28] MEDS: POLYETHYLENE (MIRALAX) 17 GM PACK PO SCH ×2 (08:16→20:08)
[2022-02-28] MEDS: BENZOCAINE 20% (ORAJEL) 11.9 GM TUBE MT SCH ×3 (08:16→20:07)
[2022-02-28] MEDS: DICLOFENAC SOD 1% GEL 100 GM TUBE EXT PRN (08:16)
[2022-02-28] MEDS: VENETOCLAX PO SCH (08:17)
--- NOTE | 2022-02-28 10:33 | Hospitalist Progress Note ---
Date of Service February 28, 2022 Assessment & Plan (1) Cellulitis of left leg: (2) Symptomatic anemia: (3) AML (acute myeloblastic leukemia): (4) HTN (hypertension): (5) Hypothyroidism: (6) Pancytopenia due to antineoplastic chemotherapy: (7) Follicular lymphoma: (8) Immunosuppressed status: Plan: 76 yr female with H/O AML, recurrent follicular lymphoma, history of mucoepidermoid carcinoma, pancytopenia, PAF, HTN, HLD, CKD stage III, thoracic aortic aneurysm, history of DVT status post IVCF, depression with anxiety who presents to ED secondary to bone pain x2 to 3 weeks. Pt did not meet SIRS/SEPSIS criteria on admission. Symptomatic anemia Pancytopenia in setting of AML, Hx of Recurrent Follicular Lymphoma, recent bone marrow bx showed 18% myeloblasts Thrombocytopenia S/P 6 units PRBCs S/P 7 units Platelets Peripheral smear: (+) blasts DIC work up: LDH normal Fibrinogen 566, Fibrin products <10, D dimer 1640, Retic Count <0.02 Follows with [facility] oncology as outpatient Dr Wilkinson discussed pt with Oncology on 02/23/22 CT abd showed no signs of retroperitoneal bleed Platelet count is 5K. Currently getting 1 Platelet Currently on venetoclax daily, last chemo 01/29 Continue with acyclovir and Cresemba Overall picture suggesting progression of AML, Poor Prognosis Continue pain control. Oxycodone increased to q4h prn No acute bleeding issues Today, hemoglobin is 9.2. WBC 0.92 Had further GOC conversation today. Patient stated she has been talking to her family. She will like to transition to comfort care only after her family visits this weekend. She will want to continue current management until then. Will monitor how patient is doing afterwards to determine disposition Acute Metabolic Encephalopathy Febrile Neutropenia Last fever was on 02/25/2022 with a peak of 39.4. Blood culture collected that day's is negative 48 hours. Stop empirical zosyn. Mental status back to baseline On Neutropenic precautions Left lower extremity cellulitis Was reported to have left lower extremity cellulitis on presentation. Blood cultures : negative Negative MRSA Completed antibiotics [IV Rocephin>>Cefdinir] Bilateral lower extremity edema Grade II Diastolic CHF Received 40 mg IV Lasix Last echo was suggestive of grade 2 diastolic dysfunction Diuretics held due to worsening Hyponatremia Hyponatremia Likely due to diuretics vs hypervolemia Monitor Sodium 130 today If stable tomorrow, resume home aldactone Constipation Continue bowel regimen Encourage to ambulate On Lactulose as well Avoid Enemas, rectal suppositories if possible due to thrombocytopenia Monitor electrolytes and replace as needed Titrate bowel regimen as needed PAF Continue amiodarone and metoprolol Currently normal sinus rhythm Not on anticoagulants in setting of pancytopenia Elevated High Sensitivity troponin Likely demand ischemia in setting of anemia, Infection CKD III Cr at baseline Avoid nephrotoxic agents DVT Px: SCDs Re:Thrombocytopenia Code Status DNI/DNR as per my discussion with Patient Called Patient's daughter and updated her per patient's request Admission and Anticipated Discharge Date Admission Date: February 11, 2022 Subjective Patient seen and examined. Reports persistent pain in the bones of the legs and back is not very well controlled. Denies any fevers, chills, vomiting, abdominal pain Reports occasional nausea with meds Denies chest pain, cough, shortness of breath at rest, sore throat Denies dysuria, frequency or urgency Physical Exam Constitutional: + well hydrated; no acute distress ENMT: external ear and nose normal, oropharynx normal Respiratory: normal respiratory effort, lungs clear to auscultation Cardiovascular: Rate/Rhythm: regular rate and regular rhythm S1 S2 Gastrointestinal (Abdomen): normal bowel sounds, soft, nontender, no hepatosplenomegaly Musculoskeletal: +pedal edema Neurologic: PERRL, EOMI, accommodation nl, no face palsy, no dysarthria Psychiatric: A+Ox3, euthymic affect Results & Data Results & Data ([facility]) Vital Signs (Past 12 Hours) Vital Signs Temp Pulse Pulse Resp BP BP Pulse Ox 02/28/22 09:41 37.0 C 66 14 122/76 99 02/28/22 09:21 37.2 C 80 16 122/67 100 02/28/22 08:00 69 02/28/22 07:24 36.7 C 70 20 112/72 96 02/28/22 03:07 36.7 C 70 19 118/52 L 94 02/28/22 02:50 67 02/27/22 23:04 36.9 C 71 20 118/55 L 97 Laboratory Results Abnormal lab results 02/28/22 02/28/22 Range/Units 05:24 05:24 WBC 0.92 L* (4.8-10.8) K/uL RBC 3.20 L (4.2-5.4) M/uL Hgb 9.2 L (12.0-16.0) g/dL Hct 27.0 L (37-47) % RDW Coeff of Rosamaria 14.8 H (11.5-14.5) % Plt Count 5 L* (130-400) K/uL Sodium 130 L (136-145) mmol/L Chloride 95 L (98-107) mmol/L BUN/Creatinine Ratio 29.6 H (10-20) Glucose 112 H (70-99(Fasting)) mg/dl
[2022-02-28] MEDS: fentaNYL 25 MCG/HR TDSY TD SCH (16:53)
[2022-02-28] MEDS: ONDANSETRON INJ 2 MG/ML 2 ML VIAL IV PRN (16:53)
[2022-02-28] MEDS: CRESEMBA PO SCH (17:05)
[2022-02-28] MEDS: VENLAFAXINE HCL XR 75 MG CAPXR PO SCH (20:07)
[2022-03-01] MEDS: oxyCODONE HCL IR 5 MG TAB (IMMEDIATE RELEASE) PO PRN ×4 (03:47→16:33)
[2022-03-01] MEDS: ONDANSETRON INJ 2 MG/ML 2 ML VIAL IV PRN ×2 (05:06→11:18)
[2022-03-01] MEDS: LEVOTHYROXINE SODIUM 125 MCG TABLET PO SCH (06:31)
[2022-03-01 07:43] LABS: BUN Creatinine Ratio 21.7 (10-20); Calcium 8.5 mg/dl (8.5-10.1); Creatinine Clr Calc Pharmacy 62.2 ml/min; Est GFR (African American) 78.8 ml/min; Potassium 4.3 mmol/L (3.5-5.1)
[2022-03-01 08:04] LABS: Hematocrit (blood only) 25.8 % (37-47); Hemoglobin 8.8 g/dL (12.0-16.0); Mean Corpuscular Hemoglobin 29.1 pg (25-34); Mean Corpuscular Hgb Conc 34.1 g/dL (32-36); Mean Corpuscular Volume 85.4 fL (80-100); Platelet Count 8 K/uL (130-400); RDW Standard Deviation 47.3 fL (36.4-46.3); Red Blood Count 3.02 M/uL (4.2-5.4); White Blood Count 1.13 K/uL (4.8-10.8)
[2022-03-01 08:05] LABS: Platelet Estimate SIGNIFIC DECREASED (Normal)
[2022-03-01] MEDS: ACYCLOVIR 400 MG TAB PO SCH ×2 (08:24→19:43)
[2022-03-01] MEDS: GABAPENTIN 300 MG CAP PO SCH ×4 (08:24→19:39)
[2022-03-01] MEDS: AMIODARONE 200 MG TAB PO SCH (08:24)
[2022-03-01] MEDS: BENZOCAINE 20% (ORAJEL) 11.9 GM TUBE MT SCH ×3 (08:25→19:40)
[2022-03-01] MEDS: allopurinoL 300 MG TAB PO SCH (08:25)
[2022-03-01] MEDS: ROSUVASTATIN CALCIUM 20 MG TAB PO SCH (08:26)
[2022-03-01] MEDS: METOPROLOL SUCC 25MG EXT REL TAB PO SCH (08:26)
[2022-03-01] MEDS: SENNA 8.6 MG TAB PO SCH (08:26)
[2022-03-01] MEDS: PANTOprazole 40 MG TAB PO SCH (08:26)
[2022-03-01] MEDS: FLUTICASONE PROPIONATE NA SPR 16 GM BTL SCH (08:26)
[2022-03-01] MEDS: CHECK fentaNYL PATCH PLACEMENT SCH ×2 (08:27→15:59)
[2022-03-01] MEDS: VENETOCLAX PO SCH (08:27)
[2022-03-01] MEDS: POLYETHYLENE (MIRALAX) 17 GM PACK PO SCH ×2 (08:27→19:40)
--- NOTE | 2022-03-01 12:54 | Hospitalist Progress Note ---
Date of Service March 01, 2022 Assessment & Plan (1) Cellulitis of left leg: (2) Symptomatic anemia: (3) AML (acute myeloblastic leukemia): (4) HTN (hypertension): (5) Hypothyroidism: (6) Pancytopenia due to antineoplastic chemotherapy: (7) Follicular lymphoma: (8) Immunosuppressed status: Plan: 76 yr female with H/O AML, recurrent follicular lymphoma, history of mucoepidermoid carcinoma, pancytopenia, PAF, HTN, HLD, CKD stage III, thoracic aortic aneurysm, history of DVT status post IVCF, depression with anxiety who presents to ED secondary to bone pain x2 to 3 weeks. Pt did not meet SIRS/SEPSIS criteria on admission. Symptomatic anemia Pancytopenia in setting of AML, Hx of Recurrent Follicular Lymphoma, recent bone marrow bx showed 18% myeloblasts Thrombocytopenia S/P 6 units PRBCs S/P 8 units Platelets Peripheral smear: (+) blasts DIC work up: LDH normal Fibrinogen 566, Fibrin products <10, D dimer 1640, Retic Count <0.02 Follows with [facility] oncology as outpatient Dr Wilkinson discussed pt with Oncology on 02/23/22 CT abd showed no signs of retroperitoneal bleed Platelet count is 8K after 1 bag yesterday. Will give another platelet today Had been on venetoclax daily, last chemo 01/29 Also on acyclovir and Cresemba Overall picture suggesting progression of AML, Poor Prognosis Continue pain control. No acute bleeding issues Today, hemoglobin is 8.8. WBC 1.13 Patient's family are coming tomorrow. She will like to continue active treatment till then She stated she will like to transition to comfort care on friday. Acute Metabolic Encephalopathy - resolved Febrile Neutropenia Last fever was on 02/25/2022 with a peak of 39.4. Blood culture collected that day's is negative 48 hours. Off antibiotics On Neutropenic precautions Left lower extremity cellulitis Was reported to have left lower extremity cellulitis on presentation. Blood cultures : negative Negative MRSA Completed antibiotics [IV Rocephin>>Cefdinir] Bilateral lower extremity edema Grade II Diastolic CHF Received 40 mg IV Lasix Last echo was suggestive of grade 2 diastolic dysfunction Diuretics held due to worsening Hyponatremia Hyponatremia Likely due to diuretics vs hypervolemia Monitor Sodium 130 today If stable tomorrow, resume home aldactone Constipation Continue bowel regimen Encourage to ambulate On Lactulose as well Avoid Enemas, rectal suppositories if possible due to thrombocytopenia Monitor electrolytes and replace as needed Titrate bowel regimen as needed PAF Continue amiodarone and metoprolol Currently normal sinus rhythm Not on anticoagulants in setting of pancytopenia Elevated High Sensitivity troponin Likely demand ischemia in setting of anemia, Infection CKD III Cr at baseline Avoid nephrotoxic agents DVT Px: SCDs Re:Thrombocytopenia Code Status DNI/DNR as per my discussion with Patient Admission and Anticipated Discharge Date Admission Date: February 11, 2022 Subjective Patient seen and examined. Reports persistent pain in the bones of the legs and back is better controlled today Denies any fevers, chills,nausea, vomiting, abdominal pain Denies chest pain, cough, shortness of breath at rest, sore throat Denies dysuria, frequency or urgency Physical Exam Constitutional: + well hydrated; no acute distress ENMT: external ear and nose normal, oropharynx normal Respiratory: normal respiratory effort, lungs clear to auscultation Cardiovascular: Rate/Rhythm: regular rate and regular rhythm S1 S2 Gastrointestinal (Abdomen): normal bowel sounds, soft, nontender, no hepatosplenomegaly Musculoskeletal: Pedal edema Neurologic: PERRL, EOMI, accommodation nl, no face palsy, no dysarthria Psychiatric: A+Ox3, euthymic affect Results & Data Results & Data ([facility]) Vital Signs (Past 12 Hours) Vital Signs Temp Pulse Pulse Resp BP Pulse Ox 03/01/22 11:02 36.7 C 67 18 128/55 L 94 03/01/22 08:00 64 03/01/22 07:36 36.7 C 69 18 131/54 L 94 03/01/22 03:28 36.6 C 69 18 119/58 L 95 03/01/22 00:56 69 Laboratory Results Abnormal lab results 03/01/22 03/01/22 Range/Units 06:47 06:47 WBC 1.13 L (4.8-10.8) K/uL RBC 3.02 L (4.2-5.4) M/uL Hgb 8.8 L (12.0-16.0) g/dL Hct 25.8 L (37-47) % RDW Std Deviation 47.3 H (36.4-46.3) fL RDW Coeff of Rosamaria 15.0 H (11.5-14.5) % Plt Count 8 L* D (130-400) K/uL Sodium 130 L (136-145) mmol/L Chloride 95 L (98-107) mmol/L BUN/Creatinine Ratio 21.7 H (10-20) Glucose 102 H (70-99(Fasting)) mg/dl
[2022-03-01] MEDS: CRESEMBA PO SCH (16:35)
[2022-03-01] MEDS: ACETAMINOPHEN 325 MG TAB PO PRN (19:38)
[2022-03-01] MEDS: VENLAFAXINE HCL XR 75 MG CAPXR PO SCH (19:44)
[2022-03-02] MEDS: oxyCODONE HCL IR 5 MG TAB (IMMEDIATE RELEASE) PO PRN ×7 (00:26→23:57)
[2022-03-02] MEDS: SODIUM CHLORIDE 0.9% 500 ML IV SCH ×2 (00:27→23:56)
[2022-03-02] MEDS: CHECK fentaNYL PATCH PLACEMENT SCH ×4 (00:29→23:57)
[2022-03-02] MEDS: ACETAMINOPHEN 325 MG TAB PO PRN ×4 (01:05→19:23)
[2022-03-02] MEDS: LEVOTHYROXINE SODIUM 125 MCG TABLET PO SCH (06:17)
[2022-03-02 06:28] LABS: BUN Creatinine Ratio 23.3 (10-20); Calcium 8.4 mg/dl (8.5-10.1); Creatinine Clr Calc Pharmacy 60.3 ml/min; Est GFR (African American) 75.5 ml/min; Est GFR (Non-African American) 65.2 ml/min; Hemoglobin 8.3 g/dL (12.0-16.0); Mean Corpuscular Hemoglobin 28.3 pg (25-34); Mean Corpuscular Hgb Conc 33.2 g/dL (32-36); Mean Corpuscular Volume 85.3 fL (80-100); Mean Platelet Volume 8.9 fL (7.4-10.4); Platelet Count 11 K/uL (130-400); Potassium 4.2 mmol/L (3.5-5.1); RDW Coefficient of Variation 14.8 % (11.5-14.5); RDW Standard Deviation 46.6 fL (36.4-46.3); Red Blood Count 2.93 M/uL (4.2-5.4); White Blood Count 1.19 K/uL (4.8-10.8)
[2022-03-02] MEDS: GABAPENTIN 300 MG CAP PO SCH ×4 (08:26→19:59)
[2022-03-02] MEDS: ROSUVASTATIN CALCIUM 20 MG TAB PO SCH (08:27)
[2022-03-02] MEDS: allopurinoL 300 MG TAB PO SCH (08:27)
[2022-03-02] MEDS: SENNA 8.6 MG TAB PO SCH (08:27)
[2022-03-02] MEDS: PANTOprazole 40 MG TAB PO SCH (08:27)
[2022-03-02] MEDS: METOPROLOL SUCC 25MG EXT REL TAB PO SCH (08:28)
[2022-03-02] MEDS: ACYCLOVIR 400 MG TAB PO SCH ×2 (08:28→20:00)
[2022-03-02] MEDS: AMIODARONE 200 MG TAB PO SCH (08:28)
[2022-03-02] MEDS: BENZOCAINE 20% (ORAJEL) 11.9 GM TUBE MT SCH ×3 (08:29→20:02)
[2022-03-02] MEDS: FLUTICASONE PROPIONATE NA SPR 16 GM BTL SCH (08:29)
[2022-03-02] MEDS: POLYETHYLENE (MIRALAX) 17 GM PACK PO SCH ×2 (08:30→19:59)
[2022-03-02] MEDS: VENETOCLAX PO SCH (08:30)
--- NOTE | 2022-03-02 10:22 | Hospitalist Progress Note ---
Date of Service March 02, 2022 Assessment & Plan (1) Cellulitis of left leg: (2) Symptomatic anemia: (3) AML (acute myeloblastic leukemia): (4) HTN (hypertension): (5) Hypothyroidism: (6) Pancytopenia due to antineoplastic chemotherapy: (7) Follicular lymphoma: (8) Immunosuppressed status: Plan: 76 yr female with H/O AML, recurrent follicular lymphoma, history of mucoepidermoid carcinoma, pancytopenia, PAF, HTN, HLD, CKD stage III, thoracic aortic aneurysm, history of DVT status post IVCF, depression with anxiety who presents to ED secondary to bone pain x2 to 3 weeks. Pt did not meet SIRS/SEPSIS criteria on admission. Symptomatic anemia Pancytopenia in setting of AML, Hx of Recurrent Follicular Lymphoma, recent bone marrow bx showed 18% myeloblasts Thrombocytopenia S/P 6 units PRBCs S/P 9 units Platelets Peripheral smear: (+) blasts DIC work up: LDH normal Fibrinogen 566, Fibrin products <10, D dimer 1640, Retic Count <0.02 Follows with [facility] oncology as outpatient Dr Wilkinson discussed pt with Oncology on 02/23/22 CT abd showed no signs of retroperitoneal bleed Platelet count is 11K today Had been on venetoclax daily, last chemo 01/29 Also on acyclovir and Cresemba Overall picture suggesting progression of AML, Poor Prognosis Continue pain control. No acute bleeding issues Today, hemoglobin is 8.3. WBC 1.19 Patient's family are coming today. She plans to transition to comfort care tomorrow. Acute Metabolic Encephalopathy - resolved Febrile Neutropenia Last fever was on 02/25/2022 with a peak of 39.4. Blood culture collected that day's is negative 48 hours. Off antibiotics On Neutropenic precautions Left lower extremity cellulitis Was reported to have left lower extremity cellulitis on presentation. Blood cultures : negative Negative MRSA Completed antibiotics [IV Rocephin>>Cefdinir] Bilateral lower extremity edema Grade II Diastolic CHF Received 40 mg IV Lasix Last echo was suggestive of grade 2 diastolic dysfunction On aldactone Hyponatremia Likely due to diuretics vs hypervolemia Monitor Sodium 129 today Constipation Continue bowel regimen Encourage to ambulate On Lactulose as well Avoid Enemas, rectal suppositories if possible due to thrombocytopenia Monitor electrolytes and replace as needed Titrate bowel regimen as needed PAF Continue amiodarone and metoprolol Currently normal sinus rhythm Not on anticoagulants in setting of pancytopenia Elevated High Sensitivity troponin Likely demand ischemia in setting of anemia, Infection CKD III Cr at baseline Avoid nephrotoxic agents DVT Px: SCDs Re:Thrombocytopenia Code Status DNI/DNR as per my discussion with Patient Admission and Anticipated Discharge Date Admission Date: February 11, 2022 Subjective Patient seen and examined. Reports in the bones of the legs and back is controlled Denies any fevers, chills,nausea, vomiting, abdominal pain Denies chest pain, cough, shortness of breath at rest, sore throat Denies dysuria, frequency or urgency Physical Exam Constitutional: + well hydrated; no acute distress ENMT: external ear and nose normal, oropharynx normal Respiratory: normal respiratory effort, lungs clear to auscultation Cardiovascular: Rate/Rhythm: regular rate and regular rhythm S1 S2 Gastrointestinal (Abdomen): normal bowel sounds, soft, nontender, no hepatosplenomegaly Musculoskeletal: Pedal edema Neurologic: PERRL, EOMI, accommodation nl, no face palsy, no dysarthria Psychiatric: A+Ox3, euthymic affect Results & Data Results & Data ([facility]) Vital Signs (Past 12 Hours) Vital Signs Temp Pulse Pulse Pulse Resp BP Pulse Ox 03/02/22 07:52 69 03/02/22 07:31 36.7 C 67 19 111/50 L 96 03/02/22 04:00 36.7 C 72 22 119/56 L 96 03/02/22 01:22 36.9 C 70 16 115/46 L 97 03/01/22 23:00 62 Laboratory Results Abnormal lab results 03/02/22 03/02/22 Range/Units 05:13 05:13 WBC 1.19 L (4.8-10.8) K/uL RBC 2.93 L (4.2-5.4) M/uL Hgb 8.3 L (12.0-16.0) g/dL Hct 25.0 L (37-47) % RDW Std Deviation 46.6 H (36.4-46.3) fL RDW Coeff of Rosamaria 14.8 H (11.5-14.5) % Plt Count 11 L* (130-400) K/uL Sodium 129 L (136-145) mmol/L Chloride 94 L (98-107) mmol/L BUN/Creatinine Ratio 23.3 H (10-20) Glucose 144 H (70-99(Fasting)) mg/dl Calcium 8.4 L (8.5-10.1) mg/dl
[2022-03-02] MEDS: SPIRONOLACTONE 12.5 MG TAB PO SCH (12:08)
[2022-03-02] MEDS: CRESEMBA PO SCH (16:04)
[2022-03-02] MEDS: VENLAFAXINE HCL XR 75 MG CAPXR PO SCH (19:59)
[2022-03-03] MEDS: oxyCODONE HCL IR 5 MG TAB (IMMEDIATE RELEASE) PO PRN ×2 (04:00→07:45)
[2022-03-03 04:15] VITALS: TEMP 98.6
[2022-03-03] MEDS: LEVOTHYROXINE SODIUM 125 MCG TABLET PO SCH (06:35)
[2022-03-03 07:24] VITALS: BP 126/60; PULSE 74; O2SAT 93
[2022-03-03] MEDS: GABAPENTIN 300 MG CAP PO SCH ×4 (07:46→21:37)
[2022-03-03] MEDS: CHECK fentaNYL PATCH PLACEMENT SCH (07:46)
[2022-03-03] MEDS: DICLOFENAC SOD 1% GEL 100 GM TUBE EXT PRN (07:55)
[2022-03-03] MEDS: ACETAMINOPHEN 325 MG TAB PO PRN (09:15)
[2022-03-03] MEDS: BENZOCAINE 20% (ORAJEL) 11.9 GM TUBE MT SCH ×3 (10:07→21:37)
[2022-03-03] MEDS: ACYCLOVIR 400 MG TAB PO SCH (10:07)
[2022-03-03] MEDS: allopurinoL 300 MG TAB PO SCH (10:07)
[2022-03-03] MEDS: AMIODARONE 200 MG TAB PO SCH (10:07)
[2022-03-03] MEDS: METOPROLOL SUCC 25MG EXT REL TAB PO SCH (10:08)
[2022-03-03] MEDS: POLYETHYLENE (MIRALAX) 17 GM PACK PO SCH (10:08)
[2022-03-03] MEDS: PANTOprazole 40 MG TAB PO SCH (10:08)
[2022-03-03] MEDS: FLUTICASONE PROPIONATE NA SPR 16 GM BTL SCH (10:08)
[2022-03-03] MEDS: VENETOCLAX PO SCH (10:09)
[2022-03-03] MEDS: SENNA 8.6 MG TAB PO SCH (10:09)
[2022-03-03] MEDS: SPIRONOLACTONE 12.5 MG TAB PO SCH (10:09)
[2022-03-03] MEDS: ROSUVASTATIN CALCIUM 20 MG TAB PO SCH (10:09)
[2022-03-03] MEDS ORDERED: ONDANSETRON 4 MG OD TAB SL PRN (10:38)
[2022-03-03] MEDS ORDERED: oxyCODONE HCL IR 5 MG TAB (IMMEDIATE RELEASE) PO PRN (10:44)
--- NOTE | 2022-03-03 10:48 | Hospitalist Progress Note ---
Date of Service March 03, 2022 Assessment & Plan (1) Cellulitis of left leg: (2) Symptomatic anemia: (3) AML (acute myeloblastic leukemia): (4) HTN (hypertension): (5) Hypothyroidism: (6) Pancytopenia due to antineoplastic chemotherapy: (7) Follicular lymphoma: (8) Immunosuppressed status: Plan: 76 yr female with H/O AML, recurrent follicular lymphoma, history of mucoepidermoid carcinoma, pancytopenia, PAF, HTN, HLD, CKD stage III, thoracic aortic aneurysm, history of DVT status post IVCF, depression with anxiety who presents to ED secondary to bone pain x2 to 3 weeks. Pt did not meet SIRS/SEPSIS criteria on admission. Symptomatic anemia Pancytopenia in setting of AML, Hx of Recurrent Follicular Lymphoma, recent bone marrow bx showed 18% myeloblasts Thrombocytopenia S/P 6 units PRBCs S/P 9 units Platelets Follows with [facility] oncology as outpatient Dr Wilkinson discussed pt with Oncology on 02/23/22 CT abd showed no signs of retroperitoneal bleed Patient's family visited yesterday Patient stated she will want to commence comfort measures Daughter was at bedside. Patient will like to discontinue all meds not directed towards comfort and pain control All meds discontinued except gabapentin which may aid with pain control Morphine 2mg po q3h prn. Will keep Oxycodone 5mg prn for breakthrough pain for now as it seems to be working well without getting patient sedated. May need iv opioids or increased dose if not controlled Acute Metabolic Encephalopathy - resolved Febrile Neutropenia Last fever was on 02/25/2022 with a peak of 39.4. Last blood culture negative Off antibiotics Left lower extremity cellulitis Was reported to have left lower extremity cellulitis on presentation. Blood cultures : negative Negative MRSA Completed antibiotics [IV Rocephin>>Cefdinir] Bilateral lower extremity edema Grade II Diastolic CHF Last echo was suggestive of grade 2 diastolic dysfunction Hyponatremia Last sodium 129 today PAF Elevated High Sensitivity troponin Likely demand ischemia in setting of anemia, Infection CKD III Comfort care measures initiated Transfer to Med/Surg Admission and Anticipated Discharge Date Admission Date: February 11, 2022 Subjective Patient seen and examined. Reports increased pain in leg and back. Stated she started having pain in upper extremities today Reports weakness Denies any fevers, chills,nausea, vomiting, abdominal pain Denies chest pain, cough, shortness of breath at rest, sore throat Denies dysuria, frequency or urgency Physical Exam Constitutional: + well hydrated; no acute distress Eyes: +Pallor ENMT: external ear and nose normal, oropharynx normal Respiratory: normal respiratory effort, lungs clear to auscultation Cardiovascular: Rate/Rhythm: regular rate and regular rhythm S1 S2 Gastrointestinal (Abdomen): normal bowel sounds, soft, nontender, no hepatosplenomegaly Musculoskeletal: Pedal edema Neurologic: PERRL, EOMI, accommodation nl, no face palsy, no dysarthria Psychiatric: A+Ox3, euthymic affect Results & Data Results & Data ([facility]) Vital Signs (Past 12 Hours) Vital Signs Temp Pulse Pulse Pulse Resp BP Pulse Ox 03/03/22 07:23 37.0 C 74 17 126/60 93 03/03/22 04:15 37.0 C 75 16 121/64 95 03/02/22 23:25 36.8 C 72 16 116/60 92 03/02/22 23:18 64
[2022-03-03] MEDS: MoRPHine SULFATE 5 MG/0.25 ML UDP PO PRN ×2 (13:09→15:48)
[2022-03-03] MEDS: ONDANSETRON INJ 2 MG/ML 2 ML VIAL IV PRN (19:43)
[2022-03-04] MEDS: oxyCODONE HCL IR 5 MG TAB (IMMEDIATE RELEASE) PO PRN ×2 (04:12→10:48)
[2022-03-04] MEDS: ONDANSETRON INJ 2 MG/ML 2 ML VIAL IV PRN ×2 (04:12→08:26)
[2022-03-04] MEDS: MoRPHine SULFATE 5 MG/0.25 ML UDP PO PRN ×3 (04:27→13:45)
[2022-03-04] MEDS ORDERED: oxyCODONE HCL IR 5 MG TAB (IMMEDIATE RELEASE) PO STA (06:44)
[2022-03-04] MEDS: SENNA 8.6 MG TAB PO SCH (09:33)
[2022-03-04] MEDS: BENZOCAINE 20% (ORAJEL) 11.9 GM TUBE MT SCH ×3 (09:33→21:25)
[2022-03-04] MEDS: GABAPENTIN 300 MG CAP PO SCH ×4 (09:33→20:22)
[2022-03-04] MEDS: ACETAMINOPHEN 325 MG TAB PO PRN (09:45)
[2022-03-04] MEDS ORDERED: oxyCODONE HCL 10 MG TABCR (OxyCONTIN) PO SCH (11:30)
[2022-03-04] MEDS: oxyCODONE HCL 10 MG TABCR (OxyCONTIN) PO SCH ×2 (11:36→23:31)
[2022-03-04] MEDS ORDERED: oxyCODONE HCL IR 5 MG TAB (IMMEDIATE RELEASE) PO PRN (12:06)
--- NOTE | 2022-03-04 13:53 | Palliative Care Consultation ---
Date of Consultation March 04, 2022 Assessment & Plan (1) Bone pain: Monitor with addition of oxycodone ER. Discussed with RN. It would be ideal to have one medication for breakthrough pain and given preference for oral medications to simulate home regimen, would use roxanol which has the benefit of faster onset. Will add range for moderate and severe pain. Oxycodone ER can be adjusted based on prn use. She has some anxiety about whether pain can be controlled with oral medication. We discussed that if she were to go home with hospice, they would be able to adjust her medications as needed and would monitor that closely. Will check with Dr. Kaufman about short term use of IV morphine as needed until her pain is controlled. (2) Generalized weakness: Rapidly progressing. She has been receiving transfusions and is likely to decline quickly. (3) Palliative care encounter: I talked with Mrs. Link and her daughter, Gwen at bedside. She expresses anxiety about uncontrolled pain and going home. We discussed pain management as above and reviewed role of hospice in detail. We discussed services provided by hospice. Gwen is prepared to stay with her mother for as long as needed and would work remotely if needed. Mrs. Link will likely be bedbound with rapid functional decline and Gwen says that she is comfortable with care but would need some teaching. We talked about how they are coping with her transition to comfort directed care. She tells me that she "has my moments" but is ready for her dying time when it comes. She feels that her "spiritual health" is well cared for and she has a lot of family support. Spending time with her family and friends is her highest priority at this time. (4) AML (acute myeloblastic leukemia): History of Present Illness Reason for Consultation: comfort care Requesting Physician: Dr. Wilkinson Attending Physician: Kimber Kaufman MD History of Present Illness 76 yo lady with history of AML, follicular lymphoma, mucoepidermoid carcinoma and pancytopenia who has had severe bone pain. After discussion with hospitalist, she and her family have decided on comfort focused approach to her care. She has stopped all noncomfort medications. She had been taking tylenol and gabapentin at home for pain but was unable to manage pain and had progressive weakness to the point of going to the kitchen with her walker and not being able to walk back to her chair. She has been on both oral morphine and oxycodone, having had approximately 30mg OME in the last 24 hours. This morning, she had severe pain in her arms and legs, which she rated 8-9/10. Pain was so severe that she was unable to lift her arm or hold her daughter's hand. Oxycodone ER 10mg BID has been added. At this time, she rates the pain as 4/10 which she considers to be a tolerable level. She has had progressive weakness. Yesterday she was able to use the bedside commode but today was unable to get out of bed. Allergies Allergy/AdvReac Type Severity Reaction Status Date / Time No Known Allergies Allergy Verified 01/22/22 09:04 Home Medications Medication Instructions Recorded Confirmed Type fluticasone propionate 50 2 spray INTRANASAL QAM 08/03/19 02/11/22 History mcg/actuation nasal spray,suspension (Flonase Allergy Relief) pantoprazole 40 mg tablet,delayed 40 mg PO QAM 08/03/19 02/11/22 History release (Protonix) venlafaxine 75 mg capsule,extended 75 mg PO HS 08/03/19 02/11/22 History release 24 hr (Effexor XR) diclofenac sodium 1 % topical gel 4 g TOPICAL QID PRN 10/21/19 02/11/22 History (Voltaren Arthritis Pain) fluticasone furoate 100 1 inh INHALATION QAM PRN 05/02/21 02/11/22 History mcg-vilanterol 25 mcg/dose inhalation powder (Breo Ellipta) acyclovir 400 mg tablet 400 mg PO BID 09/17/21 02/11/22 History allopurinol 300 mg tablet 300 mg PO DAILY 12/30/21 02/11/22 History cefpodoxime 200 mg tablet 200 mg PO Q12 12/30/21 02/11/22 History isavuconazonium sulfate 186 mg 372 mg PO DAILY 12/30/21 02/11/22 History capsule (Cresemba) levothyroxine 125 mcg tablet 125 mcg PO DAILYBB 12/30/21 02/11/22 History ondansetron HCl 8 mg tablet 8 mg PO Q8H PRN 12/30/21 02/11/22 History amiodarone 200 mg tablet 200 mg PO DAILY 01/05/22 02/11/22 History metoprolol succinate 25 mg 12.5 mg PO DAILY 01/05/22 02/11/22 History tablet,extended release 24 hr rosuvastatin 20 mg tablet 20 mg PO DAILY 01/05/22 02/11/22 History venetoclax 100 mg tablet 100 mg PO DAILY 01/05/22 02/11/22 History (Venclexta) acetaminophen 325 mg tablet 650 mg PO Q6H PRN #30 tab 01/15/22 02/11/22 Rx sennosides 8.6 mg-docusate sodium 1 tab PO QAM PRN #30 tab 01/15/22 02/11/22 Rx 50 mg tablet (Senokot-S) gabapentin 300 mg capsule 300 mg PO 5XD 01/29/22 02/11/22 History spironolactone 25 mg tablet 12.5 mg PO DAILY 01/29/22 02/11/22 History cyclobenzaprine 5 mg tablet 5 mg PO BID PRN #6 tab 02/03/22 02/11/22 Rx Patient History Medical History Acute hyponatremia Acute on chronic anemia AML (acute myeloblastic leukemia) Asthma Well controlled CKD (chronic kidney disease), stage III COPD (chronic obstructive pulmonary disease) Diverticulitis Hx Esophageal reflux Essential tremor Follicular lymphoma History of DVT (deep vein thrombosis) 2007 > in setting prolonged inactivity from hospital admission HLD (hyperlipidemia) HTN (hypertension) Hypothyroidism Pancreatitis Hx Pancytopenia Pancytopenia Post-herpetic trigeminal neuralgia Reason for gabapentin Thoracic aortic aneurysm without rupture Ascending thoracic aorta is ectatic up to 4.4 cm (Previously measured 4.1 cm in 2012. Slowly increasing in size) per 06/2020 CTA, under surveillance by Dr. Cohn Surgical History H/O parotidectomy (11/2003) H/O: hysterectomy History of bone marrow biopsy (10/2011) Jul 2021 History of cataract surgery bilat History of colonoscopy (02/16/19) History of cystoscopy (06/02/12) History of dilatation and curettage History of ERCP (06/21/08) History of esophagogastroduodenoscopy (EGD) (05/18/16) History of excision of lesion (04/02/21) Right Superficial Parotid S/P cholecystectomy S/P insertion of IVC (inferior vena caval) filter (06/26/12) 2012 > [place] Filter Placement Right Groin Dr. Srivastava at [facility] Status post excisional biopsy (07/07/17) Left Inguinal Lymph Node Dr. Anderson at [facility] Status post fine needle aspiration (04/05/21) Left External Iliac Lymph Node under [facility] Dr. Coreas at [facility] Status post fine needle aspiration (02/08/19) Right Parotid Gland Lesion Family History Grandmother (Maternal) , Passed Age 52 due to Colon Cancer No problems noted. Father , Passed Age 72 due to Lung Cancer, occupation related No problems noted. Mother , Passed Age 84 of unknown cancer No problems noted. Brother , Passed Age 70 of unknown cancer No problems noted. Brother No problems noted. Daughter CLL (chronic lymphocytic leukemia) Son No problems noted. Son No problems noted. Son No problems noted. Aunt , Passed Age 70 due to Breast Cancer No problems noted. 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 How many Children do You have: 4 Other Information That Helps Us Care for You: No Feels Safe at Home: Yes Safety Concerns: Feels Safe At This Time Childhood Exposure to Second-Hand Smoke: Yes (father smoked in home) caffeine: Yes (cola daily) during the past year weight has: remained stable Dental Care, Regularly: Yes Physical Activity Frequency: Does not Exercise Assistive Devices: Cane Review of Systems Review of Systems: [place] Symptom Assessment Scale Pain 3/3 at worst, 2/3 currently Dyspnea 0/3 Fatigue 2/3 Nausea 0/3 Anorexia 2/3 Drowsiness 0/3 Palliative Performance Score 30% Physical Exam Constitutional: + ill appearing; no acute distress ENMT: Mouth: + dry oral mucous membranes Respiratory: normal respiratory effort; no labored breathing Neurologic: moves all extremities and awake; not confused Psychiatric: Orientation: oriented x 3 Affect: euthymic affect Genitourinary: incontinent at times PG Care Time/CCT Total # of Minutes Spent Total Time Spent: 65 Total Time Spent with Patient: Total time spent is greater than 50% in coordination of care (as documented) at patient's floor/unit and/or counseling patient: symptom management, patient and family education and support, hospice. Coding Level of Care Code 37612 Initial Inpt Care Lvl 2 Diagnoses Bone pain M89.8X9 AML (acute myeloblastic leukemia) C92.00 Generalized weakness R53.1 Palliative care encounter Z51.5
--- NOTE | 2022-03-04 13:59 | Hospitalist Progress Note ---
Date of Service March 04, 2022 Assessment & Plan (1) Cellulitis of left leg: (2) Symptomatic anemia: (3) AML (acute myeloblastic leukemia): (4) HTN (hypertension): (5) Hypothyroidism: (6) Pancytopenia due to antineoplastic chemotherapy: (7) Follicular lymphoma: (8) Immunosuppressed status: Plan: 76 yr female with H/O AML, recurrent follicular lymphoma, history of mucoepidermoid carcinoma, pancytopenia, PAF, HTN, HLD, CKD stage III, thoracic aortic aneurysm, history of DVT status post IVCF, depression with anxiety who presents to ED secondary to bone pain x2 to 3 weeks. Pt did not meet SIRS/SEPSIS criteria on admission. Symptomatic anemia Pancytopenia in setting of AML, Hx of Recurrent Follicular Lymphoma, recent bone marrow bx showed 18% myeloblasts Thrombocytopenia S/P 6 units PRBCs S/P 9 units Platelets Follows with [facility] oncology as outpatient Dr Wilkinson discussed pt with Oncology on 02/23/22 CT abd showed no signs of retroperitoneal bleed Patient is now on comfort care status only Pain not controlled today on current regimen. Started on oxycontin 10mg q12h Already on po morphine and oxycodone IR prn. Discussed with Dr Caldera, clerk specialist. PO morphine and oxycodone changed to IV morphine 2mg q1h prn pain to achieve better pain control Plan to change to po equivalent on discharge. Acute Metabolic Encephalopathy - resolved Febrile Neutropenia Last fever was on 02/25/2022 with a peak of 39.4. Last blood culture negative Off antibiotics Left lower extremity cellulitis Was reported to have left lower extremity cellulitis on presentation. Blood cultures : negative Negative MRSA Completed antibiotics Bilateral lower extremity edema Grade II Diastolic CHF Last echo was suggestive of grade 2 diastolic dysfunction Hyponatremia Last sodium 129 PAF Elevated High Sensitivity troponin Likely demand ischemia in setting of anemia, Infection CKD III Admission and Anticipated Discharge Date Admission Date: February 11, 2022 Subjective Patient seen and examined Patient is now on comfort care status only Reports pain was better controlled yesterday but has become worse today Pain is reported in the long bones of upper and lower extremities and low back Denied any fevers, chills, nausea, vomiting, abd pain, diarrhea, dysuria, freq, urgency Physical Exam Constitutional: + well hydrated; no acute distress ENMT: external ear and nose normal, oropharynx normal Respiratory: normal respiratory effort, lungs clear to auscultation Cardiovascular: Rate/Rhythm: regular rate and regular rhythm S1 S2 Gastrointestinal (Abdomen): normal bowel sounds, soft, nontender, no hepatosplenomegaly Musculoskeletal: Pedal edema Neurologic: PERRL, EOMI, accommodation nl, no face palsy, no dysarthria Psychiatric: A+Ox3, euthymic affect
[2022-03-04] MEDS: MoRPHine SULFATE 2 MG/ML CARP IV PRN ×7 (14:56→22:24)
[2022-03-05] MEDS: MoRPHine SULFATE 2 MG/ML CARP IV PRN ×7 (00:39→11:17)
[2022-03-05] MEDS: ONDANSETRON INJ 2 MG/ML 2 ML VIAL IV PRN ×2 (05:46→10:15)
[2022-03-05] MEDS: GABAPENTIN 300 MG CAP PO SCH ×4 (07:39→20:30)
[2022-03-05] MEDS: SENNA 8.6 MG TAB PO SCH (07:40)
[2022-03-05] MEDS ORDERED: STAT IV Infusion **Titration per Protocol STA (09:53)
[2022-03-05] MEDS: LORazepam 2 MG/1 ML VIAL IV PRN (10:15)
--- NOTE | 2022-03-05 11:54 | Palliative Care Progress Note ---
Date of Service March 05, 2022 Assessment & Plan (1) Bone pain: Plan: Not controlled. Alisha feels that she would rather than have pain at current level. Her daughter is tearful and concerned about her mother's comfort. Given escalating uncontrolled pain and opioid dosing, she would benefit from opioid infusion. Will rotate opioid to hydromorphone infusion. Discontinue long acting oxycodone and also IV morphine when infusion starts. Discussed with RN. (2) Anxiety: Plan: Related to pain. Continue prn lorazepam. (3) Nausea: Plan: On zofran. Monitor with opioid rotation. (4) Palliative care encounter: Plan: Talked with Alisha and her daughter about options for pain control and increased comfort. They are very concerned about going home if pain is not controlled. Reassured them that she would remain here until pain is adequately controlled and that hospice would be able to manage infusion at home. Discussed with case management. (5) Pancytopenia due to antineoplastic chemotherapy: (6) AML (acute myeloblastic leukemia): Admission and Anticipated Discharge Date Admission Date: February 11, 2022 Subjective Increased pain since yesterday. She c/o 14/10 pain which is not relieved with IV morphine. She has had 26mg OME last 24 hours. Pain is the same in character but more severe. Also c/o frontal headache. Review of Systems Review of Systems: [place] Symptom Assessment Scale Pain 3/3 Dyspnea 0/3 Nausea 2/3 Anxiety 2/3 Drowsiness 1/3 Palliative Performance Score 30% Physical Exam Constitutional: + ill appearing; + uncomfortable ENMT: Mouth: + dry oral mucous membranes Respiratory: no labored breathing and does not use accessory muscles Neurologic: moves all extremities and awake; not confused Psychiatric: Affect: + anxious affect and + tearful affect PG Care Time/CCT Total # of Minutes Spent Total Time Spent: 40 Total Time Spent with Patient: Total time spent is greater than 50% in coordination of care (as documented) at patient's floor/unit and/or counseling patient: symptom management, patient and family education and support Coding Level of Care Code 36781 Subseq Hosp Care Lvl 3 Diagnoses Bone pain M89.8X9 Anxiety F41.9 Nausea R11.0 Palliative care encounter Z51.5 Pancytopenia due to antineoplastic chemotherapy D61.810; T45.1X5A AML (acute myeloblastic leukemia) C92.00
[2022-03-05] MEDS: HYDROmorphone/NSS 100 MG/100 ML BAG IV SCH ×2 (12:03→12:18)
[2022-03-05] MEDS: BENZOCAINE 20% (ORAJEL) 11.9 GM TUBE MT SCH ×3 (12:13→20:29)
--- NOTE | 2022-03-05 15:07 | Hospitalist Progress Note ---
Date of Service March 05, 2022 Assessment & Plan (1) Cellulitis of left leg: (2) Symptomatic anemia: (3) AML (acute myeloblastic leukemia): (4) HTN (hypertension): (5) Hypothyroidism: (6) Pancytopenia due to antineoplastic chemotherapy: (7) Follicular lymphoma: (8) Immunosuppressed status: Plan: 76 yr female with H/O AML, recurrent follicular lymphoma, history of mucoepidermoid carcinoma, pancytopenia, PAF, HTN, HLD, CKD stage III, thoracic aortic aneurysm, history of DVT status post IVCF, depression with anxiety who presents to ED secondary to bone pain x2 to 3 weeks. Pt did not meet SIRS/SEPSIS criteria on admission. Symptomatic anemia Pancytopenia in setting of AML, Hx of Recurrent Follicular Lymphoma, recent bone marrow bx showed 18% myeloblasts Thrombocytopenia S/P 6 units PRBCs S/P 9 units Platelets Follows with [facility] oncology as outpatient Dr Wilkinson discussed pt with Oncology on 02/23/22 CT abd showed no signs of retroperitoneal bleed Patient is now on comfort care status only Pain was not well controlled on previous regimen Palliative specialist on board. Patient now on morphine drip Needs optimal pain control prior to dc on home hospice Acute Metabolic Encephalopathy - resolved Febrile Neutropenia Last fever was on 02/25/2022 with a peak of 39.4. Last blood culture negative Off antibiotics Left lower extremity cellulitis Completed antibiotics Bilateral lower extremity edema Grade II Diastolic CHF Last echo was suggestive of grade 2 diastolic dysfunction Hyponatremia Last sodium 129 PAF Elevated High Sensitivity troponin Likely demand ischemia in setting of anemia, Infection CKD III Admission and Anticipated Discharge Date Admission Date: February 11, 2022 Subjective Patient seen and examined Per daughter, patient was in severe pain this morning Palliative saw earlier and started morphine drip Patient's pain currently appear controlled. She is drowsy but arousable. Daughter and daughter in law at bedside Patient reports her pain is better controlled. Review of Systems Review of Systems: Limited ROS due to drowsiness Physical Exam Constitutional: + well hydrated; no acute distress Eyes: PERRL, conjunctivae normal, anicteric sclerae ENMT: external ear and nose normal, oropharynx normal Respiratory: normal respiratory effort, lungs clear to auscultation Cardiovascular: Rate/Rhythm: regular rate and regular rhythm S1 S2 Gastrointestinal (Abdomen): normal bowel sounds, soft, nontender, no hepatosplenomegaly Musculoskeletal: Pedal edema Psychiatric: PERRL, EOMI. No focal deficits
[2022-03-05] MEDS: FAMOTIDINE 20 MG TAB PO SCH (19:20)
[2022-03-05] MEDS ORDERED: HEPARIN 100 UNIT/ML 5ML FLUSH FLUSH PRN (19:31)
[2022-03-06] MEDS: MoRPHine SULFATE 2 MG/ML CARP IV PRN ×2 (02:10→14:07)
[2022-03-06] MEDS: LORazepam 2 MG/1 ML VIAL IV PRN ×2 (04:20→09:32)
[2022-03-06] MEDS: DICLOFENAC SOD 1% GEL 100 GM TUBE EXT PRN (04:21)
[2022-03-06] MEDS: ONDANSETRON INJ 2 MG/ML 2 ML VIAL IV PRN (07:08)
[2022-03-06] MEDS: GABAPENTIN 300 MG CAP PO SCH ×4 (07:39→21:00)
[2022-03-06] MEDS: FAMOTIDINE 20 MG TAB PO SCH (07:39)
[2022-03-06] MEDS: SENNA 8.6 MG TAB PO SCH (07:39)
[2022-03-06] MEDS: BENZOCAINE 20% (ORAJEL) 11.9 GM TUBE MT SCH ×3 (07:39→21:00)
--- NOTE | 2022-03-06 18:35 | Hospitalist Progress Note ---
Date of Service March 06, 2022 Assessment & Plan (1) Cellulitis of left leg: (2) Symptomatic anemia: (3) AML (acute myeloblastic leukemia): (4) HTN (hypertension): (5) Hypothyroidism: (6) Pancytopenia due to antineoplastic chemotherapy: (7) Follicular lymphoma: (8) Immunosuppressed status: Plan: Patient is a 76 yr female with H/O AML, recurrent follicular lymphoma, history of mucoepidermoid carcinoma, pancytopenia, PAF, HTN, HLD, CKD stage III, thoracic aortic aneurysm, history of DVT status post IVCF, depression with anxiety who presents to ED secondary to bone pain x2 to 3 weeks. Pt did not meet SIRS/SEPSIS criteria on admission. Symptomatic anemia Pancytopenia in setting of AML, Hx of Recurrent Follicular Lymphoma, recent bone marrow bx showed 18% myeloblasts Thrombocytopenia S/P 6 units PRBCs S/P 9 units Platelets Follows with [facility] oncology as outpatient CT abd showed no signs of retroperitoneal bleed Currently on comfort measures only Appreciate palliative care input Acute Metabolic Encephalopathy - resolved Febrile Neutropenia Last blood culture negative Off antibiotics Left lower extremity cellulitis Completed antibiotic course Bilateral lower extremity edema Grade II Diastolic CHF Last echo was suggestive of grade 2 diastolic dysfunction Hyponatremia PAF CKD III Code Status DNI DNR On comfort measures only Admission and Anticipated Discharge Date Admission Date: February 11, 2022 Subjective Patient is seen and examined at bedside Currently on comfort measures only On Dilaudid pump for pain control Discussed with patient's daughter at bedside Patient complains of persistent bone pain Denies any shortness of breath, chest pain Offers no other complaints Review of Systems Review of Systems: All systems reviewed & are unremarkable except as noted in Subjective Physical Exam Physical Exam: Physical Exam: Vitals signs as noted above General Appearance:ill appearing, no apparent distress Head: normocephalic, Atraumatic Eyes: normal inspection, EOMI Neck: supple, Trachea midline Respiratory/Chest: Normal breath sounds, CTA, No accessory muscle use, R port Cardiovascular: S1, S2, +murmur Abdomen/GI:Soft, Non tender, Bowel sounds present Extremities/Musculoskeletal:normal inspection, +LE edema, left LE venous stasis changes Neurologic/Psych:AAO, grossly no focal neurological deficits Skin: normal color, warm
[2022-03-07] MEDS: MoRPHine SULFATE 2 MG/ML CARP IV PRN ×2 (08:24→15:58)
[2022-03-07] MEDS: SENNA 8.6 MG TAB PO SCH (09:47)
[2022-03-07] MEDS: BENZOCAINE 20% (ORAJEL) 11.9 GM TUBE MT SCH ×3 (09:47→21:34)
[2022-03-07] MEDS: FAMOTIDINE 20 MG TAB PO SCH (09:47)
[2022-03-07] MEDS: GABAPENTIN 300 MG CAP PO SCH ×4 (09:47→21:34)
[2022-03-07] MEDS ORDERED: LORazepam 2 MG/1 ML VIAL IV PRN (10:48)
--- NOTE | 2022-03-07 11:05 | Palliative Care Progress Note ---
Date of Service March 07, 2022 Assessment & Plan (1) Bone pain: Plan: Currently controlled on hydromorphone infusion at 1.6mg/h. Monitor for opioid toxicity. Address non physical pain. (2) Anxiety: Plan: I spoke with Gwen at bedside who is concerned that her mother is suffering. She is satisfied with pain control. She does note that when Alisha made the decision to focus on comfort directed care that she expressed fear about the dying process and being alone. I suspect that some of her pain is emotional as well as physical. Discussed addition of routine lorazepam dosing with Gwen and Dr. Wilkinson who are in agreement. Order placed for 0.5mg IV every eight hours routinely with prn dosing. (3) Palliative care encounter: Plan: Gwen is tearful and trying to balance her wish for her mother's suffering to end with the idea of not hearing her voice or being able to talk with her again. We discussed balance of symptom management and sedation as well as natural progression of more lethargy regardless of medication. She very much wants Alisha to be comfortable. At this time she would not be comfortable with Alisha having hospice at home due to concerns about symptom management. I suspect that she will within the next few days. (4) AML (acute myeloblastic leukemia): Admission and Anticipated Discharge Date Admission Date: February 11, 2022 Subjective More lethargic but still responds and recognizes family. Hydromorphone infusion titrated to 1.6mg/h. She denies pain currently. Her daughter feels that pain is controlled at the moment but is worried about her suffering. Review of Systems Review of Systems: [place] Symptom Assessment Scale Pain 0/3 Anxiety 1/3 Dyspnea 0/3 Palliative Performance Score 20% Physical Exam Constitutional: + ill appearing and + lethargic ENMT: Mouth: + dry oral mucous membranes Respiratory: normal respiratory effort; no labored breathing no audible rhonchi Cardiovascular: Rate/Rhythm: regular rate and regular rhythm upper and lower extremity edema Skin: diaphoretic Neurologic: no myoclonus PG Care Time/CCT Total # of Minutes Spent Total Time Spent: 35 Total Time Spent with Patient: Total time spent is greater than 50% in coordination of care (as documented) at patient's floor/unit and/or counseling patient: symptom management, family education and support, coordination of care. Coding Level of Care Code 39635 Subseq Hosp Care Lvl 3 Diagnoses Bone pain M89.8X9 Anxiety F41.9 Palliative care encounter Z51.5 AML (acute myeloblastic leukemia) C92.00
[2022-03-07] MEDS: LORazepam 2 MG/1 ML VIAL IV SCH ×2 (11:33→19:04)
--- NOTE | 2022-03-07 17:26 | Hospitalist Progress Note ---
Date of Service March 07, 2022 Assessment & Plan (1) Cellulitis of left leg: (2) Symptomatic anemia: (3) AML (acute myeloblastic leukemia): (4) HTN (hypertension): (5) Hypothyroidism: (6) Pancytopenia due to antineoplastic chemotherapy: (7) Follicular lymphoma: (8) Immunosuppressed status: Plan: Patient is a 76 yr female with H/O AML, recurrent follicular lymphoma, history of mucoepidermoid carcinoma, pancytopenia, PAF, HTN, HLD, CKD stage III, thoracic aortic aneurysm, history of DVT status post IVCF, depression with anxiety who presents to ED secondary to bone pain x2 to 3 weeks. Pt did not meet SIRS/SEPSIS criteria on admission. Symptomatic anemia Pancytopenia in setting of AML, Hx of Recurrent Follicular Lymphoma, recent bone marrow bx showed 18% myeloblasts Thrombocytopenia S/P 6 units PRBCs S/P 9 units Platelets Follows with [facility] oncology as outpatient CT abd showed no signs of retroperitoneal bleed Currently on comfort measures only Appreciate palliative care input Continue medications for comfort Acute Metabolic Encephalopathy - resolved Febrile Neutropenia Last blood culture negative Off antibiotics Left lower extremity cellulitis Completed antibiotic course Bilateral lower extremity edema Grade II Diastolic CHF Last echo was suggestive of grade 2 diastolic dysfunction Hyponatremia PAF CKD III Code Status DNI DNR On comfort measures only Admission and Anticipated Discharge Date Admission Date: February 11, 2022 Subjective Patient is seen and examined at bedside Currently on comfort measures only Patient still recognizes family Poor oral intake Discussed with palliative care team today Also discussed with patient's family at bedside No distress on exam Review of Systems Review of Systems: Unobtainable due to reduced consciousness Physical Exam Physical Exam: Physical Exam: Vitals signs as noted above General Appearance:ill appearing, no apparent distress Head: normocephalic, Atraumatic Eyes: normal inspection, EOMI Neck: supple, Trachea midline Respiratory/Chest: Normal breath sounds, CTA, No accessory muscle use, R port Cardiovascular: S1, S2, +murmur Abdomen/GI:Soft, Non tender, Bowel sounds present Extremities/Musculoskeletal:normal inspection, +LE edema, left LE venous stasis changes Neurologic/Psych:Alert, awake, grossly no focal neurological deficits Skin: normal color, warm Results & Data Results & Data ([facility]) Vital Signs (Past 12 Hours) Vital Signs Resp 03/07/22 16:08 16
[2022-03-08] MEDS: LORazepam 2 MG/1 ML VIAL IV SCH ×3 (03:08→19:17)
[2022-03-08] MEDS: BENZOCAINE 20% (ORAJEL) 11.9 GM TUBE MT SCH ×3 (07:36→20:29)
[2022-03-08] MEDS: FAMOTIDINE 20 MG TAB PO SCH (07:36)
[2022-03-08] MEDS: GABAPENTIN 300 MG CAP PO SCH ×4 (07:36→20:11)
[2022-03-08] MEDS: SENNA 8.6 MG TAB PO SCH (07:36)
[2022-03-08] MEDS: HYDROmorphone/NSS 100 MG/100 ML BAG IV SCH ×2 (10:54→21:26)
--- NOTE | 2022-03-08 12:01 | Palliative Care Progress Note ---
Date of Service March 08, 2022 Assessment & Plan (1) Bone pain: Plan: Controlled on hydromorphone infusion. (2) Anxiety: Plan: Continue routine lorazepam. (3) Palliative care encounter: Plan: Talked with family at bedside. She appears comfortable and we will continue current regimen. Despite brief periods of apnea, she does not show any other signs of imminent but is likely to with the next day or two. (4) AML (acute myeloblastic leukemia): Admission and Anticipated Discharge Date Admission Date: February 11, 2022 Subjective No response to voice or touch. Tolerates routine care with slight grimace per RN. Hydromorphone infusion remains at 1.6mg/h. Per family at bedside, she has had brief pauses in breathing. Review of Systems Review of Systems: Unobtainable due to reduced consciousness [place] Symptom Assessment Scale Pain by observation 0/3 Dyspnea by observation 0/3 Physical Exam Constitutional: + diaphoretic; no acute distress ENMT: Mouth: + dry oral mucous membranes Respiratory: normal respiratory effort; no labored breathing no audible rhonchi Cardiovascular: Rate/Rhythm: regular rate and regular rhythm Extremities: + edema no mottling Neurologic: + obtunded PG Care Time/CCT Total # of Minutes Spent Total Time Spent: 25 Total Time Spent with Patient: Total time spent is greater than 50% in coordination of care (as documented) at patient's floor/unit and/or counseling patient: symptom management, family support and education Coding Level of Care Code 62608 Subseq Hosp Care Lvl 2 Diagnoses Bone pain M89.8X9 Anxiety F41.9 Palliative care encounter Z51.5 AML (acute myeloblastic leukemia) C92.00
--- NOTE | 2022-03-08 18:25 | Hospitalist Progress Note ---
Date of Service March 08, 2022 Assessment & Plan (1) Cellulitis of left leg: (2) Symptomatic anemia: (3) AML (acute myeloblastic leukemia): (4) HTN (hypertension): (5) Hypothyroidism: (6) Pancytopenia due to antineoplastic chemotherapy: (7) Follicular lymphoma: (8) Immunosuppressed status: Plan: Patient is a 76 yr female with H/O AML, recurrent follicular lymphoma, history of mucoepidermoid carcinoma, pancytopenia, PAF, HTN, HLD, CKD stage III, thoracic aortic aneurysm, history of DVT status post IVCF, depression with anxiety who presents to ED secondary to bone pain x2 to 3 weeks. Pt did not meet SIRS/SEPSIS criteria on admission. Symptomatic anemia Pancytopenia in setting of AML, Hx of Recurrent Follicular Lymphoma, recent bone marrow bx showed 18% myeloblasts Thrombocytopenia S/P 6 units PRBCs S/P 9 units Platelets Follows with [facility] oncology as outpatient CT abd showed no signs of retroperitoneal bleed Currently on comfort measures only Appreciate palliative care input Continue medications for comfort On Dilaudid pump Palliative care following Acute Metabolic Encephalopathy - resolved Febrile Neutropenia Last blood culture negative Off antibiotics Left lower extremity cellulitis Completed antibiotic course Bilateral lower extremity edema Grade II Diastolic CHF Last echo was suggestive of grade 2 diastolic dysfunction Hyponatremia PAF CKD III Code Status DNI DNR On comfort measures only Admission and Anticipated Discharge Date Admission Date: February 11, 2022 Subjective Patient is seen and examined at bedside Unresponsive/obtunded Discussed with patient's daughter at bedside Brief episodes of apneic breathing No distress on exam Review of Systems Review of Systems: All systems reviewed & are unremarkable except as noted in Subjective Physical Exam Physical Exam: Physical Exam: Vitals signs as noted above General Appearance:ill appearing, obtunded Head: normocephalic, Atraumatic Eyes: normal inspection, EOMI Neck: supple, Trachea midline Respiratory/Chest: Normal breath sounds, CTA, No accessory muscle use, R port Cardiovascular: S1, S2, +murmur Abdomen/GI:Soft, Non tender, Bowel sounds present Extremities/Musculoskeletal:normal inspection, +LE edema, left LE venous stasis changes Neurologic/Psych:Obtunded Skin: normal color, warm
[2022-03-09] MEDS: LORazepam 2 MG/1 ML VIAL IV SCH (03:17)
--- NOTE | 2022-03-09 07:54 | Discharge Summary ---
Date of Service March 09, 2022 Admission HPI Per Admitting Provider This is a 76-year-old female who has significant past medical history of AML, recurrent follicular lymphoma, history of mucoepidermoid carcinoma, pancytopenia, HTN, HLD, CKD stage III, thoracic aortic aneurysm, history of DVT status post IVCF, depression with anxiety who presents to ED secondary to bone pain x2 to 3 weeks. Of significance patient was recently hospitalized 01/29/2017 secondary to rectal pain. There was concern for perirectal abscess. She was treated with IV antibiotics and transition to oral Augmentin. Patient admits that prior to being discharged home she noticed redness to her left lower extre mity. She also noticed increased lower extremity edema. She was seen in outpatient setting by PCP. She was felt to have a left lower extremity cellulitis and started on doxycycline. She also had a left lower extremity venous Doppler which was negative for DVT. Overall she feels her redness has improved while on doxycycline; however, she admits to intermittent fevers over the past week. Her T-max was 100 and was last evening. She also notes to increased Long bone pain which she attributes to when her blood counts are low. She specifically complains of pain in her humerus, femur as well as feet. She admits to difficulty time walking secondary to pain. She further admits to 2 episodes of epistaxis. She admits to approximately a tablespoon for each time. These stopped spontaneously. In regards to her AML her last transfusion was during her hospitalization in which she required 2 units of PRBC. She recently had blood work on 02/07 showed hemoglobin of 9.2 and a platelet count of 37. Patient further is concerned about a questionable, "boil on her buttocks." She states she noticed bloody drainage on her brief approximately 2 days ago. She denies any rectal pain that was present in previous in regards to the pararectal abscess. Patient admits to chills of her spine, but denies sweats. Denies lightheadedness, dizziness, syncope, chest pain, shortness breath at rest, he moptysis, hematemesis, nausea, vomiting, melena hematochezia, hematuria, dysuria, increased urgency or frequency with urination. She does admit to dyspnea on exertion. In ED patient remained hemodynamically stable. Her hemoglobin and hematocrit was 6.5 and 19.3 respectively. Her platelet count was 23 WBC 4.08. She was not neutropenic. She did have elevated ESR and CRP at 37 and 8.99 respectively. Her procalcitonin was elevated at 166. Her initial high-sensitivity troponin was elevated at 14. She was started on IV Rocephin due to concern for left lower extremity cellulitis. Admission Exam Per Admitting Provider Physical Exam Physical Exam: Constitutional: WD/WN, ill-appearing female, pale, vitals as above, NAD, sitting up in bed, pleasant, conversing easily Head: Normocephalic, Atraumatic Eyes: PERRL, conjunctivae normal, anicteric sclerae ENMT: external ear and nose normal, oropharynx normal Neck: trachea midline, no thyromegaly normal visual inspection Respiratory: normal respiratory effort, lungs clear to auscultation, no wheeze, rales, rhonchi. Normal insp/exp effort, no accessory muscle use Cardiovascular: RRR, no murmur, bilateral lower extremity edema, left lower extremity pretibial erythema and warmth Vessels: no JVD or carotid bruit Chest: normal inspection of chest Abdomen: normal bowel sounds, soft, nontender, no hepatosplenomegaly Musculoskeletal: no cyanosis or clubbing, active range of motion x4 Skin: no rashes, warm and dry normal turgor Neurologic: PERRL, EOMI, accommodation nl, no face palsy, no dysarthria CN's II-XI intact bilaterally and moves all extremities Psychiatric: A+Ox3, euthymic affect Lymphatic: no cervical or axillary lymphadenopathy : Visual inspection reveals nonthrombosed external hemorrhoids, no evidence of abscess or fistula Principal Diagnosis Acute myeloid leukemia Pancytopenia Recurrent follicular lymphoma H/O Mucoepidermoid carcinoma Hypertension Hyperlipidemia CKD stage III Thoracic aortic aneurysm Discharge Data Allergies Allergy/AdvReac Type Severity Reaction Status Date / Time No Known Allergies Allergy Verified 01/22/22 09:04 Consultations 02/11/22 12:33 ED Decision to Admit Stat 02/12/22 17:57 Consult Pain Management Routine 02/13/22 11:01 Consult Hematology Routine 02/23/22 11:20 Consult Palliative Care Routine 02/25/22 07:59 Consult Gastroenterology Routine Ordered Studies 02/11/22 13:42 CT abd pelvis wo con Stat 02/23/22 09:06 CT abd pelvis wo con Urgent Hospital Course (1) Cellulitis of left leg: (2) Symptomatic anemia: (3) AML (acute myeloblastic leukemia): (4) HTN (hypertension): (5) Hypothyroidism: (6) Pancytopenia due to antineoplastic chemotherapy: (7) Follicular lymphoma: (8) Immunosuppressed status: Patient is a 76 yr female with H/O AML, recurrent follicular lymphoma, history of mucoepidermoid carcinoma, pancytopenia, PAF, HTN, HLD, CKD stage III, thoracic aortic aneurysm, history of DVT status post IVCF, depression with anxiety who presents to ED secondary to bone pain x2 to 3 weeks. Pt did not meet SIRS/SEPSIS criteria on admission. Symptomatic anemia Pancytopenia in setting of AML, Hx of Recurrent Follicular Lymphoma, recent bone marrow bx showed 18% myeloblasts Thrombocytopenia S/P 6 units PRBCs S/P 9 units Platelets Follows with [facility] oncology as outpatient CT abd showed no signs of retroperitoneal bleed Currently on comfort measures only Appreciate palliative care input Continue medications for comfort On Dilaudid pump Palliative care following Acute Metabolic Encephalopathy - resolved Febrile Neutropenia Last blood culture negative Off antibiotics Left lower extremity cellulitis Completed antibiotic course Bilateral lower extremity edema Grade II Diastolic CHF Last echo was suggestive of grade 2 diastolic dysfunction Hyponatremia PAF CKD III Code Status DNI DNR On comfort measures only Patient on 03/09/22 at 7:10 AM as per RN while on Comfort Measures. Patient's daughter at bedside. Total Time Total Time Spent Total Time Spent (In Minutes): 30 minutes Discharge Plan Discharge Items Patient Disposition: Discharge Diagnosis: Acute myeloid leukemia Pancytopenia Recurrent follicular lymphoma H/O Mucoepidermoid carcinoma Hypertension Hyperlipidemia CKD stage III Thoracic aortic aneurysm Other Date/Time: 03/09/22 07:10
== END 2022-03-09 11:20 | disposition expired | DRG 602 ==
LOC: ED 09:36 → 2E 12:45 → SUATTDRO 12:45 → 2E 13:53 → 3E 03-03 16:36